=== PATIENT | female | born 1930 | race Caucasian/White ===

== ENCOUNTER 2016-11-04 11:53 | Inpatient (IN) | payer OTHER, MEDICARE ==
[~2016-11-04] VITALS: Ht 142.2 cm; Wt 57.0 kg
[~2016-11-04 11:53] MED LIST: ALBUAER19 INH; ASPI81TA28 PO; CARB25TA12 PO; CHOL100027 PO; CRG625 PO; FNTTP50 TD; FURO-85 PO; LEVO50TA PO; LOSA50TA6 PO; MIRT1TAB27 PO; MISC4CAP PO; MORP15TA PO; MULTTAB5 PO; PANT40TA PO; POTA-74 PO; PRED-301 PO
[2016-11-04] MEDS ORDERED: ONDANSETRON INJ 2 MG/ML 2 ML VIAL IV STA ×2 (12:11→16:25)
[2016-11-04] MEDS ORDERED: MoRPHine SULFATE 4 MG/ML 1 ML CARP\\VIAL IV STA ×2 (12:11→16:25)
[2016-11-04] MEDS ORDERED: SODIUM CHLORIDE 0.9% 500ML 500 ML IV STA (12:11)
[2016-11-04] MEDS ORDERED: LCHC12280 TOP (12:25)
[2016-11-04] MEDS ORDERED: SERT1TAB88 PO (12:25)
[2016-11-04] MEDS ORDERED: BMX1 PO (12:25)
[2016-11-04] MEDS ORDERED: OPTIRAY 320 IV PRN (12:30)
[2016-11-04 12:49] LABS: BASO % 0.4 %; BASO ABS # 0.03 K/uL (0-0.2); COMPLETE YES; EOS % 1.9 %; HEMATOCRIT 46.3 % (37-47); IG% 1.3 %; LYMPH % 10.6 %; LYMPH ABS # 0.76 K/uL (1.2-3.4); MEAN CELL VOLUME 96.3 fL (80-100); MEAN CORPUSCULAR HEMOGLOBIN 30.8 pg (25-34); MEAN PLATELET VOLUME 9.8 fL (7.4-10.4); MONO % 12.6 %; NEUT % 73.2 %; PLATELET COUNT 256 K/uL (130-400); RED BLOOD COUNT 4.81 M/uL (4.2-5.4)
[2016-11-04 13:11] LABS: BUN/CREATININE RATIO 18.8 (10-20); CALCIUM 9.7 mg/dl (8.5-10.1); CREATININE 1.9 mg/dl (0.60-1.20)
[2016-11-04 14:39] LABS: URINE APPEARANCE CLEAR (CLEAR); URINE BILIRUBIN NEG (NEG); URINE COLOR YELLOW; URINE NITRITE NEG (NEG); URINE PH 7.5 (4.5-7.5); URINE SPECIFIC GRAVITY 1.007 (1.000-1.030); UROBILINOGEN NEG (NEG); ZZUR CULT IF INDIC CLEAN CATCH NO
[2016-11-04 14:43] LABS: MANUAL MICROSCOPIC REQUIRED? NO; REVIEW REQ? NO
--- NOTE | 2016-11-04 15:23 | DIAGNOSTIC IMAGING REPORT ---
ADDENDUM Request has been made to compared to prior studies. No prior CT studies are available for comparison. There is a renal ultrasound dated 03/31/2015 mentioning a cystic mass in the pelvis with follow-up pelvic ultrasonography recommended at that time. There is no record of that being performed at this institution. Despite current maximum dimensions of 4.5 cm appearing to be diminished from the prior measurement of 6.8 cm, this variation is not considered to be accurate as the current modality is CT, with the prior modality ultrasound specifically of the kidneys. Electronically signed by: Jeff Dupree M.D. 11/08/2016 9:21 AM ORIGINAL REPORT ABDOMEN AND PELVIS CT WITHOUT CONTRAST CT DOSE: 466.32 mGy.cm HISTORY: Pain abd pain TECHNIQUE: Multiaxial CT images of the abdomen and pelvis were performed without contrast. COMPARISON STUDY: None. FINDINGS: Lung bases are clear. Minimal dependent basilar atelectasis. Prior cholecystectomy. Several calcified granulomas of liver as well as spleen. Small hiatal hernia. Fat-containing ventral hernia] periumbilical hernia maximum diameter 2.4 cm. This is a nonobstructive finding. Several fluid-filled loops of small bowel suggesting a mild nonobstructive ileus. Considerable wall thickening of the sigmoid colon with multiple diverticuli. There is a second smaller ventral hernia superior to the one previously described. This again is fat-containing and nonobstructing. Bladder is midline. There is a septated cystic mass superior to the residual uterus and/or atrophied uterus measuring 4.5 x 4.0 cm. This potentially is an ovarian lesion with pelvic ultrasonography is suggested. No significant adenopathy within the abdomen and pelvis or inguinal region. IMPRESSION: 1. 4.5 x 4.0 cm septated cystic lesion medially superior to the atrophied and/or partially removed uterus. 2. 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 follow-up pelvic ultrasonography is suggested. 3. Chronic sigmoid diverticulosis. 4. Mild reactive small bowel ileus. 5. Status post cholecystectomy. Electronically signed by: Jeff Dupree M.D. 11/04/2016 3:21 PM
[2016-11-04] MEDS ORDERED: SODIUM CHLORIDE 0.9% 1000ML 1,000 ML IV STA (16:25)
[2016-11-04] MEDS ORDERED: MoRPHine SULFATE 2 MG/ML CARP IV PRN (17:30)
[2016-11-04] MEDS ORDERED: MoRPHine SULFATE 4 MG/ML 1 ML CARP\\VIAL IV PRN (17:30)
[2016-11-04] MEDS ORDERED: SODIUM CHLORIDE 0.9% 1000ML 1,000 ML IV SCH (17:30)
[2016-11-04] MEDS ORDERED: ACETAMINOPHEN IV 650 MG in EMPTY BAG 0 ML IV PRN (17:30)
[2016-11-04] MEDS ORDERED: LORAZEPAM 2 MG/ML 1 ML VIAL IV PRN (17:30)
[2016-11-04] MEDS ORDERED: ALBUTEROL HFA 8 GM INHALER INH PRN (17:30)
[2016-11-04] MEDS ORDERED: LORAZEPAM 0.5 MG TAB PO PRN (17:30)
[2016-11-04] MEDS ORDERED: ACETAMINOPHEN 325 MG TAB PO PRN (17:45)
[2016-11-04] MEDS ORDERED: ONDANSETRON INJ 2 MG/ML 2 ML VIAL IV PRN (17:45)
[2016-11-04] MEDS ORDERED: MAGNESIUM HYDROXIDE SUSP 30 ML UDC PO PRN (17:45)
[2016-11-04] MEDS ORDERED: ALUMINUM/MAGNESIUM/SIMETH (MAALOX MAX) 30 ML UDC PO PRN (17:45)
--- NOTE | 2016-11-04 17:52 | EMERGENCY ROOM VISIT NOTE ---
History Report prepared by Karen: Heidi Kent Under the Supervision of: Dr. Tomi Gentile D.O. First contact with patient: 12:01 Chief Complaint: VOMITING History of Present Illness The patient is a 86 year old female who presents to the Emergency Room with complaints of worsening periumbilical abdominal pain that started 2-3 days ago. She states that nothing makes the pain better or worse. The patient has been experiencing the pain intermittently for a while but typically it goes away and it is not as severe. She is also experiencing nausea and vomiting. She states that she can't keep anything down. Per the patient's daughter, the patient began to experience diarrhea this morning and has 4 episodes. She denies pain or burning with urination and rash. Additionally, the patient complains of skin pain but would not specify where. The patient states that she has a hernia near her umbilicus that has been there for a while. She has a history of a cholecystectomy, appendectomy, and hysterectomy. No fevers greater than 100.4. Source of History: patient, family (daughter) Onset: 2-3 days ago Position: abdomen (periumbilical) Timing: worsening Modifying Factors (Worsening): other (none) Modifying Factors (Relieving): other (none) Associated Symptoms: + diarrhea, + nausea, + vomiting, No rash, No urinary symptoms (pain or burning with urination) Review of Systems See HPI for pertinent positives & negatives. A total of 10 systems reviewed and were otherwise negative. Past Medical & Surgical Medical Problems: (1) abdominal pain (2) Asthma (3) COPD exacerbation (4) Left leg cellulitis Surgical Problems: (1) S/P appendectomy (2) S/P cholecystectomy Family History FH: heart disease Hypertension Kidney disease Kidney stones Social History Smoking Status: Never Smoker Drug Use: none Marital Status: Housing Status: lives with family Occupation Status: retired Current/Historical Medications Scheduled Aspirin (Aspirin Ec), 81 MG PO QAM Bumetanide (Bumetanide), 1 MG PO BID Carbidopa/Levodopa (Sinemet 25MG/100MG), 1 TAB PO BID Carvedilol (Carvedilol), 6.25 MG PO BID Cholecalciferol (Vitamin D 1000 Unit), 1,000 INTER.UNIT PO QPM Lactic Acid (Ammonium Lactate Cream 12%), Unknown Dose TOP BID Levothyroxine Sodium (Synthroid), 50 MCG PO QAM Multiple Vitamins W/ Minerals (Centrum), 1 TAB PO QPM Pantoprazole (Protonix), 40 MG PO QAM Potassium Chloride (Potassium Chloride Er), 10 MEQ PO QAM Prednisone (Prednisone), 5 MG PO QAM Probiotic Product (Align), 4 MG PO DAILY Sertraline HCl (Sertraline HCl), 25 MG PO DAILY Scheduled PRN Albuterol Inhaler (Ventolin Inhaler), 2 PUFFS INH QID PRN for Shortness of Breath Morphine Sulfate (Morphine Sulfate Ir), 1.5 TABS PO TID PRN for Pain Allergies Coded Allergies: Codeine (Verified Allergy, Mild, 11/04/16) Penicillins (Verified Allergy, Mild, ., 11/04/16) tolerated cefepime Banana (Verified Allergy, Unknown, GI symptoms, 11/04/16) Erythromycin (Verified Allergy, Unknown, ., 11/04/16) Sulfa Antibiotics (Verified Allergy, Unknown, Unknown, 11/04/16) Vancomycin (Verified Allergy, Unknown, ., 11/04/16) Cantaloupe (Verified Adverse Reaction, Unknown, GI SYMPTOMS FROM UNSPECIFIED MELONS, 11/04/16) Physical Exam Vital Signs Date Time Temp Pulse Resp B/P Pulse Ox O2 Delivery O2 Flow Rate FiO2 11/04/16 15:52 93 20 150/73 95 Room Air 11/04/16 14:00 90 20 131/86 96 Room Air 11/04/16 12:09 94 Room Air 11/04/16 12:08 94 Room Air 11/04/16 12:08 98 11/04/16 12:05 36.7 94 20 168/101 94 Room Air Physical Exam GENERAL: alert, sitting up in bed, disheveled, chronically ill-appearing, moderate distress EYE EXAM: normal conjunctiva OROPHARYNX: no exudate, no erythema, lips, buccal mucosa, and tongue normal and mucous membranes are dry NECK: supple, no nuchal rigidity, no adenopathy, non-tender LUNGS: Clear to auscultation. Normal chest wall mechanics HEART: no murmurs, S1 normal and S2 normal ABDOMEN: abdomen soft, tender to palpation in the periumbilical region, normo- active bowel sounds, no masses, no rebound or guarding. BACK: Back is symmetrical on inspection and there is no deformity, no midline tenderness, no CVA tenderness. SKIN: no rashes and no bruising UPPER EXTREMITIES: upper extremities are grossly normal. LOWER EXTREMITIES: No pitting edema, calves equal bilaterally. NEURO EXAM: Normal sensorium, cranial nerves II-XII grossly intact, normal speech, no gross weakness of arms, no gross weakness of legs. Medical Decision & Procedures ER Provider Diagnostic Interpretation: CT results have been interpreted by the radiologist and reviewed by me. ABDOMEN AND PELVIS CT WITHOUT CONTRAST CT DOSE: 466.32 mGy.cm HISTORY: Pain abd pain TECHNIQUE: Multiaxial CT images of the abdomen and pelvis were performed without contrast. COMPARISON STUDY: None. FINDINGS: Lung bases are clear. Minimal dependent basilar atelectasis. Prior cholecystectomy. Several calcified granulomas of liver as well as spleen. Small hiatal hernia. Fat-containing ventral hernia] periumbilical hernia maximum diameter 2.4 cm. This is a nonobstructive finding. Several fluid-filled loops of small bowel suggesting a mild nonobstructive ileus. Considerable wall thickening of the sigmoid colon with multiple diverticuli. There is a second smaller ventral hernia superior to the one previously described. This again is fat-containing and nonobstructing. Bladder is midline. There is a septated cystic mass superior to the residual uterus and/or atrophied uterus measuring 4.5 x 4.0 cm. This potentially is an ovarian lesion with pelvic ultrasonography is suggested. No significant adenopathy within the abdomen and pelvis or inguinal region. IMPRESSION: 1. 4.5 x 4.0 cm septated cystic lesion medially superior to the atrophied and/or partially removed uterus. 2. 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 follow-up pelvic ultrasonography is suggested. 3. Chronic sigmoid diverticulosis. 4. Mild reactive small bowel ileus. 5. Status post cholecystectomy. Electronically signed by: Jeff Dupree M.D. 11/04/2016 3:21 PM Laboratory Results 11/04/16 12:26 Red Blood Count 4.81, Mean Corpuscular Volume 96.3, Mean Corpuscular Hemoglobin 30.8, Mean Corpuscular Hemoglobin Concent 32.0, Mean Platelet Volume 9.8, Neutrophils (%) (Auto) 73.2, Lymphocytes (%) (Auto) 10.6, Monocytes (%) (Auto) 12.6, Eosinophils (%) (Auto) 1.9, Basophils (%) (Auto) 0.4, Neutrophils # (Auto ) 5.27, Lymphocytes # (Auto) 0.76, Monocytes # (Auto) 0.91, Eosinophils # (Auto ) 0.14, Basophils # (Auto) 0.03 11/04/16 12:26 Test 11/04/16 12:26 11/04/16 14:15 White Blood Count 7.20 K/uL (4.8-10.8) Red Blood Count 4.81 M/uL (4.2-5.4) Hemoglobin 14.8 g/dL (12.0-16.0) Hematocrit 46.3 % (37-47) Mean Corpuscular Volume 96.3 fL (80-100) Mean Corpuscular Hemoglobin 30.8 pg (25-34) Mean Corpuscular Hemoglobin Concent 32.0 g/dl (32-36) Platelet Count 256 K/uL (130-400) Mean Platelet Volume 9.8 fL (7.4-10.4) Neutrophils (%) (Auto) 73.2 % Lymphocytes (%) (Auto) 10.6 % Monocytes (%) (Auto) 12.6 % Eosinophils (%) (Auto) 1.9 % Basophils (%) (Auto) 0.4 % Neutrophils # (Auto) 5.27 K/uL (1.4-6.5) Lymphocytes # (Auto) 0.76 K/uL (1.2-3.4) Monocytes # (Auto) 0.91 K/uL (0.11-0.59) Eosinophils # (Auto) 0.14 K/uL (0-0.5) Basophils # (Auto) 0.03 K/uL (0-0.2) RDW Standard Deviation 46.1 fL (36.4-46.3) RDW Coefficient of Variation 13.2 % (11.5-14.5) Immature Granulocyte % (Auto) 1.3 % Immature Granulocyte # (Auto) 0.09 K/uL (0.00-0.02) Anion Gap 12.0 mmol/L (3-11) Est Creatinine Clear Calc Drug Dose 14.9 ml/min Estimated GFR () 27.2 Estimated GFR (Non- 23.5 BUN/Creatinine Ratio 18.8 (10-20) Calcium Level 9.7 mg/dl (8.5-10.1) Total Bilirubin 0.9 mg/dl (0.2-1) Direct Bilirubin 0.3 mg/dl (0-0.2) Aspartate Amino Transf (AST/SGOT) 23 U/L (15-37) Alanine Aminotransferase (ALT/SGPT) 6 U/L (12-78) Alkaline Phosphatase 43 U/L (45-117) Total Protein 6.6 gm/dl (6.4-8.2) Albumin 3.3 gm/dl (3.4-5.0) Lipase 503 U/L (73-393) Urine Color YELLOW Urine Appearance CLEAR (CLEAR) Urine pH 7.5 (4.5-7.5) Urine Specific [place] 1.007 (1.000-1.030) Urine Protein NEG (NEG) Urine Glucose (UA) NEG (NEG) Urine Ketones NEG (NEG) Urine Occult Blood 1+ (NEG) Urine Nitrite NEG (NEG) Urine Bilirubin NEG (NEG) Urine Urobilinogen NEG (NEG) Urine Leukocyte Esterase SMALL (NEG) Urine WBC (Auto) 1-5 /hpf (0-5) Urine RBC (Auto) 0-4 /hpf (0-4) Urine Hyaline Casts (Auto) 1-5 /lpf (0-5) Urine Epithelial Cells (Auto) 5-10 /lpf (0-5) Urine Bacteria (Auto) NEG (NEG) Laboratory results per my review. Medications Administered Medications (Trade) Dose Ordered Sig/Zack Route Start Time Stop Time Status Last Admin Dose Admin Sodium Chloride (Nss 500ml) 500 ml @ 999 mls/hr Q31M STAT IV 11/04/16 12:11 11/04/16 12:41 DC 11/04/16 12:42 999 MLS/HR Ondansetron HCl (Zofran Inj) 4 mg NOW STAT IV 11/04/16 12:11 11/04/16 12:14 DC 11/04/16 12:42 4 MG Morphine Sulfate 4 mg 4 mg NOW STAT IV 11/04/16 12:11 11/04/16 12:14 DC 11/04/16 12:42 4 MG Sodium Chloride (Nss 1000ml) 1,000 ml @ 999 mls/hr Q1H1M STAT IV 11/04/16 16:25 12/30/16 17:25 DC 11/04/16 16:45 999 MLS/HR Morphine Sulfate (MoRPHine SULFATE INJ) 4 mg NOW STAT IV 11/04/16 16:25 11/04/16 16:26 DC 11/04/16 16:45 4 MG ECG Indication: nausea Rate (beats per minute): 97 Rhythm: sinus rhythm Findings: Q waves (Septal), ST depression (Lateral), left axis deviation, prolonged QT Comparison ECG Date: 02/26/2016 Change: prolonged QT and ST depressions are new ED Course ED COURSE: Vital signs were reviewed and showed hypertension. The patients medical record was reviewed The above diagnostic studies were performed and reviewed. ED treatments and interventions as stated above. 1203: The patient was evaluated in room C8. A complete history and physical examination was performed. 1211: Ordered Morphine Sulfate 4 mg IV, Zofran 4 mg IV, Sodium Chloride 500 ml @ 999 mls/hr IV 1303: I reassessed the patient. She is still nauseous. 1415: I went to reassess the patient but they are currently getting her urine sample. 1624: Upon reevaluation, the patient is resting comfortably. She requested more medicine for her pain. I discussed my findings with the patient and she understands and agrees with the treatment plan. Based on the patients age, coexisting illnesses, exam and lab findings the decision to treat as an inpatient was made. The patient remained stable while under my care. The patient will be evaluated for further management. 1625: Ordered Morphine Sulfate 4 mg IV, Sodium Chloride 1000 ml @ 999 mls/hr IV 1626: I reviewed the patient's case with Dr. Timur Valdivia [facility] [place]. He will evaluate the patient for further management. Medical Decision Differential diagnoses includes but is not limited to gastritis, peptic ulcer disease, GERD, gallbladder disease, pancreatitis, small bowel obstruction, acute coronary syndrome, pericarditis, ischemic bowel, irritable bowel disease, irritable bowel syndrome, appendicitis, diverticulitis, malignancy, hernia, urinary tract infection, torsion, /ectopic , perforation, trauma, infectious. Patient is an 86-year-old female who presents the ER for epigastric/ periumbilical abdominal pain which has been worsening for the past 2-3 days. She has associated vomiting and diarrhea. No fevers greater than 100.4. Patient has been unable to eat or drink anything for the past couple days. IV along with labs and CT were performed. Creatinine is chronically elevated at 1.9. Potassium is slightly low at 3 and lipase is elevated at 500. With the location of her pain this could be consistent with pancreatitis however the lipase is only mildly elevated and this elevation could be simply secondary to vomiting. UA was negative. CT of the abdomen and pelvis shows a mild ileus with pelvic lesion that is likely cancers. Family and patient were updated regards to this. She was given multiple doses of IV narcotics and Zofran. She has been unable to eat or drink. Her EKG does show ST wave changes in the lateral leads which I favor is demand secondary to the vomiting. Patient was hydrated and will be evaluated by 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 for further workup. Consults Time Called: 162 Consulting Physician: Dr. Timur TOSCANO Returned Call: [phone] I reviewed the patient's case with Dr. Timur TOSCANO. He will evaluate the patient for further management. Impression Primary Impression: Ileus Additional Impressions: Vomiting, Epigastric abdominal pain, Acute electrocardiogram changes Scribe Attestation The scribe's documentation has been prepared under my direction and personally reviewed by me in its entirety. I confirm that the note above accurately reflects all work, treatment, procedures, and medical decision making performed by me. Departure Information Dispostion Being Evaluated By Hospitalist Referrals Mil Durand M.D. (PCP) Patient Instructions A Signature Page, My [facility]
--- NOTE | 2016-11-04 18:27 | HISTORY & PHYSICAL EXAMINATION ---
DATE OF ADMISSION: 11/04/2016 REASON FOR PRESENTATION: Abdominal pain and back pain. ADMITTING DIAGNOSIS: Intractable back pain. HISTORY OF PRESENT ILLNESS: Ms. Madison is an 86-year-old female who presents with chronic both back and abdominal pain, worsened in nature. The patient states her back pain is near her sacrum and she points to sacroiliac joints. Abdominal pain. She had been telling her daughter was in her flanks; however, she told me it is bilateral lower quadrants and suprapubic. The patient has a history of a pelvic cyst has been evaluated by Dr. Mitchell as an outpatient, felt to be stable. In the Emergency Department, the patient required parenteral opiates for pain control. The patient takes chronic steroids. The patient has been having diarrhea at home, which she blames on using prune juice at the urging of one of her physicians. PAST MEDICAL HISTORY: Significant for COPD/asthma, left lower extremity cellulitis, appendectomy, hysterectomy, cholecystectomy, anxiety, chronic pain for which she takes opiates and steroids, chronic kidney disease stage III, hypothyroidism, stable pelvic mass, peripheral vascular disease, GERD and Parkinson disease. MEDICATIONS: On presentation include albuterol inhaler as needed, aspirin 81 a day, Bumex 1 mg b.i.d., Sinemet 25/100 b.i.d., Coreg 6.25 b.i.d., vitamin D 1000 a day, Synthroid 50 mcg a day, MSIR 22.5 mg t.i.d. p.r.n., multivitamin once a day, Protonix 40 a day, prednisone 5 a day, potassium 10 a day, probiotic daily daily. SOCIAL HISTORY: Does not smoke, never did. Does not drink. She is a , lives with her daughter who is accompanying her at the bedside. FAMILY HISTORY: Significant for heart disease, hypertension and kidney stones. REVIEW OF SYSTEMS: The patient is slightly confused after be giving her some pain control in the Emergency Department. She states that these are her typical pain, these have been made worse most recently, she cannot say by what. She does not necessarily associate her diarrhea with the pain, but the diarrhea is a new symptom. She denies any mechanical injuries to her back but her back pain is sharp in nature, listed a 10/10, worse with movement and palpation. PHYSICAL EXAMINATION: GENERAL: She is generally pleasant. She is lying on her side. She is awake and alert. She is oriented to person and place but not time. VITAL SIGNS: Show temperature 36.7, pulse 93, respiration rate is 20, BP 150/73, O2 sat 95% on room air. HEENT: PERRL, EOMI. Oropharynx is with dry mucous membranes. NECK: The trachea midline. There is no JVD. HEART: Regular, distant, without murmur. LUNGS: Clear without wheezes or crackles. Good air movement. BACK: Spine is kyphotic and she is mildly tender at the flanks at the bottom of her ribs but her ribs are actually touching her superior iliac crest. She is tender over the sacroiliac joint areas. She has no straight leg raising tenderness. ABDOMEN: Normoactive bowel sounds, soft, nontender. EXTREMITIES: Without edema. NEUROLOGIC: Cranial nerves II-XII are intact. Equal symmetrical strength and sensation in upper and lower extremity, but her general strength level is low, it is unclear whether this is from her medication or her overall milieu. LABORATORY DATA: White count of 7, H\T\H 14 and 46, platelet count 256. BUN and creatinine 36/1.9. Glucose is 106, potassium is low at 3.0, her calcium is intact, magnesium was not checked. Lipase is mildly elevated to 503. Her urinalysis is 1+ blood, small leukocyte esterase. IMAGING DATA: She did have a CT scan of her abdomen and pelvis which shows a 4.5 x 4 cm septated cystic mass in her pelvis, this is similar to the mass seen in March of 2015. ASSESSMENT: An 86-year-old female with exacerbations of her chronic pain, likely possibly from a metabolic encephalopathy from urinary tract infection POA with hypokalemia from diarrhea. PLAN: The patient will be admitted to our facility. She will be hydrated with potassium and she will be given a dose of magnesium tonight. She will have stool cultures done for both C. diff and general micro. She will have a urine cultures sent. She will have pain control with oral and intravenous pain medications. We will attempt to use Lidoderm patch. We will hold the diuretics and hydrate her with saline containing potassium for 2 liters. We will maintain her other home medications. Heparin will be used for DVT prevention. She is a full code. She will be given stress dose steroids at this time; they can be tapered when the primary team MTDD
[2016-11-04 19:48] VITALS: BP 170/89; PULSE 101; TEMP 36.9; O2SAT 91
[2016-11-04] MEDS ORDERED: MAGNESIUM SULFATE 1GM / D5W 1 GM in PREMIXED IN D5W 100 ML IV ONE (19:57)
[2016-11-04 20:33] LABS: HEMATOCRIT 42.6 % (37-47); MEAN CELL VOLUME 97.9 fL (80-100); MEAN CORPUSCULAR HEMOGLOBIN 30.8 pg (25-34); MEAN CORPUSCULAR HGB CONC 31.5 g/dl (32-36); MEAN PLATELET VOLUME 9.4 fL (7.4-10.4); PLATELET COUNT 205 K/uL (130-400); RED BLOOD COUNT 4.35 M/uL (4.2-5.4)
[2016-11-04] MEDS: POTASSIUM CHLORIDE INJ 40 MEQ in SODIUM CHLORIDE 0.9% 1000ML 1,000 ML IV SCH (20:36)
[2016-11-04 20:40] LABS: PROTHROMBIN TIME (PATIENT) 10.5 SECONDS (9.0-12.0)
[2016-11-04 21:45] VITALS: BP 155/88; PULSE 95; TEMP 36.9; O2SAT 93
[2016-11-04] MEDS: MoRPHine SULFATE IR 15 MG TAB (IMMEDIATE RELEASE) PO PRN (21:48)
[2016-11-04] MEDS: CARBIDOPA/LEVODOPA 25/100MG TAB PO SCH (21:48)
[2016-11-04] MEDS: CARVEDILOL 6.25 MG TAB PO SCH (21:48)
[2016-11-04] MEDS: HEPARIN SOD 5000 UNIT/0.5 ML CARP SQ SCH (21:49)
[2016-11-04] MEDS: HYDROCORTISONE IV 50 MG in SYRINGE 0 ML IV SCH (21:50)
[2016-11-04 22:27] VITALS: BP 170/89; PULSE 101; TEMP 36.9; O2SAT 91; Ht 142.2 cm; Wt 57.0 kg
[2016-11-05 00:30] VITALS: BP 171/94; PULSE 92; TEMP 36.6; O2SAT 92
[2016-11-05 06:00] LABS: HEMATOCRIT 38.8 % (37-47); MEAN CELL VOLUME 97.5 fL (80-100); MEAN CORPUSCULAR HEMOGLOBIN 29.9 pg (25-34); MEAN CORPUSCULAR HGB CONC 30.7 g/dl (32-36); MEAN PLATELET VOLUME 9.7 fL (7.4-10.4); PLATELET COUNT 195 K/uL (130-400); RED BLOOD COUNT 3.98 M/uL (4.2-5.4); WHITE BLOOD COUNT 5.57 K/uL (4.8-10.8)
[2016-11-05] MEDS: HYDROCORTISONE IV 50 MG in SYRINGE 0 ML IV SCH ×2 (06:36→13:39)
[2016-11-05] MEDS: LEVOTHYROXINE 50 MCG TAB PO SCH (06:36)
[2016-11-05] MEDS: MoRPHine SULFATE IR 15 MG TAB (IMMEDIATE RELEASE) PO PRN (06:44)
[2016-11-05 07:17] LABS: BUN/CREATININE RATIO 16.3 (10-20); CREATININE 1.6 mg/dl (0.60-1.20); POTASSIUM 4.2 mmol/L (3.5-5.1)
[2016-11-05 07:30] VITALS: BP 171/87; PULSE 83; TEMP 36.5; O2SAT 94
[2016-11-05] MEDS: POTASSIUM CHLORIDE INJ 40 MEQ in SODIUM CHLORIDE 0.9% 1000ML 1,000 ML IV SCH (08:29)
[2016-11-05 08:30] VITALS: O2SAT 94
[2016-11-05] MEDS: CARVEDILOL 6.25 MG TAB PO SCH ×2 (09:47→20:15)
[2016-11-05] MEDS: CARBIDOPA/LEVODOPA 25/100MG TAB PO SCH ×2 (09:47→20:14)
[2016-11-05] MEDS: PANTOprazole SOD 40 MG TAB PO SCH (09:48)
[2016-11-05] MEDS: ASPIRIN 81 MG ECTAB PO SCH (09:48)
[2016-11-05] MEDS: SERTRALINE HCL 50 MG TAB PO SCH (09:48)
[2016-11-05] MEDS: LIDODERM (LIDOCAINE) PATCH 5% TD SCH (09:49)
[2016-11-05] MEDS: HEPARIN SOD 5000 UNIT/0.5 ML CARP SQ SCH ×2 (09:50→20:16)
[2016-11-05 14:46] VITALS: BP 110/58; PULSE 70; TEMP 36.9; O2SAT 93
--- NOTE | 2016-11-05 15:39 | Progress Note ---
Subjective Date of Service: Nov 05, 2016. Subjective Pt evaluation today including: conversation w/ patient, conversation w/ family , physical exam, lab review, review of inpatient medication list Pain: chronic back pain PO Intake: improving Voiding: no voiding problems patient feeling better today but still very weak and tired she really wants to go home and rest but no real clear way to get her home because she is not strong enough to walk long talk with her and her daughters who live with her in [place] they agree that she needs to stay tonight and try to assess her strength tomorrow certainly fluids helped, she will continue to try to increase her intake Problem List Medical Problems: (1) Acute electrocardiogram changes Status: Acute (2) Cellulitis Status: Acute (3) Distal radius fracture, left Status: Acute (4) Encounter for wound re-check Status: Acute (5) Epigastric abdominal pain Status: Acute (6) Ileus Status: Acute (7) Left radial head fracture Status: Acute (8) Lower extremity edema Status: Acute (9) Swelling of left extremity Status: Acute (10) Traumatic ecchymosis of left lower leg Status: Acute (11) Vomiting Status: Acute Review of Systems Constitutional: + fatigue, + weakness Musculoskeletal: + joint pain (back) Neurologic: + balance problems, + weakness Psychiatric: + anxiety All Other Systems: Reviewed and Negative Medications Current Inpatient Medications Medications (Trade) Dose Ordered Sig/Zack Route Start Time Stop Time Status Last Admin Dose Admin Ioversol (Optiray 320) 125 ml UD PRN IV 11/04/16 12:30 11/08/16 12:29 Albuterol (Ventolin Hfa Inhaler) 2 puffs QID PRN INH 11/04/16 17:30 12/04/16 17:29 Aspirin (Ecotrin Tab) 81 mg QAM PO 11/05/16 08:00 12/05/16 08:59 11/05/16 09:48 81 MG Carbidopa/Levodopa (Sinemet 25/ 100MG Tab) 1 tab BID PO 11/04/16 20:00 12/04/16 20:59 11/05/16 09:47 1 TAB Carvedilol (Coreg Tab) 6.25 mg BID PO 11/04/16 20:00 12/04/16 20:59 11/05/16 09:47 6.25 MG Levothyroxine Sodium (Synthroid Tab) 50 mcg DAILYBB PO 11/05/16 06:30 12/05/16 06:59 11/05/16 06:36 50 MCG Pantoprazole Sodium (Protonix Tab) 40 mg QAM PO 11/05/16 08:00 12/05/16 08:59 11/05/16 09:48 40 MG Sertraline HCl 25 mg 25 mg DAILY PO 11/05/16 08:00 12/05/16 08:59 11/05/16 09:48 25 MG Hydrocortisone Sodium Succinate/ Syringe (Solu-Cortef IV/ Syringe) 1 ml @ 4 mls/min Q8 IV 11/04/16 22:00 12/04/16 21:59 11/05/16 13:39 4 MLS/MIN Morphine Sulfate (MoRPHine SULFATE INJ) 2 mg Q4H PRN IV 11/04/16 17:30 11/18/16 17:29 Morphine Sulfate (MoRPHine SULFATE INJ) 4 mg Q4H PRN IV 11/04/16 17:30 11/18/16 17:29 Lorazepam (Ativan Inj) 0.5 mg Q4H PRN IV 11/04/16 17:30 12/04/16 17:29 Lorazepam 0.5 mg 0.5 mg Q6 PRN PO 11/04/16 17:30 12/04/16 17:29 Acetaminophen/ Empty Bag (Ofirmev IV/ Empty Iv Bag 100ml) 65 ml @ 260 mls/hr Q6H PRN IV 11/04/16 17:30 12/04/16 17:29 Morphine Sulfate (MoRPHine SULFATE IR TAB) 15 mg Q8H PRN PO 11/04/16 17:30 11/18/16 17:29 11/05/16 06:44 15 MG Lidocaine (Lidoderm Patch 5%) 1 patch QAM TD 11/05/16 08:00 12/05/16 08:59 11/05/16 09:49 1 PATCH Miscellaneous 1 ea 1 ea DAILY@21 N/A 11/05/16 21:00 12/05/16 20:59 Potassium Chloride/Sodium Chloride (KCl Inj/Nss 1000ml) 1,020 ml @ 80 mls/hr [id number] IV 11/04/16 20:00 12/04/16 19:59 12/31/16 08:29 80 MLS/HR Acetaminophen (Tylenol Tab) 650 mg Q4H PRN PO 11/04/16 17:45 12/04/16 17:44 Al Hydrox/Mg Hydrox/Simethicone (Maalox Max Susp) 15 ml Q4H PRN PO 11/04/16 17:45 12/04/16 17:44 Magnesium Hydroxide (Milk Of Magnesia Susp) 30 ml Q6H PRN PO 11/04/16 17:45 12/04/16 17:44 Ondansetron HCl (Zofran Inj) 4 mg Q6H PRN IV 11/04/16 17:45 12/04/16 17:44 11/04/16 22:25 4 MG Heparin Sodium (Porcine) (Heparin Sq 5000 Unit/0.5ml) 5,000 unit Q12 SQ 11/04/16 21:00 12/04/16 20:59 11/05/16 09:50 5,000 UNIT Objective Vital Signs Date Time Temp Pulse Resp B/P Pulse Ox O2 Delivery O2 Flow Rate FiO2 11/05/16 14:46 36.9 70 18 110/58 93 Room Air 11/05/16 08:30 94 Room Air 11/05/16 07:30 36.5 83 20 171/87 94 Room Air 11/05/16 00:30 36.6 92 18 171/94 92 Room Air 11/04/16 23:59 Room Air 11/04/16 22:27 36.9 101 20 170/89 91 Room Air 11/04/16 21:45 36.9 95 20 155/88 93 Room Air 11/04/16 19:48 36.9 101 20 170/89 91 Room Air 11/04/16 17:45 87 20 151/87 93 Room Air 11/04/16 15:52 93 20 150/73 95 Room Air Physical Exam General Appearance: WD/WN, no apparent distress Eyes: normal inspection, EOMI, sclerae normal ENT: normal ENT inspection, hearing grossly normal, pharynx normal Neck: supple, no adenopathy, no JVD, trachea midline Respiratory/Chest: chest non-tender, no respiratory distress, no accessory muscle use, + decreased breath sounds Cardiovascular: regular rate, rhythm, no edema, no gallop, no JVD, no murmur Abdomen: normal bowel sounds, non tender, soft, no organomegaly Extremities: non-tender, normal inspection, no pedal edema, no calf tenderness , pelvis stable Neurologic/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, alert, normal mood/affect, oriented x 3, + motor weakness (generalized, cannot stand or transfer independently) Skin: normal color, warm/dry, no rash Laboratory Results Last 24 Hours Test 11/04/16 20:22 11/05/16 05:15 White Blood Count 6.40 K/uL 5.57 K/uL Red Blood Count 4.35 M/uL 3.98 M/uL Hemoglobin 13.4 g/dL 11.9 g/dL Hematocrit 42.6 % 38.8 % Mean Corpuscular Volume 97.9 fL 97.5 fL Mean Corpuscular Hemoglobin 30.8 pg 29.9 pg Mean Corpuscular Hemoglobin Concent 31.5 g/dl 30.7 g/dl RDW Standard Deviation 48.0 fL 48.0 fL RDW Coefficient of Variation 13.4 % 13.3 % Platelet Count 205 K/uL 195 K/uL Mean Platelet Volume 9.4 fL 9.7 fL Prothrombin Time 10.5 SECONDS Prothromb Time International Ratio 1.0 Sodium Level 147 mmol/L Potassium Level 4.2 mmol/L Chloride Level 110 mmol/L Carbon Dioxide Level 27 mmol/L Anion Gap 10.0 mmol/L Blood Urea Nitrogen 26 mg/dl Creatinine 1.60 mg/dl Est Creatinine Clear Calc Drug Dose 17.8 ml/min Estimated GFR () 33.5 Estimated GFR (Non- 28.9 BUN/Creatinine Ratio 16.3 Random Glucose 70 mg/dl Calcium Level 8.0 mg/dl Assessment and Plan 86 yo female with h/o chronic back pain, chronic ovarian cyst, presented with increased weakness, confusion, diarrhea - Dehydration due to GI losses causing weakness and confusion: treated with IV fluids confusion resolved today, still very weak and cannot return home at this time safely PT/OT ordered no further diarrhea at this time no signs of UTI, culture negative continue IV fluids over night and encourage PO intake - KOREY on CKD stage III: improving with Cr down to 1.6 from 1.9, continue fluids - Hypokalemia: resolved, NSS at 80cc/hr over night, remove K from fluids - Parkinson disease: continue Sinemet - Chronic pain: continue home medications Try to return home tomorrow
[2016-11-05] MEDS: SODIUM CHLORIDE 0.9% 1000ML 1,000 ML IV SCH (15:47)
[2016-11-05] MEDS ORDERED: COUGH DROP (SUGAR FREE) LOZ 24 LOZ/1 BOX ONE (19:13)
[2016-11-05] MEDS ORDERED: COUGH DROP (SUGAR FREE) LOZ 24 LOZ/1 BOX PO PRN (19:15)
[2016-11-06 00:03] VITALS: BP 150/67; PULSE 87; O2SAT 96
[2016-11-06] MEDS: SODIUM CHLORIDE 0.9% 1000ML 1,000 ML IV SCH (04:29)
[2016-11-06] MEDS: MoRPHine SULFATE IR 15 MG TAB (IMMEDIATE RELEASE) PO PRN (04:49)
[2016-11-06] MEDS: LEVOTHYROXINE 50 MCG TAB PO SCH (06:20)
[2016-11-06 07:15] LABS: BUN/CREATININE RATIO 15.9 (10-20); CALCIUM 7.2 mg/dl (8.5-10.1); CREATININE 1.4 mg/dl (0.60-1.20); POTASSIUM 4.1 mmol/L (3.5-5.1)
[2016-11-06 07:19] VITALS: BP 149/64; PULSE 65; TEMP 36.2; O2SAT 97
[2016-11-06 08:30] VITALS: O2SAT 97
[2016-11-06] MEDS: PANTOprazole SOD 40 MG TAB PO SCH (08:34)
[2016-11-06] MEDS: SERTRALINE HCL 50 MG TAB PO SCH (08:35)
[2016-11-06] MEDS: ASPIRIN 81 MG ECTAB PO SCH (08:35)
[2016-11-06] MEDS: CARBIDOPA/LEVODOPA 25/100MG TAB PO SCH (08:35)
[2016-11-06] MEDS: CARVEDILOL 6.25 MG TAB PO SCH (08:35)
[2016-11-06] MEDS: LIDODERM (LIDOCAINE) PATCH 5% TD SCH (08:35)
[2016-11-06] MEDS: HEPARIN SOD 5000 UNIT/0.5 ML CARP SQ SCH (08:38)
--- NOTE | 2016-11-06 10:14 | Discharge Instructions ---
Discharge Instructions Admission Reason for Admission: Abdominal Pain Discharge Discharge Diagnosis / Problem: Dehydration, acute renal failure (resolved) Discharge Goals Goal(s): Improve function, Increase independence Activity Recommendations Activity Limitations: resume your previous activity Lifting Limitations: none Exercise/Sports Limitations: none Shower/Bathe: no limitations Driving or Machine Use: no driving . Instructions / Follow-Up Instructions / Follow-Up Medications: no changes made You were dehydrated and weak, had renal failure due to the dehydration: Treated with IV fluids, renal function back to baseline, more energy, eating better. Therapy evaluated you, felt you were strong enough to return home with the care that your daughters provide. Make sure you make an extra effort to stay hydrated and eat well the next several day, continue to get rest but also get up and move around to improve your strength. FOLLOW UP - call office of Dr. Durand to schedule a visit in the next week, request a hospital follow up for transition of care Current Hospital Diet Patient's current hospital diet: Regular Diet Discharge Diet Recommended Diet: Regular Diet Pending Studies Studies pending at discharge: no Laboratory Results Last Resulted CBC 11/05/16 05:15 Last Resulted BMP 11/06/16 05:25 Medical Emergencies . Who to Call and When: Medical Emergencies: If at any time you feel your situation is an emergency, please call 911 immediately. . Non-Emergent Contact Non-Emergency issues call your: Primary Care Provider Call Non-Emergent contact if: you have a fever, your pain is concerning you, you have any medication questions . . "Provider Documentation" section prepared by Ben Courtney. VTE Core Measure Inpt VTE Proph given/why not?: SCD's [place] Drug Monitoring Program Search Results: no issues identified
[2016-11-06 11:27] VITALS: BP 149/64; PULSE 65; TEMP 36.2; O2SAT 97
[2016-11-06] MEDS ORDERED: LDDP5 TD (12:49)
[2016-11-06] MEDS ORDERED: ZTHM250 PO (12:49)
[2016-11-06] MEDS ORDERED: AZITHROMYCIN 250 MG TAB PO ONE (13:00)
[2016-11-06] MEDS ORDERED: METR-163 PO (13:28)
--- NOTE | 2016-11-06 15:56 | Discharge Summary ---
Discharge Summary Admission Date: Nov 04, 2016 at 17:47 Discharge Date: Nov 06, 2016 Discharge Disposition: Home Principal Diagnosis: Acute kidney injury Problems/Secondary Diagnoses: C difficile infection Acute bronchitis Chronic back pain with deconditioning Immunizations: Have You Had Influenza Vaccine: No History of Tetanus Vaccine?: Yes Tetanus Immunization Date: Apr 06, 2006 History of Pneumococcal: No History of Hepatitis B Vaccine: Unknown Procedures: none Consultations: none Medication Reconciliation New Medications: Azithromycin (Azithromycin) 250 Mg Tab 250 MG PO DAILY, #4 TABS 0 Refills Metronidazole (Flagyl) 500 Mg Tab 500 MG PO TID for 14 Days, #42 TAB Lidocaine (Lidocaine) 1 Patch Tdsy 1 PATCH TD QAM, #30 PATCH 1 Refill Continued Medications: Albuterol Inhaler (Ventolin Inhaler) Aers 2 PUFFS INH QID PRN for Shortness of Breath, INHALER Aspirin (Aspirin Ec) 81 Mg Tab 81 MG PO QAM Bumetanide (Bumetanide) 1 Mg Tab 1 MG PO BID, #60 Carbidopa/Levodopa (Sinemet 25MG/100MG) Tab 1 TAB PO BID, TAB Carvedilol (Carvedilol) 6.25 Mg Tab 6.25 MG PO BID, #60 Cholecalciferol (Vitamin D 1000 Unit) 1,000 Unit Cap 1000 INTER.UNIT PO QPM, CAP Lactic Acid (Ammonium Lactate Cream 12%) Unknown Strength Cr Unknown Dose TOP BID, #385 Levothyroxine Sodium (Synthroid) 50 Mcg Tab 50 MCG PO QAM, TAB Morphine Sulfate (Morphine Sulfate Ir) 15 Mg Tab 1.5 TABS PO TID PRN for Pain, #100 Multiple Vitamins W/ Minerals (Centrum) 1 Tab Tab 1 TAB PO QPM Pantoprazole (Protonix) 40 Mg Tab 40 MG PO QAM, TAB Potassium Chloride (Potassium Chloride Er) 10 Meq Tab 10 MEQ PO QAM, TAB Prednisone (Prednisone) 5 Mg Tab 5 MG PO QAM Probiotic Product (Align) 4 Mg Cap 4 MG PO DAILY Sertraline HCl (Sertraline HCl) 25 Mg Tab 25 MG PO DAILY, #30 Discharge Exam Patient feeling stronger today, all she wants to do is go home and rest. She ambulated 15 feet twice with PT using walker, cleared to go home Discussed with patient and daughters about going home, told them that she would not have to be discharged if they were uncomfortable with the idea, they agreed that she could go. Concerned about wheezing, discussed that it was faint today, lungs were mostly clear, most sounds from throat. Also, patient ended up testing positive for C diff even though she did not have diarrhea. Planned on using Zithromax for bronchitis so explained that we would need to treat the C diff with Flagyl patient eating and drinking well, discussed that renal function was back to baseline Review of Systems: Constitutional: + fatigue, + weakness, No chills, No fever, No sweats, No weight loss Eyes: No diplopia, No discharge, No eye pain, No problem reported, No redness, No worsening of vision ENT: No dental problems, No hearing loss, No nasal symptoms, No problem reported, No sore throat, No tinnitus, No trouble swallowing, No unusual epistaxis Respiratory: + cough, + wheezing, No dyspnea at rest, No dyspnea on exertion , No hemoptysis, No shortness of breath, No sputum Cardiovascular: No PND, No chest pain, No claudication, No edema, No orthopnea, No palpitations, No problem reported Abdomen: No GI bleeding, No constipation, No diarrhea, No nausea, No pain, No problem reported, No vomiting Musculoskeletal: + joint pain (back, chronic), + muscle pain (back, chronic) , No calf pain, No problem reported, No swelling Genitourinary - Female: No dysuria, No hematuria, No urinary frequency, No urinary incontinence, No urinary retention, No urinary urgency Neurologic: + balance problems, + weakness, No memory loss, No numbness/ tingling, No paralysis, No problem reported, No vertigo Psychiatric: + anxiety, No anhedonism, No depression symptoms, No insomnia, No problem reported, No substance abuse Endocrine: No excessive thirst, No excessive urination, No fatigue, No problem reported Hematologic / Lymphatic: No abnormal bleeding/bruising, No clotting problems , No night sweats, No problem reported, No swollen lymph nodes Integumentary: No bleeding, No color change, No itch, No new/changing skin lesions, No problem reported, No rash Physical Exam: General Appearance: no apparent distress, + thin Eyes: normal inspection, EOMI, sclerae normal ENT: normal ENT inspection, hearing grossly normal, pharynx normal Neck: supple, no adenopathy, no JVD, trachea midline Respiratory/Chest: chest non-tender, no respiratory distress, no accessory muscle use, + wheezing (faint, more on right, mostly upper airway sounds, lower lungs clear and moving air) Cardiovascular: regular rate, rhythm, no edema, no gallop, no JVD, no murmur , normal peripheral pulses Abdomen / GI: normal bowel sounds, non tender, soft, no organomegaly Extremities: normal inspection, no calf tenderness, normal capillary refill , no pedal edema, pelvis stable, + pertinent finding (decrased range of motion of back, legs due to pain, chronic) 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, alert, normal reflexes, oriented x 3, + abnormal gait, + motor weakness (generalized), + pertinent finding (anxious, tearful at times, wanting to go home) Skin: normal color, warm/dry, no rash Lymphatic: no adenopathy Hospital Course 86 yo female with h/o chronic back pain, chronic ovarian cyst, presented with increased weakness, confusion, diarrhea - Dehydration due to GI losses causing weakness and confusion: treated with IV fluids, Cr back to baseline eating better today confusion resolved today, still weak but stronger, wants to return home PT/OT ordered - recommended return home no further diarrhea at this time, however, tested positive for C diff no signs of UTI, culture negative - C diff diarrhea: stools actually now solid, but will treat with Flagyl TID x 14 days - Mild bronchitis: treat with Z gabe, she has albuterol at home, use QID - KOREY on CKD stage III: resolved with Cr down to 1.4 from 1.9, no further need for IV fluids - Hypokalemia: resolved, NSS at 80cc/hr over night, remove K from fluids - Parkinson disease: continue Sinemet - Chronic pain: continue home medications, prescribed Lidoderm patch because it seems to help Long talk with patient and daughters, PT recommends that she can return home. concerned about ability to get in the house discussed that she did not have to be discharged if they want to see if she can get even stronger daughters and patient opted for discharge to home, they feel they should be able to get her in the house follow up with PCP in one week Total Time Spent: Greater than 30 minutes This includes examination of the patient, discharge planning, medication reconciliation, and communication with other providers. Discharge Instructions Please refer to the electronic Patient Visit Report (Discharge Instructions) for additional information. Follow-Up Dr. Durand in one week Additional Copies To Mil Durand M.D.
== END 2016-11-06 14:30 | disposition home or self-care (01) | DRG 683 ==
LOC: ENRESERVDT → ENRESERVTM → EDBD 11:53 → C.EDC 11:55 → C.4E 17:47 → UNDOADMIN 17:47
PROVIDERS: ADMIT Internal Medicine; ATTEND Internal Medicine
DX: N17.9 Acute kidney failure, unspecified (principal); A04.7 Enterocolitis due to Clostridium difficile; J44.0 Chronic obstructive pulmonary disease with (acute) lower respiratory infection; E86.0 Dehydration; J45.909 Unspecified asthma, uncomplicated; G89.29 Other chronic pain; M54.9 Dorsalgia, unspecified; N94.89 Other specified conditions associated with female genital organs and menstrual cycle; R41.0 Disorientation, unspecified; E87.6 Hypokalemia; N18.3 Chronic kidney disease, stage 3 (moderate); E03.9 Hypothyroidism, unspecified; I73.9 Peripheral vascular disease, unspecified; G20 Parkinson's disease; K21.9 Gastro-esophageal reflux disease without esophagitis; Z82.49 Family history of ischemic heart disease and other diseases of the circulatory system; Z79.52 Long term (current) use of systemic steroids; Z79.82 Long term (current) use of aspirin; Z79.899 Other long term (current) drug therapy

== ENCOUNTER 2016-11-09 00:04 | Inpatient (IN) | payer OTHER, MEDICARE ==
[2016-11-09] VITALS (8 sets, daily range): BP systolic 133–161; BP diastolic 70–90; PULSE 88–106; TEMP 36.8–37.3; O2SAT 94–98; Ht 142.2 cm; Wt 58.5 kg
[~2016-11-09] VITALS: Ht 142.2 cm; Wt 58.5 kg
[~2016-11-09 00:04] MED LIST changes: +BMX1 PO; -FNTTP50 TD; -FURO-85 PO; +LCHC12280 TOP; +LDDP5 TD; -LOSA50TA6 PO; +METR-163 PO; -MIRT1TAB27 PO; +SERT1TAB88 PO; +ZTHM250 PO
[2016-11-09] MEDS ORDERED: AZIT250T PO (01:02)
[2016-11-09] MEDS ORDERED: FNTTP50 TD (01:11)
[2016-11-09] MEDS ORDERED: lidocaine patch TD (01:12)
[2016-11-09] MEDS ORDERED: METR-163 PO (01:13)
[2016-11-09 01:34] LABS: BASO % 0.6 %; BASO ABS # 0.03 K/uL (0-0.2); COMPLETE YES; EOS % 1.7 %; HEMATOCRIT 38.4 % (37-47); IG% 3.6 %; LYMPH % 17.6 %; LYMPH ABS # 0.94 K/uL (1.2-3.4); MEAN CELL VOLUME 93.4 fL (80-100); MEAN CORPUSCULAR HEMOGLOBIN 30.2 pg (25-34); MEAN CORPUSCULAR HGB CONC 32.3 g/dl (32-36); MEAN PLATELET VOLUME 9.8 fL (7.4-10.4); MONO % 10.7 %; NEUT % 65.8 %; PLATELET COUNT 196 K/uL (130-400); RED BLOOD COUNT 4.11 M/uL (4.2-5.4); WHITE BLOOD COUNT 5.34 K/uL (4.8-10.8)
[2016-11-09 01:52] LABS: BUN/CREATININE RATIO 11.4 (10-20); CALCIUM 9.1 mg/dl (8.5-10.1); CREATININE 1.2 mg/dl (0.60-1.20); MAGNESIUM 2.4 mg/dl (1.8-2.4); POTASSIUM 4.8 mmol/L (3.5-5.1)
[2016-11-09] MEDS ORDERED: METOCLOPRAMIDE HCL INJ 5 MG/ML 2 ML VIAL IV SCH (02:30)
[2016-11-09] MEDS ORDERED: ONDANSETRON INJ 2 MG/ML 2 ML VIAL IV PRN (02:30)
[2016-11-09] MEDS ORDERED: METRONIDAZOLE / NSS 500 MG in PREMIXED NSS 100 ML IV SCH (02:30)
[2016-11-09] MEDS ORDERED: ACETAMINOPHEN 325 MG TAB PO PRN (02:30)
[2016-11-09] MEDS ORDERED: ALBUTEROL 0.083% NEBU SOLN 3 ML VIAL INH PRN (02:45)
[2016-11-09] MEDS ORDERED: MoRPHine SULFATE 2 MG/ML CARP IV PRN (02:45)
[2016-11-09] MEDS ORDERED: METOCLOPRAMIDE HCL INJ 5 MG/ML 2 ML VIAL IV PRN (02:45)
--- NOTE | 2016-11-09 03:29 | History and Physical ---
History & Physical Date & Time of Service: Nov 09, 2016 at 03:01 Chief Complaint: Vomiting,Wheezing Primary Care Physician: Mil Durand M.D. History of Present Illness Source: patient, family 86 y/o F w/Hx COPD, CAD, OA and chronic pain with narcotic-dependence. She was recently admitted with N/V and diarrhea and diagnosed with C-diff. She has also been complaining of increasing SOB, LE edema and a productive cough with wheezing. Per her daughters she had been complaining of all the above symptoms for a few weeks and prior to her recent admission however her symptoms have now worsened. She was able to tolerate a small amount of soup for dinner but has had difficulty maintaining adequate intake due to persistent nausea and vomiting. She denies CP, has not reported fevers, dysuria, or confusion. She does feel generally weak and has chronic abdominal and back pain which are stable. Past Medical/Surgical History Medical Problems: (1) Asthma Status: Chronic (2) COPD exacerbation Status: Resolved (3) Left leg cellulitis Status: Chronic 4) C diff x 2 5) Osteoarthritis 6) Chronic back and abdominal pain with narcotic-dependence 7) Pelvic cyst 8) CAD - reported histroy of silent [place] Surgical Problems: (1) S/P appendectomy Status: Resolved (2) S/P cholecystectomy Status: Resolved Family History FH: heart disease Hypertension Kidney disease Kidney stones Social History Smoking Status: Never Smoker Drug Use: none Marital Status: Housing status: lives with family Occupational Status: retired Immunizations History of Influenza Vaccine: No History of Tetanus Vaccine?: Yes Tetanus Immunization Date: Apr 06, 2006 History of Pneumococcal: No History of Hepatitis B Vaccine: Unknown Multi-Drug Resistant Organisms History of MDRO: Yes Type of MDRO: MRSA Allergies Coded Allergies: Codeine (Verified Allergy, Mild, 11/09/16) Penicillins (Verified Allergy, Mild, ., 11/09/16) tolerated cefepime Banana (Verified Allergy, Unknown, GI symptoms, 11/09/16) Erythromycin (Verified Allergy, Unknown, ., 11/09/16) Sulfa Antibiotics (Verified Allergy, Unknown, Unknown, 11/09/16) Vancomycin (Verified Allergy, Unknown, ., 11/09/16) Cantaloupe (Verified Adverse Reaction, Unknown, GI SYMPTOMS FROM UNSPECIFIED MELONS, 11/09/16) Home Medications Scheduled Aspirin (Aspirin Ec), 81 MG PO QAM Azithromycin (Zithromax), 250 MG PO DAILY Bumetanide (Bumetanide), 1 MG PO BID Carbidopa/Levodopa (Sinemet 25MG/100MG), 1 TAB PO BID Carvedilol (Carvedilol), 6.25 MG PO BID Cholecalciferol (Vitamin D 1000 Unit), 1,000 INTER.UNIT PO QPM Lactic Acid (Ammonium Lactate Cream 12%), 1 APPLN TOP BID Levothyroxine Sodium (Synthroid), 50 MCG PO QAM Metronidazole (Flagyl), 500 MG PO TID Multiple Vitamins W/ Minerals (Centrum), 1 TAB PO QPM Pantoprazole (Protonix), 40 MG PO QAM Potassium Chloride (Potassium Chloride Er), 10 MEQ PO QAM Prednisone (Prednisone), 5 MG PO QAM Probiotic Product (Align), 4 MG PO DAILY Sertraline HCl (Sertraline HCl), 25 MG PO DAILY [lidocaine patch], 1 PATCH TD QAM Scheduled PRN Albuterol Inhaler (Ventolin Inhaler), 2 PUFFS INH QID PRN for Shortness of Breath Morphine Sulfate (Morphine Sulfate Ir), 1.5 TABS PO TID PRN for Pain Review of Systems Constitutional: + fatigue, + weakness, No chills, No fever, No sweats Eyes: No worsening of vision ENT: No hearing loss, No nasal symptoms, No unusual epistaxis Respiratory: + cough, + dyspnea at rest, + dyspnea on exertion, + shortness of breath, + sputum, + wheezing Cardiovascular: No PND, No chest pain, No orthopnea Abdomen: + diarrhea, + nausea, + pain, + vomiting Musculoskeletal: + joint pain, + muscle pain (Chronic), + problem reported, + swelling (increased LE edema) Genitourinary - Female: No dysuria, No urinary frequency, No urinary urgency Neurologic: No memory loss, No paralysis Psychiatric: No depression symptoms Endocrine: No fatigue Hematologic / Lymphatic: No abnormal bleeding/bruising Integumentary: No rash Allergic / Immunologic: No environmental allergies Physical Exam Vital Signs Date Time Temp Pulse Resp B/P Pulse Ox O2 Delivery O2 Flow Rate FiO2 11/09/16 01:02 77 20 180/89 97 Room Air 11/09/16 00:11 36.8 75 20 96 Room Air General Appearance: no apparent distress, + pertinent finding (Pleasant elderly female - appears slightly lethargic - coughs during exam ) Head: normocephalic, atraumatic Eyes: normal inspection ENT: normal ENT inspection, pharynx normal Neck: supple, no JVD Respiratory/Chest: chest non-tender, no accessory muscle use, + decreased breath sounds (No air entry at L lung base), + crackles (Mild crackles right base ), + wheezing (wheezing throughout lungs) Cardiovascular: regular rate, rhythm, no JVD Abdomen/GI: normal bowel sounds, non tender, soft Back: + pertinent finding (Kyphosis) Extremities/Musculoskelatal: + pedal edema, + pertinent finding ( Osteoarthritic deformities of distal extremities) Neurologic/Psych: die caster II-XII nml as tested, no motor/sensory deficits, alert, normal mood/affect, oriented x 3 Skin: normal color, + pertinent finding (Shallow ulcerations and stasis changes of LEs - no cellulitis) Diagnostics Laboratory Results Results Past 24 Hours Test 11/09/16 01:23 Range/Units White Blood Count 5.34 4.8-10.8 K/uL Red Blood Count 4.11 4.2-5.4 M/uL Hemoglobin 12.4 12.0-16.0 g/dL Hematocrit 38.4 37-47 % Mean Corpuscular Volume 93.4 80-100 fL Mean Corpuscular Hemoglobin 30.2 25-34 pg Mean Corpuscular Hemoglobin Concent 32.3 32-36 g/dl Platelet Count 196 130-400 K/uL Mean Platelet Volume 9.8 7.4-10.4 fL Neutrophils (%) (Auto) 65.8 % Lymphocytes (%) (Auto) 17.6 % Monocytes (%) (Auto) 10.7 % Eosinophils (%) (Auto) 1.7 % Basophils (%) (Auto) 0.6 % Neutrophils # (Auto) 3.52 1.4-6.5 K/uL Lymphocytes # (Auto) 0.94 1.2-3.4 K/uL Monocytes # (Auto) 0.57 0.11-0.59 K/uL Eosinophils # (Auto) 0.09 0-0.5 K/uL Basophils # (Auto) 0.03 0-0.2 K/uL RDW Standard Deviation 44.8 36.4-46.3 fL RDW Coefficient of Variation 13.2 11.5-14.5 % Immature Granulocyte % (Auto) 3.6 % Immature Granulocyte # (Auto) 0.19 0.00-0.02 K/uL Sodium Level 144 136-145 mmol/L Potassium Level 4.8 3.5-5.1 mmol/L Chloride Level 109 98-107 mmol/L Carbon Dioxide Level 25 21-32 mmol/L Anion Gap 10.0 3-11 mmol/L Blood Urea Nitrogen 14 7-18 mg/dl Creatinine 1.20 0.60-1.20 mg/dl Est Creatinine Clear Calc Drug Dose 23.8 ml/min Estimated GFR () 47.4 Estimated GFR (Non- 40.9 BUN/Creatinine Ratio 11.4 10-20 Random Glucose 91 70-99 mg/dl Calcium Level 9.1 8.5-10.1 mg/dl Magnesium Level 2.4 1.8-2.4 mg/dl Troponin I 0.023 0-0.045 ng/ml Pro-B-Type Natriuretic Peptide 2100 0-1800 pg/ml Chemistry Specimen Hemolysis Diagnostic Radiology CXR is consistent with COPD EKG Sinus , IVCD - evidence of previous infarct - no acute changes or evidence of acute ischemia Impression Assessment and Plan 86 y/o F w/Hx COPD, CAD, OA and chronic pain with narcotic-dependence. She was recently admitted with N/V and diarrhea and diagnosed with C-diff. She has also been complaining of increasing SOB, LE edema and a productive cough with wheezing. Per her daughters she had been complaining of all the above symptoms for a few weeks and prior to her recent admission however her symptoms have now worsened. 1) SOB, cough/wheezing - lung exam is abnormal with no air entry into LLL audible - pt was D/Cd recently with a course of Zithromax and uses albuterol PRN - She has a grandson at [facility] with a respiratory illness however her symptoms preceded his. We will obtain a CT chest to determine if she has pneumonia. If pneumonia is present, considering her persistent nausea and vomiting, we would treat for aspiration. A swallow eval will be requested. We will treat for a COPD exacerbation due to her wheezing and persistent SOB. CHF is in the differential although clinically less likely and would avoid diuresis empirically as she has had persistent N/V 2) Nausea and vomiting - intermittent and present for several weeks - Pt will be placed on scheduled Reglan and PRN Zofran - may need GI eval if this is not effective. 3) C - diff - her N/V may be worsened by PO Flagyl - we will change to PO vanc which was previously effective per pt - above allergy info is erroneous 4) CAD - marginal troponin increase without additional evidence of ACS - will repeat troponon, cont ASA, monitor on telemetry 5) LE edema - Lasix held pending resolution of nausea and resumption of adequate intake. May restart depending on CT restart if there is evidence of volume overload. 6) Chronic pain - will remain on prescribed narcotics and IV for breakthrough if she cannot tolerate PO Full code - heparin prophylaxis Above discussed with daughters at bedside Total time for this admit including review of records, imaging, EKG, med rec - discussion with ER attending and pt/family - 42 min Level of Care Telemetry Resuscitation Status FULL RESUSCITATION VTE Prophylaxis VTE Risk Assessment Done? Y/N: Yes Risk Level: Moderate Given or contraindicated: Unfractionated heparin SQ
[2016-11-09] MEDS: LEVOTHYROXINE 50 MCG TAB PO SCH (05:20)
[2016-11-09] MEDS: METHYLPREDNISOLONE IV 40 MG in SYRINGE 0 ML IV SCH ×2 (06:18→15:12)
[2016-11-09] MEDS: HEPARIN SOD 5000 UNIT/0.5 ML CARP SQ SCH ×3 (06:40→19:25)
--- NOTE | 2016-11-09 06:58 | DIAGNOSTIC IMAGING REPORT ---
CHEST ONE VIEW PORTABLE CLINICAL HISTORY: Shortness of breath. COMPARISON STUDY: Chest radiograph May 04, 2016. FINDINGS: The patient is rotated. No consolidation is identified and there is no evidence of pulmonary edema. Cardiomediastinal silhouette is stable. No pneumothorax or pleural effusion is identified. IMPRESSION: No acute cardiopulmonary findings. Electronically signed by: Frank Velez M.D. 11/09/2016 6:57 AM
--- NOTE | 2016-11-09 06:59 | EMERGENCY ROOM VISIT NOTE ---
History Report prepared by Karen: Jignesh Schroeder Under the Supervision of: Dr. Maurice Joyner M.D. First contact with patient: 00:21 Chief Complaint: VOMITING Stated Complaint: VOMITING,WHEEZING History of Present Illness The patient is an 86 year old female who presents to the Emergency Room with complaints of persistent nausea since earlier today. The patient vomited today as well. She has had increased shortness of breath and wheezing for several days. She is retaining fluid in her lower extremities. The patient was recently started on Azithromycin for the breathing problems, which has worsened since then. She was also recently started on Flagyl for C. Diff. The patient had chicken noodle soup for dinner. Source of History: patient Onset: today Position: other (GI) Quality: other (nauseous) Timing: other (persistent) Associated Symptoms: + SOB, + vomiting Note: + fluid retention legs. Review of Systems See HPI for pertinent positives & negatives. A total of 10 systems reviewed and were otherwise negative. Past Medical & Surgical Medical Problems: (1) abdominal pain (2) Asthma (3) COPD exacerbation (4) Dyspnea (5) Left leg cellulitis Surgical Problems: (1) S/P appendectomy (2) S/P cholecystectomy Family History FH: heart disease Hypertension Kidney disease Kidney stones Social History Smoking Status: Never Smoker Drug Use: none Marital Status: Housing Status: lives with family Occupation Status: retired Current/Historical Medications Scheduled Aspirin (Aspirin Ec), 81 MG PO QAM Azithromycin (Zithromax), 250 MG PO DAILY Bumetanide (Bumetanide), 1 MG PO BID Carbidopa/Levodopa (Sinemet 25MG/100MG), 1 TAB PO BID Carvedilol (Carvedilol), 6.25 MG PO BID Cholecalciferol (Vitamin D 1000 Unit), 1,000 INTER.UNIT PO QPM Lactic Acid (Ammonium Lactate Cream 12%), 1 APPLN TOP BID Levothyroxine Sodium (Synthroid), 50 MCG PO QAM Metronidazole (Flagyl), 500 MG PO TID Multiple Vitamins W/ Minerals (Centrum), 1 TAB PO QPM Pantoprazole (Protonix), 40 MG PO QAM Potassium Chloride (Potassium Chloride Er), 10 MEQ PO QAM Prednisone (Prednisone), 5 MG PO QAM Probiotic Product (Align), 4 MG PO DAILY Sertraline HCl (Sertraline HCl), 25 MG PO DAILY [lidocaine patch], 1 PATCH TD QAM Scheduled PRN Albuterol Inhaler (Ventolin Inhaler), 2 PUFFS INH QID PRN for Shortness of Breath Morphine Sulfate (Morphine Sulfate Ir), 1.5 TABS PO TID PRN for Pain Allergies Coded Allergies: Codeine (Verified Allergy, Mild, 11/09/16) Penicillins (Verified Allergy, Mild, ., 11/09/16) tolerated cefepime Banana (Verified Allergy, Unknown, GI symptoms, 11/09/16) Erythromycin (Verified Allergy, Unknown, ., 11/09/16) Sulfa Antibiotics (Verified Allergy, Unknown, Unknown, 11/09/16) Vancomycin (Verified Allergy, Unknown, ., 11/09/16) Cantaloupe (Verified Adverse Reaction, Unknown, GI SYMPTOMS FROM UNSPECIFIED MELONS, 11/09/16) Physical Exam Vital Signs Date Time Temp Pulse Resp B/P Pulse Ox O2 Delivery O2 Flow Rate FiO2 11/09/16 01:02 77 20 180/89 97 Room Air 11/09/16 00:11 36.8 75 20 96 Room Air Physical Exam GENERAL: Patient is elderly appearing and in no acute distress. Mildly anxious appearing. HEENT: No acute trauma, normocephalic atraumatic, mucous membranes moist, no nasal congestion, no scleral icterus. NECK: No stridor, no adenopathy, no meningismus, trachea is midline. LUNGS: Diffuse crackles, mild dyspnea, mild wheezing. HEART: Regular rate and rhythm. No murmurs, rubs, gallops appreciated. ABDOMEN: Soft, nontender, bowel sounds positive, no masses appreciated, no peritonitis. BACK: No midline tenderness, no CVA tenderness EXTREMITIES: Normal motion all extremities, no cyanosis. 3+ pitting edema bilateral lower legs. Severe arthritic changes of hands. NEUROLOGIC: Alert and oriented, no acute motor or sensory deficits, no focal weakness, cranial nerves grossly intact. SKIN: No rash, no jaundice, no diaphoresis. Frail papery skin. Medical Decision & Procedures ER Provider Diagnostic Interpretation: X ray results are stated below per my interpretation. One View Chest: Mild bilateral lower interstitial fullness. No clear pneumonia, no pneumothorax. Mildly enlarged heart. Laboratory Results 11/09/16 01:23 Red Blood Count 4.11, Mean Corpuscular Volume 93.4, Mean Corpuscular Hemoglobin 30.2, Mean Corpuscular Hemoglobin Concent 32.3, Mean Platelet Volume 9.8, Neutrophils (%) (Auto) 65.8, Lymphocytes (%) (Auto) 17.6, Monocytes (%) (Auto) 10.7, Eosinophils (%) (Auto) 1.7, Basophils (%) (Auto) 0.6, Neutrophils # (Auto ) 3.52, Lymphocytes # (Auto) 0.94, Monocytes # (Auto) 0.57, Eosinophils # (Auto ) 0.09, Basophils # (Auto) 0.03 11/09/16 01:23 Test 11/09/16 01:23 White Blood Count 5.34 K/uL (4.8-10.8) Red Blood Count 4.11 M/uL (4.2-5.4) Hemoglobin 12.4 g/dL (12.0-16.0) Hematocrit 38.4 % (37-47) Mean Corpuscular Volume 93.4 fL (80-100) Mean Corpuscular Hemoglobin 30.2 pg (25-34) Mean Corpuscular Hemoglobin Concent 32.3 g/dl (32-36) Platelet Count 196 K/uL (130-400) Mean Platelet Volume 9.8 fL (7.4-10.4) Neutrophils (%) (Auto) 65.8 % Lymphocytes (%) (Auto) 17.6 % Monocytes (%) (Auto) 10.7 % Eosinophils (%) (Auto) 1.7 % Basophils (%) (Auto) 0.6 % Neutrophils # (Auto) 3.52 K/uL (1.4-6.5) Lymphocytes # (Auto) 0.94 K/uL (1.2-3.4) Monocytes # (Auto) 0.57 K/uL (0.11-0.59) Eosinophils # (Auto) 0.09 K/uL (0-0.5) Basophils # (Auto) 0.03 K/uL (0-0.2) RDW Standard Deviation 44.8 fL (36.4-46.3) RDW Coefficient of Variation 13.2 % (11.5-14.5) Immature Granulocyte % (Auto) 3.6 % Immature Granulocyte # (Auto) 0.19 K/uL (0.00-0.02) Anion Gap 10.0 mmol/L (3-11) Est Creatinine Clear Calc Drug Dose 23.8 ml/min Estimated GFR () 47.4 Estimated GFR (Non- 40.9 BUN/Creatinine Ratio 11.4 (10-20) Calcium Level 9.1 mg/dl (8.5-10.1) Magnesium Level 2.4 mg/dl (1.8-2.4) Pro-B-Type Natriuretic Peptide 2100 pg/ml (0-1800) Chemistry Specimen Hemolysis Laboratory results as reviewed by me. ECG Indication: vomiting Rate (beats per minute): 76 Rhythm: normal sinus Findings: no acute ischemic change, no ectopy ED Course 0027: The patient was evaluated in room B2. A complete history and physical exam was performed. 0204: The patient says she is too weak to go home, and that she would come back tomorrow. 0215: Discussed the case with Dr. Mcclure [facility]. The patient will be evaluated. Medical Decision Differential: Sepsis, Infectious (UTI/Pneumonia/Meningitis/etc), Metabolic/ Electrolyte Abnormality, Cardiac, Hepatic, Endocrine, Toxicologic, Neurologic, amongst other pathologies entertained. 86 yr old female with chronic generalized weakness, long history of lung disease and recent admission for cdiff infection. Unable to to tolerate much PO intake over the last few days and with worsening breathing. She appears to have fluid overload though CXR without pulm edema and no hypoxia on monitor. Does have some diffuse wheezing and likely underlying bronchitis of which she was on zpack last few days. No fevers, not septic and otherwise in no distress. Is likely somewhat fluid overloaded but unclear if this is more extravascular and actually a bit intravascular depleted. Family and patient make clear they are unable to have her at home in current condition, thus will go ahead and bring in as not yet clear for rehab facility. Consults Time Called: 209 Consulting Physician[facility] Return[facility] Call: [phone]: Discussed the case with Dr. Mcclure [facility]. The patient will be evaluated. Impression Primary Impression: General weakness Additional Impressions: Bronchitis, Failure to thrive, Fluid overload Scribe Attestation The scribe's documentation has been prepared under my direction and personally reviewed by me in its entirety. I confirm that the note above accurately reflects all work, treatment, procedures, and medical decision making performed by me. Departure Information Dispostion Being Evaluated By Hospitalist Referrals Mil Durand M.D. (PCP) Patient Instructions A Signature Page, My [facility]
--- NOTE | 2016-11-09 07:05 | DIAGNOSTIC IMAGING REPORT ---
CT OF THE CHEST WITHOUT IV CONTRAST CLINICAL HISTORY: Shortness of breath. ABNORMAL PHYSICAL EXAMINATION WITH NO BREATH SOUNDS LEFT LOWER LOBE. COMPARISON STUDY: 02/24/2016 CT DOSE: 196.50 mGy.cm TECHNIQUE: CT of the thorax was performed from the thoracic inlet to the lung bases. Images are reviewed in the axial, sagittal, and coronal planes. IV contrast was not administered for this examination. FINDINGS: Thyroid: Imaged portions of the thyroid gland are normal in appearance. Thoracic aorta: The thoracic aorta is normal in course and caliber, noting standard 3 vessel arch anatomy. Heart: There are coronary artery calcifications present. Lungs and pleural spaces: There is a trace right pleural effusion. There is bibasal atelectasis. There is no lobar consolidation. There are calcified granulomas within the right lower lobe. There is a 4 x 2 mm right upper lobe pulmonary nodule as visualized in image #[id number]. There is minor bronchial wall thickening with several areas of mucous plugging within left lower lobe Mediastinum: There is no mediastinal lymphadenopathy. Jenelle: Clear. Axilla: Clear. Upper abdomen: There are scattered calcified splenic and hepatic granulomas. The gallbladder surgically absent. There is a small hiatal hernia. Skeletal structures: There are no lytic or blastic osseous lesions. IMPRESSION: 1. Trace right pleural effusion 2. Bibasilar atelectasis 3. Mild bronchial wall thickening with several areas of mucous plugging within the left lower lobe. Electronically signed by: Praneeth Alexandre M.D. 11/09/2016 7:03 AM
[2016-11-09] MEDS: ALBUT/IPRATROP 3MG/0.5MG NEB 3 ML VIAL INH SCH ×3 (07:21→19:22)
[2016-11-09] MEDS: METOCLOPRAMIDE HCL INJ 5 MG/ML 2 ML VIAL IV SCH ×3 (07:57→19:19)
[2016-11-09] MEDS: PANTOprazole SOD 40 MG TAB PO SCH (07:58)
[2016-11-09] MEDS: CARBIDOPA/LEVODOPA 25/100MG TAB PO SCH ×2 (07:58→19:07)
[2016-11-09] MEDS: LACTOBACILLUS ACIDOPHILUS (FLORANEX) TAB PO SCH (07:58)
[2016-11-09] MEDS: BUMETANIDE 1 MG TAB PO SCH ×2 (07:59→18:10)
[2016-11-09] MEDS: SERTRALINE HCL 50 MG TAB PO SCH (07:59)
[2016-11-09] MEDS: CARVEDILOL 6.25 MG TAB PO SCH ×2 (07:59→19:15)
[2016-11-09] MEDS: ASPIRIN 81 MG ECTAB PO SCH (08:00)
[2016-11-09] MEDS: POTASSIUM CHLORIDE 10 MEQ TABCR PO SCH (08:00)
[2016-11-09] MEDS: VANCOMYCIN HCL 125 MG/2.5ML SOLN PO SCH ×4 (08:01→19:16)
[2016-11-09] MEDS: RASPBERRY SYRUP 5 ML UDP PO SCH ×4 (08:01→19:15)
--- NOTE | 2016-11-09 17:39 | Progress Note ---
Progress Note Patient admitted this date in early am. I evaluated the patient and did an exam. Pulmonology consulted. She is tolerating the po vanco without nausea. His note reports that the Vanco allegry listed on the chart is erroneous.
--- NOTE | 2016-11-09 18:01 | Pulmonary Consultation ---
History General Date of Service: Nov 09, 2016. Stated Complaint: Dyspnea, Nausea And Vomiting, Short of Breath HPI The patient is a 86 year old female who presents to [facility] with complaints of Dyspnea, Nausea And Vomiting. The patient's primary care provider is Mil Durand M.D.. 86y/o female admitted for nausea, vomiting and shortness of breath. She was recently d/c after an admission from 11/04/16-11/06/16 with KOREY, C-diff ( metronidazole), acute bronchitis (Z-pac) and chronic back pain. She notes increased SOB with associated dry cough and bilateral lower extremity swelling. She has states fatigue with GUERRERO over the last 1-2 weeks with the recent ilnesses. She denies productive cough, pleurisy, CAD chest pain, fever, chills , weight lose or hemoptysis. She denies a diagnosis of COPD but does note a long history of asthma previously treated in [place] with imuno-therapy. She has noted increased asthma flairs since moving to [place] 3 years prior. Microbiology: 1) Rt leg () MRSA, Enterococcus Faecalis, Alcaligenes Species 2) Lt Leg 07/01/14() MSSA 3) Rt Leg (01/19/15) MSSA 4) Urine (10/11/16) girard- sensitive ABG (05/04/16) 7.46/35/87/25 RA All: 1) Sulfa 2) PNC 3) Codiene 4) Vancomycin 5) Erythromycin Social: Lifelong non-smoker Second hand smoke exposure Historian: patient, EMS Review of Systems Constitutional: reports: malaise, weakness Eyes: reports: no symptoms ENT: reports: no symptoms Cardiovascular: reports: no symptoms Respiratory: reports: as stated in HPI Gastrointestinal: reports: abdominal pain, diarrhea Genitourinary - Female: reports: no symptoms Musculoskeletal: reports: arthralgias, myalgias Integumentary: reports: no symptoms Neurologic: reports: no symptoms Psychiatric: reports: no symptoms Endocrine: no symptoms Hematologic / Lymphatic: no symptoms Allergic / Immunologic: no symptoms Past Medical History Past Medical History: 1) Anxiety 2) Hypothyroidism 3) Osteoporosis 4) Arthritis 5) CKD 6) Asthma 7) PVD 8) History of pelvic mass 9) GERD 10) CAD 11) Parkinson (Sinemet) 12) Chronic pain/Narcotic dependence Past Surgical History: 1) Cholecystectomy 2) Appendectomy 3) Cataract surgery 4) Hysterectomy 5) Tonsillectomy 6) Cataract removal Family History FH: heart disease Hypertension Kidney disease Kidney stones Social History Hx Tobacco Use In Past Year?: No Smoking Status: Never Smoker Marital status: Housing status: lives with family Occupational Status: retired Immunizations History of Influenza Vaccine: No History of Tetanus Vaccine?: Yes Tetanus Immunization Date: Apr 06, 2006 History of Pneumococcal: No History of Hepatitis B Vaccine: Unknown History of MDRO History of MDRO: Yes Type of MDRO: MRSA Allergies Coded Allergies: Codeine (Verified Allergy, Mild, 11/09/16) Penicillins (Verified Allergy, Mild, ., 11/09/16) tolerated cefepime Banana (Verified Allergy, Unknown, GI symptoms, 11/09/16) Erythromycin (Verified Allergy, Unknown, ., 11/09/16) Sulfa Antibiotics (Verified Allergy, Unknown, Unknown, 11/09/16) Vancomycin (Verified Allergy, Unknown, ., 11/09/16) Cantaloupe (Verified Adverse Reaction, Unknown, GI SYMPTOMS FROM UNSPECIFIED MELONS, 11/09/16) Current Medications Reported Home Medications Medications Dose Route/Sig Max Daily Dose Days Date Category Dose Instructions Flagyl (Metronidazole) 500 Mg Tab 500 Mg PO TID 11/09/16 Reported [lidocaine patch] 1 Patch TD QAM 11/09/16 Reported pt to remove patch at hs Zithromax (Azithromycin) 250 Mg Tab 250 Mg PO DAILY 11/09/16 Reported Ammonium Lactate Cream 12% (Lactic Acid) Unknown Strength Cr 1 Appln TOP BID 11/04/16 Reported apply to dry skin to arms,and back Sertraline HCl 25 Mg Tab 25 Mg PO DAILY 11/04/16 Reported Bumetanide 1 Mg Tab 1 Mg PO BID 11/04/16 Reported Sinemet 25MG/100MG (Carbidopa/Levodopa) Tab 1 Tab PO BID 03/03/16 Reported Morphine Sulfate Ir (Morphine Sulfate) 15 Mg Tab 1.5 Tabs PO TID PRN 02/26/16 Reported Carvedilol 6.25 Mg Tab 6.25 Mg PO BID 02/26/16 Reported Align (Probiotic Product) 4 Mg Cap 4 Mg PO DAILY 01/18/16 Reported Potassium Chloride Er (Potassium Chloride) 10 Meq Tab 10 Meq PO QAM 12/29/15 Reported Vitamin D 1000 Unit (Cholecalciferol) 1,000 Unit Cap 1,000 Inter.unit PO QPM 12/29/15 Reported Synthroid (Levothyroxine Sodium) 50 Mcg Tab 50 Mcg PO QAM 12/02/15 Reported Protonix (Pantoprazole Sodium) 40 Mg Tab 40 Mg PO QAM 12/02/15 Reported Prednisone 5 Mg Tab 5 Mg PO QAM 12/02/15 Reported Centrum (Multiple Vitamins W/ Minerals) 1 Tab Tab 1 Tab PO QPM 12/02/15 Reported Aspirin Ec (Aspirin) 81 Mg Tab 81 Mg PO QAM 12/02/15 Reported Ventolin Inhaler (Albuterol) Aers 2 Puffs INH QID PRN 02/16/14 Reported Physical Physical Exam Vital Signs: Date Time Temp Pulse Resp B/P Pulse Ox O2 Delivery O2 Flow Rate FiO2 11/09/16 16:00 Room Air 11/09/16 15:55 37.3 105 20 139/70 96 Room Air 11/09/16 14:12 106 18 97 Room Air 11/09/16 12:00 Room Air 11/09/16 10:49 88 22 146/75 98 Room Air 11/09/16 08:37 36.8 100 24 161/90 95 Room Air 11/09/16 08:00 Room Air 11/09/16 07:21 99 18 95 Room Air 11/09/16 05:12 36.9 91 19 155/86 94 Room Air 11/09/16 03:06 Room Air 11/09/16 03:02 84 20 156/84 94 11/09/16 01:02 77 20 180/89 97 Room Air 11/09/16 00:11 36.8 75 20 96 Room Air General Appearance: WELL-APPEARING, NO APPARENT DISTRESS Head: NORMOCEPHALIC, ATRAUMATIC Eyes: PERRLA, NO DISCHARGE, EOMI ENT: NORMAL EAR EXAM, NORMAL NASAL EXAM, NORMAL MOUTH EXAM, NORMAL THROAT EXAM Neck: NORMAL RANGE OF MOTION, NO TENDERNESS, TRACHEA MIDLINE Respiratory: other (minimal expiratory wheezing mostly at the basis bilaterly ) Cardiovasular: REGULAR RATE/RHYTHM, NORMAL S1S2 Abdomen: NON TENDER, NORMAL BOWEL SOUNDS, hernia Genitourinary - Female: EXTERNAL GENITALIA NORMAL Back: NO MIDLINE TENDERNESS, other (mild kyphosis) Upper Extremities: NO EDEMA, other (thin skin with bilateral ecyhmosis/ bilateral subluxation and nodules of the DIPs) Edema: Bilateral LE (1+) Pulses: carotid (R) (2+), carotid (L) (2+), dorsalis pedis (R) (1+), dorsalis pedis (L) (1+) Neuro: ALERT, ORIENTED x 3, NORMAL MOTOR EXAM, NORMAL SENSATION Reflexes: biceps (R) (1+), bicpes (L) (1+) Babinski Testing: right (downgoing), left (downgoing) Psychiatric: NORMAL AFFECT, NO SUICIDAL IDEATION Diagnostics Labs Results Past 24 Hours Test 11/09/16 01:23 11/09/16 06:25 Range/Units White Blood Count 5.34 4.8-10.8 K/uL Red Blood Count 4.11 4.2-5.4 M/uL Hemoglobin 12.4 12.0-16.0 g/dL Hematocrit 38.4 37-47 % Mean Corpuscular Volume 93.4 80-100 fL Mean Corpuscular Hemoglobin 30.2 25-34 pg Mean Corpuscular Hemoglobin Concent 32.3 32-36 g/dl Platelet Count 196 130-400 K/uL Mean Platelet Volume 9.8 7.4-10.4 fL Neutrophils (%) (Auto) 65.8 % Lymphocytes (%) (Auto) 17.6 % Monocytes (%) (Auto) 10.7 % Eosinophils (%) (Auto) 1.7 % Basophils (%) (Auto) 0.6 % Neutrophils # (Auto) 3.52 1.4-6.5 K/uL Lymphocytes # (Auto) 0.94 1.2-3.4 K/uL Monocytes # (Auto) 0.57 0.11-0.59 K/uL Eosinophils # (Auto) 0.09 0-0.5 K/uL Basophils # (Auto) 0.03 0-0.2 K/uL RDW Standard Deviation 44.8 36.4-46.3 fL RDW Coefficient of Variation 13.2 11.5-14.5 % Immature Granulocyte % (Auto) 3.6 % Immature Granulocyte # (Auto) 0.19 0.00-0.02 K/uL Sodium Level 144 136-145 mmol/L Potassium Level 4.8 3.5-5.1 mmol/L Chloride Level 109 98-107 mmol/L Carbon Dioxide Level 25 21-32 mmol/L Anion Gap 10.0 3-11 mmol/L Blood Urea Nitrogen 14 7-18 mg/dl Creatinine 1.20 0.60-1.20 mg/dl Est Creatinine Clear Calc Drug Dose 23.8 ml/min Estimated GFR () 47.4 Estimated GFR (Non- 40.9 BUN/Creatinine Ratio 11.4 10-20 Random Glucose 91 70-99 mg/dl Calcium Level 9.1 8.5-10.1 mg/dl Magnesium Level 2.4 1.8-2.4 mg/dl Troponin I 0.023 0.026 0-0.045 ng/ml Pro-B-Type Natriuretic Peptide 2100 0-1800 pg/ml Chemistry Specimen Hemolysis Diagnostic Radiology CT thorax non-contrast: bilateral pleural thickening long the posterior greatest at the bases, linear atelectasis in the RLL and lingual, mild bronchiectasis, calcifications in the spleen and 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 Patient was able to move air with minimal wheezing mostly in the lower lobes L>R consistent with atelectasis seen in CT. Will will change our current steroid dosing to Prednisone 20mg QD with a mauricio over the next 4 days. When able patient should have a PFT to determine baseline lung function. 2) Aspiration: CT and possible Parkinson are relevant for possible aspiration. No sings of itzel aspiration per nursing but we should monitor for signs of silent aspiration 3) Pulmonary Nodule: Calcified with associated splenic calcifications consistent with previous Cocci infection.
[2016-11-09] MEDS: MoRPHine SULFATE IR 15 MG TAB (IMMEDIATE RELEASE) PO PRN (19:14)
[2016-11-10 00:29] VITALS: BP 152/76; PULSE 93; TEMP 36.9; O2SAT 94
[2016-11-10] MEDS: METOCLOPRAMIDE HCL INJ 5 MG/ML 2 ML VIAL IV SCH (03:12)
[2016-11-10] MEDS: LEVOTHYROXINE 50 MCG TAB PO SCH (06:42)
[2016-11-10] MEDS: HEPARIN SOD 5000 UNIT/0.5 ML CARP SQ SCH ×3 (06:49→20:47)
[2016-11-10 07:35] VITALS: BP 143/82; PULSE 94; TEMP 36.8; O2SAT 95
[2016-11-10 07:36] VITALS: PULSE 104; O2SAT 95
[2016-11-10] MEDS: ALBUT/IPRATROP 3MG/0.5MG NEB 3 ML VIAL INH SCH (07:36)
[2016-11-10 08:00] VITALS: O2SAT 95
[2016-11-10] MEDS: VANCOMYCIN HCL 125 MG/2.5ML SOLN PO SCH ×4 (09:14→20:39)
[2016-11-10] MEDS: RASPBERRY SYRUP 5 ML UDP PO SCH ×4 (09:14→20:39)
[2016-11-10] MEDS: CARBIDOPA/LEVODOPA 25/100MG TAB PO SCH ×2 (09:16→20:41)
[2016-11-10] MEDS: POTASSIUM CHLORIDE 10 MEQ TABCR PO SCH (09:16)
[2016-11-10] MEDS: PANTOprazole SOD 40 MG TAB PO SCH (09:16)
[2016-11-10] MEDS: BUMETANIDE 1 MG TAB PO SCH ×2 (09:16→18:44)
[2016-11-10] MEDS: ASPIRIN 81 MG ECTAB PO SCH (09:17)
[2016-11-10] MEDS: CARVEDILOL 6.25 MG TAB PO SCH ×2 (09:17→20:41)
[2016-11-10] MEDS: LACTOBACILLUS ACIDOPHILUS (FLORANEX) TAB PO SCH (09:18)
[2016-11-10] MEDS: SERTRALINE HCL 50 MG TAB PO SCH (09:18)
--- NOTE | 2016-11-10 09:18 | PULMONARY PROGRESS NOTE ---
DATE: 11/10/2016 TIME: 8:55 a.m. SUBJECTIVE: The patient states she is feeling a little better. She has some cough. She is not bringing up any mucus. She states the cough feels high up. She does not notice any wheezing. Her stomach feels better. She is not as nauseated. She remains weak. OBJECTIVE: GENERAL: The patient was pleasant. She was cooperative, alert and oriented. She looked weak. Temperature 36.8. ENT: Unremarkable. VITAL SIGNS: Heart rate mildly elevated at 104 beats per minute. The rhythm was regular. Respiratory rate 20 breaths per minute. Blood pressure 143/82. Oxygen saturation 95% on room air. LUNGS: Auscultation of the lung hua revealed mild wheezing on expiration bilaterally. This was heard both anteriorly and posteriorly. ABDOMEN: Fairly soft. Bowel sounds were present. EXTREMITIES: Show areas where she has fluid under the skin in the right lower extremity, especially. I did not see any active oozing. Part of the lower left leg is wrapped. The legs are edematous. CBC today is pending. Chemistry today is also pending. IMPRESSIONS: 1. Asthma. 2. Rule out aspiration. 3. Small nodule which is calcified and likely benign. Dr. Park did see the patient yesterday. His note indicated he was going to change her from methylprednisolone to prednisone. His noted indicated he would start prednisone at 20 mg per day. However, the order has come out as 10. We will that make adjustment. I think she could use a little more steroid than 10 mg at present. She was on a much higher dose that was tapered quickly. She is still having some wheezing. She does continue to get the DuoNeb treatments every 6 hours and I would continue that.
[2016-11-10 09:30] LABS: BASO % 0.1 %; BASO ABS # 0.01 K/uL (0-0.2); COMPLETE YES; EOS % 0.1 %; HEMATOCRIT 35.3 % (37-47); IG% 1.8 %; LYMPH % 13.8 %; MEAN CELL VOLUME 92.7 fL (80-100); MEAN CORPUSCULAR HEMOGLOBIN 30.4 pg (25-34); MEAN CORPUSCULAR HGB CONC 32.9 g/dl (32-36); MEAN PLATELET VOLUME 9.7 fL (7.4-10.4); MONO % 12.3 %; NEUT % 71.9 %; PLATELET COUNT 241 K/uL (130-400); RED BLOOD COUNT 3.81 M/uL (4.2-5.4); WHITE BLOOD COUNT 7.98 K/uL (4.8-10.8)
[2016-11-10 10:19] LABS: BUN/CREATININE RATIO 10.3 (10-20); CALCIUM 8.5 mg/dl (8.5-10.1); CREATININE 1.2 mg/dl (0.60-1.20); POTASSIUM 3.9 mmol/L (3.5-5.1)
[2016-11-10] MEDS ORDERED: CHOLESTYRAMINE LIGHT 4 GM PKT PO ONE (11:00)
--- NOTE | 2016-11-10 11:25 | Hospitalist Progress Note ---
Hospitalist Progress Note Date of Service Nov 10, 2016. Subjective Pt evaluation today including: conversation w/ patient, physical exam, chart review, lab review, review of studies, review of inpatient medication list PO Intake: yesica clears Feeling much better. Yesica clears and no more N/V, still some loose stools, no abd pain. Breathing is better. Constitutional: No fever Eyes: No problem reported ENT: No problem reported Respiratory: + cough Cardiovascular: No chest pain Abdomen: + diarrhea, No nausea, No pain, No vomiting All Other Systems: Reviewed and Negative Objective Vital Signs Date Time Temp Pulse Resp B/P Pulse Ox O2 Delivery O2 Flow Rate FiO2 11/10/16 07:36 104 18 95 Room Air 11/10/16 07:35 36.8 94 18 143/82 95 Room Air 11/10/16 00:29 36.9 93 18 152/76 94 Room Air 11/10/16 00:00 Room Air 11/09/16 19:26 99 18 96 Room Air 11/09/16 18:40 36.8 89 19 133/76 96 Room Air 11/09/16 16:00 Room Air 11/09/16 15:55 37.3 105 20 139/70 96 Room Air 11/09/16 14:12 106 18 97 Room Air 11/09/16 12:00 Room Air 11/09/16 10:49 88 22 146/75 98 Room Air Physical Exam General Appearance: WD/WN, no apparent distress Eyes: normal inspection, sclerae normal Neck: trachea midline Respiratory/Chest: no respiratory distress, no accessory muscle use, + wheezing (exp wheezes with coughing but otherwise fairly clear) Cardiovascular: regular rate, rhythm, no murmur, + pertinent finding (1-2= pitting edema legs bilat with very thin skin with subcutaneous clear fluid blisters, left anterior tibia with 1cm superficial healing ulcer) Abdomen: normal bowel sounds, non tender, soft, + hernia (umbilical and ventral hernia reducible and nontender) Extremities: non-tender, no calf tenderness Neurologic/Psychiatric: alert, normal mood/affect, oriented x 3 Skin: normal color, warm/dry, no rash Laboratory Results Last 24 Hours Test 11/10/16 09:03 White Blood Count 7.98 K/uL Red Blood Count 3.81 M/uL Hemoglobin 11.6 g/dL Hematocrit 35.3 % Mean Corpuscular Volume 92.7 fL Mean Corpuscular Hemoglobin 30.4 pg Mean Corpuscular Hemoglobin Concent 32.9 g/dl Platelet Count 241 K/uL Mean Platelet Volume 9.7 fL Neutrophils (%) (Auto) 71.9 % Lymphocytes (%) (Auto) 13.8 % Monocytes (%) (Auto) 12.3 % Eosinophils (%) (Auto) 0.1 % Basophils (%) (Auto) 0.1 % Neutrophils # (Auto) 5.74 K/uL Lymphocytes # (Auto) 1.10 K/uL Monocytes # (Auto) 0.98 K/uL Eosinophils # (Auto) 0.01 K/uL Basophils # (Auto) 0.01 K/uL RDW Standard Deviation 44.4 fL RDW Coefficient of Variation 13.3 % Immature Granulocyte % (Auto) 1.8 % Immature Granulocyte # (Auto) 0.14 K/uL Sodium Level 145 mmol/L Potassium Level 3.9 mmol/L Chloride Level 108 mmol/L Carbon Dioxide Level 27 mmol/L Anion Gap 10.0 mmol/L Blood Urea Nitrogen 12 mg/dl Creatinine 1.20 mg/dl Est Creatinine Clear Calc Drug Dose 24.0 ml/min Estimated GFR () 47.4 Estimated GFR (Non- 40.9 BUN/Creatinine Ratio 10.3 Random Glucose 87 mg/dl Calcium Level 8.5 mg/dl Magnesium Level 2.0 mg/dl Troponin I 0.030 ng/ml Assessment and Plan 86 y/o F w/Hx 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 She was recently admitted with N/V and diarrhea and diagnosed with C- diff. She has also been complaining of increasing N/V since discharge on 11/06, SOB, LE edema and a productive cough with wheezing. Per her daughters she had been complaining of all the above symptoms for a few weeks and prior to her recent admission however her symptoms have now worsened. 1) SOB, cough/wheezing, Acute bronchitis, Asthma exacerbation - Improved clinically. She was D/Cd recently with a course of Zithromax and uses albuterol PRN -CT chest showed no PNA but did show mucus plugging and atelectasis, small pleural effusion. Considering her persistent nausea and vomiting, could be aspiration? CT Chest: 1. Trace right pleural effusion 2. Bibasilar atelectasis 3. Mild bronchial wall thickening with several areas of mucous plugging within the left lower lobe. -A swallow eval will be requested. -We will treat for a COPD exacerbation due to her wheezing and persistent SOB with prednisone burst and return to home dose of 5mg daily. She already received 5 day course of azithro recently -nebs -Pulm consult appreciated 2) Nausea and vomiting - intermittent and present for several weeks, most likely initially from C. diff infection and then worsened after last admission due to po Flagyl adverse SE. Significantly improved now on po Vanco -adv diet to full liquids today -antiemetics prn, stop reglan ATC 3) C - diff colitis, diarrhea- her N/V may be worsened by PO Flagyl - we will change to PO vanc which was previously effective per pt - above allergy info is erroneous -finish 14 day course total of abx, including 5 days already received of flagyl -Po vanco 125mg qid through last dose 11/19/16 -start cholestyramine now 4) CAD - marginal troponin increase without additional evidence of ACS - trop neg x 3, cont ASA, monitor on telemetry -continue Coreg, ASA 5) LE edema, left anterior tibia superficial ulcer -chronic and stable for years , very thin skin from prednisone -continue bumex -wound care -check ECHO as not done in a few years and had low normal EF previously 6) Chronic pain - will remain on prescribed narcotics and IV for breakthrough if she cannot tolerate PO 7) Hypothyroidism-stable, continue synthroid 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
[2016-11-10] MEDS ORDERED: METOCLOPRAMIDE HCL INJ 5 MG/ML 2 ML VIAL IV PRN (14:30)
[2016-11-10 15:59] VITALS: BP 106/84; PULSE 95; TEMP 36.8; O2SAT 93
[2016-11-10] MEDS: MoRPHine SULFATE IR 15 MG TAB (IMMEDIATE RELEASE) PO PRN (18:42)
[2016-11-10] MEDS: IPRATROPIUM BROMIDE/ALBUTEROL respimat INH INH SCH (18:45)
[2016-11-10] MEDS: CHOLESTYRAMINE LIGHT 4 GM PKT PO SCH (20:40)
[2016-11-11 00:30] VITALS: BP 142/70; PULSE 95; TEMP 36.5; O2SAT 95
[2016-11-11 02:40] VITALS: BP 182/95; PULSE 108
[2016-11-11] MEDS: MoRPHine SULFATE IR 15 MG TAB (IMMEDIATE RELEASE) PO PRN (03:52)
[2016-11-11] MEDS ORDERED: ENALAPRILAT IV 1.25 MG in DEXTROSE 5% 25ML 25 ML IV STA (04:05)
[2016-11-11 05:30] VITALS: BP 150/66; PULSE 87
[2016-11-11] MEDS: IPRATROPIUM BROMIDE/ALBUTEROL respimat INH INH SCH ×3 (05:31→12:05)
[2016-11-11] MEDS: LEVOTHYROXINE 50 MCG TAB PO SCH (05:34)
[2016-11-11] MEDS: HEPARIN SOD 5000 UNIT/0.5 ML CARP SQ SCH ×2 (05:35→13:34)
[2016-11-11 06:03] LABS: BASO % 0.2 %; BASO ABS # 0.01 K/uL (0-0.2); COMPLETE YES; HEMATOCRIT 36.1 % (37-47); LYMPH % 14.5 %; LYMPH ABS # 0.96 K/uL (1.2-3.4); MEAN CELL VOLUME 93.8 fL (80-100); MEAN CORPUSCULAR HEMOGLOBIN 30.4 pg (25-34); MEAN CORPUSCULAR HGB CONC 32.4 g/dl (32-36); MONO % 12.7 %; NEUT % 70.6 %; PLATELET COUNT 253 K/uL (130-400); RED BLOOD COUNT 3.85 M/uL (4.2-5.4)
[2016-11-11 06:29] LABS: BUN/CREATININE RATIO 11.5 (10-20); CALCIUM 8.6 mg/dl (8.5-10.1); CREATININE 1.3 mg/dl (0.60-1.20); MAGNESIUM 1.8 mg/dl (1.8-2.4)
[2016-11-11] MEDS ORDERED: MAGNESIUM SULFATE 1GM / D5W 1 GM in PREMIXED IN D5W 100 ML IV ONE (07:30)
[2016-11-11] MEDS: VANCOMYCIN HCL 125 MG/2.5ML SOLN PO SCH ×3 (08:06→16:41)
[2016-11-11] MEDS: RASPBERRY SYRUP 5 ML UDP PO SCH ×3 (08:06→16:41)
[2016-11-11] MEDS: CARVEDILOL 6.25 MG TAB PO SCH (08:07)
[2016-11-11] MEDS: ASPIRIN 81 MG ECTAB PO SCH (08:08)
[2016-11-11] MEDS: BUMETANIDE 1 MG TAB PO SCH (08:08)
[2016-11-11] MEDS: POTASSIUM CHLORIDE 10 MEQ TABCR PO SCH (08:09)
[2016-11-11] MEDS: LACTOBACILLUS ACIDOPHILUS (FLORANEX) TAB PO SCH (08:10)
[2016-11-11] MEDS: PANTOprazole SOD 40 MG TAB PO SCH (08:10)
[2016-11-11] MEDS: CARBIDOPA/LEVODOPA 25/100MG TAB PO SCH (08:10)
[2016-11-11] MEDS: SERTRALINE HCL 50 MG TAB PO SCH (08:10)
[2016-11-11 08:12] VITALS: BP 144/78; PULSE 86; TEMP 36.6; O2SAT 93
[2016-11-11] MEDS: CHOLESTYRAMINE LIGHT 4 GM PKT PO SCH (09:30)
[2016-11-11] MEDS ORDERED: CARVEDILOL 3.125 MG TAB PO ONE (11:00)
[2016-11-11] MEDS ORDERED: IPRA1AER2 INH (12:00)
[2016-11-11] MEDS ORDERED: QSTP PO (12:00)
[2016-11-11] MEDS ORDERED: CRG625 PO (12:00)
[2016-11-11] MEDS ORDERED: VNCS125 PO (12:00)
[2016-11-11] MEDS ORDERED: PRED10TA PO (12:00)
--- NOTE | 2016-11-11 12:32 | Discharge Instructions ---
Discharge Instructions Admission Reason for Admission: Dyspnea, Nausea And Vomiting (Marilou Mcgrath PA-C) Discharge Discharge Diagnosis / Problem: Acute Bronchitis/Asthma Exacerbation (Marilou Mcgrath PA-C) Discharge Diagnosis / Problem: Nausea/vomiting secondary to metronidazole (Mignon Smith MD) Discharge Goals Goal(s): Decrease discomfort, Improve function, Learn about illness, Diagnostic testing, Therapeutic intervention, Prevent Disease Progression (Marilou Mcgrath PA-C) Activity Recommendations Activity Limitations: resume your previous activity . (Marilou Mcgrath PA-C) Instructions / Follow-Up Instructions / Follow-Up Asthma: -Please continue to use your Albuterol inhaler 2 puffs every 4 hours as needed for shortness of breath/wheezing. -You have been given a script for a new inhaler called Combivent. Please do 1 puff of Combivent every 6 hours. -Dr. Park has placed you on a 4 day mauricio of Prednisone. Please take 20 mg of Prednisone on 11/12, then 10 mg of Prednisone on 11/13 and 11/14, then resume your original dose of 5 mg by mouth daily. -Pulmonary has recommended you get pulmonary function test once you feel better. Please call Dr. Park's office at [phone] to setup an appointment in the near future. With your chronic history of asthma, it is also good to establish routine follow-ups with pulmonary. Nausea and vomiting: -Please advance your diet slowly and as tolerated -Drink plenty of fluids to keep well hydrated. Enough to keep your urine light yellow. C. diff: -We have switched your Flagyl medication to Vancomycin. Please take Vancomycin 125 mg oral solution four times a day until prescription is completed. Your prescription will be completed on November 19. THIS MEDICATION HAS BEEN SENT TO THE [facility], LOCATED ON [address] [place] [address] due to cost. -You have been prescribed Questran powder to take twice day. This medication will be completed on November 19 as well. This medication is to help with diarrhea. You have been receiving it here, with improvement in your symptoms. High blood pressure: -Your blood pressure has remain persistently high during your hospital stay. Your Carvedilol has been increased to 9.375 mg by mouth twice per day. Chronic kidney disease: -You need to reschedule a follow-up appointment with Dr. Maryellen INIGUEZ as you missed your follow-up this week. Pelvic Mass: -We have discussed your follow-up with gynecology for which you stated you have discontinued to follow-up because your feel it is unnecessary. It is HIGHLY recommended you keep follow-up with Gynecology, unless otherwise recommended by them. You may resume all other regular home medications as prescribed to you. Please continue with home physical therapy. You need to follow-up with your PCP within 5-7 days. Please follow-up/keep all of your subspecialty appointments. (Marilou Mcgrath PA-C) Current Hospital Diet Patient's current hospital diet: AHA Diet (Heart Healthy), Low Fiber Diet (Marilou Mcgrath PA-C) Discharge Diet Recommended Diet: AHA Diet (Heart Healthy), Low Fiber Diet (Marilou cMgrath PA-C) Procedures Procedures Performed: 1. Chest x-ray 2. Chest CT (Marilou Mcgrath PA-C) Pending Studies Studies pending at discharge: no (Marilou Mcgrath PA-C) Laboratory Results Last 24 Hours Test 11/11/16 05:25 White Blood Count 6.60 K/uL Red Blood Count 3.85 M/uL Hemoglobin 11.7 g/dL Hematocrit 36.1 % Mean Corpuscular Volume 93.8 fL Mean Corpuscular Hemoglobin 30.4 pg Mean Corpuscular Hemoglobin Concent 32.4 g/dl Platelet Count 253 K/uL Mean Platelet Volume 10.0 fL Neutrophils (%) (Auto) 70.6 % Lymphocytes (%) (Auto) 14.5 % Monocytes (%) (Auto) 12.7 % Eosinophils (%) (Auto) 0.0 % Basophils (%) (Auto) 0.2 % Neutrophils # (Auto) 4.66 K/uL Lymphocytes # (Auto) 0.96 K/uL Monocytes # (Auto) 0.84 K/uL Eosinophils # (Auto) 0.00 K/uL Basophils # (Auto) 0.01 K/uL RDW Standard Deviation 46.7 fL RDW Coefficient of Variation 13.7 % Immature Granulocyte % (Auto) 2.0 % Immature Granulocyte # (Auto) 0.13 K/uL Sodium Level 142 mmol/L Potassium Level 4.0 mmol/L Chloride Level 106 mmol/L Carbon Dioxide Level 27 mmol/L Anion Gap 9.0 mmol/L Blood Urea Nitrogen 15 mg/dl Creatinine 1.30 mg/dl Est Creatinine Clear Calc Drug Dose 22.1 ml/min Estimated GFR () 43.0 Estimated GFR (Non- 37.1 BUN/Creatinine Ratio 11.5 Random Glucose 89 mg/dl Calcium Level 8.6 mg/dl Magnesium Level 1.8 mg/dl (Marilou Mcgrath .PROC) Medical Emergencies . Who to Call and When: Medical Emergencies: If at any time you feel your situation is an emergency, please call 911 immediately. . (Marilou Mcgrath PA-C) Non-Emergent Contact Non-Emergency issues call your: Primary Care Provider Call Non-Emergent contact if: you have a fever, your pain is unusual for you, your pain is concerning you, you have any medication questions . (Marilou Mcgrath PA-C) . "Provider Documentation" section prepared by Marilou Mcgrath. (Marilou Mcgrath PA-C) VTE Core Measure Inpt VTE Proph given/why not?: Unfractionated heparin SQ (Marilou Mcgrath PA-C)
--- NOTE | 2016-11-11 12:54 | Discharge Summary ---
Discharge Summary Admission Date: Nov 09, 2016 at 02:35 Discharge Date: Nov 11, 2016 Discharge Disposition: Home with services Principal Diagnosis: Nausea/Vomiting Problems/Secondary Diagnoses: 1. C. diff 2. Intolerance to Flagyl 3. Hypertension 4. Asthma Immunizations: Have You Had Influenza Vaccine: No History of Tetanus Vaccine?: Yes Tetanus Immunization Date: Apr 06, 2006 History of Pneumococcal: No History of Hepatitis B Vaccine: Unknown Procedures: CHEST ONE VIEW PORTABLE CLINICAL HISTORY: Shortness of breath. COMPARISON STUDY: Chest radiograph May 04, 2016. FINDINGS: The patient is rotated. No consolidation is identified and there is no evidence of pulmonary edema. Cardiomediastinal silhouette is stable. No pneumothorax or pleural effusion is identified. IMPRESSION: No acute cardiopulmonary findings. Electronically signed by: Frank Velez M.D. 11/09/2016 6:57 AM The status of this report is Signed. Draft = Not yet reviewed or approved by Radiologist. Signed = Reviewed and approved by Radiologist. CT OF THE CHEST WITHOUT IV CONTRAST CLINICAL HISTORY: Shortness of breath. ABNORMAL PHYSICAL EXAMINATION WITH NO BREATH SOUNDS LEFT LOWER LOBE. COMPARISON STUDY: 02/24/2016 CT DOSE: 196.50 mGy.cm TECHNIQUE: CT of the thorax was performed from the thoracic inlet to the lung bases. Images are reviewed in the axial, sagittal, and coronal planes. IV contrast was not administered for this examination. FINDINGS: Thyroid: Imaged portions of the thyroid gland are normal in appearance. Thoracic aorta: The thoracic aorta is normal in course and caliber, noting standard 3 vessel arch anatomy. Heart: There are coronary artery calcifications present. Lungs and pleural spaces: There is a trace right pleural effusion. There is bibasal atelectasis. There is no lobar consolidation. There are calcified granulomas within the right lower lobe. There is a 4 x 2 mm right upper lobe pulmonary nodule as visualized in image #[id number]. There is minor bronchial wall thickening with several areas of mucous plugging within left lower lobe Mediastinum: There is no mediastinal lymphadenopathy. Jenelle: Clear. Axilla: Clear. Upper abdomen: There are scattered calcified splenic and hepatic granulomas. The gallbladder surgically absent. There is a small hiatal hernia. Skeletal structures: There are no lytic or blastic osseous lesions. IMPRESSION: 1. Trace right pleural effusion 2. Bibasilar atelectasis 3. Mild bronchial wall thickening with several areas of mucous plugging within the left lower lobe. Electronically signed by: Praneeth Alexandre M.D. 11/09/2016 7:03 AM The status of this report is Signed. Draft = Not yet reviewed or approved by Radiologist. Signed = Reviewed and approved by Radiologist ECHOCARDIOGRAM Consultations: Pulmonary- Dr. Park and Dr. 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 CAD OA Chronic pain with opioid-dependence History of Left lower extremity cellulitis H/o appendectomy H/o hysterectomy H/o cholecystectomy Anxiety disorder Chronic kidney disease stage III Hypothyroidism Stable pelvic cystic mass Peripheral vascular disease GERD Parkinson disease Procedures: ECHO performed but not read by the time of discharge---> Will need follow up on this by PCP (Mignon Smith MD) Medication Reconciliation New Medications: Prednisone (Prednisone) 10 Mg Tab 10 MG PO UD for 3 Days, #4 TAB Take 20 mg by mouth on 11/12, then take 10 mg by mouth on 11/13 and 11/14 Carvedilol (Carvedilol) 6.25 Mg Tab 9.375 MG PO BID for 30 Days, TAB Cholestyramine (Cholestyramine Light) 4 Gm Pack 4 GM PO BID@10,22 for 9 Days, #18 DOSE Ipratropium-Albuterol (Combivent Respimat) 1 Aer Aer 1 PUFFS INH Q6, #1 INHALER Vancomycin HCl (Vancomycin HCl) 125 Mg/2.5 Ml Susp 125 MG PO QID for 9 Days, #34 DOSE Continued Medications: Albuterol Inhaler (Ventolin Inhaler) Aers 2 PUFFS INH QID PRN for Shortness of Breath, INHALER Aspirin (Aspirin Ec) 81 Mg Tab 81 MG PO QAM Bumetanide (Bumetanide) 1 Mg Tab 1 MG PO BID, #60 Carbidopa/Levodopa (Sinemet 25MG/100MG) Tab 1 TAB PO BID, TAB Cholecalciferol (Vitamin D 1000 Unit) 1,000 Unit Cap 1000 INTER.UNIT PO QPM, CAP Lactic Acid (Ammonium Lactate Cream 12%) Unknown Strength Cr 1 APPLN TOP BID, #385 apply to dry skin to arms,and back Levothyroxine Sodium (Synthroid) 50 Mcg Tab 50 MCG PO QAM, TAB Morphine Sulfate (Morphine Sulfate Ir) 15 Mg Tab 1.5 TABS PO TID PRN for Pain, #100 Multiple Vitamins W/ Minerals (Centrum) 1 Tab Tab 1 TAB PO QPM Pantoprazole (Protonix) 40 Mg Tab 40 MG PO QAM, TAB Potassium Chloride (Potassium Chloride Er) 10 Meq Tab 10 MEQ PO QAM, TAB Prednisone (Prednisone) 5 Mg Tab 5 MG PO QAM Probiotic Product (Align) 4 Mg Cap 4 MG PO DAILY Sertraline HCl (Sertraline HCl) 25 Mg Tab 25 MG PO DAILY, #30 [lidocaine patch] () 1 PATCH TD QAM pt to remove patch at hs Discontinued Medications: Azithromycin (Zithromax) 250 Mg Tab 250 MG PO DAILY, #4 TAB Carvedilol (Carvedilol) 6.25 Mg Tab 6.25 MG PO BID, #60 Metronidazole (Flagyl) 500 Mg Tab 500 MG PO TID, TAB Referrals At Discharge Follow up Referrals: Family Practice Referral - Within 1 Week with Mil Durand M.D. Paint Formulator Referral - Within 1-2 Weeks with Mil Bojorquez M.D. Complaint Investigator Referral - Within a Month with Sherwin Park MD Discharge Exam Review of Systems: Constitutional: No chills, No fatigue, No fever, No sweats, No weakness Respiratory: No cough, No hemoptysis, No shortness of breath Cardiovascular: No chest pain, No edema, No palpitations Abdomen: + diarrhea, No constipation, No nausea, No pain, No vomiting Genitourinary - Female: No dysuria, No hematuria Neurologic: No numbness/tingling, No weakness Psychiatric: No anxiety, No depression symptoms Hematologic / Lymphatic: No abnormal bleeding/bruising Integumentary: No itch, No new/changing skin lesions, No rash Physical Exam: General Appearance: no apparent distress Eyes: normal inspection, PERRL ENT: hearing grossly normal Neck: supple Respiratory/Chest: lungs clear, no respiratory distress, no accessory muscle use, + decreased breath sounds Cardiovascular: regular rate, rhythm Abdomen / GI: normal bowel sounds, non tender, soft, + hernia (Umbilical- reducible ) Extremities: no calf tenderness, no pedal edema, + swelling (trace pitting edema of bilateral lower extremities ) Neurologic/Psychiatric: alert, normal mood/affect, oriented x 3 Skin: normal color, warm/dry, no rash (Murarik, Marilou ., PA-C) Hospital Course 86 y/o F w/Hx 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 She was recently admitted with N/V and diarrhea and diagnosed with C- diff. She has also been complaining of increasing N/V since discharge on 11/06, SOB, LE edema and a productive cough with wheezing. Per her daughters she had been complaining of all the above symptoms for a few weeks and prior to her recent admission however her symptoms have now worsened. SOB, cough/wheezing, Acute bronchitis, Asthma exacerbation - Improved clinically. She was D/Cd recently with a course of Zithromax and uses albuterol PRN -CT chest showed no PNA but did show mucus plugging and atelectasis, small pleural effusion. Considering her persistent nausea and vomiting, could be aspiration? CT Chest: 1. Trace right pleural effusion 2. Bibasilar atelectasis 3. Mild bronchial wall thickening with several areas of mucous plugging within the left lower lobe. -Swallow evaluation -We will treat for an asthma exacerbation due to her wheezing and persistent SOB with prednisone burst and return to home dose of 5mg daily. She already received 5 day course of Azithromycin recently. -Vanessa -Pulmonary consult appreciated --Recommend PFT --4 day mauricio of Prednisone. Patient was given 20 mg PO on 11/11. She was instructed to take 20 mg PO on 11/12, then 10 mg on 11/13 and 11/14, then resume original 5 mg PO daily. -Combivent added 1 puff q6 -Continue Albuterol 2 puff q4 PRN for SOB/wheezing Nausea and vomiting - intermittent and present for several weeks, most likely initially from C. diff infection and then worsened after last admission due to PO Flagyl, adverse SE. -Significantly improved now on PO Vancomycin -Advanced diet, tolerated well -Antiemetics PRN, stop reglan ATC C - diff colitis, diarrhea- her N/V may be worsened by PO Flagyl - we will change to PO vanc which was previously effective per pt - above allergy info is erroneous -Finish 14 day course total of abx, including 5 days already received of Flagyl -Po Vancomycin 125mg qid through last dose 11/19/16 -Start cholestyramine CAD - marginal troponin increase without additional evidence of ACS - trop neg x 3, cont ASA, monitor on telemetry -Continue Coreg, ASA LE edema, left anterior tibia superficial ulcer -chronic and stable for years, very thin skin from prednisone -Continue Bumex -Wound care -Check ECHO as not done in a few years and had low normal EF previously Chronic pain - will remain on prescribed narcotics and IV for breakthrough if she cannot tolerate PO Hypothyroidism-stable, continue Synthroid Hypertension- increased Coreg to 9.375 mg PO BID due to persistently high BP readings CKD stage III- 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 (Marilou Mcgrath ., PROC) Discharge Instructions Please refer to the electronic Patient Visit Report (Discharge Instructions) for additional information. (Marilou Mcgrath ., SHARI-C) Follow-Up Please follow-up with your PCP within 5-7 days. Please follow up with pulmonary within 1 month. Please follow-up with Dr. Bojorquez within 1-2 weeks. Please follow-up/keep all of your subspecialty appointments. (Marilou Mcgrath, SHARI-C) Additional Copies To Mil Durand M.D. Reviewed: Pt Seen/Exam by , DAVIS Notes, Labs (Mignon Smith MD) History Agree with above PA Discharge summary/ROS. pt much improved on day of discharge , no SOB or cough,no N/V, was tolerating a low fiber diet. (Mignon Smith MD) All Other Systems: Reviewed and Negative (Mignon Smith MD) General Appearance: WD/WN, no apparent distress Eye Exam: bilateral eye normal inspection Ears, Nose, Throat: hearing grossly normal Neck: trachea midline Respiratory: normal breath sounds, no respiratory distress, no accessory muscle use Cardiovascular: normal peripheral pulses, regular rate, rhythm, other (trace pitting edema and thin skin bilat legs) Gastrointestinal: normal bowel sounds, non tender, soft, hernia (reducible umbilical and ventral hernias) Extremities: no calf tenderness Neurologic/Psychiatric: alert, normal mood/affect, oriented x 3 Skin Characteristics: normal color, warm/dry (Mignon Smith MD) Assessment/Plan Agree with above PA Discharge summary with the following additions/exceptions: Needs f/u on her ECHO which was not read by the time of discharge but was doing very well. Needs f/u on Pulm nodule--> will see Pulm within 1 month (Mignon Smith MD)
[2016-11-11 13:07] VITALS: BP 144/78; PULSE 86; TEMP 36.6; O2SAT 93
[2016-11-11] MEDS ORDERED: CHOLESTYRAMINE LIGHT 4 GM PKT PO SCH ×2 (16:30→22:00)
[2016-11-11] MEDS ORDERED: CARVEDILOL 6.25 MG TAB PO SCH (20:00)
== END 2016-11-11 17:30 | disposition home or self-care (01) | DRG 191 ==
LOC: ENRESERVDT → ENRESERVTM → CANRESERV → C.EDB 00:05 → C.2T 02:35 → C.MS4W 18:28
PROVIDERS: ADMIT Internal Medicine; ATTEND Family Medicine
DX: J44.1 Chronic obstructive pulmonary disease with (acute) exacerbation (principal); A04.7 Enterocolitis due to Clostridium difficile; J45.901 Unspecified asthma with (acute) exacerbation; J98.11 Atelectasis; L03.116 Cellulitis of left lower limb; F11.20 Opioid dependence, uncomplicated; J90 Pleural effusion, not elsewhere classified; J44.0 Chronic obstructive pulmonary disease with (acute) lower respiratory infection; T37.3X5A Adverse effect of other antiprotozoal drugs, initial encounter; J20.9 Acute bronchitis, unspecified; R62.7 Adult failure to thrive; R60.0 Localized edema; G89.29 Other chronic pain; M54.9 Dorsalgia, unspecified; R10.9 Unspecified abdominal pain; I12.9 Hypertensive chronic kidney disease with stage 1 through stage 4 chronic kidney disease, or unspecified chronic kidney disease; N18.3 Chronic kidney disease, stage 3 (moderate); E03.9 Hypothyroidism, unspecified; K21.9 Gastro-esophageal reflux disease without esophagitis; I73.9 Peripheral vascular disease, unspecified; R91.1 Solitary pulmonary nodule; I25.10 Atherosclerotic heart disease of native coronary artery without angina pectoris; M81.0 Age-related osteoporosis without current pathological fracture; M19.90 Unspecified osteoarthritis, unspecified site; G20 Parkinson's disease; F41.9 Anxiety disorder, unspecified; R19.00 Intra-abdominal and pelvic swelling, mass and lump, unspecified site; Z86.14 Personal history of Methicillin resistant Staphylococcus aureus infection; Z79.52 Long term (current) use of systemic steroids; Z79.82 Long term (current) use of aspirin; Z79.899 Other long term (current) drug therapy

== ENCOUNTER → 2016-12-08 | Outpatient (CLI) | payer OTHER, MEDICARE ==
[~2016-12-08] MED LIST changes: +IPRA1AER2 INH; -LDDP5 TD; -METR-163 PO; +QSTP PO; +VNCS125 PO; -ZTHM250 PO; +lidocaine patch TD
--- NOTE | 2016-12-08 18:59 | DIAGNOSTIC IMAGING REPORT ---
RIGHT FOOT 3 VIEWS HISTORY: RIGHT FOOT PAIN Right COMPARISON: None. FINDINGS: Old, healed fracture within the mid shaft of the right third metatarsal. Soft tissue calcification dorsal to the talonavicular joint. There is significant soft tissue swelling along the dorsum of the foot. No acute fractures identified at this time. There is mild widening at the base of the first and second metatarsals with deformity and degenerative change across the majority of the tarsometatarsal joint. This favors an old, healed Lisfranc fracture/dislocation. No acute fractures identified this time. No radiopaque foreign bodies. IMPRESSION: 1. No definite acute fractures within the right foot. 2. Extensive soft tissue swelling within the dorsum of the right foot. 3. Suspect old, healed fractures as described above. Electronically signed by: Segundo Silveira M.D. 12/08/2016 6:58 PM Dictated Date/Time: 12/08/2016 6:54 PM
--- NOTE | 2016-12-09 10:08 | CODING QUERY NO DIAGNOSIS ---
: 1930 TREATMENT RENDERED WITHOUT A DIAGNOSIS To promote full compliance with coding requirements relating to patient care, physician participation is requested in all cases of fine dining server uncertainty. Please assist us with providing a diagnosis/symptom for the test(s) below: A diagnosis/symptom was not documented on your Order. A valid diagnosis/symptom is required to bill all insurances. Please remember that we are unable to code a diagnosis of rule out, probable, possible, questionable, or suspected. Tests that require a diagnosis: DOS: 12/08/16 * Foot X-Ray DIAGNOSIS: Provider Signature: Date: Thank you Vanessa [facility] Health Information Management Once completed, please kindly fax back to [phone] For questions please call [phone]
== END | disposition home or self-care (01) ==
LOC: C.RAD 18:32
PROVIDERS: ATTEND Family Medicine
DX: M79.671 Pain in right foot (principal); M79.9 Soft tissue disorder, unspecified

== ENCOUNTER 2016-12-11 12:04 | Inpatient (IN) | payer OTHER, MEDICARE ==
[~2016-12-11] VITALS: Ht 142.2 cm; Wt 58.0 kg
[2016-12-11] MEDS ORDERED: ONDANSETRON INJ 2 MG/ML 2 ML VIAL IV STA (13:21)
[2016-12-11] MEDS ORDERED: SODIUM CHLORIDE 0.9% 1000ML 500 ML IV STA (13:21)
[2016-12-11] MEDS ORDERED: SODIUM CHLORIDE 0.9% 1000ML 1,000 ML IV STA (13:21)
[2016-12-11] MEDS ORDERED: DAPTOmycin IV 500 MG in SODIUM CHLORIDE 0.9% 50ML 50 ML IV STA (13:21)
--- NOTE | 2016-12-11 14:26 | EMERGENCY ROOM VISIT NOTE ---
History Report prepared by Karen: Jignesh Schroeder Under the Supervision of: Dr. Mukesh Nicole M.D. First contact with patient: 13:14 Chief Complaint: VOMITING Stated Complaint: VOMITING, WEAKNESS Nursing Triage Summary: Pt was brought in today via ambulance BLS. Pt has been vomiting and has had overall generalized weakness for the last couple of days. Pt was recently in the hospital and had CDiff. Pt stated that she is unable to keep anything down. Pt had called her PCP two days ago and was advised to come into the ED. Pt stated that she did not want to come back to the hospital but she is unable to walk so she decided to call 911. Pt normally is able to ambulate with a walker. The pt also stated that yesterday she stepped wrong on her right foot and it is very sore. Pt has tenderness and edema to bilateral lower extremities. Pt vitals were stable during transportation. History of Present Illness The patient is an 86 year old female who presents to the Emergency Room via ambulance with complaints of persistent nausea for the past two days. The patient has been of vomiting, and is unable to keep anything down. She also complains of generalized weakness, dehydration, and abdominal pain. The patient denies any fevers or urinary symptoms. The patient was recently in the hospital for C. Diff. She is no longer having issues with diarrhea. The patient separately complains of right foot pain for the past week. She is unable to walk secondary to pain. The patient saw Dr. Durand (Family Medicine) 4-5 days ago for the foot pain, where she had a negative X-ray of the foot. She has swelling of the lower extremities at baseline. The patient takes baby aspirin daily. She does not have a history of blood clots. Source of History: patient Onset: two days ago Position: other (GI) Quality: other (nausea) Timing: other (persistent) Associated Symptoms: + abdominal pain, + vomiting, + weakness, No diarrhea, No fevers, No urinary symptoms Review of Systems See HPI for pertinent positives & negatives. A total of 10 systems reviewed and were otherwise negative. Past Medical & Surgical Medical Problems: (1) abdominal pain (2) Asthma (3) C. difficile diarrhea (4) Chronic kidney disease (5) COPD exacerbation (6) Dyspnea (7) Hypertension (8) Left leg cellulitis Surgical Problems: (1) S/P appendectomy (2) S/P cholecystectomy Family History FH: heart disease Hypertension Kidney disease Kidney stones Social History Smoking Status: Former Smoker Drug Use: none Marital Status: Housing Status: lives with family Occupation Status: retired Current/Historical Medications Scheduled Aspirin (Aspirin Ec), 81 MG PO QAM Bumetanide (Bumetanide), 1 MG PO BID Carbidopa/Levodopa (Sinemet 25MG/100MG), 1 TAB PO BID Carvedilol (Carvedilol), 9.375 MG PO BID Cholecalciferol (Vitamin D 1000 Unit), 1,000 INTER.UNIT PO QPM Ipratropium-Albuterol (Combivent Respimat), 1 PUFFS INH Q6 Lactic Acid (Ammonium Lactate Cream 12%), 1 APPLN TOP BID Levothyroxine Sodium (Synthroid), 50 MCG PO QAM Multiple Vitamins W/ Minerals (Centrum), 1 TAB PO QPM Pantoprazole (Protonix), 40 MG PO QAM Potassium Chloride (Potassium Chloride Er), 10 MEQ PO QAM Prednisone (Prednisone), 5 MG PO QAM Probiotic Product (Align), 4 MG PO DAILY Scheduled PRN Morphine Sulfate (Morphine Sulfate Ir), 1.5 TABS PO TID PRN for Pain Allergies Coded Allergies: Codeine (Verified Allergy, Mild, 12/11/16) Penicillins (Verified Allergy, Mild, ., 12/11/16) tolerated cefepime Banana (Verified Allergy, Unknown, GI symptoms, 12/11/16) Erythromycin (Verified Allergy, Unknown, ., 12/11/16) Sulfa Antibiotics (Verified Allergy, Unknown, Unknown, 12/11/16) Vancomycin (Verified Allergy, Unknown, ., 12/11/16) Cantaloupe (Verified Adverse Reaction, Unknown, GI SYMPTOMS FROM UNSPECIFIED MELONS, 12/11/16) Physical Exam Vital Signs Date Time Temp Pulse Resp B/P Pulse Ox O2 Delivery O2 Flow Rate FiO2 12/11/16 15:12 67 16 117/63 96 12/11/16 12:32 55 12/11/16 12:18 36.5 64 23 110/55 94 Room Air Physical Exam GENERAL: Patient is in no acute distress. HEENT: No acute trauma, normocephalic atraumatic, mucous membranes are dry, no nasal congestion, no scleral icterus. NECK: No stridor, no adenopathy, no meningismus, trachea is midline. LUNGS: Clear to auscultation bilaterally, no wheeze, no rhonchi, breath sounds equal. HEART: Without murmurs gallops or rubs, regular rate and rhythm. ABDOMEN: Soft, nontender, bowel sounds positive, no hernias, no peritonitis. EXTREMITIES: Bilateral pedal edema with ZULLY wraps, right foot and ankle are erythematous and warm consistent with a cellulitis, no drainage. NEUROLOGIC: Oriented x 3, no acute motor or sensory deficits, no focal weakness. SKIN: No rash, no jaundice, no diaphoresis. Medical Decision & Procedures ER Provider Diagnostic Interpretation: X ray results and stated below per my interpretation and radiologist interpretation. Other radiology results and stated below per my review and radiologist interpretation: RIGHT ANKLE MIN 3 VIEWS ROUTINE CLINICAL HISTORY: pain, right Right pain COMPARISON: None. DISCUSSION: Generalized soft tissue edema. No well-defined acute bony abnormality. Soft tissue vascular and or synovial calcifications. Considerable degenerative change of the intertarsal as well as tarsometatarsal region. IMPRESSION: Soft tissue edema. Degenerative change. Electronically signed by: Jeff Dupree M.D. 12/11/2016 2:28 PM Dictated Date/Time: 12/11/2016 2:27 PM CHEST ONE VIEW PORTABLE CLINICAL HISTORY: Evaluate Fever/Sepsis dyspnea COMPARISON STUDY: 11/09/2016 FINDINGS: The bones soft tissues and hemidiaphragms are normal. The cardiomediastinal silhouette is normal. The lungs are clear. The pulmonary vasculature is normal. IMPRESSION: Negative chest. Electronically signed by: Jeff Dupree M.D. 12/11/2016 2:28 PM Dictated Date/Time: 12/11/2016 2:28 PM RIGHT FOOT MIN 3 VIEWS ROUTINE CLINICAL HISTORY: pain, right Right pain COMPARISON: None. DISCUSSION: Generalized degenerative change of the intertarsal tarsometatarsal joints. Generalized soft tissue edema. Subchondral degenerative cyst formation throughout. Old healed fracture midshaft third metatarsal. The distal phalanges appear unremarkable. Moderate soft tissue edema IMPRESSION: Generalized degeneration of the intertarsal as well as tarsometatarsal joints. Soft tissue edema. 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 12/11/2016 2:26 PM Dictated Date/Time: 12/11/2016 2:25 PM RIGHT LOWER EXTREMITY VENOUS DOPPLER HISTORY: Right leg pain and swelling. COMPARISON STUDY: None. FINDINGS: There is normal compressibility, flow, and augmentation within the right lower extremity deep venous system. IMPRESSION: No DVT within the right lower extremity Electronically signed by: Segundo Silveira M.D. 12/11/2016 4:17 PM Dictated Date/Time: 12/11/2016 4:16 PM ABDOMEN AND PELVIS CT WITHOUT CONTRAST CT DOSE: 1226.06 mGy.cm HISTORY: EVALUATE FLANK PAIN/HEMATURIA TECHNIQUE: Multiaxial CT images of the abdomen and pelvis were performed without the use of intravenous and oral contrast according to the standard department stone protocol. COMPARISON STUDY: Abdomen and pelvis CT 11/04/2016. FINDINGS: Mild bibasilar subsegmental atelectasis. No pneumoperitoneum. No pneumatosis. Old, healed left inferior pubic fracture. Small fat-containing supraumbilical hernia and small fat fat-containing umbilical hernia remain unchanged. Small fat-containing right inguinal hernia. Multiple calcified granulomas seen within the liver and spleen. Cholecystectomy. Normal adrenal glands. Stable 1 cm cystic lesion at the tail the pancreas. This favors a small cystic neoplasm such as a side branch intraductal papillary mucinous neoplasm. No retroperitoneal lymphadenopathy. Normal bladder. No hydronephrosis. Stable septated cystic lesion along the left side of the vaginal cuff. This measures 4.5 cm. This could be associated with the left ovary if the left ovary is present. Multiple sigmoid diverticula. Mild thickening and adjacent to a distal sigmoid diverticulum is stable to slightly progressed from the prior study. No evidence for bowel obstruction. IMPRESSION: 1. No renal stones or hydronephrosis. 2. Mild soft tissue thickening adjacent to multiple distal sigmoid colonic diverticula. This is stable to slightly progressed compared to the prior study. This may represent a mild acute on chronic diverticulitis. 3. No change in the septated cystic lesion along the left side of the vaginal cuff. This could be associated with the left ovary if present. This could be due to postoperative change or a cystic ovarian neoplasm. Gynecologic nonemergent consultation is recommended. 4. Small ventral hernias remain unchanged. 5. Prior cholecystectomy. 6. Stable 1 cm cystic lesion within the tail of the pancreas. Electronically signed by: Segundo Silveira M.D. 12/11/2016 5:00 PM Dictated Date/Time: 12/11/2016 4:49 PM Laboratory Results 12/11/16 14:59 Red Blood Count 3.61, Mean Corpuscular Volume 94.7, Mean Corpuscular Hemoglobin 29.9, Mean Corpuscular Hemoglobin Concent 31.6, Mean Platelet Volume 9.5, Neutrophils (%) (Auto) 73.4, Lymphocytes (%) (Auto) 12.2, Monocytes (%) (Auto) 11.3, Eosinophils (%) (Auto) 1.8, Basophils (%) (Auto) 0.2, Neutrophils # (Auto ) 6.84, Lymphocytes # (Auto) 1.14, Monocytes # (Auto) 1.05, Eosinophils # (Auto ) 0.17, Basophils # (Auto) 0.02 12/11/16 14:59 Test 12/11/16 14:59 White Blood Count 9.32 K/uL (4.8-10.8) Red Blood Count 3.61 M/uL (4.2-5.4) Hemoglobin 10.8 g/dL (12.0-16.0) Hematocrit 34.2 % (37-47) Mean Corpuscular Volume 94.7 fL (80-100) Mean Corpuscular Hemoglobin 29.9 pg (25-34) Mean Corpuscular Hemoglobin Concent 31.6 g/dl (32-36) Platelet Count 236 K/uL (130-400) Mean Platelet Volume 9.5 fL (7.4-10.4) Neutrophils (%) (Auto) 73.4 % Lymphocytes (%) (Auto) 12.2 % Monocytes (%) (Auto) 11.3 % Eosinophils (%) (Auto) 1.8 % Basophils (%) (Auto) 0.2 % Neutrophils # (Auto) 6.84 K/uL (1.4-6.5) Lymphocytes # (Auto) 1.14 K/uL (1.2-3.4) Monocytes # (Auto) 1.05 K/uL (0.11-0.59) Eosinophils # (Auto) 0.17 K/uL (0-0.5) Basophils # (Auto) 0.02 K/uL (0-0.2) RDW Standard Deviation 49.9 fL (36.4-46.3) RDW Coefficient of Variation 14.4 % (11.5-14.5) Immature Granulocyte % (Auto) 1.1 % Immature Granulocyte # (Auto) 0.10 K/uL (0.00-0.02) Prothrombin Time 9.8 SECONDS (9.0-12.0) Prothromb Time International Ratio 0.9 (0.9-1.1) Activated Partial Thromboplast Time 21.9 SECONDS (21.0-31.0) Partial Thromboplastin Ratio 0.8 Anion Gap 12.0 mmol/L (3-11) Est Creatinine Clear Calc Drug Dose 5.6 ml/min Estimated GFR () 8.2 Estimated GFR (Non- 7.1 BUN/Creatinine Ratio 10.7 (10-20) Lactic Acid Level 0.8 mmol/L (0.4-2.0) Calcium Level 9.1 mg/dl (8.5-10.1) Total Bilirubin 0.8 mg/dl (0.2-1) Aspartate Amino Transf (AST/SGOT) 26 U/L (15-37) Alanine Aminotransferase (ALT/SGPT) < 6 U/L (12-78) Alkaline Phosphatase 42 U/L (45-117) Total Protein 6.3 gm/dl (6.4-8.2) Albumin 2.9 gm/dl (3.4-5.0) Globulin 3.4 gm/dl (2.5-4.0) Albumin/Globulin Ratio 0.9 (0.9-2) Laboratory results reviewed by me. Medications Administered Medications (Trade) Dose Ordered Sig/Zack Route Start Time Stop Time Status Last Admin Dose Admin Sodium Chloride (Nss 1000ml) 500 ml @ 999 mls/hr Q31M STAT IV 12/11/16 13:21 12/11/16 13:51 DC 12/11/16 13:21 999 MLS/HR Ondansetron HCl 4 mg 4 mg NOW STAT IV 12/11/16 13:21 12/11/16 13:27 DC 12/11/16 14:43 4 MG Sodium Chloride 1,000 ml @ 200 mls/hr Q5H STAT IV 12/11/16 13:21 12/11/16 18:20 12/11/16 13:21 200 MLS/HR Daptomycin 500 mg/ Sodium Chloride 60 ml @ 100 mls/hr NOW STAT IV 12/11/16 13:21 12/11/16 13:56 DC 12/11/16 15:19 100 MLS/HR Sodium Chloride (Nss 250ml) 250 ml @ 999 mls/hr Q16M STAT IV 12/11/16 16:14 12/11/16 16:29 DC 12/11/16 16:14 999 MLS/HR ECG Indication: vomiting Rate (beats per minute): 59 Rhythm: sinus bradycardia Findings: no acute ischemic change, no ectopy, other (old septal infarct) ED Course 1315: The patient was evaluated in room C7. A complete history and physical exam was performed. 1321: Daptomycin 500 mg / NSS 60 ml @ 100 mls/hr, NSS 1000 ml @ 200 mls/hr, Zofran 4 mg Iv, NSS 500 ml @ 999 mls/hr. 1614: NSS 250 ml @ 999 mls/hr. 1616: Went to check on the patient, but she was still at ultrasound. 1642: Spoke with Dr. Bose [facility]. The patient will be evaluated 1645: Updated the patient. She verbalized understanding and agreement of the treatment plan. Medical Decision Differential diagnosis includes right foot or ankle fracture, DVT, cellulitis, dehydration, electrolyte imbalance, UTI, renal failure. There is no leukocytosis. A mild anemia is present. Renal panel testing shows a mildly high potassium with acute renal failure. No hepatitis or coagulopathy. Right foot and ankle films show no obvious acute fractures, an old fracture to the foot was seen. Right leg ultrasound does not show evidence for DVT. Lactic acid level is not elevated making sepsis less likely. Blood cultures are pending. Abdominal and pelvis CT did not show hydronephrosis or urinary obstruction. Some chronic findings were noted. Urinalysis result is still pending. The patient received IV saline, she was given IV Zofran for nausea. She received IV daptomycin for the right ankle and foot cellulitis. I spoke to the patient and her family. I talked to case management. The on- call hospitalist was consulted. With her cellulitis, with her weakness, with the acute renal failure, admission/observation was warranted. Consults Time Called: 1635 [facility]: [facility]1 1642: Spoke with Dr. Bose [facility] Hospitalist. The patient will be evaluated. Impression Primary Impression: ARF (acute renal failure) Additional Impressions: Weakness Cellulitis of right leg Scribe Attestation The scribe's documentation has been prepared under my direction and personally reviewed by me in its entirety. I confirm that the note above accurately reflects all work, treatment, procedures, and medical decision making performed by me. Departure Information Dispostion Being Evaluated By Hospitalist Referrals Mil Durand M.D. (PCP) Patient Instructions My [facility] Health Problem Qualifiers
--- NOTE | 2016-12-11 14:29 | DIAGNOSTIC IMAGING REPORT ---
RIGHT ANKLE MIN 3 VIEWS ROUTINE CLINICAL HISTORY: pain, right Right pain COMPARISON: None. DISCUSSION: Generalized soft tissue edema. No well-defined acute bony abnormality. Soft tissue vascular and or synovial calcifications. Considerable degenerative change of the intertarsal as well as tarsometatarsal region. IMPRESSION: Soft tissue edema. Degenerative change. Electronically signed by: Jeff Dupree M.D. 12/11/2016 2:28 PM Dictated Date/Time: 12/11/2016 2:27 PM
--- NOTE | 2016-12-11 14:29 | DIAGNOSTIC IMAGING REPORT ---
CHEST ONE VIEW PORTABLE CLINICAL HISTORY: Evaluate Fever/Sepsis dyspnea COMPARISON STUDY: 11/09/2016 FINDINGS: The bones soft tissues and hemidiaphragms are normal. The cardiomediastinal silhouette is normal. The lungs are clear. The pulmonary vasculature is normal. IMPRESSION: Negative chest. Electronically signed by: Jeff Dupree M.D. 12/11/2016 2:28 PM Dictated Date/Time: 12/11/2016 2:28 PM
[2016-12-11 15:18] LABS: BASO % 0.2 %; BASO ABS # 0.02 K/uL (0-0.2); COMPLETE YES; EOS % 1.8 %; HEMATOCRIT 34.2 % (37-47); IG% 1.1 %; LYMPH % 12.2 %; LYMPH ABS # 1.14 K/uL (1.2-3.4); MEAN CELL VOLUME 94.7 fL (80-100); MEAN CORPUSCULAR HEMOGLOBIN 29.9 pg (25-34); MEAN CORPUSCULAR HGB CONC 31.6 g/dl (32-36); MEAN PLATELET VOLUME 9.5 fL (7.4-10.4); MONO % 11.3 %; NEUT % 73.4 %; PLATELET COUNT 236 K/uL (130-400); RED BLOOD COUNT 3.61 M/uL (4.2-5.4); WHITE BLOOD COUNT 9.32 K/uL (4.8-10.8)
[2016-12-11 15:34] LABS: INR 0.9 (0.9-1.1); PARTIAL THROMBOPLASTIN RATIO 0.8; PROTHROMBIN TIME (PATIENT) 9.8 SECONDS (9.0-12.0)
[2016-12-11 15:50] LABS: ALB/GLOB RATIO 0.9 (0.9-2); ALKALINE PHOSPHATASE 42 U/L (45-117); ALT/SGPT < 6 U/L (12-78); AST/SGOT 26 U/L (15-37); BLOOD UREA NITROGEN 55 mg/dl (7-18); BUN/CREATININE RATIO 10.7 (10-20); CALCIUM 9.1 mg/dl (8.5-10.1); CARBON DIOXIDE 27 mmol/L (21-32); CHLORIDE 96 mmol/L (98-107); GLUCOSE 84 mg/dl (70-99); POTASSIUM 5.6 mmol/L (3.5-5.1); SODIUM 135 mmol/L (136-145)
[2016-12-11] MEDS ORDERED: SODIUM CHLORIDE 0.9% 250ML 250 ML IV STA (16:14)
--- NOTE | 2016-12-11 16:18 | DIAGNOSTIC IMAGING REPORT ---
RIGHT LOWER EXTREMITY VENOUS DOPPLER HISTORY: Right leg pain and swelling. COMPARISON STUDY: None. FINDINGS: There is normal compressibility, flow, and augmentation within the right lower extremity deep venous system. IMPRESSION: No DVT within the right lower extremity Electronically signed by: Segundo Silveira M.D. 12/11/2016 4:17 PM Dictated Date/Time: 12/11/2016 4:16 PM
--- NOTE | 2016-12-11 17:02 | DIAGNOSTIC IMAGING REPORT ---
ABDOMEN AND PELVIS CT WITHOUT CONTRAST CT DOSE: 1226.06 mGy.cm HISTORY: EVALUATE FLANK PAIN/HEMATURIA TECHNIQUE: Multiaxial CT images of the abdomen and pelvis were performed without the use of intravenous and oral contrast according to the standard department stone protocol. COMPARISON STUDY: Abdomen and pelvis CT 11/04/2016. FINDINGS: Mild bibasilar subsegmental atelectasis. No pneumoperitoneum. No pneumatosis. Old, healed left inferior pubic fracture. Small fat-containing supraumbilical hernia and small fat fat-containing umbilical hernia remain unchanged. Small fat-containing right inguinal hernia. Multiple calcified granulomas seen within the liver and spleen. Cholecystectomy. Normal adrenal glands. Stable 1 cm cystic lesion at the tail the pancreas. This favors a small cystic neoplasm such as a side branch intraductal papillary mucinous neoplasm. No retroperitoneal lymphadenopathy. Normal bladder. No hydronephrosis. Stable septated cystic lesion along the left side of the vaginal cuff. This measures 4.5 cm. This could be associated with the left ovary if the left ovary is present. Multiple sigmoid diverticula. Mild thickening and adjacent to a distal sigmoid diverticulum is stable to slightly progressed from the prior study. No evidence for bowel obstruction. IMPRESSION: 1. No renal stones or hydronephrosis. 2. Mild soft tissue thickening adjacent to multiple distal sigmoid colonic diverticula. This is stable to slightly progressed compared to the prior study. This may represent a mild acute on chronic diverticulitis. 3. No change in the septated cystic lesion along the left side of the vaginal cuff. This could be associated with the left ovary if present. This could be due to postoperative change or a cystic ovarian neoplasm. Gynecologic nonemergent consultation is recommended. 4. Small ventral hernias remain unchanged. 5. Prior cholecystectomy. 6. Stable 1 cm cystic lesion within the tail of the pancreas. Electronically signed by: Segundo Silveira M.D. 12/11/2016 5:00 PM Dictated Date/Time: 12/11/2016 4:49 PM
[2016-12-11 18:45] VITALS: O2SAT 96; Ht 142.2 cm; Wt 58.0 kg
[2016-12-11] MEDS ORDERED: ACETAMINOPHEN 325 MG TAB PO PRN (18:45)
[2016-12-11] MEDS ORDERED: LORAZEPAM 2 MG/ML 1 ML VIAL IV PRN (18:45)
[2016-12-11] MEDS ORDERED: ONDANSETRON INJ 2 MG/ML 2 ML VIAL IV PRN (18:45)
[2016-12-11] MEDS ORDERED: BISACODYL 10 MG SUPP PR PRN (18:45)
[2016-12-11] MEDS ORDERED: DiphenhydrAMINE HCL 50 MG/ML VIAL IV PRN (18:45)
[2016-12-11] MEDS ORDERED: ZOLPIDEM TARTRATE 5 MG TAB PO PRN (18:45)
[2016-12-11] MEDS ORDERED: ALUMINUM/MAGNESIUM/SIMETH (MAALOX MAX) 30 ML UDC PO PRN (18:45)
[2016-12-11] MEDS ORDERED: MAGNESIUM HYDROXIDE SUSP 30 ML UDC PO PRN (18:45)
[2016-12-11] MEDS ORDERED: MoRPHine SULFATE 2 MG/ML CARP IV PRN (18:45)
[2016-12-11] MEDS ORDERED: PROMETHAZINE HCL INJ 12.5 MG in SODIUM CHLORIDE 0.9% 50ML 50 ML IV PRN (18:45)
--- NOTE | 2016-12-11 19:44 | History and Physical ---
History & Physical Date & Time of Service: Dec 11, 2016 at 19:37 Chief Complaint: Arf (Acute Renal Failure), Cellulitis Of Right Leg Primary Care Physician: Mil Durand M.D. History of Present Illness Source: patient, family The patient is an 86-year-old female who presents emergency department via ambulance due to nausea, vomiting, generalized weakness, dehydration and abdominal pain worsening over the past 2 days. She was in the hospital in November for treatment for C. difficile colitis and acute renal insufficiency. She has a visiting nurse apply dressing to her left lower extremity, but as noted of the past week worsening right foot and ankle and lower banda pain. She did have x-rays of the foot done [address] Durand, which did not show any fracture. Past Medical/Surgical History Medical Problems: (1) Asthma Status: Chronic (2) COPD exacerbation Status: Resolved (3) Left leg cellulitis Status: Chronic Surgical Problems: (1) S/P appendectomy Status: Resolved (2) S/P cholecystectomy Status: Resolved Family History FH: heart disease Hypertension Kidney disease Kidney stones Social History Smoking Status: Former Smoker Smokeless Tobacco Use: No Alcohol Use: none Drug Use: none Marital Status: Housing status: lives with family Occupational Status: retired Immunizations History of Influenza Vaccine: No History of Tetanus Vaccine?: Yes Tetanus Immunization Date: Apr 06, 2006 History of Pneumococcal: No History of Hepatitis B Vaccine: Unknown Multi-Drug Resistant Organisms History of MDRO: Yes Type of MDRO: MRSA Allergies Coded Allergies: Codeine (Verified Allergy, Mild, 12/11/16) Penicillins (Verified Allergy, Mild, ., 12/11/16) tolerated cefepime Banana (Verified Allergy, Unknown, GI symptoms, 12/11/16) Erythromycin (Verified Allergy, Unknown, ., 12/11/16) Sulfa Antibiotics (Verified Allergy, Unknown, Unknown, 12/11/16) Vancomycin (Verified Allergy, Unknown, ., 12/11/16) Cantaloupe (Verified Adverse Reaction, Unknown, GI SYMPTOMS FROM UNSPECIFIED MELONS, 12/11/16) Home Medications Scheduled Aspirin (Aspirin Ec), 81 MG PO QAM Bumetanide (Bumetanide), 1 MG PO BID Carbidopa/Levodopa (Sinemet 25MG/100MG), 1 TAB PO BID Carvedilol (Carvedilol), 9.375 MG PO BID Cholecalciferol (Vitamin D 1000 Unit), 1,000 INTER.UNIT PO QPM Ipratropium-Albuterol (Combivent Respimat), 1 PUFFS INH Q6 Lactic Acid (Ammonium Lactate Cream 12%), 1 APPLN TOP BID Levothyroxine Sodium (Synthroid), 50 MCG PO QAM Multiple Vitamins W/ Minerals (Centrum), 1 TAB PO QPM Pantoprazole (Protonix), 40 MG PO QAM Potassium Chloride (Potassium Chloride Er), 10 MEQ PO QAM Prednisone (Prednisone), 5 MG PO QAM Probiotic Product (Align), 4 MG PO DAILY Scheduled PRN Morphine Sulfate (Morphine Sulfate Ir), 1.5 TABS PO TID PRN for Pain Review of Systems The patient denies chest pain, palpitations, shortness of breath, cough, lower extremity swelling, vision change, hearing change, sore throat, fevers, chills, sweats, weight change, blood in urine or stool, dysuria, urinary frequency or urgency, lightheadedness, dizziness, headache, memory loss, rash, abnormal bruising or bleeding, imbalance, focal weakness, numbness or tingling in arms or legs, back or neck pain, night sweats, or allergy symptoms. The review of systems is otherwise negative other than for that already noted above, and at least 10 systems have been reviewed. Physical Exam Vital Signs Date Time Temp Pulse Resp B/P Pulse Ox O2 Delivery O2 Flow Rate FiO2 12/11/16 18:45 96 Room Air 12/11/16 15:12 67 16 117/63 96 12/11/16 12:32 55 12/11/16 12:18 36.5 64 23 110/55 94 Room Air The patient is awake, alert and oriented 3, appears fatigued and dehydrated, otherwise lying in bed and in no acute distress. HEENT--PERRL, EOMI, mucous membranes and oropharynx dry. Neck--supple, no JVD or bruits, thyroid normal, trachea midline, no adenopathy. Heart--normal S1 and S2, no extra beats, no murmurs, rubs or gallops. Lungs--clear bilaterally, no respiratory distress, no accessory muscle use. Abdomen--normal bowel sounds and soft, nontender and nondistended, no hernias or masses, no organomegaly. Extremities--no cyanosis, clubbing or edema. There are good distal pulses b/l. Dermatologic--skin is dry. There is erythema and warmth of the dorsum of the foot, ankle and 8 cm up the tibial shaft. Neurologic--cranial nerves II through XII grossly intact. Psychiatric--normal affect. Diagnostics Laboratory Results Results Past 24 Hours Test 12/11/16 14:59 Range/Units White Blood Count 9.32 4.8-10.8 K/uL Red Blood Count 3.61 4.2-5.4 M/uL Hemoglobin 10.8 12.0-16.0 g/dL Hematocrit 34.2 37-47 % Mean Corpuscular Volume 94.7 80-100 fL Mean Corpuscular Hemoglobin 29.9 25-34 pg Mean Corpuscular Hemoglobin Concent 31.6 32-36 g/dl Platelet Count 236 130-400 K/uL Mean Platelet Volume 9.5 7.4-10.4 fL Neutrophils (%) (Auto) 73.4 % Lymphocytes (%) (Auto) 12.2 % Monocytes (%) (Auto) 11.3 % Eosinophils (%) (Auto) 1.8 % Basophils (%) (Auto) 0.2 % Neutrophils # (Auto) 6.84 1.4-6.5 K/uL Lymphocytes # (Auto) 1.14 1.2-3.4 K/uL Monocytes # (Auto) 1.05 0.11-0.59 K/uL Eosinophils # (Auto) 0.17 0-0.5 K/uL Basophils # (Auto) 0.02 0-0.2 K/uL RDW Standard Deviation 49.9 36.4-46.3 fL RDW Coefficient of Variation 14.4 11.5-14.5 % Immature Granulocyte % (Auto) 1.1 % Immature Granulocyte # (Auto) 0.10 0.00-0.02 K/uL Prothrombin Time 9.8 9.0-12.0 SECONDS Prothromb Time International Ratio 0.9 0.9-1.1 Activated Partial Thromboplast Time 21.9 21.0-31.0 SECONDS Partial Thromboplastin Ratio 0.8 Sodium Level 135 136-145 mmol/L Potassium Level 5.6 3.5-5.1 mmol/L Chloride Level 96 98-107 mmol/L Carbon Dioxide Level 27 21-32 mmol/L Anion Gap 12.0 3-11 mmol/L Blood Urea Nitrogen 55 7-18 mg/dl Creatinine 5.10 0.60-1.20 mg/dl Est Creatinine Clear Calc Drug Dose 5.6 ml/min Estimated GFR () 8.2 Estimated GFR (Non- 7.1 BUN/Creatinine Ratio 10.7 10-20 Random Glucose 84 70-99 mg/dl Lactic Acid Level 0.8 0.4-2.0 mmol/L Calcium Level 9.1 8.5-10.1 mg/dl Total Bilirubin 0.8 0.2-1 mg/dl Aspartate Amino Transf (AST/SGOT) 26 15-37 U/L Alanine Aminotransferase (ALT/SGPT) < 6 12-78 U/L Alkaline Phosphatase 42 45-117 U/L Total Protein 6.3 6.4-8.2 gm/dl Albumin 2.9 3.4-5.0 gm/dl Globulin 3.4 2.5-4.0 gm/dl Albumin/Globulin Ratio 0.9 0.9-2 Microbiology Results 12/11/16 Blood Culture, Received Pending 12/11/16 Blood Culture, Received Pending Diagnostic Radiology Patient Name: JOHNNY LEWIS Unit Number: [id number] Dictated: 12/11/161615 Transcribed: 12/11/161615 [facility] Printed Date/Time: [~ rep prt dt]/[~ rep prt tm] [~ rep ct labl] - [~ rep ct ivnm] [facility] [place] [address] Dictated: 12/11/161615 Transcribed: 12/11/161615 [facility] Printed Date/Time: [~ rep prt dt]/[~ rep prt tm] [~ rep ct labl] - [~ rep ct ivnm] RIGHT LOWER EXTREMITY VENOUS DOPPLER HISTORY: Right leg pain and swelling. COMPARISON STUDY: None. FINDINGS: There is normal compressibility, flow, and augmentation within the right lower extremity deep venous system. IMPRESSION: No DVT within the right lower extremity Electronically signed by: Segundo Silveira M.D. 12/11/2016 4:17 PM Dictated Date/Time: 12/11/2016 4:16 PM The status of this report is Signed. Draft = Not yet reviewed or approved by Radiologist. Signed = Reviewed and approved by Radiologist. <AttendingPhy></AttendingPhy> <FamilyPhy>Mil Durand M.D.</FamilyPhy> < PrimaryPhy>Mil Durand M.D.</PrimaryPhy> <UnitNumber>[id number]</ UnitNumber> <VisitNumber>[id number]</VisitNumber> <PatientName>JOHNNY LEWIS</ PatientName> <DateOfBirth>1930</DateOfBirth> <Location>[facility]</Location> < ServiceDate>12/11/16</ServiceDate> <MNE>ESINDI</MNE> <OrderingPhy>Mukesh Nicole M.D.</OrderingPhy> <OrderingPhyMNE>f rep ord dr fish</OrderingPhyMNE> < DictatingPhyMNE>f rep dict dr fish</DictatingPhyMNE> <CCListMNE>f rep ct mne</ CCListMNE> <AdmittingPhyMNE>f pt admit dr fish</AdmittingPhyMNE> <AttendingPhyMNE >f pt attend dr fish</AttendingPhyMNE> <ConsultingPhyMNE>f pt consult dr fish</ConsultingPhyMNE> <FamilyPhyMNE>f pt fam dr fish</FamilyPhyMNE> <OtherPhyMNE>f pt other dr fish</OtherPhyMNE> < PrimaryPhyMNE>f pt prim care dr fish</PrimaryPhyMNE> <ReferringPhyMNE>f pt referring dr fish</ReferringPhyMNE> Patient Name: JOHNNY LEWIS Unit Number: [id number] Dictated: 12/11/161424 Transcribed: 12/11/161424 [facility] Printed Date/Time: [~ rep prt dt]/[~ rep prt tm] [~ rep ct labl] - [~ rep ct ivnm] [facility] Radiology Department [place] [id number] Dictated: 12/11/161424 Transcribed: 12/11/16 1425 [facility] Printed Date/Time: [~ rep prt dt]/[~ rep prt tm] [~ rep ct labl] - [~ rep ct ivnm] [~ rep ct add3]] RIGHT FOOT MIN 3 VIEWS ROUTINE CLINICAL HISTORY: pain, right Right pain COMPARISON: None. DISCUSSION: Generalized degenerative change of the intertarsal tarsometatarsal joints. Generalized soft tissue edema. Subchondral degenerative cyst formation throughout. Old healed fracture midshaft third metatarsal. The distal phalanges appear unremarkable. Moderate soft tissue edema IMPRESSION: Generalized degeneration of the intertarsal as well as tarsometatarsal joints. Soft tissue edema. 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 12/11/2016 2:26 PM Dictated Date/Time: 12/11/2016 2:25 PM The status of this report is Signed. Draft = Not yet reviewed or approved by Radiologist. Signed = Reviewed and approved by Radiologist. <AttendingPhy></AttendingPhy> <FamilyPhy>Mil Durand M.D.</FamilyPhy> < PrimaryPhy>Mil Durand M.D.</PrimaryPhy> <UnitNumber>[id number]</ UnitNumber> <VisitNumber>[id number]</VisitNumber> <PatientName>LEWIS,JOHNNY</ PatientName> <DateOfBirth>1930</DateOfBirth> <Location>[facility]</Location> < ServiceDate>12/11/16</ServiceDate> <MNE>ESINDI</MNE> <OrderingPhy>Mukesh Nicole M.D.</OrderingPhy> <OrderingPhyMNE>f rep ord dr fish</OrderingPhyMNE> < DictatingPhyMNE>f rep dict dr fish</DictatingPhyMNE> <CCListMNE>f rep ct rajnie</ CCListMNE> <AdmittingPhyMNE>f pt admit dr fish</AdmittingPhyMNE> <AttendingPhyMNE >f pt attend dr fish</AttendingPhyMNE> <ConsultingPhyMNE>f pt consult dr fish</ConsultingPhyMNE> <FamilyPhyMNE>f pt fam dr fish</FamilyPhyMNE> <OtherPhyMNE>f pt other dr fish</OtherPhyMNE> < PrimaryPhyMNE>f pt prim care dr fish</PrimaryPhyMNE> <ReferringPhyMNE>f pt referring dr fish</ReferringPhyMNE> Patient Name: JOHNNY LEWIS Unit Number: [id number] Dictated: 12/11/161427 Transcribed: 12/11/161427 [facility] Printed Date/Time: [~ rep prt dt]/[~ rep prt tm] [~ rep ct labl] - [~ rep ct ivnm] [facility] [place] [address] Dictated: 12/11/161427 Transcribed: 12/11/161427 [facility] Printed Date/Time: [~ rep prt dt]/[~ rep prt tm] [~ rep ct labl] - [~ rep ct ivnm] CHEST ONE VIEW PORTABLE CLINICAL HISTORY: Evaluate Fever/Sepsis dyspnea COMPARISON STUDY: 11/09/2016 FINDINGS: The bones soft tissues and hemidiaphragms are normal. The cardiomediastinal silhouette is normal. The lungs are clear. The pulmonary vasculature is normal. IMPRESSION: Negative chest. Electronically signed by: Jeff Dupree M.D. 12/11/2016 2:28 PM Dictated Date/Time: 12/11/2016 2:28 PM The status of this report is Signed. Draft = Not yet reviewed or approved by Radiologist. Signed = Reviewed and approved by Radiologist. <AttendingPhy></AttendingPhy> <FamilyPhy>Mil Durand M.D.</FamilyPhy> < PrimaryPhy>Mil Durand M.D.</PrimaryPhy> <UnitNumber>[id number]</ UnitNumber> <VisitNumber>[id number]</VisitNumber> <PatientName>JOHNNY LEWIS</ PatientName> <DateOfBirth>1930</DateOfBirth> [facility] < ServiceDate>12/11/16</ServiceDate> <MNE>ESINDI</MNE> <OrderingPhy>Mukesh Nicole M.D.</OrderingPhy> <OrderingPhyMNE>f rep ord dr fish</OrderingPhyMNE> < DictatingPhyMNE>f rep dict dr fish</DictatingPhyMNE> <CCListMNE>f rep ct mne</ CCListMNE> <AdmittingPhyMNE>f pt admit dr fish</AdmittingPhyMNE> <AttendingPhyMNE >f pt attend dr fish</AttendingPhyMNE> <ConsultingPhyMNE>f pt consult dr fish</ConsultingPhyMNE> <FamilyPhyMNE>f pt fam dr fish</FamilyPhyMNE> <OtherPhyMNE>f pt other dr fish</OtherPhyMNE> < PrimaryPhyMNE>f pt prim care dr fish</PrimaryPhyMNE> <ReferringPhyMNE>f pt referring dr fish</ReferringPhyMNE> Patient Name: JOHNNY LEWIS Unit Number: [id number] Dictated: 12/11/161426 Transcribed: 12/11/161426 [facility] Printed Date/Time: [~ rep prt dt]/[~ rep prt tm] [~ rep ct labl] - [~ rep ct ivnm] [facility] [place] [address] Dictated: 12/11/161426 Transcribed: 12/11/161426 [facility] Printed Date/Time: [~ rep prt dt]/[~ rep prt tm] [~ rep ct labl] - [~ rep ct ivnm] RIGHT ANKLE MIN 3 VIEWS ROUTINE CLINICAL HISTORY: pain, right Right pain COMPARISON: None. DISCUSSION: Generalized soft tissue edema. No well-defined acute bony abnormality. Soft tissue vascular and or synovial calcifications. Considerable degenerative change of the intertarsal as well as tarsometatarsal region. IMPRESSION: Soft tissue edema. Degenerative change. Electronically signed by: Jeff Dupree M.D. 12/11/2016 2:28 PM Dictated Date/Time: 12/11/2016 2:27 PM The status of this report is Signed. Draft = Not yet reviewed or approved by Radiologist. Signed = Reviewed and approved by Radiologist. <AttendingPhy></AttendingPhy> <FamilyPhy>Mil Durand M.D.</FamilyPhy> < PrimaryPhy>Mil Durand M.D.</PrimaryPhy> <UnitNumber>[id number]</ UnitNumber> <VisitNumber>[id number]</VisitNumber> <PatientName>JOHNNY LEWIS</ PatientName> <DateOfBirth>1930</DateOfBirth> <Location>[facility]</Location> < ServiceDate>12/11/16</ServiceDate> <MNE>ESINDI</MNE> <OrderingPhy>Mukesh Nicole M.D.</OrderingPhy> <OrderingPhyMNE>f rep ord dr fish</OrderingPhyMNE> < DictatingPhyMNE>f rep dict dr fish</DictatingPhyMNE> <CCListMNE>f rep ct mne</ CCListMNE> <AdmittingPhyMNE>f pt admit dr fish</AdmittingPhyMNE> <AttendingPhyMNE >f pt attend dr fish</AttendingPhyMNE> <ConsultingPhyMNE>f pt consult dr fish</ConsultingPhyMNE> <FamilyPhyMNE>f pt fam dr fish</FamilyPhyMNE> <OtherPhyMNE>f pt other dr fish</OtherPhyMNE> < PrimaryPhyMNE>f pt prim care dr fish</PrimaryPhyMNE> <ReferringPhyMNE>f pt referring dr fish</ReferringPhyMNE> Patient Name: JOHNNY LEWIS Unit Number: [id number] Dictated: 12/11/161648 Transcribed: 12/11/161648 [facility] Printed Date/Time: [~ rep prt dt]/[~ rep prt tm] [~ rep ct labl] - [~ rep ct ivnm] [facility] [place] [address] Dictated: 12/11/161648 Transcribed: 12/11/161648 [facility] Printed Date/Time: [~ rep prt dt]/[~ rep prt tm] [~ rep ct labl] - [~ rep ct ivnm] [~ rep ct add3]] ABDOMEN AND PELVIS CT WITHOUT CONTRAST CT DOSE: 1226.06 mGy.cm HISTORY: EVALUATE FLANK PAIN/HEMATURIA TECHNIQUE: Multiaxial CT images of the abdomen and pelvis were performed without the use of intravenous and oral contrast according to the standard department stone protocol. COMPARISON STUDY: Abdomen and pelvis CT 11/04/2016. FINDINGS: Mild bibasilar subsegmental atelectasis. No pneumoperitoneum. No pneumatosis. Old, healed left inferior pubic fracture. Small fat-containing supraumbilical hernia and small fat fat-containing umbilical hernia remain unchanged. Small fat-containing right inguinal hernia. Multiple calcified granulomas seen within the liver and spleen. Cholecystectomy. Normal adrenal glands. Stable 1 cm cystic lesion at the tail the pancreas. This favors a small cystic neoplasm such as a side branch intraductal papillary mucinous neoplasm. No retroperitoneal lymphadenopathy. Normal bladder. No hydronephrosis. Stable septated cystic lesion along the left side of the vaginal cuff. This measures 4.5 cm. This could be associated with the left ovary if the left ovary is present. Multiple sigmoid diverticula. Mild thickening and adjacent to a distal sigmoid diverticulum is stable to slightly progressed from the prior study. No evidence for bowel obstruction. IMPRESSION: 1. No renal stones or hydronephrosis. 2. Mild soft tissue thickening adjacent to multiple distal sigmoid colonic diverticula. This is stable to slightly progressed compared to the prior study. This may represent a mild acute on chronic diverticulitis. 3. No change in the septated cystic lesion along the left side of the vaginal cuff. This could be associated with the left ovary if present. This could be due to postoperative change or a cystic ovarian neoplasm. Gynecologic nonemergent consultation is recommended. 4. Small ventral hernias remain unchanged. 5. Prior cholecystectomy. 6. Stable 1 cm cystic lesion within the tail of the pancreas. Electronically signed by: Segundo Silveira M.D. 12/11/2016 5:00 PM Dictated Date/Time: 12/11/2016 4:49 PM The status of this report is Signed. Draft = Not yet reviewed or approved by Radiologist. Signed = Reviewed and approved by Radiologist. <AttendingPhy></AttendingPhy> <FamilyPhy>Mil Durand M.D.</FamilyPhy> < PrimaryPhy>Mil Durand M.D.</PrimaryPhy> <UnitNumber>[id number]</ UnitNumber> <VisitNumber>[id number]</VisitNumber> <PatientName>JOHNNY LEWIS</ PatientName> <DateOfBirth>1930</DateOfBirth> <Location[facility]</Location> < ServiceDate>12/11/16</ServiceDate> <MNE>ESINDI</MNE> <OrderingPhy>Mukesh Nicole M.D.</OrderingPhy> <OrderingPhyMNE>f rep ord dr fish</OrderingPhyMNE> < DictatingPhyMNE>f rep dict dr fish</DictatingPhyMNE> <CCListMNE>f rep ct abe</ CCListMNE> <AdmittingPhyMNE>f pt admit dr fish</AdmittingPhyMNE> <AttendingPhyMNE >f pt attend dr fish</AttendingPhyMNE> <ConsultingPhyMNE>f pt consult dr fish</ConsultingPhyMNE> <FamilyPhyMNE>f pt fam dr fish</FamilyPhyMNE> <OtherPhyMNE>f pt other dr fish</OtherPhyMNE> < PrimaryPhyMNE>f pt prim care dr fish</PrimaryPhyMNE> <ReferringPhyMNE>f pt referring dr fish</ReferringPhyMNE> EKG EKG shows sinus bradycardia at 59 bpm, with 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 Impression Assessment and Plan Right lower extremity cellulitis, with allergy to vancomycin, sulfa, penicillins and erythromycins--the patient will be admitted to the medical surgical floor. She'll be placed on daptomycin 350 mg IV daily. We'll consult wound care regarding changing dressing on left lower extremity. Chronic kidney disease/Acute renal failure--creatinine upon admission was 5.10 and potassium was 5.6. We will hold bumetanide 1 mg by mouth twice a day and potassium chloride ER 10 mg by mouth every morning. Place on normal saline at 100 ML's per hour. We'll follow serial BMP and magnesium levels in the a.m.. We'll consult her protector plate attacher Dr. Bojorquez. Hypertension--continue carvedilol 9.375 mg by mouth twice a day and aspirin 81 mg by mouth every morning. Hypothyroidism--continue levothyroxine sodium 50 g by mouth every morning. Parkinsonism--continue carbidopa/levodopa 25/100 one by mouth twice a day. COPD--continue Combivent restroom at 1 puff every 6 hours, and prednisone 5 mg by mouth every morning will be increased to 10 mg. History of C. difficile colitis--place on floor next to 4 tabs by mouth 4 times a day. Next GERD--continue pantoprazole 40 mg by mouth every morning. Level of Care Med/Surg Advanced Directives Existing Advance Directive: No Existing Living Will: No Existing Power of Business Analyst Consultant: No Resuscitation Status FULL RESUSCITATION VTE Prophylaxis VTE Risk Assessment Done? Y/N: Yes Risk Level: Moderate Given or contraindicated: SCD's Social Service Consult None Apply
[2016-12-11 20:03] VITALS: BP 102/48; PULSE 62; TEMP 36.8; O2SAT 99
[2016-12-11 20:06] LABS: URINE APPEARANCE CLEAR (CLEAR); URINE BILIRUBIN NEG (NEG); URINE COLOR YELLOW; URINE NITRITE NEG (NEG); URINE SPECIFIC GRAVITY 1.007 (1.000-1.030); UROBILINOGEN NEG (NEG); ZZURINE CULT IF INDIC CATH NO
[2016-12-11 20:13] LABS: MANUAL MICROSCOPIC REQUIRED? NO; REVIEW REQ? NO
[2016-12-11] MEDS: AMMONIUM LACTATE 12% LOTION 225 GM BTL EXT SCH (21:00)
[2016-12-11] MEDS: DOCUSATE SODIUM 100 MG CAP PO SCH (21:00)
[2016-12-11] MEDS: CEROVITE ADV FORMULA TAB PO SCH (21:02)
[2016-12-11] MEDS: CARVEDILOL 3.125 MG TAB PO SCH (21:02)
[2016-12-11] MEDS: CARBIDOPA/LEVODOPA 25/100MG TAB PO SCH (21:02)
[2016-12-11] MEDS: CHOLECALCIFEROL 1000 INTER.UNIT TAB PO SCH (21:03)
[2016-12-12] VITALS: PULSE 76; TEMP 36.7; O2SAT 91
[2016-12-12] MEDS: LEVOTHYROXINE 50 MCG TAB PO SCH (06:10)
[2016-12-12] MEDS: PANTOprazole SOD 40 MG TAB PO SCH (06:11)
[2016-12-12 07:33] VITALS: PULSE 70; TEMP 36.4; O2SAT 96
[2016-12-12] MEDS: IPRATROPIUM BROMIDE/ALBUTEROL respimat INH INH SCH ×4 (08:00→20:00)
[2016-12-12 08:04] LABS: BASO % 0.5 %; BASO ABS # 0.04 K/uL (0-0.2); COMPLETE YES; EOS % 2.4 %; HEMATOCRIT 32.5 % (37-47); IG% 1.1 %; LYMPH % 12.4 %; LYMPH ABS # 0.93 K/uL (1.2-3.4); MEAN CELL VOLUME 97.3 fL (80-100); MEAN CORPUSCULAR HEMOGLOBIN 30.5 pg (25-34); MEAN CORPUSCULAR HGB CONC 31.4 g/dl (32-36); MEAN PLATELET VOLUME 9.5 fL (7.4-10.4); MONO % 14.2 %; NEUT % 69.4 %; PLATELET COUNT 249 K/uL (130-400); RED BLOOD COUNT 3.34 M/uL (4.2-5.4); WHITE BLOOD COUNT 7.47 K/uL (4.8-10.8)
[2016-12-12] MEDS: ASPIRIN 81 MG ECTAB PO SCH (08:16)
[2016-12-12] MEDS: DOCUSATE SODIUM 100 MG CAP PO SCH ×2 (08:16→20:19)
[2016-12-12] MEDS: LACTOBACILLUS ACIDOPHILUS (FLORANEX) TAB PO SCH ×3 (08:16→20:17)
[2016-12-12] MEDS: CARBIDOPA/LEVODOPA 25/100MG TAB PO SCH ×2 (08:16→20:20)
[2016-12-12] MEDS: CARVEDILOL 3.125 MG TAB PO SCH ×2 (08:17→20:20)
[2016-12-12] MEDS: AMMONIUM LACTATE 12% LOTION 225 GM BTL EXT SCH ×3 (08:17→20:18)
[2016-12-12 08:50] LABS: BUN/CREATININE RATIO 11.3 (10-20); CALCIUM 8.9 mg/dl (8.5-10.1); CREATININE 4.8 mg/dl (0.60-1.20); FERRITIN 108.6 ng/ml (8.0-388.0); MAGNESIUM 2.8 mg/dl (1.8-2.4); PHOSPHORUS 5.5 mg/dl (2.5-4.9); POTASSIUM 5.4 mmol/L (3.5-5.1)
--- NOTE | 2016-12-12 10:19 | Medical Consult ---
Consultation Date of Consultation: Dec 12, 2016. Attending Physician: Anabel Jennings M.D. Reason for Consultation: Cellulitis, allergy to penicillin and vancomycin History of Present Illness 86-year-old female with history of chronic lower extremity edema, chronic kidney disease, with recent hospitalization with diarrhea and abdominal pain, found to have C difficile colitis, treated with metronidazole. Also with renal insufficiency which responded to fluids and treatment of C diff. She has now been readmitted with several days of worsening nausea, vomiting, and abdominal pain. She has also had progressively worsening pain and redness involving her right foot and ankle. No report of significant fever. She came to the emergency department where she was found to have right lower extremity cellulitis. Also found to have acute kidney injury with creatinine greater than 5. She has been started on daptomycin IV . States pain and redness about the same this morning. Currently afebrile and tolerating daptomycin without apparent difficulty. Past Medical/Surgical History Medical Problems: (1) Acute electrocardiogram changes Status: Acute (2) ARF (acute renal failure) Status: Acute (3) Bronchitis Status: Acute (4) Cellulitis Status: Acute (5) Cellulitis of right leg Status: Acute (6) Distal radius fracture, left Status: Acute (7) Encounter for wound re-check Status: Acute (8) Failure to thrive Status: Acute (9) Fluid overload Status: Acute (10) General weakness Status: Acute (11) Ileus Status: Acute (12) Left radial head fracture Status: Acute (13) Lower extremity edema Status: Acute (14) Swelling of left extremity Status: Acute (15) Traumatic ecchymosis of left lower leg Status: Acute (16) Vomiting Status: Acute (17) Weakness Status: Acute Medical Problems: (1) abdominal pain (2) Asthma (3) C. difficile diarrhea (4) Chronic kidney disease (5) COPD exacerbation (6) Dyspnea (7) Hypertension (8) Left leg cellulitis Surgical Problems: (1) S/P appendectomy (2) S/P cholecystectomy Family History FH: heart disease Hypertension Kidney disease Kidney stones Social History Smoking Status: Former Smoker Smokeless Tobacco Use: No Alcohol Use: none Drug Use: none Marital Status: Housing Status: lives with family Occupation Status: retired Allergies Coded Allergies: Codeine (Verified Allergy, Mild, 12/11/16) Penicillins (Verified Allergy, Mild, ., 12/11/16) tolerated cefepime Banana (Verified Allergy, Unknown, GI symptoms, 12/11/16) Erythromycin (Verified Allergy, Unknown, ., 12/11/16) Sulfa Antibiotics (Verified Allergy, Unknown, Unknown, 12/11/16) Vancomycin (Verified Allergy, Unknown, ., 12/11/16) Cantaloupe (Verified Adverse Reaction, Unknown, GI SYMPTOMS FROM UNSPECIFIED MELONS, 12/11/16) Current Inpatient Medications Current Inpatient Medications Medications (Trade) Dose Ordered Sig/Zack Route Start Time Stop Time Status Last Admin Dose Admin Acetaminophen (Tylenol Tab) 650 mg Q4H PRN PO 12/11/16 18:45 01/10/17 18:44 Zolpidem Tartrate (Ambien Tab) 5 mg HSZ PRN PO 12/11/16 18:45 01/10/17 18:44 Aspirin (Ecotrin Tab) 81 mg QAM PO 12/12/16 08:00 01/11/17 08:59 12/12/16 08:16 81 MG Carbidopa/Levodopa (Sinemet 25/ 100MG Tab) 1 tab BID PO 12/11/16 20:00 01/10/17 20:59 12/12/16 08:16 1 TAB Carvedilol (Coreg Tab) 9.375 mg BID PO 12/11/16 20:00 01/10/17 20:59 12/12/16 08:17 9.375 MG Cholecalciferol (Vitamin D Tab) 1,000 inter.unit QPM PO 12/11/16 21:00 01/10/17 20:59 12/11/16 21:03 1,000 INTER.UNIT Albuterol/ Ipratropium (Combivent Respimat Inh) 1 puffs QID INH 12/12/16 08:00 01/11/17 07:59 Levothyroxine Sodium (Synthroid Tab) 50 mcg DAILYBB PO 12/12/16 06:30 01/11/17 06:59 12/12/16 06:10 50 MCG Morphine Sulfate (MoRPHine SULFATE IR TAB) 22.5 mg TID PRN PO 12/11/16 18:45 12/25/16 18:44 Multivitamins/ Minerals (Multivitamin W/ Minerals Tab) 1 tab QPM PO 12/11/16 21:00 01/10/17 20:59 12/11/16 21:02 1 TAB Pantoprazole Sodium (Protonix Tab) 40 mg QAM PO 12/12/16 08:00 01/11/17 08:59 12/12/16 06:11 40 MG Prednisone (PredniSONE TAB) 10 mg QAM PO 12/12/16 08:00 01/11/17 08:59 12/12/16 08:16 10 MG Ammonium Lactate (Lac-Hydrin) 1 appl BID EXT 12/11/16 20:00 01/10/17 20:59 12/12/16 08:17 1 APPL Lactobacillus Acidophilus (Floranex Tab) 4 tab TIDM PO 12/12/16 08:00 01/11/17 07:59 12/12/16 08:16 4 TAB Lorazepam (Ativan Inj) 0.5 mg Q4H PRN IV 12/11/16 18:45 01/10/17 18:44 Magnesium Hydroxide (Milk Of Magnesia Susp) 30 ml Q6H PRN PO 12/11/16 18:45 01/10/17 18:44 Bisacodyl (Dulcolax Supp) 10 mg DAILY PRN SC 12/11/16 18:45 01/10/17 18:44 Diphenhydramine HCl (Benadryl Inj) 25 mg Q4H PRN IV 12/11/16 18:45 01/10/17 18:44 Al Hydrox/Mg Hydrox/ Simethicone 15 ml 15 ml Q4H PRN PO 12/11/16 18:45 01/10/17 18:44 Promethazine HCl/ Sodium Chloride (Phenergan Inj/ Nss 50ml) 50.5 ml @ 202 mls/hr Q4H PRN IV 12/11/16 18:45 01/10/17 18:44 Ondansetron HCl (Zofran Inj) 4 mg Q6H PRN IV 12/11/16 18:45 01/10/17 18:44 Docusate Sodium (coLACE CAP) 100 mg BID PO 12/11/16 20:00 01/10/17 20:59 12/12/16 08:16 100 MG Morphine Sulfate 2 mg 2 mg Q2H PRN IV 12/11/16 18:45 12/25/16 18:44 12/11/16 22:21 2 MG Daptomycin/Sodium Chloride (Cubicin IV/Nss 50ml) 57 ml @ 100 mls/hr Q2D@1500 IV 12/13/16 15:00 12/22/16 14:59 Review of Systems Constitutional: + weakness, No fever Eyes: No problem reported ENT: No problem reported Respiratory: No problem reported Cardiovascular: No problem reported Abdomen: + nausea, + vomiting, No diarrhea Musculoskeletal: No problem reported Genitourinary - Female: No problem reported Neurologic: No problem reported Endocrine: No problem reported Hematologic / Lymphatic: No problem reported Integumentary: + new/changing skin lesions Allergic / Immunologic: No problem reported Physical Exam Date Time Temp Pulse Resp B/P Pulse Ox O2 Delivery O2 Flow Rate FiO2 12/12/16 07:45 Room Air 12/12/16 07:33 36.4 70 18 96 Room Air 12/12/16 00:01 Room Air 12/12/16 00:00 36.7 76 18 91 Room Air 12/11/16 20:03 36.8 62 20 102/48 99 Nasal Cannula 2.0 12/11/16 18:45 96 Room Air 12/11/16 15:12 67 16 117/63 96 12/11/16 12:32 55 12/11/16 12:18 36.5 64 23 110/55 94 Room Air General Appearance: WD/WN, no apparent distress Head: normocephalic, atraumatic Eyes: normal inspection, EOMI, sclerae normal ENT: normal ENT inspection, pharynx normal Neck: supple, no adenopathy, thyroid normal, trachea midline Respiratory/Chest: chest non-tender, lungs clear, normal breath sounds, no respiratory distress Cardiovascular: regular rate, rhythm, no gallop, no murmur Abdomen/GI: normal bowel sounds, non tender, soft, no organomegaly Back: normal inspection, no CVA tenderness Extremities/Musculoskelatal: no calf tenderness, normal capillary refill, + inflammation (Right leg from banda to foot), + swelling Neurologic/Psych: alert, oriented x 3 Skin: normal color, no rash, + pertinent finding (Cellulitis involving the right lower extremity from the dorsum of the foot to the mid banda) Laboratory Results Date/Time Source Procedure Growth Status 12/11/16 14:59 Blood Blood Culture Pending Received 12/11/16 14:00 Blood Blood Culture Pending Received Last 24 Hours Test 12/11/16 14:59 12/11/16 19:45 12/12/16 07:15 12/12/16 09:06 White Blood Count 9.32 K/uL 7.47 K/uL Red Blood Count 3.61 M/uL 3.34 M/uL Hemoglobin 10.8 g/dL 10.2 g/dL Hematocrit 34.2 % 32.5 % Mean Corpuscular Volume 94.7 fL 97.3 fL Mean Corpuscular Hemoglobin 29.9 pg 30.5 pg Mean Corpuscular Hemoglobin Concent 31.6 g/dl 31.4 g/dl Platelet Count 236 K/uL 249 K/uL Mean Platelet Volume 9.5 fL 9.5 fL Neutrophils (%) (Auto) 73.4 % 69.4 % Lymphocytes (%) (Auto) 12.2 % 12.4 % Monocytes (%) (Auto) 11.3 % 14.2 % Eosinophils (%) (Auto) 1.8 % 2.4 % Basophils (%) (Auto) 0.2 % 0.5 % Neutrophils # (Auto) 6.84 K/uL 5.18 K/uL Lymphocytes # (Auto) 1.14 K/uL 0.93 K/uL Monocytes # (Auto) 1.05 K/uL 1.06 K/uL Eosinophils # (Auto) 0.17 K/uL 0.18 K/uL Basophils # (Auto) 0.02 K/uL 0.04 K/uL RDW Standard Deviation 49.9 fL 51.9 fL RDW Coefficient of Variation 14.4 % 14.5 % Immature Granulocyte % (Auto) 1.1 % 1.1 % Immature Granulocyte # (Auto) 0.10 K/uL 0.08 K/uL Prothrombin Time 9.8 SECONDS Prothromb Time International Ratio 0.9 Activated Partial Thromboplast Time 21.9 SECONDS Partial Thromboplastin Ratio 0.8 Sodium Level 135 mmol/L 137 mmol/L Potassium Level 5.6 mmol/L 5.4 mmol/L Chloride Level 96 mmol/L 99 mmol/L Carbon Dioxide Level 27 mmol/L 22 mmol/L Anion Gap 12.0 mmol/L 16.0 mmol/L Blood Urea Nitrogen 55 mg/dl 54 mg/dl Creatinine 5.10 mg/dl 4.80 mg/dl Est Creatinine Clear Calc Drug Dose 5.6 ml/min 6.0 ml/min Estimated GFR () 8.2 8.9 Estimated GFR (Non- 7.1 7.7 BUN/Creatinine Ratio 10.7 11.3 Random Glucose 84 mg/dl 47 mg/dl Lactic Acid Level 0.8 mmol/L Calcium Level 9.1 mg/dl 8.9 mg/dl Total Bilirubin 0.8 mg/dl Aspartate Amino Transf (AST/SGOT) 26 U/L Alanine Aminotransferase (ALT/SGPT) < 6 U/L Alkaline Phosphatase 42 U/L Total Protein 6.3 gm/dl Albumin 2.9 gm/dl Globulin 3.4 gm/dl Albumin/Globulin Ratio 0.9 Urine Color YELLOW Urine Appearance CLEAR Urine pH 5.0 Urine Specific [place] 1.007 Urine Protein NEG Urine Glucose (UA) NEG Urine Ketones NEG Urine Occult Blood NEG Urine Nitrite NEG Urine Bilirubin NEG Urine Urobilinogen NEG Urine Leukocyte Esterase NEG Phosphorus Level 5.5 mg/dl Magnesium Level 2.8 mg/dl Iron Level 22 mcg/dl Total Iron Binding Capacity 241 mcg/dl Transferrin 185 mg/dl Transferrin % Saturation 8 % Ferritin 108.6 ng/ml Bedside Glucose 89 mg/dl RIGHT ANKLE MIN 3 VIEWS ROUTINE CLINICAL HISTORY: pain, right Right pain COMPARISON: None. DISCUSSION: Generalized soft tissue edema. No well-defined acute bony abnormality. Soft tissue vascular and or synovial calcifications. Considerable degenerative change of the intertarsal as well as tarsometatarsal region. IMPRESSION: Soft tissue edema. Degenerative change. Electronically signed by: Jeff Dupree M.D. 12/11/2016 2:28 PM Dictated Date/Time: 12/11/2016 2:27 PM The status of this report is Signed. Draft = Not yet reviewed or approved by Radiologist. Signed = Reviewed and approved by Radiologist. <AttendingPhy></AttendingPhy> <FamilyPhy>Mil Durand M.D.</FamilyPhy> < PrimaryPhy>Mil Durand M.D.</PrimaryPhy> <UnitNumber>[id number]</ UnitNumber> <VisitNumber>[id number]</VisitNumber> <PatientName>LEWIS,EULA</ PatientName> <DateOfBirth>1930</DateOfBirth> <Location>[facility]</Location> < ServiceDate>12/11/16</ServiceDate> <MNE>ESINDI</MNE> <OrderingPhy>Mukesh Nicole M.D.</OrderingPhy> <OrderingPhyMNE>f rep ord dr fish</OrderingPhyMNE> < DictatingPhyMNE>f rep dict dr fish</DictatingPhyMNE> <CCListMNE>f rep ct mne</ CCListMNE> <AdmittingPhyMNE>f pt admit dr fish</AdmittingPhyMNE> <AttendingPhyMNE >f pt attend dr fish</AttendingPhyMNE> <ConsultingPhyMNE>f pt consult dr fish</ConsultingPhyMNE> <FamilyPhyMNE>f pt fam dr fish</FamilyPhyMNE> <OtherPhyMNE> Assessment & Plan Patient with right lower extremity cellulitis in the setting of chronic lymphedema, as well as acute kidney injury, and recent C difficile infection. Given allergies to penicillin and vancomycin, daptomycin appropriate therapy with dose adjusted for renal insufficiency. Patient without significant diarrhea at present, and daptomycin not usually associated with C difficile infection.length of IV antibiotics will be determined by clinical response. Will follow.
--- NOTE | 2016-12-12 10:47 | Clinical Documentation Query ---
[facility] : CLINICAL DOCUMENTATION QUERY Patient is an 86 year old female admitted with KOREY and right lower extremity cellulitis. H&P documentation includes "chronic kidney disease", not otherwise specified. Estimated GFR range dating back to 12/29/15 is 22-37 ml/min. Please clarify as clinically appropriate. Thank you . In your clinical opinion is this patient being managed for: ( x ) Chronic kidney disease, stage 3-4 ( ) Other explanation of clinical findings (Please Explain) ( ) Unable to determine (Please Define) ( ) Need to Discuss ( ) Not Agree The medical record reflects the following clinical findings, treatment, and risk factors. Clinical Indicators: As above Treatment: IVF, serial chemistries, nephrology consultation Risk Factors: Age, hypertenion Please clarify and document your clinical opinion in the progress notes and discharge summary. Terms such as "probable", "suspected", "likely", "questionable", "possible", or "still to be ruled out" are acceptable. IF IN AGREEMENT, YOU MUST DOCUMENT ABOVE DIAGNOSTIC STATEMENT IN DAILY PROGRESS NOTES AND DISCHARGE SUMMARY. This document is not part of the patient's record. Thank You, Cosme Washington, RN [phone]
--- NOTE | 2016-12-12 10:47 | Clinical Documentation Query ---
Dr. [facility] : CLINICAL DOCUMENTATION QUERY Patient is an 86 year old female admitted with KOREY and right lower extremity cellulitis. H&P documentation includes "chronic kidney disease", not otherwise specified. Estimated GFR range dating back to 12/29/15 is 22-37 ml/min. Please clarify as clinically appropriate. Thank you . In your clinical opinion is this patient being managed for: (x ) Chronic kidney disease, stage 3-4 ( ) Other explanation of clinical findings (Please Explain) ( ) Unable to determine (Please Define) ( ) Need to Discuss ( ) Not Agree The medical record reflects the following clinical findings, treatment, and risk factors. Clinical Indicators: As above Treatment: IVF, serial chemistries, nephrology consultation Risk Factors: Age, hypertenion Please clarify and document your clinical opinion in the progress notes and discharge summary. Terms such as "probable", "suspected", "likely", "questionable", "possible", or "still to be ruled out" are acceptable. IF IN AGREEMENT, YOU MUST DOCUMENT ABOVE DIAGNOSTIC STATEMENT IN DAILY PROGRESS NOTES AND DISCHARGE SUMMARY. This document is not part of the patient's record. Thank You, Cosme Washington, RN [phone]
--- NOTE | 2016-12-12 11:30 | Family Medicine Progress Note ---
Progress Note Date of Service Dec 12, 2016. Subjective Pt evaluation today including: conversation w/ patient, physical exam [place] well today, but reports her legs do hurt and they have for a while. Reports her PCP told her to come into the hospital earlier but she did not want to. Denies any diarrhea. Constitutional: No chills, No fever, No sweats, No weakness, No weight loss ENT: No hearing loss Respiratory: No cough, No shortness of breath, No sputum, No wheezing Cardiovascular: No chest pain Abdomen: No nausea, No pain Heme: + abnormal bleeding/bruising Endo: No fatigue All Other Systems: Reviewed and Negative Medications Current Inpatient Medications Medications (Trade) Dose Ordered Sig/Zack Route Start Time Stop Time Status Last Admin Dose Admin Acetaminophen (Tylenol Tab) 650 mg Q4H PRN PO 12/11/16 18:45 01/10/17 18:44 Zolpidem Tartrate (Ambien Tab) 5 mg HSZ PRN PO 12/11/16 18:45 01/10/17 18:44 Aspirin (Ecotrin Tab) 81 mg QAM PO 12/12/16 08:00 01/11/17 08:59 12/12/16 08:16 81 MG Carbidopa/Levodopa (Sinemet 25/ 100MG Tab) 1 tab BID PO 12/11/16 20:00 01/10/17 20:59 12/12/16 08:16 1 TAB Carvedilol (Coreg Tab) 9.375 mg BID PO 12/11/16 20:00 01/10/17 20:59 12/12/16 08:17 9.375 MG Cholecalciferol (Vitamin D Tab) 1,000 inter.unit QPM PO 12/11/16 21:00 01/10/17 20:59 12/11/16 21:03 1,000 INTER.UNIT Albuterol/ Ipratropium (Combivent Respimat Inh) 1 puffs QID INH 12/12/16 08:00 01/11/17 07:59 Levothyroxine Sodium (Synthroid Tab) 50 mcg DAILYBB PO 12/12/16 06:30 01/11/17 06:59 12/12/16 06:10 50 MCG Morphine Sulfate (MoRPHine SULFATE IR TAB) 22.5 mg TID PRN PO 12/11/16 18:45 12/25/16 18:44 Multivitamins/ Minerals (Multivitamin W/ Minerals Tab) 1 tab QPM PO 12/11/16 21:00 01/10/17 20:59 12/11/16 21:02 1 TAB Pantoprazole Sodium (Protonix Tab) 40 mg QAM PO 12/12/16 08:00 01/11/17 08:59 12/12/16 06:11 40 MG Prednisone (PredniSONE TAB) 10 mg QAM PO 12/12/16 08:00 01/11/17 08:59 12/12/16 08:16 10 MG Ammonium Lactate (Lac-Hydrin) 1 appl BID EXT 12/11/16 20:00 01/10/17 20:59 12/11/16 21:00 1 APPL Lactobacillus Acidophilus (Floranex Tab) 4 tab TIDM PO 12/12/16 08:00 01/11/17 07:59 12/12/16 12:38 4 TAB Lorazepam (Ativan Inj) 0.5 mg Q4H PRN IV 12/11/16 18:45 01/10/17 18:44 Magnesium Hydroxide (Milk Of Magnesia Susp) 30 ml Q6H PRN PO 12/11/16 18:45 01/10/17 18:44 Bisacodyl (Dulcolax Supp) 10 mg DAILY PRN NC 12/11/16 18:45 01/10/17 18:44 Diphenhydramine HCl (Benadryl Inj) 25 mg Q4H PRN IV 12/11/16 18:45 01/10/17 18:44 Al Hydrox/Mg Hydrox/ Simethicone 15 ml 15 ml Q4H PRN PO 12/11/16 18:45 01/10/17 18:44 Promethazine HCl/ Sodium Chloride (Phenergan Inj/ Nss 50ml) 50.5 ml @ 202 mls/hr Q4H PRN IV 12/11/16 18:45 01/10/17 18:44 Ondansetron HCl (Zofran Inj) 4 mg Q6H PRN IV 12/11/16 18:45 01/10/17 18:44 Docusate Sodium (coLACE CAP) 100 mg BID PO 12/11/16 20:00 01/10/17 20:59 12/12/16 08:16 100 MG Morphine Sulfate 2 mg 2 mg Q2H PRN IV 12/11/16 18:45 12/25/16 18:44 12/11/16 22:21 2 MG Daptomycin/Sodium Chloride (Cubicin IV/Nss 50ml) 57 ml @ 100 mls/hr Q2D IV 12/13/16 15:00 12/14/16 14:59 Objective Vital Signs Date Time Temp Pulse Resp B/P Pulse Ox O2 Delivery O2 Flow Rate FiO2 12/12/16 07:45 Room Air 12/12/16 07:33 36.4 70 18 96 Room Air 12/12/16 00:01 Room Air 12/12/16 00:00 36.7 76 18 91 Room Air 12/11/16 20:03 36.8 62 20 102/48 99 Nasal Cannula 2.0 12/11/16 18:45 96 Room Air Physical Exam General Appearance: WD/WN, no apparent distress Eyes: normal inspection, PERRL ENT: hearing grossly normal Neck: supple, no JVD Respiratory/Chest: lungs clear, normal breath sounds, no respiratory distress Cardiovascular: regular rate, rhythm, no murmur Abdomen: normal bowel sounds, non tender, soft Extremities: + pedal edema (blistering over legs, tender to palpation anteriorly) Neurologic/Psychiatric: alert, + pertinent finding (pressured speech) Laboratory Results Last 24 Hours Test 12/11/16 19:45 12/12/16 07:15 12/12/16 09:06 Urine Color YELLOW Urine Appearance CLEAR Urine pH 5.0 Urine Specific [place] 1.007 Urine Protein NEG Urine Glucose (UA) NEG Urine Ketones NEG Urine Occult Blood NEG Urine Nitrite NEG Urine Bilirubin NEG Urine Urobilinogen NEG Urine Leukocyte Esterase NEG White Blood Count 7.47 K/uL Red Blood Count 3.34 M/uL Hemoglobin 10.2 g/dL Hematocrit 32.5 % Mean Corpuscular Volume 97.3 fL Mean Corpuscular Hemoglobin 30.5 pg Mean Corpuscular Hemoglobin Concent 31.4 g/dl Platelet Count 249 K/uL Mean Platelet Volume 9.5 fL Neutrophils (%) (Auto) 69.4 % Lymphocytes (%) (Auto) 12.4 % Monocytes (%) (Auto) 14.2 % Eosinophils (%) (Auto) 2.4 % Basophils (%) (Auto) 0.5 % Neutrophils # (Auto) 5.18 K/uL Lymphocytes # (Auto) 0.93 K/uL Monocytes # (Auto) 1.06 K/uL Eosinophils # (Auto) 0.18 K/uL Basophils # (Auto) 0.04 K/uL RDW Standard Deviation 51.9 fL RDW Coefficient of Variation 14.5 % Immature Granulocyte % (Auto) 1.1 % Immature Granulocyte # (Auto) 0.08 K/uL Sodium Level 137 mmol/L Potassium Level 5.4 mmol/L Chloride Level 99 mmol/L Carbon Dioxide Level 22 mmol/L Anion Gap 16.0 mmol/L Blood Urea Nitrogen 54 mg/dl Creatinine 4.80 mg/dl Est Creatinine Clear Calc Drug Dose 6.0 ml/min Estimated GFR () 8.9 Estimated GFR (Non- 7.7 BUN/Creatinine Ratio 11.3 Random Glucose 47 mg/dl Calcium Level 8.9 mg/dl Phosphorus Level 5.5 mg/dl Magnesium Level 2.8 mg/dl Iron Level 22 mcg/dl Total Iron Binding Capacity 241 mcg/dl Transferrin 185 mg/dl Transferrin % Saturation 8 % Ferritin 108.6 ng/ml Bedside Glucose 89 mg/dl Assessment and Plan 86 yo F with recent admission for C. 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 CT abdomen finding reviewed with radiology by Dr. Moffett. No concern of hydronephrosis - Avoid IVF - Kayexalate for elevated K >5.5 ?Right leg cellulitis/Venous stasis - ID consulted - Will continue Daptomycin for 1 more day - Elevate leg Blisters on leg - Reviewed by wound care - No KRYSTIAN stockings for now CAD - Continue Aspirin Chronic pain - Has morphine 2mg IV PRN - ?Med rec reports pt takes 22.5mg TID PRN Hypothyroidism - Continue levothyroxine 50mcg CODE STATUS: FULL (<- Discussed this with patient, she said would rather wait until more family is here to determine if she is a DNR) VTE: - Cannot use SCDs DISPO: Med surg Resident Tracking Resident Involvement: Resident Care Provided Care Provided: Adult [facility] Medicine Reviewed: Pt Seen/Exam by Me History no new concerns overnight. legs looks better Constitutional: denies: fever Respiratory: negative: short of breath Cardiovascular: denies chest pain Gastrointestinal/Abdominal: negative: abdominal pain General Appearance: no apparent distress Respiratory: lungs clear, no respiratory distress Cardiovascular: regular rate, rhythm Extremities: other (right leg - minimal erythema in feet. none in leg. venous stasis +. Clear fluid filled blister + anteriorly on right leg. ) Neurologic/Psychiatric: alert, oriented x 3 Skin Characteristics: warm/dry Assessment/Plan I have reviewed the medical record and performed a history and physical examination of this patient today. I have discussed the case with Dr Escudero. The above note reflects my findings, conclusions, and recommendations.
--- NOTE | 2016-12-12 12:42 | Nephrology Consultation ---
Nephrology Consultation Date & Providers Date of Consultation: Dec 12, 2016. Primary Care Provider: Mil Durand M.D. Referring Provider: Reason for Consultation Evaluation management for acute kidney injury and hyperkalemia with history of chronic kidney disease. History of Present Illness Marli Is a 86-year-old female with past medical history significant for stage 3/ 4 chronic kidney disease, recurrent history of acute kidney injury, hypertension , recent C diff infection admitted to the hospital with vomiting and volume depletion. Nephrologic consult was requested as she was found to have acute kidney injury on admission. Electronic medical records including labs and imaging are reviewed in detail during patient's visit. Marli has a stage 3/4 chronic kidney disease send baseline creatinine has been around 1.6-2.0, and she has history of recurrent acute kidney injury as recently as a few weeks ago when she was admitted to the hospital for C diff colitis. She was treated with IV hydration and acute kidney injury resolved plan on discharge her creatinine was at baseline. She was treated with metronidazole and her diarrhea resolved. Over last to 3 days she started having nausea and vomiting and she reports that she was unable to keep anything down due to the vomiting. She also reports decreased urine output over last few days. She also complains of right leg back specially right ankle swelling and tenderness which has been there for last few days, had an x-ray as an outpatient without any fracture. On arrival to the emergency room she was clinically found to be volume depleted and received IV hydration, she received at least 3 liters of IV fluid. Electrolyte panel showed a she had acute kidney injury, creatinine was 5.1 and was associated with hyperkalemia, potassium was 5.6. Urinalysis was negative for hematuria proteinuria, other than CT scan of abdomen and pelvis was negative for nephrolithiasis, renal mass or hydronephrosis. she has chronic lower extremity edema and was on Bumex 1 milligram twice a day at home which was on hold since admission. She denied any recent NSAID use. She has been on PPI for long-term for GERD. Nausea and vomiting seems to have resolved and did not have any further episode of vomiting since admission. Repeat lab this morning showed higher creatinine slightly improved to 4.8 and potassium was 5.4. Currently she is complaining of pain all over specially with any kind of movement. No shortness of breath, chest pain, fever, chills or diarrhea. She has been urinating since admission however exact amount is not clear. Allergies Coded Allergies: Codeine (Verified Allergy, Mild, 12/11/16) Penicillins (Verified Allergy, Mild, ., 12/11/16) tolerated cefepime Banana (Verified Allergy, Unknown, GI symptoms, 12/11/16) Erythromycin (Verified Allergy, Unknown, ., 12/11/16) Sulfa Antibiotics (Verified Allergy, Unknown, Unknown, 12/11/16) Vancomycin (Verified Allergy, Unknown, ., 12/11/16) Cantaloupe (Verified Adverse Reaction, Unknown, GI SYMPTOMS FROM UNSPECIFIED MELONS, 12/11/16) Inpatient Medications Current Inpatient Medications Medications (Trade) Dose Ordered Sig/Zack Route Start Time Stop Time Status Last Admin Dose Admin Acetaminophen (Tylenol Tab) 650 mg Q4H PRN PO 12/11/16 18:45 01/10/17 18:44 Zolpidem Tartrate (Ambien Tab) 5 mg HSZ PRN PO 12/11/16 18:45 01/10/17 18:44 Aspirin (Ecotrin Tab) 81 mg QAM PO 12/12/16 08:00 01/11/17 08:59 Carbidopa/Levodopa (Sinemet 25/ 100MG Tab) 1 tab BID PO 12/11/16 20:00 01/10/17 20:59 12/11/16 21:02 1 TAB Carvedilol (Coreg Tab) 9.375 mg BID PO 12/11/16 20:00 01/10/17 20:59 12/11/16 21:02 9.375 MG Cholecalciferol (Vitamin D Tab) 1,000 inter.unit QPM PO 12/11/16 21:00 01/10/17 20:59 12/11/16 21:03 1,000 INTER.UNIT Albuterol/ Ipratropium (Combivent Respimat Inh) 1 puffs QID INH 12/12/16 08:00 01/11/17 07:59 Levothyroxine Sodium (Synthroid Tab) 50 mcg DAILYBB PO 12/12/16 06:30 01/11/17 06:59 12/12/16 06:10 50 MCG Morphine Sulfate (MoRPHine SULFATE IR TAB) 22.5 mg TID PRN PO 12/11/16 18:45 12/25/16 18:44 Multivitamins/ Minerals (Multivitamin W/ Minerals Tab) 1 tab QPM PO 12/11/16 21:00 01/10/17 20:59 12/11/16 21:02 1 TAB Pantoprazole Sodium (Protonix Tab) 40 mg QAM PO 12/12/16 08:00 01/11/17 08:59 12/12/16 06:11 40 MG Prednisone (PredniSONE TAB) 10 mg QAM PO 12/12/16 08:00 01/11/17 08:59 Ammonium Lactate (Lac-Hydrin) 1 appl BID EXT 12/11/16 20:00 01/10/17 20:59 12/11/16 21:00 1 APPL Lactobacillus Acidophilus (Floranex Tab) 4 tab TIDM PO 12/12/16 08:00 01/11/17 07:59 Lorazepam (Ativan Inj) 0.5 mg Q4H PRN IV 12/11/16 18:45 01/10/17 18:44 Magnesium Hydroxide (Milk Of Magnesia Susp) 30 ml Q6H PRN PO 12/11/16 18:45 01/10/17 18:44 Bisacodyl (Dulcolax Supp) 10 mg DAILY PRN AR 12/11/16 18:45 01/10/17 18:44 Diphenhydramine HCl (Benadryl Inj) 25 mg Q4H PRN IV 12/11/16 18:45 01/10/17 18:44 Al Hydrox/Mg Hydrox/ Simethicone 15 ml 15 ml Q4H PRN PO 12/11/16 18:45 01/10/17 18:44 Promethazine HCl/ Sodium Chloride (Phenergan Inj/ Nss 50ml) 50.5 ml @ 202 mls/hr Q4H PRN IV 12/11/16 18:45 01/10/17 18:44 Ondansetron HCl (Zofran Inj) 4 mg Q6H PRN IV 12/11/16 18:45 01/10/17 18:44 Docusate Sodium (coLACE CAP) 100 mg BID PO 12/11/16 20:00 01/10/17 20:59 12/11/16 21:00 100 MG Morphine Sulfate 2 mg 2 mg Q2H PRN IV 12/11/16 18:45 12/25/16 18:44 12/11/16 22:21 2 MG Daptomycin/Sodium Chloride (Cubicin IV/Nss 50ml) 57 ml @ 100 mls/hr Q2D@1500 IV 12/13/16 15:00 12/22/16 14:59 Family History FH: heart disease Hypertension Kidney disease Kidney stones Social History Smoking Status: Former Smoker Smokeless Tobacco Use: No Alcohol Use: none Drug Use: none Marital Status: Housing Status: lives with family Occupation: retired Review of Systems A complete review of systems was performed. Pertinent positives are noted above. All other systems are negative. Physical Exam Date Time Temp Pulse Resp B/P Pulse Ox O2 Delivery O2 Flow Rate FiO2 12/12/16 07:45 Room Air 12/12/16 07:33 36.4 70 18 96 Room Air 12/12/16 00:01 Room Air 12/12/16 00:00 36.7 76 18 91 Room Air 12/11/16 20:03 36.8 62 20 102/48 99 Nasal Cannula 2.0 12/11/16 18:45 96 Room Air 12/11/16 15:12 67 16 117/63 96 12/11/16 12:32 55 12/11/16 12:18 36.5 64 23 110/55 94 Room Air GENERAL: Elderly female, AAA x 3, pleasant, ill-appearing, not in any distress. HEENT: Atraumatic, normocephalic. NECK: Supple, no JVD, no carotid bruit appreciated. ENT: No sinus tenderness MOUTH and THROAT: Moist oral mucosa, no oral ulcer or pharyngeal erythema RESPIRATORY: Normal breathing efforts, no accessory muscle use, clear to auscultation bilaterally, no wheezes or rales. CARDIOVASCULAR: S1, S2 normal, rate rhythm regular. ABDOMEN: Soft, nontender, positive bowel sound. MUSCULOSKELETAL: No joint swelling, erythema or tenderness. SKIN: No skin rash EXTREMITY: 2+ bilateral lower extremity edema and skin changes suggestive of chronic venous insufficiency. NEURO: No gross focal neurological deficit, speech fluent. PSYCHIATRY: Normal mood and judgment Laboratory Results Last 24 Hours Test 12/11/16 14:59 12/11/16 19:45 12/12/16 04:44 12/12/16 07:15 White Blood Count 9.32 K/uL Red Blood Count 3.61 M/uL Hemoglobin 10.8 g/dL Hematocrit 34.2 % Mean Corpuscular Volume 94.7 fL Mean Corpuscular Hemoglobin 29.9 pg Mean Corpuscular Hemoglobin Concent 31.6 g/dl Platelet Count 236 K/uL Mean Platelet Volume 9.5 fL Neutrophils (%) (Auto) 73.4 % Lymphocytes (%) (Auto) 12.2 % Monocytes (%) (Auto) 11.3 % Eosinophils (%) (Auto) 1.8 % Basophils (%) (Auto) 0.2 % Neutrophils # (Auto) 6.84 K/uL Lymphocytes # (Auto) 1.14 K/uL Monocytes # (Auto) 1.05 K/uL Eosinophils # (Auto) 0.17 K/uL Basophils # (Auto) 0.02 K/uL RDW Standard Deviation 49.9 fL RDW Coefficient of Variation 14.4 % Immature Granulocyte % (Auto) 1.1 % Immature Granulocyte # (Auto) 0.10 K/uL Prothrombin Time 9.8 SECONDS Prothromb Time International Ratio 0.9 Activated Partial Thromboplast Time 21.9 SECONDS Partial Thromboplastin Ratio 0.8 Sodium Level 135 mmol/L Potassium Level 5.6 mmol/L Chloride Level 96 mmol/L Carbon Dioxide Level 27 mmol/L Anion Gap 12.0 mmol/L Blood Urea Nitrogen 55 mg/dl Creatinine 5.10 mg/dl Est Creatinine Clear Calc Drug Dose 5.6 ml/min Estimated GFR () 8.2 Estimated GFR (Non- 7.1 BUN/Creatinine Ratio 10.7 Random Glucose 84 mg/dl Lactic Acid Level 0.8 mmol/L Calcium Level 9.1 mg/dl Total Bilirubin 0.8 mg/dl Aspartate Amino Transf (AST/SGOT) 26 U/L Alanine Aminotransferase (ALT/SGPT) < 6 U/L Alkaline Phosphatase 42 U/L Total Protein 6.3 gm/dl Albumin 2.9 gm/dl Globulin 3.4 gm/dl Albumin/Globulin Ratio 0.9 Urine Color YELLOW Urine Appearance CLEAR Urine pH 5.0 Urine Specific [place] 1.007 Urine Protein NEG Urine Glucose (UA) NEG Urine Ketones NEG Urine Occult Blood NEG Urine Nitrite NEG Urine Bilirubin NEG Urine Urobilinogen NEG Urine Leukocyte Esterase NEG Transferrin % Saturation % Impression (1) Acute kidney injury superimposed on chronic kidney disease (2) Hyperkalemia, diminished renal excretion (3) Cellulitis of right leg (4) Hypertension (5) Hyperphosphatemia Marli Is a 86-year-old female with past medical history of hypertension, stage 3/ 4 chronic kidney disease, baseline creatinine 1.6-2.0, history of recurrent acute kidney injury, recent C diff colitis admitted to the hospital with dehydration secondary to vomiting, acute kidney injury and right LE cellulitis. On admission creatinine was 5.1 and potassium was 5.6 which slightly improved to 4.8 and 5.4 respectively this morning. Urinalysis was negative for proteinuria or hematuria, CT scan abdomen pelvis negative for postrenal obstruction, renal mass or stone. Acute kidney injury most likely secondary to prerenal versus ATN in the setting of dehydration and concomitant use all of diuretics, however, renal function did not improve significantly with IV hydration. Although CT imaging showed fullness of renal pelvis bilaterally but after discussion with the radiologist over telephone radiologist did not feel there is any evidence of hydronephrosis. Currently electrolyte borderline, volume status and blood pressure stable. Started on daptomycin for right lower extremity cellulitis. Nausea vomiting currently resolved and did not have diarrhea. Recommendations --avoid further IV fluid as patient does not seem to be significantly volume depleted and the fact that she probably is not urinating a lot, received almost 3-4 liters since admission, there is risk of volume overload with continued IV fluid --with her history of recurrent acute kidney injury and chronic kidney disease she is at risk for rapid decline of renal function, currently creatinine stable and may slowly start to improve. There is no acute indication for renal replacement therapy --give Kayexalate 30 grams p.o. x1 dose prn for potassium above 5.5 --continue to hold Bumex for now --phosphate mildly elevated, will repeat tomorrow and if continues to be elevated will consider starting on phosphate binders Thank you for allowing me to participate in your patient's care. It was a pleasure to see Marli This chart was completed utilizing [employer] Speech and voice recognition software. Grammatical errors, random word insertions, pronoun errors and incomplete sentences are occasional consequences of this system. Any questions or concerns about the content, text or information contained within the body of this dictation should be addressed directly to the physician for clarification.
[2016-12-12 15:29] VITALS: PULSE 63; TEMP 36.8; O2SAT 94
[2016-12-12 15:48] VITALS: BP 133/76
[2016-12-12 16:00] VITALS: O2SAT 94
[2016-12-12] MEDS: CEROVITE ADV FORMULA TAB PO SCH (20:21)
[2016-12-12] MEDS: CHOLECALCIFEROL 1000 INTER.UNIT TAB PO SCH (20:21)
[2016-12-12 23:38] VITALS: BP 150/91; PULSE 69; TEMP 36.6; O2SAT 91
[2016-12-13] MEDS: PANTOprazole SOD 40 MG TAB PO SCH (06:31)
[2016-12-13] MEDS: LEVOTHYROXINE 50 MCG TAB PO SCH (06:31)
[2016-12-13] MEDS: MoRPHine SULFATE IR 15 MG TAB (IMMEDIATE RELEASE) PO PRN (06:38)
[2016-12-13 07:37] VITALS: BP 127/65; PULSE 68; TEMP 36.9; O2SAT 99
[2016-12-13 08:04] LABS: BASO % 0.1 %; BASO ABS # 0.01 K/uL (0-0.2); COMPLETE YES; EOS % 1.3 %; IG% 1.3 %; LYMPH % 14.2 %; LYMPH ABS # 0.97 K/uL (1.2-3.4); MEAN CELL VOLUME 93.3 fL (80-100); MEAN CORPUSCULAR HEMOGLOBIN 30.9 pg (25-34); MEAN CORPUSCULAR HGB CONC 33.1 g/dl (32-36); MEAN PLATELET VOLUME 9.3 fL (7.4-10.4); MONO % 13.9 %; NEUT % 69.2 %; PLATELET COUNT 274 K/uL (130-400); RED BLOOD COUNT 3.43 M/uL (4.2-5.4); WHITE BLOOD COUNT 6.84 K/uL (4.8-10.8)
[2016-12-13] MEDS: CARVEDILOL 3.125 MG TAB PO SCH ×2 (08:14→20:21)
[2016-12-13] MEDS: CARBIDOPA/LEVODOPA 25/100MG TAB PO SCH ×2 (08:14→20:21)
[2016-12-13] MEDS: LACTOBACILLUS ACIDOPHILUS (FLORANEX) TAB PO SCH ×3 (08:14→16:48)
[2016-12-13] MEDS: IPRATROPIUM BROMIDE/ALBUTEROL respimat INH INH SCH ×4 (08:14→20:20)
[2016-12-13] MEDS: ASPIRIN 81 MG ECTAB PO SCH (08:14)
[2016-12-13 08:15] LABS: BUN/CREATININE RATIO 13.2 (10-20); CALCIUM 8.9 mg/dl (8.5-10.1); CREATININE 4.4 mg/dl (0.60-1.20); POTASSIUM 5.3 mmol/L (3.5-5.1)
[2016-12-13] MEDS: AMMONIUM LACTATE 12% LOTION 225 GM BTL EXT SCH ×2 (08:15→20:20)
[2016-12-13] MEDS: DOCUSATE SODIUM 100 MG CAP PO SCH ×2 (08:15→20:21)
[2016-12-13 08:20] LABS: PHOSPHORUS 4.5 mg/dl (2.5-4.9)
--- NOTE | 2016-12-13 08:39 | Family Medicine Progress Note ---
Progress Note Date of Service Dec 13, 2016. Subjective Pt evaluation today including: conversation w/ patient Reports she feels well today - but also had a long conversation about how she was scared of getting a GI procedure (?EGD) and if she would be awake for it. She reports when she went to [facility] one time she was told she needs one. We discussed how we didn't order one during this admission and she seemed relieved. Reports her legs feel better as well, but she wants to put KRYSTIAN stockings on which wound care did not recommend. Constitutional: No chills, No fever, No sweats, No weakness, No weight loss ENT: No hearing loss Respiratory: No cough, No shortness of breath, No sputum, No wheezing Cardiovascular: No chest pain Abdomen: No diarrhea, No nausea, No pain, No vomiting Skin: No rash All Other Systems: Reviewed and Negative Medications Current Inpatient Medications Medications (Trade) Dose Ordered Sig/Zack Route Start Time Stop Time Status Last Admin Dose Admin Acetaminophen (Tylenol Tab) 650 mg Q4H PRN PO 12/11/16 18:45 01/10/17 18:44 Zolpidem Tartrate (Ambien Tab) 5 mg HSZ PRN PO 12/11/16 18:45 01/10/17 18:44 Aspirin (Ecotrin Tab) 81 mg QAM PO 12/12/16 08:00 01/11/17 08:59 12/13/16 08:14 81 MG Carbidopa/Levodopa (Sinemet 25/ 100MG Tab) 1 tab BID PO 12/11/16 20:00 01/10/17 20:59 12/13/16 08:14 1 TAB Carvedilol (Coreg Tab) 9.375 mg BID PO 12/11/16 20:00 01/10/17 20:59 12/13/16 08:14 9.375 MG Cholecalciferol (Vitamin D Tab) 1,000 inter.unit QPM PO 12/11/16 21:00 01/10/17 20:59 12/12/16 20:21 1,000 INTER.UNIT Albuterol/ Ipratropium (Combivent Respimat Inh) 1 puffs QID INH 12/12/16 08:00 01/11/17 07:59 12/13/16 08:14 1 PUFFS Levothyroxine Sodium (Synthroid Tab) 50 mcg DAILYBB PO 12/12/16 06:30 01/11/17 06:59 12/13/16 06:31 50 MCG Morphine Sulfate (MoRPHine SULFATE IR TAB) 22.5 mg TID PRN PO 12/11/16 18:45 12/25/16 18:44 12/13/16 06:38 22.5 MG Multivitamins/ Minerals (Multivitamin W/ Minerals Tab) 1 tab QPM PO 12/11/16 21:00 01/10/17 20:59 12/12/16 20:21 1 TAB Pantoprazole Sodium (Protonix Tab) 40 mg QAM PO 12/12/16 08:00 01/11/17 08:59 12/13/16 06:31 40 MG Prednisone (PredniSONE TAB) 10 mg QAM PO 12/12/16 08:00 01/11/17 08:59 12/13/16 08:14 10 MG Ammonium Lactate (Lac-Hydrin) 1 appl BID EXT 12/11/16 20:00 01/10/17 20:59 12/13/16 08:15 1 APPL Lactobacillus Acidophilus (Floranex Tab) 4 tab TIDM PO 12/12/16 08:00 01/11/17 07:59 12/13/16 08:14 4 TAB Lorazepam (Ativan Inj) 0.5 mg Q4H PRN IV 12/11/16 18:45 01/10/17 18:44 Magnesium Hydroxide (Milk Of Magnesia Susp) 30 ml Q6H PRN PO 12/11/16 18:45 01/10/17 18:44 Bisacodyl (Dulcolax Supp) 10 mg DAILY PRN [place] 12/11/16 18:45 01/10/17 18:44 Diphenhydramine HCl (Benadryl Inj) 25 mg Q4H PRN IV 12/11/16 18:45 01/10/17 18:44 Al Hydrox/Mg Hydrox/ Simethicone 15 ml 15 ml Q4H PRN PO 12/11/16 18:45 01/10/17 18:44 Promethazine HCl/ Sodium Chloride (Phenergan Inj/ Nss 50ml) 50.5 ml @ 202 mls/hr Q4H PRN IV 12/11/16 18:45 01/10/17 18:44 Ondansetron HCl (Zofran Inj) 4 mg Q6H PRN IV 12/11/16 18:45 01/10/17 18:44 Docusate Sodium (coLACE CAP) 100 mg BID PO 12/11/16 20:00 01/10/17 20:59 12/13/16 08:15 100 MG Morphine Sulfate 2 mg 2 mg Q2H PRN IV 12/11/16 18:45 12/25/16 18:44 12/11/16 22:21 2 MG Daptomycin/Sodium Chloride (Cubicin IV/Nss 50ml) 57 ml @ 100 mls/hr Q2D IV 12/13/16 15:00 12/14/16 14:59 Objective Vital Signs Date Time Temp Pulse Resp B/P Pulse Ox O2 Delivery O2 Flow Rate FiO2 12/13/16 07:37 36.9 68 18 127/65 99 Room Air 12/13/16 00:00 Room Air 12/12/16 23:38 36.6 69 20 150/91 91 Room Air 12/12/16 16:00 94 Room Air 12/12/16 15:48 133/76 12/12/16 15:29 36.8 63 18 94 Room Air Physical Exam General Appearance: WD/WN, no apparent distress, + thin Eyes: normal inspection, PERRL ENT: hearing grossly normal Neck: supple, thyroid normal Respiratory/Chest: lungs clear, normal breath sounds, no respiratory distress Cardiovascular: regular rate, rhythm, no murmur Abdomen: normal bowel sounds, non tender, soft Extremities: non-tender, + pedal edema (bilaterally. blisters on anterior banda bilaterally, worse on r leg.) Neurologic/Psychiatric: alert, + pertinent finding (pressured speech, remembered my name and is oriented x 3 but overall giddy) Skin: no rash Laboratory Results Last 24 Hours Test 12/12/16 09:06 12/13/16 07:35 Bedside Glucose 89 mg/dl White Blood Count 6.84 K/uL Red Blood Count 3.43 M/uL Hemoglobin 10.6 g/dL Hematocrit 32.0 % Mean Corpuscular Volume 93.3 fL Mean Corpuscular Hemoglobin 30.9 pg Mean Corpuscular Hemoglobin Concent 33.1 g/dl Platelet Count 274 K/uL Mean Platelet Volume 9.3 fL Neutrophils (%) (Auto) 69.2 % Lymphocytes (%) (Auto) 14.2 % Monocytes (%) (Auto) 13.9 % Eosinophils (%) (Auto) 1.3 % Basophils (%) (Auto) 0.1 % Neutrophils # (Auto) 4.73 K/uL Lymphocytes # (Auto) 0.97 K/uL Monocytes # (Auto) 0.95 K/uL Eosinophils # (Auto) 0.09 K/uL Basophils # (Auto) 0.01 K/uL RDW Standard Deviation 49.1 fL RDW Coefficient of Variation 14.4 % Immature Granulocyte % (Auto) 1.3 % Immature Granulocyte # (Auto) 0.09 K/uL Sodium Level 133 mmol/L Potassium Level 5.3 mmol/L Chloride Level 96 mmol/L Carbon Dioxide Level 23 mmol/L Anion Gap 14.0 mmol/L Blood Urea Nitrogen 58 mg/dl Creatinine 4.40 mg/dl Est Creatinine Clear Calc Drug Dose 6.5 ml/min Estimated GFR () 9.9 Estimated GFR (Non- 8.5 BUN/Creatinine Ratio 13.2 Random Glucose 86 mg/dl Calcium Level 8.9 mg/dl Phosphorus Level 4.5 mg/dl Assessment and Plan 86 yo F with recent admission for C. Diff colitis and CKD stage III, who presents with bilateral venous stasis/blistering, and further KOREY (creatinine 4.2 from 5.2, baseline 1.8) Acute on chronic CKD stage 3-4 - Appreciate Dr Moffett's recommendations - Hold Bumex and nephrotoxics - KOREY likely prerenal versus ATN in the setting of dehydration and concomitant use all of diuretics, however, renal function did not improve significantly with IV hydration. CT abdomen finding reviewed with radiology by Dr. Moffett. No concern of hydronephrosis - Avoid IVF - Kayexalate for elevated K >5.5 ?Right leg cellulitis/Venous stasis - ID consulted - Will stop Daptomycin today - has been afebrile, legs same temperature. - Elevate leg Blisters on leg - Reviewed by wound care - No KRYSTIAN stockings for now CAD - Continue Aspirin Chronic pain - Has morphine 2mg IV PRN - ?Med rec reports pt takes 22.5mg TID PRN Hypothyroidism - Continue levothyroxine 50mcg CODE STATUS: FULL (<- Discussed this with patient, she said would rather wait until more family is here to determine if she is a DNR) VTE: - Cannot use SCDs, will start Heparin today DISPO: Med surg Resident Tracking Resident Involvement: Resident Care Provided Care Provided: Adult Hospital Medicine Reviewed: Pt Seen/Exam by Me Constitutional: denies: fever Respiratory: negative: short of breath Cardiovascular: denies chest pain General Appearance: no apparent distress Respiratory: lungs clear, no respiratory distress Cardiovascular: regular rate, rhythm Extremities: other (no erythema noted) Neurologic/Psychiatric: alert, oriented x 3 Skin Characteristics: warm/dry Assessment/Plan I have reviewed the medical record and performed a history and physical examination of this patient today. I have discussed the case with Dr Escudero. The above note reflects my findings, conclusions, and recommendations.
--- NOTE | 2016-12-13 09:54 | Infectious Disease Progress Nt ---
Progress Note Date of Service Dec 13, 2016. Subjective Pt evaluation today including: conversation w/ patient, physical exam, chart review, lab review, review of studies, conversation w/ travel service consultant, review of inpatient medication list Offers no new complaints today. No worsening diarrhea, no fever chills. Tolerating current therapy. All Other Systems: Reviewed and Negative Medications Current Inpatient Medications Medications (Trade) Dose Ordered Sig/Zack Route Start Time Stop Time Status Last Admin Dose Admin Acetaminophen (Tylenol Tab) 650 mg Q4H PRN PO 12/11/16 18:45 01/10/17 18:44 Zolpidem Tartrate (Ambien Tab) 5 mg HSZ PRN PO 12/11/16 18:45 01/10/17 18:44 Aspirin (Ecotrin Tab) 81 mg QAM PO 12/12/16 08:00 01/11/17 08:59 12/13/16 08:14 81 MG Carbidopa/Levodopa (Sinemet 25/ 100MG Tab) 1 tab BID PO 12/11/16 20:00 01/10/17 20:59 12/13/16 08:14 1 TAB Carvedilol (Coreg Tab) 9.375 mg BID PO 12/11/16 20:00 01/10/17 20:59 12/13/16 08:14 9.375 MG Cholecalciferol (Vitamin D Tab) 1,000 inter.unit QPM PO 12/11/16 21:00 01/10/17 20:59 12/12/16 20:21 1,000 INTER.UNIT Albuterol/ Ipratropium (Combivent Respimat Inh) 1 puffs QID INH 12/12/16 08:00 01/11/17 07:59 12/13/16 08:14 1 PUFFS Levothyroxine Sodium (Synthroid Tab) 50 mcg DAILYBB PO 12/12/16 06:30 01/11/17 06:59 12/13/16 06:31 50 MCG Morphine Sulfate (MoRPHine SULFATE IR TAB) 22.5 mg TID PRN PO 12/11/16 18:45 12/25/16 18:44 12/13/16 06:38 22.5 MG Multivitamins/ Minerals (Multivitamin W/ Minerals Tab) 1 tab QPM PO 12/11/16 21:00 01/10/17 20:59 12/12/16 20:21 1 TAB Pantoprazole Sodium (Protonix Tab) 40 mg QAM PO 12/12/16 08:00 01/11/17 08:59 12/13/16 06:31 40 MG Prednisone (PredniSONE TAB) 10 mg QAM PO 12/12/16 08:00 01/11/17 08:59 12/13/16 08:14 10 MG Ammonium Lactate (Lac-Hydrin) 1 appl BID EXT 12/11/16 20:00 01/10/17 20:59 12/13/16 08:15 1 APPL Lactobacillus Acidophilus (Floranex Tab) 4 tab TIDM PO 12/12/16 08:00 01/11/17 07:59 12/13/16 08:14 4 TAB Lorazepam (Ativan Inj) 0.5 mg Q4H PRN IV 12/11/16 18:45 01/10/17 18:44 Magnesium Hydroxide (Milk Of Magnesia Susp) 30 ml Q6H PRN PO 12/11/16 18:45 01/10/17 18:44 Bisacodyl (Dulcolax Supp) 10 mg DAILY PRN [place] 12/11/16 18:45 01/10/17 18:44 Diphenhydramine HCl (Benadryl Inj) 25 mg Q4H PRN IV 12/11/16 18:45 01/10/17 18:44 Al Hydrox/Mg Hydrox/ Simethicone 15 ml 15 ml Q4H PRN PO 12/11/16 18:45 01/10/17 18:44 Promethazine HCl/ Sodium Chloride (Phenergan Inj/ Nss 50ml) 50.5 ml @ 202 mls/hr Q4H PRN IV 12/11/16 18:45 01/10/17 18:44 Ondansetron HCl (Zofran Inj) 4 mg Q6H PRN IV 12/11/16 18:45 01/10/17 18:44 Docusate Sodium (coLACE CAP) 100 mg BID PO 12/11/16 20:00 01/10/17 20:59 12/13/16 08:15 100 MG Morphine Sulfate 2 mg 2 mg Q2H PRN IV 12/11/16 18:45 12/25/16 18:44 12/11/16 22:21 2 MG Daptomycin/Sodium Chloride (Cubicin IV/Nss 50ml) 57 ml @ 100 mls/hr Q2D IV 12/13/16 15:00 12/14/16 14:59 Heparin Sodium (Porcine) (Heparin Sq 5000 Unit/0.5ml) 5,000 unit Q12 SQ 12/13/16 09:00 01/12/17 08:59 Objective Vital Signs Date Time Temp Pulse Resp B/P Pulse Ox O2 Delivery O2 Flow Rate FiO2 12/13/16 07:37 36.9 68 18 127/65 99 Room Air 12/13/16 00:00 Room Air 12/12/16 23:38 36.6 69 20 150/91 91 Room Air 12/12/16 16:00 94 Room Air 12/12/16 15:48 133/76 12/12/16 15:29 36.8 63 18 94 Room Air Physical Exam General Appearance: WD/WN, no apparent distress Eyes: normal inspection, EOMI, sclerae normal ENT: normal ENT inspection, pharynx normal Neck: supple, no adenopathy, no carotid bruits Respiratory/Chest: chest non-tender, lungs clear, normal breath sounds, no respiratory distress Cardiovascular: regular rate, rhythm, no gallop, no murmur Abdomen: normal bowel sounds, non tender, soft, no organomegaly Extremities: non-tender, + inflammation, + swelling Neurologic/Psychiatric: alert, oriented x 3 Skin: normal color, no rash, + pertinent finding (Improving cellulitis) Lymphatic: no adenopathy Laboratory Results Last 24 Hours Test 12/13/16 07:35 White Blood Count 6.84 K/uL Red Blood Count 3.43 M/uL Hemoglobin 10.6 g/dL Hematocrit 32.0 % Mean Corpuscular Volume 93.3 fL Mean Corpuscular Hemoglobin 30.9 pg Mean Corpuscular Hemoglobin Concent 33.1 g/dl Platelet Count 274 K/uL Mean Platelet Volume 9.3 fL Neutrophils (%) (Auto) 69.2 % Lymphocytes (%) (Auto) 14.2 % Monocytes (%) (Auto) 13.9 % Eosinophils (%) (Auto) 1.3 % Basophils (%) (Auto) 0.1 % Neutrophils # (Auto) 4.73 K/uL Lymphocytes # (Auto) 0.97 K/uL Monocytes # (Auto) 0.95 K/uL Eosinophils # (Auto) 0.09 K/uL Basophils # (Auto) 0.01 K/uL RDW Standard Deviation 49.1 fL RDW Coefficient of Variation 14.4 % Immature Granulocyte % (Auto) 1.3 % Immature Granulocyte # (Auto) 0.09 K/uL Sodium Level 133 mmol/L Potassium Level 5.3 mmol/L Chloride Level 96 mmol/L Carbon Dioxide Level 23 mmol/L Anion Gap 14.0 mmol/L Blood Urea Nitrogen 58 mg/dl Creatinine 4.40 mg/dl Est Creatinine Clear Calc Drug Dose 6.5 ml/min Estimated GFR () 9.9 Estimated GFR (Non- 8.5 BUN/Creatinine Ratio 13.2 Random Glucose 86 mg/dl Calcium Level 8.9 mg/dl Phosphorus Level 4.5 mg/dl Assessment and Plan Patient with right lower extremity cellulitis in the setting of chronic lymphedema, as well as acute kidney injury, and recent C difficile infection. Given allergies to penicillin and vancomycin, daptomycin appropriate therapy with dose adjusted for renal insufficiency. Patient without significant diarrhea at present, and daptomycin not usually associated with C difficile infection.length of IV antibiotics will be determined by clinical response, likely 1-2 more doses.
[2016-12-13] MEDS: HEPARIN SOD 5000 UNIT/0.5 ML CARP SQ SCH ×2 (11:51→20:23)
--- NOTE | 2016-12-13 12:39 | Nephrology Progress Note ---
Nephrology Progress Note Date of Service Dec 13, 2016. Chief Complaint KOREY Subjective Marli was seen and examined in her hospital room this morning. We discussed her recent hospital course in detail. She feels well. She denied any acute complaints. Volume status acceptable. Lower extremity edema improved. Appetite fair. She was able to eat some this morning without vomiting, nausea or reflux. She denies shortness of breath. She is hopeful that she can get out of bed to walk today. Review of Systems A complete review of systems was performed. Pertinent positives are noted above. All other systems are negative. Vital Signs Last 8 Hrs Date Time Temp Pulse Resp B/P Pulse Ox O2 Delivery O2 Flow Rate FiO2 12/13/16 08:00 Room Air 12/13/16 07:37 36.9 68 18 127/65 99 Room Air I & O 24-Hour Column 12/13/16 07:59 Intake Total 480 ml Output Total 150 ml Balance 330 ml Last Recorded Weight Weight (Kilograms): 58.000 Physical Exam General Appearance: WD/WN, no apparent distress Head: normocephalic, atraumatic Eyes: normal inspection, sclerae normal ENT: normal ENT inspection, pharynx normal Neck: supple, no JVD Respiratory/Chest: lungs clear, no respiratory distress, no accessory muscle use Cardiovascular: regular rate, rhythm, no gallop Abdomen/GI: non tender, soft Extremities/Musculoskelatal: normal inspection, + pedal edema (+1 with chronic changes) Neurologic/Psych: alert, oriented x 3 Family History FH: heart disease Hypertension Kidney disease Kidney stones Social History Smoking Status: Never smoker Smokeless Tobacco Use: No Alcohol Use: none Drug Use: none Marital Status: Housing Status: lives with family Occupation: retired Laboratory Results Past 24 Hours 12/13/16 07:35 Red Blood Count 3.43, Mean Corpuscular Volume 93.3, Mean Corpuscular Hemoglobin 30.9, Mean Corpuscular Hemoglobin Concent 33.1, Mean Platelet Volume 9.3, Neutrophils (%) (Auto) 69.2, Lymphocytes (%) (Auto) 14.2, Monocytes (%) (Auto) 13.9, Eosinophils (%) (Auto) 1.3, Basophils (%) (Auto) 0.1, Neutrophils # (Auto ) 4.73, Lymphocytes # (Auto) 0.97, Monocytes # (Auto) 0.95, Eosinophils # (Auto ) 0.09, Basophils # (Auto) 0.01 12/13/16 07:35 Test 12/13/16 07:35 White Blood Count 6.84 K/uL (4.8-10.8) Red Blood Count 3.43 M/uL (4.2-5.4) Hemoglobin 10.6 g/dL (12.0-16.0) Hematocrit 32.0 % (37-47) Mean Corpuscular Volume 93.3 fL (80-100) Mean Corpuscular Hemoglobin 30.9 pg (25-34) Mean Corpuscular Hemoglobin Concent 33.1 g/dl (32-36) Platelet Count 274 K/uL (130-400) Mean Platelet Volume 9.3 fL (7.4-10.4) Neutrophils (%) (Auto) 69.2 % Lymphocytes (%) (Auto) 14.2 % Monocytes (%) (Auto) 13.9 % Eosinophils (%) (Auto) 1.3 % Basophils (%) (Auto) 0.1 % Neutrophils # (Auto) 4.73 K/uL (1.4-6.5) Lymphocytes # (Auto) 0.97 K/uL (1.2-3.4) Monocytes # (Auto) 0.95 K/uL (0.11-0.59) Eosinophils # (Auto) 0.09 K/uL (0-0.5) Basophils # (Auto) 0.01 K/uL (0-0.2) RDW Standard Deviation 49.1 fL (36.4-46.3) RDW Coefficient of Variation 14.4 % (11.5-14.5) Immature Granulocyte % (Auto) 1.3 % Immature Granulocyte # (Auto) 0.09 K/uL (0.00-0.02) Anion Gap 14.0 mmol/L (3-11) Est Creatinine Clear Calc Drug Dose 6.5 ml/min Estimated GFR () 9.9 Estimated GFR (Non- 8.5 BUN/Creatinine Ratio 13.2 (10-20) Calcium Level 8.9 mg/dl (8.5-10.1) Phosphorus Level 4.5 mg/dl (2.5-4.9) Allergies Coded Allergies: Codeine (Verified Allergy, Mild, 12/11/16) Penicillins (Verified Allergy, Mild, ., 12/11/16) tolerated cefepime Banana (Verified Allergy, Unknown, GI symptoms, 12/11/16) Erythromycin (Verified Allergy, Unknown, ., 12/11/16) Sulfa Antibiotics (Verified Allergy, Unknown, Unknown, 12/11/16) Vancomycin (Verified Allergy, Unknown, ., 12/11/16) Cantaloupe (Verified Adverse Reaction, Unknown, GI SYMPTOMS FROM UNSPECIFIED MELONS, 12/11/16) Medications Current Inpatient Medications Medications (Trade) Dose Ordered Sig/Zack Route Start Time Stop Time Status Last Admin Dose Admin Acetaminophen (Tylenol Tab) 650 mg Q4H PRN PO 12/11/16 18:45 01/10/17 18:44 Zolpidem Tartrate (Ambien Tab) 5 mg HSZ PRN PO 12/11/16 18:45 01/10/17 18:44 Aspirin (Ecotrin Tab) 81 mg QAM PO 12/12/16 08:00 01/11/17 08:59 12/13/16 08:14 81 MG Carbidopa/Levodopa (Sinemet 25/ 100MG Tab) 1 tab BID PO 12/11/16 20:00 01/10/17 20:59 12/13/16 08:14 1 TAB Carvedilol (Coreg Tab) 9.375 mg BID PO 12/11/16 20:00 01/10/17 20:59 12/13/16 08:14 9.375 MG Cholecalciferol (Vitamin D Tab) 1,000 inter.unit QPM PO 12/11/16 21:00 01/10/17 20:59 12/12/16 20:21 1,000 INTER.UNIT Albuterol/ Ipratropium (Combivent Respimat Inh) 1 puffs QID INH 12/12/16 08:00 01/11/17 07:59 12/13/16 11:50 1 PUFFS Levothyroxine Sodium (Synthroid Tab) 50 mcg DAILYBB PO 12/12/16 06:30 01/11/17 06:59 12/13/16 06:31 50 MCG Morphine Sulfate (MoRPHine SULFATE IR TAB) 22.5 mg TID PRN PO 12/11/16 18:45 12/25/16 18:44 12/13/16 06:38 22.5 MG Multivitamins/ Minerals (Multivitamin W/ Minerals Tab) 1 tab QPM PO 12/11/16 21:00 01/10/17 20:59 12/12/16 20:21 1 TAB Pantoprazole Sodium (Protonix Tab) 40 mg QAM PO 12/12/16 08:00 01/11/17 08:59 12/13/16 06:31 40 MG Prednisone (PredniSONE TAB) 10 mg QAM PO 12/12/16 08:00 01/11/17 08:59 12/13/16 08:14 10 MG Ammonium Lactate (Lac-Hydrin) 1 appl BID EXT 12/11/16 20:00 01/10/17 20:59 12/13/16 08:15 1 APPL Lactobacillus Acidophilus (Floranex Tab) 4 tab TIDM PO 12/12/16 08:00 01/11/17 07:59 12/13/16 11:50 4 TAB Lorazepam (Ativan Inj) 0.5 mg Q4H PRN IV 12/11/16 18:45 01/10/17 18:44 Magnesium Hydroxide (Milk Of Magnesia Susp) 30 ml Q6H PRN PO 12/11/16 18:45 01/10/17 18:44 Bisacodyl (Dulcolax Supp) 10 mg DAILY PRN [place] 12/11/16 18:45 01/10/17 18:44 Diphenhydramine HCl (Benadryl Inj) 25 mg Q4H PRN IV 12/11/16 18:45 01/10/17 18:44 Al Hydrox/Mg Hydrox/ Simethicone 15 ml 15 ml Q4H PRN PO 12/11/16 18:45 01/10/17 18:44 Promethazine HCl/ Sodium Chloride (Phenergan Inj/ Nss 50ml) 50.5 ml @ 202 mls/hr Q4H PRN IV 12/11/16 18:45 01/10/17 18:44 Ondansetron HCl (Zofran Inj) 4 mg Q6H PRN IV 12/11/16 18:45 01/10/17 18:44 Docusate Sodium (coLACE CAP) 100 mg BID PO 12/11/16 20:00 01/10/17 20:59 12/13/16 08:15 100 MG Morphine Sulfate 2 mg 2 mg Q2H PRN IV 12/11/16 18:45 12/25/16 18:44 12/11/16 22:21 2 MG Daptomycin/Sodium Chloride (Cubicin IV/Nss 50ml) 57 ml @ 100 mls/hr Q2D IV 12/13/16 15:00 12/14/16 14:59 Heparin Sodium (Porcine) (Heparin Sq 5000 Unit/0.5ml) 5,000 unit Q12 SQ 12/13/16 09:00 01/12/17 08:59 12/13/16 11:51 5,000 UNIT Impression (1) Acute kidney injury superimposed on chronic kidney disease (2) Hyperkalemia, diminished renal excretion (3) Cellulitis of right leg (4) Hypertension (5) Hyperphosphatemia Marli is an 86-year-old female with past medical history of hypertension, stage 3 /4 chronic kidney disease, baseline creatinine 1.6-2.0, history of recurrent acute kidney injury, recent C diff colitis admitted to the hospital with dehydration secondary to vomiting, acute kidney injury and right LE cellulitis. She describes a history of reflux and vomiting associated with a hiatal hernia and states that she has refused upper endoscopy in the past. On admission creatinine was 5.1 with a potassium of 5.6. Urinalysis was negative for proteinuria or hematuria. CT scan abdomen pelvis negative for postrenal obstruction, renal mass or stone. Acute kidney injury most likely secondary to ATN and prerenal due to dehydration and concomitant use all of diuretics. Volume status is currently appropriate. Creatinine continuing to show evidence of renal recovery. Started on daptomycin for right lower extremity cellulitis. Nausea vomiting currently resolved and did not have diarrhea. Recommendations --Hold diuretics. Goal is to maintain even fluid balance --Document I/O's --Medications currently appropriately dosed for renal function --Renal/potassium restricted diet --Check CPK tomorrow AM while on daptomycin
[2016-12-13] MEDS ORDERED: DAPTOmycin IV 350 MG in SODIUM CHLORIDE 0.9% 50ML 50 ML IV SCH ×2 (15:00)
[2016-12-13 15:19] VITALS: BP 135/72; PULSE 62; TEMP 36.7; O2SAT 97
[2016-12-13] MEDS: CHOLECALCIFEROL 1000 INTER.UNIT TAB PO SCH (20:21)
[2016-12-13] MEDS: CEROVITE ADV FORMULA TAB PO SCH (20:21)
[2016-12-14 00:16] VITALS: BP 142/76; PULSE 72; TEMP 36.6; O2SAT 95
[2016-12-14] MEDS: LEVOTHYROXINE 50 MCG TAB PO SCH (05:37)
[2016-12-14] MEDS: IPRATROPIUM BROMIDE/ALBUTEROL respimat INH INH SCH ×4 (07:24→21:07)
[2016-12-14] MEDS: PANTOprazole SOD 40 MG TAB PO SCH (07:24)
[2016-12-14] MEDS: CARBIDOPA/LEVODOPA 25/100MG TAB PO SCH ×2 (07:24→21:10)
[2016-12-14] MEDS: ASPIRIN 81 MG ECTAB PO SCH (07:25)
[2016-12-14] MEDS: DOCUSATE SODIUM 100 MG CAP PO SCH ×2 (07:25→21:12)
[2016-12-14] MEDS: CARVEDILOL 3.125 MG TAB PO SCH ×2 (07:25→21:14)
[2016-12-14] MEDS: LACTOBACILLUS ACIDOPHILUS (FLORANEX) TAB PO SCH ×3 (07:25→17:40)
[2016-12-14] MEDS: AMMONIUM LACTATE 12% LOTION 225 GM BTL EXT SCH ×2 (07:26→21:10)
[2016-12-14] MEDS: HEPARIN SOD 5000 UNIT/0.5 ML CARP SQ SCH ×2 (07:29→21:16)
[2016-12-14 07:38] LABS: BASO % 0.3 %; BASO ABS # 0.02 K/uL (0-0.2); COMPLETE YES; EOS % 1.7 %; HEMATOCRIT 32.2 % (37-47); IG% 1.7 %; LYMPH % 14.5 %; LYMPH ABS # 0.86 K/uL (1.2-3.4); MEAN CELL VOLUME 93.3 fL (80-100); MEAN CORPUSCULAR HEMOGLOBIN 30.4 pg (25-34); MEAN CORPUSCULAR HGB CONC 32.6 g/dl (32-36); MEAN PLATELET VOLUME 9.6 fL (7.4-10.4); MONO % 14.1 %; NEUT % 67.7 %; PLATELET COUNT 276 K/uL (130-400); RED BLOOD COUNT 3.45 M/uL (4.2-5.4); WHITE BLOOD COUNT 5.95 K/uL (4.8-10.8)
[2016-12-14 07:55] LABS: BUN/CREATININE RATIO 15.1 (10-20); CREATININE 3.7 mg/dl (0.60-1.20); POTASSIUM 4.6 mmol/L (3.5-5.1)
[2016-12-14 07:56] VITALS: BP 150/79; PULSE 70; TEMP 36.3; O2SAT 95
--- NOTE | 2016-12-14 12:07 | Family Medicine Progress Note ---
Progress Note Date of Service Dec 14, 2016. Subjective Pt evaluation today including: conversation w/ patient Was sleeping comfortably and soundly - upon lightly awakening, she mumbled slightly but allowed me to examine her briefly. Additional Comments: Unable to obtain Medications Current Inpatient Medications Medications (Trade) Dose Ordered Sig/Zack Route Start Time Stop Time Status Last Admin Dose Admin Acetaminophen (Tylenol Tab) 650 mg Q4H PRN PO 12/11/16 18:45 01/10/17 18:44 Zolpidem Tartrate (Ambien Tab) 5 mg HSZ PRN PO 12/11/16 18:45 01/10/17 18:44 Aspirin (Ecotrin Tab) 81 mg QAM PO 12/12/16 08:00 01/11/17 08:59 12/14/16 07:25 81 MG Carbidopa/Levodopa (Sinemet 25/ 100MG Tab) 1 tab BID PO 12/11/16 20:00 01/10/17 20:59 12/14/16 07:24 1 TAB Carvedilol (Coreg Tab) 9.375 mg BID PO 12/11/16 20:00 01/10/17 20:59 12/14/16 07:25 9.375 MG Cholecalciferol (Vitamin D Tab) 1,000 inter.unit QPM PO 12/11/16 21:00 01/10/17 20:59 12/13/16 20:21 1,000 INTER.UNIT Albuterol/ Ipratropium (Combivent Respimat Inh) 1 puffs QID INH 12/12/16 08:00 01/11/17 07:59 12/14/16 11:42 1 PUFFS Levothyroxine Sodium (Synthroid Tab) 50 mcg DAILYBB PO 12/12/16 06:30 01/11/17 06:59 12/14/16 05:37 50 MCG Morphine Sulfate (MoRPHine SULFATE IR TAB) 22.5 mg TID PRN PO 12/11/16 18:45 12/25/16 18:44 12/13/16 06:38 22.5 MG Multivitamins/ Minerals (Multivitamin W/ Minerals Tab) 1 tab QPM PO 12/11/16 21:00 01/10/17 20:59 12/13/16 20:21 1 TAB Pantoprazole Sodium (Protonix Tab) 40 mg QAM PO 12/12/16 08:00 01/11/17 08:59 12/14/16 07:24 40 MG Prednisone (PredniSONE TAB) 10 mg QAM PO 12/12/16 08:00 01/11/17 08:59 12/14/16 07:25 10 MG Ammonium Lactate (Lac-Hydrin) 1 appl BID EXT 12/11/16 20:00 01/10/17 20:59 12/14/16 07:26 1 APPL Lactobacillus Acidophilus (Floranex Tab) 4 tab TIDM PO 12/12/16 08:00 01/11/17 07:59 12/14/16 11:42 4 TAB Lorazepam (Ativan Inj) 0.5 mg Q4H PRN IV 12/11/16 18:45 01/10/17 18:44 Magnesium Hydroxide (Milk Of Magnesia Susp) 30 ml Q6H PRN PO 12/11/16 18:45 01/10/17 18:44 Bisacodyl (Dulcolax Supp) 10 mg DAILY PRN [place] 12/11/16 18:45 01/10/17 18:44 Diphenhydramine HCl (Benadryl Inj) 25 mg Q4H PRN IV 12/11/16 18:45 01/10/17 18:44 Al Hydrox/Mg Hydrox/ Simethicone 15 ml 15 ml Q4H PRN PO 12/11/16 18:45 01/10/17 18:44 Promethazine HCl/ Sodium Chloride (Phenergan Inj/ Nss 50ml) 50.5 ml @ 202 mls/hr Q4H PRN IV 12/11/16 18:45 01/10/17 18:44 Ondansetron HCl (Zofran Inj) 4 mg Q6H PRN IV 12/11/16 18:45 01/10/17 18:44 Docusate Sodium (coLACE CAP) 100 mg BID PO 12/11/16 20:00 01/10/17 20:59 12/14/16 07:25 100 MG Morphine Sulfate (MoRPHine SULFATE INJ) 2 mg Q2H PRN IV 12/11/16 18:45 12/25/16 18:44 12/11/16 22:21 2 MG Heparin Sodium (Porcine) (Heparin Sq 5000 Unit/0.5ml) 5,000 unit Q12 SQ 12/13/16 09:00 01/12/17 08:59 12/14/16 07:29 5,000 UNIT Objective Vital Signs Date Time Temp Pulse Resp B/P Pulse Ox O2 Delivery O2 Flow Rate FiO2 12/14/16 08:45 Room Air 12/14/16 07:56 36.3 70 18 150/79 95 Room Air 12/14/16 00:16 36.6 72 18 142/76 95 Room Air 12/13/16 20:11 Room Air 12/13/16 16:00 Room Air 12/13/16 15:19 36.7 62 20 135/72 97 Room Air Physical Exam General Appearance: WD/WN, no apparent distress Eyes: normal inspection, PERRL ENT: hearing grossly normal Neck: supple, no JVD Respiratory/Chest: lungs clear, normal breath sounds, no respiratory distress Cardiovascular: regular rate, rhythm, no murmur Abdomen: normal bowel sounds, soft Extremities: + pedal edema (anterior blistering improved) Neurologic/Psychiatric: + pertinent finding (drowsy) Skin: no rash Laboratory Results Last 24 Hours Test 12/14/16 06:50 White Blood Count 5.95 K/uL Red Blood Count 3.45 M/uL Hemoglobin 10.5 g/dL Hematocrit 32.2 % Mean Corpuscular Volume 93.3 fL Mean Corpuscular Hemoglobin 30.4 pg Mean Corpuscular Hemoglobin Concent 32.6 g/dl Platelet Count 276 K/uL Mean Platelet Volume 9.6 fL Neutrophils (%) (Auto) 67.7 % Lymphocytes (%) (Auto) 14.5 % Monocytes (%) (Auto) 14.1 % Eosinophils (%) (Auto) 1.7 % Basophils (%) (Auto) 0.3 % Neutrophils # (Auto) 4.03 K/uL Lymphocytes # (Auto) 0.86 K/uL Monocytes # (Auto) 0.84 K/uL Eosinophils # (Auto) 0.10 K/uL Basophils # (Auto) 0.02 K/uL RDW Standard Deviation 49.9 fL RDW Coefficient of Variation 14.6 % Immature Granulocyte % (Auto) 1.7 % Immature Granulocyte # (Auto) 0.10 K/uL Sodium Level 136 mmol/L Potassium Level 4.6 mmol/L Chloride Level 98 mmol/L Carbon Dioxide Level 27 mmol/L Anion Gap 11.0 mmol/L Blood Urea Nitrogen 56 mg/dl Creatinine 3.70 mg/dl Est Creatinine Clear Calc Drug Dose 7.7 ml/min Estimated GFR () 12.1 Estimated GFR (Non- 10.5 BUN/Creatinine Ratio 15.1 Random Glucose 82 mg/dl Calcium Level 9.0 mg/dl Total Creatine Kinase 62 U/L Assessment and Plan 86 yo F with recent admission for C. Diff colitis and CKD stage III, who presents with bilateral venous stasis/blistering, and further KOREY (creatinine 3.7 from 5.2, baseline 1.8) Acute on chronic CKD stage 3-4 - Renal function improving. - Appreciate Dr Mcgregor's recommendations - Hold Bumex and nephrotoxics - KOREY likely prerenal versus ATN in the setting of dehydration and concomitant use all of diuretics, however, renal function did not improve significantly with IV hydration. CT abdomen finding reviewed with radiology by Dr. Moffett. No concern of hydronephrosis - Avoid IVF - Kayexalate for elevated K >5.5 - Daily BMP - I&O monitoring ?Right leg cellulitis/Venous stasis - ID consulted - Daptomycin stopped - Elevate leg Blisters on leg - Reviewed by wound care - No KRYSTIAN stockings for now CAD - Continue Aspirin Chronic pain - Has morphine 2mg IV PRN - ?Med rec reports pt takes 22.5mg TID PRN Hypothyroidism - Continue levothyroxine 50mcg CODE STATUS: FULL (<- Discussed this with patient, she said would rather wait until more family is here to determine if she is a DNR) VTE: - Cannot use SCDs, will start Heparin today DISPO: Med surg Resident Tracking Resident Involvement: Resident Care Provided Care Provided: Adult Hospital Medicine Reviewed: Pt Seen/Exam by Me History no new concerns Constitutional: denies: fever Respiratory: negative: short of breath Cardiovascular: denies chest pain General Appearance: no apparent distress Respiratory: lungs clear, no respiratory distress Cardiovascular: regular rate, rhythm Extremities: other (both legs with venous stasis. right anterior leg blister - unchanged. ) Neurologic/Psychiatric: alert, other (oriented to place and person) Assessment/Plan I have reviewed the medical record and performed a history and physical examination of this patient today. I have discussed the case with Dr Escudero. The above note reflects my findings, conclusions, and recommendations.
--- NOTE | 2016-12-14 15:13 | Nephrology Progress Note ---
Nephrology Progress Note Date of Service Dec 14, 2016. Chief Complaint KOREY Subjective no acute events overnight. Marli was seen and evaluated her hospital room this morning. She was sleeping but did wake up to answer questions. She denied complaints or concerns. Review of Systems A complete review of systems was performed. Pertinent positives are noted above. All other systems are negative. Vital Signs Last 8 Hrs Date Time Temp Pulse Resp B/P Pulse Ox O2 Delivery O2 Flow Rate FiO2 12/14/16 08:45 Room Air 12/14/16 07:56 36.3 70 18 150/79 95 Room Air I & O 24-Hour Column 12/14/16 07:59 Intake Total 1120 ml Output Total 150 ml Balance 970 ml Last Recorded Weight Weight (Kilograms): 58.000 Physical Exam General Appearance: WD/WN, no apparent distress Head: normocephalic, atraumatic Eyes: normal inspection, sclerae normal ENT: normal ENT inspection, pharynx normal Neck: supple, no JVD Respiratory/Chest: lungs clear, no respiratory distress, no accessory muscle use Cardiovascular: regular rate, rhythm, no murmur Abdomen/GI: non tender, soft Extremities/Musculoskelatal: normal inspection, + pedal edema Neurologic/Psych: alert, oriented x 3 Family History FH: heart disease Hypertension Kidney disease Kidney stones Social History Smoking Status: Never smoker Smokeless Tobacco Use: No Alcohol Use: none Drug Use: none Marital Status: Housing Status: lives with family Occupation: retired Laboratory Results Past 24 Hours 12/14/16 06:50 Red Blood Count 3.45, Mean Corpuscular Volume 93.3, Mean Corpuscular Hemoglobin 30.4, Mean Corpuscular Hemoglobin Concent 32.6, Mean Platelet Volume 9.6, Neutrophils (%) (Auto) 67.7, Lymphocytes (%) (Auto) 14.5, Monocytes (%) (Auto) 14.1, Eosinophils (%) (Auto) 1.7, Basophils (%) (Auto) 0.3, Neutrophils # (Auto ) 4.03, Lymphocytes # (Auto) 0.86, Monocytes # (Auto) 0.84, Eosinophils # (Auto ) 0.10, Basophils # (Auto) 0.02 12/14/16 06:50 Test 12/14/16 06:50 White Blood Count 5.95 K/uL (4.8-10.8) Red Blood Count 3.45 M/uL (4.2-5.4) Hemoglobin 10.5 g/dL (12.0-16.0) Hematocrit 32.2 % (37-47) Mean Corpuscular Volume 93.3 fL (80-100) Mean Corpuscular Hemoglobin 30.4 pg (25-34) Mean Corpuscular Hemoglobin Concent 32.6 g/dl (32-36) Platelet Count 276 K/uL (130-400) Mean Platelet Volume 9.6 fL (7.4-10.4) Neutrophils (%) (Auto) 67.7 % Lymphocytes (%) (Auto) 14.5 % Monocytes (%) (Auto) 14.1 % Eosinophils (%) (Auto) 1.7 % Basophils (%) (Auto) 0.3 % Neutrophils # (Auto) 4.03 K/uL (1.4-6.5) Lymphocytes # (Auto) 0.86 K/uL (1.2-3.4) Monocytes # (Auto) 0.84 K/uL (0.11-0.59) Eosinophils # (Auto) 0.10 K/uL (0-0.5) Basophils # (Auto) 0.02 K/uL (0-0.2) RDW Standard Deviation 49.9 fL (36.4-46.3) RDW Coefficient of Variation 14.6 % (11.5-14.5) Immature Granulocyte % (Auto) 1.7 % Immature Granulocyte # (Auto) 0.10 K/uL (0.00-0.02) Anion Gap 11.0 mmol/L (3-11) Est Creatinine Clear Calc Drug Dose 7.7 ml/min Estimated GFR () 12.1 Estimated GFR (Non- 10.5 BUN/Creatinine Ratio 15.1 (10-20) Calcium Level 9.0 mg/dl (8.5-10.1) Total Creatine Kinase 62 U/L (26-192) Allergies Coded Allergies: Codeine (Verified Allergy, Mild, 12/11/16) Penicillins (Verified Allergy, Mild, ., 12/11/16) tolerated cefepime Banana (Verified Allergy, Unknown, GI symptoms, 12/11/16) Erythromycin (Verified Allergy, Unknown, ., 12/11/16) Sulfa Antibiotics (Verified Allergy, Unknown, Unknown, 12/11/16) Vancomycin (Verified Allergy, Unknown, ., 12/11/16) Cantaloupe (Verified Adverse Reaction, Unknown, GI SYMPTOMS FROM UNSPECIFIED MELONS, 12/11/16) Medications Current Inpatient Medications Medications (Trade) Dose Ordered Sig/Zack Route Start Time Stop Time Status Last Admin Dose Admin Acetaminophen (Tylenol Tab) 650 mg Q4H PRN PO 12/11/16 18:45 01/10/17 18:44 Zolpidem Tartrate (Ambien Tab) 5 mg HSZ PRN PO 12/11/16 18:45 01/10/17 18:44 Aspirin (Ecotrin Tab) 81 mg QAM PO 12/12/16 08:00 01/11/17 08:59 12/14/16 07:25 81 MG Carbidopa/Levodopa (Sinemet 25/ 100MG Tab) 1 tab BID PO 12/11/16 20:00 01/10/17 20:59 12/14/16 07:24 1 TAB Carvedilol (Coreg Tab) 9.375 mg BID PO 12/11/16 20:00 01/10/17 20:59 12/14/16 07:25 9.375 MG Cholecalciferol (Vitamin D Tab) 1,000 inter.unit QPM PO 12/11/16 21:00 01/10/17 20:59 12/13/16 20:21 1,000 INTER.UNIT Albuterol/ Ipratropium (Combivent Respimat Inh) 1 puffs QID INH 12/12/16 08:00 01/11/17 07:59 12/14/16 11:42 1 PUFFS Levothyroxine Sodium (Synthroid Tab) 50 mcg DAILYBB PO 12/12/16 06:30 01/11/17 06:59 12/14/16 05:37 50 MCG Morphine Sulfate (MoRPHine SULFATE IR TAB) 22.5 mg TID PRN PO 12/11/16 18:45 12/25/16 18:44 12/13/16 06:38 22.5 MG Multivitamins/ Minerals (Multivitamin W/ Minerals Tab) 1 tab QPM PO 12/11/16 21:00 01/10/17 20:59 12/13/16 20:21 1 TAB Pantoprazole Sodium (Protonix Tab) 40 mg QAM PO 12/12/16 08:00 01/11/17 08:59 12/14/16 07:24 40 MG Prednisone (PredniSONE TAB) 10 mg QAM PO 12/12/16 08:00 01/11/17 08:59 12/14/16 07:25 10 MG Ammonium Lactate (Lac-Hydrin) 1 appl BID EXT 12/11/16 20:00 01/10/17 20:59 12/14/16 07:26 1 APPL Lactobacillus Acidophilus (Floranex Tab) 4 tab TIDM PO 12/12/16 08:00 01/11/17 07:59 12/14/16 11:42 4 TAB Lorazepam (Ativan Inj) 0.5 mg Q4H PRN IV 12/11/16 18:45 01/10/17 18:44 Magnesium Hydroxide (Milk Of Magnesia Susp) 30 ml Q6H PRN PO 12/11/16 18:45 01/10/17 18:44 Bisacodyl (Dulcolax Supp) 10 mg DAILY PRN [place] 12/11/16 18:45 01/10/17 18:44 Diphenhydramine HCl (Benadryl Inj) 25 mg Q4H PRN IV 12/11/16 18:45 01/10/17 18:44 Al Hydrox/Mg Hydrox/ Simethicone 15 ml 15 ml Q4H PRN PO 12/11/16 18:45 01/10/17 18:44 Promethazine HCl/ Sodium Chloride (Phenergan Inj/ Nss 50ml) 50.5 ml @ 202 mls/hr Q4H PRN IV 12/11/16 18:45 01/10/17 18:44 Ondansetron HCl (Zofran Inj) 4 mg Q6H PRN IV 12/11/16 18:45 01/10/17 18:44 Docusate Sodium (coLACE CAP) 100 mg BID PO 12/11/16 20:00 01/10/17 20:59 12/14/16 07:25 100 MG Morphine Sulfate (MoRPHine SULFATE INJ) 2 mg Q2H PRN IV 12/11/16 18:45 12/25/16 18:44 12/11/16 22:21 2 MG Heparin Sodium (Porcine) (Heparin Sq 5000 Unit/0.5ml) 5,000 unit Q12 SQ 12/13/16 09:00 01/12/17 08:59 12/14/16 07:29 5,000 UNIT Impression (1) Acute kidney injury superimposed on chronic kidney disease (2) Hyperkalemia, diminished renal excretion (3) Cellulitis of right leg (4) Hypertension (5) Hyperphosphatemia Marli is an 86-year-old female with past medical history of hypertension, stage 3 /4 chronic kidney disease, baseline creatinine 1.6-2.0, history of recurrent acute kidney injury, recent C diff colitis admitted to the hospital with dehydration secondary to vomiting, acute kidney injury and right LE cellulitis. She describes a history of reflux and vomiting associated with a hiatal hernia and states that she has refused upper endoscopy in the past. On admission creatinine was 5.1 with a potassium of 5.6. Urinalysis was negative for proteinuria or hematuria. CT scan abdomen pelvis negative for postrenal obstruction, renal mass or stone. Acute kidney injury most likely secondary to ATN and prerenal due to dehydration and concomitant use all of diuretics. Volume status is currently appropriate. Creatinine continuing to show evidence of renal recovery. Started on daptomycin for right lower extremity cellulitis. Nausea vomiting currently resolved and did not have diarrhea. Recommendations --Maintain even fluid balance. Continue to hold diuretics --Document I/O's --Medications currently appropriately dosed for renal function --Renal diet --Repeat metabolic profile tomorrow AM
[2016-12-14 15:24] VITALS: BP 103/65; PULSE 68; TEMP 36.6; O2SAT 95
[2016-12-14 16:00] VITALS: O2SAT 95
--- NOTE | 2016-12-14 19:43 | Infectious Disease Progress Nt ---
Progress Note Date of Service Dec 14, 2016. Subjective Pt evaluation today including: conversation w/ patient, physical exam, chart review, lab review, review of studies, conversation w/ enterprise resource planning consultant, review of inpatient medication list No obvious new problems overnight. Remains afebrile. Tolerating antibiotics without apparent difficulty. All Other Systems: Reviewed and Negative Medications Current Inpatient Medications Medications (Trade) Dose Ordered Sig/Zack Route Start Time Stop Time Status Last Admin Dose Admin Acetaminophen (Tylenol Tab) 650 mg Q4H PRN PO 12/11/16 18:45 01/10/17 18:44 Zolpidem Tartrate (Ambien Tab) 5 mg HSZ PRN PO 12/11/16 18:45 01/10/17 18:44 Aspirin (Ecotrin Tab) 81 mg QAM PO 12/12/16 08:00 01/11/17 08:59 12/14/16 07:25 81 MG Carbidopa/Levodopa (Sinemet 25/ 100MG Tab) 1 tab BID PO 12/11/16 20:00 01/10/17 20:59 12/14/16 07:24 1 TAB Carvedilol (Coreg Tab) 9.375 mg BID PO 12/11/16 20:00 01/10/17 20:59 12/14/16 07:25 9.375 MG Cholecalciferol (Vitamin D Tab) 1,000 inter.unit QPM PO 12/11/16 21:00 01/10/17 20:59 12/13/16 20:21 1,000 INTER.UNIT Albuterol/ Ipratropium (Combivent Respimat Inh) 1 puffs QID INH 12/12/16 08:00 01/11/17 07:59 12/14/16 17:40 1 PUFFS Levothyroxine Sodium (Synthroid Tab) 50 mcg DAILYBB PO 12/12/16 06:30 01/11/17 06:59 12/14/16 05:37 50 MCG Morphine Sulfate (MoRPHine SULFATE IR TAB) 22.5 mg TID PRN PO 12/11/16 18:45 12/25/16 18:44 12/13/16 06:38 22.5 MG Multivitamins/ Minerals (Multivitamin W/ Minerals Tab) 1 tab QPM PO 12/11/16 21:00 01/10/17 20:59 12/13/16 20:21 1 TAB Pantoprazole Sodium (Protonix Tab) 40 mg QAM PO 12/12/16 08:00 01/11/17 08:59 12/14/16 07:24 40 MG Prednisone (PredniSONE TAB) 10 mg QAM PO 12/12/16 08:00 01/11/17 08:59 12/14/16 07:25 10 MG Ammonium Lactate (Lac-Hydrin) 1 appl BID EXT 12/11/16 20:00 01/10/17 20:59 12/14/16 07:26 1 APPL Lactobacillus Acidophilus (Floranex Tab) 4 tab TIDM PO 12/12/16 08:00 01/11/17 07:59 12/14/16 17:40 4 TAB Lorazepam (Ativan Inj) 0.5 mg Q4H PRN IV 12/11/16 18:45 01/10/17 18:44 Magnesium Hydroxide (Milk Of Magnesia Susp) 30 ml Q6H PRN PO 12/11/16 18:45 01/10/17 18:44 Bisacodyl (Dulcolax Supp) 10 mg DAILY PRN [place] 12/11/16 18:45 01/10/17 18:44 Diphenhydramine HCl (Benadryl Inj) 25 mg Q4H PRN IV 12/11/16 18:45 01/10/17 18:44 Al Hydrox/Mg Hydrox/ Simethicone 15 ml 15 ml Q4H PRN PO 12/11/16 18:45 01/10/17 18:44 Promethazine HCl/ Sodium Chloride (Phenergan Inj/ Nss 50ml) 50.5 ml @ 202 mls/hr Q4H PRN IV 12/11/16 18:45 01/10/17 18:44 Ondansetron HCl (Zofran Inj) 4 mg Q6H PRN IV 12/11/16 18:45 01/10/17 18:44 Docusate Sodium (coLACE CAP) 100 mg BID PO 12/11/16 20:00 01/10/17 20:59 12/14/16 07:25 100 MG Morphine Sulfate (MoRPHine SULFATE INJ) 2 mg Q2H PRN IV 12/11/16 18:45 12/25/16 18:44 12/11/16 22:21 2 MG Heparin Sodium (Porcine) (Heparin Sq 5000 Unit/0.5ml) 5,000 unit Q12 SQ 12/13/16 09:00 01/12/17 08:59 12/14/16 07:29 5,000 UNIT Objective Vital Signs Date Time Temp Pulse Resp B/P Pulse Ox O2 Delivery O2 Flow Rate FiO2 12/14/16 15:24 36.6 68 16 103/65 95 Room Air 12/14/16 08:45 Room Air 12/14/16 07:56 36.3 70 18 150/79 95 Room Air 12/14/16 00:16 36.6 72 18 142/76 95 Room Air 12/13/16 20:11 Room Air Physical Exam General Appearance: WD/WN, no apparent distress Eyes: normal inspection, sclerae normal ENT: normal ENT inspection, pharynx normal Neck: supple, trachea midline Respiratory/Chest: lungs clear, normal breath sounds, no respiratory distress Cardiovascular: regular rate, rhythm, no gallop, no murmur Abdomen: normal bowel sounds, non tender, soft, no organomegaly Extremities: no calf tenderness, + inflammation Neurologic/Psychiatric: alert, + disoriented Skin: normal color, no rash, + pertinent finding (Improving lower extremity erythema) Lymphatic: no adenopathy Laboratory Results Last 24 Hours Test 12/14/16 06:50 White Blood Count 5.95 K/uL Red Blood Count 3.45 M/uL Hemoglobin 10.5 g/dL Hematocrit 32.2 % Mean Corpuscular Volume 93.3 fL Mean Corpuscular Hemoglobin 30.4 pg Mean Corpuscular Hemoglobin Concent 32.6 g/dl Platelet Count 276 K/uL Mean Platelet Volume 9.6 fL Neutrophils (%) (Auto) 67.7 % Lymphocytes (%) (Auto) 14.5 % Monocytes (%) (Auto) 14.1 % Eosinophils (%) (Auto) 1.7 % Basophils (%) (Auto) 0.3 % Neutrophils # (Auto) 4.03 K/uL Lymphocytes # (Auto) 0.86 K/uL Monocytes # (Auto) 0.84 K/uL Eosinophils # (Auto) 0.10 K/uL Basophils # (Auto) 0.02 K/uL RDW Standard Deviation 49.9 fL RDW Coefficient of Variation 14.6 % Immature Granulocyte % (Auto) 1.7 % Immature Granulocyte # (Auto) 0.10 K/uL Sodium Level 136 mmol/L Potassium Level 4.6 mmol/L Chloride Level 98 mmol/L Carbon Dioxide Level 27 mmol/L Anion Gap 11.0 mmol/L Blood Urea Nitrogen 56 mg/dl Creatinine 3.70 mg/dl Est Creatinine Clear Calc Drug Dose 7.7 ml/min Estimated GFR () 12.1 Estimated GFR (Non- 10.5 BUN/Creatinine Ratio 15.1 Random Glucose 82 mg/dl Calcium Level 9.0 mg/dl Total Creatine Kinase 62 U/L Assessment and Plan Patient with right lower extremity cellulitis in the setting of chronic lymphedema, as well as acute kidney injury, and recent C difficile infection. Given allergies to penicillin and vancomycin, daptomycin appropriate therapy with dose adjusted for renal insufficiency. Patient without significant diarrhea at present, and daptomycin not usually associated with C difficile infection.length of IV antibiotics will be determined by clinical response, likely 1-2 more doses.
[2016-12-14] MEDS: CEROVITE ADV FORMULA TAB PO SCH (21:12)
[2016-12-14] MEDS: CHOLECALCIFEROL 1000 INTER.UNIT TAB PO SCH (21:12)
[2016-12-14 21:13] VITALS: BP 175/85; PULSE 69
[2016-12-14] MEDS ORDERED: DEXAMETHASONE CONC SOLN 3.75 MG, NYSTATIN SUSP 30 ML, DiphenhydrAMINE HCL SYRUP 300 MG,... PO SCH ×5 (21:30)
[2016-12-14] MEDS ORDERED: ARTIFICIAL TEARS OP SOLN OP PRN ×2 (22:45)
[2016-12-14 22:47] VITALS: BP 141/72; PULSE 68; TEMP 36.6; O2SAT 95
[2016-12-15] MEDS: LEVOTHYROXINE 50 MCG TAB PO SCH (06:07)
[2016-12-15 07:03] LABS: BUN/CREATININE RATIO 16.8 (10-20); CALCIUM 8.9 mg/dl (8.5-10.1); CREATININE 2.9 mg/dl (0.60-1.20); POTASSIUM 4.8 mmol/L (3.5-5.1)
[2016-12-15 07:09] LABS: PHOSPHORUS 2.8 mg/dl (2.5-4.9)
[2016-12-15] MEDS ORDERED: MAGIC MOUTHWASH PO SCH (08:00)
[2016-12-15] MEDS: AMMONIUM LACTATE 12% LOTION 225 GM BTL EXT SCH ×2 (08:00→19:51)
[2016-12-15 08:05] VITALS: BP 159/77; PULSE 69; TEMP 36.4; O2SAT 96
[2016-12-15] MEDS: MoRPHine SULFATE IR 15 MG TAB (IMMEDIATE RELEASE) PO PRN (08:27)
[2016-12-15] MEDS: CARVEDILOL 3.125 MG TAB PO SCH ×2 (08:28→19:51)
[2016-12-15] MEDS: CARBIDOPA/LEVODOPA 25/100MG TAB PO SCH ×2 (08:28→19:51)
[2016-12-15] MEDS: PANTOprazole SOD 40 MG TAB PO SCH (08:28)
[2016-12-15] MEDS: IPRATROPIUM BROMIDE/ALBUTEROL respimat INH INH SCH ×4 (08:29→19:51)
[2016-12-15] MEDS: DOCUSATE SODIUM 100 MG CAP PO SCH ×2 (08:29→19:51)
[2016-12-15] MEDS: LACTOBACILLUS ACIDOPHILUS (FLORANEX) TAB PO SCH ×3 (08:29→18:08)
[2016-12-15] MEDS: ASPIRIN 81 MG ECTAB PO SCH (08:29)
[2016-12-15] MEDS: DEXAMETHASONE CONC SOLN 3.75 MG, NYSTATIN SUSP 30 ML, DiphenhydrAMINE HCL SYRUP 300 MG,... PO SCH ×15 (09:00→19:51)
[2016-12-15] MEDS: HEPARIN SOD 5000 UNIT/0.5 ML CARP SQ SCH (09:14)
--- NOTE | 2016-12-15 11:14 | Nephrology Progress Note ---
Nephrology Progress Note Date of Service Dec 15, 2016. Chief Complaint KOREY Subjective No acute events overnight. No complaints this morning. Planned discharge later today. Appetite good. No urinary complaints. No shortness of breath. Review of Systems A complete review of systems was performed. Pertinent positives are noted above. All other systems are negative. Vital Signs Last 8 Hrs Date Time Temp Pulse Resp B/P Pulse Ox O2 Delivery O2 Flow Rate FiO2 12/15/16 08:05 36.4 69 18 159/77 96 Room Air 12/15/16 07:52 Room Air I & O 24-Hour Column 12/15/16 08:00 Intake Total 430 ml Output Total 400 ml Balance 30 ml Last Recorded Weight Weight (Kilograms): 58.000 Physical Exam General Appearance: WD/WN, no apparent distress Head: normocephalic, atraumatic Eyes: normal inspection, sclerae normal ENT: normal ENT inspection, pharynx normal Neck: supple, no JVD Respiratory/Chest: lungs clear, no respiratory distress, no accessory muscle use Cardiovascular: regular rate, rhythm, no murmur Abdomen/GI: non tender, soft Extremities/Musculoskelatal: normal inspection, + pedal edema Neurologic/Psych: alert, oriented x 3 Family History FH: heart disease Hypertension Kidney disease Kidney stones Social History Smoking Status: Never smoker Smokeless Tobacco Use: No Alcohol Use: none Drug Use: none Marital Status: Housing Status: lives with family Occupation: retired Laboratory Results Past 24 Hours 12/15/16 06:10 Test 12/15/16 06:10 Anion Gap 8.0 mmol/L (3-11) Est Creatinine Clear Calc Drug Dose 9.9 ml/min Estimated GFR () 16.3 Estimated GFR (Non- 14.1 BUN/Creatinine Ratio 16.8 (10-20) Calcium Level 8.9 mg/dl (8.5-10.1) Phosphorus Level 2.8 mg/dl (2.5-4.9) Albumin 2.5 gm/dl (3.4-5.0) Allergies Coded Allergies: Codeine (Verified Allergy, Mild, 12/11/16) Penicillins (Verified Allergy, Mild, ., 12/11/16) tolerated cefepime Banana (Verified Allergy, Unknown, GI symptoms, 12/11/16) Erythromycin (Verified Allergy, Unknown, ., 12/11/16) Sulfa Antibiotics (Verified Allergy, Unknown, Unknown, 12/11/16) Vancomycin (Verified Allergy, Unknown, ., 12/11/16) Cantaloupe (Verified Adverse Reaction, Unknown, GI SYMPTOMS FROM UNSPECIFIED MELONS, 12/11/16) Medications Current Inpatient Medications Medications (Trade) Dose Ordered Sig/Zack Route Start Time Stop Time Status Last Admin Dose Admin Acetaminophen (Tylenol Tab) 650 mg Q4H PRN PO 12/11/16 18:45 01/10/17 18:44 Zolpidem Tartrate (Ambien Tab) 5 mg HSZ PRN PO 12/11/16 18:45 01/10/17 18:44 Aspirin (Ecotrin Tab) 81 mg QAM PO 12/12/16 08:00 01/11/17 08:59 12/15/16 08:29 81 MG Carbidopa/Levodopa (Sinemet 25/ 100MG Tab) 1 tab BID PO 12/11/16 20:00 01/10/17 20:59 12/15/16 08:28 1 TAB Carvedilol (Coreg Tab) 9.375 mg BID PO 12/11/16 20:00 01/10/17 20:59 12/15/16 08:28 9.375 MG Cholecalciferol (Vitamin D Tab) 1,000 inter.unit QPM PO 12/11/16 21:00 01/10/17 20:59 12/14/16 21:12 1,000 INTER.UNIT Albuterol/ Ipratropium (Combivent Respimat Inh) 1 puffs QID INH 12/12/16 08:00 01/11/17 07:59 12/15/16 08:29 1 PUFFS Levothyroxine Sodium (Synthroid Tab) 50 mcg DAILYBB PO 12/12/16 06:30 01/11/17 06:59 12/15/16 06:07 50 MCG Morphine Sulfate (MoRPHine SULFATE IR TAB) 22.5 mg TID PRN PO 12/11/16 18:45 12/25/16 18:44 12/15/16 08:27 22.5 MG Multivitamins/ Minerals (Multivitamin W/ Minerals Tab) 1 tab QPM PO 12/11/16 21:00 01/10/17 20:59 12/14/16 21:12 1 TAB Pantoprazole Sodium (Protonix Tab) 40 mg QAM PO 12/12/16 08:00 01/11/17 08:59 12/15/16 08:28 40 MG Prednisone (PredniSONE TAB) 10 mg QAM PO 12/12/16 08:00 01/11/17 08:59 12/15/16 08:28 10 MG Ammonium Lactate (Lac-Hydrin) 1 appl BID EXT 12/11/16 20:00 01/10/17 20:59 12/15/16 08:00 1 APPL Lactobacillus Acidophilus (Floranex Tab) 4 tab TIDM PO 12/12/16 08:00 01/11/17 07:59 12/15/16 08:29 4 TAB Lorazepam (Ativan Inj) 0.5 mg Q4H PRN IV 12/11/16 18:45 01/10/17 18:44 Magnesium Hydroxide (Milk Of Magnesia Susp) 30 ml Q6H PRN PO 12/11/16 18:45 01/10/17 18:44 Bisacodyl (Dulcolax Supp) 10 mg DAILY PRN [place] 12/11/16 18:45 01/10/17 18:44 Diphenhydramine HCl (Benadryl Inj) 25 mg Q4H PRN IV 12/11/16 18:45 01/10/17 18:44 Al Hydrox/Mg Hydrox/ Simethicone 15 ml 15 ml Q4H PRN PO 12/11/16 18:45 01/10/17 18:44 Promethazine HCl/ Sodium Chloride (Phenergan Inj/ Nss 50ml) 50.5 ml @ 202 mls/hr Q4H PRN IV 12/11/16 18:45 01/10/17 18:44 Ondansetron HCl (Zofran Inj) 4 mg Q6H PRN IV 12/11/16 18:45 01/10/17 18:44 Docusate Sodium (coLACE CAP) 100 mg BID PO 12/11/16 20:00 01/10/17 20:59 12/15/16 08:29 100 MG Morphine Sulfate (MoRPHine SULFATE INJ) 2 mg Q2H PRN IV 12/11/16 18:45 12/25/16 18:44 12/11/16 22:21 2 MG Heparin Sodium (Porcine) 5,000 unit Q12 SQ 12/13/16 09:00 01/12/17 08:59 12/15/16 09:14 5,000 UNIT Dexamethasone/ Nystatin/ Diphenhydramine HCl/Sucrose/ Microcrystalline Cellulose/Barcode (Decadron Conc Soln/Mycostatin Susp/Benadryl Syrup/Ora-Sweet Syrup/Ora-Plus Susp. Vehicle) TID PO 12/15/16 09:00 01/14/17 08:59 12/15/16 09:00 2.5 ML Artificial Tears (Artificial Tears) 2 drops QID PRN OP 12/14/16 22:45 01/13/17 22:44 Benzocaine (Orajel 2% Oral Gel) 1 appln QID MT 12/15/16 12:00 01/14/17 11:59 Impression (1) Acute kidney injury superimposed on chronic kidney disease (2) Hyperkalemia, diminished renal excretion (3) Cellulitis of right leg (4) Hypertension (5) Hyperphosphatemia Marli is an 86-year-old female with past medical history of hypertension, stage 3 /4 chronic kidney disease, baseline creatinine 1.6-2.0, history of recurrent acute kidney injury, recent C diff colitis admitted to the hospital with dehydration secondary to vomiting, acute kidney injury and right LE cellulitis. She describes a history of reflux and vomiting associated with a hiatal hernia and states that she has refused upper endoscopy in the past. On admission creatinine was 5.1 with a potassium of 5.6. Urinalysis was negative for proteinuria or hematuria. CT scan abdomen pelvis negative for postrenal obstruction, renal mass or stone. Acute kidney injury most likely secondary to ATN and prerenal due to dehydration and concomitant use all of diuretics. Volume status is currently appropriate. Creatinine continuing to show evidence of renal recovery. Started on daptomycin for right lower extremity cellulitis. . Recommendations --Maintain even fluid balance. Continue to hold diuretics --Document I/O's --Medications currently appropriately dosed for renal function --Renal diet --Follow up with Dr. Bojorquez in the nephrology clinic in 1-2 weeks --Check metabolic profile 2-3 days prior to follow up
--- NOTE | 2016-12-15 11:46 | Infectious Disease Progress Nt ---
Progress Note Date of Service Dec 15, 2016. Subjective Pt evaluation today including: conversation w/ patient, physical exam, chart review, lab review, review of studies, conversation w/ security consultant, review of inpatient medication list patient appears comfortable, no obvious problems overnight. Remains afebrile. Plans for discharge later today. All Other Systems: Reviewed and Negative Medications A Current Inpatient Medications Medications (Trade) Dose Ordered Sig/Zack Route Start Time Stop Time Status Last Admin Dose Admin Acetaminophen (Tylenol Tab) 650 mg Q4H PRN PO 12/11/16 18:45 01/10/17 18:44 Zolpidem Tartrate (Ambien Tab) 5 mg HSZ PRN PO 12/11/16 18:45 01/10/17 18:44 Aspirin (Ecotrin Tab) 81 mg QAM PO 12/12/16 08:00 01/11/17 08:59 12/15/16 08:29 81 MG Carbidopa/Levodopa (Sinemet 25/ 100MG Tab) 1 tab BID PO 12/11/16 20:00 01/10/17 20:59 12/15/16 08:28 1 TAB Carvedilol (Coreg Tab) 9.375 mg BID PO 12/11/16 20:00 01/10/17 20:59 12/15/16 08:28 9.375 MG Cholecalciferol (Vitamin D Tab) 1,000 inter.unit QPM PO 12/11/16 21:00 01/10/17 20:59 12/14/16 21:12 1,000 INTER.UNIT Albuterol/ Ipratropium (Combivent Respimat Inh) 1 puffs QID INH 12/12/16 08:00 01/11/17 07:59 12/15/16 08:29 1 PUFFS Levothyroxine Sodium (Synthroid Tab) 50 mcg DAILYBB PO 12/12/16 06:30 01/11/17 06:59 12/15/16 06:07 50 MCG Morphine Sulfate (MoRPHine SULFATE IR TAB) 22.5 mg TID PRN PO 12/11/16 18:45 12/25/16 18:44 12/15/16 08:27 22.5 MG Multivitamins/ Minerals (Multivitamin W/ Minerals Tab) 1 tab QPM PO 12/11/16 21:00 01/10/17 20:59 12/14/16 21:12 1 TAB Pantoprazole Sodium (Protonix Tab) 40 mg QAM PO 12/12/16 08:00 01/11/17 08:59 12/15/16 08:28 40 MG Prednisone (PredniSONE TAB) 10 mg QAM PO 12/12/16 08:00 01/11/17 08:59 12/15/16 08:28 10 MG Ammonium Lactate (Lac-Hydrin) 1 appl BID EXT 12/11/16 20:00 01/10/17 20:59 12/15/16 08:00 1 APPL Lactobacillus Acidophilus (Floranex Tab) 4 tab TIDM PO 12/12/16 08:00 01/11/17 07:59 12/15/16 08:29 4 TAB Lorazepam (Ativan Inj) 0.5 mg Q4H PRN IV 12/11/16 18:45 01/10/17 18:44 Magnesium Hydroxide (Milk Of Magnesia Susp) 30 ml Q6H PRN PO 12/11/16 18:45 01/10/17 18:44 Bisacodyl (Dulcolax Supp) 10 mg DAILY PRN ID 12/11/16 18:45 01/10/17 18:44 Diphenhydramine HCl (Benadryl Inj) 25 mg Q4H PRN IV 12/11/16 18:45 01/10/17 18:44 Al Hydrox/Mg Hydrox/ Simethicone 15 ml 15 ml Q4H PRN PO 12/11/16 18:45 01/10/17 18:44 Promethazine HCl/ Sodium Chloride (Phenergan Inj/ Nss 50ml) 50.5 ml @ 202 mls/hr Q4H PRN IV 12/11/16 18:45 01/10/17 18:44 Ondansetron HCl (Zofran Inj) 4 mg Q6H PRN IV 12/11/16 18:45 01/10/17 18:44 Docusate Sodium (coLACE CAP) 100 mg BID PO 12/11/16 20:00 01/10/17 20:59 12/15/16 08:29 100 MG Morphine Sulfate (MoRPHine SULFATE INJ) 2 mg Q2H PRN IV 12/11/16 18:45 12/25/16 18:44 12/11/16 22:21 2 MG Heparin Sodium (Porcine) 5,000 unit Q12 SQ 12/13/16 09:00 01/12/17 08:59 12/15/16 09:14 5,000 UNIT Dexamethasone/ Nystatin/ Diphenhydramine HCl/Sucrose/ Microcrystalline Cellulose/Barcode (Decadron Conc Soln/Mycostatin Susp/Benadryl Syrup/Ora-Sweet Syrup/Ora-Plus Susp. Vehicle) TID PO 12/15/16 09:00 01/14/17 08:59 12/15/16 09:00 2.5 ML Artificial Tears (Artificial Tears) 2 drops QID PRN OP 12/14/16 22:45 01/13/17 22:44 Benzocaine (Orajel 2% Oral Gel) 1 appln QID MT 12/15/16 12:00 01/14/17 11:59 Objective Vital Signs Date Time Temp Pulse Resp B/P Pulse Ox O2 Delivery O2 Flow Rate FiO2 12/15/16 08:05 36.4 69 18 159/77 96 Room Air 12/15/16 07:52 Room Air 12/15/16 01:06 Room Air 12/14/16 22:47 36.6 68 18 141/72 95 Room Air 12/14/16 21:13 69 175/85 12/14/16 16:00 95 Room Air 12/14/16 15:24 36.6 68 16 103/65 95 Room Air Physical Exam General Appearance: WD/WN, no apparent distress Eyes: normal inspection, sclerae normal ENT: normal ENT inspection, pharynx normal Neck: supple, trachea midline Respiratory/Chest: lungs clear, normal breath sounds, no respiratory distress Cardiovascular: regular rate, rhythm, no gallop, no murmur Abdomen: normal bowel sounds, non tender, soft, no organomegaly Extremities: non-tender, no calf tenderness, + pedal edema Neurologic/Psychiatric: alert, oriented x 3 Skin: normal color, no rash, + pertinent finding Laboratory Results Last 24 Hours Test 12/15/16 06:10 Sodium Level 140 mmol/L Potassium Level 4.8 mmol/L Chloride Level 103 mmol/L Carbon Dioxide Level 29 mmol/L Anion Gap 8.0 mmol/L Blood Urea Nitrogen 49 mg/dl Creatinine 2.90 mg/dl Est Creatinine Clear Calc Drug Dose 9.9 ml/min Estimated GFR () 16.3 Estimated GFR (Non- 14.1 BUN/Creatinine Ratio 16.8 Random Glucose 76 mg/dl Calcium Level 8.9 mg/dl Phosphorus Level 2.8 mg/dl Albumin 2.5 gm/dl Assessment and Plan Patient with right lower extremity cellulitis in the setting of chronic lymphedema, as well as acute kidney injury, and recent C difficile infection. appears to have responded well to IV daptomycin, for discharge later today.
--- NOTE | 2016-12-15 11:47 | Discharge Instructions ---
Discharge Instructions Admission Reason for Admission: Arf (Acute Renal Failure), Cellulitis Of Right Leg Discharge Discharge Diagnosis / Problem: Acute on chronic kidney disease. Leg swelling. Discharge Goals Goal(s): Improve disease control Activity Recommendations Activity Limitations: per Instructions/Follow-up section Exercise/Sports Limitations: none Shower/Bathe: no limitations Driving or Machine Use: no limitations Follow up with Dr Bojorquez in 1-2 weeks. Until then, do NOT take the medication BUMEX, and talk about this with Dr Bojorquez as well. Follow up with Dr Durand in the next 1-2 weeks. You will also have Home Health arranged for at home. . Current Hospital Diet Patient's current hospital diet: Regular Diet Discharge Diet Recommended Diet: Regular Diet Pending Studies Studies pending at discharge: no Medical Emergencies . Who to Call and When: Medical Emergencies: If at any time you feel your situation is an emergency, please call 911 immediately. . Non-Emergent Contact Non-Emergency issues call your: Primary Care Provider, Grey Roll Man Call Non-Emergent contact if: you have a fever, your pain is not controlled, your pain is worsening, your pain is unusual for you, your pain is concerning you, you have any medication questions . . "Provider Documentation" section prepared by Rolanda Escudero. VTE Core Measure Inpt VTE Proph given/why not?: Unfractionated heparin SQ, SCD's
--- NOTE | 2016-12-15 11:54 | Discharge Summary ---
Discharge Summary Admission Date: Dec 11, 2016 at 17:53 Discharge Date: Dec 15, 2016 Discharge Disposition: Home with services Principal Diagnosis: Acute on chronic renal insufficiency Problems/Secondary Diagnoses: Chronic bilateral venous stasis Immunizations: Have You Had Influenza Vaccine: No History of Tetanus Vaccine?: Yes Tetanus Immunization Date: Apr 06, 2006 History of Pneumococcal: No History of Hepatitis B Vaccine: Unknown Consultations: Nephrology Infectious Diseases (Rolanda Escudero MD) Medication Reconciliation Continued Medications: Aspirin (Aspirin Ec) 81 Mg Tab 81 MG PO QAM Carbidopa/Levodopa (Sinemet 25MG/100MG) Tab 1 TAB PO BID, TAB Carvedilol (Carvedilol) 6.25 Mg Tab 9.375 MG PO BID for 30 Days, TAB Cholecalciferol (Vitamin D 1000 Unit) 1,000 Unit Cap 1000 INTER.UNIT PO QPM, CAP Ipratropium-Albuterol (Combivent Respimat) 1 Aer Aer 1 PUFFS INH Q6, #1 INHALER Lactic Acid (Ammonium Lactate Cream 12%) Unknown Strength Cr 1 APPLN TOP BID, #385 apply to dry skin to arms,and back Levothyroxine Sodium (Synthroid) 50 Mcg Tab 50 MCG PO QAM, TAB Morphine Sulfate (Morphine Sulfate Ir) 15 Mg Tab 1.5 TABS PO TID PRN for Pain, #100 Multiple Vitamins W/ Minerals (Centrum) 1 Tab Tab 1 TAB PO QPM Pantoprazole (Protonix) 40 Mg Tab 40 MG PO QAM, TAB Prednisone (Prednisone) 5 Mg Tab 5 MG PO QAM Probiotic Product (Align) 4 Mg Cap 4 MG PO DAILY Discontinued Medications: Bumetanide (Bumetanide) 1 Mg Tab 1 MG PO BID, #60 Potassium Chloride (Potassium Chloride Er) 10 Meq Tab 10 MEQ PO QAM, TAB Referrals At Discharge Follow up Referrals: Family Practice Referral - Within 1-2 Weeks with Mil Durand M.D. Ramp Manager Referral - Within 1-2 Weeks with Mil Bojorquez M.D. Discharge Exam Review of Systems: Constitutional: No chills, No fever, No sweats, No weakness, No weight loss Respiratory: No cough, No dyspnea at rest, No dyspnea on exertion, No shortness of breath, No sputum, No wheezing Cardiovascular: No PND, No chest pain, No claudication, No edema, No palpitations Abdomen: No GI bleeding, No constipation, No diarrhea, No nausea, No pain, No vomiting Physical Exam: General Appearance: WD/WN, no apparent distress Eyes: normal inspection ENT: hearing grossly normal Neck: supple, no JVD Respiratory/Chest: lungs clear, normal breath sounds, no respiratory distress Cardiovascular: regular rate, rhythm, no murmur, normal peripheral pulses Abdomen / GI: normal bowel sounds, non tender, soft Extremities: + pedal edema (Bilateral pedal edema upto mid-banda with chronic hemosiderin deposition. No areas of erythema or warmth to touch. ) Neurologic/Psychiatric: alert, normal mood/affect, normal reflexes, oriented x 3 (Rolanda Escudero MD) Review of Systems: Constitutional: No fever Respiratory: No shortness of breath Cardiovascular: No chest pain Physical Exam: General Appearance: no apparent distress Respiratory/Chest: lungs clear, no respiratory distress Cardiovascular: regular rate, rhythm Extremities: + pertinent finding (both legs with venous stasis and fluid filled blister on right anterior leg) Neurologic/Psychiatric: alert, + pertinent finding (oriented to place and person) (nAabel Jennings M.D.) Hospital Course Marli is an 86-year-old female with past medical history significant for stage 3/ 4 chronic kidney disease, recurrent history of acute kidney injury, hypertension , recent C diff infection admitted to the hospital with vomiting and volume depletion. She was treated with metronidazole at that time and her diarrhea resolved. Over the 3 days prior to admission she was having intractable nausea and vomiting, with decreased urine output. Her posterior R leg had been swollen and her home health nurse was concerned for cellulitis or a DVT, so she was brought to the hospital. She was found to essentially be volume depleted, and ended up developing an KOREY with a creatinine of 5.0. Her Bumex was held and her creatinine slowly trended back down to baseline. Her nausea and vomiting improved with anti-emetics and fluid rehydration. She was reviewed by PT/OT and was deemed safe to go home with home health. 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 - Reviewed by wound care - For home health nurse to place ZULLY bandages on gently CAD - Continued Aspirin Hypothyroidism - Continued levothyroxine 50mcg She was discharged 12/15/16 in good condition. Total Time Spent: Greater than 30 minutes This includes examination of the patient, discharge planning, medication reconciliation, and communication with other providers. (Rolanda Escudero MD) I have reviewed the medical record and performed a history and physical examination of this patient today. I have discussed the case with Dr Escudero. The above note reflects my findings, conclusions, and recommendations Need to have aggressive management of venous stasis to prevent cellulitis and overdiuresis. Keep legs propped and ZULLY wrap. Total Time Spent: Greater than 30 minutes (35) (Anabel Jennings M.D.) Discharge Instructions Please refer to the electronic Patient Visit Report (Discharge Instructions) for additional information. (Rolanda Escudero MD) Additional Copies To Mil Durand M.D.
[2016-12-15] MEDS: BENZOCAINE 20% (ORAJEL) 11.9 GM TUBE MT SCH ×3 (14:42→19:51)
[2016-12-15 16:41] VITALS: BP 160/83; PULSE 66; TEMP 36.6; O2SAT 97
== END 2016-12-15 21:18 | disposition home health service (06) | DRG 683 ==
LOC: ENRESERVDT → ENRESERVTM → EDBD 12:04 → C.EDC 12:06 → C.MS4W 17:53
PROVIDERS: ADMIT Hospitalist; ATTEND Family Medicine
DX: N17.9 Acute kidney failure, unspecified (principal); L03.115 Cellulitis of right lower limb; I12.9 Hypertensive chronic kidney disease with stage 1 through stage 4 chronic kidney disease, or unspecified chronic kidney disease; Z87.891 Personal history of nicotine dependence; Z88.0 Allergy status to penicillin; Z88.2 Allergy status to sulfonamides; I87.8 Other specified disorders of veins; N18.3 Chronic kidney disease, stage 3 (moderate); E86.0 Dehydration; E03.9 Hypothyroidism, unspecified

== ENCOUNTER → 2016-12-19 | Outpatient (CLI) | payer OTHER, MEDICARE ==
[~2016-12-19] MED LIST changes: -ALBUAER19 INH; -BMX1 PO; -POTA-74 PO; -QSTP PO; -SERT1TAB88 PO; -VNCS125 PO; -lidocaine patch TD
[2016-12-19 16:27] LABS: BLOOD UREA NITROGEN 28 mg/dl (7-18); BUN/CREATININE RATIO 12.1 (10-20); CARBON DIOXIDE 30 mmol/L (21-32); CHLORIDE 104 mmol/L (98-107); GLUCOSE 112 mg/dl (70-99); SODIUM 140 mmol/L (136-145)
== END | disposition home or self-care (01) ==
LOC: C.LABSPEC 10:25
PROVIDERS: ATTEND Family Medicine
DX: N18.9 Chronic kidney disease, unspecified (principal)

== ENCOUNTER → 2016-12-26 | Outpatient (CLI) | payer OTHER, MEDICARE ==
[2016-12-26 19:02] LABS: HEMATOCRIT 36.6 % (37-47); MEAN CELL VOLUME 95.3 fL (80-100); MEAN CORPUSCULAR HEMOGLOBIN 30.2 pg (25-34); MEAN CORPUSCULAR HGB CONC 31.7 g/dl (32-36); MEAN PLATELET VOLUME 9.4 fL (7.4-10.4); PLATELET COUNT 328 K/uL (130-400); RED BLOOD COUNT 3.84 M/uL (4.2-5.4)
[2016-12-26 19:33] LABS: BLOOD UREA NITROGEN 21 mg/dl (7-18); BUN/CREATININE RATIO 8.7 (10-20); CALCIUM 9.1 mg/dl (8.5-10.1); CARBON DIOXIDE 27 mmol/L (21-32); CHLORIDE 99 mmol/L (98-107); GLUCOSE 97 mg/dl (70-99); PHOSPHORUS 3.1 mg/dl (2.5-4.9); POTASSIUM 3.8 mmol/L (3.5-5.1); SODIUM 140 mmol/L (136-145)
== END | disposition home or self-care (01) ==
LOC: C.LAB 18:40
PROVIDERS: ATTEND Internal Medicine Nephrology
DX: D64.9 Anemia, unspecified (principal); N18.3 Chronic kidney disease, stage 3 (moderate); I12.9 Hypertensive chronic kidney disease with stage 1 through stage 4 chronic kidney disease, or unspecified chronic kidney disease; E55.9 Vitamin D deficiency, unspecified; E88.09 Other disorders of plasma-protein metabolism, not elsewhere classified

== ENCOUNTER → 2017-02-06 | Outpatient (CLI) | payer OTHER, MEDICARE ==
[2017-02-06 18:43] LABS: HEMATOCRIT 38.1 % (37-47); MEAN CELL VOLUME 92.9 fL (80-100); MEAN CORPUSCULAR HEMOGLOBIN 29.8 pg (25-34); MEAN PLATELET VOLUME 9.2 fL (7.4-10.4); PLATELET COUNT 257 K/uL (130-400); WHITE BLOOD COUNT 6.65 K/uL (4.8-10.8)
[2017-02-06 18:45] LABS: URINE APPEARANCE CLEAR (CLEAR); URINE BILIRUBIN NEG (NEG); URINE COLOR YELLOW; URINE NITRITE NEG (NEG); URINE SPECIFIC GRAVITY 1.016 (1.000-1.030); UROBILINOGEN NEG (NEG)
[2017-02-06 18:47] LABS: MANUAL MICROSCOPIC REQUIRED? NO; REVIEW REQ? YES
[2017-02-06 19:10] LABS: URINE EPITHELIAL CELL AUTO >30 /lpf (0-5); URINE PATH CASTS 0-3 GRANULAR CASTS /lpf (0)
[2017-02-06 19:11] LABS: URINE PROTIEN/CREAT RATIO 0.1 (0-0.2); URINE TOTAL PROTEIN 15.8 mg/dl (0-11.9)
[2017-02-06 19:13] LABS: BLOOD UREA NITROGEN 39 mg/dl (7-18); BUN/CREATININE RATIO 18.8 (10-20); CALCIUM 9.1 mg/dl (8.5-10.1); CARBON DIOXIDE 31 mmol/L (21-32); CHLORIDE 99 mmol/L (98-107); GLUCOSE 135 mg/dl (70-99); PHOSPHORUS 3.9 mg/dl (2.5-4.9); POTASSIUM 4.6 mmol/L (3.5-5.1); SODIUM 139 mmol/L (136-145)
[2017-02-06 19:58] LABS: THYROID STIMULATING HORMONE 0.466 uIu/ml (0.300-4.500)
== END | disposition home or self-care (01) ==
LOC: C.LAB 17:57
PROVIDERS: ATTEND Internal Medicine Nephrology
DX: E03.9 Hypothyroidism, unspecified (principal); I12.9 Hypertensive chronic kidney disease with stage 1 through stage 4 chronic kidney disease, or unspecified chronic kidney disease; N18.3 Chronic kidney disease, stage 3 (moderate); D64.9 Anemia, unspecified; E55.9 Vitamin D deficiency, unspecified; R60.9 Edema, unspecified

== ENCOUNTER → 2017-04-10 | Outpatient (CLI) | payer OTHER, MEDICARE ==
[~2017-04-10] MED LIST changes: -CARB25TA12 PO; -PANT40TA PO
[2017-04-10 16:43] LABS: HEMATOCRIT 40.4 % (37-47); MEAN CELL VOLUME 96.7 fL (80-100); MEAN CORPUSCULAR HEMOGLOBIN 28.9 pg (25-34); MEAN PLATELET VOLUME 9.7 fL (7.4-10.4); PLATELET COUNT 266 K/uL (130-400); RED BLOOD COUNT 4.18 M/uL (4.2-5.4)
[2017-04-10 16:57] LABS: BLOOD UREA NITROGEN 35 mg/dl (7-18); BUN/CREATININE RATIO 18.2 (10-20); CALCIUM 8.9 mg/dl (8.5-10.1); CARBON DIOXIDE 33 mmol/L (21-32); CHLORIDE 102 mmol/L (98-107); GLUCOSE 118 mg/dl (70-99); PHOSPHORUS 3.8 mg/dl (2.5-4.9); POTASSIUM 4.5 mmol/L (3.5-5.1); SODIUM 142 mmol/L (136-145)
== END | disposition home or self-care (01) ==
LOC: C.LABBC 12:45
PROVIDERS: ATTEND Internal Medicine Nephrology
DX: N18.3 Chronic kidney disease, stage 3 (moderate) (principal); I12.9 Hypertensive chronic kidney disease with stage 1 through stage 4 chronic kidney disease, or unspecified chronic kidney disease; D64.9 Anemia, unspecified; R60.9 Edema, unspecified; E55.9 Vitamin D deficiency, unspecified

== ENCOUNTER → 2017-07-24 | Outpatient (CLI) | payer OTHER, MEDICARE ==
[2017-07-24 17:43] LABS: URINE APPEARANCE CLEAR (CLEAR); URINE BILIRUBIN NEG (NEG); URINE COLOR YELLOW; URINE NITRITE NEG (NEG); URINE PH 6.5 (4.5-7.5); URINE SPECIFIC GRAVITY 1.014 (1.000-1.030); UROBILINOGEN NEG (NEG)
[2017-07-24 17:44] LABS: REVIEW REQ? NO
[2017-07-24 17:45] LABS: MANUAL MICROSCOPIC REQUIRED? NO
[2017-07-24 17:51] LABS: URINE PROTIEN/CREAT RATIO 0.1 (0-0.2); URINE TOTAL PROTEIN 11.4 mg/dl (0-11.9)
[2017-07-24 18:22] LABS: HEMATOCRIT 39.5 % (37-47); MEAN CELL VOLUME 94.7 fL (80-100); MEAN CORPUSCULAR HEMOGLOBIN 30.2 pg (25-34); MEAN CORPUSCULAR HGB CONC 31.9 g/dl (32-36); MEAN PLATELET VOLUME 9.3 fL (7.4-10.4); PLATELET COUNT 250 K/uL (130-400); RED BLOOD COUNT 4.17 M/uL (4.2-5.4); WHITE BLOOD COUNT 7.17 K/uL (4.8-10.8)
[2017-07-24 18:33] LABS: BLOOD UREA NITROGEN 43 mg/dl (7-18); BUN/CREATININE RATIO 19.5 (10-20); CALCIUM 9.3 mg/dl (8.5-10.1); CARBON DIOXIDE 34 mmol/L (21-32); CHLORIDE 97 mmol/L (98-107); GLUCOSE 95 mg/dl (70-99); PHOSPHORUS 3.5 mg/dl (2.5-4.9); POTASSIUM 4.4 mmol/L (3.5-5.1); SODIUM 139 mmol/L (136-145)
== END | disposition home or self-care (01) ==
LOC: C.LAB1850 16:51
PROVIDERS: ATTEND Internal Medicine Nephrology
DX: I12.9 Hypertensive chronic kidney disease with stage 1 through stage 4 chronic kidney disease, or unspecified chronic kidney disease (principal); N18.3 Chronic kidney disease, stage 3 (moderate); D64.9 Anemia, unspecified; E55.9 Vitamin D deficiency, unspecified

== ENCOUNTER → 2017-09-25 | Outpatient (CLI) | payer OTHER, MEDICARE ==
[2017-09-25 17:09] LABS: BASO % 0.2 %; BASO ABS # 0.01 K/uL (0-0.2); COMPLETE YES; IG% 0.6 %; LYMPH % 14.8 %; LYMPH ABS # 0.96 K/uL (1.2-3.4); MEAN CELL VOLUME 96.6 fL (80-100); MEAN CORPUSCULAR HGB CONC 31.1 g/dl (32-36); MEAN PLATELET VOLUME 9.4 fL (7.4-10.4); MONO % 9.9 %; NEUT % 74.5 %; PLATELET COUNT 251 K/uL (130-400); RED BLOOD COUNT 3.83 M/uL (4.2-5.4); WHITE BLOOD COUNT 6.47 K/uL (4.8-10.8)
[2017-09-25 17:49] LABS: ALT/SGPT 24 U/L (12-78); BLOOD UREA NITROGEN 34 mg/dl (7-18); BUN/CREATININE RATIO 16.2 (10-20); CALCIUM 9.1 mg/dl (8.5-10.1); CARBON DIOXIDE 31 mmol/L (21-32); CHLORIDE 99 mmol/L (98-107); GLUCOSE 135 mg/dl (70-99); POTASSIUM 4.4 mmol/L (3.5-5.1); SODIUM 140 mmol/L (136-145)
[2017-09-25 18:08] LABS: ALB/GLOB RATIO 1.1 (0.9-2); ALKALINE PHOSPHATASE 45 U/L (45-117); AST/SGOT 21 U/L (15-37); THYROID STIMULATING HORMONE 0.879 uIu/ml (0.300-4.500); TOTAL IRON BINDING CAPACITY 350 mcg/dl (250-450)
== END | disposition home or self-care (01) ==
LOC: C.LABBC 12:39
PROVIDERS: ATTEND Family Medicine
DX: I10 Essential (primary) hypertension (principal); N18.3 Chronic kidney disease, stage 3 (moderate); F64.9 Gender identity disorder, unspecified; E55.9 Vitamin D deficiency, unspecified

== ENCOUNTER → 2018-01-29 | Outpatient (CLI) | payer OTHER, MEDICARE ==
[2018-01-29 19:12] LABS: HEMATOCRIT 36.2 % (37-47); HEMOGLOBIN 11.4 g/dL (12.0-16.0); MEAN CELL VOLUME 91.6 fL (80-100); MEAN CORPUSCULAR HEMOGLOBIN 28.9 pg (25-34); MEAN CORPUSCULAR HGB CONC 31.5 g/dl (32-36); MEAN PLATELET VOLUME 9.3 fL (7.4-10.4); PLATELET COUNT 240 K/uL (130-400); RED CELL DISTRIBUTION WIDTH CV 15.1 % (11.5-14.5); RED CELL DISTRIBUTION WIDTH SD 51.1 fL (36.4-46.3); WHITE BLOOD COUNT 6.74 K/uL (4.8-10.8)
[2018-01-29 19:28] LABS: ALBUMIN 3.3 gm/dl (3.4-5.0); BLOOD UREA NITROGEN 42 mg/dl (7-18); CALCIUM 9.2 mg/dl (8.5-10.1); CARBON DIOXIDE 29 mmol/L (21-32); CREATININE 1.92 mg/dl (0.60-1.20); GLUCOSE 86 mg/dl (70-99); POTASSIUM 4.4 mmol/L (3.5-5.1); SODIUM 138 mmol/L (136-145)
[2018-01-29 19:29] LABS: PHOSPHORUS 4.3 mg/dl (2.5-4.9)
== END | disposition home or self-care (01) ==
LOC: C.LAB 18:34
PROVIDERS: ATTEND Internal Medicine Nephrology
DX: N18.3 Chronic kidney disease, stage 3 (moderate) (principal); D64.9 Anemia, unspecified; E55.9 Vitamin D deficiency, unspecified; R60.9 Edema, unspecified

== ENCOUNTER → 2018-02-06 | Outpatient (CLI) | payer OTHER, MEDICARE ==
--- NOTE | 2018-02-06 09:45 | DIAGNOSTIC IMAGING REPORT ---
ABDOMEN LIMITED (US) CLINICAL HISTORY: 88 years-old Female presenting with ABDOMEN LIMITED. TECHNIQUE: Real-time grayscale and limited color Doppler ultrasound imaging of the abdomen limited to the right upper quadrant was performed. COMPARISON: CT from 12/11/2016 and ultrasound from 07/26/2015. FINDINGS: Pancreas: Pancreatic duct mildly dilated measuring 4 mm in the pancreatic body. Liver: Normal echogenicity and echotexture. No sonographic evidence of hepatic mass. Main portal vein patent with normal directional flow. Biliary: Intrahepatic biliary ductal dilatation noted diffusely. Common bile duct also dilated measuring up to 15 mm in diameter. Gallbladder: Surgically absent. Right kidney: Normal in appearance. No hydronephrosis. Ascites: None. Other: None. IMPRESSION: 1. Intrahepatic and extra hepatic biliary ductal dilatation. This could be due to a reservoir effect in the post cholecystectomy state. If is not consistent with the clinical setting, MRCP could be obtained for further evaluation if clinically indicated. 2. Mild pancreatic ductal dilatation, unchanged since 2014. Electronically signed by: Darío Wilson M.D. 02/06/2018 9:44 AM Dictated Date/Time: 02/06/2018 9:38 AM
== END | disposition home or self-care (01) ==
LOC: C.ULTR 08:43
PROVIDERS: ATTEND Family Medicine
DX: R10.13 Epigastric pain (principal)

== ENCOUNTER 2018-02-25 22:27 | Emergency (ER) | payer OTHER, MEDICARE ==
[~2018-02-25] VITALS: Ht 142.2 cm; Wt 51.0 kg
[~2018-02-25 22:27] MED LIST changes: -ASPI81TA28 PO; -MULTTAB5 PO; -PRED-301 PO
[2018-02-25 22:33] VITALS: TEMP 37.4; Ht 142.2 cm; Wt 51.0 kg
[2018-02-25] MEDS ORDERED: MULTTAB5 PO (23:02)
[2018-02-25] MEDS ORDERED: PRED-301 PO (23:02)
[2018-02-25] MEDS ORDERED: ASPI81TA28 PO (23:02)
--- NOTE | 2018-02-25 23:24 | EMERGENCY ROOM VISIT NOTE ---
History Report prepared by Karen: Mayco Zaldivar Under the Supervision of: Dr. Diana Shafer D.O. First contact with patient: 22:58 Chief Complaint: FEVER Stated Complaint: VOMITTING,FEVER History of Present Illness The patient is an 88 year old female who presents to the Emergency Room with complaints of intermittent general fever today. She notes vomiting once this morning. She notes that she has had a fever intermittently all day. She reports epigastric abdominal pain. She reports the abdominal pain is not constant, though she notes the pain is aggravating. She states that the abdominal pain has been ongoing for a while and she has informed her PCP. She denies any chest pain, shortness of breath, cough, or diarrhea. She is seeing a neurologist for tremors and she reports her tremors are worsening. Per family, the patient has been hospitalized recently for C. diff and MRSA. Per family, she had MRSA from a sore on her leg. She states that she has had blurry vision. She notes that her cat scratched her left upper thigh three days ago. She notes the wound on her thigh is not in any pain. Source of History: patient Onset: today Position: other (general) Quality: other (fever) Timing: intermittent Associated Symptoms: + vomiting, + abdominal pain, No cough, No chest pain, No SOB, No diarrhea Note: Notes wound to left thigh, blurry vision and speech issues. Review of Systems See HPI for pertinent positives & negatives. A total of 10 systems reviewed and were otherwise negative. Past Medical & Surgical Medical Problems: (1) abdominal pain (2) Acute kidney injury superimposed on chronic kidney disease (3) Asthma (4) Asthma exacerbation (5) C. difficile colitis (6) C. 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 (17) Fall (18) Fracture of left distal radius (19) Hyperkalemia, diminished renal excretion (20) Hyperphosphatemia (21) Hypertension (22) Hypertension (23) Left arm swelling (24) Left leg cellulitis (25) Left leg cellulitis (26) Left radial head fracture (27) Nausea and vomiting (28) Noninfected skin tear of left leg (29) Shortness of breath (30) Stable angina (31) Wheezing Surgical Problems: (1) H/O: hysterectomy (2) S/P appendectomy (3) S/P cholecystectomy Family History FH: heart disease Hypertension Kidney disease Kidney stones Social History Smoking Status: Never Smoker Smokeless Tobacco Use: No Alcohol Use: none Drug Use: none Marital Status: Housing Status: lives with family Occupation Status: employed ([employer]), retired Current/Historical Medications Scheduled Aspirin (Aspirin Ec), 81 MG PO QAM Azithromycin (Zithromax), 250 MG PO DAILY Carvedilol (Coreg), 6.25 MG PO BID Cholecalciferol (Vitamin D 1000 Unit), 1,000 INTER.UNIT PO QPM Coconut Oil (Bulk) (Coconut Oil), 1 APPLN TOP UD Doxepin Hcl (Sinequan), 10 MG PO BID Levothyroxine Sodium (Levothyroxine Sodium), 50 MCG PO QAM Multiple Vitamins W/ Minerals (Centrum), 1 TAB PO QPM Potassium Chloride (Potassium Chloride Er), 10 MEQ PO DAILY Prednisone (Prednisone), 5 MG PO QAM Probiotic Product (Align), 4 MG PO DAILY Torsemide (Torsemide), 20 MG PO BID Scheduled PRN Polyethylene Glycol-Propylene (Systane), 1 DROP OP QID PRN for Eye Irritation Allergies Coded Allergies: Codeine (Verified Allergy, Mild, 12/11/16) Penicillins (Verified Allergy, Mild, ., 12/11/16) tolerated cefepime Banana (Verified Allergy, Unknown, GI symptoms, 12/11/16) Erythromycin (Verified Allergy, Unknown, ., 12/11/16) Sulfa Antibiotics (Verified Allergy, Unknown, Unknown, 12/11/16) Vancomycin (Verified Allergy, Unknown, ., 12/11/16) Cantaloupe (Verified Adverse Reaction, Unknown, GI SYMPTOMS FROM UNSPECIFIED MELONS, 12/11/16) Physical Exam Vital Signs Date Time Temp Pulse Resp B/P (MAP) Pulse Ox O2 Delivery O2 Flow Rate FiO2 02/26/18 03:07 74 18 134/68 96 Room Air 02/26/18 00:24 82 18 95 Room Air 02/25/18 22:33 37.4 80 18 125/71 94 Room Air Physical Exam HEENT: Head - normocephalic and atraumatic Pupils are equal, round, and reactive to light. Extraocular eye muscles are intact, and sclera are anicteric. Nose - moist nasal mucosa without discharge. Mouth - dry buccal mucosa. Oropharynx is nonerythematous and there is no tonsillar exudate or edema noted. Neck: Supple; no JVD, nuchal rigidity, cervical lymphadenopathy. Heart: Regular rate and rhythm. There is a normal S1 and S2 with no murmurs, clicks, or gallops appreciated. Lungs: Clear to auscultation bilaterally with no wheezes, rales, or rhonchi. Abdomen: Soft, completely nontender, nondistended, with good bowel sounds. There are no palpable pulsatile masses or hepatosplenomegaly. There is no guarding, rigidity, or rebound noted. Extremities: No evidence of cyanosis, clubbing, or edema. There are easily palpable peripheral pulses. Skin tear with surrounding erythema secondary to cat scratch on left upper thigh Skin: warm and dry with poor turgor and no rashes. Medical Decision & Procedures ER Provider Diagnostic Interpretation: Radiology results as stated below per my review and interpretation: CHEST XR: No pulmonary infiltrates or pulmonary effusions. No cardiomegaly. Laboratory Results 02/25/18 00:10 Red Blood Count 3.97, Mean Corpuscular Volume 92.2, Mean Corpuscular Hemoglobin 28.2, Mean Corpuscular Hemoglobin Concent 30.6, Mean Platelet Volume 9.3, Neutrophils (%) (Auto) 64.2, Lymphocytes (%) (Auto) 22.0, Monocytes (%) (Auto) 12.9, Eosinophils (%) (Auto) 0.0, Basophils (%) (Auto) 0.3, Neutrophils # (Auto ) 4.45, Lymphocytes # (Auto) 1.52, Monocytes # (Auto) 0.89, Eosinophils # (Auto ) 0.00, Basophils # (Auto) 0.02 02/26/18 00:10 Test 02/25/18 00:10 02/25/18 23:28 02/26/18 00:10 02/26/18 00:15 White Blood Count 6.92 K/uL (4.8-10.8) Red Blood Count 3.97 M/uL (4.2-5.4) Hemoglobin 11.2 g/dL (12.0-16.0) Hematocrit 36.6 % (37-47) Mean Corpuscular Volume 92.2 fL (80-100) Mean Corpuscular Hemoglobin 28.2 pg (25-34) Mean Corpuscular Hemoglobin Concent 30.6 g/dl (32-36) Platelet Count 244 K/uL (130-400) Mean Platelet Volume 9.3 fL (7.4-10.4) Neutrophils (%) (Auto) 64.2 % Lymphocytes (%) (Auto) 22.0 % Monocytes (%) (Auto) 12.9 % Eosinophils (%) (Auto) 0.0 % Basophils (%) (Auto) 0.3 % Neutrophils # (Auto) 4.45 K/uL (1.4-6.5) Lymphocytes # (Auto) 1.52 K/uL (1.2-3.4) Monocytes # (Auto) 0.89 K/uL (0.11-0.59) Eosinophils # (Auto) 0.00 K/uL (0-0.5) Basophils # (Auto) 0.02 K/uL (0-0.2) RDW Standard Deviation 50.2 fL (36.4-46.3) RDW Coefficient of Variation 14.8 % (11.5-14.5) Immature Granulocyte % (Auto) 0.6 % Immature Granulocyte # (Auto) 0.04 K/uL (0.00-0.02) Influenza Type A Antigen Neg for Influ A (NEG) Influenza Type B Antigen Neg for Influ B (NEG) Prothrombin Time 9.7 SECONDS (9.0-12.0) Prothromb Time International Ratio 0.9 (0.9-1.1) Activated Partial Thromboplast Time 22.4 SECONDS (21.0-31.0) Partial Thromboplastin Ratio 0.9 Anion Gap 6.0 mmol/L (3-11) Est Creatinine Clear Calc Drug Dose 11.7 ml/min Estimated GFR () 22.3 Estimated GFR (Non- 19.3 BUN/Creatinine Ratio 19.9 (10-20) Calcium Level 9.3 mg/dl (8.5-10.1) Total Bilirubin 0.7 mg/dl (0.2-1) Aspartate Amino Transf (AST/SGOT) U/L (15-37) Alanine Aminotransferase (ALT/SGPT) 15 U/L (12-78) Alkaline Phosphatase 54 U/L (45-117) Total Protein 6.7 gm/dl (6.4-8.2) Albumin 3.2 gm/dl (3.4-5.0) Globulin 3.5 gm/dl (2.5-4.0) Albumin/Globulin Ratio 0.9 (0.9-2) Bedside Lactic Acid Venous 1.58 mmol/L (0.90-1.70) Test 02/26/18 01:00 Urine Color YELLOW Urine Appearance CLEAR (CLEAR) Urine pH 7.0 (4.5-7.5) Urine Specific [place] 1.015 (1.000-1.030) Urine Protein NEG (NEG) Urine Glucose (UA) NEG (NEG) Urine Ketones NEG (NEG) Urine Occult Blood NEG (NEG) Urine Nitrite NEG (NEG) Urine Bilirubin NEG (NEG) Urine Urobilinogen NEG (NEG) Urine Leukocyte Esterase MODERATE (NEG) Urine WBC (Auto) 10-30 /hpf (0-5) Urine RBC (Auto) 0-4 /hpf (0-4) Urine Hyaline Casts (Auto) 1-5 /lpf (0-5) Urine Epithelial Cells (Auto) >30 /lpf (0-5) Urine Bacteria (Auto) NEG (NEG) Laboratory results per my review. Medications Administered Medications (Trade) Dose Ordered Sig/Zack Route Start Time Stop Time Status Last Admin Dose Admin Sodium Chloride 500 ml @ 999 mls/hr Q31M STAT IV 02/26/18 01:35 02/26/18 02:05 DC 02/26/18 01:35 999 MLS/HR Azithromycin (Zithromax Tab) 500 mg NOW STAT PO 02/26/18 01:40 02/26/18 01:41 DC 02/26/18 02:24 500 MG Procedure 0135: Ordered Sodium Chloride 500 ml @ 999 mls/hr IV. 0140: Ordered Zithromax 500 mg PO ECG Per My Interpretation Indication: other (fever) Rate (beats per minute): 84 Rhythm: normal sinus Findings: nonspecific-ST abn, no acute ischemic change, no ectopy Change: no significant change (when compared to 12/11/2016) ED Course 2304: Past medical records reviewed. The patient was evaluated in room B7. A complete history and physical exam was performed. A septic protocol was performed. A 12-lead EKG was obtained. The patient was observed on the hip hop dancer and pulse oximeter. She had a chest x-ray as described above. 0130: I reassessed the patient at this time. She feels better and wants to go home. I discussed the results and treatment plan with the patient. I answered all pertaining questions that she had. She expressed understanding and verbalized agreement. The patient will be discharged home. The wound on the left thigh was redressed. 0135: Ordered Sodium Chloride 500 ml @ 999 mls/hr IV. 0140: Ordered Zithromax 500 mg PO Medical Decision The patient is an 88 year old female who presents to the ED with fever. Differential diagnosis includes sepsis, PNA, UTI, C. difficile, MRSA, cat scratch fever, wound infection, and influenza. Lab results showed: Negative Influenza. UA: Moderate Leukocyte Esterase, WBC 10- 30, and Epithelial Cells >30. BUN 44. Creat 2.2. Normal LFTs. Normal Glucose. Normal Lactic acid. Hemoglobin 11.2, which is her baseline. No leukocytosis. The patient was afebrile upon arrival here in the emergency department. She has no significant leukocytosis. The patient does have a wound on the left upper thigh from a cat scratch. There is moderate surrounding erythema and some discharge that could be concerning for infection. I could not identify any other source for her fever. The patient has significant drug allergies specifically to antibiotics. I will start the patient on a 5 day course of Zithromax. However, I have asked her to follow-up with her PCP within next 48 hours for recheck if the fever persists. The patient does have a history of MRSA in some wounds on her lower extremities. She also has a history of C. difficile but is not currently having diarrhea. The family was told return to the emergency department immediately if the patient developed any worsening symptoms such as increased pain, persistent fever, vomiting, or weakness. I explained to the family that the patient's labs reveal some acute kidney injury with dehydration. She received an IV fluid bolus here in the emergency department and will be discharged with instructions to increase her fluid intake. Medication Reconcilliation Current Medication List: was personally reviewed by me Blood Pressure Screening Patient's blood pressure: Normal blood pressure Impression Primary Impression: Cat scratch Additional Impression: Dehydration Scribe Attestation The scribe's documentation has been prepared under my direction and personally reviewed by me in its entirety. I confirm that the note above accurately reflects all work, treatment, procedures, and medical decision making performed by me. Departure Information Dispostion Home / Self-Care Prescriptions Azithromycin (ZITHROMAX) 250 Mg Tab 250 MG PO DAILY, #4 TAB Prov: Diana Shafer D.O. 02/26/18 Referrals Mil Durand M.D. (PCP) Forms HOME CARE DOCUMENTATION FORM, IMPORTANT VISIT INFORMATION Patient Instructions Cat Scratch Disease, Dehydration, [facility], Wound Care Additional Instructions Rest. Keep yourself well-hydrated. Zithromax - daily. Follow up on Monday for a recheck with the PCP if feve continues. Keep cat scratch clean with soap and water. Return to the ER for any worsening fever, weakness, or vomiting Problem Qualifiers
[2018-02-25] MEDS ORDERED: DOXE10CA PO (23:37)
[2018-02-25] MEDS ORDERED: POTA-74 PO (23:37)
[2018-02-25] MEDS ORDERED: LEVO50TA6 PO (23:37)
[2018-02-25] MEDS ORDERED: DMD20 PO (23:37)
[2018-02-25] MEDS ORDERED: CARV6.252 PO (23:37)
[2018-02-25] MEDS ORDERED: POLYSOL4 OP (23:39)
[2018-02-25] MEDS ORDERED: COCO1OIL2 TOP (23:40)
[2018-02-25 23:58] LABS: INFLUENZA B ANTIGEN Neg for Influ B (NEG)
[2018-02-26 00:27] LABS: BASO % 0.3 %; BASO ABS # 0.02 K/uL (0-0.2); HEMATOCRIT 36.6 % (37-47); HEMOGLOBIN 11.2 g/dL (12.0-16.0); IG# 0.04 K/uL (0.00-0.02); LYMPH ABS # 1.52 K/uL (1.2-3.4); MEAN CELL VOLUME 92.2 fL (80-100); MEAN CORPUSCULAR HEMOGLOBIN 28.2 pg (25-34); MEAN CORPUSCULAR HGB CONC 30.6 g/dl (32-36); MEAN PLATELET VOLUME 9.3 fL (7.4-10.4); MONO % 12.9 %; MONO ABS # 0.89 K/uL (0.11-0.59); NEUT % 64.2 %; NEUT ABS # 4.45 K/uL (1.4-6.5); PLATELET COUNT 244 K/uL (130-400); RED CELL DISTRIBUTION WIDTH CV 14.8 % (11.5-14.5); RED CELL DISTRIBUTION WIDTH SD 50.2 fL (36.4-46.3); WHITE BLOOD COUNT 6.92 K/uL (4.8-10.8)
[2018-02-26 00:36] LABS: INR 0.9 (0.9-1.1); PTT PATIENT 22.4 SECONDS (21.0-31.0)
[2018-02-26 00:59] LABS: ALBUMIN 3.2 gm/dl (3.4-5.0); CALCIUM 9.3 mg/dl (8.5-10.1); CREATININE 2.21 mg/dl (0.60-1.20); TOTAL PROTEIN 6.7 gm/dl (6.4-8.2)
[2018-02-26] MEDS ORDERED: SODIUM CHLORIDE 0.9% 500ML 500 ML IV STA (01:35)
[2018-02-26] MEDS ORDERED: AZITHROMYCIN 250 MG TAB PO STA (01:40)
[2018-02-26] MEDS ORDERED: AZIT250T PO (02:22)
[2018-02-26 03:07] VITALS: BP 134/68; PULSE 74; O2SAT 96
--- NOTE | 2018-02-26 06:44 | DIAGNOSTIC IMAGING REPORT ---
CHEST ONE VIEW PORTABLE CLINICAL HISTORY: Sepsis COMPARISON STUDY: Chest radiograph December 11, 2016. FINDINGS: Incidental made is made of an old, healed diaphyseal fracture of the right humerus. There is no pneumothorax or pleural effusion. Pulmonary vascularity is normal. No consolidation is identified. Cardiomediastinal silhouette is stable. IMPRESSION: No acute cardiopulmonary findings. Electronically signed by: Frank Velez M.D. 02/26/2018 6:42 AM Dictated Date/Time: 02/26/2018 6:41 AM
== END 2018-02-26 03:11 | disposition home or self-care (01) ==
LOC: C.EDB 22:28
DX: R50.9 Fever, unspecified (principal); S71.112A Laceration without foreign body, left thigh, initial encounter; W55.03XA Scratched by cat, initial encounter; N17.9 Acute kidney failure, unspecified; E86.0 Dehydration; Z86.14 Personal history of Methicillin resistant Staphylococcus aureus infection; I10 Essential (primary) hypertension; Z79.82 Long term (current) use of aspirin; Z88.6 Allergy status to analgesic agent; Z88.0 Allergy status to penicillin; Z91.018 Allergy to other foods; Z88.1 Allergy status to other antibiotic agents; Z88.3 Allergy status to other anti-infective agents

== ENCOUNTER 2018-05-27 07:18 | Inpatient (IN) | payer OTHER, MEDICARE ==
[2018-05-27] VITALS (7 sets, daily range): BP systolic 101–129; BP diastolic 42–72; PULSE 93–114; TEMP 36.8–37.3; O2SAT 94–99; Ht 154.9 cm; Wt 63.1 kg
[~2018-05-27] VITALS: Ht 154.9 cm; Wt 63.1 kg
[~2018-05-27 07:18] MED LIST changes: +ASPI81TA28 PO; +COCO1OIL2 TOP; -CRG625 PO; +DOXE10CA PO; -IPRA1AER2 INH; -LCHC12280 TOP; -LEVO50TA PO; +LEVO50TA6 PO; +MULTTAB5 PO; +POLYSOL4 OP; +POTA1CAP53 PO; +PRED-301 PO; +PROM25TA9 PO; +TORS20TA3 PO; +VNTHFA/IN INH
[2018-05-27] MEDS ORDERED: VANCOMYCIN IV 1,000 MG in SODIUM CHLORIDE 0.9% 250ML 250 ML IV STA (07:40)
[2018-05-27] MEDS ORDERED: VANCOMYCIN 1GM ED/ASU OMNICELL 270 ML IV STA (07:40)
[2018-05-27] MEDS ORDERED: VANCOMYCIN CONSULT ACTIVE PRN (07:45)
[2018-05-27 08:08] LABS: BASO % 0.1 %; BASO ABS # 0.01 K/uL (0-0.2); HEMATOCRIT 37.9 % (37-47); HEMOGLOBIN 11.7 g/dL (12.0-16.0); IG# 0.06 K/uL (0.00-0.02); LYMPH % 7.7 %; LYMPH ABS # 0.86 K/uL (1.2-3.4); MEAN CORPUSCULAR HEMOGLOBIN 28.4 pg (25-34); MEAN CORPUSCULAR HGB CONC 30.9 g/dl (32-36); MEAN PLATELET VOLUME 9.4 fL (7.4-10.4); MONO % 4.7 %; MONO ABS # 0.52 K/uL (0.11-0.59); NEUT ABS # 9.66 K/uL (1.4-6.5); PLATELET COUNT 240 K/uL (130-400); RED CELL DISTRIBUTION WIDTH CV 16.6 % (11.5-14.5); RED CELL DISTRIBUTION WIDTH SD 56.1 fL (36.4-46.3); WHITE BLOOD COUNT 11.11 K/uL (4.8-10.8)
[2018-05-27] MEDS ORDERED: ACETAMINOPHEN 500 MG TAB PO STA (08:27)
[2018-05-27 08:31] LABS: CALCIUM 8.7 mg/dl (8.5-10.1); CREATININE 2.13 mg/dl (0.60-1.20); POTASSIUM 3.3 mmol/L (3.5-5.1); TOTAL PROTEIN 6.6 gm/dl (6.4-8.2)
--- NOTE | 2018-05-27 08:41 | DIAGNOSTIC IMAGING REPORT ---
CHEST ONE VIEW PORTABLE HISTORY: 88 years-old Female fever acute fever COMPARISON: Chest radiograph 05/12/2018 TECHNIQUE: Portable AP view of the chest FINDINGS: Study is limited secondary to patient rotation. Cardiac silhouette is mildly enlarged. Unchanged prominence of the mediastinum. There is no pneumothorax or pleural effusion. Subsegmental left basilar opacities redemonstrated suggesting atelectasis/scarring. Lungs are mildly hyperinflated. Degenerative changes are noted within the shoulders and spine with mild sigmoidal scoliosis. IMPRESSION: 1. No acute process. 2. Hyperinflation with unchanged subsegmental left basilar atelectasis/scarring. The above report was generated using voice recognition software. It may contain grammatical, syntax or spelling errors. Electronically signed by: Marc Hernandes M.D. 05/27/2018 8:40 AM Dictated Date/Time: 05/27/2018 8:38 AM
[2018-05-27] MEDS ORDERED: SODIUM CHLORIDE 0.9% 1000ML 1,000 ML IV STA (08:56)
[2018-05-27] MEDS ORDERED: CEFEPIME IV 1,000 MG in DEXTROSE 5% 100ML 100 ML IV SCH (09:00)
--- NOTE | 2018-05-27 09:57 | History and Physical ---
History & Physical Date & Time of Service: May 27, 2018 at 09:50 Chief Complaint: gen. illness/fever Primary Care Physician: Mil Durand M.D. History of Present Illness Source: patient, family (two daughters at bedside), clinic records, hospital records This is an 88 y/o female with a history of CAD, [place], HTN, Mobitz II AVB, anxiety , benign essential tremor, hypothyroidism, CKD stage IV, peripheral edema and GERD who presented to the ED on 05/27 with altered mental status and fever. The patient had been in her normal state of health yesterday, but this morning her daughters found her altered and less responsive than usual. They called EMS for further evaluation. The patient is now alert and oriented after receiving IVF and abx in the ED. She states she checks her vitals regularly at home and had not seen anything unusual and no fevers prior to today. She currently reports feeling feverish and sweaty. She denies any chest pain or shortness of breath. She does not wear supplemental oxygen at home. She denies nausea, vomiting, and abdominal pain. She does have poor appetite, but this is ongoing for the last 5 years. She denies any urinary symptoms but she is incontinent at baseline. Of note, the patient presented to [facility] earlier this month following a mechanical fall and was found to have Mobitz II AVB at that time. She is currently on a cardiac event monitor. The patient denies chills, chest pain, palpitations, claudication, cough, wheezing, shortness of breath, nausea, vomiting, abdominal pain, dysuria, hematuria, urinary retention, paralysis, weakness, numbness and tingling. Past Medical/Surgical History Medical Problems: (1) abdominal pain (2) Acute electrocardiogram changes (3) Acute kidney injury superimposed on chronic kidney disease (4) ARF (acute renal failure) (5) Asthma (6) Asthma exacerbation (7) Bronchitis (8) C. difficile colitis (9) C. difficile diarrhea (10) Cat bite (11) Cat bite (12) Cat scratch (13) Cat scratch of forearm (14) Cat scratch of forearm (15) Cellulitis (16) Cellulitis of right leg (17) Chronic kidney disease (18) COPD exacerbation (19) Dehydration (20) Dehydration (21) Dehydration, mild (22) Diarrhea (23) Distal radius fracture, left (24) Dizziness (25) Dyspnea (26) Elevated troponin (27) Elevated troponin (28) Encounter for wound re-check (29) Epigastric abdominal pain (30) Equivalent angina (31) Failure to thrive (32) Fall (33) Fluid overload (34) Forehead contusion (35) Fracture of left distal radius (36) General weakness (37) Head injury, closed (38) Hyperkalemia, diminished renal excretion (39) Hyperphosphatemia (40) Hypertension (41) Hypertension (42) Ileus (43) Left arm swelling (44) Left leg cellulitis (45) Left leg cellulitis (46) Left radial head fracture (47) Left radial head fracture (48) Lower extremity edema (49) Mobitz type 2 second degree atrioventricular block (50) Nausea and vomiting (51) Noninfected skin tear of left leg (52) Renal insufficiency (53) Shortness of breath (54) Stable angina (55) Swelling of left extremity (56) Traumatic ecchymosis of left lower leg (57) Vomiting (58) Weakness (59) Wheezing Surgical Problems: (1) H/O: hysterectomy (2) S/P appendectomy (3) S/P cholecystectomy CAD H/o WV--medically managed HTN Mobitz II AVB Anxiety Benign essential tremor Hypothyroidism CKD stage IV Peripheral edema GERD Family History FH: heart disease Hypertension Kidney disease Kidney stones Myocardial infarction Prostate cancer Social History Smoking Status: Never Smoker Smokeless Tobacco Use: No Drug Use: none Marital Status: Housing status: lives with family Occupational Status: retired Immunizations History of Influenza Vaccine: No History of Tetanus Vaccine?: Yes Tetanus Immunization Date: Apr 06, 2006 History of Pneumococcal: No History of Hepatitis B Vaccine: Unknown Allergies Coded Allergies: Codeine (Verified Allergy, Mild, 05/27/18) Penicillins (Verified Allergy, Mild, ., 05/27/18) tolerated cefepime Banana (Verified Allergy, Unknown, GI symptoms, 05/27/18) Erythromycin (Verified Allergy, Unknown, ., 05/27/18) Sulfa Antibiotics (Verified Allergy, Unknown, Unknown, 05/27/18) Cantaloupe (Verified Adverse Reaction, Unknown, GI SYMPTOMS FROM UNSPECIFIED MELONS, 05/27/18) Home Medications Scheduled Aspirin (Aspirin Ec), 81 MG PO QAM Cholecalciferol (Vitamin D 1000 Unit), 1,000 INTER.UNIT PO QPM Coconut Oil (Bulk) (Coconut Oil), 1 APPLN TOP UD Doxepin Hcl (Sinequan), 10 MG PO AMHS Levothyroxine Sodium (Levothyroxine Sodium), 50 MCG PO QAM Morphine Sulfate (Morphine Sulfate Ir), 2 TABS PO BID Multiple Vitamins W/ Minerals (Centrum), 1 TAB PO QPM Potassium Chloride (Klor-Con Sprinkle), 10 MEQ PO DAILY Prednisone (Prednisone), 5 MG PO QAM Probiotic Product (Align), 4 MG PO DAILY Torsemide (Torsemide), 20 MG PO BID Scheduled PRN Albuterol Hfa (Ventolin Hfa), 2-4 PUFFS INH Q6H PRN for Shortness of Breath Polyethylene Glycol-Propylene (Systane), 1 DROP OP QID PRN for Eye Irritation Promethazine Hcl (Phenergan), 25 MG PO Q6H PRN for Nausea Review of Systems Constitutional: +Fever, sweats. No chills Eyes: No worsening of vision, No eye pain, No diplopia ENT: No hearing loss, No nasal symptoms, No trouble swallowing Respiratory: No cough, No wheezing, No shortness of breath Cardiovascular: No chest pain, No claudication, No palpitations Abdomen: No pain, No nausea, No vomiting Musculoskeletal: +Chronic pain. No muscle pain, No swelling Genitourinary - Female: +Urinary incontinence at baseline. No dysuria, No urinary retention, No hematuria Neurologic: No paralysis, No weakness, No numbness/tingling Integumentary: No rash, No itch, No color change Physical Exam Vital Signs Date Time Temp Pulse Resp B/P (MAP) Pulse Ox O2 Delivery O2 Flow Rate FiO2 05/27/18 08:03 94 Nasal Cannula 2.0 05/27/18 07:36 124 05/27/18 07:28 39.3 125 18 124/93 89 Room Air General appearance: Well-developed, well-nourished, no apparent distress Head: +Healing ecchymosis right side of face, fell a few weeks ago. Normocephalic Eyes: Normal inspection, PERRL, EOMI ENT: Normal ENT inspection, hearing grossly normal, pharynx normal Neck: Supple, no JVD, trachea midline Respiratory/Chest: +On 2L NC. Lungs clear to auscultation, normal breath sounds, no respiratory distress Cardiovascular: Regular rate & rhythm, no gallop, no murmur Abdomen/GI: +Umbilical hernia. Normal bowel sounds, non-tender, soft Extremities/Musculoskeletal: +1-2+ pitting edema. Chronic venous stasis changes. Lower legs TTP. No calf tenderness Neurological/Psych: Alert, normal mood/affect, oriented x 3 Skin: +Healing ecchymosis over right face and arms, recent fall. Normal color , warm/dry, no rash Diagnostics Laboratory Results Results Past 24 Hours Test 05/27/18 07:45 05/27/18 07:53 05/27/18 07:57 05/27/18 08:19 Range/Units Urine Color YELLOW Urine Appearance CLOUDY CLEAR Urine pH 6.5 4.5-7.5 Urine Specific [place] 1.011 1.000-1.030 Urine Protein TRACE NEG Urine Glucose (UA) NEG NEG Urine Ketones NEG NEG Urine Occult Blood 3+ NEG Urine Nitrite POS NEG Urine Bilirubin NEG NEG Urine Urobilinogen NEG NEG Urine Leukocyte Esterase LARGE NEG Urine WBC (Auto) >30 0-5 /hpf Urine RBC (Auto) 0-4 0-4 /hpf Urine Hyaline Casts (Auto) 0 0-5 /lpf Urine Epithelial Cells (Auto) 0-5 0-5 /lpf Urine Bacteria (Auto) 1+ NEG White Blood Count 11.11 4.8-10.8 K/uL Red Blood Count 4.12 4.2-5.4 M/uL Hemoglobin 11.7 12.0-16.0 g/dL Hematocrit 37.9 37-47 % Mean Corpuscular Volume 92.0 80-100 fL Mean Corpuscular Hemoglobin 28.4 25-34 pg Mean Corpuscular Hemoglobin Concent 30.9 32-36 g/dl Platelet Count 240 130-400 K/uL Mean Platelet Volume 9.4 7.4-10.4 fL Neutrophils (%) (Auto) 87.0 % Lymphocytes (%) (Auto) 7.7 % Monocytes (%) (Auto) 4.7 % Eosinophils (%) (Auto) 0.0 % Basophils (%) (Auto) 0.1 % Neutrophils # (Auto) 9.66 1.4-6.5 K/uL Lymphocytes # (Auto) 0.86 1.2-3.4 K/uL Monocytes # (Auto) 0.52 0.11-0.59 K/uL Eosinophils # (Auto) 0.00 0-0.5 K/uL Basophils # (Auto) 0.01 0-0.2 K/uL RDW Standard Deviation 56.1 36.4-46.3 fL RDW Coefficient of Variation 16.6 11.5-14.5 % Immature Granulocyte % (Auto) 0.5 % Immature Granulocyte # (Auto) 0.06 0.00-0.02 K/uL Sodium Level 140 136-145 mmol/L Potassium Level 3.3 3.5-5.1 mmol/L Chloride Level 101 98-107 mmol/L Carbon Dioxide Level 30 21-32 mmol/L Anion Gap 9.0 3-11 mmol/L Blood Urea Nitrogen 25 7-18 mg/dl Creatinine 2.13 0.60-1.20 mg/dl Est Creatinine Clear Calc Drug Dose 13.8 ml/min Estimated GFR () 23.4 Estimated GFR (Non- 20.1 BUN/Creatinine Ratio 11.8 10-20 Random Glucose 105 70-99 mg/dl Calcium Level 8.7 8.5-10.1 mg/dl Total Bilirubin 0.7 0.2-1 mg/dl Aspartate Amino Transf (AST/SGOT) 22 15-37 U/L Alanine Aminotransferase (ALT/SGPT) 18 12-78 U/L Alkaline Phosphatase 48 45-117 U/L Pro-B-Type Natriuretic Peptide 1086 0-1800 pg/ml Total Protein 6.6 6.4-8.2 gm/dl Albumin 3.0 3.4-5.0 gm/dl Globulin 3.6 2.5-4.0 gm/dl Albumin/Globulin Ratio 0.8 0.9-2 Bedside Lactic Acid Venous 2.37 0.90-1.70 mmol/L Venous Blood pH 7.43 7.36-7.41 Venous Blood Partial Pressure CO2 51 38.0-50.0 mmHg Venous Blood Partial Pressure O2 26 mmHg Venous Blood HCO3 33 mmol/L Venous Blood Oxygen Saturation < 60.0 % Venous Blood Base Excess 7.5 mEq/L Microbiology Results 05/27/18 Blood Culture, Received Pending 05/27/18 Blood Culture, Received Pending 05/27/18 Urine Culture, Received Pending Diagnostic Radiology Reviewed the following studies and agree with interpretation as follows: CHEST ONE VIEW PORTABLE HISTORY: 88 years-old Female fever acute fever COMPARISON: Chest radiograph 05/12/2018 TECHNIQUE: Portable AP view of the chest FINDINGS: Study is limited secondary to patient rotation. Cardiac silhouette is mildly enlarged. Unchanged prominence of the mediastinum. There is no pneumothorax or pleural effusion. Subsegmental left basilar opacities redemonstrated suggesting atelectasis/scarring. Lungs are mildly hyperinflated. Degenerative changes are noted within the shoulders and spine with mild sigmoidal scoliosis. IMPRESSION: 1. No acute process. 2. Hyperinflation with unchanged subsegmental left basilar atelectasis/scarring. ABDOMEN AND PELVIS CT WITHOUT CONTRAST CT DOSE: 286.13 mGy.cm HISTORY: Acute sepsis with generalized abdominal pain sepsis, abd pain TECHNIQUE: Multiaxial CT images of the abdomen and pelvis were performed without contrast. A dose lowering technique was utilized adhering to the principles of ALARA. COMPARISON STUDY: CT abdomen and pelvis 05/12/2018. FINDINGS: Trace right pleural effusion. Subsegmental dependent bibasilar opacities suggest atelectasis. No pneumatosis or pneumoperitoneum. The study is mildly motion degraded. Imaged inferior cardiac chambers are mildly enlarged. Coronary arterial calcifications are noted. Prior cholecystectomy. Calcified granulomata about the liver and spleen. There is no intrahepatic biliary ductal dilation identified. There is a 10 mm cystic focus of the pancreatic body suggesting a small sidebranch IPMN. The unenhanced pancreas is atrophic and otherwise grossly unremarkable. Adrenal glands are unremarkable. Mild atrophy about the bilateral kidneys. No calculi or obstructive uropathy. Alexander catheter is noted within a decompressed urinary bladder lumen. Foci of air noted within the bladder. There is a multilobulated cystic lesion about the left adnexum, 3.6 x 3.1 cm on image 296 series 3. Right adnexum is unremarkable. Mild atherosclerosis of the aorta without aneurysm. No pathologically enlarged lymph nodes identified. Fluid is noted within the distal esophagus. No bowel obstruction or focal bowel wall thickening. Large stool ball is noted within the rectum. Moderate stool volume is seen throughout the majority of the colon. Colonic diverticulosis without diverticulitis. Prior appendectomy. Moderate sized fat filled periumbilical hernia, diastases 2.2 cm. Soft tissues and breast parenchyma appear unremarkable. Degenerative changes of the pelvis, spine and hips. Severe multilevel facet arthropathy. No acute fracture identified. Chronic appearing anterolisthesis L4 on L5 and L5 on S1. IMPRESSION: 1. Constipation without bowel obstruction or focal bowel wall thickening. 2. Colonic diverticulosis without diverticulitis. 3. Septated cystic lesion about the left adnexum redemonstrated measuring up to 3.6 cm. 4. Moderate sized fat filled periumbilical hernia. 5. Prior granulomatous disease. 6. Additional findings as above. EKG Reviewed EKG and agree with interpretation as follows: 122 bpm, sinus tachycardia, QTc prolonged at 464 Impression Assessment and Plan 88 y/o female with a history of CAD, [place], HTN, Mobitz II AVB, anxiety, benign essential tremor, hypothyroidism, CKD stage IV, peripheral edema and GERD who presented to the ED on 05/27 with altered mental status and fever. Pt febrile with temp of 39.3C and tachy with HR in 120s on arrival. This improved with IVF. BP stable. Hypoxic with SpO2 89% on room air, placed on 2L NC. Does not wear O2 at home. CXR no acute disease. CT abdomen/pelvis shows some constipation and chronic changes but no other acute disease. EKG no acute ischemic changes. UA positive for blood, nitrites, leuks, and bacteria. WBC 11.11. VBG grossly unremarkable. Potassium 3.3 Creatinine at baseline. POC lactic acid 2.37. Pt received IVF, Tylenol, vancomycin and Cefepime in ED Sepsis secondary to UTI -Admit to telemetry -Repeat lactic acid at 1200 -Urine and blood cultures pending -Blood cultures pending -Rocephin 1 gm IV qd -NSS + 20 mEq KCl at 80 cc/hr as lactic acid less than 4, low normal EF and peripheral edema -Pt takes prednisone 5 mg PO qd chronically. Vitals currently stable, BP normotensive. Will hold off on stress dose steroids for now but can reconsider if decompensating Cyst in left adnexum on CT--stable -Pt has h/o left ovary cyst, per outpt records at least since 2014 CAD, h/o [place], HTN--stable -Continue ASA -Pt 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 She has refused statins Anxiety -Continue doxepin 10 mg PO BID Hypothyroidism -Continue Synthroid 50 mcg PO qd CKD stage IV--stable -Baseline creatinine 1.9-2.2 -Creatinine 2.13 on admission -Pt follows w/Dr. Bojorquez Peripheral edema -Hold torsemide for now DVT prophylaxis -Heparin 5000 units SC q12h Code Status -Level V, DO NOT RESUSCITATE Resuscitation Status VTE Prophylaxis Will order VTE Prophylaxis: Yes
--- NOTE | 2018-05-27 10:16 | DIAGNOSTIC IMAGING REPORT ---
ABDOMEN AND PELVIS CT WITHOUT CONTRAST CT DOSE: 286.13 mGy.cm HISTORY: Acute sepsis with generalized abdominal pain sepsis, abd pain TECHNIQUE: Multiaxial CT images of the abdomen and pelvis were performed without contrast. A dose lowering technique was utilized adhering to the principles of ALARA. COMPARISON STUDY: CT abdomen and pelvis 05/12/2018. FINDINGS: Trace right pleural effusion. Subsegmental dependent bibasilar opacities suggest atelectasis. No pneumatosis or pneumoperitoneum. The study is mildly motion degraded. Imaged inferior cardiac chambers are mildly enlarged. Coronary arterial calcifications are noted. Prior cholecystectomy. Calcified granulomata about the liver and spleen. There is no intrahepatic biliary ductal dilation identified. There is a 10 mm cystic focus of the pancreatic body suggesting a small sidebranch IPMN. The unenhanced pancreas is atrophic and otherwise grossly unremarkable. Adrenal glands are unremarkable. Mild atrophy about the bilateral kidneys. No calculi or obstructive uropathy. Alexander catheter is noted within a decompressed urinary bladder lumen. Foci of air noted within the bladder. There is a multilobulated cystic lesion about the left adnexum, 3.6 x 3.1 cm on image 296 series 3. Right adnexum is unremarkable. Mild atherosclerosis of the aorta without aneurysm. No pathologically enlarged lymph nodes identified. Fluid is noted within the distal esophagus. No bowel obstruction or focal bowel wall thickening. Large stool ball is noted within the rectum. Moderate stool volume is seen throughout the majority of the colon. Colonic diverticulosis without diverticulitis. Prior appendectomy. Moderate sized fat filled periumbilical hernia, diastases 2.2 cm. Soft tissues and breast parenchyma appear unremarkable. Degenerative changes of the pelvis, spine and hips. Severe multilevel facet arthropathy. No acute fracture identified. Chronic appearing anterolisthesis L4 on L5 and L5 on S1. IMPRESSION: 1. Constipation without bowel obstruction or focal bowel wall thickening. 2. Colonic diverticulosis without diverticulitis. 3. Septated cystic lesion about the left adnexum redemonstrated measuring up to 3.6 cm. 4. Moderate sized fat filled periumbilical hernia. 5. Prior granulomatous disease. 6. Additional findings as above. Electronically signed by: Marc Hernandes M.D. 05/27/2018 10:15 AM Dictated Date/Time: 05/27/2018 10:08 AM
[2018-05-27] MEDS ORDERED: ALUMINUM/MAGNESIUM/SIMETH (MAALOX MAX) 30 ML UDC PO PRN (10:30)
[2018-05-27] MEDS ORDERED: POLYETHYLENE (MIRALAX) 17 GM PACK PO PRN (10:30)
[2018-05-27] MEDS ORDERED: MAGNESIUM HYDROXIDE SUSP 30 ML UDC PO PRN (10:30)
[2018-05-27] MEDS ORDERED: CEFTRIAXONE SOD INJ 1 GM in DEXTROSE 5% ADD-VANTAGE 50ML 50 ML IV SCH (12:00)
[2018-05-27 12:30] LABS: PTT PATIENT 24.9 SECONDS (21.0-31.0)
[2018-05-27] MEDS: NSS + 20MEQ KCL 1000ML 1,000 ML IV SCH (12:42)
--- NOTE | 2018-05-27 17:06 | EMERGENCY ROOM VISIT NOTE ---
ED Visit Note First contact with patient: 07:21 I reviewed the patient's past medical history, medications, and visit nursing notes. I discussed the case with the physician music library assistant, examined the patient, and agree with the findings and plan as documented in the physician assistants note.
--- NOTE | 2018-05-27 17:29 | EMERGENCY ROOM VISIT NOTE ---
History First contact with patient: 07:21 Chief Complaint: FEVER Stated Complaint: SEPSIS, URINARY TRACT INFECTION History of Present Illness The patient is a 88 year old white female who presents to the Emergency Room with complaints of fever, generalized body pain, and abdominal discomfort. She states that this morning her skin hurts. She states she has had generalized pain for years. It is not new. Abdominal discomfort has increased over the last 2 days. Fever was noticed this morning. She states she cannot get comfortable. She lives at home with family. They noted her fever and that she seemed to be confused today. She arrives today by BLS ambulance. She is intermittently moaning and crying and is a poor historian at times. She denies any chest pain or shortness of breath. No nausea or vomiting. No diarrhea. She currently has compression wraps on her lower legs. Feet are visibly edematous. She states this is normal for her. She was recently admitted with a heart block, Mobitz type II. Cardiac event monitor is in place. Review of Systems REVIEW OF SYSTEM: HEENT: No dizziness, visual problems, hearing loss, or tinnitus. There is no difficulty swallowing and no oral lesions are present. LYMPH: No adenopathy. PULMONARY: No cough, shortness of breath, sputum production or hemoptysis. CARDIOVASCULAR: No chest pain, palpitations, shortness of breath or peripheral edema. GASTROINTESTINAL: No diarrhea, constipation, nausea, or vomiting. GENITOURINARY: No dysuria, frequency, urgency or nocturia. NEUROLOGIC: No muscle tenderness, epilepsy or history of neurological problems. MUSCULOSKELETAL: No history of joint tenderness/swelling. Positive history of arthritis and arthralgias. SKIN: No rashes or lesions. PSYCHIATRIC: Positive history of depression or mental illness. ENDOCRINE: No history of diabetes, thyroid disorders, or abnormal hair growth. Past Medical/Surgical History Medical Problems: (1) abdominal pain (2) Acute kidney injury superimposed on chronic kidney disease (3) Asthma (4) Asthma exacerbation (5) C. difficile colitis (6) C. 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 (17) Fall (18) Fracture of left distal radius (19) Hyperkalemia, diminished renal excretion (20) Hyperphosphatemia (21) Hypertension (22) Hypertension (23) Left arm swelling (24) Left leg cellulitis (25) Left leg cellulitis (26) Left radial head fracture (27) Nausea and vomiting (28) Noninfected skin tear of left leg (29) Sepsis (30) Shortness of breath (31) Stable angina (32) Urinary tract infection (33) Wheezing Surgical Problems: (1) H/O: hysterectomy (2) S/P appendectomy (3) S/P cholecystectomy Family History FH: heart disease Hypertension Kidney disease Kidney stones Myocardial infarction Prostate cancer Social History Smoking Status: Former Smoker Smokeless Tobacco Use: No Alcohol Use: none Drug Use: none Marital Status: Housing Status: lives with family Occupation Status: retired Current/Historical Medications Scheduled Aspirin (Aspirin Ec), 81 MG PO QAM Cholecalciferol (Vitamin D 1000 Unit), 1,000 INTER.UNIT PO QPM Coconut Oil (Bulk) (Coconut Oil), 1 APPLN TOP UD Doxepin Hcl (Sinequan), 10 MG PO AMHS Levothyroxine Sodium (Levothyroxine Sodium), 50 MCG PO QAM Morphine Sulfate (Morphine Sulfate Ir), 2 TABS PO BID Multiple Vitamins W/ Minerals (Centrum), 1 TAB PO QPM Potassium Chloride (Klor-Con Sprinkle), 10 MEQ PO DAILY Prednisone (Prednisone), 5 MG PO QAM Probiotic Product (Align), 4 MG PO DAILY Torsemide (Torsemide), 20 MG PO BID Scheduled PRN Albuterol Hfa (Ventolin Hfa), 2-4 PUFFS INH Q6H PRN for Shortness of Breath Polyethylene Glycol-Propylene (Systane), 1 DROP OP QID PRN for Eye Irritation Promethazine Hcl (Phenergan), 25 MG PO Q6H PRN for Nausea Physical Exam Vital Signs Date Time Temp Pulse Resp B/P (MAP) Pulse Ox O2 Delivery O2 Flow Rate FiO2 05/27/18 09:40 94 Nasal Cannula 2.0 05/27/18 08:03 94 Nasal Cannula 2.0 05/27/18 07:36 124 05/27/18 07:28 39.3 125 18 124/93 89 Room Air Physical Exam General: Frail, elderly white female, in no acute distress. Intermittently crying and moaning. Alert and oriented. Skin: Warm and dry with fair turgor. No rashes or lesions. Mild ecchymosis on her face. No erythema. The patient is not diaphoretic. No abrasions. Peripheral edema is noted in the feet. HEENT: Normocephalic atraumatic. Eyes PERRLA, EOMI. No conjunctiva or scleral injection. Ears TMs intact bilaterally with good light reflexes. No erythema or bulging. No hemotympanum. Canals are patent. Nares patent bilaterally without turbinate enlargement. No significant drainage. No epistaxis. Oropharynx without erythema or exudate. Uvula midline, oral mucosa fairly dry. No lesions present. Lymphatics are palpated without anterior or posterior chain enlargement or tenderness. Heart: Heart tachycardic with regular rhythm. No MGR. Peripheral pulses are 2+ . Lungs: Lungs are clear to auscultation. Sounds minorly diminished in the bases. No crackles rhonchi or wheezing. Good air movement. The patient is able to take a deep breath. Abdomen: Abdomen was inspected, auscultated, and palpated. Bowel sounds present x 4. Soft, lower tenderness to palpation. Umbilical hernia. No hepato -splenomegaly. No masses noted. No rebound. Musculoskeletal: Gross motor function of the upper and lower extremities is intact and unremarkable. Shoulder, elbow, wrist, hip, knee, and ankle function is intact Neurologic: Gross sensation is intact across the upper and lower extremities by soft touch. Medical Decision & Procedures ER Provider Diagnostic Interpretation: EKG obtained today shows sinus tachycardia with a rate of 122. Left axis deviation. No change when compared to her EKG from May 14, 2018. No acute ST or T-wave changes. This was reviewed with Dr. Wellington. Portable chest x-ray obtained today was unremarkable. This was read by radiology. Laboratory Results 05/27/18 07:53 Red Blood Count 4.12, Mean Corpuscular Volume 92.0, Mean Corpuscular Hemoglobin 28.4, Mean Corpuscular Hemoglobin Concent 30.9, Mean Platelet Volume 9.4, Neutrophils (%) (Auto) 87.0, Lymphocytes (%) (Auto) 7.7, Monocytes (%) (Auto) 4.7, Eosinophils (%) (Auto) 0.0, Basophils (%) (Auto) 0.1, Neutrophils # (Auto) 9.66, Lymphocytes # (Auto) 0.86, Monocytes # (Auto) 0.52, Eosinophils # (Auto) 0.00, Basophils # (Auto) 0.01 05/27/18 07:53 Test 05/27/18 07:45 05/27/18 07:53 05/27/18 07:57 05/27/18 08:19 Urine Color YELLOW Urine Appearance CLOUDY (CLEAR) Urine pH 6.5 (4.5-7.5) Urine Specific [place] 1.011 (1.000-1.030) Urine Protein TRACE (NEG) Urine Glucose (UA) NEG (NEG) Urine Ketones NEG (NEG) Urine Occult Blood 3+ (NEG) Urine Nitrite POS (NEG) Urine Bilirubin NEG (NEG) Urine Urobilinogen NEG (NEG) Urine Leukocyte Esterase LARGE (NEG) Urine WBC (Auto) >30 /hpf (0-5) Urine RBC (Auto) 0-4 /hpf (0-4) Urine Hyaline Casts (Auto) 0 /lpf (0-5) Urine Epithelial Cells (Auto) 0-5 /lpf (0-5) Urine Bacteria (Auto) 1+ (NEG) White Blood Count 11.11 K/uL (4.8-10.8) Red Blood Count 4.12 M/uL (4.2-5.4) Hemoglobin 11.7 g/dL (12.0-16.0) Hematocrit 37.9 % (37-47) Mean Corpuscular Volume 92.0 fL (80-100) Mean Corpuscular Hemoglobin 28.4 pg (25-34) Mean Corpuscular Hemoglobin Concent 30.9 g/dl (32-36) Platelet Count 240 K/uL (130-400) Mean Platelet Volume 9.4 fL (7.4-10.4) Neutrophils (%) (Auto) 87.0 % Lymphocytes (%) (Auto) 7.7 % Monocytes (%) (Auto) 4.7 % Eosinophils (%) (Auto) 0.0 % Basophils (%) (Auto) 0.1 % Neutrophils # (Auto) 9.66 K/uL (1.4-6.5) Lymphocytes # (Auto) 0.86 K/uL (1.2-3.4) Monocytes # (Auto) 0.52 K/uL (0.11-0.59) Eosinophils # (Auto) 0.00 K/uL (0-0.5) Basophils # (Auto) 0.01 K/uL (0-0.2) RDW Standard Deviation 56.1 fL (36.4-46.3) RDW Coefficient of Variation 16.6 % (11.5-14.5) Immature Granulocyte % (Auto) 0.5 % Immature Granulocyte # (Auto) 0.06 K/uL (0.00-0.02) Anion Gap 9.0 mmol/L (3-11) Est Creatinine Clear Calc Drug Dose 13.8 ml/min Estimated GFR () 23.4 Estimated GFR (Non- 20.1 BUN/Creatinine Ratio 11.8 (10-20) Calcium Level 8.7 mg/dl (8.5-10.1) Total Bilirubin 0.7 mg/dl (0.2-1) Aspartate Amino Transf (AST/SGOT) 22 U/L (15-37) Alanine Aminotransferase (ALT/SGPT) 18 U/L (12-78) Alkaline Phosphatase 48 U/L (45-117) Pro-B-Type Natriuretic Peptide 1086 pg/ml (0-1800) Total Protein 6.6 gm/dl (6.4-8.2) Albumin 3.0 gm/dl (3.4-5.0) Globulin 3.6 gm/dl (2.5-4.0) Albumin/Globulin Ratio 0.8 (0.9-2) Bedside Lactic Acid Venous 2.37 mmol/L (0.90-1.70) Venous Blood pH 7.43 (7.36-7.41) Venous Blood Partial Pressure CO2 51 mmHg (38.0-50.0) Venous Blood Partial Pressure O2 26 mmHg Venous Blood HCO3 33 mmol/L Venous Blood Oxygen Saturation < 60.0 % Venous Blood Base Excess 7.5 mEq/L CBC, chemistry panel, BNP, lactic acid, catheter UA, and venous blood gas were all obtained. Blood cultures were also obtained. CBC shows mild elevation in white cells of 11.11. Renal insufficiency with elevated BUN and creatinine. Normal BNP. Elevated lactic acid at 2.37. UA shows bacteria, nitrates, leukocytes, and blood. Medications Administered Medications (Trade) Dose Ordered Sig/Zack Route Start Time Stop Time Status Last Admin Dose Admin Vancomycin HCl 270 ml @ 125 mls/hr NOW STAT IV 05/27/18 07:40 05/27/18 09:49 DC 05/27/18 08:50 125 MLS/HR Acetaminophen (Tylenol Tab) 1,000 mg NOW STAT PO 05/27/18 08:27 05/27/18 08:29 DC 05/27/18 08:50 1,000 MG Sodium Chloride 1,000 ml @ 100 mls/hr Q10H STAT IV 05/27/18 08:56 05/27/18 11:58 DC 05/27/18 09:32 100 MLS/HR Vancomycin 1 g IV, Tylenol 1 g p.o., 1 L normal sterile saline at 100 mL/h. Cefepime 500 mg IV ED Course Patient was educated regarding today's findings. Conservative care measures were discussed. She was evaluated in B9. IV was established. Labs were obtained. Blood cultures were obtained. EKG was obtained. She is febrile. She was found to be septic. Catheter was placed for UA. IV vancomycin 1 g and IV cefepime 500 mg were administered. She was also gently hydrated using normal sterile saline. I did speak with the hospitalist. Patient will be admitted for further treatment. Please see that dictation for final management. She was seen in conjunction with Dr. Wellington, who also evaluated the patient and concurred with today's diagnosis and treatment plan. Medical Decision Possibility of CVA, sepsis, dehydration, hypokalemia, hyponatremia, urosepsis, pneumonia, hypoglycemia, hyperglycemia, arrhythmia, and acute cardiac event were considered among others. Medication Reconcilliation Current Medication List: was personally reviewed by ma Blood Pressure Screening Patient's blood pressure: Elevated blood pressure Impression Primary Impression: Urinary tract infection Additional Impressions: Sepsis Chronic kidney disease Departure Information Dispostion Still a Patient Condition FAIR Referrals Mil Durand M.D. (PCP) Forms HOME CARE DOCUMENTATION FORM, IMPORTANT VISIT INFORMATION Patient Instructions [facility] Problem Qualifiers Primary Impression: Urinary tract infection Urinary tract infection type: acute cystitis Hematuria presence: with hematuria Qualified Codes: N30.01 - Acute cystitis with hematuria Additional Impressions: Sepsis Sepsis type: sepsis due to unspecified organism Qualified Codes: A41.9 - Sepsis, unspecified organism Chronic kidney disease Chronic kidney disease stage: stage 3 (moderate) Qualified Codes: N18.3 - Chronic kidney disease, stage 3 (moderate)
[2018-05-27] MEDS: CHOLECALCIFEROL 1000 INTER.UNIT TAB PO SCH (21:00)
[2018-05-27] MEDS: CEROVITE ADV FORMULA TAB PO SCH (21:00)
[2018-05-27] MEDS: ONDANSETRON INJ 2 MG/ML 2 ML VIAL IV PRN (21:59)
[2018-05-28] VITALS (7 sets, daily range): BP systolic 104–158; BP diastolic 51–84; PULSE 89–116; TEMP 36.9–38.6; O2SAT 92–98
[2018-05-28] MEDS: DOXEPIN HCL 10 MG CAP PO SCH ×3 (00:13→21:44)
[2018-05-28] MEDS: MoRPHine SULFATE IR 15 MG TAB (IMMEDIATE RELEASE) PO SCH ×3 (00:13→21:45)
[2018-05-28] MEDS: HEPARIN SOD 5000 UNIT/0.5 ML CARP SQ SCH ×3 (00:15→21:48)
[2018-05-28] MEDS: NSS + 20MEQ KCL 1000ML 1,000 ML IV SCH (00:22)
[2018-05-28] MEDS: ONDANSETRON INJ 2 MG/ML 2 ML VIAL IV PRN (04:11)
[2018-05-28] MEDS: ACETAMINOPHEN 325 MG TAB PO PRN (04:11)
[2018-05-28] MEDS: LEVOTHYROXINE 50 MCG TAB PO SCH (05:18)
[2018-05-28] MEDS ORDERED: NURSING VERBAL MED ORDER ONE (06:30)
[2018-05-28 06:32] LABS: HEMATOCRIT 37.8 % (37-47); HEMOGLOBIN 11.4 g/dL (12.0-16.0); MEAN CELL VOLUME 93.6 fL (80-100); MEAN CORPUSCULAR HEMOGLOBIN 28.2 pg (25-34); MEAN CORPUSCULAR HGB CONC 30.2 g/dl (32-36); MEAN PLATELET VOLUME 9.3 fL (7.4-10.4); PLATELET COUNT 206 K/uL (130-400); RED CELL DISTRIBUTION WIDTH SD 58.6 fL (36.4-46.3); WHITE BLOOD COUNT 8.94 K/uL (4.8-10.8)
[2018-05-28] MEDS ORDERED: SODIUM CHLORIDE 0.9% 250ML 250 ML IV ONE (06:45)
[2018-05-28 07:06] LABS: CALCIUM 8.1 mg/dl (8.5-10.1); CREATININE 2.37 mg/dl (0.60-1.20); POTASSIUM 5.5 mmol/L (3.5-5.1)
[2018-05-28] MEDS ORDERED: METOCLOPRAMIDE HCL INJ 5 MG/ML 2 ML VIAL IV. PRN (08:15)
[2018-05-28] MEDS: CHOLECALCIFEROL 1000 INTER.UNIT TAB PO SCH ×2 (08:27→21:44)
[2018-05-28] MEDS: ASPIRIN 81 MG ECTAB PO SCH (08:27)
[2018-05-28] MEDS: POTASSIUM CHLORIDE 10 MEQ TABCR PO SCH (08:28)
[2018-05-28] MEDS: CEROVITE ADV FORMULA TAB PO SCH ×2 (08:28→21:45)
[2018-05-28] MEDS: SACCHAROMYCES BOUL (FLORASTOR) 250 MG CAP PO SCH (08:30)
[2018-05-28] MEDS ORDERED: SODIUM POLYST. SULF SUSP 15G/60ML PO STA ×2 (08:31→17:21)
[2018-05-28] MEDS ORDERED: VANCOMYCIN CONSULT ACTIVE PRN (08:45)
[2018-05-28] MEDS ORDERED: CEFEPIME IV 2,000 MG in DEXTROSE 5% 100ML 100 ML IV SCH (09:00)
[2018-05-28] MEDS ORDERED: VANCOMYCIN IV 1,000 MG in SODIUM CHLORIDE 0.9% 250ML 250 ML IV SCH (09:00)
[2018-05-28] MEDS: SODIUM CHLORIDE 0.9% 1000ML 1,000 ML IV SCH ×2 (09:42→21:45)
[2018-05-28] MEDS ORDERED: CEFEPIME IV 1,000 MG in SYRINGE 0 ML IV SCH (11:00)
--- NOTE | 2018-05-28 13:17 | Hospitalist Progress Note ---
Hospitalist Progress Note Date of Service May 28, 2018. (Tamanna Aguirre, LION) Subjective Pt evaluation today including: conversation w/ patient, physical exam, chart review, lab review, review of inpatient medication list Voiding: no voiding problems Ms. 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 She is having some foot and ankle pain bilaterally which is new for her but she does generally have quite a bit of generalized arthritis pain. ROS Constitutional: no chills, aches, sweats or fever Respiratory: no sob,cough, sputum, or wheezing Cardiac: no chest pain, palpitations, edema, orthopnea or lightheadedness GI: no abdominal pain, nausea, vomiting, diarrhea or constipation : no dysuria or hesitancy Extremities: see HPI Skin: no rash All other systems reviewed and negative (Tamanna Aguirre CRNP) Medications Medications Administered Medications (Trade) Dose Ordered Sig/Zack Route Start Time Stop Time Status Last Admin Dose Admin Vancomycin HCl 270 ml @ 125 mls/hr NOW STAT IV 05/27/18 07:40 05/27/18 09:49 DC 05/27/18 08:50 125 MLS/HR Acetaminophen (Tylenol Tab) 1,000 mg NOW STAT PO 05/27/18 08:27 05/27/18 08:29 DC 05/27/18 08:50 1,000 MG Sodium Chloride 1,000 ml @ 100 mls/hr Q10H STAT IV 05/27/18 08:56 05/27/18 11:58 DC 05/27/18 09:32 100 MLS/HR Heparin Sodium (Porcine) (Heparin Sq 5000 Unit/0.5ml) 5,000 unit Q12 SQ 05/27/18 21:00 06/26/18 20:59 05/28/18 08:33 5,000 UNIT Potassium Chloride/Sodium Chloride 1,000 ml @ 80 mls/hr [id number] IV 05/27/18 12:15 05/28/18 08:17 DC 05/28/18 00:22 80 MLS/HR Acetaminophen (Tylenol Tab) 650 mg Q4H PRN PO 05/27/18 10:30 06/26/18 10:29 05/28/18 04:11 650 MG Ceftriaxone Sodium 1 gm/ Dextrose 50 ml @ 100 mls/hr Q24H IV 05/27/18 12:00 05/28/18 08:39 DC 05/27/18 12:42 100 MLS/HR Aspirin (Ecotrin Tab) 81 mg QAM PO 05/28/18 09:00 06/27/18 08:59 05/28/18 08:27 81 MG Doxepin HCl (Sinequan Cap) 10 mg AMHS PO 05/27/18 21:00 06/26/18 20:59 05/28/18 08:28 10 MG Levothyroxine Sodium (Synthroid Tab) 50 mcg DAILYBB PO 05/28/18 06:00 06/27/18 05:59 05/28/18 05:18 50 MCG Morphine Sulfate (MoRPHine SULFATE IR TAB) 30 mg BID PO 05/27/18 21:00 06/10/18 20:59 05/28/18 08:27 30 MG Potassium Chloride (Klor-Con M10) 10 meq QAM PO 05/28/18 09:00 06/27/18 08:59 05/28/18 08:28 10 MEQ Saccharomyces Boulardii (Florastor Cap) 250 mg DAILY PO 05/28/18 09:00 06/27/18 08:59 05/28/18 08:30 250 MG Prednisone (PredniSONE TAB) 5 mg QAM PO 05/28/18 09:00 06/27/18 08:59 05/28/18 08:29 5 MG Ondansetron HCl (Zofran Inj) 4 mg Q4H PRN IV 05/27/18 20:00 05/28/18 08:15 DC 05/28/18 04:11 4 MG Sodium Chloride 250 ml @ 999 mls/hr TODAY@0645 ONCE IV 05/28/18 06:45 05/28/18 07:00 DC 05/28/18 07:14 999 MLS/HR Sodium Chloride 1,000 ml @ 100 mls/hr Q10H IV 05/28/18 08:15 06/27/18 08:14 05/28/18 09:42 100 MLS/HR Sodium Polystyrene Sulfonate (Kayexalate Susp) 15 gm NOW STAT PO 05/28/18 08:31 05/28/18 08:32 DC 05/28/18 10:22 15 GM Cefepime HCl 1000 mg/Syringe 11 ml @ 5.5 mls/min Q24H IV 05/28/18 11:00 06/07/18 10:59 05/28/18 10:22 5.5 MLS/MIN (Tamanna Aguirre CRNP) Objective Vital Signs Date Time Temp Pulse Resp B/P (MAP) Pulse Ox O2 Delivery O2 Flow Rate FiO2 05/28/18 11:54 36.9 94 18 104/51 (68) 94 05/28/18 08:15 Room Air 05/28/18 04:00 92 Nasal Cannula 2.0 05/28/18 03:30 38.6 116 22 114/66 (82) 93 Nasal Cannula 2.0 05/27/18 23:45 36.8 114 20 129/72 (91) 94 Room Air 05/27/18 20:00 95 Room Air 05/27/18 19:26 36.9 102 22 111/64 (80) 95 Room Air 05/27/18 15:59 37.3 93 18 112/42 (65) 97 Room Air (Tamanna Aguirre CRNP) Physical Exam Notes: General: no distress Eyes: normal inspection, PERLL Respiratory: chest non tender, clear to auscultation, normal breath sounds, no respiratory distress, no accessory muscle use Cardiac: regular rate and rhythm, no rub or gallop, 1/6 systolic murmur, +1 pitting edema bilaterally, no jvd GI/: active bowel sounds, no abd pain or tenderness, soft, non distended Extremities: normal range of motion, normal strength, non tender Neuro/Psych: alert and oriented x 3, normal mood and affect Skin: normal color, dry (Tamanna Aguirre CRNP) Laboratory Results Last 24 Hours Test 05/28/18 06:08 White Blood Count 8.94 K/uL Red Blood Count 4.04 M/uL Hemoglobin 11.4 g/dL Hematocrit 37.8 % Mean Corpuscular Volume 93.6 fL Mean Corpuscular Hemoglobin 28.2 pg Mean Corpuscular Hemoglobin Concent 30.2 g/dl RDW Standard Deviation 58.6 fL RDW Coefficient of Variation 17.0 % Platelet Count 206 K/uL Mean Platelet Volume 9.3 fL Sodium Level 139 mmol/L Potassium Level 5.5 mmol/L Chloride Level 104 mmol/L Carbon Dioxide Level 28 mmol/L Anion Gap 7.0 mmol/L Blood Urea Nitrogen 26 mg/dl Creatinine 2.37 mg/dl Est Creatinine Clear Calc Drug Dose 12.4 ml/min Estimated GFR () 20.5 Estimated GFR (Non- 17.7 BUN/Creatinine Ratio 11.1 Random Glucose 91 mg/dl Calcium Level 8.1 mg/dl (Tamanna Aguirre CRNP) Assessment and Plan Ms. Madison is an 88 y/o female here with sepsis secondary to UTI Sepsis secondary to UTI - lactic acid 2.37 and trended down. -Urine culture with E. Coli - awaiting sensitivities -Blood cultures pending -Rocephin 1 gm IV changed to cefepime IV due to continued fever and tachycardia after 24 hours of abx -NSS @ 100 cc/hr -Pt takes prednisone 5 mg PO qd chronically. Vitals currently stable, BP normotensive. Will hold off on stress dose steroids for now but can reconsider if decompensating Hyperkalemia - K 5.5 - dc/d K in IVF - Kayexalate 15 mg x 1 dose - repeat prp this afternoon CKD IV, low urine output, KOREY - Creat 2.37 - baseline around 2 - increase IVF to 100 ml/hr - For 8 hour daylight shift today, patient took in over 800 mls but only put out 100 mls - will order renal US and consult nephro, small 250 ml bolus and will repeat if patient tolerates well - repeat prp this afternoon Cyst in left adnexum on CT--stable -Pt has h/o left ovary cyst, per outpt records at least since 2014 CAD, h/o AL, HTN--stable -Continue ASA -Pt 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 She has refused statins - patient has loop recorder Anxiety -Continue doxepin 10 mg PO BID - low dose lorazepam prn for insomnia/anxiety 0.25 mg po Hypothyroidism -Continue Synthroid 50 mcg PO qd Peripheral edema -Hold torsemide for now DVT prophylaxis -Heparin 5000 units SC q12h Code Status -Level V, DO NOT RESUSCITATE (Tamanna Aguirre CRNP) [employer] Physician Supervision Note: I discussed with Tamanna Aguirre NP and agree with findings and plan as documented in the note. Any exceptions or clarifications are listed here: None Patient antibiotics changed today due to persistent fever and tachycardia. She had poor renal output in the afternoon was given a fluid bolus and renal ultrasound did not show any objective uropathy. Previous noted adnexal masses are once again seen on CT scan. We are waiting final sensitivities of E. coli UTI to amend antibiotics and continue to support her chronic kidney disease with IV fluids Documented By: Sherwin Ding (Sherwin Ding M.D.)
[2018-05-28] MEDS ORDERED: SODIUM CHLORIDE 0.9% 250ML 250 ML IV SCH (15:15)
--- NOTE | 2018-05-28 15:46 | DIAGNOSTIC IMAGING REPORT ---
RENAL ULTRASOUND CLINICAL HISTORY: Renal failure. Low urine output. COMPARISON STUDY: CT of the abdomen and pelvis May 27, 2018. TECHNIQUE: Sonography of the kidneys and the urinary bladder was performed. FINDINGS: The right kidney measures 7.9 cm in maximal dimension and the left measures 7.6 cm. There is moderate renal atrophy and increased renal echogenicity. There is no hydronephrosis. No renal calculi or masses are identified. Bladder is decompressed, containing a Alexander balloon. IMPRESSION: 1. No hydronephrosis. 2. Increased renal echogenicity consistent with medical renal disease. Moderate renal atrophy. Electronically signed by: Frank Velez M.D. 05/28/2018 3:45 PM Dictated Date/Time: 05/28/2018 3:44 PM
[2018-05-28 16:41] LABS: CALCIUM 7.9 mg/dl (8.5-10.1); CREATININE 2.4 mg/dl (0.60-1.20); POTASSIUM 5.4 mmol/L (3.5-5.1)
--- NOTE | 2018-05-28 16:56 | Nephrology Consultation ---
Nephrology Consultation Date & Providers Date of Consultation: May 28, 2018. Primary Care Provider: Mil Durand M.D. Referring Provider: Reason for Consultation CKD History of Present Illness Ms. Madison is a 88 year old white female who is seen at the request of the [facility] Hospitalist service for evaluation of CKD and low urine output. Medical records in the hospital EMR were reviewed today and are summarized as follows: Ms. Madison has stage IV CKD (baseline creatinine 2.1 w/ EGFR 20 cc/min) due to microvascular disease. Her medical history is also significant for HTN, ASCVD, PVD w/ diminished LE pulses, vitamin D deficiency, hypothyroidism, asthma and chronic LE edema. She has advanced arthritis requiring chronic Prednisone therapy. She has very limited mobility due to her arthritis and frail condition. Ms. Madison was admitted to [facility] 05/27/18 for evaluation of weakness and lethargy. The patient reports that she has been suffering from diarrhea over the last 2 - 3 days. Evaluation rhas revealed E. Coli UTI. Patient's condition improved following gentle hydration and initiation of antibiotic therapy. Nephrology consultation has been requested due to CKD and low urine output. Past Medical/Surgical History Medical: # CKD w/ baseline creatinine 2.1 due to microvascular disease # HTN # ASCVD # PVD w/ diminished LE pulses # Vitamin D deficiency # Hypothyroidism # Asthma # Chronic LE edema - legs wrapped w/ ZULLY bandages Allergies Coded Allergies: Codeine (Verified Allergy, Mild, 05/27/18) Penicillins (Verified Allergy, Mild, ., 05/27/18) tolerated cefepime Erythromycin (Verified Allergy, Unknown, ., 05/27/18) Sulfa Antibiotics (Verified Allergy, Unknown, Unknown, 05/27/18) Banana (Verified Adverse Reaction, Mild, GI symptoms, 05/28/18) Cantaloupe (Verified Adverse Reaction, Mild, GI SYMPTOMS FROM UNSPECIFIED MELONS, 05/28/18) Inpatient Medications Current Inpatient Medications Medications (Trade) Dose Ordered Sig/Zack Route Start Time Stop Time Status Last Admin Dose Admin Heparin Sodium (Porcine) (Heparin Sq 5000 Unit/0.5ml) 5,000 unit Q12 SQ 05/27/18 21:00 06/26/18 20:59 05/28/18 08:33 5,000 UNIT Acetaminophen (Tylenol Tab) 650 mg Q4H PRN PO 05/27/18 10:30 06/26/18 10:29 05/28/18 04:11 650 MG Al Hydrox/Mg Hydrox/Simethicone (Maalox Max Susp) 15 ml Q4H PRN PO 05/27/18 10:30 06/26/18 10:29 Magnesium Hydroxide (Milk Of Magnesia Susp) 30 ml Q12H PRN PO 05/27/18 10:30 06/26/18 10:29 Polyethylene (Miralax Powder Packet) 17 gm DAILY PRN PO 05/27/18 10:30 06/26/18 10:29 Albuterol (Ventolin Hfa Inhaler) 2 puffs Q6H PRN INH 05/27/18 11:00 06/26/18 10:59 Aspirin (Ecotrin Tab) 81 mg QAM PO 05/28/18 09:00 06/27/18 08:59 05/28/18 08:27 81 MG Cholecalciferol (Vitamin D Tab) 1,000 inter.unit QPM PO 05/27/18 21:00 06/26/18 20:59 Doxepin HCl (Sinequan Cap) 10 mg AMHS PO 05/27/18 21:00 06/26/18 20:59 05/28/18 08:28 10 MG Levothyroxine Sodium (Synthroid Tab) 50 mcg DAILYBB PO 05/28/18 06:00 06/27/18 05:59 05/28/18 05:18 50 MCG Morphine Sulfate (MoRPHine SULFATE IR TAB) 30 mg BID PO 05/27/18 21:00 06/10/18 20:59 05/28/18 08:27 30 MG Multivitamins/ Minerals (Multivitamin W/ Minerals Tab) 1 tab QPM PO 05/27/18 21:00 06/26/18 20:59 Potassium Chloride (Klor-Con M10) 10 meq QAM PO 05/28/18 09:00 06/27/18 08:59 05/28/18 08:28 10 MEQ Saccharomyces Boulardii (Florastor Cap) 250 mg DAILY PO 05/28/18 09:00 06/27/18 08:59 05/28/18 08:30 250 MG Prednisone (PredniSONE TAB) 5 mg QAM PO 05/28/18 09:00 8/22/18 08:59 05/28/18 08:29 5 MG Metoclopramide HCl (Reglan Inj) 10 mg Q6H PRN IV. 05/28/18 08:15 06/27/18 08:14 Sodium Chloride 1,000 ml @ 100 mls/hr Q10H IV 05/28/18 08:15 06/27/18 08:14 05/28/18 09:42 100 MLS/HR Cefepime HCl 1000 mg/Syringe 11 ml @ 5.5 mls/min Q24H IV 05/28/18 11:00 06/07/18 10:59 05/28/18 10:22 5.5 MLS/MIN Lorazepam (Ativan Tab) 0.25 mg BID PRN PO 05/28/18 12:15 06/27/18 12:14 Family History FH: heart disease Hypertension Kidney disease Kidney stones Myocardial infarction Prostate cancer Negative for CKD / ESRD Social History Smoking Status: Former Smoker Smokeless Tobacco Use: No Drug Use: none Marital Status: Housing Status: lives with family Occupation: retired . Former smoker. Review of Systems Constitutional: No fever Respiratory: No cough Cardiovascular: No chest pain Abdomen: + diarrhea, No pain, No vomiting Genitourinary - Female: No dysuria A complete review of systems was performed. Pertinent positives are noted above. All other systems are negative. Physical Exam Date Time Temp Pulse Resp B/P (MAP) Pulse Ox O2 Delivery O2 Flow Rate FiO2 05/28/18 15:31 36.9 91 20 113/54 (73) 94 Room Air 05/28/18 11:54 36.9 94 18 104/51 (68) 94 05/28/18 08:15 Room Air 05/28/18 04:00 92 Nasal Cannula 2.0 05/28/18 03:30 38.6 116 22 114/66 (82) 93 Nasal Cannula 2.0 05/27/18 23:45 36.8 114 20 129/72 (91) 94 Room Air 05/27/18 20:00 95 Room Air 05/27/18 19:26 36.9 102 22 111/64 (80) 95 Room Air General Appearance: no apparent distress Head: normocephalic Eyes: PERRL, EOMI Neck: no adenopathy Respiratory/Chest: lungs clear, no respiratory distress Cardiovascular: regular rate, rhythm Abdomen/GI: normal bowel sounds, non tender, soft Extremities/Musculoskelatal: + pertinent finding (no peripheral edema at this time) Laboratory Results Last 24 Hours Test 05/28/18 06:08 05/28/18 16:01 White Blood Count 8.94 K/uL Red Blood Count 4.04 M/uL Hemoglobin 11.4 g/dL Hematocrit 37.8 % Mean Corpuscular Volume 93.6 fL Mean Corpuscular Hemoglobin 28.2 pg Mean Corpuscular Hemoglobin Concent 30.2 g/dl RDW Standard Deviation 58.6 fL RDW Coefficient of Variation 17.0 % Platelet Count 206 K/uL Mean Platelet Volume 9.3 fL Sodium Level 139 mmol/L 138 mmol/L Potassium Level 5.5 mmol/L 5.4 mmol/L Chloride Level 104 mmol/L 104 mmol/L Carbon Dioxide Level 28 mmol/L 25 mmol/L Anion Gap 7.0 mmol/L 9.0 mmol/L Blood Urea Nitrogen 26 mg/dl 28 mg/dl Creatinine 2.37 mg/dl 2.40 mg/dl Est Creatinine Clear Calc Drug Dose 12.4 ml/min 12.2 ml/min Estimated GFR () 20.5 20.2 Estimated GFR (Non- 17.7 17.4 BUN/Creatinine Ratio 11.1 11.5 Random Glucose 91 mg/dl 124 mg/dl Calcium Level 8.1 mg/dl 7.9 mg/dl Impression (1) Urinary tract infection (2) Chronic kidney disease (3) Dehydration Recommendations CHRONIC KIDNEY DISEASE: -- Kidney function remains stable at this time. Will continue to monitor HYPERKALEMIA: -- KCl has been removed from IVF and 15 g Kayexelate administered OLIGURIA: -- Patient remains volume contracted -- Continue 0.9 NS at 100 cc/hr and encourage oral hydration ID: -- E. Coli UTI on Cefepime therapy -- If diarrhea persists, consider checking stool for C. Difficile toxin
[2018-05-29] VITALS (9 sets, daily range): BP systolic 109–147; BP diastolic 56–96; PULSE 83–101; TEMP 36.3–36.9; O2SAT 93–98
[2018-05-29] MEDS: ACETAMINOPHEN 325 MG TAB PO PRN (04:34)
[2018-05-29 06:07] LABS: HEMOGLOBIN 9.3 g/dL (12.0-16.0); MEAN CORPUSCULAR HEMOGLOBIN 27.6 pg (25-34); MEAN PLATELET VOLUME 9.5 fL (7.4-10.4); PLATELET COUNT 167 K/uL (130-400); RED CELL DISTRIBUTION WIDTH CV 16.8 % (11.5-14.5); RED CELL DISTRIBUTION WIDTH SD 56.4 fL (36.4-46.3); WHITE BLOOD COUNT 5.05 K/uL (4.8-10.8)
[2018-05-29] MEDS: LEVOTHYROXINE 50 MCG TAB PO SCH (06:18)
[2018-05-29 06:34] LABS: CALCIUM 6.8 mg/dl (8.5-10.1); CREATININE 1.84 mg/dl (0.60-1.20); POTASSIUM 3.6 mmol/L (3.5-5.1)
[2018-05-29] MEDS: SODIUM CHLORIDE 0.9% 1000ML 1,000 ML IV SCH ×2 (08:08→14:55)
[2018-05-29] MEDS: MoRPHine SULFATE IR 15 MG TAB (IMMEDIATE RELEASE) PO SCH ×2 (08:14→21:24)
[2018-05-29] MEDS: ASPIRIN 81 MG ECTAB PO SCH (08:14)
[2018-05-29] MEDS: SACCHAROMYCES BOUL (FLORASTOR) 250 MG CAP PO SCH (08:14)
[2018-05-29] MEDS: POTASSIUM CHLORIDE 10 MEQ TABCR PO SCH (08:15)
[2018-05-29] MEDS: DOXEPIN HCL 10 MG CAP PO SCH ×2 (08:15→21:25)
[2018-05-29] MEDS: HEPARIN SOD 5000 UNIT/0.5 ML CARP SQ SCH ×2 (08:20→21:27)
--- NOTE | 2018-05-29 10:17 | Hospitalist Progress Note ---
Hospitalist Progress Note Date of Service May 29, 2018. (Tamanna Aguirre .LION) Subjective Pt evaluation today including: conversation w/ patient, physical exam, chart review, lab review, review of inpatient medication list Voiding: kuhn catheter in place Ms. Madison is feeling better this morning, no pain or sob. She is looking forward to returning home. She does complain of some swelling in her left arm. Per nursing, patient had IV infiltrate overnight in that arm. She continues to have diarrhea which she says she has had on and off for months. ROS Constitutional: no chills, aches, sweats or fever Respiratory: no sob,cough, sputum, or wheezing Cardiac: no chest pain, palpitations, edema, orthopnea or lightheadedness GI: no abdominal pain, nausea, vomiting, : no dysuria or hesitancy Extremities: no joint pain or weakness Skin: no rash All other systems reviewed and negative (Tamanna Aguirre .LION) Medications Medications Administered Medications (Trade) Dose Ordered Sig/Zack Route Start Time Stop Time Status Last Admin Dose Admin Vancomycin HCl 270 ml @ 125 mls/hr NOW STAT IV 05/27/18 07:40 05/27/18 09:49 DC 05/27/18 08:50 125 MLS/HR Acetaminophen (Tylenol Tab) 1,000 mg NOW STAT PO 05/27/18 08:27 05/27/18 08:29 DC 05/27/18 08:50 1,000 MG Sodium Chloride 1,000 ml @ 100 mls/hr Q10H STAT IV 05/27/18 08:56 05/27/18 11:58 DC 05/27/18 09:32 100 MLS/HR Heparin Sodium (Porcine) (Heparin Sq 5000 Unit/0.5ml) 5,000 unit Q12 SQ 05/27/18 21:00 06/26/18 20:59 05/29/18 08:20 5,000 UNIT Potassium Chloride/Sodium Chloride 1,000 ml @ 80 mls/hr [id number] IV 05/27/18 12:15 05/28/18 08:17 DC 05/28/18 00:22 80 MLS/HR Acetaminophen (Tylenol Tab) 650 mg Q4H PRN PO 05/27/18 10:30 06/26/18 10:29 05/29/18 04:34 650 MG Ceftriaxone Sodium 1 gm/ Dextrose 50 ml @ 100 mls/hr Q24H IV 05/27/18 12:00 05/28/18 08:39 DC 05/27/18 12:42 100 MLS/HR Aspirin (Ecotrin Tab) 81 mg QAM PO 05/28/18 09:00 06/27/18 08:59 05/29/18 08:14 81 MG Cholecalciferol (Vitamin D Tab) 1,000 inter.unit QPM PO 05/27/18 21:00 06/26/18 20:59 05/28/18 21:44 1,000 INTER.UNIT Doxepin HCl (Sinequan Cap) 10 mg AMHS PO 05/27/18 21:00 06/26/18 20:59 05/29/18 08:15 10 MG Levothyroxine Sodium (Synthroid Tab) 50 mcg DAILYBB PO 05/28/18 06:00 06/27/18 05:59 05/29/18 06:18 50 MCG Morphine Sulfate (MoRPHine SULFATE IR TAB) 30 mg BID PO 05/27/18 21:00 06/10/18 20:59 05/29/18 08:14 30 MG Multivitamins/ Minerals (Multivitamin W/ Minerals Tab) 1 tab QPM PO 05/27/18 21:00 06/26/18 20:59 05/28/18 21:45 1 TAB Potassium Chloride (Klor-Con M10) 10 meq QAM PO 05/28/18 09:00 06/27/18 08:59 05/29/18 08:15 10 MEQ Saccharomyces Boulardii (Florastor Cap) 250 mg DAILY PO 05/28/18 09:00 06/27/18 08:59 05/29/18 08:14 250 MG Prednisone (PredniSONE TAB) 5 mg QAM PO 05/28/18 09:00 06/27/18 08:59 05/29/18 08:14 5 MG Ondansetron HCl (Zofran Inj) 4 mg Q4H PRN IV 05/27/18 20:00 05/28/18 08:15 DC 05/28/18 04:11 4 MG Sodium Chloride 250 ml @ 999 mls/hr TODAY@0645 ONCE IV 05/28/18 06:45 05/28/18 07:00 DC 05/28/18 07:14 999 MLS/HR Sodium Chloride 1,000 ml @ 100 mls/hr Q10H IV 05/28/18 08:15 06/27/18 08:14 05/29/18 08:08 100 MLS/HR Sodium Polystyrene Sulfonate (Kayexalate Susp) 15 gm NOW STAT PO 05/28/18 08:31 05/28/18 08:32 DC 05/28/18 10:22 15 GM Cefepime HCl 1000 mg/Syringe 11 ml @ 5.5 mls/min Q24H IV 05/28/18 11:00 06/07/18 10:59 05/28/18 10:22 5.5 MLS/MIN Sodium Chloride 250 ml @ 250 mls/hr Q1H IV 05/28/18 15:15 05/28/18 16:14 DC 05/28/18 15:45 250 MLS/HR Sodium Polystyrene Sulfonate (Kayexalate Susp) 15 gm NOW STAT PO 05/28/18 17:21 05/28/18 17:28 DC 05/28/18 17:55 15 GM (Tamanna Aguirre CRNP) Objective Vital Signs Date Time Temp Pulse Resp B/P (MAP) Pulse Ox O2 Delivery O2 Flow Rate FiO2 05/29/18 08:00 Room Air 05/29/18 06:30 36.8 86 22 142/77 (98) 94 Room Air 05/29/18 04:20 Room Air 05/29/18 03:55 36.8 83 18 142/96 (111) 95 Room Air 05/28/18 23:19 37.0 89 20 158/84 (108) 94 Room Air 05/28/18 20:00 98 Room Air 05/28/18 19:35 36.9 92 16 118/66 (83) 98 Room Air 05/28/18 15:31 36.9 91 20 113/54 (73) 94 Room Air 05/28/18 11:54 36.9 94 18 104/51 (68) 94 (Tamanna Aguirre CRNP) Physical Exam Notes: General: no distress Eyes: normal inspection, PERLL Respiratory: chest non tender, clear to auscultation, normal breath sounds, no respiratory distress, no accessory muscle use Cardiac: regular rate and rhythm, no rub or gallop, no murmur, trace bilateral edema le, left arm +2 pitting edema GI/: active bowel sounds, no abd pain or tenderness, soft, non distended Extremities: normal range of motion, normal strength, non tender Neuro/Psych: alert and oriented x 3, normal mood and affect Skin: normal color, dry (Tamanna Aguirre, LION) Laboratory Results Last 24 Hours Test 05/28/18 16:01 05/29/18 05:31 05/29/18 09:57 Sodium Level 138 mmol/L 139 mmol/L Potassium Level 5.4 mmol/L 3.6 mmol/L Chloride Level 104 mmol/L 106 mmol/L Carbon Dioxide Level 25 mmol/L 25 mmol/L Anion Gap 9.0 mmol/L 8.0 mmol/L Blood Urea Nitrogen 28 mg/dl 24 mg/dl Creatinine 2.40 mg/dl 1.84 mg/dl Est Creatinine Clear Calc Drug Dose 12.2 ml/min 17.7 ml/min Estimated GFR () 20.2 27.9 Estimated GFR (Non- 17.4 24.0 BUN/Creatinine Ratio 11.5 12.8 Random Glucose 124 mg/dl 103 mg/dl Calcium Level 7.9 mg/dl 6.8 mg/dl White Blood Count 5.05 K/uL Red Blood Count 3.37 M/uL Hemoglobin 9.3 g/dL Hematocrit 31.0 % Mean Corpuscular Volume 92.0 fL Mean Corpuscular Hemoglobin 27.6 pg Mean Corpuscular Hemoglobin Concent 30.0 g/dl RDW Standard Deviation 56.4 fL RDW Coefficient of Variation 16.8 % Platelet Count 167 K/uL Mean Platelet Volume 9.5 fL (Tamanna Aguirre CRNP) Assessment and Plan Ms. Madison is an 88 y/o female here with sepsis secondary to UTI Sepsis secondary to UTI - lactic acid 2.37 and trended down. -Urine culture with girard sensitive E. Coli - will change patient to po cefuroxime from IV cefepime -Blood cultures ngtd -will continue NSS @ 100 cc/hr for low output x1 more liter - will need to monitor for overload as patient is up 4200 ml -Pt takes prednisone 5 mg PO qd chronically. Vitals currently stable, BP slightly hypertensive. Will hold off on stress dose steroids for now but can reconsider if decompensating Hyperkalemia - resolved - dc/d K in IVF - Kayexalate given 15 mg x 2 doses - repeat prp am CKD IV, low urine output - Creat down to 1.84 from 2.37 - baseline around 2 - increased IVF to 100 ml/hr - as above - prp am QT prolongation - QTc 548 - no dysrhythmia on tele - running NSR - daily EKG, discontinued medications that can prolong QT - prp am to monitor electrolytes Cyst in left adnexum on CT--stable -Pt has h/o left ovary cyst, per outpt records at least since 2014 CAD, h/o TX, HTN--stable -Continue ASA -Pt 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 She has refused statins - patient has loop recorder Anemia of chronic disease - fecal occult negative, likely dilutional drop in hgb Diarrhea - c.diff negative. Patient reports history of diarrhea over past few months. Anxiety -Continue doxepin 10 mg PO BID - low dose lorazepam prn for insomnia/anxiety 0.25 mg po Hypothyroidism -Continue Synthroid 50 mcg PO qd Peripheral edema -Hold torsemide for now DVT prophylaxis -Heparin 5000 units SC q12h Code Status -Level V, DO NOT RESUSCITATE Dispo: PT/OT evals ordered, will transfer to med/surg (Tamanna Aguirre ., LION) [employer] Physician Supervision Note: I interviewed and examined the patient. Discussed with Tamanna Aguirre [employer] and agree with findings and plan as documented in the note. Any exceptions or clarifications are listed here: None Patient was visited and had no focal complaints she is being treated for pansensitive E. coli UTI. We are awaiting PT and OT evaluations before we determine disposition as the patient is a prehospital arthritis which does limit her mobility somewhat vitals are stable continue her care watching her QT prolongation as we are stopping medications that may affect the same Documented By: Sherwin Ding (Sherwin Ding M.D.)
--- NOTE | 2018-05-29 12:05 | Nephrology Progress Note ---
Nephrology Progress Note Date of Service May 29, 2018. Chief Complaint CKD Subjective Ms. Madison was seen & examined in her hospital room this morning. She continues to have loose bowel movements. She is tolerating IV hydration without dyspnea. Her IV infiltrated yesterday and her L arm has swollen. Patient remains oliguric and only had 400 cc UO overnight. Review of Systems Constitutional: No fever Cardiovascular: No chest pain Respiratory: No dyspnea at rest Abdomen: No pain, No nausea, No vomiting Extremities: No leg edema A complete review of systems was performed. Pertinent positives are noted above. All other systems are negative. Vital Signs Last 8 Hrs Date Time Temp Pulse Resp B/P (MAP) Pulse Ox O2 Delivery O2 Flow Rate FiO2 05/29/18 08:00 Room Air 05/29/18 06:30 36.8 86 22 142/77 (98) 94 Room Air 05/29/18 04:20 Room Air Last Recorded Weight Weight (Kilograms): 60.900 Physical Exam General Appearance: no apparent distress Head: normocephalic Eyes: PERRL, EOMI Neck: supple, no adenopathy Respiratory/Chest: lungs clear, no respiratory distress Cardiovascular: regular rate, rhythm Abdomen/GI: normal bowel sounds, non tender, soft Extremities/Musculoskelatal: + pertinent finding (No LE edema. L arm with dependent swelling from infiltrated IV) Neurologic/Psych: alert Family History FH: heart disease Hypertension Kidney disease Kidney stones Myocardial infarction Prostate cancer Negative for CKD / ESRD Social History Smoking Status: Never smoker Smokeless Tobacco Use: No Drug Use: none Marital Status: Housing Status: lives with family Occupation: retired . Former smoker. Laboratory Results Past 24 Hours 05/29/18 05:31 05/28/18 16:01 05/29/18 05:31 Test 05/28/18 16:01 05/29/18 00:00 05/29/18 05:31 Anion Gap 9.0 mmol/L (3-11) 8.0 mmol/L (3-11) Est Creatinine Clear Calc Drug Dose 12.2 ml/min 17.7 ml/min Estimated GFR () 20.2 27.9 Estimated GFR (Non- 17.4 24.0 BUN/Creatinine Ratio 11.5 (10-20) 12.8 (10-20) Calcium Level 7.9 mg/dl (8.5-10.1) 6.8 mg/dl (8.5-10.1) Stool Occult Blood NEGATIVE (NEGATIVE) Red Blood Count 3.37 M/uL (4.2-5.4) Mean Corpuscular Volume 92.0 fL (80-100) Mean Corpuscular Hemoglobin 27.6 pg (25-34) Mean Corpuscular Hemoglobin Concent 30.0 g/dl (32-36) RDW Standard Deviation 56.4 fL (36.4-46.3) RDW Coefficient of Variation 16.8 % (11.5-14.5) Mean Platelet Volume 9.5 fL (7.4-10.4) Magnesium Level 2.1 mg/dl (1.8-2.4) Allergies Coded Allergies: Codeine (Verified Allergy, Mild, 05/27/18) Penicillins (Verified Allergy, Mild, ., 05/27/18) tolerated cefepime Erythromycin (Verified Allergy, Unknown, ., 05/27/18) Sulfa Antibiotics (Verified Allergy, Unknown, Unknown, 05/27/18) Banana (Verified Adverse Reaction, Mild, GI symptoms, 05/28/18) Cantaloupe (Verified Adverse Reaction, Mild, GI SYMPTOMS FROM UNSPECIFIED MELONS, 05/28/18) Medications Current Inpatient Medications Medications (Trade) Dose Ordered Sig/Zack Route Start Time Stop Time Status Last Admin Dose Admin Heparin Sodium (Porcine) (Heparin Sq 5000 Unit/0.5ml) 5,000 unit Q12 SQ 05/27/18 21:00 06/26/18 20:59 05/29/18 08:20 5,000 UNIT Acetaminophen (Tylenol Tab) 650 mg Q4H PRN PO 05/27/18 10:30 06/26/18 10:29 05/29/18 04:34 650 MG Al Hydrox/Mg Hydrox/Simethicone (Maalox Max Susp) 15 ml Q4H PRN PO 05/27/18 10:30 06/26/18 10:29 Magnesium Hydroxide (Milk Of Magnesia Susp) 30 ml Q12H PRN PO 05/27/18 10:30 06/26/18 10:29 Polyethylene (Miralax Powder Packet) 17 gm DAILY PRN PO 05/27/18 10:30 06/26/18 10:29 Albuterol (Ventolin Hfa Inhaler) 2 puffs Q6H PRN INH 05/27/18 11:00 06/26/18 10:59 Aspirin (Ecotrin Tab) 81 mg QAM PO 05/28/18 09:00 06/27/18 08:59 05/29/18 08:14 81 MG Cholecalciferol (Vitamin D Tab) 1,000 inter.unit QPM PO 05/27/18 21:00 06/26/18 20:59 05/28/18 21:44 1,000 INTER.UNIT Doxepin HCl (Sinequan Cap) 10 mg AMHS PO 05/27/18 21:00 06/26/18 20:59 05/29/18 08:15 10 MG Levothyroxine Sodium (Synthroid Tab) 50 mcg DAILYBB PO 05/28/18 06:00 06/27/18 05:59 05/29/18 06:18 50 MCG Morphine Sulfate (MoRPHine SULFATE IR TAB) 30 mg BID PO 05/27/18 21:00 06/10/18 20:59 05/29/18 08:14 30 MG Multivitamins/ Minerals (Multivitamin W/ Minerals Tab) 1 tab QPM PO 05/27/18 21:00 06/26/18 20:59 05/28/18 21:45 1 TAB Potassium Chloride (Klor-Con M10) 10 meq QAM PO 05/28/18 09:00 06/27/18 08:59 05/29/18 08:15 10 MEQ Saccharomyces Boulardii (Florastor Cap) 250 mg DAILY PO 05/28/18 09:00 06/27/18 08:59 05/29/18 08:14 250 MG Prednisone (PredniSONE TAB) 5 mg QAM PO 05/28/18 09:00 06/27/18 08:59 05/29/18 08:14 5 MG Sodium Chloride 1,000 ml @ 100 mls/hr Q10H IV 05/28/18 08:15 06/27/18 08:14 05/29/18 08:08 100 MLS/HR Lorazepam (Ativan Tab) 0.25 mg BID PRN PO 05/28/18 12:15 06/27/18 12:14 Cefuroxime Axetil (Ceftin Tab) 500 mg Q24H PO 05/29/18 12:00 06/08/18 11:59 Impression (1) Urinary tract infection (2) Chronic kidney disease (3) Dehydration Recommendations CHRONIC KIDNEY DISEASE: -- Kidney function remains stable at this time. Will continue to monitor HYPERKALEMIA: -- Serum potassium has corrected. Will monitor OLIGURIA: -- Patient remains volume contracted -- Continue 0.9 NS at 100 cc/hr and encourage oral hydration. Heplock IV in am ID: -- E. Coli UTI on Cefepime therapy -- Diarrhea persists. Stool for C. Difficile toxin has been ordered.
[2018-05-29] MEDS: CEFUROXIME AXETIL 500 MG TAB PO SCH (12:08)
[2018-05-29] MEDS ORDERED: LORAZEPAM INJ 0.25 MG in SYRINGE 0.25 ML IV ONE (15:15)
[2018-05-29] MEDS ORDERED: LORAZEPAM INJ 0.25 MG in SYRINGE 0.125 ML IV ONE (15:30)
[2018-05-29] MEDS ORDERED: NURSING VERBAL MED ORDER ONE ×2 (18:30)
[2018-05-29] MEDS ORDERED: SODIUM CHLORIDE 0.9% 250ML 250 ML IV ONE (18:45)
[2018-05-29] MEDS: CHOLECALCIFEROL 1000 INTER.UNIT TAB PO SCH (21:25)
[2018-05-29] MEDS: CEROVITE ADV FORMULA TAB PO SCH (21:25)
[2018-05-30] MEDS: LORAZEPAM 0.5 MG TAB PO PRN ×2 (03:17→23:24)
[2018-05-30] MEDS: LEVOTHYROXINE 50 MCG TAB PO SCH (06:33)
[2018-05-30] MEDS: SODIUM CHLORIDE 0.9% 1000ML 1,000 ML IV SCH (06:33)
[2018-05-30 07:00] VITALS: BP 99/70; PULSE 75; TEMP 36.7; O2SAT 93
[2018-05-30] MEDS: POTASSIUM CHLORIDE 10 MEQ TABCR PO SCH (08:29)
[2018-05-30] MEDS: DOXEPIN HCL 10 MG CAP PO SCH ×2 (08:29→20:44)
[2018-05-30] MEDS: SACCHAROMYCES BOUL (FLORASTOR) 250 MG CAP PO SCH (08:30)
[2018-05-30] MEDS: ASPIRIN 81 MG ECTAB PO SCH (08:30)
[2018-05-30] MEDS: HEPARIN SOD 5000 UNIT/0.5 ML CARP SQ SCH ×2 (08:37→21:09)
[2018-05-30] MEDS: MoRPHine SULFATE IR 15 MG TAB (IMMEDIATE RELEASE) PO SCH ×2 (08:39→20:57)
[2018-05-30 09:45] LABS: HEMATOCRIT 33.7 % (37-47); HEMOGLOBIN 10.3 g/dL (12.0-16.0); MEAN CELL VOLUME 93.4 fL (80-100); MEAN CORPUSCULAR HEMOGLOBIN 28.5 pg (25-34); MEAN CORPUSCULAR HGB CONC 30.6 g/dl (32-36); MEAN PLATELET VOLUME 9.8 fL (7.4-10.4); PLATELET COUNT 214 K/uL (130-400); RED CELL DISTRIBUTION WIDTH CV 17.2 % (11.5-14.5); RED CELL DISTRIBUTION WIDTH SD 59.1 fL (36.4-46.3); WHITE BLOOD COUNT 6.72 K/uL (4.8-10.8)
--- NOTE | 2018-05-30 12:03 | Nephrology Progress Note ---
Nephrology Progress Note Date of Service May 30, 2018. Chief Complaint CKD Subjective Ms. Madison was seen & examined in her hospital room this morning. She reports that her diarrhea has improved. She is tolerating her diet. She reports increased urine output. Ms. Madison voices no new medical concerns. Review of Systems Constitutional: No fever Cardiovascular: No chest pain Respiratory: No dyspnea at rest Abdomen: No pain, No nausea, No vomiting Extremities: No leg edema A complete review of systems was performed. Pertinent positives are noted above. All other systems are negative. Vital Signs Last 8 Hrs Date Time Temp Pulse Resp B/P (MAP) Pulse Ox O2 Delivery O2 Flow Rate FiO2 05/30/18 08:00 Room Air 05/30/18 07:00 36.7 75 16 99/70 (80) 93 Room Air Last Recorded Weight Weight (Kilograms): 63.500 Physical Exam General Appearance: no apparent distress Head: normocephalic, atraumatic Eyes: PERRL, EOMI Neck: no adenopathy Respiratory/Chest: lungs clear, no respiratory distress Cardiovascular: regular rate, rhythm Abdomen/GI: normal bowel sounds, non tender, soft Extremities/Musculoskelatal: no calf tenderness, no pedal edema Neurologic/Psych: alert, oriented x 3 Family History FH: heart disease Hypertension Kidney disease Kidney stones Myocardial infarction Prostate cancer Negative for CKD / ESRD Social History Smoking Status: Never smoker Smokeless Tobacco Use: No Drug Use: none Marital Status: Housing Status: lives with family Occupation: retired . Former smoker. Laboratory Results Past 24 Hours 05/30/18 09:17 Test 05/30/18 09:17 Red Blood Count 3.61 M/uL (4.2-5.4) Mean Corpuscular Volume 93.4 fL (80-100) Mean Corpuscular Hemoglobin 28.5 pg (25-34) Mean Corpuscular Hemoglobin Concent 30.6 g/dl (32-36) RDW Standard Deviation 59.1 fL (36.4-46.3) RDW Coefficient of Variation 17.2 % (11.5-14.5) Mean Platelet Volume 9.8 fL (7.4-10.4) Allergies Coded Allergies: Codeine (Verified Allergy, Mild, 05/27/18) Penicillins (Verified Allergy, Mild, ., 05/27/18) tolerated cefepime Erythromycin (Verified Allergy, Unknown, ., 05/27/18) Sulfa Antibiotics (Verified Allergy, Unknown, Unknown, 05/27/18) Banana (Verified Adverse Reaction, Mild, GI symptoms, 05/28/18) Cantaloupe (Verified Adverse Reaction, Mild, GI SYMPTOMS FROM UNSPECIFIED MELONS, 05/28/18) Medications Current Inpatient Medications Medications (Trade) Dose Ordered Sig/Zack Route Start Time Stop Time Status Last Admin Dose Admin Heparin Sodium (Porcine) (Heparin Sq 5000 Unit/0.5ml) 5,000 unit Q12 SQ 05/27/18 21:00 06/26/18 20:59 05/30/18 08:37 5,000 UNIT Acetaminophen (Tylenol Tab) 650 mg Q4H PRN PO 05/27/18 10:30 06/26/18 10:29 05/29/18 04:34 650 MG Al Hydrox/Mg Hydrox/Simethicone (Maalox Max Susp) 15 ml Q4H PRN PO 05/27/18 10:30 06/26/18 10:29 Magnesium Hydroxide (Milk Of Magnesia Susp) 30 ml Q12H PRN PO 05/27/18 10:30 06/26/18 10:29 Polyethylene (Miralax Powder Packet) 17 gm DAILY PRN PO 05/27/18 10:30 06/26/18 10:29 Albuterol (Ventolin Hfa Inhaler) 2 puffs Q6H PRN INH 05/27/18 11:00 06/26/18 10:59 Aspirin (Ecotrin Tab) 81 mg QAM PO 05/28/18 09:00 06/27/18 08:59 05/30/18 08:30 81 MG Cholecalciferol (Vitamin D Tab) 1,000 inter.unit QPM PO 05/27/18 21:00 06/26/18 20:59 05/29/18 21:25 1,000 INTER.UNIT Doxepin HCl (Sinequan Cap) 10 mg AMHS PO 05/27/18 21:00 06/26/18 20:59 05/30/18 08:29 10 MG Levothyroxine Sodium (Synthroid Tab) 50 mcg DAILYBB PO 05/28/18 06:00 06/27/18 05:59 05/30/18 06:33 50 MCG Morphine Sulfate (MoRPHine SULFATE IR TAB) 30 mg BID PO 05/27/18 21:00 06/10/18 20:59 05/30/18 08:39 30 MG Multivitamins/ Minerals (Multivitamin W/ Minerals Tab) 1 tab QPM PO 05/27/18 21:00 06/26/18 20:59 05/29/18 21:25 1 TAB Potassium Chloride (Klor-Con M10) 10 meq QAM PO 05/28/18 09:00 06/27/18 08:59 05/30/18 08:29 10 MEQ Saccharomyces Boulardii (Florastor Cap) 250 mg DAILY PO 05/28/18 09:00 06/27/18 08:59 05/30/18 08:30 250 MG Prednisone (PredniSONE TAB) 5 mg QAM PO 05/28/18 09:00 06/27/18 08:59 05/30/18 08:31 5 MG Sodium Chloride 1,000 ml @ 100 mls/hr Q10H IV 05/28/18 08:15 06/27/18 08:14 05/30/18 06:33 100 MLS/HR Lorazepam (Ativan Tab) 0.25 mg BID PRN PO 05/28/18 12:15 06/27/18 12:14 05/30/18 03:17 0.25 MG Cefuroxime Axetil (Ceftin Tab) 500 mg Q24H PO 05/29/18 12:00 06/08/18 11:59 05/29/18 12:08 500 MG Impression (1) Urinary tract infection (2) Chronic kidney disease (3) Dehydration Recommendations CHRONIC KIDNEY DISEASE: -- Kidney function has returned to baseline. Electrolyte balance is acceptable. OLIGURIA: -- Patient is now nonoliguric. Will heplock IV. Encourage oral hydration. ID: -- E. Coli UTI on oral Ceftin therapy -- Stool was negative for C. Difficile toxin Will sign off. Please call if further Nephrology assistance is needed.
[2018-05-30] MEDS: CEFUROXIME AXETIL 500 MG TAB PO SCH (12:31)
--- NOTE | 2018-05-30 12:46 | Hospitalist Progress Note ---
Hospitalist Progress Note Date of Service May 30, 2018. (Tamanna Aguirre CRNP) Subjective Pt evaluation today including: conversation w/ patient, physical exam, chart review, lab review, review of inpatient medication list Ms. Marcus continued to have low output last evening requiring a small 250 ml bolus and continued IVF today. She is in good spirits. I did talk to her about inpatient rehab and explained why it was recommended but she refused. Case management also discussed the recommendations for 24 hour care with the patient' s daughter and the family agrees that they can take care of her at home without rehab ROS Constitutional: no chills, aches, sweats or fever Respiratory: no sob,cough, sputum, or wheezing Cardiac: no chest pain, palpitations, edema, orthopnea or lightheadedness GI: no abdominal pain, nausea, vomiting, diarrhea or constipation : no dysuria or hesitancy Extremities: no joint pain or weakness Skin: no rash All other systems reviewed and negative (Tamanna Aguirre CRNP) Medications Medications Administered Medications (Trade) Dose Ordered Sig/Zack Route Start Time Stop Time Status Last Admin Dose Admin Vancomycin HCl 270 ml @ 125 mls/hr NOW STAT IV 05/27/18 07:40 05/27/18 09:49 DC 05/27/18 08:50 125 MLS/HR Acetaminophen (Tylenol Tab) 1,000 mg NOW STAT PO 05/27/18 08:27 05/27/18 08:29 DC 05/27/18 08:50 1,000 MG Sodium Chloride 1,000 ml @ 100 mls/hr Q10H STAT IV 05/27/18 08:56 05/27/18 11:58 DC 05/27/18 09:32 100 MLS/HR Heparin Sodium (Porcine) (Heparin Sq 5000 Unit/0.5ml) 5,000 unit Q12 SQ 05/27/18 21:00 06/26/18 20:59 05/30/18 08:37 5,000 UNIT Potassium Chloride/Sodium Chloride 1,000 ml @ 80 mls/hr [id number] IV 05/27/18 12:15 05/28/18 08:17 DC 05/28/18 00:22 80 MLS/HR Acetaminophen (Tylenol Tab) 650 mg Q4H PRN PO 05/27/18 10:30 06/26/18 10:29 05/29/18 04:34 650 MG Ceftriaxone Sodium 1 gm/ Dextrose 50 ml @ 100 mls/hr Q24H IV 05/27/18 12:00 05/28/18 08:39 DC 05/27/18 12:42 100 MLS/HR Aspirin (Ecotrin Tab) 81 mg QAM PO 05/28/18 09:00 06/27/18 08:59 05/30/18 08:30 81 MG Cholecalciferol (Vitamin D Tab) 1,000 inter.unit QPM PO 05/27/18 21:00 06/26/18 20:59 05/29/18 21:25 1,000 INTER.UNIT Doxepin HCl (Sinequan Cap) 10 mg AMHS PO 05/27/18 21:00 06/26/18 20:59 05/30/18 08:29 10 MG Levothyroxine Sodium (Synthroid Tab) 50 mcg DAILYBB PO 05/28/18 06:00 06/27/18 05:59 05/30/18 06:33 50 MCG Morphine Sulfate (MoRPHine SULFATE IR TAB) 30 mg BID PO 05/27/18 21:00 06/10/18 20:59 05/30/18 08:39 30 MG Multivitamins/ Minerals (Multivitamin W/ Minerals Tab) 1 tab QPM PO 05/27/18 21:00 06/26/18 20:59 05/29/18 21:25 1 TAB Potassium Chloride (Klor-Con M10) 10 meq QAM PO 05/28/18 09:00 06/27/18 08:59 05/30/18 08:29 10 MEQ Saccharomyces Boulardii (Florastor Cap) 250 mg DAILY PO 05/28/18 09:00 06/27/18 08:59 05/30/18 08:30 250 MG Prednisone (PredniSONE TAB) 5 mg QAM PO 05/28/18 09:00 06/27/18 08:59 05/30/18 08:31 5 MG Ondansetron HCl (Zofran Inj) 4 mg Q4H PRN IV 05/27/18 20:00 05/28/18 08:15 DC 05/28/18 04:11 4 MG Sodium Chloride 250 ml @ 999 mls/hr TODAY@0645 ONCE IV 05/28/18 06:45 05/28/18 07:00 DC 05/28/18 07:14 999 MLS/HR Sodium Chloride 1,000 ml @ 100 mls/hr Q10H IV 05/28/18 08:15 05/30/18 12:04 DC 05/30/18 06:33 100 MLS/HR Sodium Polystyrene Sulfonate (Kayexalate Susp) 15 gm NOW STAT PO 05/28/18 08:31 05/28/18 08:32 DC 05/28/18 10:22 15 GM Cefepime HCl 1000 mg/Syringe 11 ml @ 5.5 mls/min Q24H IV 05/28/18 11:00 05/29/18 10:12 DC 05/28/18 10:22 5.5 MLS/MIN Lorazepam (Ativan Tab) 0.25 mg BID PRN PO 05/28/18 12:15 06/27/18 12:14 05/30/18 03:17 0.25 MG Sodium Chloride 250 ml @ 250 mls/hr Q1H IV 05/28/18 15:15 05/28/18 16:14 DC 05/28/18 15:45 250 MLS/HR Sodium Polystyrene Sulfonate (Kayexalate Susp) 15 gm NOW STAT PO 05/28/18 17:21 05/28/18 17:28 DC 05/28/18 17:55 15 GM Cefuroxime Axetil (Ceftin Tab) 500 mg Q24H PO 05/29/18 12:00 06/08/18 11:59 05/29/18 12:08 500 MG Lorazepam 0.25 mg/ Syringe 0.25 ml @ 1 mls/min NOW ONCE IV 05/29/18 15:30 05/29/18 15:31 DC 05/29/18 16:39 1 MLS/MIN Sodium Chloride 250 ml @ 999 mls/hr Q16M ONCE IV 05/29/18 18:45 05/29/18 19:00 DC 05/29/18 18:47 999 MLS/HR (Tamanna Aguirre, LION) Objective Vital Signs Date Time Temp Pulse Resp B/P (MAP) Pulse Ox O2 Delivery O2 Flow Rate FiO2 05/30/18 08:00 Room Air 05/30/18 07:00 36.7 75 16 99/70 (80) 93 Room Air 05/29/18 22:56 36.4 85 16 145/56 (85) 98 Room Air 05/29/18 20:33 36.3 89 18 109/57 (74) 93 Room Air 05/29/18 20:00 Room Air 05/29/18 15:47 36.9 99 18 147/89 (108) 95 Room Air 05/29/18 14:30 96 Room Air 05/29/18 14:12 36.8 101 16 96 2.0 (Tamanna Aguirre CRNP) Physical Exam Notes: General: no distress Eyes: normal inspection, PERLL Respiratory: chest non tender, clear to auscultation, normal breath sounds, no respiratory distress, no accessory muscle use Cardiac: regular rate and rhythm, no rub or gallop, no murmur, no edema, no jvd GI/: active bowel sounds, no abd pain or tenderness, soft, non distended Extremities: normal range of motion, normal strength, non tender Neuro/Psych: alert and oriented x 3, normal mood and affect Skin: normal color, dry (Tamanna Aguirre CRNP) Laboratory Results Last 24 Hours Test 05/30/18 09:17 White Blood Count 6.72 K/uL Red Blood Count 3.61 M/uL Hemoglobin 10.3 g/dL Hematocrit 33.7 % Mean Corpuscular Volume 93.4 fL Mean Corpuscular Hemoglobin 28.5 pg Mean Corpuscular Hemoglobin Concent 30.6 g/dl RDW Standard Deviation 59.1 fL RDW Coefficient of Variation 17.2 % Platelet Count 214 K/uL Mean Platelet Volume 9.8 fL (Tamanna Aguirre CRNP) Assessment and Plan Ms. Madison is an 88 y/o female here with sepsis secondary to UTI Sepsis secondary to UTI - lactic acid 2.37 and trended down. -Urine culture with girard sensitive E. Coli - changed patient to po cefuroxime from IV cefepime -Blood cultures ngtd -discontinue fluids Hyperkalemia - resolved - dc/d K in IVF - Kayexalate given 15 mg x 2 doses - prp pending CKD IV, low urine output - Creat down to 1.84 from 2.37 - baseline around 2 - discontinue fluids - prp pending QT prolongation - resolved, QTc wnl today - no dysrhythmia on tele - running NSR - daily EKG, discontinued medications that can prolong QT - prp am to monitor electrolytes Cyst in left adnexum on CT--stable -Pt has h/o left ovary cyst, per outpt records at least since 2014 CAD, h/o [place], HTN--stable -Continue ASA -Pt 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 She has refused statins - patient has loop recorder Anemia of chronic disease - fecal occult negative, likely dilutional drop in hgb Diarrhea - c.diff negative. Patient reports history of diarrhea over past few months. Anxiety -Continue doxepin 10 mg PO BID - low dose lorazepam prn for insomnia/anxiety 0.25 mg po Hypothyroidism -Continue Synthroid 50 mcg PO qd Peripheral edema -Hold torsemide for now DVT prophylaxis -Heparin 5000 units SC q12h Code Status -Level V, DO NOT RESUSCITATE Dispo: patient refusing rehab, family discussed with case management. Likely can dc home tomorrow (Tamanna Aguirre ., LION) ASSISTANT [employer] MANAGER Physician Supervision Note: I discussed with Tamanna Aguirre NP and agree with findings and plan as documented in the note. Any exceptions or clarifications are listed here: None Documented By: Sherwin Ding (Sherwin Ding M.D.)
[2018-05-30 12:50] LABS: CALCIUM 7.3 mg/dl (8.5-10.1); CREATININE 1.66 mg/dl (0.60-1.20); POTASSIUM 4.1 mmol/L (3.5-5.1)
[2018-05-30 15:26] VITALS: BP 122/63; PULSE 91; TEMP 37; O2SAT 97
[2018-05-30 16:00] VITALS: O2SAT 97
[2018-05-30] MEDS ORDERED: SODIUM CHLORIDE 0.9% 1000ML 1,000 ML IV SCH (16:30)
[2018-05-30] MEDS: ALBUTEROL HFA 8 GM INHALER INH PRN ×2 (17:36→23:18)
[2018-05-30] MEDS: ACETAMINOPHEN 325 MG TAB PO PRN (17:44)
[2018-05-30] MEDS: CHOLECALCIFEROL 1000 INTER.UNIT TAB PO SCH (20:44)
[2018-05-30] MEDS: CEROVITE ADV FORMULA TAB PO SCH (20:44)
[2018-05-31 00:04] VITALS: BP 127/48; PULSE 96; TEMP 36.5; O2SAT 96
[2018-05-31 00:18] VITALS: BP 132/74
[2018-05-31] MEDS: LEVOTHYROXINE 50 MCG TAB PO SCH (06:38)
[2018-05-31 07:27] VITALS: BP 133/69
[2018-05-31] MEDS: DOXEPIN HCL 10 MG CAP PO SCH ×2 (07:30→21:03)
[2018-05-31] MEDS: POTASSIUM CHLORIDE 10 MEQ TABCR PO SCH (07:30)
[2018-05-31] MEDS: SACCHAROMYCES BOUL (FLORASTOR) 250 MG CAP PO SCH (07:30)
[2018-05-31] MEDS: ASPIRIN 81 MG ECTAB PO SCH (07:30)
[2018-05-31 07:34] VITALS: PULSE 86; TEMP 36.3; O2SAT 97
[2018-05-31] MEDS: MoRPHine SULFATE IR 15 MG TAB (IMMEDIATE RELEASE) PO SCH ×2 (07:35→21:02)
[2018-05-31] MEDS: HEPARIN SOD 5000 UNIT/0.5 ML CARP SQ SCH ×2 (07:49→21:12)
[2018-05-31 08:47] LABS: MEAN CELL VOLUME 90.7 fL (80-100); MEAN CORPUSCULAR HEMOGLOBIN 28.3 pg (25-34); MEAN CORPUSCULAR HGB CONC 31.3 g/dl (32-36); MEAN PLATELET VOLUME 10.2 fL (7.4-10.4); PLATELET COUNT 201 K/uL (130-400); RED CELL DISTRIBUTION WIDTH CV 17.3 % (11.5-14.5); RED CELL DISTRIBUTION WIDTH SD 57.1 fL (36.4-46.3); WHITE BLOOD COUNT 7.31 K/uL (4.8-10.8)
[2018-05-31 09:12] LABS: CALCIUM 7.7 mg/dl (8.5-10.1); CREATININE 1.47 mg/dl (0.60-1.20); POTASSIUM 5.4 mmol/L (3.5-5.1)
[2018-05-31] MEDS ORDERED: SODIUM POLYST. SULF SUSP 15G/60ML PO STA (10:10)
[2018-05-31] MEDS: CEFUROXIME AXETIL 500 MG TAB PO SCH (11:12)
[2018-05-31] MEDS ORDERED: CEFU1TAB35 PO (12:56)
--- NOTE | 2018-05-31 13:01 | Discharge Instructions ---
Discharge Instructions Date of Service May 31, 2018. Admission Reason for Admission: Sepsis, Urinary Tract Infection Discharge Discharge Diagnosis / Problem: sepsis, urinary tract infection Discharge Goals Goal(s): Improve disease control Activity Recommendations Activity Limitations: resume your previous activity Exercise/Sports Limitations: gradually increase as tolerated . Instructions / Follow-Up Instructions / Follow-Up Please follow up with your primary care provider within about a week. Please have your blood drawn on Monday, results will go to your primary care provider. You are returning home with home health. They will contact you to set up a time to come to your home. Current Hospital Diet Patient's current hospital diet: AHA Diet (Heart Healthy) Discharge Diet Recommended Diet: AHA Diet (Heart Healthy) Procedures Procedures Performed: Abdominal CT Renal ultrasound Chest X ray Pending Studies Studies pending at discharge: no Medical Emergencies . Who to Call and When: Medical Emergencies: If at any time you feel your situation is an emergency, please call 911 immediately. . Non-Emergent Contact Non-Emergency issues call your: Primary Care Provider Call Non-Emergent contact if: you have a fever, you have any medication questions . . "Provider Documentation" section prepared by Tamanna Aguirre. .
[2018-05-31] MEDS: ALBUTEROL HFA 8 GM INHALER INH PRN ×2 (15:20→21:20)
[2018-05-31 15:31] LABS: CALCIUM 8.1 mg/dl (8.5-10.1); CREATININE 1.63 mg/dl (0.60-1.20); POTASSIUM 5.7 mmol/L (3.5-5.1)
[2018-05-31] MEDS ORDERED: SODIUM POLYST. SULF SUSP 15G/60ML PO ONE (15:45)
--- NOTE | 2018-05-31 15:46 | Hospitalist Progress Note ---
Hospitalist Progress Note Date of Service May 31, 2018. Subjective Pt evaluation today including: conversation w/ patient, physical exam, chart review, lab review, review of inpatient medication list Voiding: no voiding problems Ms. Madison is working with physical therapy when I saw her. She is somewhat fatigued and painful but otherwise without complaints. ROS Constitutional: no chills, aches, sweats or fever Respiratory: no sob,cough, sputum, or wheezing Cardiac: no chest pain, palpitations, edema, orthopnea or lightheadedness GI: no abdominal pain, nausea, vomiting, diarrhea or constipation : no dysuria or hesitancy Extremities: no joint pain or weakness Skin: no rash All other systems reviewed and negative Medications Medications Administered Medications (Trade) Dose Ordered Sig/Zack Route Start Time Stop Time Status Last Admin Dose Admin Vancomycin HCl 270 ml @ 125 mls/hr NOW STAT IV 05/27/18 07:40 05/27/18 09:49 DC 05/27/18 08:50 125 MLS/HR Acetaminophen (Tylenol Tab) 1,000 mg NOW STAT PO 05/27/18 08:27 05/27/18 08:29 DC 05/27/18 08:50 1,000 MG Sodium Chloride 1,000 ml @ 100 mls/hr Q10H STAT IV 05/27/18 08:56 05/27/18 11:58 DC 05/27/18 09:32 100 MLS/HR Heparin Sodium (Porcine) (Heparin Sq 5000 Unit/0.5ml) 5,000 unit Q12 SQ 05/27/18 21:00 06/26/18 20:59 05/31/18 07:49 5,000 UNIT Potassium Chloride/Sodium Chloride 1,000 ml @ 80 mls/hr [id number] IV 05/27/18 12:15 05/28/18 08:17 DC 05/28/18 00:22 80 MLS/HR Acetaminophen (Tylenol Tab) 650 mg Q4H PRN PO 05/27/18 10:30 06/26/18 10:29 05/30/18 17:44 650 MG Ceftriaxone Sodium 1 gm/ Dextrose 50 ml @ 100 mls/hr Q24H IV 05/27/18 12:00 05/28/18 08:39 DC 05/27/18 12:42 100 MLS/HR Albuterol (Ventolin Hfa Inhaler) 2 puffs Q6H PRN INH 05/27/18 11:00 06/26/18 10:59 05/31/18 15:20 2 PUFFS Aspirin (Ecotrin Tab) 81 mg QAM PO 05/28/18 09:00 06/27/18 08:59 05/31/18 07:30 81 MG Cholecalciferol (Vitamin D Tab) 1,000 inter.unit QPM PO 05/27/18 21:00 06/26/18 20:59 05/30/18 20:44 1,000 INTER.UNIT Doxepin HCl (Sinequan Cap) 10 mg AMHS PO 05/27/18 21:00 06/26/18 20:59 05/31/18 07:30 10 MG Levothyroxine Sodium (Synthroid Tab) 50 mcg DAILYBB PO 05/28/18 06:00 06/27/18 05:59 05/31/18 06:38 50 MCG Morphine Sulfate (MoRPHine SULFATE IR TAB) 30 mg BID PO 05/27/18 21:00 06/10/18 20:59 05/31/18 07:35 30 MG Multivitamins/ Minerals (Multivitamin W/ Minerals Tab) 1 tab QPM PO 05/27/18 21:00 06/26/18 20:59 05/30/18 20:44 1 TAB Potassium Chloride (Klor-Con M10) 10 meq QAM PO 05/28/18 09:00 06/27/18 08:59 05/31/18 07:30 10 MEQ Saccharomyces Boulardii (Florastor Cap) 250 mg DAILY PO 05/28/18 09:00 06/27/18 08:59 05/31/18 07:30 250 MG Prednisone (PredniSONE TAB) 5 mg QAM PO 05/28/18 09:00 06/27/18 08:59 05/31/18 07:30 5 MG Ondansetron HCl (Zofran Inj) 4 mg Q4H PRN IV 05/27/18 20:00 05/28/18 08:15 DC 05/28/18 04:11 4 MG Sodium Chloride 250 ml @ 999 mls/hr TODAY@0645 ONCE IV 05/28/18 06:45 05/28/18 07:00 DC 05/28/18 07:14 999 MLS/HR Sodium Chloride 1,000 ml @ 100 mls/hr Q10H IV 05/28/18 08:15 05/30/18 12:04 DC 05/30/18 06:33 100 MLS/HR Sodium Polystyrene Sulfonate (Kayexalate Susp) 15 gm NOW STAT PO 05/28/18 08:31 05/28/18 08:32 DC 05/28/18 10:22 15 GM Cefepime HCl 1000 mg/Syringe 11 ml @ 5.5 mls/min Q24H IV 05/28/18 11:00 05/29/18 10:12 DC 05/28/18 10:22 5.5 MLS/MIN Lorazepam (Ativan Tab) 0.25 mg BID PRN PO 05/28/18 12:15 06/27/18 12:14 05/30/18 23:24 0.25 MG Sodium Chloride 250 ml @ 250 mls/hr Q1H IV 05/28/18 15:15 05/28/18 16:14 DC 05/28/18 15:45 250 MLS/HR Sodium Polystyrene Sulfonate (Kayexalate Susp) 15 gm NOW STAT PO 05/28/18 17:21 05/28/18 17:28 DC 05/28/18 17:55 15 GM Cefuroxime Axetil (Ceftin Tab) 500 mg Q24H PO 05/29/18 12:00 06/08/18 11:59 05/31/18 11:12 500 MG Lorazepam 0.25 mg/ Syringe 0.25 ml @ 1 mls/min NOW ONCE IV 05/29/18 15:30 05/29/18 15:31 DC 05/29/18 16:39 1 MLS/MIN Sodium Chloride 250 ml @ 999 mls/hr Q16M ONCE IV 05/29/18 18:45 05/29/18 19:00 DC 05/29/18 18:47 999 MLS/HR Sodium Chloride 1,000 ml @ 100 mls/hr Q10H IV 05/30/18 16:30 05/30/18 18:00 DC 05/30/18 16:20 100 MLS/HR Sodium Polystyrene Sulfonate (Kayexalate Susp) 15 gm NOW STAT PO 05/31/18 10:10 05/31/18 10:13 DC 05/31/18 11:12 15 GM Objective Vital Signs Date Time Temp Pulse Resp B/P (MAP) Pulse Ox O2 Delivery O2 Flow Rate FiO2 05/31/18 08:30 Room Air 05/31/18 07:34 36.3 86 20 97 05/31/18 07:27 133/69 (90) 05/31/18 00:18 132/74 (93) 05/31/18 00:04 36.5 96 16 127/48 (74) 96 Room Air 05/31/18 00:00 Room Air 05/30/18 16:00 97 Room Air Physical Exam Notes: General: no distress Eyes: normal inspection, PERLL Respiratory: chest non tender, clear to auscultation, normal breath sounds, no respiratory distress, no accessory muscle use Cardiac: regular rate and rhythm, no rub or gallop, no murmur, no edema, no jvd GI/: active bowel sounds, no abd pain or tenderness, soft, non distended Extremities: normal range of motion, normal strength, non tender Neuro/Psych: alert and oriented x 3, normal mood and affect Skin: normal color, dry Laboratory Results Last 24 Hours Test 05/31/18 08:18 05/31/18 15:02 White Blood Count 7.31 K/uL Red Blood Count 3.53 M/uL Hemoglobin 10.0 g/dL Hematocrit 32.0 % Mean Corpuscular Volume 90.7 fL Mean Corpuscular Hemoglobin 28.3 pg Mean Corpuscular Hemoglobin Concent 31.3 g/dl RDW Standard Deviation 57.1 fL RDW Coefficient of Variation 17.3 % Platelet Count 201 K/uL Mean Platelet Volume 10.2 fL Sodium Level 140 mmol/L 140 mmol/L Potassium Level 5.4 mmol/L 5.7 mmol/L Chloride Level 113 mmol/L 110 mmol/L Carbon Dioxide Level 20 mmol/L 25 mmol/L Anion Gap 7.0 mmol/L 5.0 mmol/L Blood Urea Nitrogen 20 mg/dl 18 mg/dl Creatinine 1.47 mg/dl 1.63 mg/dl Est Creatinine Clear Calc Drug Dose 22.5 ml/min 20.3 ml/min Estimated GFR () 36.6 32.3 Estimated GFR (Non- 31.5 27.8 BUN/Creatinine Ratio 13.5 10.9 Random Glucose 83 mg/dl 149 mg/dl Calcium Level 7.7 mg/dl 8.1 mg/dl Chemistry Specimen Hemolysis Assessment and Plan Ms. Madison is an 88 y/o female here with sepsis secondary to UTI Sepsis secondary to UTI - lactic acid 2.37 and trended down. -Urine culture with girard sensitive E. Coli - changed patient to po cefuroxime from IV cefepime -Blood cultures ngtd -discontinue fluids Hyperkalemia - K 5.7 - restart torsemide and give kayexalate x 2 doses. 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 She has refused statins - patient has loop recorder Anemia of chronic disease - fecal occult negative, likely dilutional drop in hgb Diarrhea - c.diff negative. Patient reports history of diarrhea over past few months. Anxiety -Continue doxepin 10 mg PO BID - low dose lorazepam prn for insomnia/anxiety 0.25 mg po Hypothyroidism -Continue Synthroid 50 mcg PO qd Peripheral edema - restart torsemide DVT prophylaxis -Heparin 5000 units SC q12h Code Status -Level V, DO NOT RESUSCITATE Dispo: patient refusing rehab, family discussed with case management. Likely can dc home tomorrow
[2018-05-31 16:00] VITALS: O2SAT 96
[2018-05-31] MEDS ORDERED: TORSEMIDE 20 MG TAB PO ONE (16:00)
--- NOTE | 2018-05-31 17:32 | DIAGNOSTIC IMAGING REPORT ---
LEFT UPPER EXTREMITY VENOUS DOPPLER HISTORY: left arm edema x 2 days COMPARISON STUDY: None. FINDINGS: The left internal jugular vein is patent. There is normal flow within the left subclavian vein. There is normal flow and compressibility within the left axillary, basilic, brachial, radial, ulnar veins. The left cephalic vein was not visualized. IMPRESSION: No DVT within the left upper extremity. Electronically signed by: Segundo Silveira M.D. 05/31/2018 5:30 PM Dictated Date/Time: 05/31/2018 5:30 PM
[2018-05-31] MEDS: ALBUT/IPRATROP 3MG/0.5MG NEB 3 ML VIAL INH SCH (20:00)
[2018-05-31] MEDS: TORSEMIDE 20 MG TAB PO SCH (21:02)
[2018-05-31] MEDS: CEROVITE ADV FORMULA TAB PO SCH (21:03)
[2018-05-31] MEDS: CHOLECALCIFEROL 1000 INTER.UNIT TAB PO SCH (21:04)
[2018-06-01 00:08] VITALS: BP 145/62; PULSE 104; TEMP 37.2; O2SAT 97
[2018-06-01] MEDS: LORAZEPAM 0.5 MG TAB PO PRN ×3 (01:04→17:43)
[2018-06-01] MEDS: LEVOTHYROXINE 50 MCG TAB PO SCH (06:40)
[2018-06-01 07:17] VITALS: BP 127/72; PULSE 97; TEMP 36.7; O2SAT 97
[2018-06-01] MEDS: ALBUT/IPRATROP 3MG/0.5MG NEB 3 ML VIAL INH SCH ×2 (07:39→12:00)
[2018-06-01] MEDS: ALBUTEROL HFA 8 GM INHALER INH PRN ×2 (07:39→17:28)
[2018-06-01] MEDS: MoRPHine SULFATE IR 15 MG TAB (IMMEDIATE RELEASE) PO SCH ×2 (07:55→20:52)
[2018-06-01] MEDS: DOXEPIN HCL 10 MG CAP PO SCH ×2 (07:56→20:51)
[2018-06-01] MEDS: TORSEMIDE 20 MG TAB PO SCH ×2 (07:56→20:50)
[2018-06-01] MEDS: SACCHAROMYCES BOUL (FLORASTOR) 250 MG CAP PO SCH (07:57)
[2018-06-01] MEDS: ASPIRIN 81 MG ECTAB PO SCH (07:57)
[2018-06-01] MEDS: HEPARIN SOD 5000 UNIT/0.5 ML CARP SQ SCH ×2 (08:04→20:54)
--- NOTE | 2018-06-01 09:36 | DIAGNOSTIC IMAGING REPORT ---
CHEST ONE VIEW PORTABLE HISTORY: Short of breath. COMPARISON: Chest 05/27/2018. FINDINGS: No pneumothorax. There are small bilateral pleural effusions and bibasilar densities. The heart remains mildly enlarged. No evidence for pulmonary edema. IMPRESSION: Small bilateral pleural effusions and bibasilar airspace opacities. This could represent atelectasis or pneumonia. Electronically signed by: Segundo Silveira M.D. 06/01/2018 9:34 AM Dictated Date/Time: 06/01/2018 9:32 AM
[2018-06-01 09:43] LABS: CALCIUM 8.8 mg/dl (8.5-10.1); CREATININE 1.53 mg/dl (0.60-1.20); POTASSIUM 4.1 mmol/L (3.5-5.1)
[2018-06-01] MEDS ORDERED: FUROSEMIDE INJ 40 MG in SYRINGE 0 ML IV ONE (12:00)
[2018-06-01 12:42] VITALS: BP 134/76; PULSE 109
[2018-06-01] MEDS: CEFUROXIME AXETIL 500 MG TAB PO SCH (12:44)
[2018-06-01] MEDS ORDERED: NURSING VERBAL MED ORDER ONE (13:45)
--- NOTE | 2018-06-01 15:19 | Hospitalist Progress Note ---
Hospitalist Progress Note Date of Service Jun 01, 2018. (Tamanna Aguirre .LION) Subjective Pt evaluation today including: conversation w/ patient, physical exam, chart review, lab review, review of inpatient medication list Voiding: no voiding problems Ms. Marcus is very emotional today, she is tearful and concerned about being away from home. She is very short of breath when she gets upset. She refuses nebulizers ROS Constitutional: no chills, aches, sweats or fever Respiratory: see HPI Cardiac: no chest pain, palpitations, edema, orthopnea or lightheadedness GI: no abdominal pain, nausea, vomiting, diarrhea or constipation : no dysuria or hesitancy Extremities: no joint pain or weakness Skin: no rash All other systems reviewed and negative (Tamanna Aguirre CRNP) Medications Medications Administered Medications (Trade) Dose Ordered Sig/Zack Route Start Time Stop Time Status Last Admin Dose Admin Vancomycin HCl 270 ml @ 125 mls/hr NOW STAT IV 05/27/18 07:40 05/27/18 09:49 DC 05/27/18 08:50 125 MLS/HR Acetaminophen (Tylenol Tab) 1,000 mg NOW STAT PO 05/27/18 08:27 05/27/18 08:29 DC 05/27/18 08:50 1,000 MG Sodium Chloride 1,000 ml @ 100 mls/hr Q10H STAT IV 05/27/18 08:56 05/27/18 11:58 DC 05/27/18 09:32 100 MLS/HR Heparin Sodium (Porcine) (Heparin Sq 5000 Unit/0.5ml) 5,000 unit Q12 SQ 05/27/18 21:00 06/26/18 20:59 06/01/18 08:04 5,000 UNIT Potassium Chloride/Sodium Chloride 1,000 ml @ 80 mls/hr [id number] IV 05/27/18 12:15 05/28/18 08:17 DC 05/28/18 00:22 80 MLS/HR Acetaminophen (Tylenol Tab) 650 mg Q4H PRN PO 05/27/18 10:30 06/26/18 10:29 05/30/18 17:44 650 MG Ceftriaxone Sodium 1 gm/ Dextrose 50 ml @ 100 mls/hr Q24H IV 05/27/18 12:00 05/28/18 08:39 DC 05/27/18 12:42 100 MLS/HR Albuterol (Ventolin Hfa Inhaler) 2 puffs Q6H PRN INH 05/27/18 11:00 06/26/18 10:59 06/01/18 07:39 2 PUFFS Aspirin (Ecotrin Tab) 81 mg QAM PO 05/28/18 09:00 06/27/18 08:59 06/01/18 07:57 81 MG Cholecalciferol (Vitamin D Tab) 1,000 inter.unit QPM PO 05/27/18 21:00 06/26/18 20:59 05/31/18 21:04 1,000 INTER.UNIT Doxepin HCl (Sinequan Cap) 10 mg AMHS PO 05/27/18 21:00 06/26/18 20:59 06/01/18 07:56 10 MG Levothyroxine Sodium (Synthroid Tab) 50 mcg DAILYBB PO 05/28/18 06:00 06/27/18 05:59 06/01/18 06:40 50 MCG Morphine Sulfate (MoRPHine SULFATE IR TAB) 30 mg BID PO 05/27/18 21:00 06/10/18 20:59 06/01/18 07:55 30 MG Multivitamins/ Minerals (Multivitamin W/ Minerals Tab) 1 tab QPM PO 05/27/18 21:00 06/26/18 20:59 05/31/18 21:03 1 TAB Potassium Chloride (Klor-Con M10) 10 meq QAM PO 05/28/18 09:00 06/27/18 08:59 Future Hold 05/31/18 07:30 10 MEQ Saccharomyces Boulardii (Florastor Cap) 250 mg DAILY PO 05/28/18 09:00 06/27/18 08:59 06/01/18 07:57 250 MG Prednisone (PredniSONE TAB) 5 mg QAM PO 05/28/18 09:00 06/27/18 08:59 06/01/18 09:31 5 MG Ondansetron HCl (Zofran Inj) 4 mg Q4H PRN IV 05/27/18 20:00 05/28/18 08:15 DC 05/28/18 04:11 4 MG Sodium Chloride 250 ml @ 999 mls/hr TODAY@0645 ONCE IV 05/28/18 06:45 05/28/18 07:00 DC 05/28/18 07:14 999 MLS/HR Sodium Chloride 1,000 ml @ 100 mls/hr Q10H IV 05/28/18 08:15 05/30/18 12:04 DC 05/30/18 06:33 100 MLS/HR Sodium Polystyrene Sulfonate (Kayexalate Susp) 15 gm NOW STAT PO 05/28/18 08:31 05/28/18 08:32 DC 05/28/18 10:22 15 GM Cefepime HCl 1000 mg/Syringe 11 ml @ 5.5 mls/min Q24H IV 05/28/18 11:00 05/29/18 10:12 DC 05/28/18 10:22 5.5 MLS/MIN Lorazepam (Ativan Tab) 0.25 mg BID PRN PO 05/28/18 12:15 06/27/18 12:14 06/01/18 07:53 0.25 MG Sodium Chloride 250 ml @ 250 mls/hr Q1H IV 05/28/18 15:15 05/28/18 16:14 DC 05/28/18 15:45 250 MLS/HR Sodium Polystyrene Sulfonate (Kayexalate Susp) 15 gm NOW STAT PO 05/28/18 17:21 05/28/18 17:28 DC 05/28/18 17:55 15 GM Cefuroxime Axetil (Ceftin Tab) 500 mg Q24H PO 05/29/18 12:00 06/08/18 11:59 06/01/18 12:44 500 MG Lorazepam 0.25 mg/ Syringe 0.25 ml @ 1 mls/min NOW ONCE IV 05/29/18 15:30 05/29/18 15:31 DC 05/29/18 16:39 1 MLS/MIN Sodium Chloride 250 ml @ 999 mls/hr Q16M ONCE IV 05/29/18 18:45 05/29/18 19:00 DC 05/29/18 18:47 999 MLS/HR Sodium Chloride 1,000 ml @ 100 mls/hr Q10H IV 05/30/18 16:30 05/30/18 18:00 DC 05/30/18 16:20 100 MLS/HR Sodium Polystyrene Sulfonate (Kayexalate Susp) 15 gm NOW STAT PO 05/31/18 10:10 05/31/18 10:13 DC 05/31/18 11:12 15 GM Torsemide (Demadex Tab) 20 mg BID PO 05/31/18 20:00 06/30/18 19:59 06/01/18 07:56 20 MG Torsemide (Demadex Tab) 20 mg 1600 ONCE PO 05/31/18 16:00 05/31/18 16:01 DC 05/31/18 16:05 20 MG Sodium Polystyrene Sulfonate (Kayexalate Susp) 15 gm 1545 ONCE PO 05/31/18 15:45 05/31/18 15:46 DC 05/31/18 16:04 15 GM Furosemide 40 mg/ Syringe 4 ml @ 4 mls/min ONE ONCE IV 06/01/18 12:00 06/01/18 12:01 DC 06/01/18 12:44 4 MLS/MIN (Tamanna Aguirre CRNP) Objective Vital Signs Date Time Temp Pulse Resp B/P (MAP) Pulse Ox O2 Delivery O2 Flow Rate FiO2 06/01/18 12:42 109 134/76 (95) 06/01/18 07:17 36.7 97 18 127/72 (90) 97 Room Air 06/01/18 00:08 37.2 104 20 145/62 (89) 97 Room Air 06/01/18 00:00 Room Air 05/31/18 16:00 96 Room Air (Tamanna Aguirre CRNP) Physical Exam Notes: General: emotional, crying, very anxious Eyes: normal inspection, PERLL Respiratory: chest non tender, faint expiratory wheezes bilaterally, no accessory muscle use Cardiac: regular rate and rhythm, no rub or gallop, no murmur, no edema, no jvd GI/: active bowel sounds, no abd pain or tenderness, soft, non distended Extremities: normal range of motion, normal strength, non tender Neuro/Psych: alert and oriented x 3, normal mood and affect Skin: normal color, dry (Tamanna Aguirre CRNP) Laboratory Results Last 24 Hours Test 05/31/18 15:02 06/01/18 08:50 06/01/18 10:01 Sodium Level 140 mmol/L 141 mmol/L Potassium Level 5.7 mmol/L 4.1 mmol/L Chloride Level 110 mmol/L 107 mmol/L Carbon Dioxide Level 25 mmol/L 27 mmol/L Anion Gap 5.0 mmol/L 7.0 mmol/L Blood Urea Nitrogen 18 mg/dl 17 mg/dl Creatinine 1.63 mg/dl 1.53 mg/dl Est Creatinine Clear Calc Drug Dose 20.3 ml/min 21.6 ml/min Estimated GFR () 32.3 34.8 Estimated GFR (Non- 27.8 30.1 BUN/Creatinine Ratio 10.9 11.2 Random Glucose 149 mg/dl 114 mg/dl Calcium Level 8.1 mg/dl 8.8 mg/dl Procalcitonin 1.36 ng/ml (Tamanna Aguirre ., LION) Assessment and Plan Ms. Madison is an 88 y/o female here with sepsis secondary to UTI Sepsis secondary to UTI - lactic acid 2.37 and trended down. -Urine culture with girard sensitive E. Coli - changed patient to po cefuroxime from IV cefepime -Blood cultures ngtd -discontinued fluids Hyperkalemia - resolved CKD IV, low urine output - Creat stable at baseline Dyspnea, anxiety - CXR with some atelectasis and pulm effusions - 40 mg IV lasix x1 - may be an element of fluid overload due to IV fluid administration and CKD as patient is up 7 liters and has had low output - refuses nebs - continue prn inhalers - seroquel 25 mg po hs for sleep tonight, continue bid prn ativan and home doxepin QT prolongation - resolved, QTc wnl today - no dysrhythmia on tele - running NSR - daily EKG, discontinued medications that can prolong QT - prp am to monitor electrolytes Cyst in left adnexum on CT--stable -Pt has h/o left ovary cyst, per outpt records at least since 2014 CAD, h/o MT, HTN--stable -Continue ASA -Pt 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 She has refused statins - patient has loop recorder Anemia of chronic disease - fecal occult negative, likely dilutional drop in hgb Diarrhea - c.diff negative. Patient reports history of diarrhea over past few months. Hypothyroidism -Continue Synthroid 50 mcg PO qd Peripheral edema - restart torsemide DVT prophylaxis -Heparin 5000 units SC q12h Code Status -Level V, DO NOT RESUSCITATE Dispo: patient refusing rehab, family discussed with case management. Likely can dc home tomorrow (Tamanna Aguirre ., LION) LIFE UNDERWRITER Physician Supervision Note: I interviewed and examined the patient. Discussed with Tamanna Aguirre LIFE UNDERWRITER and agree with findings and plan as documented in the note. Any exceptions or clarifications are listed here: None Patient feels uncomfortable today she is emotionally distraught that she is to go to stay another day she appears to be mildly short of breath her vital signs are stable her exam is no overt with heart failure though she did receive interviewed last few days patient is also sleep deprived and having some possible delirium will pursue institution of intravenous diuretics and try to have good restful night sleep to see if that improves her mental state Documented By: Sherwin Ding (Sherwin Ding M.D.)
[2018-06-01 16:00] VITALS: BP 126/70; PULSE 103; TEMP 37; O2SAT 96
[2018-06-01] MEDS: ACETAMINOPHEN 325 MG TAB PO PRN (17:43)
[2018-06-01] MEDS: CEROVITE ADV FORMULA TAB PO SCH (20:51)
[2018-06-01] MEDS: CHOLECALCIFEROL 1000 INTER.UNIT TAB PO SCH (20:51)
[2018-06-01] MEDS ORDERED: QUETIAPINE FUMARATE 25 MG TAB PO SCH (22:00)
[2018-06-01 23:54] VITALS: BP 116/69; PULSE 107; TEMP 36.5; O2SAT 97
[2018-06-02] MEDS: LEVOTHYROXINE 50 MCG TAB PO SCH (06:20)
[2018-06-02 07:44] VITALS: BP 132/69; PULSE 90; TEMP 36.6; O2SAT 95
[2018-06-02 09:11] LABS: CALCIUM 8.6 mg/dl (8.5-10.1); CREATININE 1.46 mg/dl (0.60-1.20); POTASSIUM 4.2 mmol/L (3.5-5.1)
[2018-06-02] MEDS: ALBUTEROL HFA 8 GM INHALER INH PRN (09:19)
[2018-06-02] MEDS: SACCHAROMYCES BOUL (FLORASTOR) 250 MG CAP PO SCH (09:20)
[2018-06-02] MEDS: DOXEPIN HCL 10 MG CAP PO SCH (09:21)
[2018-06-02] MEDS: ASPIRIN 81 MG ECTAB PO SCH (09:21)
[2018-06-02] MEDS: TORSEMIDE 20 MG TAB PO SCH (09:21)
[2018-06-02] MEDS: MoRPHine SULFATE IR 15 MG TAB (IMMEDIATE RELEASE) PO SCH (09:23)
[2018-06-02] MEDS: LORAZEPAM 0.5 MG TAB PO PRN (09:24)
[2018-06-02] MEDS: HEPARIN SOD 5000 UNIT/0.5 ML CARP SQ SCH (09:44)
--- NOTE | 2018-06-02 09:46 | Discharge Summary ---
Discharge Summary Date of Service May 31, 2018. Discharge Summary Admission Date: May 27, 2018 at 10:36 Discharge Date: Jun 02, 2018 Discharge Disposition: Home with services Principal Diagnosis: UTI, sepsis Problems/Secondary Diagnoses: Hyperkalemia, CKD IV, low urine output, QT prolongation, Cyst in left adnexum on CT, CAD, h/o NH, HTN, Anemia of chronic disease, Diarrhea, Anxiety, Hypothyroidism, Peripheral edema Immunizations: Have You Had Influenza Vaccine: No History of Tetanus Vaccine?: Yes Tetanus Immunization Date: Apr 06, 2006 History of Pneumococcal: No History of Hepatitis B Vaccine: Unknown Procedures: CHEST ONE VIEW PORTABLE HISTORY: Short of breath. COMPARISON: Chest 05/27/2018. FINDINGS: No pneumothorax. There are small bilateral pleural effusions and bibasilar densities. The heart remains mildly enlarged. No evidence for pulmonary edema. IMPRESSION: Small bilateral pleural effusions and bibasilar airspace opacities. This could represent atelectasis or pneumonia. RENAL ULTRASOUND CLINICAL HISTORY: Renal failure. Low urine output. COMPARISON STUDY: CT of the abdomen and pelvis May 27, 2018. TECHNIQUE: Sonography of the kidneys and the urinary bladder was performed. FINDINGS: The right kidney measures 7.9 cm in maximal dimension and the left measures 7.6 cm. There is moderate renal atrophy and increased renal echogenicity. There is no hydronephrosis. No renal calculi or masses are identified. Bladder is decompressed, containing a Alexander balloon. IMPRESSION: 1. No hydronephrosis. 2. Increased renal echogenicity consistent with medical renal disease. Moderate renal atrophy. Electronically signed by: Frank Velez M.D. 05/28/2018 3:45 PM ABDOMEN AND PELVIS CT WITHOUT CONTRAST CT DOSE: 286.13 mGy.cm HISTORY: Acute sepsis with generalized abdominal pain sepsis, abd pain TECHNIQUE: Multiaxial CT images of the abdomen and pelvis were performed without contrast. A dose lowering technique was utilized adhering to the principles of ALARA. COMPARISON STUDY: CT abdomen and pelvis 05/12/2018. FINDINGS: Trace right pleural effusion. Subsegmental dependent bibasilar opacities suggest atelectasis. No pneumatosis or pneumoperitoneum. The study is mildly motion degraded. Imaged inferior cardiac chambers are mildly enlarged. Coronary arterial calcifications are noted. Prior cholecystectomy. Calcified granulomata about the liver and spleen. There is no intrahepatic biliary ductal dilation identified. There is a 10 mm cystic focus of the pancreatic body suggesting a small sidebranch IPMN. The unenhanced pancreas is atrophic and otherwise grossly unremarkable. Adrenal glands are unremarkable. Mild atrophy about the bilateral kidneys. No calculi or obstructive uropathy. Alexander catheter is noted within a decompressed urinary bladder lumen. Foci of air noted within the bladder. There is a multilobulated cystic lesion about the left adnexum, 3.6 x 3.1 cm on image 296 series 3. Right adnexum is unremarkable. Mild atherosclerosis of the aorta without aneurysm. No pathologically enlarged lymph nodes identified. Fluid is noted within the distal esophagus. No bowel obstruction or focal bowel wall thickening. Large stool ball is noted within the rectum. Moderate stool volume is seen throughout the majority of the colon. Colonic diverticulosis without diverticulitis. Prior appendectomy. Moderate sized fat filled periumbilical hernia, diastases 2.2 cm. Soft tissues and breast parenchyma appear unremarkable. Degenerative changes of the pelvis, spine and hips. Severe multilevel facet arthropathy. No acute fracture identified. Chronic appearing anterolisthesis L4 on L5 and L5 on S1. IMPRESSION: 1. Constipation without bowel obstruction or focal bowel wall thickening. 2. Colonic diverticulosis without diverticulitis. 3. Septated cystic lesion about the left adnexum redemonstrated measuring up to 3.6 cm. 4. Moderate sized fat filled periumbilical hernia. 5. Prior granulomatous disease. 6. Additional findings as above. Electronically signed by: Marc Hernandes M.D. 05/27/2018 10:15 AM LEFT UPPER EXTREMITY VENOUS DOPPLER HISTORY: left arm edema x 2 days COMPARISON STUDY: None. FINDINGS: The left internal jugular vein is patent. There is normal flow within the left subclavian vein. There is normal flow and compressibility within the left axillary, basilic, brachial, radial, ulnar veins. The left cephalic vein was not visualized. IMPRESSION: No DVT within the left upper extremity. Electronically signed by: Segundo Silveira M.D. 05/31/2018 5:30 PM Consultations: Dr. Bojorquez from nephrology Medication Reconciliation Continued Medications: Albuterol Hfa (Ventolin Hfa) 200 Puffs/05822 Mcg Aers 2-4 PUFFS INH Q6H PRN for Shortness of Breath, #1 INHALER Aspirin (Aspirin Ec) 81 Mg Tab 81 MG PO QAM Cholecalciferol (Vitamin D 1000 Unit) 1,000 Unit Cap 1000 INTER.UNIT PO QPM, CAP Coconut Oil (Bulk) (Coconut Oil) 1 Oil Oil 1 APPLN TOP UD APPLY TO BACK DIRECTED Doxepin Hcl (Sinequan) 10 Mg Cap 10 MG PO AMHS Levothyroxine Sodium (Levothyroxine Sodium) 50 Mcg Tab 50 MCG PO QAM Morphine Sulfate (Morphine Sulfate Ir) 15 Mg Tab 2 TABS PO BID Multiple Vitamins W/ Minerals (Centrum) 1 Tab Tab 1 TAB PO QPM Polyethylene Glycol-Propylene (Systane) 1 Brittney Brittney 1 DROP OP QID PRN for Eye Irritation, ML Prednisone (Prednisone) 5 Mg Tab 5 MG PO QAM Probiotic Product (Align) 4 Mg Cap 4 MG PO DAILY Promethazine Hcl (Phenergan) 25 Mg Tab 25 MG PO Q6H PRN for Nausea, TAB Torsemide (Torsemide) 20 Mg Tab 20 MG PO BID Discontinued Medications: Potassium Chloride (Klor-Con Sprinkle) 10 Meq Cap 10 MEQ PO DAILY Discharge Exam ROS ROS Constitutional: no chills, aches, sweats or fever Respiratory: no sob,cough, sputum, or wheezing Cardiac: no chest pain, palpitations, edema, orthopnea or lightheadedness GI: no abdominal pain, nausea, vomiting, diarrhea or constipation : no dysuria or hesitancy Extremities: arthritis pain Skin: no rash All other systems reviewed and negative PE General: no distress Eyes: normal inspection, PERLL Respiratory: chest non tender, clear to auscultation, normal breath sounds, no respiratory distress, no accessory muscle use Cardiac: regular rate and rhythm, no rub or gallop, no murmur, no edema, no jvd GI/: active bowel sounds, no abd pain or tenderness, soft, non distended Extremities: normal range of motion, normal strength, non tender Neuro/Psych: alert and oriented x 3, normal mood and affect Skin: normal color, dry Hospital Course This is an 88 y/o female with a history of CAD, NH, HTN, Mobitz II AVB, anxiety , benign essential tremor, hypothyroidism, CKD stage IV, peripheral edema and GERD who presented to the ED on 05/27 with altered mental status and fever. The patient had been in her normal state of health but the morning of arrival, her daughters found her altered and less responsive than usual. They called EMS for further evaluation. Of note, the patient presented to [facility] earlier this month following a mechanical fall and was found to have Mobitz II AVB at that time. She is currently on a cardiac event monitor. Sepsis secondary to UTI - lactic acid 2.37 and trended down. -Urine culture with girard sensitive E. Coli - changed patient to po cefuroxime from IV cefepime, last day of abx 06/02 -Blood cultures ngtd Hyperkalemia - initially resolved with Kayexalate but was a little high again 05/31 so another dose was given and labs repeated later in the afternoon - repeat prp outpatient on Monday - hold potassium supplement until repeat labs on Monday CKD IV, low urine output - Creat down to 1.4 from 2.37 - baseline around 2 - given IVF QT prolongation - resolved, QTc wnl today - no dysrhythmia on tele - running NSR Dyspnea, anxiety - CXR with some atelectasis and pulm effusions - 40 mg IV lasix x1 - diuresed almost a liter and breathing better today - refuses nebs - continue prn inhalers - continue home doxepin - given very small dose of ativan during the day and seroquel for sleep inpatient - 2 step revealed patient requires 4L NC for ambulation Edema left arm secondary to IV infiltrate - I did send her for an upper extremity doppler after swelling persisted after 2 days which was negative for clot Cyst in left adnexum on CT--stable -Pt has h/o left ovary cyst, per outpt records at least since 2014 CAD, h/o NH, HTN--stable -Continue ASA -Pt 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 She has refused statins - patient has loop recorder Anemia of chronic disease - fecal occult negative, likely dilutional drop in hgb Diarrhea - c.diff negative. Patient reports history of diarrhea over past few months. Hypothyroidism -Continue Synthroid 50 mcg PO qd Peripheral edema -Held torsemide for elevated creatinine - restarted and given 1 dose lasix as above Skin tear - patient had skin tear over the night when getting up to the bathroom with assistance. Bleeding has stopped this morning. I think given that the bleeding is controlled and the fragility of her skin, will avoid suturing. Daily dressing changes, patient will have home health DVT prophylaxis -Heparin 5000 units SC q12h Code Status -Level V, DO NOT RESUSCITATE Dispo: patient refused rehab, family discussed with case management. Patient will dc to home with family support and home health ADDICTION SOCIAL WORKER Physician Supervision Note: I discussed with Tamanna Aguirre ADDICTION SOCIAL WORKER and agree with findings and plan as documented in the note. Any exceptions or clarifications are listed here: None UTI treated POA will patient has done well she did have a fall with a skin tear which was repaired Documented By: Sherwin Ding Total Time Spent: Greater than 30 minutes This includes examination of the patient, discharge planning, medication reconciliation, and communication with other providers. Discharge Instructions Please refer to the electronic Patient Visit Report (Discharge Instructions) for additional information. Follow-Up pcp within a week, Dr. Bojorquez Additional Copies To Mil Durand M.D.
[2018-06-02 09:56] VITALS: BP 132/69; PULSE 90; TEMP 36.6; O2SAT 95
[2018-06-02] MEDS: CEFUROXIME AXETIL 500 MG TAB PO SCH (12:28)
[2018-06-02] MEDS: ACETAMINOPHEN 325 MG TAB PO PRN (15:20)
== END 2018-06-02 17:37 | disposition home health service (06) | DRG 872 ==
LOC: EDBD 07:18 → C.EDB 07:19 → C.2T 10:36 → ENRESERV 10:44 → CANRESERV 05-29 12:08 → ENRESERV 05-29 13:20 → C.MS4W 05-29 14:41
PROVIDERS: ADMIT Hospitalist; ATTEND Nurse Practitioner Family
DX: A41.9 Sepsis, unspecified organism (principal); N18.4 Chronic kidney disease, stage 4 (severe); N39.0 Urinary tract infection, site not specified; I25.10 Atherosclerotic heart disease of native coronary artery without angina pectoris; I25.2 Old myocardial infarction; I12.9 Hypertensive chronic kidney disease with stage 1 through stage 4 chronic kidney disease, or unspecified chronic kidney disease; I44.1 Atrioventricular block, second degree; F41.9 Anxiety disorder, unspecified; G25.0 Essential tremor; E03.9 Hypothyroidism, unspecified; K21.9 Gastro-esophageal reflux disease without esophagitis; Z82.49 Family history of ischemic heart disease and other diseases of the circulatory system; Z88.5 Allergy status to narcotic agent; Z88.0 Allergy status to penicillin; Z88.1 Allergy status to other antibiotic agents; Z88.2 Allergy status to sulfonamides; Z79.82 Long term (current) use of aspirin; Z66 Do not resuscitate; E87.5 Hyperkalemia; I45.81 Long QT syndrome; R06.00 Dyspnea, unspecified; D63.8 Anemia in other chronic diseases classified elsewhere; R19.7 Diarrhea, unspecified

== ENCOUNTER 2018-06-06 13:02 | Inpatient (IN) | payer OTHER, MEDICARE ==
[~2018-06-06] VITALS: Ht 154.9 cm; Wt 60.1 kg
[~2018-06-06 13:02] MED LIST changes: -POTA1CAP53 PO
--- NOTE | 2018-06-06 13:56 | DIAGNOSTIC IMAGING REPORT ---
CHEST ONE VIEW PORTABLE HISTORY: 88 years-old Female Evaluate Fever/Sepsis acute fever and sepsis COMPARISON: Chest radiograph 06/01/2018 TECHNIQUE: Portable AP view of the chest FINDINGS: Cardiac silhouette is mildly enlarged, unchanged. Prominence of the right paratracheal tissues is unchanged. Calcification of the aorta. There is no pneumothorax or overt pulmonary edema. Trace bilateral pleural effusions with mildly improved aeration about the bilateral lung bases with minimal persistent subsegmental left basilar opacities noted. Mild right hemidiaphragmatic elevation. Healed remote displaced fracture of the proximal mid right humerus. Degenerative changes of the shoulders and spine. IMPRESSION: 1. Cardiomegaly without overt pulmonary edema. 2. Trace bilateral pleural effusions with improved aeration of the lung bases. 3. Subsegmental left basilar opacities suggest atelectasis or pneumonitis. The above report was generated using voice recognition software. It may contain grammatical, syntax or spelling errors. Electronically signed by: Marc Hernandes M.D. 06/06/2018 1:55 PM Dictated Date/Time: 06/06/2018 1:52 PM
[2018-06-06 14:47] LABS: BASO % 0.1 %; BASO ABS # 0.01 K/uL (0-0.2); HEMATOCRIT 30.2 % (37-47); HEMOGLOBIN 9.4 g/dL (12.0-16.0); IG# 0.07 K/uL (0.00-0.02); LYMPH % 2.9 %; LYMPH ABS # 0.44 K/uL (1.2-3.4); MEAN CELL VOLUME 91.8 fL (80-100); MEAN CORPUSCULAR HEMOGLOBIN 28.6 pg (25-34); MEAN CORPUSCULAR HGB CONC 31.1 g/dl (32-36); MEAN PLATELET VOLUME 9.4 fL (7.4-10.4); MONO % 3.5 %; MONO ABS # 0.54 K/uL (0.11-0.59); NEUT ABS # 14.29 K/uL (1.4-6.5); PLATELET COUNT 266 K/uL (130-400); WHITE BLOOD COUNT 15.35 K/uL (4.8-10.8)
--- NOTE | 2018-06-06 14:58 | EMERGENCY ROOM VISIT NOTE ---
History Report prepared by Karen: Len Lemus Under the Supervision of: Dr. Luis Wellington M.D. First contact with patient: 13:05 Stated Complaint: FEVER History of Present Illness The patient is an 88 year old female who presents to the Emergency Room with complaints for a persistent fever that was noticed this afternoon. The patient states that she cannot remember the exact temperature of the fever, but notes that it was over 101.0. She also complains of a rapid heart rate. The patient was seen in the emergency department on the , 10 days ago. She was admitted to the hospital for Urosepsis and was discharged on the , 4 days ago. Source of History: patient Onset: This afternoon Position: chest (rapid heart rate) Symptom Intensity: 101.0+ Quality: other (fever) Timing: other (persistent) Note: Patient notes rapid heart rate Review of Systems See HPI for pertinent positives and negatives. A total of ten systems were reviewed and were otherwise negative. Past Medical & Surgical Medical Problems: (1) abdominal pain (2) Acute kidney injury superimposed on chronic kidney disease (3) Asthma (4) Asthma exacerbation (5) C. difficile colitis (6) C. 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 (18) Fall (19) Fracture of left distal radius (20) Hyperkalemia, diminished renal excretion (21) Hyperphosphatemia (22) Hypertension (23) Hypertension (24) Left arm swelling (25) Left leg cellulitis (26) Left leg cellulitis (27) Left radial head fracture (28) Nausea and vomiting (29) Noninfected skin tear of left leg (30) Sepsis (31) Shortness of breath (32) Stable angina (33) Urinary tract infection (34) Wheezing Surgical Problems: (1) H/O: hysterectomy (2) S/P appendectomy (3) S/P cholecystectomy Family History FH: heart disease Hypertension Kidney disease Kidney stones Myocardial infarction Prostate cancer Social History Smoking Status: Former Smoker Alcohol Use: none Drug Use: none Marital Status: Housing Status: lives with family Occupation Status: retired Current/Historical Medications Scheduled Aspirin (Aspirin Ec), 81 MG PO QAM Cholecalciferol (Vitamin D 1000 Unit), 1,000 INTER.UNIT PO QPM Coconut Oil (Bulk) (Coconut Oil), 1 APPLN TOP UD Doxepin Hcl (Sinequan), 10 MG PO AMHS Levothyroxine Sodium (Levothyroxine Sodium), 50 MCG PO QAM Morphine Sulfate (Morphine Sulfate Ir), 2 TABS PO BID Multiple Vitamins W/ Minerals (Centrum), 1 TAB PO QPM Prednisone (Prednisone), 5 MG PO QAM Probiotic Product (Align), 4 MG PO DAILY Torsemide (Torsemide), 20 MG PO BID Scheduled PRN Albuterol Hfa (Ventolin Hfa), 2-4 PUFFS INH Q6H PRN for Shortness of Breath Polyethylene Glycol-Propylene (Systane), 1 DROP OP QID PRN for Eye Irritation Promethazine Hcl (Phenergan), 25 MG PO Q6H PRN for Nausea Allergies Coded Allergies: Codeine (Verified Allergy, Mild, 05/27/18) Penicillins (Verified Allergy, Mild, ., 05/27/18) tolerated cefepime Erythromycin (Verified Allergy, Unknown, ., 05/27/18) Sulfa Antibiotics (Verified Allergy, Unknown, Unknown, 05/27/18) Banana (Verified Adverse Reaction, Mild, GI symptoms, 05/28/18) Cantaloupe (Verified Adverse Reaction, Mild, GI SYMPTOMS FROM UNSPECIFIED MELONS, 05/28/18) Physical Exam Vital Signs Date Time Temp Pulse Resp B/P (MAP) Pulse Ox O2 Delivery O2 Flow Rate FiO2 06/06/18 14:28 100 16 187/121 94 Room Air 06/06/18 13:24 102 06/06/18 13:14 36.7 108 20 154/114 98 Nasal Cannula 4.0 Physical Exam GENERAL: Awake, alert, fatigued-appearing, in no distress HENT: Normocephalic, atraumatic. Oropharynx unremarkable. Mucous membranes are dry and cracked. EYES: Normal conjunctiva. Sclera non-icteric. NECK: Supple. No nuchal rigidity. FROM. No JVD. RESPIRATORY: Diminished at the bases. CARDIAC: Tachycardic rate, normal rhythm. Extremities warm and well perfused. Pulses equal. There is a 3/6 systolic ejection murmur. ABDOMEN: Soft, non-distended. No tenderness to palpation. No rebound or guarding. No masses. RECTAL: Deferred. MUSCULOSKELETAL: Chest examination reveals no tenderness. The back is symmetrical on inspection without obvious abnormality. There is no CVA tenderness to palpation. No joint edema. LOWER EXTREMITIES: Calves are equal size bilaterally. 3+ bilateral LE edema. There is mild anterior erythema and warmth with tenderness. There is a right proximal anterior lower leg skin tear. NEURO: Normal sensorium. No sensory or motor deficits noted. SKIN: No rash or jaundice noted. Medical Decision & Procedures ER Provider Diagnostic Interpretation: Radiology results as stated below per my review and radiologist interpretation: CHEST ONE VIEW PORTABLE HISTORY: 88 years-old Female Evaluate Fever/Sepsis acute fever and sepsis COMPARISON: Chest radiograph 06/01/2018 TECHNIQUE: Portable AP view of the chest FINDINGS: Cardiac silhouette is mildly enlarged, unchanged. Prominence of the right paratracheal tissues is unchanged. Calcification of the aorta. There is no pneumothorax or overt pulmonary edema. Trace bilateral pleural effusions with mildly improved aeration about the bilateral lung bases with minimal persistent subsegmental left basilar opacities noted. Mild right hemidiaphragmatic elevation. Healed remote displaced fracture of the proximal mid right humerus. Degenerative changes of the shoulders and spine. IMPRESSION: 1. Cardiomegaly without overt pulmonary edema. 2. Trace bilateral pleural effusions with improved aeration of the lung bases. 3. Subsegmental left basilar opacities suggest atelectasis or pneumonitis. The above report was generated using voice recognition software. It may contain grammatical, syntax or spelling errors. Electronically signed by: Marc Hernandes M.D. 06/06/2018 1:55 PM Dictated Date/Time: 06/06/2018 1:52 PM Laboratory Results 06/06/18 14:34 Red Blood Count 3.29, Mean Corpuscular Volume 91.8, Mean Corpuscular Hemoglobin 28.6, Mean Corpuscular Hemoglobin Concent 31.1, Mean Platelet Volume 9.4, Neutrophils (%) (Auto) 93.0, Lymphocytes (%) (Auto) 2.9, Monocytes (%) (Auto) 3.5, Eosinophils (%) (Auto) 0.0, Basophils (%) (Auto) 0.1, Neutrophils # (Auto) 14.29, Lymphocytes # (Auto) 0.44, Monocytes # (Auto) 0.54, Eosinophils # (Auto) 0.00, Basophils # (Auto) 0.01 06/06/18 14:34 Test 06/06/18 13:05 06/06/18 14:34 Urine Color YELLOW Urine Appearance CLEAR (CLEAR) Urine pH 6.5 (4.5-7.5) Urine Specific [place] 1.013 (1.000-1.030) Urine Protein 1+ (NEG) Urine Glucose (UA) NEG (NEG) Urine Ketones NEG (NEG) Urine Occult Blood NEG (NEG) Urine Nitrite NEG (NEG) Urine Bilirubin NEG (NEG) Urine Urobilinogen NEG (NEG) Urine Leukocyte Esterase NEG (NEG) Urine WBC (Auto) 0 /hpf (0-5) Urine RBC (Auto) 0-4 /hpf (0-4) Urine Hyaline Casts (Auto) 1-5 /lpf (0-5) Urine Epithelial Cells (Auto) 5-10 /lpf (0-5) Urine Bacteria (Auto) NEG (NEG) White Blood Count 15.35 K/uL (4.8-10.8) Red Blood Count 3.29 M/uL (4.2-5.4) Hemoglobin 9.4 g/dL (12.0-16.0) Hematocrit 30.2 % (37-47) Mean Corpuscular Volume 91.8 fL (80-100) Mean Corpuscular Hemoglobin 28.6 pg (25-34) Mean Corpuscular Hemoglobin Concent 31.1 g/dl (32-36) Platelet Count 266 K/uL (130-400) Mean Platelet Volume 9.4 fL (7.4-10.4) Neutrophils (%) (Auto) 93.0 % Lymphocytes (%) (Auto) 2.9 % Monocytes (%) (Auto) 3.5 % Eosinophils (%) (Auto) 0.0 % Basophils (%) (Auto) 0.1 % Neutrophils # (Auto) 14.29 K/uL (1.4-6.5) Lymphocytes # (Auto) 0.44 K/uL (1.2-3.4) Monocytes # (Auto) 0.54 K/uL (0.11-0.59) Eosinophils # (Auto) 0.00 K/uL (0-0.5) Basophils # (Auto) 0.01 K/uL (0-0.2) RDW Standard Deviation 57.0 fL (36.4-46.3) RDW Coefficient of Variation 17.0 % (11.5-14.5) Immature Granulocyte % (Auto) 0.5 % Immature Granulocyte # (Auto) 0.07 K/uL (0.00-0.02) Prothrombin Time 10.0 SECONDS (9.0-12.0) Prothromb Time International Ratio 1.0 (0.9-1.1) Venous Blood pH 7.46 (7.36-7.41) Venous Blood Partial Pressure CO2 50 mmHg (38.0-50.0) Venous Blood Partial Pressure O2 25 mmHg Venous Blood HCO3 35 mmol/L Venous Blood Oxygen Saturation < 60.0 % Venous Blood Base Excess 9.7 mEq/L Anion Gap 7.0 mmol/L (3-11) Est Creatinine Clear Calc Drug Dose 13.2 ml/min Estimated GFR () 24.3 Estimated GFR (Non- 21.0 BUN/Creatinine Ratio 10.6 (10-20) Calcium Level 8.7 mg/dl (8.5-10.1) Phosphorus Level 3.9 mg/dl (2.5-4.9) Magnesium Level 2.2 mg/dl (1.8-2.4) Total Bilirubin 0.8 mg/dl (0.2-1) Direct Bilirubin 0.2 mg/dl (0-0.2) Aspartate Amino Transf (AST/SGOT) 18 U/L (15-37) Alanine Aminotransferase (ALT/SGPT) 19 U/L (12-78) Alkaline Phosphatase 47 U/L (45-117) Total Protein 6.1 gm/dl (6.4-8.2) Albumin 2.6 gm/dl (3.4-5.0) Lipase 59 U/L (73-393) Laboratory results reviewed by me Medications Administered Medications (Trade) Dose Ordered Sig/Zack Route Start Time Stop Time Status Last Admin Dose Admin Vancomycin HCl (Vancomycin 1gm Ed/Asu Omnicell) 1 gm NOW STAT IV 06/06/18 15:18 06/06/18 15:21 DC 06/06/18 16:02 1 GM Cefepime HCl 1000 mg/Dextrose 111 ml @ 200 mls/hr NOW STAT IV 06/06/18 15:18 06/06/18 15:51 DC 06/06/18 16:02 200 MLS/HR Sodium Chloride 250 ml @ 999 mls/hr Q16M STAT IV 06/06/18 15:18 06/06/18 15:33 DC 06/06/18 15:18 999 MLS/HR Sodium Chloride 1,000 ml @ 75 mls/hr [id number] IV 06/06/18 16:13 07/06/18 16:12 06/06/18 18:21 75 MLS/HR Acetaminophen (Tylenol Tab) 650 mg Q4H PRN PO 06/06/18 16:15 07/06/18 16:14 06/06/18 21:42 650 MG ECG Per My Interpretation Indication: weakness Rate (beats per minute): 103 Rhythm: sinus tachycardia Findings: no acute ischemic change, other (LAD, No MANINDER) ED Course 1316: The patient was evaluated in room A12B. A complete history and physical exam was performed. Medical Decision I reviewed the patient's past medical history, medications, and the nursing notes as described above. Differential diagnosis: Etiologies such as cellulitis, abscess, MRSA infection, DVT, necrotizing fasciitis, dermatitis, drug eruption, as well as others were entertained. The patient is an 88-year-old woman with a past medical history of CKD, QT prolongation, left adnexal cyst, CAD with history of NM, hypertension, anemia of chronic disease, hypothyroidism, peripheral edema presents emergency department with onset of fever to 102 in setting of generalized weakness after being discharged from the hospital on 06/02 after a 6 day hospitalization for urosepsis per hpi. Of note, the patient was given Tylenol at home prior to arrival likely explaining her being afebrile. On arrival the patient is fatigued appearing but no acute distress, afebrile with heart rate in the 100s but otherwise stable vital signs. On exam the patient appears clinically dry mucous membranes albeit with chronic 3+ lower extremity edema however now with mild erythema and warmth anteriorly, mostly over the right proximal lower leg surrounding skin tear. WBC elevated to 15 which is up from 7 on 05/31. Chest x- ray without evidence of pneumonia. UA negative for infection. Troponin newly elevated to 0.05. EKG with nonspecific lateral T-wave abnormalities similar to prior otherwise no gross acute ischemia. Given the patient's new leukocytosis as well as troponin elevation is reasonable to admit the patient for IV antibiotics for cellulitis and possible early sepsis. Will treat with IV vancomycin and cefepime for now. Continue to trend troponins, likely demand in the setting of her infection. Case was discussed with EVERTON Sharif hospitalist, who will evaluate the patient for admission. Medication Reconcilliation Current Medication List: was personally reviewed by me Blood Pressure Screening Patient's blood pressure: Elevated blood pressure Consults Time Called: 1520 Consulting Physician: EVERTON Sharif hospitalist Returned Call: 1525 Will evaluate the patient for admission. Impression Primary Impression: Bilateral cellulitis of lower leg Additional Impression: Elevated troponin Scribe Attestation The scribe's documentation has been prepared under my direction and personally reviewed by me in its entirety. I confirm that the note above accurately reflects all work, treatment, procedures, and medical decision making performed by me. Departure Information Referrals Mil Durand M.D. (PCP) Problem Qualifiers
[2018-06-06 15:12] LABS: ALBUMIN 2.6 gm/dl (3.4-5.0); CALCIUM 8.7 mg/dl (8.5-10.1); CREATININE 2.06 mg/dl (0.60-1.20); PHOSPHORUS 3.9 mg/dl (2.5-4.9); POTASSIUM 4.5 mmol/L (3.5-5.1); TOTAL PROTEIN 6.1 gm/dl (6.4-8.2)
[2018-06-06] MEDS ORDERED: SODIUM CHLORIDE 0.9% 250ML 250 ML IV STA (15:18)
[2018-06-06] MEDS ORDERED: VANCOMYCIN 1GM ED/ASU OMNICELL IV STA (15:18)
[2018-06-06] MEDS ORDERED: CEFEPIME IV 1,000 MG in DEXTROSE 5% 100ML 100 ML IV STA (15:18)
[2018-06-06] MEDS ORDERED: ZOLPIDEM TARTRATE 5 MG TAB PO PRN ×2 (16:15)
[2018-06-06] MEDS ORDERED: ALBUTEROL HFA 8 GM INHALER INH PRN (16:15)
[2018-06-06] MEDS ORDERED: MAGNESIUM HYDROXIDE SUSP 30 ML UDC PO PRN (16:15)
[2018-06-06] MEDS ORDERED: ONDANSETRON INJ 2 MG/ML 2 ML VIAL IV PRN (16:15)
[2018-06-06] MEDS ORDERED: ACETAMINOPHEN 325 MG TAB PO PRN (16:15)
[2018-06-06] MEDS ORDERED: COCONUT OIL TOP SCH (16:15)
[2018-06-06] MEDS ORDERED: POLYETHYLENE (MIRALAX) 17 GM PACK PO PRN (16:15)
[2018-06-06] MEDS ORDERED: PROMETHAZINE HCL 25 MG TAB PO PRN (16:15)
[2018-06-06] MEDS ORDERED: ALUMINUM/MAGNESIUM/SIMETH (MAALOX MAX) 30 ML UDC PO PRN (16:15)
[2018-06-06] MEDS ORDERED: HydrALAZINE HCL 20 MG/ML VIAL IV. PRN (16:30)
[2018-06-06] MEDS ORDERED: AZTREONAM CONSULT ACTIVE PRN (16:38)
[2018-06-06] MEDS ORDERED: VANCOMYCIN CONSULT ACTIVE PRN (16:39)
--- NOTE | 2018-06-06 16:41 | History and Physical ---
History & Physical Date of Service Jun 06, 2018. History & Physical cellulitis , sepsis, [id number]
[2018-06-06 17:44] VITALS: BP 124/42; PULSE 114; TEMP 37.5; O2SAT 95; BMI 22.5
--- NOTE | 2018-06-06 18:01 | HISTORY & PHYSICAL EXAMINATION ---
DATE OF ADMISSION: 06/06/2018 This is a level 3 inpatient admission, 35 minutes. CHIEF COMPLAINT: Cellulitis, fever and chill. HISTORY OF PRESENT ILLNESS: Patient is an 88-year-old white female with a significant past medical history of UTI, bbbpf-gq-dutptog kidney failure, asthma, C. diff colitis, diarrhea, COPD, fall, left distal radial fracture, sepsis, CAD, angina, UTI, coming to the hospital Emergency Department because of the above chief complaint. Patient was having UTI, urosepsis, was discharged on 06/02/2018 which was 4 days ago. Patient and her 2 daughters noticed she was having persistent fever this afternoon, associated with shivering and shaking. Also, complained about rapid heart beating palpitation, after she arrived to the Emergency Room, she was found to have tachycardia; heart rate up, went away; continued with shivering, elevated blood pressure, she was found to have bilateral lower extremity cellulitis, right side more than left, leukocytosis. Was thought to have possible sepsis from cellulitis, blood cultures sent, antibiotic was started. When I interviewed with the patient, she was awake, alert and orientated, pleasant, conversational, followed all commands; however, had persistent shivering and shaking, reported bilateral lower extremity swelling, red rash and skin tearing in right anterior banda with drainages. Otherwise, denied decreased appetite; denied chest pain, palpitation; denied cough, sputum, shortness of breath; denied nausea, vomiting, abdominal pain, diarrhea, or constipation; denied dysuria, urgency and frequencies. Lower extremity swelling is as usual; however, has skin breakdown in the right middle of the banda; denied facial droop, slurry speeches or local weakness. PAST MEDICAL HISTORY: Like I mentioned in the above, which includes abdominal pain, obgfy-dd-faxygsu kidney injuries, acute renal failure, asthma, bronchitis, C. diff colitis, COPD, CAD, angina, left distal radial fracture, hypertension. PAST SURGICAL HISTORY: Include hysterectomy, appendectomy, cholecystectomy. FAMILY HISTORY: Includes heart disease, hypertension, kidney disease, kidney stone, myocardial infarction, prostate cancer. SOCIAL HISTORY: Never smoked. Denied alcohol abuse disorder, denied illicit drug abuse. Patient lives with family. ALLERGIES: ALLERGY TO CODEINE, PENICILLIN, BANANA, ERYTHROMYCIN, SULFA, CANTALOUPE. REVIEW OF SYSTEMS: Please see HPI. MEDICATIONS: 1. Medications currently taking at home include aspirin 81 mg p.o. daily, vitamin D 1000 units p.o. q.p.m., coconut oil 1 application daily, doxepin 10 mg a.m. and at bedtime, levothyroxine 50 mcg p.o. q.a.m., morphine instant release 2 tabs p.o. b.i.d. 2. Multiple vitamin 1 tab p.o. daily. 3. Prednisone 5 mg p.o. q.a.m., probiotic 4 mg p.o. daily, torsemide 20 mg p.o. b.i.d. As needed medications include Ventolin 2-4 puffs q. 6 hour p.r.n. for shortness of breath, Systane 1 drop q.i.d. p.r.n. for eye irritation. 4. Phenergan 25 mg p.o. q. 6 hours p.r.n. for nauseation. PHYSICAL EXAMINATION: VITAL SIGNS: Temperature is 36.7, pulse 108, respiratory rate 20, blood pressure 150/114, pulse ox was 98% on 4 liters. GENERAL: Patient is a white female, frail, shaking/shivering, however, conversational, follows all commands, pleasant, smiling. HEAD: Normocephalic. EYES: Pupils equal, round, responds to light. EARS: Ear was normal. NOSE: Normal. NECK: Supple. Thyroid no enlargement. Trachea is midline. LUNGS: Decreased breathing sounds. There were no wheezing, rhonchi or crackles. HEART: Regular rhythm. S1, S2. 3/6 murmurs. BILATERAL LOWER EXTREMITIES: 3-4+ edema. ABDOMEN: Soft, nontender. Bowel sound was positive. No mass. RECTAL: Deferred. MUSCULOSKELETAL: Chest wall nontender. Bilateral CVA was nontender. Joint no edema. Lower extremities have 3+ bilateral lower extremity edema. There was xslt-sz-shiyzchp bilateral lower extremity hot, warm, mild tender and right lower extremity has significantly sensitivity to palpation and very tender and in the middle of the skin has skin breakdown, skin tearing, irregular. NEUROLOGIC: Cranial nerves II-XII was intact. There was no local deficit. SKIN: Has no other rashes. IMAGING AND LABORATORY STUDIES: Other examinations in the Emergency Room which include a chest x-ray, cardiomegaly without pulmonary edema, trace bilateral pleural effusions. Lab studies, WBC 15, hemoglobin 9.5, platelets 266. Sodium 133, BUN 22, creatinine 2. Blood glucose 123. UA is negative, EKG shows sinus tachycardic. ASSESSMENT: An 88-year-old white female with the conditions below: 1. Bilateral lower extremity cellulitis right bigger than left. 2. Possible sepsis which is supported by leukocytosis, shivering, tachycardia. 3. Eszud-hx-eqrxtgx kidney injury. 4. Accelerated hypertension. 5. Minimal elevated troponin at 0.05 6. History of coronary artery disease, hypertension, sepsis, urinary tract infection, asthma, chronic obstructive pulmonary disease. 7. History of chronic pain. PLAN: 1. Patient obviously has bilateral lower extremity cellulitis, right bigger than left, right lower extremity, in addition to cellulitis, differential diagnosis include abscess because significantly tender in palpation. Patient has leukocytosis, tachycardia and shivering which support she possibly has early sepsis, we will give gentle IV fluid, will start broad-spectrum antibiotic, which include vancomycin and Azactam, I will not give Zosyn because PATIENT IS ALLERGIC TO PENICILLIN. We will watch hemodynamically, check her blood pressure, keep MAP more than 65, pressure support if needed, we will admit her to the tele, transfer her to the ICU if needed. Point of care lactic acid level is negative 1.1, we will check now and check in 6 hours after patient checking in. We will follow up troponin x2 set more. Troponin elevation likely because of the reactions to the possible sepsis or the troponin leakage from the eyctc-qv-kapcqze kidney failure. 2. For accelerated hypertension, we will give hydralazine. Because of apncn-qe-vvyqwxd kidney failure, we will avoid renal toxic medication, hold torsemide for now. 3. Gastrointestinal prophylaxis and deep vein thrombosis prophylaxis is covered. Discussed with patient and 2 daughters at bedside about the patient's conditions and care plan. Notify them patient's prognosis is guarded. They understand and agree with the care plan. Patient is DNR. MTDD
[2018-06-06] MEDS: SODIUM CHLORIDE 0.9% 1000ML 1,000 ML IV SCH (18:21)
--- NOTE | 2018-06-06 18:29 | Pharmacy Progress Note ---
Pharmacy Abx Dose Short Note Date of Service Jun 06, 2018. Assessment & Plan A/P Ms. Madison is an 88yo F being started on vanco/aztreonam. 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 She was discharged 4 days ago from [facility]. Vanco: * Received 1000mg (18.5mg/kg) in ED x1, this should reach a peak of about 25mcg/ mL * T1/2=45hrs, ke=[id number]. Renal fxn not at baseline. * Will order a random lvl for 06/07/18 @0444. At this point in time I dont think she will need any more vanco tonight, given her poor renal fxn and advanced age * Goal random lvl for sepsis: 15-20mcg/mL Aztreonam: * Cefepime 1g given in ED, will forgo the Aztreonam loading dose * Aztreonam 1g q12 appropriately dosed for eCrCl 10-30cc/min Pharmacy will continue to follow and will adjust dose/frequency as necessary. Thank you.
[2018-06-06 18:53] LABS: CKMB < 1.0 ng/ml (0.5-3.6)
[2018-06-06 19:26] VITALS: BP 142/89; PULSE 98; TEMP 38.1; O2SAT 93
[2018-06-06 20:00] VITALS: O2SAT 93
[2018-06-06] MEDS: MoRPHine SULFATE IR 15 MG TAB (IMMEDIATE RELEASE) PO SCH (21:14)
[2018-06-06] MEDS: CHOLECALCIFEROL 1000 INTER.UNIT TAB PO SCH (21:16)
[2018-06-06] MEDS: CEROVITE ADV FORMULA TAB PO SCH (21:16)
[2018-06-06] MEDS: DOXEPIN HCL 10 MG CAP PO SCH (21:17)
[2018-06-06] MEDS: HEPARIN SOD 5000 UNIT/0.5 ML CARP SQ SCH (21:23)
[2018-06-06] MEDS: AZTREONAM IV 1,000 MG in DEXTROSE 5% 100ML IV SCH (22:02)
[2018-06-06 22:58] VITALS: TEMP 37.4
[2018-06-07] VITALS (9 sets, daily range): BP systolic 98–141; BP diastolic 50–73; PULSE 77–103; TEMP 36.3–37.2; O2SAT 88–100; Ht 154.9 cm; Wt 60.1 kg
[2018-06-07 04:23] LABS: HEMATOCRIT 29.1 % (37-47); HEMOGLOBIN 9.2 g/dL (12.0-16.0); MEAN CELL VOLUME 91.5 fL (80-100); MEAN CORPUSCULAR HEMOGLOBIN 28.9 pg (25-34); MEAN CORPUSCULAR HGB CONC 31.6 g/dl (32-36); MEAN PLATELET VOLUME 9.3 fL (7.4-10.4); PLATELET COUNT 258 K/uL (130-400); RED CELL DISTRIBUTION WIDTH CV 17.3 % (11.5-14.5); RED CELL DISTRIBUTION WIDTH SD 57.8 fL (36.4-46.3); WHITE BLOOD COUNT 12.55 K/uL (4.8-10.8)
[2018-06-07 04:43] LABS: ALBUMIN 2.2 gm/dl (3.4-5.0); CREATININE 2.16 mg/dl (0.60-1.20); TOTAL PROTEIN 5.6 gm/dl (6.4-8.2)
[2018-06-07] MEDS: SODIUM CHLORIDE 0.9% 1000ML 1,000 ML IV SCH (05:42)
[2018-06-07] MEDS: LEVOTHYROXINE 50 MCG TAB PO SCH (05:44)
[2018-06-07] MEDS: ASPIRIN 81 MG ECTAB PO SCH (07:54)
[2018-06-07] MEDS: DOXEPIN HCL 10 MG CAP PO SCH ×2 (07:54→21:28)
[2018-06-07] MEDS: HEPARIN SOD 5000 UNIT/0.5 ML CARP SQ SCH ×2 (07:55→21:32)
[2018-06-07] MEDS: MoRPHine SULFATE IR 15 MG TAB (IMMEDIATE RELEASE) PO SCH ×2 (08:01→21:27)
--- NOTE | 2018-06-07 08:53 | DIAGNOSTIC IMAGING REPORT ---
R LOWER EXTREMITY WITHOUT HISTORY: 88 years-old Female want to r/o abscess acute pain and swelling of the right lower leg with cellulitis COMPARISON: Right foot and ankle radiographs 12/11/2016 TECHNIQUE: Multiple axial CT images of the right lower leg were obtained without the use of IV contrast. A dose lowering technique was used consistent with the principals of JOO. FINDINGS: Mild atrophy of the distal thigh and calf musculature. Extensive peripheral arterial calcifications are noted. Study is not tailored to assess the intrinsic tendons and ligaments of the knee. Small to moderate knee joint effusion. There is moderate subcutaneous edema with skin thickening about the mid and lower leg, ankle and imaged foot, notably anteromedially. No drainable fluid collections are identified. 1.8 x 1.1 cm lobulated calcification is noted lateral to the base of the fifth metatarsal with additional areas of soft tissue periarticular calcification noted about the midfoot. Additionally, peripherally corticated erosions about the midfoot are noted. No definite erosions of the first MTP joint. Degenerative changes are noted about the metatarsophalangeal and interphalangeal joints. Healed chronic fracture deformity about the mid shaft third metatarsal. Degenerative spurring about the calcaneus. Subcortical cystic changes of the distal tibia. 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 There are large osteophytes noted about the patellofemoral joint. IMPRESSION: 1. Moderate subcutaneous edema with skin thickening about the mid and lower leg, ankle and imaged foot, notably anteromedially suggests cellulitis and phlegmonous change without evidence of drainable abscess . 2. Demineralized appearance of the bones with osteoarthritis as above. 3. 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 4. No acute fracture or dislocation. 5. Small to moderate knee joint effusion. The above report was generated using voice recognition software. It may contain grammatical, syntax or spelling errors. Electronically signed by: Marc Hernandes M.D. 06/07/2018 8:52 AM Dictated Date/Time: 06/07/2018 8:32 AM
[2018-06-07] MEDS ORDERED: VANCOMYCIN IV 750 MG in SODIUM CHLORIDE 0.9% 250ML 250 ML IV ONE (09:00)
[2018-06-07] MEDS ORDERED: NON-FORMULARY MEDICATION (Probiotic Product (Align) 4 MG) PO SCH (09:00)
--- NOTE | 2018-06-07 09:34 | Clinical Documentation Query ---
CLINICAL DOCUMENTATION QUERY 88 yo female admitted for sepsis and cellulitis bilateral lower extremities. Patient is documented as having "theaj-bv-mfdfnut kidney injury". Patient's GFR range 30.1 to 19.8 over past month. In your clinical opinion is this patient being managed for: ( x ) Chronic kidney disease, stage 3 - 4 ( ) Not Agree ( ) Other explanation of clinical findings (No explanation is considered a No Response) ( ) Unable to determine ( ) Need to Discuss (Phone CDS or qliq) (No discussion is considered a No Response) The medical record reflects the following clinical findings, treatment, and risk factors. Clinical Indicators: As above Treatment: Serial PRPs, I&O Risk Factors: Age, HTN, [place] Please clarify and document your clinical opinion in the progress notes and discharge summary. Terms such as "probable", "suspected", "likely", "questionable", "possible", or "still to be ruled out" are acceptable. IF IN AGREEMENT, YOU MUST DOCUMENT ABOVE DIAGNOSTIC STATEMENT IN DAILY PROGRESS NOTES AND DISCHARGE SUMMARY. This document is not part of the patient's record. Thank You, Lexis Martinez RN, MSN [phone]
[2018-06-07] MEDS ORDERED: HYDROCODONE/ACETAMINOPHEN 7.5/325MG TAB PO STA (12:24)
[2018-06-07] MEDS ORDERED: HYDROCODONE/ACETAMIN 5/325MG TAB PO PRN (12:30)
--- NOTE | 2018-06-07 12:36 | Progress Note ---
Subjective Date of Service: Jun 07, 2018. Subjective Pt evaluation today including: conversation w/ patient, conversation w/ family , physical exam, chart review, lab review, review of studies, review of inpatient medication list Voiding: no voiding problems Sitting in chair, complaint generalized weakness, denies fever and chill, denied and right lower leg pain and swelling Problem List Medical Problems: (1) Acute electrocardiogram changes Status: Acute (2) ARF (acute renal failure) Status: Acute (3) Bilateral cellulitis of lower leg Status: Acute (4) Bronchitis Status: Acute (5) Cat bite Status: Acute (6) Cat scratch Status: Acute (7) Cat scratch of forearm Status: Acute (8) Cellulitis Status: Acute (9) Cellulitis of right leg Status: Acute (10) Diarrhea Status: Acute (11) Distal radius fracture, left Status: Acute (12) Dizziness Status: Acute (13) Encounter for wound re-check Status: Acute (14) Failure to thrive Status: Acute (15) Fluid overload Status: Acute (16) Forehead contusion Status: Acute (17) General weakness Status: Acute (18) Head injury, closed Status: Acute (19) Ileus Status: Acute (20) Left radial head fracture Status: Acute (21) Lower extremity edema Status: Acute (22) Mobitz type 2 second degree atrioventricular block Status: Acute (23) Renal insufficiency Status: Acute (24) Swelling of left extremity Status: Acute (25) Traumatic ecchymosis of left lower leg Status: Acute (26) Vomiting Status: Acute (27) Weakness Status: Acute Review of Systems Constitutional: + weakness, + fatigue, No fever, No chills, No sweats, No weight loss, No problem reported Eyes: No worsening of vision, No eye pain, No redness, No discharge, No diplopia ENT: No hearing loss, No unusual epistaxis, No nasal symptoms, No sore throat, No tinnitus, No dental problems, No trouble swallowing Respiratory: No cough, No sputum, No wheezing, No shortness of breath, No dyspnea on exertion, No dyspnea at rest, No hemoptysis Cardiac: No chest pain, No orthopnea, No PND, No edema, No claudication, No palpitations Abdomen: No pain, No nausea, No vomiting, No diarrhea, No constipation Musculoskeletal: + joint pain, No muscle pain, No swelling, No calf pain Female : No dysuria, No urinary frequency, No hematuria, No incontinence, No abnormal vaginal bleeding, No vaginal discharge Neurologic: No memory loss, No paralysis, No weakness, No numbness/tingling, No vertigo, No balance problems Psychiatric: No depression symptoms, No anhedonism, No anxiety, No insomnia, No substance abuse Heme: No abnormal bleeding/bruising, No clotting problems, No swollen lymph nodes, No night sweats Endo: No fatigue, No excessive thirst, No excessive urination Skin: + problem reported (Hot and pin sorter and bagger bilateral lower extremity), No rash, No itch, No new/changing skin lesions, No color change, No bleeding Objective Vital Signs Date Time Temp Pulse Resp B/P (MAP) Pulse Ox O2 Delivery O2 Flow Rate FiO2 06/07/18 11:41 37.2 96 19 118/66 (83) 95 Room Air 06/07/18 08:00 Room Air 2.0 06/07/18 07:44 36.3 85 18 112/59 (76) 94 Nasal Cannula 1.0 06/07/18 04:31 36.7 84 20 123/68 (86) 92 Nasal Cannula 1.0 06/07/18 00:18 94 Nasal Cannula 2.0 06/07/18 00:13 37.0 103 17 98/50 (66) 88 Room Air 06/06/18 22:58 37.4 06/06/18 20:00 93 Room Air 2.0 06/06/18 19:26 38.1 98 16 142/89 (106) 93 Room Air 06/06/18 17:44 37.5 114 20 124/42 95 Room Air 2.0 06/06/18 17:01 103 20 137/79 94 Nasal Cannula 2.0 06/06/18 14:28 100 16 187/121 94 Room Air 06/06/18 13:24 102 06/06/18 13:14 36.7 108 20 154/114 98 Nasal Cannula 4.0 Physical Exam General Appearance: WD/WN, no apparent distress, + thin, + pertinent finding ( Frail, chronically ill looking,) Eyes: normal inspection, PERRL, EOMI, sclerae normal ENT: normal ENT inspection, hearing grossly normal, pharynx normal Neck: supple, no adenopathy, thyroid normal, no JVD, no carotid bruits, trachea midline Respiratory/Chest: chest non-tender, normal breath sounds, no respiratory distress, no accessory muscle use, + decreased breath sounds Cardiovascular: regular rate, rhythm, no edema, no gallop, no JVD, no murmur Abdomen: normal bowel sounds, non tender, soft, no organomegaly, no pulsatile mass Extremities: normal range of motion, normal inspection, normal capillary refill , pelvis stable, + inflammation, + swelling (2-3+ bilateral lower extremity edema,), + pertinent finding (Right lower extremity has hot and obvious tender, with skin opening wound, some yellow drainage) Neurologic/Psychiatric: 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 assistant 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 II-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 nml as tested, no motor/sensory deficits, alert, normal mood/affect, oriented x 3 Skin: normal color, warm/dry, no rash Lymphatic: no adenopathy Laboratory Results Last 24 Hours Test 06/06/18 13:05 06/06/18 14:34 06/06/18 18:13 06/07/18 04:13 Urine Color YELLOW Urine Appearance CLEAR Urine pH 6.5 Urine Specific [place] 1.013 Urine Protein 1+ Urine Glucose (UA) NEG Urine Ketones NEG Urine Occult Blood NEG Urine Nitrite NEG Urine Bilirubin NEG Urine Urobilinogen NEG Urine Leukocyte Esterase NEG Urine WBC (Auto) 0 /hpf Urine RBC (Auto) 0-4 /hpf Urine Hyaline Casts (Auto) 1-5 /lpf Urine Epithelial Cells (Auto) 5-10 /lpf Urine Bacteria (Auto) NEG White Blood Count 15.35 K/uL 12.55 K/uL Red Blood Count 3.29 M/uL 3.18 M/uL Hemoglobin 9.4 g/dL 9.2 g/dL Hematocrit 30.2 % 29.1 % Mean Corpuscular Volume 91.8 fL 91.5 fL Mean Corpuscular Hemoglobin 28.6 pg 28.9 pg Mean Corpuscular Hemoglobin Concent 31.1 g/dl 31.6 g/dl Platelet Count 266 K/uL 258 K/uL Mean Platelet Volume 9.4 fL 9.3 fL Neutrophils (%) (Auto) 93.0 % Lymphocytes (%) (Auto) 2.9 % Monocytes (%) (Auto) 3.5 % Eosinophils (%) (Auto) 0.0 % Basophils (%) (Auto) 0.1 % Neutrophils # (Auto) 14.29 K/uL Lymphocytes # (Auto) 0.44 K/uL Monocytes # (Auto) 0.54 K/uL Eosinophils # (Auto) 0.00 K/uL Basophils # (Auto) 0.01 K/uL RDW Standard Deviation 57.0 fL 57.8 fL RDW Coefficient of Variation 17.0 % 17.3 % Immature Granulocyte % (Auto) 0.5 % Immature Granulocyte # (Auto) 0.07 K/uL Prothrombin Time 10.0 SECONDS Prothromb Time International Ratio 1.0 Venous Blood pH 7.46 Venous Blood Partial Pressure CO2 50 mmHg Venous Blood Partial Pressure O2 25 mmHg Venous Blood HCO3 35 mmol/L Venous Blood Oxygen Saturation < 60.0 % Venous Blood Base Excess 9.7 mEq/L Sodium Level 133 mmol/L 134 mmol/L Potassium Level 4.5 mmol/L 4.0 mmol/L Chloride Level 94 mmol/L 99 mmol/L Carbon Dioxide Level 32 mmol/L 28 mmol/L Anion Gap 7.0 mmol/L 7.0 mmol/L Blood Urea Nitrogen 22 mg/dl 24 mg/dl Creatinine 2.06 mg/dl 2.16 mg/dl Est Creatinine Clear Calc Drug Dose 13.2 ml/min 13.6 ml/min Estimated GFR () 24.3 23.0 Estimated GFR (Non- 21.0 19.8 BUN/Creatinine Ratio 10.6 11.0 Random Glucose 123 mg/dl 102 mg/dl Lactic Acid Level 1.1 mmol/L 1.5 mmol/L 0.7 mmol/L Calcium Level 8.7 mg/dl 8.0 mg/dl Phosphorus Level 3.9 mg/dl Magnesium Level 2.2 mg/dl 2.1 mg/dl Total Bilirubin 0.8 mg/dl 0.7 mg/dl Direct Bilirubin 0.2 mg/dl Aspartate Amino Transf (AST/SGOT) 18 U/L 16 U/L Alanine Aminotransferase (ALT/SGPT) 19 U/L 16 U/L Alkaline Phosphatase 47 U/L 46 U/L Troponin I 0.055 ng/ml 0.049 ng/ml Total Protein 6.1 gm/dl 5.6 gm/dl Albumin 2.6 gm/dl 2.2 gm/dl Lipase 59 U/L Creatine Kinase MB < 1.0 ng/ml Creatine Kinase MB Ratio Globulin 3.4 gm/dl Albumin/Globulin Ratio 0.6 Procalcitonin 0.39 ng/ml Random Vancomycin Level 9.1 mcg/ml Assessment and Plan 88-year-old white female admitted on June 06, 2018 because of bilateral lower extremity cellulitis Bilateral lower extremity cellulitis, right bigger than left. Right lower extremity CT studies has rule out abscess Possible sepsis which is supported by leukocytosis, shivering, tachycardia. Follow-up blood culture [id number] kidney injury stage III-IV Accelerated hypertension, stable and better hydralazine as needed Minimal elevated troponin at 0.05, likely because of demanding ischemia, history of stone, patient denied chest pain, no EKG changes, History of coronary artery disease, hypertension, sepsis, urinary tract infection, asthma, chronic obstructive pulmonary disease. Continue broad-spectrum antibiotic, which include vancomycin and Azactam, Discontinue IV fluid CT studies has no abscess Ordered pain medicine for pain control Colace ordered for the over come the side effect of narcotics which may cause constipation Talked to nurse to have stool with trace bilateral lower extremity PT OT evaluation and treatment, however patient declined OT Close monitoring renal function, and avoiding often see medication Gastrointestinal prophylaxis and deep vein thrombosis prophylaxis is covered. DNR. Continued [facility] stay due to: multiple IV medications needed Discharge planning: home
--- NOTE | 2018-06-07 12:51 | Pharmacy Progress Note ---
Pharmacy Abx Dose Short Note Date of Service Jun 07, 2018. Assessment & Plan Item Value Date Time White Blood Count 15.35 K/uL H 06/06/18 1434 White Blood Count 12.55 K/uL H 06/07/18 0413 Creatinine 2.16 mg/dl H 06/07/18 0413 Est Creatinine Clear Calc Drug Dose 13.6 ml/min 06/07/18 0413 Random Vancomycin Level 9.1 mcg/ml 06/07/18 0413 Assessment 88 year old female receiving Vancomycin for treatment of cellulitis and sepsis Day # 2 of antimicrobial therapy with Vanc and Aztreonam Plan Vancomycin * Random level of 9.1 mcg/mL is slightly subtherapeutic after one dose of Vanc 1 ,000 mg * Goal trough level for cellulitis and sepsis : 15-20 mcg/mL * Give a one time dose of Vanc 750mg (14.2mg/kg) * Dosing based on random levels due to patient's poor kidney function and advanced age * Random level ordered for: 06/08/18 with AM labs Pharmacy will continue to follow and will adjust dose/frequency as necessary. Thank you.
[2018-06-07] MEDS: AZTREONAM IV 1,000 MG in DEXTROSE 5% 100ML IV SCH ×2 (13:19→21:26)
[2018-06-07] MEDS: DOCUSATE SODIUM 100 MG CAP PO SCH (21:27)
[2018-06-07] MEDS: SACCHAROMYCES BOUL (FLORASTOR) 250 MG CAP PO SCH (21:27)
[2018-06-07] MEDS: CEROVITE ADV FORMULA TAB PO SCH (21:28)
[2018-06-07] MEDS: CHOLECALCIFEROL 1000 INTER.UNIT TAB PO SCH (21:29)
[2018-06-08] VITALS (7 sets, daily range): BP systolic 93–146; BP diastolic 59–79; PULSE 74–95; TEMP 36.5–37.5; O2SAT 95–97
[2018-06-08] MEDS: LEVOTHYROXINE 50 MCG TAB PO SCH (06:08)
[2018-06-08 06:19] LABS: HEMATOCRIT 28.4 % (37-47); HEMOGLOBIN 8.9 g/dL (12.0-16.0); MEAN CELL VOLUME 92.2 fL (80-100); MEAN CORPUSCULAR HEMOGLOBIN 28.9 pg (25-34); MEAN CORPUSCULAR HGB CONC 31.3 g/dl (32-36); MEAN PLATELET VOLUME 9.7 fL (7.4-10.4); PLATELET COUNT 299 K/uL (130-400); RED CELL DISTRIBUTION WIDTH CV 17.1 % (11.5-14.5); RED CELL DISTRIBUTION WIDTH SD 57.1 fL (36.4-46.3); WHITE BLOOD COUNT 8.38 K/uL (4.8-10.8)
[2018-06-08 07:02] LABS: ALBUMIN 2.1 gm/dl (3.4-5.0); CALCIUM 8.4 mg/dl (8.5-10.1); CREATININE 1.98 mg/dl (0.60-1.20); POTASSIUM 4.1 mmol/L (3.5-5.1); TOTAL PROTEIN 5.6 gm/dl (6.4-8.2)
[2018-06-08] MEDS: DOCUSATE SODIUM 100 MG CAP PO SCH ×2 (09:00→20:05)
[2018-06-08] MEDS: AZTREONAM IV 1,000 MG in DEXTROSE 5% 100ML IV SCH (09:12)
[2018-06-08] MEDS: DOXEPIN HCL 10 MG CAP PO SCH ×2 (09:13→20:06)
[2018-06-08] MEDS: ASPIRIN 81 MG ECTAB PO SCH (09:14)
[2018-06-08] MEDS: SACCHAROMYCES BOUL (FLORASTOR) 250 MG CAP PO SCH ×2 (09:14→20:07)
[2018-06-08] MEDS: HEPARIN SOD 5000 UNIT/0.5 ML CARP SQ SCH ×2 (09:15→21:24)
[2018-06-08] MEDS: MoRPHine SULFATE IR 15 MG TAB (IMMEDIATE RELEASE) PO SCH ×2 (09:19→10:39)
[2018-06-08] MEDS ORDERED: VANCOMYCIN IV 750 MG in SODIUM CHLORIDE 0.9% 250ML 250 ML IV ONE (10:00)
[2018-06-08] MEDS: HYDROCODONE/ACETAMINOPHEN 7.5/325MG TAB PO PRN ×2 (13:02→22:45)
--- NOTE | 2018-06-08 13:34 | Pharmacy Progress Note ---
Pharmacy Abx Dose Short Note Date of Service Jun 08, 2018. Assessment & Plan Item Value Date Time Random Vancomycin Level 15.4 mcg/ml 06/08/18 0550 Assessment 88 year old female receiving Vanc and Aztreonam for treatment of Cellulitis/ sepsis Day # 3 of antimicrobial therapy. Blood cultures show No growth to date Plan Vancomycin * Random level of 15.4 mcg/mL * Currently dosing by levels due to patient's kidney function and advanced age. * Give a one time dose of 750mg IV * Goal trough level for cellulitis/sepsis : 15 to 20 mcg/mL * Random level ordered for: 06/09/18 with AM labs. If level is in range, recommend dosing patient at 750mg Q24 Pharmacy will continue to follow and will adjust dose/frequency as necessary. Thank you.
[2018-06-08] MEDS ORDERED: TORSEMIDE 20 MG TAB PO STA (14:41)
--- NOTE | 2018-06-08 14:49 | Progress Note ---
Subjective Date of Service: Jun 08, 2018. Subjective Pt evaluation today including: conversation w/ patient, conversation w/ family , physical exam, chart review, lab review, review of studies, conversation w/ strategy execution consultant, review of inpatient medication list Complaining about lower extremity pain is better, however still swelling, report on home O2, however when checking room air here pulse was 94%, complaint lower extremity swelling bilateral lower extremity Problem List Medical Problems: (1) Acute electrocardiogram changes Status: Acute (2) ARF (acute renal failure) Status: Acute (3) Bilateral cellulitis of lower leg Status: Acute (4) Bronchitis Status: Acute (5) Cat bite Status: Acute (6) Cat scratch Status: Acute (7) Cat scratch of forearm Status: Acute (8) Cellulitis Status: Acute (9) Cellulitis of right leg Status: Acute (10) Diarrhea Status: Acute (11) Distal radius fracture, left Status: Acute (12) Dizziness Status: Acute (13) Encounter for wound re-check Status: Acute (14) Failure to thrive Status: Acute (15) Fluid overload Status: Acute (16) Forehead contusion Status: Acute (17) General weakness Status: Acute (18) Head injury, closed Status: Acute (19) Ileus Status: Acute (20) Left radial head fracture Status: Acute (21) Lower extremity edema Status: Acute (22) Mobitz type 2 second degree atrioventricular block Status: Acute (23) Renal insufficiency Status: Acute (24) Swelling of left extremity Status: Acute (25) Traumatic ecchymosis of left lower leg Status: Acute (26) Vomiting Status: Acute (27) Weakness Status: Acute Review of Systems Constitutional: + weakness, + fatigue, No fever, No chills, No sweats, No weight loss, No problem reported Eyes: No worsening of vision, No eye pain, No redness, No discharge, No diplopia ENT: No hearing loss, No unusual epistaxis, No nasal symptoms, No sore throat, No tinnitus, No dental problems, No trouble swallowing Respiratory: No cough, No sputum, No wheezing, No shortness of breath, No dyspnea on exertion, No dyspnea at rest, No hemoptysis Cardiac: + edema, No chest pain, No orthopnea, No PND, No claudication, No palpitations Abdomen: No pain, No nausea, No vomiting, No diarrhea, No constipation Musculoskeletal: No joint pain, No muscle pain, No swelling, No calf pain Female : No dysuria, No urinary frequency, No hematuria, No incontinence, No abnormal vaginal bleeding, No vaginal discharge Neurologic: No memory loss, No paralysis, No weakness, No numbness/tingling, No vertigo, No balance problems Psychiatric: No depression symptoms, No anhedonism, No anxiety, No insomnia, No substance abuse Heme: No abnormal bleeding/bruising, No clotting problems, No swollen lymph nodes, No night sweats Endo: + fatigue, No excessive thirst, No excessive urination Skin: + rash (Cellulitis of bilateral lower extremity and the rash is better compared to admission), No itch, No new/changing skin lesions, No color change, No bleeding Objective Vital Signs Date Time Temp Pulse Resp B/P (MAP) Pulse Ox O2 Delivery O2 Flow Rate FiO2 06/08/18 13:23 95 Room Air 06/08/18 11:47 36.7 80 16 125/61 (82) 96 Room Air 06/08/18 08:00 Room Air 06/08/18 07:55 36.6 74 16 93/59 (70) 96 Room Air 06/08/18 03:55 37.5 93 20 133/74 (93) 97 Nasal Cannula 2.0 06/07/18 23:59 Nasal Cannula 2.0 06/07/18 22:53 37.0 84 20 127/62 (83) 99 Nasal Cannula 2.0 06/07/18 19:46 36.7 77 20 141/73 (95) 100 Nasal Cannula 2.0 06/07/18 16:29 36.7 84 18 118/61 (80) 98 Room Air 06/07/18 16:00 95 Room Air Physical Exam General Appearance: WD/WN, no apparent distress, + thin, + pertinent finding ( Frail, chronically ill looking,) Eyes: normal inspection, PERRL, EOMI, sclerae normal ENT: normal ENT inspection, hearing grossly normal, pharynx normal Neck: supple, no adenopathy, thyroid normal, no JVD, no carotid bruits, trachea midline Respiratory/Chest: chest non-tender, normal breath sounds, no respiratory distress, no accessory muscle use, + decreased breath sounds Cardiovascular: regular rate, rhythm, no gallop, no JVD, no murmur, + pertinent finding (2-3+ edema) Abdomen: normal bowel sounds, non tender, soft, no organomegaly, no pulsatile mass Extremities: normal range of motion, non-tender, normal inspection, no pedal edema, no calf tenderness, normal capillary refill, pelvis stable, + pertinent finding (Bilateral lower extremity is tender to palpation, On the hot of skin is better) Neurologic/Psychiatric: chestnut tanner II-XII nml as tested, no motor/sensory deficits, alert, normal mood/affect, oriented x 3 Skin: normal color, warm/dry, no rash Lymphatic: no adenopathy Laboratory Results Last 24 Hours Test 06/08/18 05:50 White Blood Count 8.38 K/uL Red Blood Count 3.08 M/uL Hemoglobin 8.9 g/dL Hematocrit 28.4 % Mean Corpuscular Volume 92.2 fL Mean Corpuscular Hemoglobin 28.9 pg Mean Corpuscular Hemoglobin Concent 31.3 g/dl RDW Standard Deviation 57.1 fL RDW Coefficient of Variation 17.1 % Platelet Count 299 K/uL Mean Platelet Volume 9.7 fL Sodium Level 132 mmol/L Potassium Level 4.1 mmol/L Chloride Level 95 mmol/L Carbon Dioxide Level 30 mmol/L Anion Gap 7.0 mmol/L Blood Urea Nitrogen 24 mg/dl Creatinine 1.98 mg/dl Est Creatinine Clear Calc Drug Dose 14.8 ml/min Estimated GFR () 25.5 Estimated GFR (Non- 22.0 BUN/Creatinine Ratio 12.2 Random Glucose 115 mg/dl Calcium Level 8.4 mg/dl Magnesium Level 2.1 mg/dl Total Bilirubin 0.3 mg/dl Aspartate Amino Transf (AST/SGOT) 15 U/L Alanine Aminotransferase (ALT/SGPT) 16 U/L Alkaline Phosphatase 62 U/L Total Protein 5.6 gm/dl Albumin 2.1 gm/dl Globulin 3.5 gm/dl Albumin/Globulin Ratio 0.6 Random Vancomycin Level 15.4 mcg/ml Assessment and Plan 88-year-old white female admitted on June 06, 2018 because of bilateral lower extremity cellulitis Bilateral lower extremity cellulitis, right bigger than left. Right lower extremity CT studies has rule out abscess Was having significant pain, which is improved Possible sepsis which is supported by leukocytosis, shivering, tachycardia. Follow-up blood culture so far negative [id number] kidney injury stage III-IV, stable and improved Accelerated hypertension, stable and better hydralazine as needed Minimal elevated troponin at 0.05, likely because of demanding ischemia, history of stone, patient denied chest pain, no EKG changes, History of coronary artery disease, hypertension, sepsis, urinary tract infection, asthma, chronic obstructive pulmonary disease. Blood culture has been negative, patient has been no fever no chills, no leukocytosis, Change IV antibiotic to oral Levaquin 750 q. 2 days, Discontinue IV fluid CT studies has no abscess Ordered pain medicine for pain control Colace ordered for the over come the side effect of narcotics which may cause constipation PT OT evaluation and treatment, however patient declined OT Close monitoring renal function, and avoiding often see medication Gastrointestinal prophylaxis and deep vein thrombosis prophylaxis is covered. Physical therapy report nervous benefit from a rehab stay upon [facility] discharge, or 24 hour care if she is planning to return home. , Patient requested e going home with family support, discussed with patient about risk and benefit, patient willing to take on a risk by herself DNR. Continued [facility] stay due to: multiple IV medications needed Discharge planning: home
[2018-06-08] MEDS ORDERED: LEVOFLOXACIN 750 MG TAB PO SCH (18:00)
[2018-06-08] MEDS: CHOLECALCIFEROL 1000 INTER.UNIT TAB PO SCH (20:06)
[2018-06-08] MEDS: CEROVITE ADV FORMULA TAB PO SCH (20:07)
[2018-06-09 06:05] LABS: HEMATOCRIT 29.1 % (37-47); HEMOGLOBIN 9.2 g/dL (12.0-16.0); MEAN CELL VOLUME 91.2 fL (80-100); MEAN CORPUSCULAR HEMOGLOBIN 28.8 pg (25-34); MEAN CORPUSCULAR HGB CONC 31.6 g/dl (32-36); MEAN PLATELET VOLUME 9.1 fL (7.4-10.4); PLATELET COUNT 296 K/uL (130-400); RED CELL DISTRIBUTION WIDTH CV 16.5 % (11.5-14.5); RED CELL DISTRIBUTION WIDTH SD 55.2 fL (36.4-46.3); WHITE BLOOD COUNT 6.15 K/uL (4.8-10.8)
[2018-06-09] MEDS: LEVOTHYROXINE 50 MCG TAB PO SCH (06:15)
[2018-06-09 06:27] LABS: ALBUMIN 2.1 gm/dl (3.4-5.0); CALCIUM 8.4 mg/dl (8.5-10.1); CREATININE 2.01 mg/dl (0.60-1.20); POTASSIUM 4.3 mmol/L (3.5-5.1); TOTAL PROTEIN 5.6 gm/dl (6.4-8.2)
[2018-06-09] MEDS: SACCHAROMYCES BOUL (FLORASTOR) 250 MG CAP PO SCH ×2 (08:24→19:41)
[2018-06-09] MEDS: DOCUSATE SODIUM 100 MG CAP PO SCH ×2 (08:24→19:35)
[2018-06-09] MEDS: DOXEPIN HCL 10 MG CAP PO SCH ×3 (08:24→19:43)
[2018-06-09] MEDS: ASPIRIN 81 MG ECTAB PO SCH (08:24)
[2018-06-09] MEDS: HEPARIN SOD 5000 UNIT/0.5 ML CARP SQ SCH ×2 (08:25→21:27)
[2018-06-09] MEDS: MoRPHine SULFATE IR 15 MG TAB (IMMEDIATE RELEASE) PO SCH ×2 (08:25→21:27)
[2018-06-09] MEDS: TORSEMIDE 20 MG TAB PO SCH (09:47)
[2018-06-09 10:48] VITALS: BP 147/85; PULSE 101; TEMP 36.6; O2SAT 95
[2018-06-09 14:59] VITALS: BP 139/76; PULSE 86; TEMP 36.4; O2SAT 96
--- NOTE | 2018-06-09 15:34 | Progress Note ---
Subjective Date of Service: Jun 09, 2018. Subjective Pt evaluation today including: conversation w/ patient, conversation w/ family , physical exam, chart review, lab review, review of studies, review of inpatient medication list Generally feeling better, no spiking fever, bilateral lower extremity swelling is better, bilateral lower extremity hot and red is improving, Problem List Medical Problems: (1) Acute electrocardiogram changes Status: Acute (2) ARF (acute renal failure) Status: Acute (3) Bilateral cellulitis of lower leg Status: Acute (4) Bronchitis Status: Acute (5) Cat bite Status: Acute (6) Cat scratch Status: Acute (7) Cat scratch of forearm Status: Acute (8) Cellulitis Status: Acute (9) Cellulitis of right leg Status: Acute (10) Diarrhea Status: Acute (11) Distal radius fracture, left Status: Acute (12) Dizziness Status: Acute (13) Encounter for wound re-check Status: Acute (14) Failure to thrive Status: Acute (15) Fluid overload Status: Acute (16) Forehead contusion Status: Acute (17) General weakness Status: Acute (18) Head injury, closed Status: Acute (19) Ileus Status: Acute (20) Left radial head fracture Status: Acute (21) Lower extremity edema Status: Acute (22) Mobitz type 2 second degree atrioventricular block Status: Acute (23) Renal insufficiency Status: Acute (24) Swelling of left extremity Status: Acute (25) Traumatic ecchymosis of left lower leg Status: Acute (26) Vomiting Status: Acute (27) Weakness Status: Acute Review of Systems Constitutional: + weakness, + fatigue, No fever, No chills, No sweats, No weight loss, No problem reported Eyes: No worsening of vision, No eye pain, No redness, No discharge, No diplopia ENT: No hearing loss, No unusual epistaxis, No nasal symptoms, No sore throat, No tinnitus, No dental problems, No trouble swallowing Respiratory: No cough, No sputum, No wheezing, No shortness of breath, No dyspnea on exertion, No dyspnea at rest, No hemoptysis Cardiac: No chest pain, No orthopnea, No PND, No edema, No claudication, No palpitations Abdomen: No pain, No nausea, No vomiting, No diarrhea, No constipation Musculoskeletal: No joint pain, No muscle pain, No swelling, No calf pain Female : No dysuria, No urinary frequency, No hematuria, No incontinence, No abnormal vaginal bleeding, No vaginal discharge Neurologic: No memory loss, No paralysis, No weakness, No numbness/tingling, No vertigo, No balance problems Psychiatric: No depression symptoms, No anhedonism, No anxiety, No insomnia, No substance abuse Heme: No abnormal bleeding/bruising, No clotting problems, No swollen lymph nodes, No night sweats Endo: No fatigue, No excessive thirst, No excessive urination Skin: + rash, No itch, No new/changing skin lesions, No color change, No bleeding Objective Vital Signs Date Time Temp Pulse Resp B/P (MAP) Pulse Ox O2 Delivery O2 Flow Rate FiO2 06/09/18 14:59 36.4 86 18 139/76 (97) 96 Room Air 06/09/18 10:48 36.6 101 20 147/85 (105) 95 Room Air 06/09/18 09:32 Room Air 06/09/18 00:30 Room Air 06/08/18 23:58 36.5 95 20 144/79 (100) 95 Room Air 06/08/18 18:57 37.2 92 20 146/73 (97) 96 Room Air 06/08/18 16:00 36.6 81 18 137/66 (89) 95 Room Air Physical Exam General Appearance: WD/WN, no apparent distress, + thin, + pertinent finding ( Frail chronically ill looking,) Eyes: normal inspection, PERRL, EOMI, sclerae normal ENT: normal ENT inspection, hearing grossly normal, pharynx normal Neck: supple, no adenopathy, thyroid normal, no JVD, no carotid bruits, trachea midline Respiratory/Chest: chest non-tender, normal breath sounds, no respiratory distress, no accessory muscle use, + decreased breath sounds Cardiovascular: regular rate, rhythm, no gallop, no JVD, no murmur, + pertinent finding (2-3+ edema) Abdomen: normal bowel sounds, non tender, soft, no organomegaly, no pulsatile mass Extremities: normal range of motion, non-tender, normal inspection, no pedal edema, no calf tenderness, normal capillary refill, pelvis stable, + swelling (2 -3+) 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, no motor/sensory deficits, alert, normal mood/affect, oriented x 3 Skin: normal color, warm/dry, no rash, + pertinent finding (Left lower extremity skin no hot in touch and palpation, obvious pain is better) Lymphatic: no adenopathy Laboratory Results Last 24 Hours Test 06/09/18 05:42 White Blood Count 6.15 K/uL Red Blood Count 3.19 M/uL Hemoglobin 9.2 g/dL Hematocrit 29.1 % Mean Corpuscular Volume 91.2 fL Mean Corpuscular Hemoglobin 28.8 pg Mean Corpuscular Hemoglobin Concent 31.6 g/dl RDW Standard Deviation 55.2 fL RDW Coefficient of Variation 16.5 % Platelet Count 296 K/uL Mean Platelet Volume 9.1 fL Sodium Level 134 mmol/L Potassium Level 4.3 mmol/L Chloride Level 99 mmol/L Carbon Dioxide Level 28 mmol/L Anion Gap 6.0 mmol/L Blood Urea Nitrogen 28 mg/dl Creatinine 2.01 mg/dl Est Creatinine Clear Calc Drug Dose 16.1 ml/min Estimated GFR () 25.0 Estimated GFR (Non- 21.6 BUN/Creatinine Ratio 13.9 Random Glucose 89 mg/dl Calcium Level 8.4 mg/dl Magnesium Level 2.1 mg/dl Total Bilirubin 0.3 mg/dl Aspartate Amino Transf (AST/SGOT) 16 U/L Alanine Aminotransferase (ALT/SGPT) 16 U/L Alkaline Phosphatase 45 U/L Total Protein 5.6 gm/dl Albumin 2.1 gm/dl Globulin 3.5 gm/dl Albumin/Globulin Ratio 0.6 Assessment and Plan 88-year-old white female admitted on June 06, 2018 because of bilateral lower extremity cellulitis Bilateral lower extremity cellulitis, right bigger than left. Right lower extremity CT studies has rule out abscess Was having significant pain, which is continued improved Possible sepsis which is supported by leukocytosis, shivering, tachycardia. Follow-up blood culture so far negative Jpglk-dh-agrzxqr kidney injury stage III-IV, stable, will continue follow-up, Closely monitoring renal function, and avoiding often see medication Accelerated hypertension, stable and better, continue hydralazine as needed Minimal elevated troponin at 0.05, likely because of demanding ischemia, history of stone, patient denied chest pain, no EKG changes, History of coronary artery disease, hypertension, sepsis, urinary tract infection, asthma, chronic obstructive pulmonary disease. Blood culture has been negative, patient has been no fever no chills, no leukocytosis, Changed IV antibiotic to oral Levaquin since June 08, 2018, Discontinue IV fluid Ordered pain medicine for pain control, checking vitamin B12 and folic acid, Colace ordered for the over come the side effect of narcotics which may cause constipation PT OT evaluation and treatment, however patient declined OT, and patient declined rehab on his own risk, again he want to take the risk of fall etc. by herself Gastrointestinal prophylaxis and deep vein thrombosis prophylaxis is covered. Physical therapy report nervous benefit from a rehab stay upon [facility] discharge, or 24 hour care if she is planning to return home. , Patient requested e going home with family support, discussed with patient about risk and benefit, patient willing to take on a risk by herself DNR., Possible discharge home tomorrow Continued [facility] stay due to: home environment unsafe for pt Discharge planning: home
[2018-06-09] MEDS: CEROVITE ADV FORMULA TAB PO SCH (19:40)
[2018-06-09] MEDS: CHOLECALCIFEROL 1000 INTER.UNIT TAB PO SCH (19:43)
[2018-06-09 23:07] VITALS: BP 154/82; PULSE 100; TEMP 37.1; O2SAT 95
[2018-06-10] MEDS: LEVOTHYROXINE 50 MCG TAB PO SCH (05:38)
[2018-06-10] MEDS: HYDROCODONE/ACETAMINOPHEN 7.5/325MG TAB PO PRN (05:38)
[2018-06-10 06:03] LABS: BASO % 0.4 %; BASO ABS # 0.02 K/uL (0-0.2); HEMATOCRIT 28.8 % (37-47); HEMOGLOBIN 8.9 g/dL (12.0-16.0); IG# 0.13 K/uL (0.00-0.02); LYMPH % 18.4 %; LYMPH ABS # 1.01 K/uL (1.2-3.4); MEAN CELL VOLUME 92.3 fL (80-100); MEAN CORPUSCULAR HEMOGLOBIN 28.5 pg (25-34); MEAN CORPUSCULAR HGB CONC 30.9 g/dl (32-36); MEAN PLATELET VOLUME 9.4 fL (7.4-10.4); MONO % 11.1 %; MONO ABS # 0.61 K/uL (0.11-0.59); NEUT % 67.7 %; NEUT ABS # 3.73 K/uL (1.4-6.5); PLATELET COUNT 338 K/uL (130-400); RED CELL DISTRIBUTION WIDTH CV 17.1 % (11.5-14.5); RED CELL DISTRIBUTION WIDTH SD 57.4 fL (36.4-46.3)
[2018-06-10 06:36] LABS: CALCIUM 8.3 mg/dl (8.5-10.1); CREATININE 2.11 mg/dl (0.60-1.20); POTASSIUM 4.5 mmol/L (3.5-5.1)
[2018-06-10 07:25] VITALS: BP 141/65; PULSE 90; TEMP 36.7; O2SAT 96
[2018-06-10] MEDS ORDERED: LVQ500 PO (08:06)
[2018-06-10] MEDS: DOCUSATE SODIUM 100 MG CAP PO SCH (08:07)
[2018-06-10] MEDS: ASPIRIN 81 MG ECTAB PO SCH (08:07)
[2018-06-10] MEDS: SACCHAROMYCES BOUL (FLORASTOR) 250 MG CAP PO SCH (08:07)
[2018-06-10] MEDS: TORSEMIDE 20 MG TAB PO SCH (08:07)
--- NOTE | 2018-06-10 08:07 | Discharge Instructions ---
Discharge Instructions Date of Service Jun 10, 2018. Admission Reason for Admission: Cellulitis, Sepsis Discharge Discharge Diagnosis / Problem: Bilateral lower extremity cellulitis Discharge Goals Goal(s): Decrease discomfort, Improve function, Increase independence, Improve disease control, Improve nutritional status, Learn about illness, Diagnostic testing, Therapeutic intervention, Prevent Disease Progression, Specific goals Activity Recommendations Activity Limitations: per Instructions/Follow-up section . Instructions / Follow-Up Instructions / Follow-Up you have Bilateral lower extremity cellulitis, you Aldmr-vs-fahawqc kidney injury stage III-IV, stable, you have anemia you need to have Labs BMP, CBC checked in the follow up visit with pcp in 5-7 days I order Home health care for you to check for therapy at home, call them if you would agree you are in high risks of fall, I recommend rehab, or therapy, however you declined, you need to call pcp if you change your mind - you need to follow up with your primary care physician - take medication as instructed, never overdose or any misuse, or take with alcohol, because misuse of medicine may cause organ damage or , call me , or your primary care physician if have questions of discharge medicaitons. - call your primary care physician, or go to local emergency room if has any fever/chill, chest pain, shortness of breathing, nausea/vomiting/abdominal pain , facial droop/slurry speech/local weakness, or if has any questions. - fall precaution - diet as instructed Current Hospital Diet Patient's current hospital diet: AHA Diet (Heart Healthy) Discharge Diet Recommended Diet: AHA Diet (Heart Healthy) Pending Studies Studies pending at discharge: no Medical Emergencies . Who to Call and When: Medical Emergencies: If at any time you feel your situation is an emergency, please call 911 immediately. . Non-Emergent Contact Non-Emergency issues call your: Primary Care Provider . . "Provider Documentation" section prepared by Maurice Carvalho. .
[2018-06-10] MEDS: MoRPHine SULFATE IR 15 MG TAB (IMMEDIATE RELEASE) PO SCH (08:16)
[2018-06-10] MEDS: DOXEPIN HCL 10 MG CAP PO SCH (09:51)
[2018-06-10 09:52] VITALS: BP 141/65; PULSE 90; TEMP 36.7; O2SAT 96
--- NOTE | 2018-06-10 10:09 | Discharge Summary ---
Discharge Summary Date of Service Jun 10, 2018. Discharge Summary Admission Date: Jun 06, 2018 at 16:21 Discharge Date: Jun 10, 2018 Discharge Disposition: Home with services Principal Diagnosis: Bilateral lower extremity cellulitis, Problems/Secondary Diagnoses: Okjuv-dz-uevwwqs kidney injury stage III-IV, anemia high risks of fall, Immunizations: Have You Had Influenza Vaccine: No History of Tetanus Vaccine?: Yes Tetanus Immunization Date: Apr 06, 2006 History of Pneumococcal: No History of Hepatitis B Vaccine: Unknown Procedures: no Consultations: no Medication Reconciliation New Medications: Levofloxacin (Levofloxacin) 500 Mg Tab 500 MG PO Q2D@1700 for 6 Days, TAB Continued Medications: Albuterol Hfa (Ventolin Hfa) 200 Puffs/81129 Mcg Aers 2-4 PUFFS INH Q6H PRN for Shortness of Breath, #1 INHALER Aspirin (Aspirin Ec) 81 Mg Tab 81 MG PO QAM Cholecalciferol (Vitamin D 1000 Unit) 1,000 Unit Cap 1000 INTER.UNIT PO QPM, CAP Coconut Oil (Bulk) (Coconut Oil) 1 Oil Oil 1 APPLN TOP UD APPLY TO BACK DIRECTED Doxepin Hcl (Sinequan) 10 Mg Cap 10 MG PO AMHS Levothyroxine Sodium (Levothyroxine Sodium) 50 Mcg Tab 50 MCG PO QAM Morphine Sulfate (Morphine Sulfate Ir) 15 Mg Tab 2 TABS PO BID Multiple Vitamins W/ Minerals (Centrum) 1 Tab Tab 1 TAB PO QPM Polyethylene Glycol-Propylene (Systane) 1 Brittney Brittney 1 DROP OP QID PRN for Eye Irritation, ML Prednisone (Prednisone) 5 Mg Tab 5 MG PO QAM Probiotic Product (Align) 4 Mg Cap 4 MG PO DAILY Promethazine Hcl (Phenergan) 25 Mg Tab 25 MG PO Q6H PRN for Nausea, TAB Torsemide (Torsemide) 20 Mg Tab 20 MG PO BID Discharge Exam sitting up in chair, pleasant, no c/o Review of Systems: Constitutional: No fever, No chills, No sweats, No weight loss, No weakness , No fatigue, No problem reported Eyes: No worsening of vision, No eye pain, No redness, No discharge, No diplopia, No problem reported ENT: No hearing loss, No unusual epistaxis, No nasal symptoms, No sore throat, No tinnitus, No dental problems, No trouble swallowing, No problem reported Respiratory: No cough, No sputum, No wheezing, No shortness of breath, No dyspnea on exertion, No dyspnea at rest, No hemoptysis, No problem reported Cardiovascular: No chest pain, No orthopnea, No PND, No edema, No claudication, No palpitations, No problem reported Musculoskeletal: No joint pain, No muscle pain, No swelling, No calf pain, No problem reported Genitourinary - Female: No dysuria, No urinary frequency, No urinary urgency , No urinary incontinence, No urinary retention, No hematuria, No dysmenorrhea, No menorrhagia, No metrorrhagia, No rash, No vaginal bleeding, No vaginal discharge, No vaginal itching, No vulvodynia, No , No problem reported Neurologic: No memory loss, No paralysis, No weakness, No numbness/tingling , No vertigo, No balance problems, No problem reported Psychiatric: No depression symptoms, No anhedonism, No anxiety, No insomnia , No substance abuse, No problem reported Endocrine: No fatigue, No excessive thirst, No excessive urination, No problem reported Integumentary: + problem reported (right anterial skin tear in dressing , it is from POA) Physical Exam: General Appearance: WD/WN, + thin, + pertinent finding (frail) Eyes: normal inspection, PERRL ENT: normal ENT inspection, hearing grossly normal Neck: supple, no adenopathy Respiratory/Chest: chest non-tender, + decreased breath sounds Cardiovascular: regular rate, rhythm, no edema, no gallop, no JVD, no murmur Abdomen / GI: normal bowel sounds, non tender, soft, no organomegaly, no pulsatile mass Extremities: normal inspection, no calf tenderness, + swelling (2 + edema) Skin: + pertinent finding (right anterial skin tear in dressing , it is from POA, james llower exts skin no more red/hot) Hospital Course 88-year-old white female admitted on June 06, 2018 because of bilateral lower extremity cellulitis Bilateral lower extremity cellulitis, right bigger than left. Right lower extremity CT studies has rule out abscess Was having significant pain, continued improved Possible sepsis which is supported by leukocytosis, shivering, tachycardia upon admission. Follow-up blood culture so far negative Dfoym-ab-rojywks kidney injury stage III-IV, stable, will continue follow-up, Closely monitoring renal function, and avoiding often see medication Accelerated hypertension, stable and better, continue hydralazine as needed Minimal elevated troponin at 0.05, likely because of demanding ischemia, history of stone, patient denied chest pain, no EKG changes, History of coronary artery disease, hypertension, sepsis, urinary tract infection, asthma, chronic obstructive pulmonary disease. Blood culture has been negative, patient has been no fever no chills, no leukocytosis, was on vanco zosyn, Changed IV antibiotic to oral Levaquin since June 08, 2018 , total abx will be 10 days, so far 02/13, ordered another 6 days of Levaquin Discontinue IV fluid Ordered pain medicine for pain control, checking vitamin B12 and folic acid, Colace ordered for the over come the side effect of narcotics which may cause constipation PT OT evaluation and treatment, however patient declined OT, and patient declined rehab on his own risk, again he want to take the risk of fall etc. by herself Gastrointestinal prophylaxis and deep vein thrombosis prophylaxis is covered. Physical therapy report nervous benefit from a rehab stay upon [facility] discharge, or 24 hour care if she is planning to return home. , Patient requested e going home with family support, discussed with patient about risk and benefit, patient willing to take on a risk by herself DNR., discharge home today with [facility], advices her to call [facility] to follow up Instructions / Follow-Up you have Bilateral lower extremity cellulitis, you Eswvy-rs-xmujjnc kidney injury stage III-IV, stable, you have anemia you need to have Labs BMP, CBC checked in the follow up visit with pcp in 5-7 days I order Home health care for you to check for therapy at home, call them if you would agree you are in high risks of fall, I recommend rehab, or therapy, however you declined, you need to call pcp if you change your mind - you need to follow up with your primary care physician - take medication as instructed, never overdose or any misuse, or take with alcohol, because misuse of medicine may cause organ damage or , call me , or your primary care physician if have questions of discharge medicaitons. - call your primary care physician, or go to local emergency room if has any fever/chill, chest pain, shortness of breathing, nausea/vomiting/abdominal pain , facial droop/slurry speech/local weakness, or if has any questions. - fall precaution - diet as instructed Total Time Spent: Greater than 30 minutes This includes examination of the patient, discharge planning, medication reconciliation, and communication with other providers. Discharge Instructions Please refer to the electronic Patient Visit Report (Discharge Instructions) for additional information. Additional Copies To Mil Durand M.D.
[2018-06-10] MEDS ORDERED: LEVOFLOXACIN 500 MG TAB PO SCH (17:00)
== END 2018-06-10 10:55 | disposition home health service (06) | DRG 872 ==
LOC: EDBD 13:02 → C.EDA 13:04 → UNDOADMIN 16:21 → C.2E 16:21 → EDBEDREQ 16:31 → ENRESERV 16:32 → C.4E 06-08 18:53
PROVIDERS: ADMIT Hospitalist; ATTEND Hospitalist
DX: A41.9 Sepsis, unspecified organism (principal); L03.115 Cellulitis of right lower limb; L03.116 Cellulitis of left lower limb; N17.9 Acute kidney failure, unspecified; I24.8 Other forms of acute ischemic heart disease; I12.9 Hypertensive chronic kidney disease with stage 1 through stage 4 chronic kidney disease, or unspecified chronic kidney disease; N18.3 Chronic kidney disease, stage 3 (moderate); I25.10 Atherosclerotic heart disease of native coronary artery without angina pectoris; J44.9 Chronic obstructive pulmonary disease, unspecified; G89.29 Other chronic pain; Z66 Do not resuscitate; Z87.440 Personal history of urinary (tract) infections; Z86.19 Personal history of other infectious and parasitic diseases; Z88.0 Allergy status to penicillin; Z88.1 Allergy status to other antibiotic agents; Z88.2 Allergy status to sulfonamides; Z88.5 Allergy status to narcotic agent; Z91.018 Allergy to other foods; Z79.52 Long term (current) use of systemic steroids; Z79.82 Long term (current) use of aspirin; Z79.891 Long term (current) use of opiate analgesic

== ENCOUNTER → 2018-06-14 | Outpatient (CLI) | payer OTHER, MEDICARE ==
[~2018-06-14] MED LIST changes: +BCTROWC; +LVQ500 PO; +SNQ25
[2018-06-14 19:06] LABS: BASO % 0.2 %; BASO ABS # 0.01 K/uL (0-0.2); HEMATOCRIT 31.2 % (37-47); HEMOGLOBIN 9.7 g/dL (12.0-16.0); IG# 0.18 K/uL (0.00-0.02); LYMPH % 15.9 %; LYMPH ABS # 1.03 K/uL (1.2-3.4); MEAN CELL VOLUME 91.8 fL (80-100); MEAN CORPUSCULAR HEMOGLOBIN 28.5 pg (25-34); MEAN CORPUSCULAR HGB CONC 31.1 g/dl (32-36); MEAN PLATELET VOLUME 9.1 fL (7.4-10.4); MONO % 11.3 %; MONO ABS # 0.73 K/uL (0.11-0.59); NEUT % 69.8 %; NEUT ABS # 4.52 K/uL (1.4-6.5); PLATELET COUNT 402 K/uL (130-400); RED CELL DISTRIBUTION WIDTH SD 56.6 fL (36.4-46.3); WHITE BLOOD COUNT 6.47 K/uL (4.8-10.8)
[2018-06-14 19:34] LABS: BLOOD UREA NITROGEN 34 mg/dl (7-18); CALCIUM 8.7 mg/dl (8.5-10.1); CARBON DIOXIDE 30 mmol/L (21-32); CREATININE 2.72 mg/dl (0.60-1.20); GLUCOSE 89 mg/dl (70-99); POTASSIUM 4.1 mmol/L (3.5-5.1); SODIUM 134 mmol/L (136-145)
== END | disposition home or self-care (01) ==
LOC: C.LAB 17:51
PROVIDERS: ATTEND Family Medicine
DX: E87.5 Hyperkalemia (principal); R50.9 Fever, unspecified

== ENCOUNTER 2018-06-23 11:47 | Inpatient (IN) | payer OTHER, MEDICARE ==
[~2018-06-23] VITALS: Ht 142.2 cm; Wt 56.4 kg
[~2018-06-23 11:47] MED LIST changes: -BCTROWC; -SNQ25
[2018-06-23] MEDS ORDERED: SODIUM CHLORIDE 0.9% 1000ML 1,000 ML IV STA (12:10)
[2018-06-23] MEDS ORDERED: ONDANSETRON INJ 2 MG/ML 2 ML VIAL IV STA (12:10)
[2018-06-23 12:45] LABS: BASO % 0.1 %; BASO ABS # 0.01 K/uL (0-0.2); HEMATOCRIT 36.3 % (37-47); HEMOGLOBIN 11.2 g/dL (12.0-16.0); IG# 0.06 K/uL (0.00-0.02); LYMPH % 5.2 %; MEAN CELL VOLUME 92.4 fL (80-100); MEAN CORPUSCULAR HEMOGLOBIN 28.5 pg (25-34); MEAN CORPUSCULAR HGB CONC 30.9 g/dl (32-36); MEAN PLATELET VOLUME 8.8 fL (7.4-10.4); MONO % 4.5 %; NEUT % 89.8 %; NEUT ABS # 12.03 K/uL (1.4-6.5); PLATELET COUNT 339 K/uL (130-400); RED CELL DISTRIBUTION WIDTH CV 16.7 % (11.5-14.5); RED CELL DISTRIBUTION WIDTH SD 56.6 fL (36.4-46.3)
--- NOTE | 2018-06-23 12:51 | DIAGNOSTIC IMAGING REPORT ---
CHEST ONE VIEW PORTABLE CLINICAL HISTORY: 88 years-old Female presenting with EVALUATE ALTERED MENTAL STATUS/WEAKNESS. TECHNIQUE: Portable upright AP view of the chest was obtained. COMPARISON: 06/06/2018. FINDINGS: Atherosclerosis of the aortic arch. Cardiac silhouette top normal in size. Minimal basilar opacities. No pleural effusion or pneumothorax. Chronic posttraumatic deformity of the proximal to mid diaphysis of the right humerus. Upper abdomen normal. IMPRESSION: 1. Minimal basilar opacities likely atelectasis or scarring. No convincing evidence of acute cardiopulmonary disease. Electronically signed by: Darío Wilson M.D. 06/23/2018 12:50 PM Dictated Date/Time: 06/23/2018 12:49 PM
[2018-06-23 13:07] LABS: PTT PATIENT 24.1 SECONDS (21.0-31.0)
--- NOTE | 2018-06-23 13:14 | DIAGNOSTIC IMAGING REPORT ---
ABD/PELVIS NO IV OR ORAL CONT CLINICAL HISTORY: 88 years-old Female presenting with vomiting, nausea. TECHNIQUE: Multidetector CT of the abdomen and pelvis was performed without the use of intravenous contrast. IV contrast: None. A dose lowering technique was used consistent with the principles of ALARA (as low as reasonably achievable). COMPARISON: 05/27/2018. CT DOSE (mGy.cm): The estimated cumulative dose is 236.40 mGy.cm. FINDINGS: Client Care Specialist topogram: Unremarkable. Lung bases: Minimal basilar opacities, likely atelectasis. Solid 3 mm nodule in the lingula (series 3 image 21), unchanged. Normal heart size. Coronary artery calcification. No pericardial or pleural effusion. Liver: Normal morphology. Normal density. Parenchymal calcifications may suggest a history of granulomatous infection. Biliary: Mild biliary ductal prominence likely a reservoir effect in the post cholecystectomy state. Gallbladder surgically absent. Pancreas: Mild parenchymal atrophy. Spleen: Punctate parenchymal calcifications may suggest a history of chronic granulomas infection. Adrenal glands: Normal noncontrast appearance. Kidneys and ureters: Extrarenal pelvis noted on the right. No hydronephrosis. No nephrolithiasis. Ureters grossly normal. Bladder: Configuration of the bladder suggests ligamentous laxity. Otherwise normal. Pelvic organs: Complex left adnexal cystic lesion measures 3.6 cm in diameter and is unchanged in size and appearance from prior. This remains unexpected in the postmenopausal female. Bowel: Diverticulosis of the mid to distal sigmoid colon. Allowing for underdistention, there is evidence of colonic wall thickening of the mid to distal transverse through the descending colon. There is mild pericolonic fat stranding. No bowel obstruction. No pneumatosis. Peritoneal cavity: No free fluid or intraperitoneal gas. Lymph nodes: No gross lymphadenopathy allowing for noncontrast technique. Vasculature: Atherosclerosis of the normal caliber abdominal aorta. Abdominal wall: Fat-containing ventral hernias, the largest in the periumbilical region. Musculoskeletal: Degenerative changes of the spine. Interval development of an endplate compression deformity at the inferior endplate of L1, which is new from prior. There is no significant osteopenia by CT criteria. No retropulsion of fracture fragments. IMPRESSION: 1. Interval development of significant wall thickening of the mid to distal transverse colon through the descending colon. This distribution is worrisome for an ischemic colitis. Evaluation for ischemic colitis is limited in the absence of intravenous contrast. No pneumatosis or free air. Alternatively, this may represent infectious colitis. 2. Interval development of an inferior endplate fracture deformity of L1. This is new since the most recent CT from May. 3. Complex left ovarian cystic lesion. Neoplasm cannot excluded. Pelvic ultrasound should be obtained on a nonurgent basis of this has not are ready occurred. 4. Evidence of prior granulomas infection. 5. Solid 3 mm lingula nodule, stable since at least 2015 consistent with benign etiology. Electronically signed by: Darío Wilson M.D. 06/23/2018 1:13 PM Dictated Date/Time: 06/23/2018 1:03 PM
[2018-06-23] MEDS ORDERED: BCTROWC (13:18)
[2018-06-23] MEDS ORDERED: SNQ25 (13:18)
[2018-06-23 13:21] LABS: CALCIUM 9.2 mg/dl (8.5-10.1); CREATININE 2.24 mg/dl (0.60-1.20); POTASSIUM 3.2 mmol/L (3.5-5.1); TOTAL PROTEIN 6.7 gm/dl (6.4-8.2)
--- NOTE | 2018-06-23 13:38 | EMERGENCY ROOM VISIT NOTE ---
History Report prepared by Tiffanyibkelsey: Lexis Ridley Under the Supervision of: Ronit StonerO. First contact with patient: 12:07 Chief Complaint: VOMITING Stated Complaint: VOMIT/DIARRHEA Nursing Triage Summary: Patient presents to ed via BLS from home with complaints of N/V/D. PT reports taking a laxative last evening due to constipation and now is having diarrhea. PT reports chronic back pain 07/16. History of Present Illness The patient is a 88 year old female who presents to the Emergency Room with complaints of constant vomiting that onset last night. The patient saw her PCP a few days ago who prescribed her a laxative. She notes that she took a laxative and now has problems with diarrhea and vomiting. The patient complains of abdominal pain, pain on her tailbone, and nausea. Source of History: patient Onset: last night Position: abdomen Timing: constant Associated Symptoms: + nausea, + vomiting, + diarrhea Note: The patient complains of pain in her tailbone. Review of Systems See HPI for pertinent positives & negatives. A total of 10 systems reviewed and were otherwise negative. Past Medical & Surgical Medical Problems: (1) abdominal pain (2) Acute kidney injury superimposed on chronic kidney disease (3) Asthma (4) Asthma exacerbation (5) C. difficile colitis (6) C. 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 (18) Fall (19) Fracture of left distal radius (20) Hyperkalemia, diminished renal excretion (21) Hyperphosphatemia (22) Hypertension (23) Hypertension (24) Ischemic colitis (25) Left arm swelling (26) Left leg cellulitis (27) Left leg cellulitis (28) Left radial head fracture (29) Nausea and vomiting (30) Noninfected skin tear of left leg (31) Sepsis (32) Shortness of breath (33) Stable angina (34) Urinary tract infection (35) Wheezing Surgical Problems: (1) H/O: hysterectomy (2) S/P appendectomy (3) S/P cholecystectomy Family History FH: heart disease Hypertension Kidney disease Kidney stones Myocardial infarction Prostate cancer Social History Smoking Status: Never Smoker Alcohol Use: none Drug Use: none Marital Status: Housing Status: lives with family Occupation Status: retired Current/Historical Medications Scheduled Aspirin (Aspirin Ec), 81 MG PO QAM Cholecalciferol (Vitamin D 1000 Unit), 1,000 INTER.UNIT PO QPM Coconut Oil (Bulk) (Coconut Oil), 1 APPLN TOP UD Doxepin Hcl (Sinequan), 10 MG PO AMHS Levothyroxine Sodium (Levothyroxine Sodium), 50 MCG PO QAM Morphine Sulfate (Morphine Sulfate Ir), 2 TABS PO BID Multiple Vitamins W/ Minerals (Centrum), 1 TAB PO QPM Prednisone (Prednisone), 5 MG PO QAM Probiotic Product (Align), 4 MG PO DAILY Torsemide (Torsemide), 20 MG PO BID Scheduled PRN Albuterol Hfa (Ventolin Hfa), 2-4 PUFFS INH Q6H PRN for Shortness of Breath Polyethylene Glycol-Propylene (Systane), 1 DROP OP QID PRN for Eye Irritation Miscellaneous Medications Doxepin HCl (Doxepin HCl) Mupirocin (Bactroban 2% Oint) Allergies Coded Allergies: Codeine (Verified Allergy, Mild, 06/23/18) Penicillins (Verified Allergy, Mild, ., 06/23/18) tolerated cefepime Erythromycin (Verified Allergy, Unknown, ., 06/23/18) Sulfa Antibiotics (Verified Allergy, Unknown, Unknown, 06/23/18) Banana (Verified Adverse Reaction, Mild, GI symptoms, 06/23/18) Cantaloupe (Verified Adverse Reaction, Mild, GI SYMPTOMS FROM UNSPECIFIED MELONS, 06/23/18) Physical Exam Vital Signs Date Time Temp Pulse Resp B/P (MAP) Pulse Ox O2 Delivery O2 Flow Rate FiO2 06/23/18 18:47 96 16 100 Nasal Cannula 3.0 06/23/18 16:45 104 16 135/58 100 Nasal Cannula 3.0 06/23/18 16:07 98 06/23/18 14:15 102 147/69 06/23/18 13:44 37.1 102 26 152/70 99 Nasal Cannula 3.0 06/23/18 12:56 94 Nasal Cannula 2.0 06/23/18 12:55 Room Air 06/23/18 12:55 92 Room Air 06/23/18 12:07 100 06/23/18 11:55 37.2 103 18 159/102 97 Room Air Physical Exam GENERAL: Patient is awake, alert, and anxious appearing. EYES: The conjunctivae are clear. The pupils are round and reactive. EARS, NOSE, MOUTH AND THROAT: Mucus membranes are dry. NECK: The neck is nontender and supple. RESPIRATORY: Normal respiratory effort is noted. There is no evidence of wheezing rhonchi or rales to auscultation. CARDIOVASCULAR: Tachycardic and irregular. No definite murmurs. GASTROINTESTINAL: Mildly distended with left sided tenderness to palpitation. No guarding or rigidity. MUSCULOSKELETAL/EXTREMITIES: There is no evidence of gross deformity. Full range of motion is noted in the hips and shoulders. SKIN: Edema in both lower extremities with blade stasis changes and compression wraps in place. NEUROLOGIC: Patient is awake alert and oriented x3. Medical Decision & Procedures ER Provider Diagnostic Interpretation: Radiology results as stated below per my review and radiologist interpretation: CHEST ONE VIEW PORTABLE CLINICAL HISTORY: 88 years-old Female presenting with EVALUATE ALTERED MENTAL STATUS/WEAKNESS. TECHNIQUE: Portable upright AP view of the chest was obtained. COMPARISON: 06/06/2018. FINDINGS: Atherosclerosis of the aortic arch. Cardiac silhouette top normal in size. Minimal basilar opacities. No pleural effusion or pneumothorax. Chronic posttraumatic deformity of the proximal to mid diaphysis of the right humerus. Upper abdomen normal. IMPRESSION: 1. Minimal basilar opacities likely atelectasis or scarring. No convincing evidence of acute cardiopulmonary disease. Electronically signed by: Darío Wilson M.D. 06/23/2018 12:50 PM Dictated Date/Time: 06/23/2018 12:49 PM ABD/PELVIS NO IV OR ORAL CONT CLINICAL HISTORY: 88 years-old Female presenting with vomiting, nausea. TECHNIQUE: Multidetector CT of the abdomen and pelvis was performed without the use of intravenous contrast. IV contrast: None. A dose lowering technique was used consistent with the principles of ALARA (as low as reasonably achievable). COMPARISON: 05/27/2018. CT DOSE (mGy.cm): The estimated cumulative dose is 236.40 mGy.cm. 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 Lung bases: Minimal basilar opacities, likely atelectasis. Solid 3 mm nodule in the lingula (series 3 image 21), unchanged. Normal heart size. Coronary artery calcification. No pericardial or pleural effusion. Liver: Normal morphology. Normal density. Parenchymal calcifications may suggest a history of granulomatous infection. Biliary: Mild biliary ductal prominence likely a reservoir effect in the post cholecystectomy state. Gallbladder surgically absent. Pancreas: Mild parenchymal atrophy. Spleen: Punctate parenchymal calcifications may suggest a history of chronic granulomas infection. Adrenal glands: Normal noncontrast appearance. Kidneys and ureters: Extrarenal pelvis noted on the right. No hydronephrosis. No nephrolithiasis. Ureters grossly normal. Bladder: Configuration of the bladder suggests ligamentous laxity. Otherwise normal. Pelvic organs: Complex left adnexal cystic lesion measures 3.6 cm in diameter and is unchanged in size and appearance from prior. This remains unexpected in the postmenopausal female. Bowel: Diverticulosis of the mid to distal sigmoid colon. Allowing for underdistention, there is evidence of colonic wall thickening of the mid to distal transverse through the descending colon. There is mild pericolonic fat stranding. No bowel obstruction. No pneumatosis. Peritoneal cavity: No free fluid or intraperitoneal gas. Lymph nodes: No gross lymphadenopathy allowing for noncontrast technique. Vasculature: Atherosclerosis of the normal caliber abdominal aorta. Abdominal wall: Fat-containing ventral hernias, the largest in the periumbilical region. Musculoskeletal: Degenerative changes of the spine. Interval development of an endplate compression deformity at the inferior endplate of L1, which is new from prior. There is no significant osteopenia by CT criteria. No retropulsion of fracture fragments. IMPRESSION: 1. Interval development of significant wall thickening of the mid to distal transverse colon through the descending colon. This distribution is worrisome for an ischemic colitis. Evaluation for ischemic colitis is limited in the absence of intravenous contrast. No pneumatosis or free air. Alternatively, this may represent infectious colitis. 2. Interval development of an inferior endplate fracture deformity of L1. This is new since the most recent CT from May. 3. Complex left ovarian cystic lesion. Neoplasm cannot excluded. Pelvic ultrasound should be obtained on a nonurgent basis of this has not are ready occurred. 4. Evidence of prior granulomas infection. 5. Solid 3 mm lingula nodule, stable since at least 2015 consistent with benign etiology. Electronically signed by: Darío Wilson M.D. 06/23/2018 1:13 PM Dictated Date/Time: 06/23/2018 1:03 PM DUPLEX MESENTERIC CLINICAL HISTORY: 88 years-old Female presenting with pain. TECHNIQUE: Real-time grayscale and color and spectral Doppler ultrasound imaging of the aorta and mesenteric vessels was performed. COMPARISON: Noncontrast CT performed earlier today. FINDINGS: Aorta: Patent. Normal waveform. Peak systolic velocity 148 cm/s. Celiac axis: Patent although there is aliasing at the origin with significant elevation of systolic velocity, implying stenosis. Peak systolic velocity 415 cm/s. Hepatic artery: Not assessed. Splenic artery: Not assessed. Superior mesenteric artery: Patent although there is aliasing at the origin. Peak systolic velocity 275 cm/s at the origin, 328 cm/s proximally, 365 cm/s in the midportion, and 187 cm/s distally. There is loss of diastolic flow in the distal portion. Inferior mesenteric artery: Not assessed. Reference ranges: Celiac artery: PSV ? 240 cm/s suggests stenosis ? 50%; PSV ? 320 cm/s suggests stenosis ? 70%. Superior mesenteric artery: PSV ? 295 cm/s suggests stenosis ? 50%; PSV ? 400 cm/s suggests stenosis ? 70%. IMPRESSION: 1. 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 2. 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 Notably, loss of diastolic flow in the distal SMA. Electronically signed by: Darío Wilson M.D. 06/23/2018 4:07 PM Dictated Date/Time: 06/23/2018 4:03 PM Laboratory Results 06/23/18 12:30 Red Blood Count 3.93, Mean Corpuscular Volume 92.4, Mean Corpuscular Hemoglobin 28.5, Mean Corpuscular Hemoglobin Concent 30.9, Mean Platelet Volume 8.8, Neutrophils (%) (Auto) 89.8, Lymphocytes (%) (Auto) 5.2, Monocytes (%) (Auto) 4.5, Eosinophils (%) (Auto) 0.0, Basophils (%) (Auto) 0.1, Neutrophils # (Auto) 12.03, Lymphocytes # (Auto) 0.70, Monocytes # (Auto) 0.60, Eosinophils # (Auto) 0.00, Basophils # (Auto) 0.01 06/23/18 12:30 Test 06/23/18 12:30 06/23/18 18:52 White Blood Count 13.40 K/uL (4.8-10.8) Red Blood Count 3.93 M/uL (4.2-5.4) Hemoglobin 11.2 g/dL (12.0-16.0) Hematocrit 36.3 % (37-47) Mean Corpuscular Volume 92.4 fL (80-100) Mean Corpuscular Hemoglobin 28.5 pg (25-34) Mean Corpuscular Hemoglobin Concent 30.9 g/dl (32-36) Platelet Count 339 K/uL (130-400) Mean Platelet Volume 8.8 fL (7.4-10.4) Neutrophils (%) (Auto) 89.8 % Lymphocytes (%) (Auto) 5.2 % Monocytes (%) (Auto) 4.5 % Eosinophils (%) (Auto) 0.0 % Basophils (%) (Auto) 0.1 % Neutrophils # (Auto) 12.03 K/uL (1.4-6.5) Lymphocytes # (Auto) 0.70 K/uL (1.2-3.4) Monocytes # (Auto) 0.60 K/uL (0.11-0.59) Eosinophils # (Auto) 0.00 K/uL (0-0.5) Basophils # (Auto) 0.01 K/uL (0-0.2) RDW Standard Deviation 56.6 fL (36.4-46.3) RDW Coefficient of Variation 16.7 % (11.5-14.5) Immature Granulocyte % (Auto) 0.4 % Immature Granulocyte # (Auto) 0.06 K/uL (0.00-0.02) Prothrombin Time 10.0 SECONDS (9.0-12.0) Prothromb Time International Ratio 1.0 (0.9-1.1) Activated Partial Thromboplast Time 24.1 SECONDS (21.0-31.0) Partial Thromboplastin Ratio 0.9 Anion Gap 9.0 mmol/L (3-11) Est Creatinine Clear Calc Drug Dose 12.1 ml/min Estimated GFR () 22.0 Estimated GFR (Non- 19.0 BUN/Creatinine Ratio 14.1 (10-20) Calcium Level 9.2 mg/dl (8.5-10.1) Magnesium Level 2.7 mg/dl (1.8-2.4) Total Bilirubin 0.9 mg/dl (0.2-1) Direct Bilirubin 0.3 mg/dl (0-0.2) Aspartate Amino Transf (AST/SGOT) 18 U/L (15-37) Alanine Aminotransferase (ALT/SGPT) 13 U/L (12-78) Alkaline Phosphatase 51 U/L (45-117) Troponin I 0.055 ng/ml (0-0.045) Total Protein 6.7 gm/dl (6.4-8.2) Albumin 3.0 gm/dl (3.4-5.0) Amylase Level 53 U/L (25-115) Lipase 77 U/L (73-393) Thyroid Stimulating Hormone (TSH) 0.749 uIu/ml (0.300-4.500) Lactic Acid Level 1.1 mmol/L (0.4-2.0) Laboratory results per my review. Medications Administered Medications (Trade) Dose Ordered Sig/Zack Route Start Time Stop Time Status Last Admin Dose Admin Ondansetron HCl (Zofran Inj) 4 mg NOW STAT IV 06/23/18 12:10 06/23/18 12:12 DC 06/23/18 12:55 4 MG Sodium Chloride 1,000 ml @ 999 mls/hr Q1H1M STAT IV 06/23/18 12:10 06/23/18 13:10 DC 06/23/18 12:54 999 MLS/HR Fentanyl Citrate (Fentanyl Inj) 25 mcg NOW STAT IV 06/23/18 15:07 06/23/18 15:08 DC 06/23/18 15:19 25 MCG ECG Per My Interpretation Indication: abdominal pain Rate (beats per minute): 102 Rhythm: sinus tachycardia Findings: PAC Change: no significant change Change: No significant change from 06/06/18. ED Course 1207: The patient was evaluated in room C10. A complete history and physical examination were performed. 1210: Ordered NSS 1,000 ml @ 999 mls/hr IV, Zofran Inj 4 mg IV. 1507: Ordered Fentanyl Inj 25 mcg IV. 1533: Upon reevaluation, the patient is resting comfortably. 1600: I discussed the patient's case with Dr. Mcclure- Hospitalist [facility]. The patient will be evaluated for further management. 1644: I discussed the patient's case with Dr Correia- Vascular Surgery. He recommends medical management and surgical management only if it becomes worse. The patient will be evaluated for further management. 1645: I discussed the patient's case with Dr. Mcclure- Viviana [facility]. The patient will be evaluated for further management. The patient will be evaluated for further management. Medical Decision Prior records/ancillary studies reviewed. Triage Nursing notes reviewed. The patient's history was concerning for abdominal pain. Differential diagnosis: Etiologies such as appendicitis, diverticulitis, PUD, biliary pathology, UTI, pancreatitis, obstruction, mesenteric ischemia, aortic pathology, infections, inflammatory bowel disease, renal colic, as well as others were entertained. The patient is an 88-year-old female who presented to the emergency department with epigastric pain nausea and vomiting. The patient states that she has been experiencing constipation. She saw her primary care physician earlier in the week. He advised that the patient use a laxative if her symptoms did not improve in 48 hours. The patient tried using a laxative but then had severe diarrhea followed by nausea and vomiting which was very pronounced. The patient called the ambulance and was brought to the emergency department. The patient had significant left-sided abdominal pain on palpation but no guarding or rigidity. The patient has an elevated creatinine so a noncontrasted CAT scan was obtained. This revealed signs of possible intestinal ischemia. Ultrasound was obtained which confirmed very severe atherosclerotic changes to the visceral blood supply. The patient was treated with IV fluids as well as pain medication in the emergency department. She was also treated with IV Zofran. I discussed the patient's laboratory and radiographic studies with her. I also discussed her case with the on-call vascular surgeon as well as the on-call [facility] hospitalist. At this time the patient would likely benefit from medical management. The patient is to be evaluated by the hospitalist for further management and disposition. Medication Reconcilliation Current Medication List: was personally reviewed by me Blood Pressure Screening Patient's blood pressure: Normal blood pressure Consults Time Called: 1550 Consulting Physician: Dr. Claudia Michelle [facility]. Returned Call: 1600 1600: I discussed the patient's case with Dr. Claudia Michelle [facility]. The patient will be evaluated for further management. Additional Consults: Time Called: 1640 Consulted Physician: Dr Correia- Vascular Surgery Returned Call: 1644 Additional Comments: 164: I discussed the patient's case with Dr Correia- Vascular Surgery. He recommends medical management and surgical management only if it becomes worse. The patient will be evaluated for further management. Time Called: 1643 [facility] Returned Call: 1644 Additional Comments: 1644: I discussed the patient's [facility]. The patient will be evaluated for further management. Impression Primary Impression: Acute pain of right lower extremity Additional Impressions: Nausea & vomiting LLQ abdominal pain Ischemia, intestine Scribe Attestation The scribe's documentation has been prepared under my direction and personally reviewed by me in its entirety. I confirm that the note above accurately reflects all work, treatment, procedures, and medical decision making performed by me. Departure Information Dispostion Being Evaluated By Hospitalist Referrals Mil Durand M.D. (PCP) Forms HOME CARE DOCUMENTATION FORM, IMPORTANT VISIT INFORMATION Patient Instructions My [facility] Problem Qualifiers Additional Impressions: Nausea & vomiting Vomiting type: unspecified Vomiting Intractability: non-intractable Qualified Codes: R11.2 - Nausea with vomiting, unspecified
[2018-06-23] MEDS ORDERED: FENTANYL CITRATE INJ 50 MCG/1 ML 2 ML VIAL IV STA ×2 (15:07→19:32)
--- NOTE | 2018-06-23 16:09 | DIAGNOSTIC IMAGING REPORT ---
DUPLEX MESENTERIC CLINICAL HISTORY: 88 years-old Female presenting with pain. TECHNIQUE: Real-time grayscale and color and spectral Doppler ultrasound imaging of the aorta and mesenteric vessels was performed. COMPARISON: Noncontrast CT performed earlier today. FINDINGS: Aorta: Patent. Normal waveform. Peak systolic velocity 148 cm/s. Celiac axis: Patent although there is aliasing at the origin with significant elevation of systolic velocity, implying stenosis. Peak systolic velocity 415 cm/s. Hepatic artery: Not assessed. Splenic artery: Not assessed. Superior mesenteric artery: Patent although there is aliasing at the origin. Peak systolic velocity 275 cm/s at the origin, 328 cm/s proximally, 365 cm/s in the midportion, and 187 cm/s distally. There is loss of diastolic flow in the distal portion. Inferior mesenteric artery: Not assessed. Reference ranges: Celiac artery: PSV ? 240 cm/s suggests stenosis ? 50%; PSV ? 320 cm/s suggests stenosis ? 70%. Superior mesenteric artery: PSV ? 295 cm/s suggests stenosis ? 50%; PSV ? 400 cm/s suggests stenosis ? 70%. IMPRESSION: 1. 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 2. 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 Notably, loss of diastolic flow in the distal SMA. Electronically signed by: Darío Wilson M.D. 06/23/2018 4:07 PM Dictated Date/Time: 06/23/2018 4:03 PM
--- NOTE | 2018-06-23 18:08 | History and Physical ---
History & Physical Date & Time of Service: Jun 23, 2018 at 17:55 Chief Complaint: Vomit/Diarrhea Primary Care Physician: Mil Durand M.D. History of Present Illness Source: patient, hospital records, other 88 y/o F Hx CAD, [place], HTN, anxiety, benign essential tremor, hypothyroidism, CKD IV, LE edema, GERD, chronic troponin elevation. Recent admissions for UTI, sepsis and AMS. She has a prior history of C diff as well. She presents with fever, abdominal pain, nausea, vomiting and diarrhea. Recently, the pt has not been able to tolerate a sufficient amount of PO intake. She felt that she was constipated the prior evening and took a laxative. This AM she began to vomit and then had diarrhea. She has mild abdominal pain only. A CT of the abdomen was obtained followed by a mesenteric US. 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 Additionally, her daughters state that her distal lower extremities have become erythematous and warm over the past 2 days. She was recently treated for cellulitis with Levaquin. Past Medical/Surgical History 1) CAD/[place] 2) HTN 3) Anxiety disorder 4) Essential tremor 5) Hypothyroidism 6) CKD IV 7) Chronic troponin elevation 8) C. diff colitis 9) Mobitz type II Surgical: 1) Hysterectomy 2) Appendectomy 3) Cholecystectomy Family History FH: heart disease Hypertension Kidney disease Kidney stones Myocardial infarction Prostate cancer Social History Resides in assisted living - daughters participate in care - does not drink or smoke Smoking Status: Never Smoker Drug Use: none Marital Status: Housing status: lives with family Occupational Status: retired Immunizations History of Influenza Vaccine: No History of Tetanus Vaccine?: Yes Tetanus Immunization Date: Apr 06, 2006 History of Pneumococcal: No History of Hepatitis B Vaccine: Unknown Allergies Coded Allergies: Codeine (Verified Allergy, Mild, 06/23/18) Penicillins (Verified Allergy, Mild, ., 06/23/18) tolerated cefepime Erythromycin (Verified Allergy, Unknown, ., 06/23/18) Sulfa Antibiotics (Verified Allergy, Unknown, Unknown, 06/23/18) Banana (Verified Adverse Reaction, Mild, GI symptoms, 06/23/18) Cantaloupe (Verified Adverse Reaction, Mild, GI SYMPTOMS FROM UNSPECIFIED MELONS, 8/18/18) Home Medications Scheduled Aspirin (Aspirin Ec), 81 MG PO QAM Cholecalciferol (Vitamin D 1000 Unit), 1,000 INTER.UNIT PO QPM Coconut Oil (Bulk) (Coconut Oil), 1 APPLN TOP UD Doxepin Hcl (Sinequan), 10 MG PO AMHS Levothyroxine Sodium (Levothyroxine Sodium), 50 MCG PO QAM Morphine Sulfate (Morphine Sulfate Ir), 2 TABS PO BID Multiple Vitamins W/ Minerals (Centrum), 1 TAB PO QPM Prednisone (Prednisone), 5 MG PO QAM Probiotic Product (Align), 4 MG PO DAILY Torsemide (Torsemide), 20 MG PO BID Scheduled PRN Albuterol Hfa (Ventolin Hfa), 2-4 PUFFS INH Q6H PRN for Shortness of Breath Polyethylene Glycol-Propylene (Systane), 1 DROP OP QID PRN for Eye Irritation Miscellaneous Medications Doxepin HCl (Doxepin HCl) Mupirocin (Bactroban 2% Oint) Review of Systems Constitutional: + weight loss, + problem reported (poor appetite or phagophobia ), No fever, No chills, No sweats Eyes: No worsening of vision ENT: No hearing loss, No unusual epistaxis, No nasal symptoms Respiratory: No cough, No sputum, No wheezing Cardiovascular: No chest pain, No orthopnea, No PND Abdomen: + pain, + nausea, + vomiting, + diarrhea Musculoskeletal: No joint pain Genitourinary - Female: No dysuria, No urinary frequency Neurologic: No memory loss, No paralysis Psychiatric: No depression symptoms Endocrine: No fatigue Hematologic / Lymphatic: No abnormal bleeding/bruising Integumentary: No rash Allergic / Immunologic: No environmental allergies Physical Exam Vital Signs Date Time Temp Pulse Resp B/P (MAP) Pulse Ox O2 Delivery O2 Flow Rate FiO2 06/23/18 16:45 104 16 135/58 100 Nasal Cannula 3.0 06/23/18 16:07 98 06/23/18 14:15 102 147/69 06/23/18 13:44 37.1 102 26 152/70 99 Nasal Cannula 3.0 06/23/18 12:56 94 Nasal Cannula 2.0 06/23/18 12:55 Room Air 06/23/18 12:55 92 Room Air 06/23/18 12:07 100 06/23/18 11:55 37.2 103 18 159/102 97 Room Air General Appearance: WD/WN, no apparent distress, + pertinent finding (Pale- appearing, talkative, elderly female in no distress) Head: normocephalic Eyes: normal inspection ENT: normal ENT inspection, pharynx normal Neck: supple, no JVD Respiratory/Chest: chest non-tender, lungs clear, normal breath sounds Cardiovascular: regular rate, rhythm Diagnostics Laboratory Results Results Past 24 Hours Test 06/23/18 12:30 Range/Units White Blood Count 13.40 4.8-10.8 K/uL Red Blood Count 3.93 4.2-5.4 M/uL Hemoglobin 11.2 12.0-16.0 g/dL Hematocrit 36.3 37-47 % Mean Corpuscular Volume 92.4 80-100 fL Mean Corpuscular Hemoglobin 28.5 25-34 pg Mean Corpuscular Hemoglobin Concent 30.9 32-36 g/dl Platelet Count 339 130-400 K/uL Mean Platelet Volume 8.8 7.4-10.4 fL Neutrophils (%) (Auto) 89.8 % Lymphocytes (%) (Auto) 5.2 % Monocytes (%) (Auto) 4.5 % Eosinophils (%) (Auto) 0.0 % Basophils (%) (Auto) 0.1 % Neutrophils # (Auto) 12.03 1.4-6.5 K/uL Lymphocytes # (Auto) 0.70 1.2-3.4 K/uL Monocytes # (Auto) 0.60 0.11-0.59 K/uL Eosinophils # (Auto) 0.00 0-0.5 K/uL Basophils # (Auto) 0.01 0-0.2 K/uL RDW Standard Deviation 56.6 36.4-46.3 fL RDW Coefficient of Variation 16.7 11.5-14.5 % Immature Granulocyte % (Auto) 0.4 % Immature Granulocyte # (Auto) 0.06 0.00-0.02 K/uL Prothrombin Time 10.0 9.0-12.0 SECONDS Prothromb Time International Ratio 1.0 0.9-1.1 Activated Partial Thromboplast Time 24.1 21.0-31.0 SECONDS Partial Thromboplastin Ratio 0.9 Sodium Level 137 136-145 mmol/L Potassium Level 3.2 3.5-5.1 mmol/L Chloride Level 96 98-107 mmol/L Carbon Dioxide Level 32 21-32 mmol/L Anion Gap 9.0 3-11 mmol/L Blood Urea Nitrogen 32 7-18 mg/dl Creatinine 2.24 0.60-1.20 mg/dl Est Creatinine Clear Calc Drug Dose 12.1 ml/min Estimated GFR () 22.0 Estimated GFR (Non- 19.0 BUN/Creatinine Ratio 14.1 10-20 Random Glucose 127 70-99 mg/dl Calcium Level 9.2 8.5-10.1 mg/dl Magnesium Level 2.7 1.8-2.4 mg/dl Total Bilirubin 0.9 0.2-1 mg/dl Direct Bilirubin 0.3 0-0.2 mg/dl Aspartate Amino Transf (AST/SGOT) 18 15-37 U/L Alanine Aminotransferase (ALT/SGPT) 13 12-78 U/L Alkaline Phosphatase 51 45-117 U/L Troponin I 0.055 0-0.045 ng/ml Total Protein 6.7 6.4-8.2 gm/dl Albumin 3.0 3.4-5.0 gm/dl Lipase 77 73-393 U/L Thyroid Stimulating Hormone (TSH) 0.749 0.300-4.500 uIu/ml Diagnostic Radiology Doppler US abdomen 1. 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 2. 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 Notably, loss of diastolic flow in the distal SMA. CT abdomen: 1. Interval development of significant wall thickening of the mid to distal, transverse colon through the descending colon. This distribution is worrisome for an ischemic colitis. Evaluation for ischemic colitis is limited in the absence of intravenous contrast. No pneumatosis or free air. Alternatively, this may represent infectious colitis. 2. Interval development of an inferior endplate fracture deformity of L1. This is new since the most recent CT from May. 3. Complex left ovarian cystic lesion. Neoplasm cannot excluded. 4. Evidence of prior granulomas infection. 5. Solid 3 mm lingula nodule, stable since at least 2015 consistent with benign etiology. EKG Irreg sinus tach, PACs, L axis, lat inversions - no significant change from previous Impression Assessment and Plan 88 y/o F Hx CAD, [place], HTN, anxiety, benign essential tremor, hypothyroidism, CKD IV, LE edema, GERD, chronic troponin elevation. Recent admissions for UTI, sepsis and AMS. She has a prior history of C diff as well. She presents with fever, abdominal pain, nausea, vomiting and diarrhea. Recently, the pt has not been able to tolerate a sufficient amount of PO intake. She felt that she was constipated the prior evening and took a laxative. This AM she began to vomit and then had diarrhea. She has mild abdominal pain only. A CT of the abdomen was obtained followed by a mesenteric US. 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 Additionally, her daughters state that her distal lower extremities have become erythematous and warm over the past 2 days. She was recently treated for cellulitis with Levaquin. 1) Nausea/vomiting/diarrhea/abdominal pain - concern for ischemia. We will check for C diff considering her recent history. A lactic is pending on admission. At present, she does not have a peritoneal sign or significant abdominal pain, or evidence of pneumatosis or portal vein gas. We will place her on bowel rest, IVF, antiemetics and analgesics as needed. We will consult surgery in the event she requires intervention. She will receive antibiotics so we will place her on oral Vanc pending C diff results considering her recent history. Regarding her weight loss and possible phagophobia, there may be some evidence for prandial or long-acting nitrate use if this is due to ischemia. This can be evaluated prior to DC. 2) Recurrent cellulitis is likely on exam - as she may benefit from antibiotics due to ischemic colitis, we will place her on Cefepime as above. 3) CAD - trop is at baseline. No acute changes are seen on EKG. 4) CKD - creat/GFR are at baseline - IVF provided overnight. 5) HTN, LE edema - we are holding her Torsemide and providing IVF. I will place her PRN Hydralazine which has the added benefit of vasoldilation. Full code - Heparin prophylaxis Total time for this admit including review of labs, meds, imaging, records - discussion with pt and ER attending Resuscitation Status VTE Prophylaxis Will order VTE Prophylaxis: Yes
[2018-06-23] MEDS ORDERED: CEFEPIME IV 1,000 MG in DEXTROSE 5% 100ML 100 ML IV SCH (19:00)
[2018-06-23] MEDS ORDERED: HydrALAZINE HCL 20 MG/ML VIAL IV. PRN (19:30)
[2018-06-23] MEDS ORDERED: ONDANSETRON INJ 2 MG/ML 2 ML VIAL IV PRN (19:30)
[2018-06-23] MEDS ORDERED: ALBUTEROL HFA 8 GM INHALER INH PRN (19:45)
[2018-06-23 20:10] VITALS: BP 168/73; PULSE 104; TEMP 37.3; O2SAT 100
[2018-06-23 20:15] VITALS: BMI 27.9
[2018-06-23] MEDS ORDERED: CEFEPIME CONSULT ACTIVE PRN (20:45)
[2018-06-23] MEDS ORDERED: CEFEPIME IV 2,000 MG in SYRINGE 7.5 ML IV ONE (21:00)
[2018-06-23] MEDS: HYDROmorphone INJ 0.5 MG/0.5 ML SYR IV PRN (21:08)
[2018-06-23] MEDS: D5NSS + 20MEQ KCL 1,000 ML IV SCH (21:08)
[2018-06-23] MEDS: VANCOMYCIN HCL 125 MG/2.5ML SOLN PO SCH (21:13)
[2018-06-23] MEDS: DOXEPIN HCL 10 MG CAP PO SCH (21:13)
[2018-06-23] MEDS: RASPBERRY SYRUP 5 ML UDP PO SCH (21:13)
[2018-06-23] MEDS: HEPARIN SOD 5000 UNIT/0.5 ML CARP SQ SCH (22:00)
[2018-06-23 22:57] VITALS: BP 92/69; PULSE 91; TEMP 37.1; O2SAT 99
[2018-06-24] MEDS: HYDROmorphone INJ 0.5 MG/0.5 ML SYR IV PRN ×5 (02:40→20:36)
--- NOTE | 2018-06-24 02:54 | Surgery Consultation ---
Consultation Date of Consultation: Jun 24, 2018. Attending Physician: Zach Mcclure M.D. Reason for Consultation: Ischemic colitis History of Present Illness Patient is an 88F w/ PMHx CAD, [place], HTN, anxiety, benign essential tremor, hypothyroidism, CKD IV, LE edema, GERD, chronic troponin elevation and C. diff. Recent admissions for UTI, sepsis, LE cellulitis and AMS who presented to the ED yesterday evening due to abdominal pain, fever, nausea, vomiting and diarrhea. CT abd/pelvis was performed in the ED showing findings concerning for ischemic colitis, although an infectious colitis could not be excluded, No pneumatosis or free air. 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 Notably, loss of diastolic flow in the distal SMA. Per Dr. Byrd's note he spoke with Dr. Correia who recommended conservative management at this time and surgical management if it became worse. WBC 13.40 w/ left shift, Lactic acid WNL. At this time patient reports no abdominal pain however she does state she has a history of back problems and is currently having pain in her back and neck areas. Reports she feels cold as well. no N/V at this time. Notes she has had a decreased appetite and has not been eating much lately. Reports she does feel chilly. PSHx significant for cholecystectomy, appendectomy, hysterectomy. She does take Aspirin 81mg daily. Denies use of other blood thinning or anticoagulant medications. Past Medical/Surgical History Medical Problems: (1) Acute electrocardiogram changes Status: Acute (2) Acute pain of right lower extremity Status: Acute (3) ARF (acute renal failure) Status: Acute (4) Bilateral cellulitis of lower leg Status: Acute (5) Bronchitis Status: Acute (6) Cat bite Status: Acute (7) Cat scratch Status: Acute (8) Cat scratch of forearm Status: Acute (9) Cellulitis Status: Acute (10) Cellulitis of right leg Status: Acute (11) Diarrhea Status: Acute (12) Distal radius fracture, left Status: Acute (13) Dizziness Status: Acute (14) Encounter for wound re-check Status: Acute (15) Failure to thrive Status: Acute (16) Fluid overload Status: Acute (17) Forehead contusion Status: Acute (18) General weakness Status: Acute (19) Head injury, closed Status: Acute (20) Ileus Status: Acute (21) Ischemia, intestine Status: Acute (22) Left radial head fracture Status: Acute (23) LLQ abdominal pain Status: Acute (24) Lower extremity edema Status: Acute (25) Mobitz type 2 second degree atrioventricular block Status: Acute (26) Nausea & vomiting Status: Acute (27) Nausea, vomiting, and diarrhea Status: Acute (28) Renal insufficiency Status: Acute (29) Swelling of left extremity Status: Acute (30) Traumatic ecchymosis of left lower leg Status: Acute (31) Vomiting Status: Acute (32) Weakness Status: Acute Family History FH: heart disease Hypertension Kidney disease Kidney stones Myocardial infarction Prostate cancer Social History Smoking Status: Never Smoker Drug Use: none Marital Status: Housing Status: lives with family Occupation Status: retired Allergies Coded Allergies: Codeine (Verified Allergy, Mild, 06/23/18) Penicillins (Verified Allergy, Mild, ., 06/23/18) tolerated cefepime Erythromycin (Verified Allergy, Unknown, ., 06/23/18) Sulfa Antibiotics (Verified Allergy, Unknown, Unknown, 06/23/18) Banana (Verified Adverse Reaction, Mild, GI symptoms, 06/23/18) Cantaloupe (Verified Adverse Reaction, Mild, GI SYMPTOMS FROM UNSPECIFIED MELONS, 06/23/18) Home Medications Scheduled Aspirin (Aspirin Ec), 81 MG PO QAM Cholecalciferol (Vitamin D 1000 Unit), 1,000 INTER.UNIT PO QPM Coconut Oil (Bulk) (Coconut Oil), 1 APPLN TOP UD Doxepin Hcl (Sinequan), 10 MG PO AMHS Levothyroxine Sodium (Levothyroxine Sodium), 50 MCG PO QAM Morphine Sulfate (Morphine Sulfate Ir), 2 TABS PO BID Multiple Vitamins W/ Minerals (Centrum), 1 TAB PO QPM Prednisone (Prednisone), 5 MG PO QAM Probiotic Product (Align), 4 MG PO DAILY Torsemide (Torsemide), 20 MG PO BID Scheduled PRN Albuterol Hfa (Ventolin Hfa), 2-4 PUFFS INH Q6H PRN for Shortness of Breath Polyethylene Glycol-Propylene (Systane), 1 DROP OP QID PRN for Eye Irritation Miscellaneous Medications Doxepin HCl (Doxepin HCl) Mupirocin (Bactroban 2% Oint) Current Inpatient Medications Current Inpatient Medications Medications (Trade) Dose Ordered Sig/Zack Route Start Time Stop Time Status Last Admin Dose Admin Vancomycin HCl (Vancomycin Oral Soln) 125 mg QID PO 06/23/18 21:00 07/03/18 20:59 06/23/18 21:13 125 MG Potassium Chloride/Dextrose/ Sod Cl 1,000 ml @ 80 mls/hr [id number] IV 06/23/18 20:30 06/24/18 15:14 06/23/18 21:08 80 MLS/HR Heparin Sodium (Porcine) (Heparin Sq 5000 Unit/0.5ml) 5,000 unit Q8H SQ 06/23/18 22:00 07/23/18 21:59 Ondansetron HCl (Zofran Inj) 4 mg Q6H PRN IV 06/23/18 19:30 07/23/18 19:29 Hydralazine HCl (HydrALAZINE INJ) 2.5 mg Q6H PRN IV. 06/23/18 19:30 07/23/18 19:29 Albuterol (Ventolin Hfa Inhaler) 2 puffs Q6H PRN INH 06/23/18 19:45 07/23/18 19:44 Doxepin HCl (Sinequan Cap) 10 mg AMHS PO 06/23/18 21:00 07/23/18 20:59 06/23/18 21:13 10 MG Levothyroxine Sodium (Synthroid Tab) 50 mcg DAILYBB PO 06/24/18 06:00 07/24/18 06:59 Hydromorphone HCl (Dilaudid Inj) 0.5 mg Q4H PRN IV 06/23/18 19:45 07/07/18 19:44 06/23/18 21:08 0.5 MG Raspberry (Raspberry Syrup 5ml Cup) 5 ml QID PO 06/23/18 21:00 07/07/18 20:59 06/23/18 21:13 5 ML Methylprednisolone Sodium Succinate 5 mg/Syringe 0.5 ml @ 1.5 mls/min DAILY IV 06/24/18 09:00 9/18/18 08:59 Cefepime HCl 1000 mg/Syringe 11 ml @ 5.5 mls/min DAILY@2100 IV 06/24/18 21:00 07/02/18 21:01 Cefepime HCl (Consult) 1 ea UD PRN N/A 06/23/18 20:45 07/23/18 20:44 Review of Systems Constitutional: + fever, + chills Respiratory: No shortness of breath Cardiovascular: No chest pain Abdomen: + pain (generalized), + nausea, + vomiting, + constipation, No diarrhea Genitourinary - Female: + dysuria, + hematuria Integumentary: No new/changing skin lesions, No color change Physical Exam Date Time Temp Pulse Resp B/P (MAP) Pulse Ox O2 Delivery O2 Flow Rate FiO2 06/24/18 00:15 Nasal Cannula 3.0 06/23/18 22:57 37.1 91 17 92/69 (77) 99 Nasal Cannula 3.0 06/23/18 20:15 Room Air 06/23/18 20:10 37.3 104 18 168/73 (104) 100 Nasal Cannula 3.0 06/23/18 20:02 37.1 97 14 135/58 100 06/23/18 19:47 97 14 135/58 100 Nasal Cannula 3.0 06/23/18 19:17 93 17 100 Nasal Cannula 3.0 06/23/18 18:47 96 16 100 Nasal Cannula 3.0 06/23/18 18:47 100 22 97 Nasal Cannula 3.0 06/23/18 18:17 101 20 100 06/23/18 17:47 91 14 100 06/23/18 17:17 92 19 100 06/23/18 16:47 96 20 100 18 16:45 104 16 135/58 100 Nasal Cannula 3.0 06/23/18 16:17 106 15 100 06/23/18 16:07 98 06/23/18 15:17 113 18 85 06/23/18 14:47 99 21 100 06/23/18 14:17 97 17 100 06/23/18 14:15 102 147/69 06/23/18 13:47 96 16 100 06/23/18 13:44 37.1 102 26 152/70 99 Nasal Cannula 3.0 06/23/18 13:17 93 18 100 8/18/18 12:56 94 Nasal Cannula 2.0 06/23/18 12:55 Room Air 06/23/18 12:55 92 Room Air 06/23/18 12:17 105 13 93 06/23/18 12:07 100 06/23/18 11:55 37.2 103 18 159/102 97 Room Air Patient laying in bed resting. Appears pale and chronically ill at first glance. General Appearance: no apparent distress Head: atraumatic ENT: hearing grossly normal Respiratory/Chest: no respiratory distress, no accessory muscle use Abdomen/GI: non tender, soft, no organomegaly, no pulsatile mass Neurologic/Psych: alert, normal mood/affect, oriented x 3 Skin: + pallor Laboratory Results Last 24 Hours Test 06/23/18 12:30 06/23/18 18:52 White Blood Count 13.40 K/uL Red Blood Count 3.93 M/uL Hemoglobin 11.2 g/dL Hematocrit 36.3 % Mean Corpuscular Volume 92.4 fL Mean Corpuscular Hemoglobin 28.5 pg Mean Corpuscular Hemoglobin Concent 30.9 g/dl Platelet Count 339 K/uL Mean Platelet Volume 8.8 fL Neutrophils (%) (Auto) 89.8 % Lymphocytes (%) (Auto) 5.2 % Monocytes (%) (Auto) 4.5 % Eosinophils (%) (Auto) 0.0 % Basophils (%) (Auto) 0.1 % Neutrophils # (Auto) 12.03 K/uL Lymphocytes # (Auto) 0.70 K/uL Monocytes # (Auto) 0.60 K/uL Eosinophils # (Auto) 0.00 K/uL Basophils # (Auto) 0.01 K/uL RDW Standard Deviation 56.6 fL RDW Coefficient of Variation 16.7 % Immature Granulocyte % (Auto) 0.4 % Immature Granulocyte # (Auto) 0.06 K/uL Prothrombin Time 10.0 SECONDS Prothromb Time International Ratio 1.0 Activated Partial Thromboplast Time 24.1 SECONDS Partial Thromboplastin Ratio 0.9 Sodium Level 137 mmol/L Potassium Level 3.2 mmol/L Chloride Level 96 mmol/L Carbon Dioxide Level 32 mmol/L Anion Gap 9.0 mmol/L Blood Urea Nitrogen 32 mg/dl Creatinine 2.24 mg/dl Est Creatinine Clear Calc Drug Dose 12.1 ml/min Estimated GFR () 22.0 Estimated GFR (Non- 19.0 BUN/Creatinine Ratio 14.1 Random Glucose 127 mg/dl Calcium Level 9.2 mg/dl Magnesium Level 2.7 mg/dl Total Bilirubin 0.9 mg/dl Direct Bilirubin 0.3 mg/dl Aspartate Amino Transf (AST/SGOT) 18 U/L Alanine Aminotransferase (ALT/SGPT) 13 U/L Alkaline Phosphatase 51 U/L Troponin I 0.055 ng/ml Total Protein 6.7 gm/dl Albumin 3.0 gm/dl Amylase Level 53 U/L Lipase 77 U/L Thyroid Stimulating Hormone (TSH) 0.749 uIu/ml Lactic Acid Level 1.1 mmol/L Assessment & Plan Ischemic colitis Abdomen soft, non-distended, non-tender. no N/V at this time. afebrile. WBC 13.4k, Lactic Acid 1.1. Does not feel like she has a surgical abdomen at this time and is in no acute distress - no acute surgical intervention at this time. Agree with conservative management for now - NPO, IVF, IV Abx. Medical management per hospitalist service. Reevaluate later this AM, Will follow closely. Will discuss findings with Dr. Joya. Please contact with questions or concerns.
[2018-06-24] MEDS: LEVOTHYROXINE 50 MCG TAB PO SCH (05:49)
[2018-06-24] MEDS: HEPARIN SOD 5000 UNIT/0.5 ML CARP SQ SCH ×3 (05:51→21:40)
[2018-06-24 07:36] LABS: CREATININE 1.98 mg/dl (0.60-1.20)
--- NOTE | 2018-06-24 07:40 | DIAGNOSTIC IMAGING REPORT ---
RIGHT LOWER EXTREMITY VENOUS DOPPLER CLINICAL HISTORY: Right ankle pain. COMPARISON STUDY: Right lower extremity venous Doppler December 11, 2016. TECHNIQUE: Sonography of the deep venous system of the right lower extremity was performed. Compression and augmentation were evaluated. FINDINGS: The common femoral, superficial femoral and popliteal veins were compressible. Augmentation was normal. Flow was shown within the deep calf vessels. IMPRESSION: No evidence of deep venous thrombus within the right lower extremity. Electronically signed by: Frank Velez M.D. 06/24/2018 7:39 AM Dictated Date/Time: 06/24/2018 7:38 AM
[2018-06-24 08:00] VITALS: BP 126/87; PULSE 87; TEMP 36.9; O2SAT 98
[2018-06-24] MEDS ORDERED: HYDROmorphone INJ 0.5 MG/0.5 ML SYR IV ONE (08:00)
[2018-06-24] MEDS ORDERED: NURSING VERBAL MED ORDER ONE ×2 (08:00→11:15)
[2018-06-24 08:10] VITALS: O2SAT 98
[2018-06-24 08:19] LABS: HEMATOCRIT 32.4 % (37-47); HEMOGLOBIN 9.7 g/dL (12.0-16.0); MEAN CORPUSCULAR HEMOGLOBIN 28.4 pg (25-34); MEAN CORPUSCULAR HGB CONC 29.9 g/dl (32-36); MEAN PLATELET VOLUME 9.2 fL (7.4-10.4); PLATELET COUNT 281 K/uL (130-400); RED CELL DISTRIBUTION WIDTH CV 16.8 % (11.5-14.5); WHITE BLOOD COUNT 8.45 K/uL (4.8-10.8)
[2018-06-24] MEDS ORDERED: METHYLPREDNISOLONE IV 5 MG in SYRINGE 0.375 ML IV SCH (09:00)
[2018-06-24] MEDS ORDERED: METHYLPREDNISOLONE IV 5 MG in SYRINGE 0 ML IV SCH (09:00)
[2018-06-24 09:30] LABS: CKMB < 1.0 ng/ml (0.5-3.6)
[2018-06-24] MEDS: D5NSS + 20MEQ KCL 1,000 ML IV SCH (09:47)
[2018-06-24] MEDS: RASPBERRY SYRUP 5 ML UDP PO SCH ×4 (09:47→20:30)
[2018-06-24] MEDS: DOXEPIN HCL 10 MG CAP PO SCH ×2 (09:48→20:30)
[2018-06-24] MEDS: VANCOMYCIN HCL 125 MG/2.5ML SOLN PO SCH ×4 (09:49→20:30)
[2018-06-24 10:28] VITALS: O2SAT 95
[2018-06-24] MEDS: LIDOCAINE 4% CREAM 15 GM TUBE EXT SCH (11:54)
--- NOTE | 2018-06-24 14:51 | Progress Note ---
Subjective Date of Service: Jun 24, 2018. Subjective Pt evaluation today including: conversation w/ patient, physical exam, chart review, lab review, review of studies, conversation w/ configuration management consultant, review of inpatient medication list Patient seems in significant uncomfortable including lower back pain, abdominal pain, actually anywhere touched she will jump up, because of pain, this is not new, I know her several times in previous admission Reports significant sacral area uncomfortable, and pain Reports several days not eating and drinking, however report no bowel movement no passing gas Problem List Medical Problems: (1) Acute electrocardiogram changes Status: Acute (2) Acute pain of right lower extremity Status: Acute (3) ARF (acute renal failure) Status: Acute (4) Bilateral cellulitis of lower leg Status: Acute (5) Bronchitis Status: Acute (6) Cat bite Status: Acute (7) Cat scratch Status: Acute (8) Cat scratch of forearm Status: Acute (9) Cellulitis Status: Acute (10) Cellulitis of right leg Status: Acute (11) Diarrhea Status: Acute (12) Distal radius fracture, left Status: Acute (13) Dizziness Status: Acute (14) Encounter for wound re-check Status: Acute (15) Failure to thrive Status: Acute (16) Fluid overload Status: Acute (17) Forehead contusion Status: Acute (18) General weakness Status: Acute (19) Head injury, closed Status: Acute (20) Ileus Status: Acute (21) Ischemia, intestine Status: Acute (22) Left radial head fracture Status: Acute (23) LLQ abdominal pain Status: Acute (24) Lower extremity edema Status: Acute (25) Mobitz type 2 second degree atrioventricular block Status: Acute (26) Nausea & vomiting Status: Acute (27) Nausea, vomiting, and diarrhea Status: Acute (28) Renal insufficiency Status: Acute (29) Swelling of left extremity Status: Acute (30) Traumatic ecchymosis of left lower leg Status: Acute (31) Vomiting Status: Acute (32) Weakness Status: Acute Review of Systems Constitutional: + weakness, + fatigue Eyes: No worsening of vision, No eye pain, No redness, No discharge, No diplopia ENT: No hearing loss, No unusual epistaxis, No nasal symptoms, No sore throat, No tinnitus, No dental problems, No trouble swallowing Respiratory: No cough, No sputum, No wheezing, No shortness of breath, No dyspnea on exertion, No dyspnea at rest, No hemoptysis Cardiac: + edema (Which is not new), No chest pain, No orthopnea, No PND, No claudication, No palpitations Abdomen: + constipation, No pain, No nausea, No vomiting, No diarrhea Musculoskeletal: + joint pain, No muscle pain, No swelling, No calf pain Female : No dysuria, No urinary frequency, No hematuria, No incontinence, No abnormal vaginal bleeding, No vaginal discharge Neurologic: No memory loss, No paralysis, No weakness, No numbness/tingling, No vertigo, No balance problems Psychiatric: No depression symptoms, No anhedonism, No anxiety, No insomnia, No substance abuse Heme: No abnormal bleeding/bruising, No clotting problems, No swollen lymph nodes, No night sweats Endo: No fatigue, No excessive thirst, No excessive urination Skin: + problem reported (Sacral area skin minimal breakdown,), No rash, No itch, No new/changing skin lesions, No color change, No bleeding Objective Vital Signs Date Time Temp Pulse Resp B/P (MAP) Pulse Ox O2 Delivery O2 Flow Rate FiO2 06/24/18 10:28 95 Room Air 06/24/18 08:10 98 06/24/18 08:00 36.9 87 20 126/87 (100) 98 Room Air 06/24/18 00:15 Nasal Cannula 3.0 06/23/18 22:57 37.1 91 17 92/69 (77) 99 Nasal Cannula 3.0 06/23/18 20:15 Room Air 06/23/18 20:10 37.3 104 18 168/73 (104) 100 Nasal Cannula 3.0 06/23/18 20:02 37.1 97 14 135/58 100 18 19:47 97 14 135/58 100 Nasal Cannula 3.0 06/23/18 19:17 93 17 100 Nasal Cannula 3.0 06/23/18 18:47 96 16 100 Nasal Cannula 3.0 06/23/18 18:47 100 22 97 Nasal Cannula 3.0 06/23/18 18:17 101 20 100 06/23/18 17:47 91 14 100 06/23/18 17:17 92 19 100 06/23/18 16:47 96 20 100 06/23/18 16:45 104 16 135/58 100 Nasal Cannula 3.0 06/23/18 16:17 106 15 100 06/23/18 16:07 98 06/23/18 15:17 113 18 85 06/23/18 14:47 99 21 100 Physical Exam General Appearance: WD/WN, + thin, + pertinent finding (Frail,) Eyes: normal inspection, PERRL, EOMI, sclerae normal ENT: normal ENT inspection, hearing grossly normal, pharynx normal Neck: supple, no adenopathy, thyroid normal, no JVD, no carotid bruits, trachea midline Respiratory/Chest: chest non-tender, normal breath sounds, no respiratory distress, no accessory muscle use, + decreased breath sounds Cardiovascular: regular rate, rhythm, no edema, no gallop, no JVD, no murmur Abdomen: normal bowel sounds, no organomegaly, no pulsatile mass Extremities: non-tender, normal inspection, no pedal edema, no calf tenderness , normal capillary refill, pelvis stable, + swelling (No red), + pertinent finding (Seems pain when touched anywhere) Neurologic/Psychiatric: general 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 nml as tested, no motor/sensory deficits, alert, normal mood/affect, oriented x 3 Skin: normal color, warm/dry, no rash, + pertinent finding (Sacral area asking minimal breakdown 3 mm in dressing, no obvious drainage) Lymphatic: no adenopathy Laboratory Results Last 24 Hours Test 06/23/18 18:52 06/24/18 06:46 06/24/18 08:27 Lactic Acid Level 1.1 mmol/L 0.9 mmol/L White Blood Count 8.45 K/uL Red Blood Count 3.41 M/uL Hemoglobin 9.7 g/dL Hematocrit 32.4 % Mean Corpuscular Volume 95.0 fL Mean Corpuscular Hemoglobin 28.4 pg Mean Corpuscular Hemoglobin Concent 29.9 g/dl RDW Standard Deviation 58.0 fL RDW Coefficient of Variation 16.8 % Platelet Count 281 K/uL Mean Platelet Volume 9.2 fL Sodium Level 140 mmol/L Potassium Level 4.0 mmol/L Chloride Level 105 mmol/L Carbon Dioxide Level 29 mmol/L Anion Gap 7.0 mmol/L Blood Urea Nitrogen 26 mg/dl Creatinine 1.98 mg/dl Est Creatinine Clear Calc Drug Dose 13.7 ml/min Estimated GFR () 25.5 Estimated GFR (Non- 22.0 BUN/Creatinine Ratio 13.2 Random Glucose 120 mg/dl Calcium Level 8.0 mg/dl Magnesium Level 2.4 mg/dl Creatine Kinase MB < 1.0 ng/ml Troponin I 0.024 ng/ml Creatine Kinase MB Ratio Assessment and Plan 88-year-old white female admitted June 23, 2018 because of: Possible ischemic colitis. Surgeon saw patient, patient is a poor surgical candidate, currently abdomen soft, non-distended, non-tender. no N/V , no leukocytosis, negative as trends down, Continue with conservative management for now - NPO, IVF, IV Abx. Sacral area wounds, ordered negative cane ointment, and dress Whole body ache and acute L1 inferior endplate fracture deformity of L1 per CT studies, pain management and follow-up, will start some steroid Recent admission for bilateral lower extremity cellulitis, right bigger than left. Right lower extremity CT studies has rule out abscess, has completed full course of antibiotic treatment hypertension, stable History of coronary artery disease, hypertension, sepsis, urinary tract infection, asthma, chronic obstructive pulmonary disease. DNR., Continued [facility] stay due to: multiple IV medications needed, home environment unsafe for pt Discharge planning: uncertain
[2018-06-24 15:08] VITALS: Ht 142.2 cm; Wt 56.4 kg
[2018-06-24 15:21] VITALS: BP 141/79; PULSE 93; TEMP 37; O2SAT 95
[2018-06-24] MEDS: CEFEPIME IV 1,000 MG in SYRINGE 0 ML IV SCH (20:30)
[2018-06-24 22:56] VITALS: BP 94/65; PULSE 79; TEMP 36.9; O2SAT 93
[2018-06-25] MEDS: HYDROmorphone INJ 0.5 MG/0.5 ML SYR IV PRN ×2 (01:54→08:55)
[2018-06-25] MEDS: HEPARIN SOD 5000 UNIT/0.5 ML CARP SQ SCH ×3 (05:34→21:34)
[2018-06-25] MEDS: LEVOTHYROXINE 50 MCG TAB PO SCH (05:36)
[2018-06-25 06:37] LABS: CREATININE 1.75 mg/dl (0.60-1.20)
[2018-06-25 07:46] VITALS: BP 153/83; PULSE 80; TEMP 36.4; O2SAT 96
[2018-06-25 07:58] VITALS: O2SAT 96
--- NOTE | 2018-06-25 08:42 | Surgery Progress Note ---
Surgery Progress Note Date of Service Jun 25, 2018. Subjective pt denies abdominal pain. only c/o is her chronic back pain. no n/v Objective Vital Signs: Date Time Temp Pulse Resp B/P (MAP) Pulse Ox O2 Delivery O2 Flow Rate FiO2 06/25/18 07:58 96 Room Air 06/25/18 07:46 36.4 80 22 153/83 (106) 96 06/24/18 23:23 Room Air 06/24/18 22:56 36.9 79 16 94/65 (75) 93 Room Air 06/24/18 16:13 Room Air 06/24/18 15:21 37.0 93 18 141/79 (99) 95 Room Air 06/24/18 10:28 95 Room Air General Appearance: + mild distress Neck: trachea midline Respiratory/Chest: no respiratory distress, no accessory muscle use Abdomen: non tender, non distended, soft Laboratory Results: Results Past 24 Hours Test 06/24/18 20:30 06/25/18 05:58 Range/Units Urine Color YELLOW Urine Appearance CLEAR CLEAR Urine pH 5.0 4.5-7.5 Urine Specific [place] 1.015 1.000-1.030 Urine Protein 1+ NEG Urine Glucose (UA) NEG NEG Urine Ketones NEG NEG Urine Occult Blood NEG NEG Urine Nitrite NEG NEG Urine Bilirubin NEG NEG Urine Urobilinogen NEG NEG Urine Leukocyte Esterase SMALL NEG Urine WBC (Auto) 10-30 0-5 /hpf Urine RBC (Auto) 0-4 0-4 /hpf Urine Hyaline Casts (Auto) 1-5 0-5 /lpf Urine Epithelial Cells (Auto) >30 0-5 /lpf Urine Bacteria (Auto) NEG NEG Creatinine 1.75 0.60-1.20 mg/dl Est Creatinine Clear Calc Drug Dose 15.5 ml/min Estimated GFR () 29.6 Estimated GFR (Non- 25.6 Assessment & Plan 06/25/18 pt doing well from abdominal standpoint can initiate diet. no gen surgery issue at this point. will sign off/call if needed.
[2018-06-25] MEDS: VANCOMYCIN HCL 125 MG/2.5ML SOLN PO SCH (08:54)
[2018-06-25] MEDS: LIDOCAINE 4% CREAM 15 GM TUBE EXT SCH (08:55)
[2018-06-25] MEDS: DOXEPIN HCL 10 MG CAP PO SCH ×2 (08:56→21:32)
[2018-06-25] MEDS: RASPBERRY SYRUP 5 ML UDP PO SCH (08:56)
[2018-06-25 09:22] LABS: HEMOGLOBIN 9.1 g/dL (12.0-16.0); MEAN CELL VOLUME 93.8 fL (80-100); MEAN CORPUSCULAR HEMOGLOBIN 28.4 pg (25-34); MEAN CORPUSCULAR HGB CONC 30.3 g/dl (32-36); PLATELET COUNT 260 K/uL (130-400); RED CELL DISTRIBUTION WIDTH CV 16.4 % (11.5-14.5); RED CELL DISTRIBUTION WIDTH SD 56.4 fL (36.4-46.3); WHITE BLOOD COUNT 7.69 K/uL (4.8-10.8)
--- NOTE | 2018-06-25 10:14 | Clinical Documentation Query ---
CLINICAL DOCUMENTATION QUERY This is for educational purposes at this time. As of July 2018, the patient problem list, as documented in the EMR, will reportedly be required to be maintained in an accurate and thorough manner. This is in order to be compliant with meaningful use, a set of standards designed to ensure EHR's produce better health outcomes. Accordingly, please review documentation as currently maintained in the record and consider updating/correcting as appropriate. Thank you. Thank you Problem List Medical Problems: (1) Acute electrocardiogram changes Status: Acute (2) Acute pain of right lower extremity Status: Acute (3) ARF (acute renal failure) Status: Acute (4) Bilateral cellulitis of lower leg Status: Acute (5) Bronchitis Status: Acute (6) Cat bite Status: Acute (7) Cat scratch Status: Acute (8) Cat scratch of forearm Status: Acute (9) Cellulitis Status: Acute (10) Cellulitis of right leg Status: Acute (11) Diarrhea Status: Acute (12) Distal radius fracture, left Status: Acute (13) Dizziness Status: Acute (14) Encounter for wound re-check Status: Acute (15) Failure to thrive Status: Acute (16) Fluid overload Status: Acute (17) Forehead contusion Status: Acute (18) General weakness Status: Acute (19) Head injury, closed Status: Acute (20) Ileus Status: Acute (21) Ischemia, intestine Status: Acute (22) Left radial head fracture Status: Acute (23) LLQ abdominal pain Status: Acute (24) Lower extremity edema Status: Acute (25) Mobitz type 2 second degree atrioventricular block Status: Acute (26) Nausea & vomiting Status: Acute (27) Nausea, vomiting, and diarrhea Status: Acute (28) Renal insufficiency Status: Acute (29) Swelling of left extremity Status: Acute (30) Traumatic ecchymosis of left lower leg Status: Acute (31) Vomiting Status: Acute (32) Weakness Status: Acute Thank You, Wiliam Abarca RN [phone] & via qlicCONNECT
--- NOTE | 2018-06-25 12:57 | Hospitalist Progress Note ---
Hospitalist Progress Note Date of Service Jun 25, 2018. (Tamanna Aguirre ., LION) Subjective Pt evaluation today including: conversation w/ patient, physical exam, chart review, lab review, review of studies, review of inpatient medication list Voiding: no voiding problems Ms. Madison is experiencing her chronic lower back pain but otherwise is not having any symptoms. She would like to go home. ROS Constitutional: no chills, aches, sweats or fever Respiratory: no sob,cough, sputum, or wheezing Cardiac: no chest pain, palpitations, edema, orthopnea or lightheadedness GI: no abdominal pain, nausea, vomiting, diarrhea or constipation : no dysuria or hesitancy Extremities: see HPI Skin: no rash All other systems reviewed and negative (Tamanna Aguirre CRNP) Medications Medications Administered Medications (Trade) Dose Ordered Sig/Zack Route Start Time Stop Time Status Last Admin Dose Admin Ondansetron HCl (Zofran Inj) 4 mg NOW STAT IV 06/23/18 12:10 06/23/18 12:12 DC 06/23/18 12:55 4 MG Sodium Chloride 1,000 ml @ 999 mls/hr Q1H1M STAT IV 06/23/18 12:10 06/23/18 13:10 DC 06/23/18 12:54 999 MLS/HR Fentanyl Citrate (Fentanyl Inj) 25 mcg NOW STAT IV 06/23/18 15:07 06/23/18 15:08 DC 06/23/18 15:19 25 MCG Vancomycin HCl (Vancomycin Oral Soln) 125 mg QID PO 06/23/18 21:00 07/03/18 20:59 06/25/18 08:54 125 MG Potassium Chloride/Dextrose/ Sod Cl 1,000 ml @ 80 mls/hr [id number] IV 06/23/18 20:30 06/24/18 15:14 DC 06/24/18 09:47 80 MLS/HR Heparin Sodium (Porcine) (Heparin Sq 5000 Unit/0.5ml) 5,000 unit Q8H SQ 06/23/18 22:00 07/23/18 21:59 06/25/18 05:34 5,000 UNIT Doxepin HCl (Sinequan Cap) 10 mg AMHS PO 06/23/18 21:00 07/23/18 20:59 06/25/18 08:56 10 MG Levothyroxine Sodium (Synthroid Tab) 50 mcg DAILYBB PO 06/24/18 06:00 07/24/18 06:59 06/25/18 05:36 50 MCG Fentanyl Citrate (Fentanyl Inj) 25 mcg NOW STAT IV 06/23/18 19:32 06/23/18 19:33 DC 06/23/18 19:37 25 MCG Hydromorphone HCl (Dilaudid Inj) 0.5 mg Q4H PRN IV 06/23/18 19:45 07/07/18 19:44 06/25/18 08:55 0.5 MG Raspberry (Raspberry Syrup 5ml Cup) 5 ml QID PO 06/23/18 21:00 07/07/18 20:59 06/25/18 08:56 5 ML Methylprednisolone Sodium Succinate 5 mg/Syringe 0.5 ml @ 1.5 mls/min DAILY IV 06/24/18 09:00 06/24/18 15:13 DC 06/24/18 09:47 1.5 MLS/MIN Cefepime HCl 1000 mg/Syringe 11 ml @ 5.5 mls/min DAILY@2100 IV 06/24/18 21:00 07/02/18 21:01 06/24/18 20:30 5.5 MLS/MIN Cefepime HCl 2000 mg/Syringe 20 ml @ 5 mls/min NOW ONCE IV 06/23/18 21:00 06/23/18 21:03 DC 06/23/18 21:51 5 MLS/MIN Hydromorphone HCl (Dilaudid Inj) 0.5 mg ONE ONCE IV 06/24/18 08:00 06/24/18 08:01 DC 06/24/18 08:02 0.5 MG Lidocaine (AneCream 4%) 1 appln DAILY EXT 06/24/18 12:00 07/24/18 11:59 06/25/18 08:55 1 APPLN Prednisone (PredniSONE TAB) 20 mg Q12@0600,1800 PO 06/24/18 15:30 07/24/18 15:29 06/25/18 05:36 20 MG (Tamanna Aguirre CRNP) Objective Vital Signs Date Time Temp Pulse Resp B/P (MAP) Pulse Ox O2 Delivery O2 Flow Rate FiO2 06/25/18 07:58 96 Room Air 06/25/18 07:46 36.4 80 22 153/83 (106) 96 06/24/18 23:23 Room Air 06/24/18 22:56 36.9 79 16 94/65 (75) 93 Room Air 06/24/18 16:13 Room Air 06/24/18 15:21 37.0 93 18 141/79 (99) 95 Room Air (Tamanna Aguirre CRNP) Physical Exam Notes: General: no distress Eyes: normal inspection, PERLL Respiratory: chest non tender, clear to auscultation, normal breath sounds, no respiratory distress, no accessory muscle use Cardiac: regular rate and rhythm, no rub or gallop, systolic murmur rusb, +2 pitting edema LE, no jvd GI/: active bowel sounds, LUQ abd tenderness to palpation, soft, non distended Extremities: normal range of motion, normal strength, non tender Neuro/Psych: alert and oriented x 3, normal mood and affect Skin: normal color, dry (Tamanna Aguirre CRNP) Laboratory Results Last 24 Hours Test 06/24/18 20:30 06/25/18 05:58 06/25/18 06:06 Urine Color YELLOW Urine Appearance CLEAR Urine pH 5.0 Urine Specific [place] 1.015 Urine Protein 1+ Urine Glucose (UA) NEG Urine Ketones NEG Urine Occult Blood NEG Urine Nitrite NEG Urine Bilirubin NEG Urine Urobilinogen NEG Urine Leukocyte Esterase SMALL Urine WBC (Auto) 10-30 /hpf Urine RBC (Auto) 0-4 /hpf Urine Hyaline Casts (Auto) 1-5 /lpf Urine Epithelial Cells (Auto) >30 /lpf Urine Bacteria (Auto) NEG Creatinine 1.75 mg/dl Est Creatinine Clear Calc Drug Dose 15.5 ml/min Estimated GFR () 29.6 Estimated GFR (Non- 25.6 White Blood Count 7.69 K/uL Red Blood Count 3.20 M/uL Hemoglobin 9.1 g/dL Hematocrit 30.0 % Mean Corpuscular Volume 93.8 fL Mean Corpuscular Hemoglobin 28.4 pg Mean Corpuscular Hemoglobin Concent 30.3 g/dl RDW Standard Deviation 56.4 fL RDW Coefficient of Variation 16.4 % Platelet Count 260 K/uL Mean Platelet Volume 9.0 fL (Tamanna Aguirre CRNP) Assessment and Plan 88-year-old here for abdominal pain, nausea, vomiting and diarrhea Possible ischemic colitis as seen on mesenteric US ad CT - gen surg consulted - patient is a poor surgical candidate and her symptoms are improving, no surgery recommended at this point, recommend starting diet today - continue cefepime for now - c. diff negative - discontinue vancomycin Sacral area wounds - lidocaine ointment and wound care Chronic osteoarthritis, L1 inferior endplate fracture on CT - continue prednisone 40 mg daily - start calcitonin nasal spray, lidocaine patch, tylenol 1g q8h - discontinue hydromorphone, restart home po morphine bid prn - PT/OT Recent admission for bilateral lower extremity cellulitis, right bigger than left. - Right lower extremity CT studies has rule out abscess or DVT HTN, CAD, CKDIII - torsemide on hold for elevated creatinine - patient at baseline creat - will restart Asthma - continue home inhalers DNR., DVT proph - heparin (Tamanna Aguirre CRNP) BRA[employer] FOLDER Physician Supervision Note: I discussed with Tamanna Aguirre BRAID FOLDER and agree with findings and plan as documented in the note. Any exceptions or clarifications are listed here: None Patient is improving surgeries advancing her diet her C. difficile testing was negative apparently this may be all from ischemic colitis continue treat symptomatically and if stable discharge will be given Documented By: Sherwin Ding (Sherwin Ding M.D.)
[2018-06-25] MEDS: ACETAMINOPHEN 500 MG TAB PO SCH ×2 (14:25→21:32)
[2018-06-25 15:07] VITALS: BP 115/52; PULSE 92; TEMP 37.2; O2SAT 95
[2018-06-25] MEDS: LIDODERM (LIDOCAINE) PATCH 5% TD SCH (16:12)
[2018-06-25] MEDS ORDERED: NURSING VERBAL MED ORDER ONE (17:45)
[2018-06-25] MEDS ORDERED: MoRPHine SULFATE IR 15 MG TAB (IMMEDIATE RELEASE) PO SCH ×2 (18:00→21:00)
[2018-06-25] MEDS: CEFEPIME IV 1,000 MG in SYRINGE 0 ML IV SCH (21:31)
[2018-06-25] MEDS: TORSEMIDE 20 MG TAB PO SCH (21:31)
[2018-06-25 23:15] VITALS: BP 132/73; PULSE 80; TEMP 36.4; O2SAT 95
[2018-06-26] MEDS: HEPARIN SOD 5000 UNIT/0.5 ML CARP SQ SCH ×2 (06:12→13:37)
[2018-06-26] MEDS: LEVOTHYROXINE 50 MCG TAB PO SCH (06:13)
[2018-06-26] MEDS: ACETAMINOPHEN 500 MG TAB PO SCH ×2 (06:14→13:36)
[2018-06-26 06:24] LABS: HEMATOCRIT 28.2 % (37-47); HEMOGLOBIN 8.9 g/dL (12.0-16.0); MEAN CELL VOLUME 91.3 fL (80-100); MEAN CORPUSCULAR HEMOGLOBIN 28.8 pg (25-34); MEAN CORPUSCULAR HGB CONC 31.6 g/dl (32-36); MEAN PLATELET VOLUME 8.6 fL (7.4-10.4); PLATELET COUNT 247 K/uL (130-400); RED CELL DISTRIBUTION WIDTH CV 16.5 % (11.5-14.5); RED CELL DISTRIBUTION WIDTH SD 55.4 fL (36.4-46.3); WHITE BLOOD COUNT 7.62 K/uL (4.8-10.8)
[2018-06-26 06:41] LABS: CALCIUM 8.2 mg/dl (8.5-10.1); CREATININE 1.63 mg/dl (0.60-1.20); POTASSIUM 4.4 mmol/L (3.5-5.1)
[2018-06-26 08:04] VITALS: BP 129/77; PULSE 78; TEMP 36.5; O2SAT 97
[2018-06-26] MEDS: LIDODERM (LIDOCAINE) PATCH 5% TD SCH (08:58)
[2018-06-26] MEDS: TORSEMIDE 20 MG TAB PO SCH (08:59)
[2018-06-26] MEDS: DOXEPIN HCL 10 MG CAP PO SCH (08:59)
[2018-06-26] MEDS ORDERED: MoRPHine SULFATE IR 15 MG TAB (IMMEDIATE RELEASE) PO SCH (09:00)
[2018-06-26] MEDS: LIDOCAINE 4% CREAM 15 GM TUBE EXT SCH (09:00)
[2018-06-26] MEDS ORDERED: CALCITONIN SALMON NA 200 IU/AC 3.7 ML BTL SCH (09:00)
[2018-06-26 09:57] VITALS: O2SAT 97
--- NOTE | 2018-06-26 11:03 | Discharge Instructions ---
Discharge Instructions Date of Service Jun 26, 2018. Admission Reason for Admission: Ischemic Colitis Discharge Discharge Diagnosis / Problem: ischemic colitis Discharge Goals Goal(s): Improve disease control Activity Recommendations Activity Limitations: resume your previous activity Exercise/Sports Limitations: gradually increase as tolerated . Instructions / Follow-Up Instructions / Follow-Up Please follow up with your primary care provider within about a week Please have your blood drawn on . Results will go to Dr. Durand Current Hospital Diet Patient's current hospital diet: Low Fiber Diet, Low Fat Diet Discharge Diet Recommended Diet: Low Fiber Diet (advance diet as tolerated), Low Fat Diet Procedures Procedures Performed: lower extremity US abdominal US chest xray Abdomen/pelvis CT Pending Studies Studies pending at discharge: no Medical Emergencies . Who to Call and When: Medical Emergencies: If at any time you feel your situation is an emergency, please call 911 immediately. . Non-Emergent Contact Non-Emergency issues call your: Primary Care Provider Call Non-Emergent contact if: you have a fever, your pain is not controlled, you have any medication questions . . "Provider Documentation" section prepared by Tamanna Aguirre. .
--- NOTE | 2018-06-26 11:49 | Discharge Summary ---
Discharge Summary Date of Service Jun 26, 2018. Discharge Summary Admission Date: Jun 23, 2018 at 19:30 Discharge Date: Jun 26, 2018 Discharge Disposition: Home Principal Diagnosis: ischemic colitis Problems/Secondary Diagnoses: Sacral area wounds, Chronic osteoarthritis, L1 inferior endplate fracture on CT , Recent admission for bilateral lower extremity cellulitis, HTN, CAD, CKDIII, Asthma Immunizations: Have You Had Influenza Vaccine: No History of Tetanus Vaccine?: Yes Tetanus Immunization Date: Apr 06, 2006 History of Pneumococcal: No History of Hepatitis B Vaccine: Unknown Procedures: DUPLEX MESENTERIC IMPRESSION: 1. 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 2. 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 Notably, loss of diastolic flow in the distal SMA. Electronically signed by: Darío Wilson M.D. 06/23/2018 4:07 PM ABD/PELVIS NO IV OR ORAL CONT IMPRESSION: 1. Interval development of significant wall thickening of the mid to distal transverse colon through the descending colon. This distribution is worrisome for an ischemic colitis. Evaluation for ischemic colitis is limited in the absence of intravenous contrast. No pneumatosis or free air. Alternatively, this may represent infectious colitis. 2. Interval development of an inferior endplate fracture deformity of L1. This is new since the most recent CT from May. 3. Complex left ovarian cystic lesion. Neoplasm cannot excluded. Pelvic ultrasound should be obtained on a nonurgent basis of this has not are ready occurred. 4. Evidence of prior granulomas infection. 5. Solid 3 mm lingula nodule, stable since at least 2015 consistent with benign etiology. Electronically signed by: Darío Wilson M.D. 06/23/2018 1:13 PM RIGHT LOWER EXTREMITY VENOUS DOPPLER CLINICAL HISTORY: Right ankle pain. FINDINGS: The common femoral, superficial femoral and popliteal veins were compressible. Augmentation was normal. Flow was shown within the deep calf vessels. IMPRESSION: No evidence of deep venous thrombus within the right lower extremity. Electronically signed by: Frank Velez M.D. 06/24/2018 7:39 AM Consultations: Dr. Joya from General Surgery Medication Reconciliation Continued Medications: Albuterol Hfa (Ventolin Hfa) 200 Puffs/47763 Mcg Aers 2-4 PUFFS INH Q6H PRN for Shortness of Breath, #1 INHALER Aspirin (Aspirin Ec) 81 Mg Tab 81 MG PO QAM Cholecalciferol (Vitamin D 1000 Unit) 1,000 Unit Cap 1000 INTER.UNIT PO QPM, CAP Coconut Oil (Bulk) (Coconut Oil) 1 Oil Oil 1 APPLN TOP UD APPLY TO BACK DIRECTED Doxepin Hcl (Sinequan) 10 Mg Cap 10 MG PO AMHS Doxepin HCl (Doxepin HCl) 25 Mg Cap Levothyroxine Sodium (Levothyroxine Sodium) 50 Mcg Tab 50 MCG PO QAM Morphine Sulfate (Morphine Sulfate Ir) 15 Mg Tab 2 TABS PO BID Multiple Vitamins W/ Minerals (Centrum) 1 Tab Tab 1 TAB PO QPM Mupirocin (Bactroban 2% Oint) 66 Appln/22 Gm Oint Polyethylene Glycol-Propylene (Systane) 1 Brittney Brittney 1 DROP OP QID PRN for Eye Irritation, ML Prednisone (Prednisone) 5 Mg Tab 5 MG PO QAM Probiotic Product (Align) 4 Mg Cap 4 MG PO DAILY Torsemide (Torsemide) 20 Mg Tab 20 MG PO BID Discharge Exam ROS Constitutional: no chills, aches, sweats or fever Respiratory: no sob,cough, sputum, or wheezing Cardiac: no chest pain, palpitations, orthopnea or lightheadedness GI: no abdominal pain, nausea, vomiting, diarrhea or constipation : no dysuria or hesitancy Extremities: no joint pain or weakness Skin: no rash, All other systems reviewed and negative Ms. Madison tolerated advancing her diet to low fat, low fiber. She has no abdominal pain or nausea. She has no pain in her abdomen to palpation. Hernias are soft, painless, not erythematous. PE General: no distress Eyes: normal inspection, PERLL Respiratory: chest non tender, clear to auscultation, normal breath sounds, no respiratory distress, no accessory muscle use Cardiac: regular rate and rhythm, no rub or gallop, no murmur, no edema, no jvd GI/: active bowel sounds, no abd pain or tenderness, soft, non distended Extremities: normal range of motion, normal strength, non tender Neuro/Psych: alert and oriented x 3, normal mood and affect Skin: normal color, dry, reddened lower extremities Hospital Course 88 y/o F Hx CAD, [place], HTN, anxiety, benign essential tremor, hypothyroidism, CKD IV, LE edema, GERD, chronic troponin elevation. Recent admissions for UTI, sepsis and AMS. She has a prior history of C diff as well. She presents with fever, abdominal pain, nausea, vomiting and diarrhea. Recently, the pt has not been able to tolerate a sufficient amount of PO intake. She felt that she was constipated the prior evening and took a laxative. The morning of admission she began to vomit and then had diarrhea. She had mild abdominal pain only. A CT of the abdomen was obtained followed by a mesenteric US. Results were concerning for colitis which may be ischemic and hemodynamically significant stenosis of the SMA and celiac arteries. Additionally, her daughters stated that her distal lower extremities have become erythematous and warm over the past 2 days. She was recently treated for cellulitis with Levaquin. Possible ischemic colitis as seen on mesenteric US ad CT - gen surg consulted - patient is a poor surgical candidate and her symptoms are improving, no surgery recommended at this point, tolerating full liquid diet - advance to bland and then as tolerated - given cefepime IV while inpatient x 4 days - c. diff negative - discontinued po vancomycin Sacral area wounds - lidocaine ointment and wound care Chronic osteoarthritis, L1 inferior endplate fracture on CT - given prednisone 40 mg daily x3 days - will discontinue for discharge and restart chronic prednisone dose - refused calcitonin nasal spray, given lidocaine patch, tylenol 1g q8h - discontinued hydromorphone, restart home po morphine bid prn - pain controlled today - PT/OT - PT ok for dc to home Anemia, likely of chronic disease - Hgb 8.9 today, which appears to be in her range of normal, down from 11.2 on admission, may be partially dilutional due to torsemide being held for a few days - no s/s of bleeding, hgb normocytic - recheck on outpatient Recent admission for bilateral lower extremity cellulitis, right bigger than left. - Right lower extremity US studies ruled out abscess or DVT - cefepime inpatient, will dc with three days of doxy HTN, CAD, CKDIII - continue torsemide - restart ASA for discharge Asthma - continue home inhalers [employer] Physician Supervision Note: I discussed with Tamanna Aguirre NP and agree with findings and plan as documented in the note. Any exceptions or clarifications are listed here: None Patient's been stable with regard to her ischemic colitis will be discharged home with close follow-up with outpatient home health Documented By: Sherwin Ding Total Time Spent: Greater than 30 minutes This includes examination of the patient, discharge planning, medication reconciliation, and communication with other providers. Discharge Instructions Please refer to the electronic Patient Visit Report (Discharge Instructions) for additional information. Follow-Up pcp in a week, blood draw Additional Copies To Mil Durand M.D.
[2018-06-26 11:56] VITALS: BP 157/63; PULSE 85; TEMP 37; O2SAT 99
[2018-06-26 13:04] VITALS: BP 157/63; PULSE 85; TEMP 37; O2SAT 99
[2018-06-26] MEDS ORDERED: DOXY-300 PO (13:14)
== END 2018-06-26 16:00 | disposition home or self-care (01) | DRG 394 ==
LOC: C.EDC 11:47 → EDBD 11:47 → C.MSN 19:30 → EDBEDREQSVC 19:33 → ENRESERV 19:43
PROVIDERS: ADMIT Internal Medicine; ATTEND Nurse Practitioner Family
DX: K55.9 Vascular disorder of intestine, unspecified (principal); S32.019A Unspecified fracture of first lumbar vertebra, initial encounter for closed fracture; N18.3 Chronic kidney disease, stage 3 (moderate); J45.909 Unspecified asthma, uncomplicated; Z82.49 Family history of ischemic heart disease and other diseases of the circulatory system; Z84.1 Family history of disorders of kidney and ureter; Z88.5 Allergy status to narcotic agent; Z88.2 Allergy status to sulfonamides; Z88.8 Allergy status to other drugs, medicaments and biological substances; M19.90 Unspecified osteoarthritis, unspecified site; I12.9 Hypertensive chronic kidney disease with stage 1 through stage 4 chronic kidney disease, or unspecified chronic kidney disease; I25.10 Atherosclerotic heart disease of native coronary artery without angina pectoris; G25.0 Essential tremor; D64.9 Anemia, unspecified; X58.XXXA Exposure to other specified factors, initial encounter; Y92.199 Unspecified place in other specified residential institution as the place of occurrence of the external cause; Z66 Do not resuscitate

== ENCOUNTER → 2018-06-28 | Outpatient (CLI) | payer OTHER, MEDICARE ==
[~2018-06-28] MED LIST changes: +BCTROWC; +DOXY-300 PO; -LVQ500 PO; -PROM25TA9 PO; +SNQ25
[2018-06-28 12:58] LABS: HEMOGLOBIN 10.8 g/dL (12.0-16.0); MEAN CELL VOLUME 91.6 fL (80-100); MEAN CORPUSCULAR HEMOGLOBIN 28.3 pg (25-34); MEAN CORPUSCULAR HGB CONC 30.9 g/dl (32-36); MEAN PLATELET VOLUME 9.6 fL (7.4-10.4); PLATELET COUNT 307 K/uL (130-400); RED CELL DISTRIBUTION WIDTH CV 16.7 % (11.5-14.5); RED CELL DISTRIBUTION WIDTH SD 55.7 fL (36.4-46.3); WHITE BLOOD COUNT 5.34 K/uL (4.8-10.8)
[2018-06-28 16:37] LABS: ALBUMIN 2.8 gm/dl (3.4-5.0); ALKALINE PHOSPHATASE 51 U/L (45-117); ALT/SGPT 17 U/L (12-78); AST/SGOT 18 U/L (15-37); BLOOD UREA NITROGEN 28 mg/dl (7-18); CALCIUM 8.8 mg/dl (8.5-10.1); CARBON DIOXIDE 25 mmol/L (21-32); CREATININE 1.77 mg/dl (0.60-1.20); GLUCOSE 109 mg/dl (70-99); POTASSIUM 3.8 mmol/L (3.5-5.1); SODIUM 138 mmol/L (136-145); TOTAL PROTEIN 6.5 gm/dl (6.4-8.2)
== END | disposition home or self-care (01) ==
LOC: C.LABBC 11:05
PROVIDERS: ATTEND Internal Medicine Nephrology
DX: D64.9 Anemia, unspecified (principal); I12.9 Hypertensive chronic kidney disease with stage 1 through stage 4 chronic kidney disease, or unspecified chronic kidney disease; N18.3 Chronic kidney disease, stage 3 (moderate); E55.9 Vitamin D deficiency, unspecified

== ENCOUNTER → 2018-06-29 | Outpatient (CLI) | payer OTHER, MEDICARE | END | disposition home or self-care (01) | LOC: C.LABBC 11:15 | PROVIDERS: ATTEND Internal Medicine Nephrology | DX: I12.9 Hypertensive chronic kidney disease with stage 1 through stage 4 chronic kidney disease, or unspecified chronic kidney disease (principal); N18.3 Chronic kidney disease, stage 3 (moderate); D64.9 Anemia, unspecified; E55.9 Vitamin D deficiency, unspecified ==

== ENCOUNTER 2018-12-09 15:20 | Inpatient (IN) ==
--- NOTE | 2018-12-09 15:52 | XRay Report ---
XR chest 1V portable CLINICAL HISTORY: Dyspnea dyspnea COMPARISON STUDY: 12/01/2017 FINDINGS: Vague interstitial infiltrate left base. Lungs otherwise appear clear. Diaphragms are chan h. IMPRESSION: Minimal interstitial infiltrate left base. The above report was generated using voice recognition software. It may contain grammatical, syntax or spelling errors. Electronically signed by: Jeff Dupree M.D. 12/09/2018 3:50 PM
[2018-12-09 16:18] LABS: Influenza B virus by PCR Neg for Influ B (Neg)
[2018-12-09 16:29] LABS: Basophils # (auto) 0.02 K/uL (0-0.2); Basophils % (auto) 0.4 %; Eosinophils # (auto) 0.24 K/uL (0-0.5); Eosinophils % (auto) 4.2 %; Hematocrit (blood only) 36.8 % (37-47); Hemoglobin 11.4 g/dL (12.0-16.0); Immature Granulocytes # (auto) 0.04 K/uL (0.00-0.02); Immature Granulocytes % (auto) 0.7 %; Lymphocytes # (auto) 0.46 K/uL (1.2-3.4); Lymphocytes % (auto) 8.1 %; Mean Corpuscular Volume 96.8 fL (80-100); Mean Platelet Volume 9.4 fL (7.4-10.4); Monocytes # (auto) 0.44 K/uL (0.11-0.59); Monocytes % (auto) 7.7 %; Neutrophils # (auto) 4.48 K/uL (1.4-6.5); Neutrophils % (auto) 78.9 %; Platelet Count 254 K/uL (130-400); RDW Coefficient of Variation 14.5 % (11.5-14.5); RDW Standard Deviation 51.2 fL (36.4-46.3); White Blood Count 5.68 K/uL (4.8-10.8)
[2018-12-09 16:37] LABS: Partial Thromboplastin Time 25.7 Seconds (21.0-31.0); Prothrombin Time 10.1 Seconds (9.0-12.0)
[2018-12-09 16:45] LABS: Albumin Level 3.1 gm/dl (3.4-5.0); BUN Creatinine Ratio 15.8 (10-20); Calcium 8.8 mg/dl (8.5-10.1); Est GFR (African American) 30.5; Est GFR (Non-African American) 26.3; Magnesium 2.1 mg/dl (1.8-2.4); Potassium 4.9 mmol/L (3.5-5.1)
[2018-12-09] MEDS ORDERED: OSELTAMIVIR PHOSPHATE SUSP 30 MG/5 ML UDP PO STA (16:48)
[2018-12-09] MEDS ORDERED: DOXYCYCLINE HYCLATE 100 MG CAP PO STA (16:49)
[2018-12-09 16:52] LABS: Albumin Globulin Ratio 0.9 (0.9-2); Bilirubin,Total 0.4 mg/dl (0.2-1); Globulin 3.4 gm/dl (2.5-4.0); Total Protein 6.5 gm/dl (6.4-8.2); Troponin I 0.225 ng/ml (0-0.045)
[2018-12-09] MEDS ORDERED: ONDANSETRON INJ 2 MG/ML 2 ML VIAL ONE (17:37)
--- NOTE | 2018-12-09 20:55 | History & Physical Report ---
Date of Service December 09, 2018 Assessment & Plan (1) Influenza A: 88F here for acute SOB and found to be FLU A + by PCR, and LLL suspicious for pneumonia on CXR. FLU A +, complicated by PNA and significant comorbidities -tamiflu x5d, renally dosed PNA -doxycycline 100mg BID x 5 days. D/C if afebrile x48-72h Elev troponins, initial 0.225 -pt denies ischemic symptoms -- likely multifactorial due to incr oxygen demand , CKD, acute illness -ECG without ischemic changes -trend x3 -admit to Med/surg with tele Hospice care pt -unsure as to the reason pt is on hospice, has h/o gynecologic mass chosen to be untreated, on outpt records -apparently family is struggling to take care of her at home -DC planning to assess needs -may benefit from palliative consult Venous stasis dermatitis -Is currently taking hydroxyzine TID for itching -We will change hydroxyzine to PRN, given beers criteria/sedation/exacerbating confusion and weakness -Add triamcinolone topical steroid to be applied to skin x 2 weeks -Wound care can consider Unna boot Anxiety -Home med of lorazepam ordered 0.5 mg every 4 hours -Spoke with daughter, she takes it typically twice a day and sometimes 3 times a day for anxiety -Will make PRN here, is a medication that can contribute to failure to thrive -Continue home mirtazapine 7.5 mg nightly FEN/GI: heart healthy, renal diet DVT ppx: Lovenox q24h CODE STATUS: FULL no mech vent as confirmed with pt and Adilene daughter at bedside. DISPO: Med/surg with Tele to trend troponins, then can consider step down if down trend. 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 Other ongoing medical problems: #Asthma -Continue Ventolin as needed #Known sacral ulcer -Wound consult #Known AV block Mobitz type II, hypertension, CAD -Not currently on any antihypertensives at home. Blood pressure/ECG acceptable here. Follow. -Continue aspirin 81 mg daily #Hypothyroidism -Continue levothyroxine 50 mcg daily #Osteoarthritis, chronic pain -Continue home prednisone 5 mg daily, see no need for stress dosing -Continue home morphine 15 mg twice daily #On promethazine as needed for nausea, no nausea noted today. -continue PRN (2) Pneumonia: (3) Elevated troponin: (4) Hypoxia: (5) Hypertension: (6) Asthma: (7) CKD (chronic kidney disease) stage 4, GFR 15-29 ml/min: (8) Anxiety: (9) Venous stasis dermatitis of both lower extremities: (10) Mobitz (type) II atrioventricular block: (11) Vitamin D deficiency: (12) Hypothyroid: (13) CAD (coronary artery disease): (14) Hospice care patient: (15) Chronic pain: (16) Arthritis: (17) Sacral ulcer: History of Present Illness Chief Complaint: shortness of breath, flu A +, pneumonia Primary Care Provider: Mil Durand 88-year-old female here for shortness of breath and dyspnea on exertion. Patient is here with family at bedside. History of sick contacts flu positive at home. Patient was found to be flu a positive here and chest x-ray findings suspicious for left lower lobe pneumonia. Patient also found to have slightly elevated troponins. Tamiflu and doxycycline begun in the emergency room. 1-2 L on nasal cannula increased oxygen demand. Patient is apparently connected with outpatient hospice care, hospice care nurse was here today in the emergency room. Hospice was revoked in order to have acute care. Concern for failure to thrive at home. PMH 1. Asthma 2. Benign essential tremor 3. CAD 4. CKD stage IV 5. Hypertension 6. Hypothyroidism 7. Mobitz type II AV block 8. Peripheral edema 9. History of pelvic mass, conservative management, on hospice. PSH 1. Appendectomy 2. Cholecystectomy 3. Tonsillectomy 4. Vaginal hysterectomy SH: Lives with her 2 daughters and a grandchild. Is currently on hospice although hospice revoked for this hospital stay. Ambulates with a walker. Denies T/E/D. FH: Noncontributory due to age Allergies Allergy/AdvReac Type Severity Reaction Status Date / Time codeine Allergy Mild unk Verified 12/09/18 15:43 Penicillins Allergy Mild . Verified 12/09/18 15:43 erythromycin base Allergy Unknown . Verified 12/09/18 15:43 Sulfa (Sulfonamide Allergy Unknown Unknown Verified 12/09/18 15:43 Antibiotics) banana AdvReac Mild GI symptoms Verified 12/09/18 15:43 cefuroxime [From Ceftin] AdvReac Diarrhea Verified 12/09/18 15:50 Cantaloupe AdvReac Mild GI Uncoded 12/09/18 15:43 SYMPTOMS FROM UNSPECIFIED MELONS Home Medications Home Medications Medication Instructions Recorded Confirmed Type Bifidobacterium infantis [Align] 4 mg PO DAILY 11/29/18 12/09/18 History albuterol sulfate [Ventolin HFA] 1 puff INHALATION Q6H PRN 11/29/18 12/09/18 History aspirin 81 mg PO DAILY 11/29/18 12/09/18 History cholecalciferol (vitamin D3) 1,000 unit PO QPM 11/29/18 12/09/18 History [Vitamin D3] hydroxyzine HCl 25 mg PO TID 11/29/18 12/09/18 History levothyroxine 50 mcg PO DAILY 11/29/18 12/09/18 History lorazepam 0.5 mg PO Q4 11/29/18 12/09/18 History mirtazapine 7.5 mg PO DAILY 11/29/18 12/09/18 History morphine 15 mg PO BID 11/29/18 12/09/18 History prednisone 5 mg PO DAILY 11/29/18 12/09/18 History promethazine 25 mg PO Q6H PRN 11/29/18 12/09/18 History Past Med/Surg History Medical History Hypertension (Resolved) Asthma (Chronic) Acute kidney injury superimposed on chronic kidney disease (Resolved) Chronic kidney disease (Chronic) Back fracture Elevated troponin Epigastric abdominal pain Ischemic colitis Nausea and vomiting Sepsis due to cellulitis Family History Other No significant family history Social History marital status: / Current Living Situation: Family Feels Safe at Home: Yes Safety Concerns: Feels Safe At This Time Smoking Status: Never smoker Hx Alcohol Use: No Hx Substance Use: No Beliefs That Will Affect Care: None Preferred Language: [place] Communication Ability: Effective Infection Prevention Coordinator Required: No Review of Systems All systems reviewed & are unremarkable except as noted in HPI & below (Patient denies headache, visual changes, chest pain, dyspnea at rest, abdominal pain, constipation or diarrhea. Endorses weakness. Endorses leg edema that is chronic for her.) Physical Exam 2 Vital Signs (Past 24 Hours): Last Vital Signs Temp 37.0 C 12/09/18 15:30 Pulse 94 H 12/09/18 20:26 Resp 20 12/09/18 20:26 BP 138/69 12/09/18 20:26 Pulse Ox 98 12/09/18 20:26 Physical Exam: Vitals noted as above and within normal limits . GENERAL: Awake, alert to person, place, and not time, nontoxic-appearing, in no distress HENT: Normocephalic, atraumatic. Nasal cannula in place. Mucus membranes appear dry. EYES: Normal conjunctiva. Sclera non-icteric. EOMI. NECK: Supple. Full range of motion. No JVD RESPIRATORY: Exam positive for bilateral wheezing. Normal work of breathing. CARDIAC: Rate in 80s, Type II AV block noted on ECG. Extremities warm and well perfused, 3+ edema noted up to knees bilaterally, ; pulses difficult to palpate given edema. ABDOMEN: Soft, non-distended. No tenderness to palpation in all four quadrants. No rebound or guarding. No masses. Bowel sounds are normal. LOWER EXTREMITIES: Inspection of calves reveal equal size bilaterally. They are tender to light palpation. 3+ edema. mild erythema discoloration. NEURO: No focal gross focal motor deficits noted. Sensation in tact. CN II-XII grossly in tact. SKIN: Rash c/w venous stasis dermatitis is present. No jaundice noted. Significant lesions present include a healing superficial ulcer on left upper banda, and report of longstanding sacral ulcer unable to visualize given habitus. PSYCH: Appropriate mood and affect. Cooperative. Expresses sadness with having to stay in hospital. Exam as done by Family [facility] Med Resident pgy-2 Constitutional: well developed, + ill appearing and + thin Eyes: normal visual hua by confrontation and + anicteric sclerae Neck: normal visual inspection and trachea midline Respiratory: normal respiratory effort; no respiratory distress Auscultation: + crackles (L base) Cardiovascular: Rate/Rhythm: regular rate and regular rhythm Gastrointestinal (Abdomen): Inspection/Auscultation: abdomen not distended Percussion/Palpation: abdomen soft; abdomen nontender Musculoskeletal: Head/Neck/Chest: normocephalic and head atraumatic b/l LE edema, + pedal pulses Skin: no rashes, warm and dry Neurologic: awake; not confused Speech / Cognition: + abnormal speech (but with shaky voice) Psychiatric: A+Ox3, euthymic affect Lymphatic: Exam as done by Zeynep Cornejo DO Results & Data Laboratory Results 12/09/18 12/09/18 12/09/18 Range/Units 16:16 16:16 16:16 WBC 5.68 (4.8-10.8) K/uL RBC 3.80 L (4.2-5.4) M/uL Hgb 11.4 L (12.0-16.0) g/dL Hct 36.8 L (37-47) % MCV 96.8 (80-100) fL MCH 30.0 (25-34) pg MCHC 31.0 L (32-36) g/dL RDW Std Deviation 51.2 H (36.4-46.3) fL RDW Coeff of Rashida 14.5 (11.5-14.5) % Plt Count 254 (130-400) K/uL MPV 9.4 (7.4-10.4) fL Immature Gran % (Auto) 0.7 % Neut % (Auto) 78.9 % Lymph % (Auto) 8.1 % [place] % (Auto) 7.7 % Eos % (Auto) 4.2 % Baso % (Auto) 0.4 % Immature Gran # (Auto) 0.04 H (0.00-0.02) K/uL Neut # (Auto) 4.48 (1.4-6.5) K/uL Lymph # (Auto) 0.46 L (1.2-3.4) K/uL Alger # (Auto) 0.44 (0.11-0.59) K/uL Eos # (Auto) 0.24 (0-0.5) K/uL Baso # (Auto) 0.02 (0-0.2) K/uL PT 10.1 (9.0-12.0) Seconds INR 1.0 (0.9-1.1) APTT 25.7 (21.0-31.0) Seconds PTT Ratio 1.0 Sodium 141 (136-145) mmol/L Potassium 4.9 (3.5-5.1) mmol/L Chloride 105 (98-107) mmol/L Carbon Dioxide 26 (21-32) mmol/L Anion Gap 10.0 (3-11) BUN 27 H (7-18) mg/dl Creatinine 1.71 H (0.6-1.2) mg/dl Est Cr Clr Drug Dosing 18.0 ml/min Est GFR ( Amer) 30.5 Est GFR (Non-Af Amer) 26.3 BUN/Creatinine Ratio 15.8 (10-20) Glucose 102 H (70-99) mg/dl Calcium 8.8 (8.5-10.1) mg/dl Magnesium 2.1 (1.8-2.4) mg/dl Total Bilirubin 0.4 (0.2-1) mg/dl AST 16 (15-37) U/L ALT 14 (12-78) U/L Alkaline Phosphatase 40 L (45-117) U/L Troponin I 0.225 H* (0-0.045) ng/ml Total Protein 6.5 (6.4-8.2) gm/dl Albumin 3.1 L (3.4-5.0) gm/dl Globulin 3.4 (2.5-4.0) gm/dl Albumin/Globulin Ratio 0.9 (0.9-2) Influenza Type A (PCR) (Neg) Influenza Type B (PCR) (Neg) 12/09/18 Range/Units 15:42 WBC (4.8-10.8) K/uL RBC (4.2-5.4) M/uL Hgb (12.0-16.0) g/dL Hct (37-47) % MCV (80-100) fL MCH (25-34) pg MCHC (32-36) g/dL RDW Std Deviation (36.4-46.3) fL RDW Coeff of Rashida (11.5-14.5) % Plt Count (130-400) K/uL MPV (7.4-10.4) fL Immature Gran % (Auto) % Neut % (Auto) % Lymph % (Auto) % [place] % (Auto) % Eos % (Auto) % Baso % (Auto) % Immature Gran # (Auto) (0.00-0.02) K/uL Neut # (Auto) (1.4-6.5) K/uL Lymph # (Auto) (1.2-3.4) K/uL Alger # (Auto) (0.11-0.59) K/uL Eos # (Auto) (0-0.5) K/uL Baso # (Auto) (0-0.2) K/uL PT (9.0-12.0) Seconds INR (0.9-1.1) APTT (21.0-31.0) Seconds PTT Ratio Sodium (136-145) mmol/L Potassium (3.5-5.1) mmol/L Chloride (98-107) mmol/L Carbon Dioxide (21-32) mmol/L Anion Gap (3-11) BUN (7-18) mg/dl Creatinine (0.6-1.2) mg/dl Est Cr Clr Drug Dosing ml/min Est GFR ( Amer) Est GFR (Non-Af Amer) BUN/Creatinine Ratio (10-20) Glucose (70-99) mg/dl Calcium (8.5-10.1) mg/dl Magnesium (1.8-2.4) mg/dl Total Bilirubin (0.2-1) mg/dl AST (15-37) U/L ALT (12-78) U/L Alkaline Phosphatase (45-117) U/L Troponin I (0-0.045) ng/ml Total Protein (6.4-8.2) gm/dl Albumin (3.4-5.0) gm/dl Globulin (2.5-4.0) gm/dl Albumin/Globulin Ratio (0.9-2) Influenza Type A (PCR) Pos for Influ A A* (Neg) Influenza Type B (PCR) Neg for Influ B (Neg) Diagnostic Findings CXR concerning for LLL pneumonia Medications Administered tamiflu, doxycycline Supervising Physician Co-Signing Physician Notes Pt seen and examined by me. Denies chest pain. Pt was SOB earlier but states she is no longer SOB with the O2, s/p abx. Tolerating PO without issue, just finished a popsicle. Pt has had multiple falls recently. Agree with HPI/ROS as noted by resident See above for my exam in PE section Agree with plan as outlined above Flu A--tamiflu PNA-doxy Elevated trop, monitor serials, recent falls and elevated cr noted and could be contributing in the setting of possibly polypharmacy causing muscle breakdown Prednisone use for arthritis pain, will continue LE, sacral ulcers--WCC pending Baseline cr is 1.5, now at 1.7. Has been as high at 2.2 recently Number of medications that pt is taking for pain, anxiety, agitation, etc is somewhat concerning. Daughter states she takes the following daily Ativan 2-3x/day for agitation, started the last few weeks Morphine BID for pain, ongoing Vistaril for itching TID, started the last few weeks Mirtazapine HS for agitation Phenergan 3x/d with meals for n/v This regimen needs streamlined. All will be PRN during admission to see how frequently pt is requiring in an effort to decrease risk of falls, confusion, etc due to polypharmacy. I did discuss this with pt's daughter at bedside. She states that she had concerns about the medications as well. Resident Activity Tracking Resident Involvement: Resident Care Provided Care Provided: [facility] Medicine _ (1) Pneumonia Aspiration pneumonia type: Laterality: left Lung location: lower lobe of lung Pneumonia type: due to unspecified organism Qualified Code(s): J18.1 - Lobar pneumonia, unspecified organism
--- NOTE | 2018-12-09 21:50 | Emergency Department Note ---
Entered by Dieudonne Hummel acting as a scribe for Grazyna Ferreira MD History of Present Illness General Chief complaint: Shortness of Breath/Dyspnea Stated complaint: COUGH, SOB Time Seen by Provider: 12/09/18 15:23 Source: patient History of Present Illness Onset (ago): day(s) 1 Location: chest (lungs) Pain Consistency: + other (persistent) Quality: + other (shortness of breath) Associated symptoms: + cough, + weakness and + other (vomiting, chills, chest tightness) The patient is an 88 year old female who presents to the Emergency Room with complaints of persistent shortness of breath beginning yesterday. The patient reports that she has been coughing, vomiting, and experiencing chills. She also reports some chest tightness and states that it is difficult to take deep breaths. She notes that she is currently in hospice for weakness but denies history of cancer or other terminal illness. She reports that she lives with her two daughters and grandson, stating that her grandson is currently being evaluated at urgent care for a high fever. She notes that she follows Dr. Nora [facility] and Dr. Durand as PCP. Home Medications Home Medications Medication Instructions Recorded Confirmed Type Bifidobacterium infantis [Align] 4 mg PO DAILY 11/29/18 12/09/18 History albuterol sulfate [Ventolin HFA] 1 puff INHALATION Q6H PRN 11/29/18 12/09/18 History aspirin 81 mg PO DAILY 11/29/18 12/09/18 History cholecalciferol (vitamin D3) 1,000 unit PO QPM 11/29/18 12/09/18 History [Vitamin D3] hydroxyzine HCl 25 mg PO TID 11/29/18 12/09/18 History levothyroxine 50 mcg PO DAILY 11/29/18 12/09/18 History lorazepam 0.5 mg PO Q4 11/29/18 12/09/18 History mirtazapine 7.5 mg PO DAILY 11/29/18 12/09/18 History morphine 15 mg PO BID 11/29/18 12/09/18 History prednisone 5 mg PO DAILY 11/29/18 12/09/18 History promethazine 25 mg PO Q6H PRN 11/29/18 12/09/18 History oseltamivir [Tamiflu] 30 mg PO DAILY #3 cap 12/11/18 Rx Allergies Allergy/AdvReac Type Severity Reaction Status Date / Time codeine Allergy Mild unk Verified 12/09/18 15:43 Penicillins Allergy Mild . Verified 12/09/18 15:43 erythromycin base Allergy Unknown . Verified 12/09/18 15:43 Sulfa (Sulfonamide Allergy Unknown Unknown Verified 12/09/18 15:43 Antibiotics) banana AdvReac Mild GI symptoms Verified 12/09/18 15:43 cefuroxime [From Ceftin] AdvReac Diarrhea Verified 12/09/18 15:50 Cantaloupe AdvReac Mild GI Uncoded 12/09/18 15:43 SYMPTOMS FROM UNSPECIFIED MELONS Past Med/Surg History Medical History Hypertension (Resolved) Asthma (Chronic) Acute kidney injury superimposed on chronic kidney disease (Resolved) Chronic kidney disease (Chronic) Back fracture Elevated troponin Epigastric abdominal pain Ischemic colitis Nausea and vomiting Sepsis due to cellulitis Family History Other No significant family history Social History marital status: / Current Living Situation: Family Feels Safe at Home: Yes Safety Concerns: Feels Safe At This Time Smoking Status: Never smoker Hx Alcohol Use: No Hx Substance Use: No Beliefs That Will Affect Care: None Preferred Language: Kazakh Review of Systems See HPI for pertinent positives & negatives. and A total of 10 systems reviewed and were otherwise negative Physical Exam Vital Signs Vital Signs - 24 hr 12/11/18 07:34 12/11/18 08:00 12/11/18 11:43 Temperature 36.7 C 37.4 C Temperature Source Oral Oral Pulse Rate 78 Pulse Rate [Apical] Pulse Rate [Left Finger] 66 79 Pulse Rate [Right Finger] Respiratory Rate 20 20 Respiratory Effort / Characteristics SOB on Exertion Respiratory Depth Normal Respiratory Pattern Regular Blood Pressure [Left Arm] 131/43 L 141/69 H Blood Pressure [Right Arm] Blood Pressure Mean [Left Arm] 72 93 Pulse Oximetry 92 92 Oxygen Delivery Method Room Air 12/11/18 14:33 Temperature 37.4 C Temperature Source Pulse Rate Pulse Rate [Apical] 79 Pulse Rate [Left Finger] 79 Pulse Rate [Right Finger] 79 Respiratory Rate 20 Respiratory Effort / Characteristics Respiratory Depth Respiratory Pattern Blood Pressure [Left Arm] 141/69 H Blood Pressure [Right Arm] 106/56 L Blood Pressure Mean [Left Arm] Pulse Oximetry 92 Oxygen Delivery Method Vital signs reviewed. General: Elderly-appearing female, in no significant distress. HEENT: No scleral icterus, PERRLA, neck supple. Atraumatic. Cardiovascular: Regular rate and rhythm, no extra sounds. Pulmonary: Clear to auscultation bilaterally, normal work of breathing. Abdomen: Soft, nontender, nondistended, positive bowel sounds. Musculoskeletal: Atraumatic. Chronic-appearing non-pitting edema of the bilateral lower extremities. Neurologic: Patient awake alert and oriented x 3, full strength in all 4 extremities. Cranial nerves 2 through 12 grossly intact. Skin: Warm, dry, no rash Course 1529: Past medical records reviewed. The patient was evaluated in room B9, and a complete history and physical examination were performed. 1700: The patients troponin is mildly elevated. 1748: The patient has vomited in the ER. 1929: The patients daughter has arrived, and hospice will be coming shortly. 1952: The patient was placed on supplemental oxygen. I spoke the patients daughter and the hospice nurse. The patient is reluctant but willing to stay in the hospital. 2008: I consulted Dr. Cornejo [facility] Hospitalist. She will reevaluate the patient for hospitalization. Consultations Consultation #1: I consulted Dr. Cornejo [facility] Hospitalist. She will reevaluate the patient for hospitalization. Time: 20:09 Administered Medications Discontinued Medications Acetaminophen (Tylenol) 650 mg PO Q4H PRN PRN Reason: Pain or Fever Stop: 01/08/19 22:39 Last Admin: 12/10/18 03:42 Dose: 650 mg Aspirin (Ecotrin Ectab) 81 mg PO DAILY DEBBY Stop: 01/09/19 08:59 Last Admin: 12/11/18 08:40 Dose: 81 mg Admin: 12/10/18 08:28 Dose: 81 mg Doxycycline Hyclate (Vibramycin) 100 mg PO NOW STA Stop: 12/09/18 16:50 Last Admin: 12/09/18 17:07 Dose: 100 mg Enoxaparin Sodium (Lovenox) 30 mg SQ Q24H DEBBY Stop: 01/09/19 07:59 Last Admin: 12/11/18 08:40 Dose: 30 mg Admin: 12/10/18 08:28 Dose: 30 mg Hydroxyzine HCl (Vistaril) 25 mg PO TID PRN PRN Reason: itching skin Stop: 01/08/19 22:39 Last Admin: 12/10/18 00:08 Dose: 25 mg Lactobacillus Acidophilus (Floranex) 4 tab PO DAILY DEBBY Stop: 01/09/19 08:59 Last Admin: 12/11/18 08:40 Dose: 4 tab Admin: 12/10/18 08:28 Dose: 4 tab Levothyroxine Sodium (Synthroid) 50 mcg PO DAILYBB [facility] Stop: 01/09/19 06:29 Last Admin: 12/11/18 05:51 Dose: 50 mcg Admin: 12/10/18 05:09 Dose: 50 mcg Lorazepam (Ativan) 0.5 mg PO BID [facility] Stop: 01/08/19 22:39 Last Admin: 12/10/18 05:09 Dose: Not Given Mirtazapine (Remeron) 7.5 mg PO HS [facility] Stop: 01/08/19 22:39 Last Admin: 12/10/18 20:31 Dose: 7.5 mg Admin: 12/10/18 00:08 Dose: 7.5 mg Morphine Sulfate (Morphine Sulfate Ir) 15 mg PO BID [facility] Stop: 12/23/18 22:39 Last Admin: 12/11/18 08:40 Dose: 15 mg Admin: 12/10/18 20:30 Dose: 15 mg Admin: 12/10/18 08:29 Dose: 15 mg Admin: 12/10/18 00:08 Dose: 15 mg Ondansetron HCl (Zofran) Confirm Administered Dose 4 mg .ROUTE .STK-MED ONE Stop: 12/09/18 17:38 Last Admin: 12/09/18 17:40 Dose: 4 mg Oseltamivir Phosphate (Tamiflu) 30 mg PO NOW STA; Protocol Stop: 12/09/18 16:49 Last Admin: 12/09/18 17:07 Dose: 30 mg Oseltamivir Phosphate (Tamiflu) 30 mg PO DAILY DEBBY; Protocol Stop: 12/15/18 08:59 Last Admin: 12/11/18 08:40 Dose: 30 mg Admin: 12/10/18 08:29 Dose: 30 mg Prednisone (Prednisone) 5 mg PO DAILY DEBBY Stop: 01/09/19 08:59 Last Admin: 12/11/18 08:40 Dose: 5 mg Admin: 12/10/18 08:29 Dose: 5 mg Triamcinolone Acetonide (Aristocort 0.1%) 1 appln EXT BID DEBBY Stop: 01/08/19 23:14 Last Admin: 12/11/18 08:40 Dose: 1 appln Admin: 12/10/18 20:30 Dose: 1 appln Admin: 12/10/18 08:28 Dose: 1 appln Admin: 12/10/18 00:35 Dose: 1 appln Vitamin D (Vitamin D3) 1,000 units PO QPM DEBBY Stop: 01/09/19 20:59 Last Admin: 12/10/18 20:31 Dose: 1,000 units Medical Decision Making Differential Diagnosis Differential diagnosis: Etiologies such as infections, reactive airway disease, pneumonia, pneumothorax , COPD, CHF, cardiac ischemia, pulmonary embolism, musculoskeletal, gastrointestinal, as well as others were entertained. Medical Records Attestation: I reviewed the patient's medical records. Home Medications Current Medication List: was personally reviewed by me Laboratory Data Attestation: I reviewed the patient's lab results. Result diagrams: 12/10/18 05:19 12/10/18 05:19 Lab Results 12/09/18 12/09/18 12/09/18 Range/Units 15:42 16:16 16:16 WBC 5.68 (4.8-10.8) K/uL RBC 3.80 L (4.2-5.4) M/uL Hgb 11.4 L (12.0-16.0) g/dL Hct 36.8 L (37-47) % MCV 96.8 (80-100) fL MCH 30.0 (25-34) pg MCHC 31.0 L (32-36) g/dL RDW Std Deviation 51.2 H (36.4-46.3) fL RDW Coeff of Rashida 14.5 (11.5-14.5) % Plt Count 254 (130-400) K/uL MPV 9.4 (7.4-10.4) fL Immature Gran % (Auto) 0.7 % Neut % (Auto) 78.9 % Lymph % (Auto) 8.1 % Drew % (Auto) 7.7 % Eos % (Auto) 4.2 % Baso % (Auto) 0.4 % Immature Gran # (Auto) 0.04 H (0.00-0.02) K/uL Neut # (Auto) 4.48 (1.4-6.5) K/uL Lymph # (Auto) 0.46 L (1.2-3.4) K/uL Drew # (Auto) 0.44 (0.11-0.59) K/uL Eos # (Auto) 0.24 (0-0.5) K/uL Baso # (Auto) 0.02 (0-0.2) K/uL PT 10.1 (9.0-12.0) Seconds INR 1.0 (0.9-1.1) APTT 25.7 (21.0-31.0) Seconds PTT Ratio 1.0 Sodium (136-145) mmol/L Potassium (3.5-5.1) mmol/L Chloride (98-107) mmol/L Carbon Dioxide (21-32) mmol/L Anion Gap (3-11) BUN (7-18) mg/dl Creatinine (0.6-1.2) mg/dl Est Cr Clr Drug Dosing ml/min Est GFR ( Amer) Est GFR (Non-Af Amer) BUN/Creatinine Ratio (10-20) Glucose (70-99) mg/dl Calcium (8.5-10.1) mg/dl Magnesium (1.8-2.4) mg/dl Total Bilirubin (0.2-1) mg/dl AST (15-37) U/L ALT (12-78) U/L Alkaline Phosphatase (45-117) U/L Troponin I (0-0.045) ng/ml Total Protein (6.4-8.2) gm/dl Albumin (3.4-5.0) gm/dl Globulin (2.5-4.0) gm/dl Albumin/Globulin Ratio (0.9-2) Urine Color Urine Appearance (Clear) Urine pH (4.5-7.5) Ur Specific [place] (1.000-1.030) Urine Protein (Negative) Urine Glucose (UA) (Negative) Urine Ketones (Negative) Urine Blood (Negative) Urine Nitrite (Negative) Urine Bilirubin (Negative) Urine Urobilinogen (Negative) Ur Leukocyte Esterase (Negative) Urine WBC (Auto) (0-5) /hpf Urine RBC (Auto) (0-4) /hpf U Hyaline Cast (Auto) (0-5) /lpf U Epithel Cells (Auto) (0-5) /lpf Urine Bacteria (Auto) (Negative) Urine Yeast Influenza Type A (PCR) Pos for Influ A A* (Neg) Influenza Type B (PCR) Neg for Influ B (Neg) 12/09/18 12/10/18 12/10/18 Range/Units 16:16 05:19 05:19 WBC 4.47 L (4.8-10.8) K/uL RBC 3.32 L (4.2-5.4) M/uL Hgb 10.0 L (12.0-16.0) g/dL Hct 32.1 L (37-47) % MCV 96.7 (80-100) fL MCH 30.1 (25-34) pg MCHC 31.2 L (32-36) g/dL RDW Std Deviation 51.2 H (36.4-46.3) fL RDW Coeff of Rashida 14.5 (11.5-14.5) % Plt Count 236 (130-400) K/uL MPV 9.1 (7.4-10.4) fL Immature Gran % (Auto) 0.7 % Neut % (Auto) 62.7 % Lymph % (Auto) 20.1 % Drew % (Auto) 11.6 % Eos % (Auto) 4.7 % Baso % (Auto) 0.2 % Immature Gran # (Auto) 0.03 H (0.00-0.02) K/uL Neut # (Auto) 2.80 (1.4-6.5) K/uL Lymph # (Auto) 0.90 L (1.2-3.4) K/uL Drew # (Auto) 0.52 (0.11-0.59) K/uL Eos # (Auto) 0.21 (0-0.5) K/uL Baso # (Auto) 0.01 (0-0.2) K/uL PT (9.0-12.0) Seconds INR (0.9-1.1) APTT (21.0-31.0) Seconds PTT Ratio Sodium 141 138 (136-145) mmol/L Potassium 4.9 4.8 (3.5-5.1) mmol/L Chloride 105 107 (98-107) mmol/L Carbon Dioxide 26 26 (21-32) mmol/L Anion Gap 10.0 5.0 (3-11) BUN 27 H 27 H (7-18) mg/dl Creatinine 1.71 H 1.57 H (0.6-1.2) mg/dl Est Cr Clr Drug Dosing 18.0 19.6 ml/min Est GFR ( Amer) 30.5 33.8 Est GFR (Non-Af Amer) 26.3 29.1 BUN/Creatinine Ratio 15.8 17.4 (10-20) Glucose 102 H 73 (70-99) mg/dl Calcium 8.8 8.3 L (8.5-10.1) mg/dl Magnesium 2.1 (1.8-2.4) mg/dl Total Bilirubin 0.4 (0.2-1) mg/dl AST 16 (15-37) U/L ALT 14 (12-78) U/L Alkaline Phosphatase 40 L (45-117) U/L Troponin I 0.225 H* (0-0.045) ng/ml Total Protein 6.5 (6.4-8.2) gm/dl Albumin 3.1 L (3.4-5.0) gm/dl Globulin 3.4 (2.5-4.0) gm/dl Albumin/Globulin Ratio 0.9 (0.9-2) Urine Color Urine Appearance (Clear) Urine pH (4.5-7.5) Ur Specific [place] (1.000-1.030) Urine Protein (Negative) Urine Glucose (UA) (Negative) Urine Ketones (Negative) Urine Blood (Negative) Urine Nitrite (Negative) Urine Bilirubin (Negative) Urine Urobilinogen (Negative) Ur Leukocyte Esterase (Negative) Urine WBC (Auto) (0-5) /hpf Urine RBC (Auto) (0-4) /hpf U Hyaline Cast (Auto) (0-5) /lpf U Epithel Cells (Auto) (0-5) /lpf Urine Bacteria (Auto) (Negative) Urine Yeast Influenza Type A (PCR) (Neg) Influenza Type B (PCR) (Neg) 12/10/18 12/10/18 12/10/18 Range/Units 05:19 13:57 19:59 WBC (4.8-10.8) K/uL RBC (4.2-5.4) M/uL Hgb (12.0-16.0) g/dL Hct (37-47) % MCV (80-100) fL MCH (25-34) pg MCHC (32-36) g/dL RDW Std Deviation (36.4-46.3) fL RDW Coeff of Rashida (11.5-14.5) % Plt Count (130-400) K/uL MPV (7.4-10.4) fL Immature Gran % (Auto) % Neut % (Auto) % Lymph % (Auto) % Drew % (Auto) % Eos % (Auto) % Baso % (Auto) % Immature Gran # (Auto) (0.00-0.02) K/uL Neut # (Auto) (1.4-6.5) K/uL Lymph # (Auto) (1.2-3.4) K/uL Drew # (Auto) (0.11-0.59) K/uL Eos # (Auto) (0-0.5) K/uL Baso # (Auto) (0-0.2) K/uL PT (9.0-12.0) Seconds INR (0.9-1.1) APTT (21.0-31.0) Seconds PTT Ratio Sodium (136-145) mmol/L Potassium (3.5-5.1) mmol/L Chloride (98-107) mmol/L Carbon Dioxide (21-32) mmol/L Anion Gap (3-11) BUN (7-18) mg/dl Creatinine (0.6-1.2) mg/dl Est Cr Clr Drug Dosing ml/min Est GFR ( Amer) Est GFR (Non-Af Amer) BUN/Creatinine Ratio (10-20) Glucose (70-99) mg/dl Calcium (8.5-10.1) mg/dl Magnesium (1.8-2.4) mg/dl Total Bilirubin (0.2-1) mg/dl AST (15-37) U/L ALT (12-78) U/L Alkaline Phosphatase (45-117) U/L Troponin I 0.383 H* 0.224 H* (0-0.045) ng/ml Total Protein (6.4-8.2) gm/dl Albumin (3.4-5.0) gm/dl Globulin (2.5-4.0) gm/dl Albumin/Globulin Ratio (0.9-2) Urine Color Dark Yellow Urine Appearance Clear (Clear) Urine pH 5.0 (4.5-7.5) Ur Specific [place] 1.024 (1.000-1.030) Urine Protein 1+ H (Negative) Urine Glucose (UA) Negative (Negative) Urine Ketones Negative (Negative) Urine Blood Negative (Negative) Urine Nitrite Negative (Negative) Urine Bilirubin Negative (Negative) Urine Urobilinogen Negative (Negative) Ur Leukocyte Esterase Negative (Negative) Urine WBC (Auto) 1-5 (0-5) /hpf Urine RBC (Auto) 0-4 (0-4) /hpf U Hyaline Cast (Auto) 1-5 (0-5) /lpf U Epithel Cells (Auto) 20-30 H (0-5) /lpf Urine Bacteria (Auto) Negative (Negative) Urine Yeast Not Reportable Influenza Type A (PCR) (Neg) Influenza Type B (PCR) (Neg) Imaging Data Radiologist's Impression: Radiology results as stated below per my review and the radiologist's interpretation: XR chest 1V portable CLINICAL HISTORY: Dyspnea dyspnea COMPARISON STUDY: 12/01/2017 FINDINGS: Vague interstitial infiltrate left base. Lungs otherwise appear clear. Diaphragms are smooth. IMPRESSION: Minimal interstitial infiltrate left base. The above report was generated using voice recognition software. It may contain grammatical, syntax or spelling errors. Electronically signed by: Jeff Dupree M.D. 12/09/2018 3:50 PM ECG Data Attestation: I personally reviewed and interpreted this ECG as follows: Indication: SOB/dyspnea Rate (beats per minute): 91 Rhythm: sinus rhythm Findings: + other (frequent PACs and PVCs; QTc is 492; previous anterior infarct noted) and + left axis deviation Blood Pressure Blood Pressure Findings: Elevated blood pressure Blood Pressure Disposition: further management by hospitalist [facility] Narrative This patient was evaluated and appeared to be in no significant distress. Physical exam is consistent with an elderly female that is somewhat debilitated. She states her family members are also feeling ill. Influenza swab was obtained and is positive. Chest x-ray concerning for left basilar infiltrate. Patient does have a normal white blood cell count and is found to be afebrile. She did periodically have an oxygen requirement. Patient was given oral Tamiflu and doxycycline. She did "spit up" shortly thereafter however nursing staff does not believe she vomited the pills. Patient was given 4 mg of IV Zofran. Patient's daughter arrived in the emergency department after several hours. Hospice nurse was contacted. After a prolonged case management intervention, it was decided that the patient's hospice status would be revoked and hospitalization pursued. Family wishes to transition to a chcf facility after hospitalization although the patient is not necessarily in agreement. The hospitalist was contacted, Dr. Cornejo, who will evaluate the patient for further management. Impression & Plan Influenza A, Pneumonia, Elevated troponin, Hypoxia Discharge Plan Visit Data *Final* Discharge Date/Time: 12/09/18 22:05 Chief Complaint: Shortness of Breath/Dyspnea Stated Complaint: COUGH, SOB ED Provider: Grazyna Ferreira Discharge Problem: Influenza A, Pneumonia, Elevated troponin, Hypoxia Patient Disposition: Admitted As Inpatient Discharge Instructions Interventions: ED Discharge Assessment Last Done: 12/09/18 22:05 The scribe's documentation has been prepared under my direction and personally reviewed by me in its entirety. I confirm that the note above accurately reflects all work, treatment, procedures, and medical decision making performed by me.
[2018-12-09] MEDS ORDERED: POLYETHYLENE (MIRALAX) 17 GM PACK PO PRN (22:40)
[2018-12-09] MEDS ORDERED: ALBUTEROL HFA 8 GM INHALER INH PRN (22:40)
[2018-12-09] MEDS ORDERED: PROMETHAZINE HCL 25 MG TAB PO PRN (22:40)
[2018-12-09] MEDS ORDERED: ACETAMINOPHEN 325 MG TAB PO PRN (22:40)
[2018-12-09] MEDS ORDERED: LORazepam 0.5 MG TAB PO SCH (22:40)
[2018-12-09] MEDS ORDERED: LORazepam 0.5 MG TAB PO PRN (23:01)
[2018-12-10] MEDS: MIRTAZAPINE TAB 15 MG TAB PO SCH ×2 (00:08→20:31)
[2018-12-10] MEDS: MoRPHine SULFATE IR 15 MG TAB (IMMEDIATE RELEASE) PO SCH ×3 (00:08→20:30)
[2018-12-10] MEDS: TRIAMCINOLONE ACET 0.1% CR 80 GM TUBE EXT SCH ×3 (00:35→20:30)
[2018-12-10] MEDS: LEVOTHYROXINE SODIUM 50 MCG TABLET PO SCH (05:09)
[2018-12-10 05:30] LABS: Basophils # (auto) 0.01 K/uL (0-0.2); Basophils % (auto) 0.2 %; Eosinophils # (auto) 0.21 K/uL (0-0.5); Eosinophils % (auto) 4.7 %; Hematocrit (blood only) 32.1 % (37-47); Immature Granulocytes # (auto) 0.03 K/uL (0.00-0.02); Immature Granulocytes % (auto) 0.7 %; Lymphocytes % (auto) 20.1 %; Mean Corpuscular Hgb Conc 31.2 g/dL (32-36); Mean Corpuscular Volume 96.7 fL (80-100); Mean Platelet Volume 9.1 fL (7.4-10.4); Monocytes # (auto) 0.52 K/uL (0.11-0.59); Monocytes % (auto) 11.6 %; Neutrophils % (auto) 62.7 %; Platelet Count 236 K/uL (130-400); RDW Coefficient of Variation 14.5 % (11.5-14.5); RDW Standard Deviation 51.2 fL (36.4-46.3); Red Blood Count 3.32 M/uL (4.2-5.4); White Blood Count 4.47 K/uL (4.8-10.8)
[2018-12-10 06:08] LABS: BUN Creatinine Ratio 17.4 (10-20); Calcium 8.3 mg/dl (8.5-10.1); Creatinine Clr Calc Pharmacy 19.6 ml/min; Est GFR (African American) 33.8; Est GFR (Non-African American) 29.1; Potassium 4.8 mmol/L (3.5-5.1)
[2018-12-10] MEDS: ENOXAPARIN INJ 30 MG/0.3 ML SYR SQ SCH (08:28)
[2018-12-10] MEDS: LACTOBACILLUS ACIDOPHILUS (FLORANEX) TAB PO SCH (08:28)
[2018-12-10] MEDS: ASPIRIN 81 MG ECTAB PO SCH (08:28)
[2018-12-10] MEDS: predniSONE 5 MG TAB PO SCH (08:29)
[2018-12-10] MEDS: OSELTAMIVIR PHOSPHATE SUSP 30 MG/5 ML UDP PO SCH (08:29)
--- NOTE | 2018-12-10 08:34 | Hospitalist Progress Note ---
Date of Service December 10, 2018 Assessment & Plan (1) Influenza A: 88F here for acute SOB and found to be FLU A + by PCR, and LLL suspicious for pneumonia on CXR. FLU A +, complicated by PNA and significant comorbidities -tamiflu, renally dosed PNA -doxycycline 100mg BID x 5 days. Elev troponins Demand ischemia -pt denies ischemic symptoms -trend has been upward but still considering supply demand mismatch Hospice care pt -unsure as to the reason pt is on hospice -apparently family is struggling to take care of her at home -DC planning to assess needs may benefit from palliative consult DVT ppx: Lovenox q24h CODE STATUS: FULL no mech vent as confirmed with pt and Adilene daughter at bedside. (2) Pneumonia: influenza pneumonia (3) Elevated troponin: Demand ischemia (4) Hypoxia: (5) Hypertension: (6) Asthma: (7) CKD (chronic kidney disease) stage 4, GFR 15-29 ml/min: (8) Anxiety: (9) Venous stasis dermatitis of both lower extremities: (10) Mobitz (type) II atrioventricular block: (11) Vitamin D deficiency: (12) Hypothyroid: (13) CAD (coronary artery disease): (14) Hospice care patient: (15) Chronic pain: Subjective Patient feels somewhat better she is a bit forgetful she has no chest pain although she did have some demand ischemia with elevated troponins due to her hypoxia from her influenza pneumonia. She is coughing much less Review of Systems ROS: Patient is weak and frail says she is cared for at home by her family No double vision blurry vision No problems with speech or swallowing No palpitations, chest pain or pressure No Wheezing is of intermittent coughing has not exerted herself to see she is dyspneic on exertion No abdominal pain nausea vomiting diarrhea changes in appetite or weight No burning urine urine frequency or changes in color No focal joint pain or muscle pain No skin rashes or oral lesions No unusual bruising or bleeding No focused back pain or numbness or loss of strength No new changes in memory or confusion Physical Exam 2 Vital Signs (Past 24 Hours): Last Vital Signs Temp 36.7 C 12/10/18 07:09 Pulse 80 12/10/18 07:09 Resp 18 12/10/18 07:09 BP 113/60 12/10/18 07:09 Pulse Ox 97 12/10/18 07:09 The patient appeared thin and frail Vital signs as documented. Head exam is unremarkable. normocephalic, atraumatic Neck is without jugular venous distension, thyromegaly, or lymphademopathy Lungs are decreased air movement but no focal or loss wheezes or crackles Cardiac exam reveals Rhythm is regular. First and second heart sounds normal. Abdominal exam reveals normal bowel sounds, no masses, no organomegaly Extremities are nonedematous and both pedal pulses are present Neurologic exam is A&Ox2, no focal deficits, strength is equal bilateral Psychologically seems neither anxious or depressed Skin is warm Dry without bruises or lesions _ (1) Pneumonia Aspiration pneumonia type: Laterality: left Lung location: lower lobe of lung Pneumonia type: due to unspecified organism Qualified Code(s): J18.1 - Lobar pneumonia, unspecified organism
[2018-12-10 20:39] LABS: Appearance Urine Clear (Clear); Bacteria Urine Automated Negative (Negative); Bilirubin Urine Negative (Negative); Color Urine Dark Yellow; Epithelial Cell Urine Auto 20-30 /lpf (0-5); Glucose Urine UA Negative (Negative); Ketones Urine Negative (Negative); Leukocyte Esterase Urine Negative (Negative); Nitrite Urine Negative (Negative); Protein Urine 1+ (Negative); Specific Gravity Urine 1.024 (1.000-1.030); Urobilinogen Urine Negative (Negative)
[2018-12-10] MEDS ORDERED: CHOLECALCIFEROL 1,000 UNITS TAB PO SCH (21:00)
[2018-12-11] MEDS: LEVOTHYROXINE SODIUM 50 MCG TABLET PO SCH (05:51)
[2018-12-11] MEDS: OSELTAMIVIR PHOSPHATE SUSP 30 MG/5 ML UDP PO SCH (08:40)
[2018-12-11] MEDS: MoRPHine SULFATE IR 15 MG TAB (IMMEDIATE RELEASE) PO SCH (08:40)
[2018-12-11] MEDS: TRIAMCINOLONE ACET 0.1% CR 80 GM TUBE EXT SCH (08:40)
[2018-12-11] MEDS: ASPIRIN 81 MG ECTAB PO SCH (08:40)
[2018-12-11] MEDS: predniSONE 5 MG TAB PO SCH (08:40)
[2018-12-11] MEDS: ENOXAPARIN INJ 30 MG/0.3 ML SYR SQ SCH (08:40)
[2018-12-11] MEDS: LACTOBACILLUS ACIDOPHILUS (FLORANEX) TAB PO SCH (08:40)
--- NOTE | 2018-12-11 16:59 | Discharge Summary ---
Date of Service December 11, 2018 Admission HPI Per Admitting Provider 88-year-old female here for shortness of breath and dyspnea on exertion. Patient is here with family at bedside. History of sick contacts flu positive at home. Patient was found to be flu a positive here and chest x-ray findings suspicious for left lower lobe pneumonia. Patient also found to have slightly elevated troponins. Tamiflu and doxycycline begun in the emergency room. 1-2 L on nasal cannula increased oxygen demand. Patient is apparently connected with outpatient hospice care, hospice care nurse was here today in the emergency room. Hospice was revoked in order to have acute care. Concern for failure to thrive at home. PMH 1. Asthma 2. Benign essential tremor 3. CAD 4. CKD stage IV 5. Hypertension 6. Hypothyroidism 7. Mobitz type II AV block 8. Peripheral edema 9. History of pelvic mass, conservative management, on hospice. PSH 1. Appendectomy 2. Cholecystectomy 3. Tonsillectomy 4. Vaginal hysterectomy SH: Lives with her 2 daughters and a grandchild. Is currently on hospice although hospice revoked for this hospital stay. Ambulates with a walker. Denies T/E/D. FH: Noncontributory due to age Principal Diagnosis acute respiratory failure with hypoxia influenza pneumonia Discharge Exam Constitutional well developed and average body habitus Eyes no conjunctival abnormality and no scleral abnormality Neck normal visual inspection and trachea midline Respiratory normal respiratory effort; no respiratory distress Auscultation: lungs clear to auscultation bilaterally Cardiovascular RRR, no murmur, no edema Gastrointestinal (Abdomen) normal bowel sounds, soft, nontender, no hepatosplenomegaly Musculoskeletal no cyanosis or clubbing, extremities motor strength 5/5 Discharge Data Allergies Allergy/AdvReac Type Severity Reaction Status Date / Time codeine Allergy Mild unk Verified 12/09/18 15:43 Penicillins Allergy Mild . Verified 12/09/18 15:43 erythromycin base Allergy Unknown . Verified 12/09/18 15:43 Sulfa (Sulfonamide Allergy Unknown Unknown Verified 12/09/18 15:43 Antibiotics) banana AdvReac Mild GI symptoms Verified 12/09/18 15:43 cefuroxime [From Ceftin] AdvReac Diarrhea Verified 12/09/18 15:50 Cantaloupe AdvReac Mild GI Uncoded 12/09/18 15:43 SYMPTOMS FROM UNSPECIFIED MELONS Consultations 12/09/18 20:21 ED Decision to Admit Stat 12/09/18 22:40 Consult Case Management - Discharge Planning Routine Hospital Course (1) Influenza A: 88F here for acute SOB and found to be FLU A + by PCR, and LLL suspicious for pneumonia on CXR. FLU A +, complicated by PNA and significant comorbidities -tamiflu, renally dosed Elev troponins Demand ischemia -pt denies ischemic symptoms -trend has been upward but still considering supply demand mismatch Hospice care pt, pt will not return to home hospice but will have home health -apparently family is struggling to take care of her at home CODE STATUS: FULL no mech vent as confirmed with pt and Adilene daughter at bedside. (2) Pneumonia: influenza pneumonia (3) Elevated troponin: Demand ischemia (4) Hypoxia: (5) Hypertension: (6) Asthma: (7) CKD (chronic kidney disease) stage 4, GFR 15-29 ml/min: (8) Anxiety: (9) Venous stasis dermatitis of both lower extremities: (10) Mobitz (type) II atrioventricular block: (11) Vitamin D deficiency: (12) Hypothyroid: (13) CAD (coronary artery disease): (14) Hospice care patient: (15) Chronic pain: Total Time Total Time Spent Total Time Spent (In Minutes): greater than 30 minutes were required to prepare discharge Discharge Plan Discharge Items Patient Disposition: Home - Home Health Services Reason For Visit: FLU, PNA, HYPOXIA Discharge Diagnosis: influenza pneumonia Discharge Goals: Decrease discomfort, Diagnostic testing and Improve disease control Activity: Resume your previous activity Non-emergency contact: Primary Care Provider Call non-emergency contact if: you have any medication questions Follow-up/Referrals: Mil Durand [Primary Care Provider] - 12/14/18 2:00 pm (Please, follow up with Dr. Durand on MondayDecember 14 at 2:00 pm. If you need to change the appointment, call the office at [phone].) Diet: Regular Addtl Provider Instructions: Please avoid contact with other people while you are taking your flu medicine please complete your flu medicine Prescriptions: New oseltamivir [Tamiflu] 30 mg capsule 30 mg PO DAILY Qty: 3 RF: 0 Continue prednisone 5 mg Tablet 5 mg PO DAILY RF: 0 aspirin 81 mg Tablet,Delayed Release (Dr/Ec) 81 mg PO DAILY RF: 0 lorazepam 0.5 mg Tablet 0.5 mg PO Q4 RF: 0 levothyroxine 50 mcg Tablet 50 mcg PO DAILY RF: 0 promethazine 25 mg Tablet 25 mg PO Q6H PRN (Reason: Nausea) RF: 0 hydroxyzine HCl 25 mg Tablet 25 mg PO TID RF: 0 albuterol sulfate [Ventolin HFA] 90 mcg/actuation Hfa Aerosol Inhaler 1 puff INHALATION Q6H PRN (Reason: Shortness Of Breath) RF: 0 morphine 15 mg Tablet 15 mg PO BID RF: 0 mirtazapine 7.5 mg Tablet 7.5 mg PO DAILY RF: 0 cholecalciferol (vitamin D3) [Vitamin D3] 1,000 unit Tablet 1,000 unit PO QPM RF: 0 Bifidobacterium infantis [Align] 4 mg Capsule 4 mg PO DAILY RF: 0 Stand-Alone Forms: [facility] Discharge Orders: Discharge Order (Routine); Ordered 12/11/18 Ordered By: Sherwin Ding Admission Data Admit Date/Time: 12/09/18 21:19 Attending Provider: Sherwin Ding Admit Provider: Zeynep Cornejo Primary Care Provider: Mil Durand Other Providers: Zeynep Cornejo Service: Medical Other Interventions: Discharge Summary Assessment (RN) Last Done: 12/11/18 14:33 DC Date/Time DO NOT enter until pt leaves facility: 12/11/18 15:52
== END 2018-12-11 15:52 | disposition home health service (06) | DRG 193 ==
LOC: ED 15:20 → 2W 21:19 → SUATTDRO 21:19 → 2W 22:05

== ENCOUNTER 2019-02-21 00:35 | Inpatient (IN) ==
[2019-02-21] MEDS ORDERED: GI COCKTAIL ED USE PO ONE (00:58)
[2019-02-21] MEDS ORDERED: SUCRALFATE 1 GM TAB PO STA (00:58)
[2019-02-21] MEDS ORDERED: ONDANSETRON INJ 2 MG/ML 2 ML VIAL IV STA (00:58)
[2019-02-21] MEDS ORDERED: FAMOTIDINE 20 MG TAB PO ONE (00:58)
[2019-02-21] MEDS ORDERED: MoRPHine SULFATE 2 MG/ML CARP IV STA (00:58)
[2019-02-21] MEDS ORDERED: SODIUM CHLORIDE 0.9% 500 ML IV SCH (01:00)
[2019-02-21 01:18] LABS: Basophils # (auto) 0.02 K/uL (0-0.2); Basophils % (auto) 0.2 %; Eosinophils # (auto) 0.23 K/uL (0-0.5); Eosinophils % (auto) 2.9 %; Hematocrit (blood only) 35.8 % (37-47); Hemoglobin 11.3 g/dL (12.0-16.0); Immature Granulocytes # (auto) 0.02 K/uL (0.00-0.02); Immature Granulocytes % (auto) 0.2 %; Lymphocytes # (auto) 1.22 K/uL (1.2-3.4); Lymphocytes % (auto) 15.2 %; Mean Corpuscular Hgb Conc 31.6 g/dL (32-36); Mean Corpuscular Volume 97.5 fL (80-100); Mean Platelet Volume 10.3 fL (7.4-10.4); Monocytes # (auto) 0.76 K/uL (0.11-0.59); Monocytes % (auto) 9.4 %; Neutrophils % (auto) 72.1 %; Platelet Count 217 K/uL (130-400); RDW Coefficient of Variation 15.8 % (11.5-14.5); RDW Standard Deviation 56.1 fL (36.4-46.3); Red Blood Count 3.67 M/uL (4.2-5.4); White Blood Count 8.05 K/uL (4.8-10.8)
[2019-02-21] MEDS ORDERED: IOVERSOL 100ml IV PRN (01:55)
[2019-02-21 02:35] LABS: Alanine Aminotransferase 13 U/L (12-78); Albumin Level 2.8 gm/dl (3.4-5.0); BUN Creatinine Ratio 20.8 (10-20); Blood Urea Nitrogen 32 mg/dl (7-18); Carbon Dioxide 25 mmol/L (21-32); Chloride 108 mmol/L (98-107); Creatinine Clr Calc Pharmacy 16.8 ml/min; Est GFR (African American) 34.9; Est GFR (Non-African American) 30.1; Glucose 87 mg/dl (70-99); Sodium 138 mmol/L (136-145)
[2019-02-21 02:46] LABS: Alkaline Phosphatase 33 U/L (45-117); Bilirubin,Total 0.5 mg/dl (0.2-1); Creatine Kinase MB 1.8 ng/ml (0.5-3.6); Globulin 2.8 gm/dl (2.5-4.0); Total Protein 5.6 gm/dl (6.4-8.2); Troponin I 0.023 ng/ml (0-0.045)
[2019-02-21 03:18] LABS: Appearance Urine Clear (Clear); Bacteria Urine Automated Negative (Negative); Bilirubin Urine Negative (Negative); Blood Urine Negative (Negative); Color Urine Yellow; Glucose Urine UA Negative (Negative); Ketones Urine Negative (Negative); Leukocyte Esterase Urine 1+ (Negative); Nitrite Urine Negative (Negative); Protein Urine Negative (Negative); RBC Urine Automated 0-4 /hpf (0-4); Specific Gravity Urine 1.022 (1.000-1.030); Urobilinogen Urine Negative (Negative); pH Urine 7.5 (4.5-7.5)
[2019-02-21] MEDS ORDERED: LORazepam 0.25 MG/0.5 ML VIAL IV STA (03:53)
[2019-02-21] MEDS ORDERED: ACETAMINOPHEN 1000 MG/100 ML IV IV PRN (05:03)
--- NOTE | 2019-02-21 05:08 | History & Physical Report ---
Date of Service February 21, 2019 Assessment & Plan (1) Small bowel obstruction: Acute small bowel obstruction/cecal and ascending colon mass-- NG tube to low intermittent suction. NPO NSS at 100 mils per hour Cipro 100 mg IV every 12 hours. Flagyl 500 mg IV every 8 hours. Zofran 4 mg IV every 6 hours as needed. Famotidine 20 mg IV every 12 hours. Consult general surgery. Present on Admission?: Yes (2) Mass of colon: As above. Present on Admission?: Yes (3) Lesion of left lung: CT of chest that shows a left lower lobe lobulated lesion 11 mm in size concerning for malignancy. Question of primary lesion versus metastasis. No pulmonary symptoms at this time. Present on Admission?: Yes (4) CAD (coronary artery disease): CAD/hypertension/Mobitz type II AV block-- Hold aspirin. Consult cardiology Dr. Melendez. He will need to be determined her ability to withstand surgery should that decision be made Present on Admission?: Yes (5) Mobitz (type) II atrioventricular block: As above.. Present on Admission?: Yes (6) Anxiety: Given lorazepam 0.25 mg IV x1 to help with anxiety and deal with discomfort of NG tube. Nurses will call if additional as needed. Present on Admission?: Yes (7) CKD (chronic kidney disease) stage 4, GFR 15-29 ml/min: Creatinine 1.52 upon admission, is toward the lower end of her range of 1.51-2.57. Follow laboratory serially. NSS noted above. Present on Admission?: Yes (8) Hypothyroid: On levothyroxine 50 mcg p.o. daily outpatient setting. Present on Admission?: Yes (9) Chronic pain: Morphine 15 mg p.o. twice daily as outpatient. Placed on morphine 4 mg IV every 4 hours as needed. Monitor contribution to bowel obstruction symptoms. Present on Admission?: Yes History of Present Illness Chief Complaint: The patient presents to the emergency department with acute onset of severe abdominal discomfort. Primary Care Provider: Mil Durand The patient is a 89-year-old female with a past medical history including CKD stage IV, Mobitz type II AV block, hypothyroidism, anxiety, asthma, hypertension who presents to the emergency department with acute onset of severe abdominal pain. Allergies Allergy/AdvReac Type Severity Reaction Status Date / Time codeine Allergy Unknown CAN'T Verified 02/21/19 02:40 REMEMBER erythromycin base Allergy Unknown CAN'T Verified 02/21/19 02:40 REMEMBER Penicillins Allergy Unknown CAN'T Verified 02/21/19 02:40 REMEMBER Sulfa (Sulfonamide Allergy Unknown CAN'T Verified 02/21/19 02:40 Antibiotics) REMEMBER cefuroxime [From Ceftin] AdvReac Intermediate Diarrhea Verified 02/21/19 02:40 banana AdvReac Mild GI symptoms Verified 02/21/19 02:40 Cantaloupe AdvReac Mild GI Uncoded 02/21/19 02:40 SYMPTOMS FROM UNSPECIFIED MELONS Home Medications Home Medications Medication Instructions Recorded Confirmed Type aspirin 81 mg PO DAILY 11/29/18 02/21/19 History cholecalciferol (vitamin D3) 1,000 unit PO QPM 11/29/18 02/21/19 History [Vitamin D3] levothyroxine 50 mcg PO DAILY 11/29/18 02/21/19 History morphine 15 mg PO BID 11/29/18 02/21/19 History prednisone 5 mg PO DAILY 11/29/18 02/21/19 History promethazine 25 mg PO Q6H PRN 11/29/18 02/21/19 History Past Med/Surg History Medical History Hypertension (Resolved) Asthma (Chronic) Acute kidney injury superimposed on chronic kidney disease (Resolved) Chronic kidney disease (Chronic) Back fracture Elevated troponin Epigastric abdominal pain Ischemic colitis Nausea and vomiting Sepsis due to cellulitis Surgical History H/O: hysterectomy S/P appendectomy S/P cholecystectomy Family History Other No significant family history Social History Preferred Language: Turkmen Communication Ability: Effective Beliefs That Will Affect Care: None marital status: / Current Living Situation: Family Feels Safe at Home: Yes Smoking Status: Never smoker Hx Alcohol Use: No Hx Substance Use: No Review of Systems Review of Systems: The patient denies chest pain, palpitations, shortness of breath, dyspnea on exertion, cough, lower extremity swelling, sore throat, fevers, chills, sweats, blood in urine or stool, dysuria, urinary frequency or urgency, loss of consciousness, rash, imbalance, focal weakness, numbness or tingling in arms or legs, generalized arthralgias or myalgias, back or neck pain, or night sweats. The review of systems is otherwise negative other than for that already noted above, and at least 10 systems have been reviewed. Physical Exam Vital Signs (Past 24 Hours): Last Vital Signs Temp 37.3 C 02/21/19 00:41 Pulse 97 H 02/21/19 04:04 Resp 21 02/21/19 04:04 BP 130/81 02/21/19 04:04 Pulse Ox 97 02/21/19 04:04 Physical Exam: The patient is awake, alert and oriented 3, very anxious, lying in bed and in mild to moderate acute distress secondary to abdominal discomfort. HEENT--PERRL, EOMI, mucous membranes and oropharynx dry. Neck--supple. No JVD. No bruits. Thyroid normal, trachea midline, no adenopathy. Heart--normal S1 and S2. No murmurs, rubs or gallops. Lungs--clear bilaterally, no respiratory distress, no accessory muscle use. Abdomen--decreased bowel sounds. Mildly distended and tympanitic. Extremities--no cyanosis or clubbing. No edema. There are good distal pulses b/l. Dermatologic--normal skin turgor, normal color. scattered ecchymoses Neurologic--cranial nerves II through XII grossly intact. Rheumatologic--normal range of motion. Psychiatric--anxious and fearful. Results & Data Laboratory Results Laboratory Results WBC 8.05 K/uL (4.8-10.8) 02/21/19 01:04 RBC 3.67 M/uL (4.2-5.4) L 02/21/19 01:04 Hgb 11.3 g/dL (12.0-16.0) L 02/21/19 01:04 Hct 35.8 % (37-47) L 02/21/19 01:04 MCV 97.5 fL (80-100) 02/21/19 01:04 MCH 30.8 pg (25-34) 02/21/19 01:04 MCHC 31.6 g/dL (32-36) L 02/21/19 01:04 RDW Std Deviation 56.1 fL (36.4-46.3) H 02/21/19 01:04 RDW Coeff of Rashida 15.8 % (11.5-14.5) H 02/21/19 01:04 Plt Count 217 K/uL (130-400) 02/21/19 01:04 MPV 10.3 fL (7.4-10.4) 02/21/19 01:04 Immature Gran % (Auto) 0.2 % 02/21/19 01:04 Neut % (Auto) 72.1 % 02/21/19 01:04 Lymph % (Auto) 15.2 % 02/21/19 01:04 [place] % (Auto) 9.4 % 02/21/19 01:04 Eos % (Auto) 2.9 % 02/21/19 01:04 Baso % (Auto) 0.2 % 02/21/19 01:04 Immature Gran # (Auto) 0.02 K/uL (0.00-0.02) 02/21/19 01:04 Neut # (Auto) 5.80 K/uL (1.4-6.5) 02/21/19 01:04 Lymph # (Auto) 1.22 K/uL (1.2-3.4) 02/21/19 01:04 [place] # (Auto) 0.76 K/uL (0.11-0.59) H 02/21/19 01:04 Eos # (Auto) 0.23 K/uL (0-0.5) 02/21/19 01:04 Baso # (Auto) 0.02 K/uL (0-0.2) 02/21/19 01:04 Sodium 138 mmol/L (136-145) 02/21/19 02:06 Potassium mmol/L (3.5-5.1) 02/21/19 02:06 Chloride 108 mmol/L (98-107) H 02/21/19 02:06 Carbon Dioxide 25 mmol/L (21-32) 02/21/19 02:06 Anion Gap 5.0 (3-11) 02/21/19 02:06 BUN 32 mg/dl (7-18) H 02/21/19 02:06 Creatinine 1.52 mg/dl (0.6-1.2) H 02/21/19 02:06 Est Cr Clr Drug Dosing 16.8 ml/min 02/21/19 02:06 Est GFR ( Amer) 34.9 02/21/19 02:06 Est GFR (Non-Af Amer) 30.1 02/21/19 02:06 BUN/Creatinine Ratio 20.8 (10-20) H 02/21/19 02:06 Glucose 87 mg/dl (70-99) 02/21/19 02:06 Calcium 8.0 mg/dl (8.5-10.1) L 02/21/19 02:06 Total Bilirubin 0.5 mg/dl (0.2-1) 02/21/19 02:06 AST U/L (15-37) 02/21/19 02:06 ALT 13 U/L (12-78) 02/21/19 02:06 Alkaline Phosphatase 33 U/L (45-117) L 02/21/19 02:06 Total Creatine Kinase U/L (26-192) 02/21/19 02:06 CK-MB (CK-2) 1.8 ng/ml (0.5-3.6) 02/21/19 02:06 CK/CKMB % Calc Cancelled 02/21/19 01:04 Troponin I 0.023 ng/ml (0-0.045) 02/21/19 02:06 Total Protein 5.6 gm/dl (6.4-8.2) L 02/21/19 02:06 Albumin 2.8 gm/dl (3.4-5.0) L 02/21/19 02:06 Globulin 2.8 gm/dl (2.5-4.0) 02/21/19 02:06 Albumin/Globulin Ratio 1.0 (0.9-2) 02/21/19 02:06 Lipase 62 U/L (73-393) L 02/21/19 02:06 Urine Color Yellow 02/21/19 03:08 Urine Appearance Clear (Clear) 02/21/19 03:08 Urine pH 7.5 (4.5-7.5) 02/21/19 03:08 Ur Specific [place] 1.022 (1.000-1.030) 02/21/19 03:08 Urine Protein Negative (Negative) 02/21/19 03:08 Urine Glucose (UA) Negative (Negative) 02/21/19 03:08 Urine Ketones Negative (Negative) 02/21/19 03:08 Urine Blood Negative (Negative) 02/21/19 03:08 Urine Nitrite Negative (Negative) 02/21/19 03:08 Urine Bilirubin Negative (Negative) 02/21/19 03:08 Urine Urobilinogen Negative (Negative) 02/21/19 03:08 Ur Leukocyte Esterase 1+ (Negative) H 02/21/19 03:08 Urine WBC (Auto) 1-5 /hpf (0-5) 02/21/19 03:08 Urine RBC (Auto) 0-4 /hpf (0-4) 02/21/19 03:08 U Hyaline Cast (Auto) 1-5 /lpf (0-5) 02/21/19 03:08 U Epithel Cells (Auto) 5-10 /lpf (0-5) H 02/21/19 03:08 Urine Bacteria (Auto) Negative (Negative) 02/21/19 03:08 Code Status & VTE Plan VTE Prophylaxis Plan VTE Prophylaxis will be ordered: Yes
[2019-02-21] MEDS ORDERED: ACETAMINOPHEN 1,000 MG/100 ML VIAL IV PRN (05:09)
[2019-02-21] MEDS ORDERED: CIPROFLOXACIN CONSULT ACTIVE PRN (05:40)
[2019-02-21] MEDS: SODIUM CHLORIDE 0.9% 1000ML 1,000 ML IV SCH ×2 (05:53→19:11)
[2019-02-21] MEDS: metroNIDAZOLE 500 MG/100 ML BAG IV SCH ×3 (06:02→20:42)
[2019-02-21] MEDS: CIPROFLOXACIN 400 MG/200 ML BAG IV SCH (07:02)
--- NOTE | 2019-02-21 07:41 | CT Scan Report ---
CT SCAN OF THE CHEST, ABDOMEN, AND PELVIS WITH IV CONTRAST CLINICAL HISTORY: Fall. Epigastric abdominal pain. COMPARISON STUDY: Chest CT dated 11/09/2016. Abdominal CT dated 06/23/2018. TECHNIQUE: Following the IV administration of 92 of Optiray 320, CT scan of the chest, abdomen, and p justine was performed from the thoracic inlet to the proximal femora. Images are reviewed in the axial, sagittal, and coronal planes. IV contrast was administered without complication. A dose lowering t echnique was utilized adhering to the principles of ALARA. The examination is compromised by motion a rtifact, as well as by streak artifact from the arms which could not be elevated above the chest or a bdomen. CT DOSE: 390.79 mGy.cm FINDINGS: CHEST: Thyroid: Imaged portions of the thyroid gland are normal in size and attenuation. Thoracic aorta: The thoracic aorta is normal in caliber and demonstrates 4vessel variant arch anatomy . No dissection is seen. Pulmonary vasculature: The pulmonary trunk is normal in caliber. There are no filling defects identif ied in the central pulmonary vessels to indicate pulmonary embolus. Note that this examination was no t protocoled for evaluation of the pulmonary arteries. Heart: The heart is mildly enlarged and without pericardial effusion. The coronary arteries are dense ly calcified. Lungs and pleural spaces: Evaluation of the lung parenchyma is degraded by motion artifact. Emphysema tous change is noted. There is no airspace consolidation typical for pneumonia or pleural effusion. B ibasilar atelectasis is observed. There are scattered calcified granulomas. There is a 1.3 cm irregul ar nodule in the superior segment of the left lower lobe seen on image #103. This is new from 7 and highly concerning for neoplasm. A 4 mm pleural-based nodule in the lingula on image #170 and #3 mm right upper lobe nodule on image #49 are unchanged. The trachea and central airways are clear. No pneumothorax is identified. Mediastinum: There is no mediastinal hematoma or lymphadenopathy. [place]: Clear. Axillae: There is no axillary lymphadenopathy. Bony thorax: The skeletal structures are osteopenic. The bony thorax appears intact. Degenerative julio nge and kyphoscoliosis are noted throughout the thoracic spine. Advanced arthritic change is seen in the shoulders. No lytic or blastic lesions are identified. Chronic posttraumatic deformity is noted i n the partially imaged right humeral shaft. ABDOMEN AND PELVIS: Liver: The contrast-enhanced liver is normal in size, contour, and attenuation. There is no intrahepa tic or ductal dilatation. The hepatic veins and portal veins are patent. Gallbladder: Surgically absent noting clips in the gallbladder fossa. Spleen: Normal in size and attenuation. There are numerous calcified splenic granulomas. Pancreas: Atrophic and grossly unremarkable. Adrenal glands: Unremarkable. Kidneys: The contrast enhanced kidneys are atrophic and without hydronephrosis. The kidneys enhance s ymmetrically. Abdominal vasculature: The abdominal aorta is normal in course and caliber noting mild atheroscleroti c calcification. Bowel: There is a suggestion of a mass lesion involving the cecum, best seen in the right lower quadr ant image #176. This likely causes some degree of small bowel obstruction. The small bowel loops are distended and fluid-filled measuring up to 2.5 cm diameter. The cecum is decompressed. There is mild to moderate sigmoid diverticulosis without CT evidence of acute diverticulitis. The appendix is not identified and reported surgically absent. Peritoneum: There is trace perihepatic and abdominopelvic ascites. No intraperitoneal free air is see n. There is a large fat-containing ventral hernia. Lymphadenopathy: There are mildly enlarged mesenteric lymph nodes in the right lower quadrant which m easure up to 8 mm short axis (axial image #163). Pelvic viscera: The bladder is normal as imaged. The uterus is surgically absent. No adnexal lesion i s seen. Skeletal structures: The skeletal structures are osteopenic. There is a moderate to severe and acute appearing compression fracture of L1. There is surrounding paravertebral edema. Retropulsed fragments eccentric to the right cause high-grade central canal stenosis. No additional fracture is seen invol ving the lumbar spine or bony pelvis. The proximal femora are preserved. There is moderate to advance d lumbosacral spondylosis, with grade 1 anterolisthesis at L4-L5 and L5-S1.. Arthritic change is also seen in the hips. No lytic or blastic lesions are seen. IMPRESSION: 1. Streak and motion compromised examination. 2. There is an acute appearing burst type fracture of the L1 vertebral body. Retropulsed fragments ca use severe central canal stenosis at this level. 3. No additional fracture is identified. 4. Cardiomegaly and mild emphysema. 5. Findings are highly concerning for a cecal mass. 6. The cecal mass likely causes mild obstruction, as the upstream small bowel loops are mildly disten ded and fluid-filled and the colon is decompressed. 7. There is a 1.3 cm irregular pulmonary nodule in the superior segment of the left lower lobe. This is new from 11/09/2016 and is highly concerning for neoplasm. A primary pulmonary neoplasm is favored. 8. There is no airspace consolidation, pleural effusion, or pneumothorax. 9. Trace abdominopelvic ascites. 10. Additional findings as above. Electronically signed by: Mukesh Alvarado M.D. 02/21/2019 7:40 AM
[2019-02-21 08:11] LABS: Partial Thromboplastin Ratio 0.8; Partial Thromboplastin Time 22.7 Seconds (21.0-31.0); Prothrombin Time 10.2 Seconds (9.0-12.0)
[2019-02-21] MEDS: HEPARIN SOD 5,000 UNIT/0.5 ML VIAL SQ SCH ×2 (09:11→20:41)
[2019-02-21 09:18] LABS: iSTAT Creatinine 1.6 mg/dl (0.6-1.3); iSTAT Hemoglobin 12.2 g/dl (12.0-16.0); iSTAT Ionized Calcium 1.05 mmol/l (1.12-1.32); iSTAT Potassium 8.5 mEq/L (3.3-5.0)
--- NOTE | 2019-02-21 09:49 | Hospitalist Progress Note ---
Date of Service February 21, 2019 Assessment & Plan (1) Small bowel obstruction: Acute small bowel obstruction/cecal and ascending colon mass-- NG tube to low intermittent suction. Cipro 100 mg IV every 12 hours. Flagyl 500 mg IV every 8 hours. Zofran 4 mg IV every 6 hours as needed. Famotidine 20 mg IV every 12 hours. Consult general surgery planning a possible resection of the anastomosis to avoid bowel obstruction this will be more of a palliative and a curative approach. (2) Mass of colon: As above. (3) Lesion of left lung: CT of chest that shows a left lower lobe lobulated lesion 11 mm in size c oncerning for malignancy. Question of primary lesion versus metastasis. No pulmonary symptoms at this time. (4) CAD (coronary artery disease): CAD/hypertension/Mobitz type II AV block-- Hold aspirin. Consult cardiology Dr. Melendez. Surgery may be more of a requirement for palliation she does have a history of heart block but does not appear to be in heart block at this present time and surgery should be considered life or limb she will likely need to be proceed with the surgery with caution however we will discuss with cardiology (5) Mobitz (type) II atrioventricular block: As above.. (6) Anxiety: Given lorazepam 0.25 mg IV x1 to help with anxiety and deal with discomfort of NG tube. (7) CKD (chronic kidney disease) stage 4, GFR 15-29 ml/min: Creatinine 1.52 upon admission, is toward the lower end of her range of 1.51-2.57. Follow laboratory serially. NSS noted above. (8) Hypothyroid: On levothyroxine 50 mcg p.o. daily outpatient setting. (9) Chronic pain: Morphine 15 mg p.o. twice daily as outpatient. Placed on morphine 4 mg IV every 4 hours as needed. Subjective Patient is markedly tearful about her dilemma she still has mild abdominal pain and nausea is tolerating NG tube Review of Systems Review of Systems: ROS: well nourished well developed. No double vision blurry vision No problems with speech or swallowing No palpitations, chest pain or pressure No Wheezing or breathing issues Abdominal pain and nausea No burning urine urine frequency or changes in color No focal joint pain or muscle pain No skin rashes or oral lesions No unusual bruising or bleeding No focused back pain or numbness or loss of strength No changes in memory or confusion Physical Exam Physical Exam: The patient appeared mild to moderate distress Vital signs as documented. Head exam is unremarkable. normocephalic, atraumatic Neck is without jugular venous distension, thyromegaly, or lymphademopathy Lungs are clear to auscultation but decreased at the bases Cardiac exam reveals Rhythm is regular. First and second heart sounds normal. Abdominal exam reveals hypoactive bowel sounds, tender Extremities are nonedematous and both pedal pulses are present Neurologic exam is A&Ox3, she is tearful mildly forgetful Skin is warm Dry Results & Data Vital Signs (Past 12 Hours) Vital Signs Temp Pulse Pulse Resp BP BP BP 02/21/19 07:00 37.0 C 70 16 137/68 02/21/19 05:03 36.9 C 86 20 99/66 L 02/21/19 04:04 97 H 21 130/81 02/21/19 02:14 02/21/19 02:12 91 H 20 153/73 H 02/21/19 00:41 37.3 C 83 22 133/104 H Pulse Ox 02/21/19 07:00 93 02/21/19 05:03 97 02/21/19 04:04 97 02/21/19 02:14 96 02/21/19 02:12 88 L 02/21/19 00:41 95
--- NOTE | 2019-02-21 10:49 | Surgery Consultation ---
Date of Consultation February 21, 2019 Assessment & Plan (1) Mass of colon: Patient admitted with a colonic mass causing at least a partial small bowel obstruction. The patient does not need an emergency operation. I did mention to her that she has a colon mass that we may need to remove the mass. He did become somewhat upset at the thought of surgery. She does have 2 daughters who have tried to contact have left messages. For now we will continue with the NG tube and IV fluids. Pending on whether we proceed with surgery she may need parenteral nutrition and we will ask the GI team to see the patient if there would be any consideration of stent placement. It is doubtful we will proceed with surgery today, possibly tomorrow or next week. History of Present Illness Attending Physician: Sherwin Ding MD History of Present Illness Patient is an 89-year-old female presenting to the emergency room with abdominal pain. Her workup included a CAT scan of the abdomen which showed mildly dilated small bowel and what appears to be in the cecum. It does appear he has at least a partial bowel obstruction from a colonic mass. CT scan of the chest also shows an 11 mm nodule in the left lower lobe which may be a metastatic nodule. Patient does have a history of chronic renal insufficiency, AV block, hypertension, asthma, and hypothyroidism Currently she is in no distress and is responsive with an NG tube in place. Allergies Allergy/AdvReac Type Severity Reaction Status Date / Time codeine Allergy Unknown CAN'T Verified 02/21/19 02:40 REMEMBER erythromycin base Allergy Unknown CAN'T Verified 02/21/19 02:40 REMEMBER Penicillins Allergy Unknown CAN'T Verified 02/21/19 02:40 REMEMBER Sulfa (Sulfonamide Allergy Unknown CAN'T Verified 02/21/19 02:40 Antibiotics) REMEMBER cefuroxime [From Ceftin] AdvReac Intermediate Diarrhea Verified 02/21/19 02:40 banana AdvReac Mild GI symptoms Verified 02/21/19 02:40 Cantaloupe AdvReac Mild GI Uncoded 02/21/19 02:40 SYMPTOMS FROM UNSPECIFIED MELONS Home Medications Home Medications Medication Instructions Recorded Confirmed Type aspirin 81 mg PO DAILY 11/29/18 02/21/19 History cholecalciferol (vitamin D3) 1,000 unit PO QPM 11/29/18 02/21/19 History [Vitamin D3] levothyroxine 50 mcg PO DAILY 11/29/18 02/21/19 History morphine 15 mg PO BID 11/29/18 02/21/19 History prednisone 5 mg PO DAILY 11/29/18 02/21/19 History promethazine 25 mg PO Q6H PRN 11/29/18 02/21/19 History Patient History Medical History Hypertension (Resolved) Asthma (Chronic) Acute kidney injury superimposed on chronic kidney disease (Resolved) Chronic kidney disease (Chronic) Back fracture Elevated troponin Epigastric abdominal pain Ischemic colitis Nausea and vomiting Sepsis due to cellulitis Surgical History H/O: hysterectomy S/P appendectomy S/P cholecystectomy Family History Other No significant family history Social History Preferred Language: Hungarian Communication Ability: Effective 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 He is very responsive and alert and seems to have a normal affect. She is not complaining of any abdominal pain her mucous membranes are mildly dry sclera are anicteric neck is supple. She is having no respiratory difficulties. Her abdomen appears to be relatively soft with some bowel sounds. Results & Data Vital Signs (Past 12 Hours) Vital Signs Temp Pulse Pulse Resp BP BP BP 02/21/19 07:00 37.0 C 70 16 137/68 02/21/19 05:03 36.9 C 86 20 99/66 L 02/21/19 04:04 97 H 21 130/81 02/21/19 02:14 02/21/19 02:12 91 H 20 153/73 H 02/21/19 00:41 37.3 C 83 22 133/104 H Pulse Ox 02/21/19 07:00 93 02/21/19 05:03 97 04/18/19 04:04 97 02/21/19 02:14 96 02/21/19 02:12 88 L 02/21/19 00:41 95
[2019-02-21] MEDS: ACETAMINOPHEN 65 ML IV PRN ×2 (11:15→19:13)
--- NOTE | 2019-02-21 12:07 | Anesthesiology Consultation ---
Date of Service Patient was seen by Dr. Melendez. He stated that the patient does not need any further evaluation prior to her upcoming surgery. Assessment & Plan (1) Encounter for pre-operative examination: Chart Review Patient seen by cardiology. Please see their consultation note. No further testing needed. History Surgery Operation Date: 02/25/19 08:25 Proposed Procedures p Right Open Colon Resection with Kirit - Jordan Urbina MD, FACS Height/Weight Height: 4 ft 9 in Weight: 42.5 kg Allergies Allergy/AdvReac Type Severity Reaction Status Date / Time codeine Allergy Unknown CAN'T Verified 02/21/19 02:40 REMEMBER erythromycin base Allergy Unknown CAN'T Verified 02/21/19 02:40 REMEMBER Penicillins Allergy Unknown CAN'T Verified 02/21/19 02:40 REMEMBER Sulfa (Sulfonamide Allergy Unknown CAN'T Verified 02/21/19 02:40 Antibiotics) REMEMBER cefuroxime [From Ceftin] AdvReac Intermediate Diarrhea Verified 02/21/19 02:40 banana AdvReac Mild GI symptoms Verified 02/21/19 02:40 melon AdvReac Verified 02/23/19 13:47 Cantaloupe AdvReac Mild GI Uncoded 02/21/19 02:40 SYMPTOMS FROM UNSPECIFIED MELONS Medications Home Medications Medication Instructions Recorded Confirmed Last Taken aspirin 81 mg PO DAILY 11/29/18 02/21/19 02/20/19 cholecalciferol (vitamin D3) 1,000 unit PO QPM 11/29/18 02/21/19 02/20/19 [Vitamin D3] levothyroxine 50 mcg PO DAILY 11/29/18 02/21/19 02/20/19 morphine 15 mg PO BID 11/29/18 02/21/19 02/20/19 prednisone 5 mg PO DAILY 11/29/18 02/21/19 02/20/19 promethazine 25 mg PO Q6H PRN 11/29/18 02/21/19 12/01/18 Active Medications Generic Name Dose Route Start Last Admin Trade Name Freq PRN Reason Stop Dose Admin Heparin Sodium (Porcine) 5,000 units 02/21/19 09:00 02/24/19 09:58 Heparin Sodium (Porcine) SQ 03/23/19 08:59 5,000 units Q12 DEBBY Administration Sodium Chloride 1,000 mls @ 80 mls/hr 02/21/19 05:03 02/24/19 14:28 Nss 1000ml IV 03/23/19 05:02 80 mls/hr .[id number] DEBBY Administration Ciprofloxacin 400 mg in 200 mls @ 200 mls/hr 02/21/19 06:00 02/24/19 07:32 Cipro IV 03/03/19 05:59 Infused Q24H DEBBY Infusion Protocol Metronidazole 500 mg in 100 mls @ 100 mls/hr 02/21/19 06:00 02/24/19 15:50 Flagyl IV 03/03/19 05:59 Infused Q8H DEBBY Infusion Acetaminophen 65 mls @ 260 mls/hr 02/21/19 05:45 02/23/19 13:50 Ofirmev IV 03/23/19 05:44 Infused Q6H PRN Infusion Pain or Fever Lorazepam 0.5 mg in 1 mls @ 0.5 mls/min 02/22/19 12:46 02/22/19 13:50 Ativan IV 03/24/19 12:45 0.5 mls/min Q4H PRN Administration Agitation Ioversol 100 ml 02/21/19 01:55 02/21/19 01:55 Optiray 320 100ml IV 02/25/19 01:54 92 ml ONCE PRN Administration Interaction Checking Morphine Sulfate 4 mg 02/21/19 05:09 02/24/19 16:21 Morphine Sulfate IV 03/07/19 05:08 4 mg Q4H PRN Administration Severe Pain Ondansetron HCl 4 mg 02/21/19 05:03 02/24/19 12:17 Zofran IV 03/23/19 05:02 4 mg Q6H PRN Administration Nausea Phenol 2 sprays 02/22/19 13:56 02/23/19 10:24 Chloraseptic 1.4% [place] 03/24/19 13:55 2 sprays Q1H PRN Administration Sore Throat Past Medical History Medical History Lesion of left lung Mass of colon Small bowel obstruction Sacral ulcer (Chronic) 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) CAD (coronary artery disease) (Chronic) Mobitz (type) II atrioventricular block (Chronic) Hypertension (Resolved) Asthma (Chronic) Acute kidney injury superimposed on chronic kidney disease (Resolved) Chronic kidney disease (Chronic) Back fracture Elevated troponin Epigastric abdominal pain Ischemic colitis Nausea and vomiting Sepsis due to cellulitis Past Family History Family History Other No significant family history Past Surgical History Surgical History H/O: hysterectomy S/P appendectomy S/P cholecystectomy Social History Smoking Status: Never smoker Hx Alcohol Use: No Hx Substance Use: No substance use type: does not use Physical Exam Vital Signs Last Vital Signs Temp 36.7 C 02/24/19 15:29 Pulse 87 02/24/19 15:29 Resp 18 02/24/19 15:29 BP 152/75 H 02/24/19 15:29 Pulse Ox 92 02/24/19 15:29 Testing Electrocardiogram Date: 02/21/19 Sinus rhythm Premature atrial complexes Left axis deviation Incomplete right bundle branch block Anteroseptal infarct (cited on or before 01-MAR-2014) Abnormal ECG When compared with ECG of 21-FEB-2019 01:09, (unconfirmed) No significant change Echocardiogram Date: 02/22/19 EF: 45% Valvular Disease: + MR Other Testing CHEST CT 02/2019 IMPRESSION: 1. Streak and motion compromised examination. 2. There is an acute appearing burst type fracture of the L1 vertebral body. Retropulsed fragments cause severe central canal stenosis at this level. 3. No additional fracture is identified. 4. Cardiomegaly and mild emphysema. 5. Findings are highly concerning for a cecal mass. 6. The cecal mass likely causes mild obstruction, as the upstream small bowel loops are mildly distended and fluid-filled and the colon is decompressed. 7. There is a 1.3 cm irregular pulmonary nodule in the superior segment of the left lower lobe. This is new from 11/09/2016 and is highly concerning for neoplasm. A primary pulmonary neoplasm is favored. 8. There is no airspace consolidation, pleural effusion, or pneumothorax. 9. Trace abdominopelvic ascites. 10. Additional findings as above. Laboratory Results 02/22/19 07:38 02/24/19 08:25 Blood Type A Positive 02/24/19 08:25 Antibody Screen NEGATIVE 02/24/19 08:25 PT 10.8 Seconds (9.0-12.0) 02/24/19 07:18 INR 1.1 (0.9-1.1) 02/24/19 07:18 APTT 29.8 Seconds (21.0-31.0) 02/22/19 07:20 Urine Color Yellow 02/21/19 03:08 Urine Appearance Clear (Clear) 02/21/19 03:08 Urine pH 7.5 (4.5-7.5) 02/21/19 03:08 Ur Specific Bernie 1.022 (1.000-1.030) 02/21/19 03:08 Urine Protein Negative (Negative) 02/21/19 03:08 Urine Glucose (UA) Negative (Negative) 02/21/19 03:08 Urine Ketones Negative (Negative) 02/21/19 03:08 Urine Nitrite Negative (Negative) 02/21/19 03:08 Ur Leukocyte Esterase 1+ (Negative) H 02/21/19 03:08 Urine WBC (Auto) 1-5 /hpf (0-5) 02/21/19 03:08 Urine RBC (Auto) 0-4 /hpf (0-4) 02/21/19 03:08 U Hyaline Cast (Auto) 1-5 /lpf (0-5) 02/21/19 03:08 U Epithel Cells (Auto) 5-10 /lpf (0-5) H 02/21/19 03:08 Urine Bacteria (Auto) Negative (Negative) 02/21/19 03:08 02/21/19 01:15 POC Glucose (other) 99
[2019-02-21] MEDS: MoRPHine SULFATE 4 MG/ML 1 ML CARP\\VIAL IV PRN ×2 (16:57→22:53)
--- NOTE | 2019-02-21 19:50 | Medical Student Progress Note ---
Date of Service February 21, 2019 Assessment & Plan (1) Lesion of left lun.3 cm irregular nodule of LLL seen on CT of chest. Unsure if primary or metastatic disease. Present on Admission?: Yes (2) Mass of colon: Seen on CT scan in cecum, cause of small bowel obstruction. See below for plan Present on Admission?: Yes (3) Small bowel obstruction: Cecal mass causing obstruction. 1. NPO with ice chips 2. NG decompression with a slow suction rate 3. IV fluids at maintenance rate 4. Cipro 100 mg IV q12 and Flagyl 500 mg IV q8h for bacterial translocation prophylaxis 5. Zofran 4 mg IV q6h and Famotidine 20 mg IV q12h 6. Consulted surgery, Dr. Urbina and anesthesia will wait for cardiology's recommendations. She understands that surgery is the only way to fix the obstruction. She is tearful about proceeding with surgery, and she wishes for input from her daughters. Present on Admission?: Yes (4) Chronic pain: Morphine 4 mg IV q4h for pain, R hip and left knee painful, so IV Tylenol 65 ml given Present on Admission?: Yes (5) Hypothyroid: continue home levothyroxine 50 mcg PO daily Present on Admission?: Yes (6) Mobitz (type) II atrioventricular block: Both EKGs show no evidence of Mobitz II AV block. Consideration for surgery because any Mobitz II AV block could progress to complete AV block under general anesthesia. However, her surgery would be life saving, and she has no EKG evidence. We will wait for cardiology's (Dr. Melendez) recommendations. Present on Admission?: Yes (7) Anxiety: Continues to experience anxiety regarding her cancer diagnosis and proce eding with surgery. Ordered lorazepam .25 mg IV Present on Admission?: Yes (8) CKD (chronic kidney disease) stage 4, GFR 15-29 ml/min: Current creatinine is 1.52 which is at the lower end of her baseline of 1.51-2.57. Continue to check BMPs to monitor througout her hospital course Present on Admission?: Yes Subjective Genitourinary (Female): no urinary frequency and no urinary urgency Marli is an 89 year old woman with a past medical history of CKD stage IV, Mobitz type II AV block, hypothyroid, anxiety, asthma, and HTN who presented to the ED early this morning with severe abdominal pain. In the ED, she was determined to have a cecal mass causing a small bowel obstruction. This morning, her abdominal pain is well controlled when she is sitting still, but her pain worsens even with small movements. She became tearful when talking about surgery and her probable cancer diagnosis. She is unsure if she wants to proceed with surgery, and she understands that surgery is the only option. She is very uncomfortable with her NG tube. It hurts her throat and is causing her to cough. Constitutional: no fever and no chills Eyes: no dry eyes, no itchy eyes and no worsening vision Ear, Nose, Mouth, Throat: + sore throat and + pain with swallowing from NG tube Respiratory: + cough; no dyspnea Cardiovascular: no chest pain and no palpitations Gastrointestinal: + abdominal pain and + bloating Musculoskeletal: no muscle weakness R hip and L knee pain Integumentary: no rash bruising of left eye Neurologic: no numbness and no paresthesia Psychiatric: + hopelessness anxious and tearful about condition Endocrine: no polydipsia and no polyuria Hematologic / Lymphatic: + easy bruising; no night sweats Allergy / Immunological: no GI upset with certain foods and no itchy eyes Physical Exam Vital Signs (Past 24 Hours): Last Vital Signs Temp 36.4 C L 02/21/19 15:06 Pulse 84 02/21/19 15:06 Resp 18 02/21/19 15:06 BP 141/73 H 02/21/19 15:06 Pulse Ox 96 02/21/19 15:06 Constitutional: alert and cooperative but in some distress Eyes: + anicteric sclerae tearing in her eyes from crying ENMT: Mouth: + dry oral mucous membranes NG in nose Neck: normal visual inspection Respiratory: normal respiratory effort, lungs clear to auscultation Cardiovascular: Rate/Rhythm: regular rate and regular rhythm Heart Sounds: no murmur Gastrointestinal (Abdomen): Inspection/Auscultation: + hypoactive bowel sounds distended, tender in epigastric region Musculoskeletal: 1+ edema in lower extremities Skin: left periorbital ecchymosis Psychiatric: anxious and tearful about surgery and cancer diagnosis Results & Data Laboratory Results BUN: 32 Cr: 1.52 Protein: 5.6 Albumin: 2.8 Calcium: 8.0 Diagnostic Findings Abdominal and chest CT: IMPRESSION: 1. Streak and motion compromised examination. 2. There is an acute appearing burst type fracture of the L1 vertebral body. Retropulsed fragments cause severe central canal stenosis at this level. 3. No additional fracture is identified. 4. Cardiomegaly and mild emphysema. 5. Findings are highly concerning for a cecal mass. 6. The cecal mass likely causes mild obstruction, as the upstream small bowel loops are mildly distended and fluid-filled and the colon is decompressed. 7. There is a 1.3 cm irregular pulmonary nodule in the superior segment of the left lower lobe. This is new from 11/09/2016 and is highly concerning for neoplasm. A primary pulmonary neoplasm is favored. 8. There is no airspace consolidation, pleural effusion, or pneumothorax. 9. Trace abdominopelvic ascites. 10. Additional findings as above. ECG Additional Comments: Initial EKG done in ER shows no evidence of Mobitz II AV block. Repeat EKG done because of possible hyperkalemia (8.5), no changes seen in 2nd EKG that would be consistent with hyperkalemia. Repeat K level was 4.4.
--- NOTE | 2019-02-22 01:06 | Emergency Department Note ---
Entered by Serafin Swanson acting as a scribe for History of Present Illness General Chief complaint: Abdominal Pain Time Seen by Provider: 02/21/19 00:52 Source: patient History of Present Illness Provider complaint: Abdominal pain Onset (ago): day(s) (past few days) Location: abdomen Pain Consistency: + other (worsening) Maximum Pain Intensity: 10 Current Pain Intensity: 8 Quality: + other (abdominal pain) Associated symptoms: + fever/chills (-fever, +chills); no nausea/vomiting The patient is an 89 year old female who presents to the Emergency Room with complaints of abdominal pain that has worsened over the past few days. The patient reports that she has a hernia and notes that this is the cause of the pain. She rates her pain as an 8/10 in severity. She admits to being very cold. The patent denies any vomiting. Home Medications Home Medications Medication Instructions Recorded Confirmed Type aspirin 81 mg PO DAILY 11/29/18 02/21/19 History cholecalciferol (vitamin D3) 1,000 unit PO QPM 11/29/18 02/21/19 History [Vitamin D3] levothyroxine 50 mcg PO DAILY 11/29/18 02/21/19 History morphine 15 mg PO BID 11/29/18 02/21/19 History prednisone 5 mg PO DAILY 11/29/18 02/21/19 History promethazine 25 mg PO Q6H PRN 11/29/18 02/21/19 History Allergies Allergy/AdvReac Type Severity Reaction Status Date / Time codeine Allergy Unknown CAN'T Verified 02/21/19 02:40 REMEMBER erythromycin base Allergy Unknown CAN'T Verified 02/21/19 02:40 REMEMBER Penicillins Allergy Unknown CAN'T Verified 02/21/19 02:40 REMEMBER Sulfa (Sulfonamide Allergy Unknown CAN'T Verified 02/21/19 02:40 Antibiotics) REMEMBER cefuroxime [From Ceftin] AdvReac Intermediate Diarrhea Verified 02/21/19 02:40 banana AdvReac Mild GI symptoms Verified 02/21/19 02:40 Cantaloupe AdvReac Mild GI Uncoded 02/21/19 02:40 SYMPTOMS FROM UNSPECIFIED MELONS Past Med/Surg History Medical History Lesion of left lung Mass of colon Small bowel obstruction Sacral ulcer (Chronic) 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) CAD (coronary artery disease) (Chronic) Mobitz (type) II atrioventricular block (Chronic) Hypertension (Resolved) Asthma (Chronic) Acute kidney injury superimposed on chronic kidney disease (Resolved) Chronic kidney disease (Chronic) Back fracture Elevated troponin Epigastric abdominal pain Ischemic colitis Nausea and vomiting Sepsis due to cellulitis Surgical History H/O: hysterectomy S/P appendectomy S/P cholecystectomy Family History Other No significant family history Social History Preferred Language: [place] Citizen Communication Ability: Effective 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 and A total of 10 systems reviewed and were otherwise negative Physical Exam Vital Signs Vital Signs - 24 hr 02/21/19 02:12 02/21/19 02:14 02/21/19 04:04 Temperature Temperature Source Pulse Rate [Finger] 91 H 97 H Pulse Rate [Right Finger] Pulse Rhythm [Finger] Pulse Strength [Finger] Respiratory Rate 20 21 Respiratory Effort / Characteristics Non-Labored Spontaneous Respiratory Depth Normal Respiratory Pattern Blood Pressure [Left Arm] 153/73 H 130/81 Blood Pressure [Right Arm] Blood Pressure Mean [Left Arm] 99 97 Blood Pressure Mean [Right Arm] Blood Pressure Position [Left Arm] Lying Blood Pressure Position [Right Arm] Pulse Oximetry 88 L 96 97 Oxygen Delivery Method Room Air Nasal Cannula Room Air Oxygen Flow Rate 2 02/21/19 05:03 02/21/19 05:22 02/21/19 07:00 Temperature 36.9 C 37.0 C Temperature Source Oral Oral Pulse Rate [Finger] 86 70 Pulse Rate [Right Finger] Pulse Rhythm [Finger] Regular Pulse Strength [Finger] Normal Respiratory Rate 20 16 Respiratory Effort / Characteristics Non-Labored Spontaneous Non-Labored Spontaneous Respiratory Depth Normal Normal Respiratory Pattern Regular Regular Blood Pressure [Left Arm] 99/66 L Blood Pressure [Right Arm] 137/68 Blood Pressure Mean [Left Arm] 77 Blood Pressure Mean [Right Arm] 91 Blood Pressure Position [Left Arm] Blood Pressure Position [Right Arm] Lying Pulse Oximetry 97 93 Oxygen Delivery Method Room Air Room Air Room Air Oxygen Flow Rate 02/21/19 15:06 02/21/19 23:16 Temperature 36.4 C L 34.6 C L Temperature Source Oral Oral Pulse Rate [Finger] 84 Pulse Rate [Right Finger] 73 Pulse Rhythm [Finger] Pulse Strength [Finger] Respiratory Rate 18 14 Respiratory Effort / Characteristics Respiratory Depth Normal Respiratory Pattern Blood Pressure [Left Arm] 141/73 H 130/60 Blood Pressure [Right Arm] Blood Pressure Mean [Left Arm] 95 83 Blood Pressure Mean [Right Arm] Blood Pressure Position [Left Arm] Lying Lying Blood Pressure Position [Right Arm] Pulse Oximetry 96 94 Oxygen Delivery Method Room Air Room Air Oxygen Flow Rate GENERAL: Awake, alert, well-appearing, in no distress HENT: Normocephalic, atraumatic. Oropharynx unremarkable. EYES: Normal conjunctiva. Sclera non-icteric. NECK: Inspection normal. Non-tender. Supple. No nuchal rigidity. FROM. No masses. RESPIRATORY: Clear to auscultation. No wheezes. No rales. Normal respiratory effort. CARDIAC: Normal rate. Normal rhythm. No murmurs. No rubs. Extremities warm and well perfused. Pulses equal. No JVD. GI: Soft, non-distended. Tender in epigastric region. No rebound or guarding. No masses. RECTAL: Deferred. MUSCULOSKELETAL: Atraumatic. Chest examination reveals no tenderness. The back is symmetrical on inspection without obvious abnormality. There is no CVA tenderness to palpation. No joint edema. LOWER EXTREMITIES: Calves are equal size bilaterally and non-tender. No edema. No discoloration. NEURO: Normal sensorium. No sensory or motor deficits noted. SKIN: No rash or jaundice noted. Course 0054: The patient was evaluated in room C11B, and a complete history and physical examination were performed. The patient's hernia was reduced upon physical exam. 0325: I reviewed the patient's case with Dr. Bose, [facility]. He will evaluate the patient for further management. Consultations [facility] Time: 03:25 Administered Medications Heparin Sodium (Porcine) (Heparin Sodium (Porcine)) 5,000 units SQ Q12 DEBBY Stop: 03/23/19 08:59 Last Admin: 02/21/19 20:41 Dose: 5,000 units Documented by: [id number] Cosigned by: [id number] Admin: 02/21/19 09:11 Dose: 5,000 units Documented by: [id number] Cosigned by: [id number] Sodium Chloride (Nss 1000ml) 1,000 mls @ 80 mls/hr IV .[id number] [facility] Stop: 03/23/19 05:02 Last Admin: 02/21/19 19:11 Dose: 80 mls/hr Documented by: [id number] Infusion: 02/21/19 18:23 Dose: 80 mls/hr Documented by: [id number] Admin: 02/21/19 05:53 Dose: 80 mls/hr Documented by: [id number] Ciprofloxacin (Cipro) 400 mg in 200 mls @ 200 mls/hr IV Q24H [facility]; Protocol Stop: 03/03/19 05:59 Last Infusion: 02/21/19 08:02 Dose: 0 mls/hr Documented by: [id number] Admin: 02/21/19 07:02 Dose: 200 mls/hr Documented by: [id number] Metronidazole (Flagyl) 500 mg in 100 mls @ 100 mls/hr IV Q8H [facility] Stop: 03/03/19 05:59 Last Infusion: 02/21/19 22:11 Dose: 0 mls/hr Documented by: [id number] Admin: 02/21/19 20:42 Dose: 100 mls/hr Documented by: [id number] Infusion: 02/21/19 15:52 Dose: 0 mls/hr Documented by: [id number] Admin: 02/21/19 14:09 Dose: 100 mls/hr Documented by: [id number] Infusion: 02/21/19 06:57 Dose: 0 mls/hr Documented by: [id number] Admin: 02/21/19 06:02 Dose: 100 mls/hr Documented by: [id number] Acetaminophen (Ofirmev) 65 mls @ 260 mls/hr IV Q6H PRN PRN Reason: Pain or Fever Stop: 03/23/19 05:44 Last Infusion: 02/21/19 19:33 Dose: 0 mls/hr Documented by: [id number] Admin: 02/21/19 19:13 Dose: 260 mls/hr Documented by: [id number] Infusion: 02/21/19 12:23 Dose: 0 mls/hr Documented by: [id number] Admin: 02/21/19 11:15 Dose: 260 mls/hr Documented by: [id number] Ioversol (Optiray 320 100ml) 100 ml IV ONCE PRN PRN Reason: Interaction Checking Stop: 02/25/19 01:54 Last Admin: 02/21/19 01:55 Dose: 92 ml Documented by: [id number] Morphine Sulfate (Morphine Sulfate) 4 mg IV Q4H PRN PRN Reason: Severe Pain Stop: 03/07/19 05:08 Last Admin: 02/21/19 22:53 Dose: 4 mg Documented by: [id number] Admin: 02/21/19 16:57 Dose: 4 mg Documented by: [id number] Discontinued Medications Al Hydrox/Mg Hydrox/Simethicone () 1 dose PO ONE ONE Stop: 02/21/19 00:59 Last Admin: 02/21/19 01:13 Dose: 1 dose Documented by: [id number] Famotidine (Pepcid) 20 mg PO NOW ONE Stop: 02/21/19 00:59 Last Admin: 02/21/19 01:13 Dose: 20 mg Documented by: [id number] Sodium Chloride (Nss) 500 mls @ 999 mls/hr IV .Q31M [facility]BB[facility] Stop: 02/21/19 01:30 Last Infusion: 02/21/19 02:00 Dose: 0 mls/hr Documented by: [id number] Admin: 02/21/19 01:16 Dose: 999 mls/hr Documented by: [id number] Lorazepam (Ativan) 0.25 mg in 0.5 mls @ 0.5 mls/min IV NOW STA Stop: 02/21/19 03:54 Last Admin: 02/21/19 04:02 Dose: 0.5 mls/min Documented by: [id number] Morphine Sulfate (Morphine Sulfate) 2 mg IV NOW STA Stop: 02/21/19 00:59 Last Admin: 02/21/19 01:17 Dose: 2 mg Documented by: [id number] Ondansetron HCl (Zofran) 4 mg IV NOW STA Stop: 02/21/19 00:59 Last Admin: 02/21/19 01:13 Dose: 4 mg Documented by: [id number] Sucralfate (Carafate Tab) 1 gm PO NOW STA Stop: 02/21/19 00:59 Last Admin: 02/21/19 01:13 Dose: 1 gm Documented by: [id number] Medical Decision Making Differential Diagnosis Differential diagnosis: Etiologies such as appendicitis, diverticulitis, PUD, biliary pathology, UTI, pancreatitis, obstruction, mesenteric ischemia, aortic pathology, infections, inflammatory bowel disease, renal colic, as well as others were entertained. Medical Records Attestation: I reviewed the patient's medical records. Home Medications Current Medication List: was personally reviewed by me Laboratory Data Attestation: I reviewed the patient's lab results. Result diagrams: 02/21/19 01:04 02/21/19 07:46 Lab Results 02/21/19 02/21/19 02/21/19 Range/Units 01:04 01:04 01:15 WBC 8.05 (4.8-10.8) K/uL RBC 3.67 L (4.2-5.4) M/uL Hgb 11.3 L (12.0-16.0) g/dL POC Hgb 12.2 (12.0-16.0) g/dl Hct 35.8 L (37-47) % POC Hct 36 L (37-47) % MCV 97.5 (80-100) fL MCH 30.8 (25-34) pg MCHC 31.6 L (32-36) g/dL RDW Std Deviation 56.1 H (36.4-46.3) fL RDW Coeff of Rashida 15.8 H (11.5-14.5) % Plt Count 217 (130-400) K/uL MPV 10.3 (7.4-10.4) fL Immature Gran % (Auto) 0.2 % Neut % (Auto) 72.1 % Lymph % (Auto) 15.2 % Gove % (Auto) 9.4 % Eos % (Auto) 2.9 % Baso % (Auto) 0.2 % Immature Gran # (Auto) 0.02 (0.00-0.02) K/uL Neut # (Auto) 5.80 (1.4-6.5) K/uL Lymph # (Auto) 1.22 (1.2-3.4) K/uL Gove # (Auto) 0.76 H (0.11-0.59) K/uL Eos # (Auto) 0.23 (0-0.5) K/uL Baso # (Auto) 0.02 (0-0.2) K/uL PT (9.0-12.0) Seconds INR (0.9-1.1) APTT (21.0-31.0) Seconds PTT Ratio POC Sodium 134 L (135-144) mEq/L Sodium Cancelled POC Potassium 8.5 H* (3.3-5.0) mEq/L Potassium Cancelled POC Chloride 104 (101-112) mEq/L Chloride Cancelled Carbon Dioxide Cancelled POC Total CO2 27 (24-31) mEq/l Anion Gap Cancelled POC Anion Gap 12.0 L (16-25) mmol/L POC BUN 50 H (7-18) mg/dl BUN Cancelled Creatinine Cancelled POC Creatinine 1.6 H (0.6-1.3) mg/dl Est Cr Clr Drug Dosing Cancelled Est GFR ( Amer) Cancelled Est GFR (Non-Af Amer) Cancelled BUN/Creatinine Ratio Cancelled Glucose Cancelled POC Glucose (other) 99 (70-99) mg/dl Calcium Cancelled POC Ioniz Calcium Mercedes 1.05 L (1.12-1.32) mmol/l Total Bilirubin Cancelled AST Cancelled ALT Cancelled Alkaline Phosphatase Cancelled Total Creatine Kinase Cancelled CK-MB (CK-2) Cancelled CK/CKMB % Calc Cancelled Troponin I Cancelled Total Protein Cancelled Albumin Cancelled Globulin Cancelled Albumin/Globulin Ratio Cancelled Lipase Cancelled Urine Color Urine Appearance (Clear) Urine pH (4.5-7.5) Ur Specific [place] (1.000-1.030) Urine Protein (Negative) Urine Glucose (UA) (Negative) Urine Ketones (Negative) Urine Blood (Negative) Urine Nitrite (Negative) Urine Bilirubin (Negative) Urine Urobilinogen (Negative) Ur Leukocyte Esterase (Negative) Urine WBC (Auto) (0-5) /hpf Urine RBC (Auto) (0-4) /hpf U Hyaline Cast (Auto) (0-5) /lpf U Epithel Cells (Auto) (0-5) /lpf Urine Bacteria (Auto) (Negative) Blood Type Antibody Screen 02/21/19 02/21/19 02/21/19 Range/Units 02:06 03:08 07:46 WBC (4.8-10.8) K/uL RBC (4.2-5.4) M/uL Hgb (12.0-16.0) g/dL POC Hgb (12.0-16.0) g/dl Hct (37-47) % POC Hct (37-47) % MCV (80-100) fL MCH (25-34) pg MCHC (32-36) g/dL RDW Std Deviation (36.4-46.3) fL RDW Coeff of Rashida (11.5-14.5) % Plt Count (130-400) K/uL MPV (7.4-10.4) fL Immature Gran % (Auto) % Neut % (Auto) % Lymph % (Auto) % Gove % (Auto) % Eos % (Auto) % Baso % (Auto) % Immature Gran # (Auto) (0.00-0.02) K/uL Neut # (Auto) (1.4-6.5) K/uL Lymph # (Auto) (1.2-3.4) K/uL Gove # (Auto) (0.11-0.59) K/uL Eos # (Auto) (0-0.5) K/uL Baso # (Auto) (0-0.2) K/uL PT 10.2 (9.0-12.0) Seconds INR 1.0 (0.9-1.1) APTT 22.7 (21.0-31.0) Seconds PTT Ratio 0.8 POC Sodium (135-144) mEq/L Sodium 138 POC Potassium (3.3-5.0) mEq/L Potassium POC Chloride (101-112) mEq/L Chloride 108 H Carbon Dioxide 25 POC Total CO2 (24-31) mEq/l Anion Gap 5.0 POC Anion Gap (16-25) mmol/L POC BUN (7-18) mg/dl BUN 32 H Creatinine 1.52 H POC Creatinine (0.6-1.3) mg/dl Est Cr Clr Drug Dosing 16.8 Est GFR ( Amer) 34.9 Est GFR (Non-Af Amer) 30.1 BUN/Creatinine Ratio 20.8 H Glucose 87 POC Glucose (other) (70-99) mg/dl Calcium 8.0 L POC Ioniz Calcium Mercedes (1.12-1.32) mmol/l Total Bilirubin 0.5 AST ALT 13 Alkaline Phosphatase 33 L Total Creatine Kinase CK-MB (CK-2) 1.8 CK/CKMB % Calc Troponin I 0.023 Total Protein 5.6 L Albumin 2.8 L Globulin 2.8 Albumin/Globulin Ratio 1.0 Lipase 62 L Urine Color Yellow Urine Appearance Clear (Clear) Urine pH 7.5 (4.5-7.5) Ur Specific [place] 1.022 (1.000-1.030) Urine Protein Negative (Negative) Urine Glucose (UA) Negative (Negative) Urine Ketones Negative (Negative) Urine Blood Negative (Negative) Urine Nitrite Negative (Negative) Urine Bilirubin Negative (Negative) Urine Urobilinogen Negative (Negative) Ur Leukocyte Esterase 1+ H (Negative) Urine WBC (Auto) 1-5 (0-5) /hpf Urine RBC (Auto) 0-4 (0-4) /hpf U Hyaline Cast (Auto) 1-5 (0-5) /lpf U Epithel Cells (Auto) 5-10 H (0-5) /lpf Urine Bacteria (Auto) Negative (Negative) Blood Type Antibody Screen 02/21/19 02/21/19 Range/Units 07:46 15:34 WBC (4.8-10.8) K/uL RBC (4.2-5.4) M/uL Hgb (12.0-16.0) g/dL POC Hgb (12.0-16.0) g/dl Hct (37-47) % POC Hct (37-47) % MCV (80-100) fL MCH (25-34) pg MCHC (32-36) g/dL RDW Std Deviation (36.4-46.3) fL RDW Coeff of Rashida (11.5-14.5) % Plt Count (130-400) K/uL MPV (7.4-10.4) fL Immature Gran % (Auto) % Neut % (Auto) % Lymph % (Auto) % Gove % (Auto) % Eos % (Auto) % Baso % (Auto) % Immature Gran # (Auto) (0.00-0.02) K/uL Neut # (Auto) (1.4-6.5) K/uL Lymph # (Auto) (1.2-3.4) K/uL Gove # (Auto) (0.11-0.59) K/uL Eos # (Auto) (0-0.5) K/uL Baso # (Auto) (0-0.2) K/uL PT (9.0-12.0) Seconds INR (0.9-1.1) APTT (21.0-31.0) Seconds PTT Ratio POC Sodium (135-144) mEq/L Sodium POC Potassium (3.3-5.0) mEq/L Potassium 4.4 POC Chloride (101-112) mEq/L Chloride Carbon Dioxide POC Total CO2 (24-31) mEq/l Anion Gap POC Anion Gap (16-25) mmol/L POC BUN (7-18) mg/dl BUN Creatinine POC Creatinine (0.6-1.3) mg/dl Est Cr Clr Drug Dosing Est GFR ( Amer) Est GFR (Non-Af Amer) BUN/Creatinine Ratio Glucose POC Glucose (other) (70-99) mg/dl Calcium POC Ioniz Calcium Mercedes (1.12-1.32) mmol/l Total Bilirubin AST ALT Alkaline Phosphatase Total Creatine Kinase CK-MB (CK-2) CK/CKMB % Calc Troponin I Total Protein Albumin Globulin Albumin/Globulin Ratio Lipase Urine Color Urine Appearance (Clear) Urine pH (4.5-7.5) Ur Specific [place] (1.000-1.030) Urine Protein (Negative) Urine Glucose (UA) (Negative) Urine Ketones (Negative) Urine Blood (Negative) Urine Nitrite (Negative) Urine Bilirubin (Negative) Urine Urobilinogen (Negative) Ur Leukocyte Esterase (Negative) Urine WBC (Auto) (0-5) /hpf Urine RBC (Auto) (0-4) /hpf U Hyaline Cast (Auto) (0-5) /lpf U Epithel Cells (Auto) (0-5) /lpf Urine Bacteria (Auto) (Negative) Blood Type A Positive Antibody Screen NEGATIVE Imaging Data Radiologist's Impression: Radiology results as stated below per my review and the radiologist's interpretation: CT ABDOMEN & PELVIS With Contrast: Enhancing nodular wall thickening/mass involving the cecum and ascending colon measuring 4.3 x 3.0 cm is concerning for malignancy. There are multiple loops of dilated small bowel which is concerning for acute small bowel obstruction. No free air is seen.Small amount of fluid in the pelvis is of unknown etiology. Old appearing fracture of L1 with 6 mm of bony retopulsion causing severe central spinal stenosis. Recommend correlation with neurologic symptoms. Status post cholecystectomy. No significant biliary dilation. Calcifications in the spleen probably represent prior granulomatous infection. Diverticulosis without acute diverticulitis. Moderate fat-containing umbilical hernia. Appendix is not clearly identified. Radiologist: Henrry Parekh MD Study ready at 01:57 and initial results transmitted at 02:24 CT CHEST With Contrast: No aortic dissection or aneurysm. No evidence of pulmonary emboli although this is non-and optimized study. 11 mm lobulated nodule in the left lower lobe is new from 2017 concerning for malignancy. No acute airspace opacities, pleural effusion or pneumothorax. Severe old appearing compression fracture of L1. Sagittal images were not provided to assess for retropulsion although is suspected. Recommend correlation with neurologic symptoms and consider MRI if clinically indicated. Radiologist: Henrry Parekh MD Study ready at 01:57 and inital results transmitted at 02:18 ECG Data Attestation: I personally reviewed and interpreted this ECG as follows: Indication: abdominal pain Rate (beats per minute): 84 Rhythm: sinus rhythm Findings: + other (old anteroseptal infarct) and + PVC (occasional ); no ST depression and no ST elevation Blood Pressure Blood Pressure Findings: Elevated blood pressure Blood Pressure Disposition: further management by hospitalist [facility] Narrative This is an 89-year-old female who presents emergency department complaining of chest and abdominal pain. Because of this the patient was sent for CAT scans of both the chest and abdomen. Chest the abdomen is concerning for a small bowel obstruction. For this reason an NG tube was placed. I did discuss the case with the hospitalist service who agreed to admit the patient. [facility] were in agreement with the treatment plan. Impression & Plan Small bowel obstruction, Mass of colon, Lesion of left lung, Chronic kidney disease Discharge Plan Visit Data *Final* Discharge Date/Time: 02/21/19 04:14 Chief Complaint: Abdominal Pain ED Provider: [place] Discharge Problem: Small bowel obstruction, Mass of colon, Lesion of left lung, Chronic kidney disease Patient Disposition: Admitted As Inpatient Discharge Instructions Interventions: ED Discharge Assessment Last Done: 02/21/19 04:14 The scribe's documentation has been prepared under my direction and personally reviewed by me in its entirety. I confirm that the note above accurately reflects all work, treatment, procedures, and medical decision making performed by me.
[2019-02-22] MEDS: MoRPHine SULFATE 4 MG/ML 1 ML CARP\\VIAL IV PRN ×4 (04:43→21:56)
[2019-02-22] MEDS: metroNIDAZOLE 500 MG/100 ML BAG IV SCH ×3 (05:19→20:46)
[2019-02-22] MEDS: CIPROFLOXACIN 400 MG/200 ML BAG IV SCH (06:57)
[2019-02-22 07:56] LABS: Partial Thromboplastin Ratio 1.1; Partial Thromboplastin Time 29.8 Seconds (21.0-31.0); Prothrombin Time 10.3 Seconds (9.0-12.0)
--- NOTE | 2019-02-22 07:57 | Progress Note ---
Date of Service February 22, 2019 Assessment & Plan (1) Mass of colon: cont supportive care- plan surgery Mon am- colon resection may need some ppn over weekend- cardiology to give suggestions pt will need surgery. consider ICU postop 1-[address] Joaquin covering over weekend check labs Subjective having knee pain, no abd pain awake, alert Physical Exam Physical Exam: abd soft, has visible peristalsis, nontender has umbilical hernia Results & Data Vital Signs (Past 12 Hours) Vital Signs Temp Pulse Resp BP Pulse Ox 02/21/19 23:16 34.6 C L 73 14 130/60 94
[2019-02-22 08:13] LABS: Albumin Level 2.9 gm/dl (3.4-5.0); BUN Creatinine Ratio 21.7 (10-20); Calcium 8.2 mg/dl (8.5-10.1); Creatinine Clr Calc Pharmacy 16.4 ml/min; Est GFR (African American) 37.9; Est GFR (Non-African American) 32.7; Potassium 4.2 mmol/L (3.5-5.1)
[2019-02-22 08:16] LABS: Bilirubin,Total 0.5 mg/dl (0.2-1); Globulin 2.8 gm/dl (2.5-4.0); Phosphorus 3.8 mg/dl (2.5-4.9); Total Protein 5.7 gm/dl (6.4-8.2)
[2019-02-22 09:07] LABS: Basophils # (auto) 0.02 K/uL (0-0.2); Basophils % (auto) 0.4 %; Eosinophils # (auto) 0.15 K/uL (0-0.5); Eosinophils % (auto) 2.7 %; Hemoglobin 10.2 g/dL (12.0-16.0); Immature Granulocytes # (auto) 0.03 K/uL (0.00-0.02); Immature Granulocytes % (auto) 0.5 %; Lymphocytes # (auto) 0.69 K/uL (1.2-3.4); Lymphocytes % (auto) 12.3 %; Mean Corpuscular Hgb Conc 30.9 g/dL (32-36); Mean Corpuscular Volume 98.2 fL (80-100); Mean Platelet Volume 9.9 fL (7.4-10.4); Monocytes # (auto) 0.55 K/uL (0.11-0.59); Monocytes % (auto) 9.8 %; Neutrophils # (auto) 4.16 K/uL (1.4-6.5); Neutrophils % (auto) 74.3 %; Platelet Count 216 K/uL (130-400); RDW Coefficient of Variation 15.7 % (11.5-14.5); Red Blood Count 3.36 M/uL (4.2-5.4)
[2019-02-22] MEDS: HEPARIN SOD 5,000 UNIT/0.5 ML VIAL SQ SCH ×2 (09:25→21:36)
--- NOTE | 2019-02-22 12:18 | Cardiology Consultation ---
Date of Consultation February 22, 2019 Assessment & Plan (1) Encounter for pre-operative examination: 1. Preoperative cardiovascular evaluation prior to colon resection 2. Presumed CAD 3. 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 Hypertension Patient is currently stable and asymptomatic from a cardiovascular standpoint. She denies angina or shortness of breath. She has no evidence of CHF or significant valvular abnormality. She has a history of intermittent 2:1 AV block while on beta parish therapy, but there has been no evidence of recurrence since the AV jailene blocking agent has been discontinued. Her last echocardiogram was in 2014, and will perform a repeat echocardiogram today to reevaluate her LV systolic function and wall motion in order to have more information going in to surgery. Otherwise, there is no indication for any further cardiovascular test ing/intervention prior to surgery. Recommend close monitoring and avoidance of hypotension, hypertension, tachycardia, hypoxia, and significant anemia throughout the perioperative period to reduce myocardial oxygen demand and meet myocardial oxygen delivery. Patient discussed with Dr. García who will also be in to see the patient today. Supervising Physician Co-Signing Physician Notes Patient seen and examined. Discussed with Phoebe. Agree with the above assessment. Her echocardiogram shows mildly reduced left ventricular function in a global manner with an ejection fraction of about 45%. I do not feel that we need any further evaluation prior to her upcoming surgery. History of Present Illness Reason for Consultation: Pre-operative cardiovascular evaluation History of Present Illness Mrs. 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 She was found have intermittent 2:1 AV block on 05/12/18 while on carvedilol in the emergency department after mechanical fall. She was hospitalized 03/01/14-03/04/14 for nausea and vomiting. Her symptoms lasted for 2-3 days. She was found to be dehydrated and had a peak troponin of 0.085. ECGs demonstrated sinus rhythm with evidence of septal infarct. A repeat ECG demonstrated T-wave inversion throughout the anterior leads. An echocardiogram was done which demonstrated an apical infarct but overall preserved systolic function. She then underwent a nuclear perfusion study which demonstrated apical infarct with bertram-infarct ischemia. During the hospitalization, she made it clear that she preferred not to undergo any invasive procedure at that time. Because she did not have any significant ischemia and was asymptomatic from a cardiac standpoint, invasive testing was not performed. She was hospitalized on 05/12/2018 after a mechanical fall. In the emergency department however she was found have an ECG which demonstrated sinus rhythm with 2-1 av block with a ventricular rate of 44 bpm. She was seen by electrophysiology who recommended discontinuation of carvedilol and was also arranged for a mobile monitoring coordinator which showed no high grade AV block. She has had the following studies: 1. Echo 03/02/14: Normal LV size with low-normal systolic function. EF 55%. Akinetic apex. Mild MR. Mild to moderate TR. RVSP 37 mmHg. 2. Nuclear stress 03/04/14: Distal anterior and apical infarct with mild bertram- infarct ischemia. EF 52%. Akinetic apex. 3. Lower extremity Doppler 01/01/2014: No significant stenosis/occlusion bilaterally. Mild atherosclerotic changes. 4. Echo 03/25/2015: Normal LV size with low-normal systolic function. EF 55%. Shelton not well visualized. Patient declined IV echo contrast. Cannot rule out wall motion abnormalities. No significant valvular abnormalities. RVSP 31. 5. Mobile monitoring coordinator 05/18/18-06/24/19: Sinus rhythm with PVCs. First degree AV block. Brief episodes of atrial fibrillation and other atrial arrh ythmia. Nonsustained VT up to 4 beats. She presented to the ED yesterday with abdominal pain, and was found to have a colonic mass causing at least a partial small bowel obstruction. She is now to undergo a possible bowel resection. She lives at home with her 2 daughters and she is largely inactive secondary to knee, hip, and back pain. She mostly just ambulates about her room and to the bathroom. She denies chest pain or shortness of breath. She denies orthopnea or PND. She notes chronic mild edema. She denies palpitations, lightheadedness, syncope, or presyncope. She denies abnormal bleeding such as melena, hematochezia, or hematuria. She denies cerebrovascular symptoms. As noted in HPI. All other ROS are reviewed and otherwise negative at this time. Family hx: Noncontributory given her advanced age and own disease. Social hx: She lives with her 2 daughters. She is a . She denies smoking or alcohol use. Allergies Allergy/AdvReac Type Severity Reaction Status Date / Time codeine Allergy Unknown CAN'T Verified 02/21/19 02:40 REMEMBER erythromycin base Allergy Unknown CAN'T Verified 02/21/19 02:40 REMEMBER Penicillins Allergy Unknown CAN'T Verified 02/21/19 02:40 REMEMBER Sulfa (Sulfonamide Allergy Unknown CAN'T Verified 02/21/19 02:40 Antibiotics) REMEMBER cefuroxime [From Ceftin] AdvReac Intermediate Diarrhea Verified 02/21/19 02:40 banana AdvReac Mild GI symptoms Verified 02/21/19 02:40 Cantaloupe AdvReac Mild GI Uncoded 02/21/19 02:40 SYMPTOMS FROM UNSPECIFIED MELONS Home Medications Home Medications Medication Instructions Recorded Confirmed Type aspirin 81 mg PO DAILY 11/29/18 02/21/19 History cholecalciferol (vitamin D3) 1,000 unit PO QPM 11/29/18 02/21/19 History [Vitamin D3] levothyroxine 50 mcg PO DAILY 11/29/18 02/21/19 History morphine 15 mg PO BID 11/29/18 02/21/19 History prednisone 5 mg PO DAILY 11/29/18 02/21/19 History promethazine 25 mg PO Q6H PRN 11/29/18 02/21/19 History Patient History Medical History Lesion of left lung Mass of colon Small bowel obstruction Sacral ulcer (Chronic) 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) CAD (coronary artery disease) (Chronic) Mobitz (type) II atrioventricular block (Chronic) Hypertension (Resolved) Asthma (Chronic) Acute kidney injury superimposed on chronic kidney disease (Resolved) Chronic kidney disease (Chronic) Back fracture Elevated troponin Epigastric abdominal pain Ischemic colitis Nausea and vomiting Sepsis due to cellulitis Surgical History H/O: hysterectomy S/P appendectomy S/P cholecystectomy Family History Other No significant family history Social History Preferred Language: Luxembourgish Communication Ability: Effective Resource Engineer Required: No Beliefs That Will Affect Care: None marital status: / Current Living Situation: Family Other Information That Helps Us Care for You: No Feels Safe at Home: Yes Safety Concerns: Feels Safe At This Time Smoking Status: Never smoker Hx Alcohol Use: No Hx Substance Use: No Physical Exam Physical Exam: Constitutional: Alert, oriented, in no acute distress HEENT: Ecchymosis around the eyes. EOMs intact. Sclera anicteric. Face is symmetric. No perioral cyanosis. Mucous membranes dry. NG in nose. Neck: Supple, no JVD Pulmonary: Normal respiratory effort, clear to auscultation bilaterally Cardiac: Regular rate and rhythm, normal S1 and S2, no gallops, no rubs, no murmurs Extremities: 1+ lower extremity edema bilaterally. No clubbing or cyanosis. Pulses intact Abdomen: Abdomen is distended and tender. Skin: Areas of ecchymosis, no rash, no skin lesions Neurological: Oriented to person, place, and time Results & Data Vital Signs (Past 12 Hours) Vital Signs Temp Pulse Resp BP Pulse Ox 02/22/19 07:50 36.8 C 72 12 122/77 98 Laboratory Results Laboratory Results WBC 5.60 K/uL (4.8-10.8) 02/22/19 07:38 RBC 3.36 M/uL (4.2-5.4) L 02/22/19 07:38 Hgb 10.2 g/dL (12.0-16.0) L 02/22/19 07:38 POC Hgb 12.2 g/dl (12.0-16.0) 02/21/19 01:15 Hct 33.0 % (37-47) L 02/22/19 07:38 POC Hct 36 % (37-47) L 02/21/19 01:15 MCV 98.2 fL (80-100) 02/22/19 07:38 MCH 30.4 pg (25-34) 02/22/19 07:38 MCHC 30.9 g/dL (32-36) L 02/22/19 07:38 RDW Std Deviation 56.0 fL (36.4-46.3) H 02/22/19 07:38 RDW Coeff of Rashida 15.7 % (11.5-14.5) H 02/22/19 07:38 Plt Count 216 K/uL (130-400) 02/22/19 07:38 MPV 9.9 fL (7.4-10.4) 02/22/19 07:38 Immature Gran % (Auto) 0.5 % 02/22/19 07:38 Neut % (Auto) 74.3 % 02/22/19 07:38 Lymph % (Auto) 12.3 % 02/22/19 07:38 [place] % (Auto) 9.8 % 02/22/19 07:38 Eos % (Auto) 2.7 % 02/22/19 07:38 Baso % (Auto) 0.4 % 02/22/19 07:38 Immature Gran # (Auto) 0.03 K/uL (0.00-0.02) H 02/22/19 07:38 Neut # (Auto) 4.16 K/uL (1.4-6.5) 02/22/19 07:38 Lymph # (Auto) 0.69 K/uL (1.2-3.4) L 02/22/19 07:38 [place] # (Auto) 0.55 K/uL (0.11-0.59) 02/22/19 07:38 Eos # (Auto) 0.15 K/uL (0-0.5) 02/22/19 07:38 Baso # (Auto) 0.02 K/uL (0-0.2) 02/22/19 07:38 PT 10.3 Seconds (9.0-12.0) 02/22/19 07:20 INR 1.0 (0.9-1.1) 02/22/19 07:20 APTT 29.8 Seconds (21.0-31.0) 02/22/19 07:20 PTT Ratio 1.1 02/22/19 07:20 POC Sodium 134 mEq/L (135-144) L 02/21/19 01:15 Sodium 141 mmol/L (136-145) 02/22/19 07:20 POC Potassium 8.5 mEq/L (3.3-5.0) H* 02/21/19 01:15 Potassium 4.2 mmol/L (3.5-5.1) 02/22/19 07:20 POC Chloride 104 mEq/L (101-112) 02/21/19 01:15 Chloride 110 mmol/L (98-107) H 02/22/19 07:20 Carbon Dioxide 21 mmol/L (21-32) 02/22/19 07:20 POC Total CO2 27 mEq/l (24-31) 02/21/19 01:15 Anion Gap 10.0 (3-11) 02/22/19 07:20 POC Anion Gap 12.0 mmol/L (16-25) L 02/21/19 01:15 POC BUN 50 mg/dl (7-18) H 02/21/19 01:15 BUN 31 mg/dl (7-18) H 02/22/19 07:20 Creatinine 1.42 mg/dl (0.6-1.2) H 02/22/19 07:20 POC Creatinine 1.6 mg/dl (0.6-1.3) H 02/21/19 01:15 Est Cr Clr Drug Dosing 16.4 ml/min 02/22/19 07:20 Est GFR ( Amer) 37.9 02/22/19 07:20 Est GFR (Non-Af Amer) 32.7 02/22/19 07:20 BUN/Creatinine Ratio 21.7 (10-20) H 02/22/19 07:20 Glucose 56 mg/dl (70-99) L 02/22/19 07:20 POC Glucose (other) 99 mg/dl (70-99) 02/21/19 01:15 Calcium 8.2 mg/dl (8.5-10.1) L 02/22/19 07:20 POC Ioniz Calcium Mercedes 1.05 mmol/l (1.12-1.32) L 02/21/19 01:15 Phosphorus 3.8 mg/dl (2.5-4.9) 02/22/19 07:20 Total Bilirubin 0.5 mg/dl (0.2-1) 02/22/19 07:20 AST 15 U/L (15-37) 02/22/19 07:20 ALT 12 U/L (12-78) 02/22/19 07:20 Alkaline Phosphatase 38 U/L (45-117) L 02/22/19 07:20 Total Creatine Kinase U/L (26-192) 02/21/19 02:06 CK-MB (CK-2) 1.8 ng/ml (0.5-3.6) 02/21/19 02:06 CK/CKMB % Calc Cancelled 02/21/19 01:04 Troponin I 0.023 ng/ml (0-0.045) 02/21/19 02:06 Total Protein 5.7 gm/dl (6.4-8.2) L 02/22/19 07:20 Albumin 2.9 gm/dl (3.4-5.0) L 02/22/19 07:20 Globulin 2.8 gm/dl (2.5-4.0) 02/22/19 07:20 Albumin/Globulin Ratio 1.0 (0.9-2) 02/22/19 07:20 Lipase 62 U/L (73-393) L 02/21/19 02:06 Urine Color Yellow 02/21/19 03:08 Urine Appearance Clear (Clear) 02/21/19 03:08 Urine pH 7.5 (4.5-7.5) 02/21/19 03:08 Ur Specific [place] 1.022 (1.000-1.030) 02/21/19 03:08 Urine Protein Negative (Negative) 02/21/19 03:08 Urine Glucose (UA) Negative (Negative) 02/21/19 03:08 Urine Ketones Negative (Negative) 02/21/19 03:08 Urine Blood Negative (Negative) 02/21/19 03:08 Urine Nitrite Negative (Negative) 02/21/19 03:08 Urine Bilirubin Negative (Negative) 02/21/19 03:08 Urine Urobilinogen Negative (Negative) 02/21/19 03:08 Ur Leukocyte Esterase 1+ (Negative) H 02/21/19 03:08 Urine WBC (Auto) 1-5 /hpf (0-5) 02/21/19 03:08 Urine RBC (Auto) 0-4 /hpf (0-4) 02/21/19 03:08 U Hyaline Cast (Auto) 1-5 /lpf (0-5) 02/21/19 03:08 U Epithel Cells (Auto) 5-10 /lpf (0-5) H 02/21/19 03:08 Urine Bacteria (Auto) Negative (Negative) 02/21/19 03:08 Blood Type A Positive 02/21/19 15:34 Antibody Screen NEGATIVE 02/21/19 15:34 Diagnostic Findings ECG: Sinus rhythm with PACs. IRBBB. Possible anteroseptal infarct.
[2019-02-22] MEDS: SODIUM CHLORIDE 0.9% 1000ML 1,000 ML IV SCH ×2 (13:14→23:40)
[2019-02-22] MEDS: LORazepam 0.5 MG/1 ML VIAL IV PRN (13:50)
[2019-02-22] MEDS ORDERED: CHLORASEPTIC 1.4% SOLN 180 ML BTL MT PRN (13:56)
--- NOTE | 2019-02-22 17:00 | Hospitalist Progress Note ---
Date of Service February 22, 2019 Assessment & Plan (1) Lesion of left lung: CT of chest that shows a left lower lobe lobulated lesion 11 mm in size concerning for malignancy. Question of primary lesion versus metastasis. Patient remains without pulmonary symptoms at this time (2) Mass of colon: Likely scheduled for bowel resection next week continue NG tube drainage hydration consideration of TPN (3) Small bowel obstruction: Acute small bowel obstruction/cecal and ascending colon mass-- NG tube to low intermittent suction. Cipro 100 mg IV every 12 hours. Flagyl 500 mg IV every 8 hours. Zofran 4 mg IV every 6 hours as needed. Famotidine 20 mg IV every 12 hours. Consult general surgery planning a possible resection of the anastomosis to avoid bowel obstruction this will be more of a palliative and a curative approach. (4) Chronic pain: Morphine 15 mg p.o. twice daily as outpatient. Placed on morphine 4 mg IV every 4 hours as needed. (5) Hypothyroid: (6) Mobitz (type) II atrioventricular block: Cardiology has seen the patient tachycardic and was performed a global reduction of EF but no significant valvular abnormalities (7) Anxiety: Given lorazepam 0.25 mg IV x1 to help with anxiety and deal with discomfort of NG tube. (8) CKD (chronic kidney disease) stage 4, GFR 15-29 ml/min: Has been stable continue hydration NSS noted above. Subjective pt is markedly tearful, is leaning toward surgery but becomes very emotional talking about it Review of Systems Review of Systems: ROS: well nourished well developed. No double vision blurry vision No problems with speech or swallowing No palpitations, chest pain or pressure No Wheezing or breathing issues Abdominal pain and nausea persists she is still without stool or flatus No burning urine urine frequency or changes in color No focal joint pain or muscle pain No skin rashes or oral lesions No unusual bruising or bleeding No focused back pain or numbness or loss of strength Is very emotional she is somewhat repetitive stories and may be mildly confused at the time Physical Exam Physical Exam: The patient appeared frail and very thin Vital signs as documented. Head exam is unremarkable. normocephalic, she is ecchymosis around her eye which was present on admission, NG tube is in her right nare Neck is without jugular venous distension, thyromegaly, or lymphademopathy Lungs are clear to auscultation and percussion. Cardiac exam reveals Rhythm is regular. Tachycardic with emotional Abdominal exam reveals hypoactive bowel sounds tympanitic and mildly distended Extremities are nonedematous and both pedal pulses are present Neurologic exam is A&Ox3, no focal deficits, strength is equal bilateral Psychologically seems both anxious and depressed Skin is warm Dry Results & Data Vital Signs (Past 12 Hours) Vital Signs Temp Pulse Resp BP Pulse Ox 02/22/19 15:23 36.8 C 86 15 150/78 H 95 02/22/19 07:50 36.8 C 72 12 122/77 98
[2019-02-22] MEDS: ACETAMINOPHEN 65 ML IV PRN (18:52)
[2019-02-22] MEDS: ONDANSETRON INJ 2 MG/ML 2 ML VIAL IV PRN (23:56)
[2019-02-23] MEDS: MoRPHine SULFATE 4 MG/ML 1 ML CARP\\VIAL IV PRN ×3 (03:39→19:37)
[2019-02-23] MEDS: metroNIDAZOLE 500 MG/100 ML BAG IV SCH ×3 (05:53→21:04)
[2019-02-23] MEDS: CIPROFLOXACIN 400 MG/200 ML BAG IV SCH (05:53)
[2019-02-23] MEDS: SODIUM CHLORIDE 0.9% 1000ML 1,000 ML IV SCH ×2 (07:13→13:32)
[2019-02-23] MEDS: HEPARIN SOD 5,000 UNIT/0.5 ML VIAL SQ SCH ×2 (08:47→21:02)
--- NOTE | 2019-02-23 09:03 | XRay Report ---
XR chest 1V portable CLINICAL HISTORY: Hypoxia COMPARISON STUDY: December 09, 2018 FINDINGS: There is a nasogastric tube which extends into the stomach. The heart is enlarged. The stud y is mildly rotated. There are small bilateral pleural effusions with left basilar atelectasis/consol idation there is no failure[ IMPRESSION: 1. Cardiomegaly 2. Small bilateral pleural effusions with associated left basilar atelectasis/consolidation 3. No current evidence for failure Electronically signed by: Praneeth Alexandre M.D. 02/23/2019 9:02 AM
[2019-02-23 09:06] LABS: Prothrombin Time 10.5 Seconds (9.0-12.0)
[2019-02-23 09:15] LABS: Albumin Level 2.8 gm/dl (3.4-5.0); BUN Creatinine Ratio 20.3 (10-20); Calcium 8.5 mg/dl (8.5-10.1); Creatinine Clr Calc Pharmacy 16.7 ml/min; Est GFR (African American) 38.8; Est GFR (Non-African American) 33.5; Magnesium 2.4 mg/dl (1.8-2.4); Potassium 4.2 mmol/L (3.5-5.1)
[2019-02-23 09:18] LABS: Bilirubin,Total 0.4 mg/dl (0.2-1); Globulin 2.9 gm/dl (2.5-4.0); Total Protein 5.7 gm/dl (6.4-8.2)
--- NOTE | 2019-02-23 11:00 | Surgery Progress Note ---
Date of Service February 23, 2019 Assessment & Plan (1) Mass of colon: Patient has a colon mass creating obstruction Plan is for resection on Monday Continue NG tube Continue analgesics Present on Admission?: Yes Subjective Still having some mild pain that is controlled with analgesic regimen Irritation from the NG tube And she is putting out significant amounts Physical Exam Gastrointestinal (Abdomen): Inspection/Auscultation: normal bowel sounds Percussion/Palpation: abdomen soft; abdomen nontender Results & Data Vital Signs (Past 12 Hours) Vital Signs Temp Pulse Pulse Resp BP BP Pulse Ox 02/23/19 08:00 36.3 C L 60 17 122/62 84 L 02/23/19 00:00 36.5 C 88 17 141/65 H 94
--- NOTE | 2019-02-23 11:17 | Surgery Progress Note ---
Date of Service February 23, 2019 Assessment & Plan (1) Small bowel obstruction: Postoperative day #9 Tolerating regular diet Can discontinue TPN Continue ambulation Follow H&H Treatment of edema of lower extremities as per 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 Present on Admission?: Yes Subjective Postoperative day #9 Having very soft but not liquid bowel movements There is been no bright red blood with her bowel movements H&H noted after transfusion Tolerating regular diet without nausea or vomiting Ambulating Physical Exam Gastrointestinal (Abdomen): Inspection/Auscultation: normal bowel sounds; abdomen not distended Percussion/Palpation: + abdomen tender (Minimal tenderness that is incisional only) and abdomen soft Results & Data Vital Signs (Past 12 Hours) Vital Signs Temp Pulse Pulse Resp BP BP Pulse Ox 02/23/19 08:00 36.3 C L 60 17 122/62 84 L 02/23/19 00:00 36.5 C 88 17 141/65 H 94 Laboratory Results 02/23/19 02/23/19 Range/Units 08:30 08:30 PT 10.5 (9.0-12.0) Seconds INR 1.0 (0.9-1.1) Sodium 141 (136-145) mmol/L Potassium 4.2 (3.5-5.1) mmol/L Chloride 111 H (98-107) mmol/L Carbon Dioxide 18 L (21-32) mmol/L Anion Gap 12.0 H (3-11) BUN 28 H (7-18) mg/dl Creatinine 1.39 H (0.6-1.2) mg/dl Est Cr Clr Drug Dosing 16.7 ml/min Est GFR ( Amer) 38.8 Est GFR (Non-Af Amer) 33.5 BUN/Creatinine Ratio 20.3 H (10-20) Glucose 68 L (70-99) mg/dl Calcium 8.5 (8.5-10.1) mg/dl Magnesium 2.4 (1.8-2.4) mg/dl Total Bilirubin 0.4 (0.2-1) mg/dl AST 16 (15-37) U/L ALT 12 (12-78) U/L Alkaline Phosphatase 39 L (45-117) U/L Total Protein 5.7 L (6.4-8.2) gm/dl Albumin 2.8 L (3.4-5.0) gm/dl Globulin 2.9 (2.5-4.0) gm/dl Albumin/Globulin Ratio 1.0 (0.9-2)
[2019-02-23] MEDS: ACETAMINOPHEN 65 ML IV PRN (12:43)
--- NOTE | 2019-02-23 15:36 | Hospitalist Progress Note ---
Date of Service February 23, 2019 Assessment & Plan (1) Lesion of left lung: CT of chest that shows a left lower lobe lobulated lesion 11 mm in size concerning for malignancy. Question of primary lesion versus metastasis. No shortness of breath or coughing at this time (2) Mass of colon: Likely scheduled for bowel resection next week continue NG tube drainage hydration consideration of TPN, PICC line will be placed for 20 (3) Small bowel obstruction: Acute small bowel obstruction/cecal and ascending colon mass-- NG tube to low intermittent suction. Output remains significant Cipro 100 mg IV every 12 hours. Flagyl 500 mg IV every 8 hours. Zofran 4 mg IV every 6 hours as needed. Famotidine 20 mg IV every 12 hours. Consult general surgery planning a possible resection of the anastomosis to avoid bowel obstruction this will be more of a palliative and a curative approach. (4) Chronic pain: Morphine 15 mg p.o. twice daily as outpatient. Placed on morphine 4 mg IV every 4 hours as needed. (5) Hypothyroid: (6) Mobitz (type) II atrioventricular block: Cardiology has seen the patient tachycardic and was performed a global reduction of EF but no significant valvular abnormalities patient appears to be in sinus rhythm at this time (7) Anxiety: Given lorazepam 0.25 mg IV x1 to help with anxiety and deal with discomfort of NG tube. (8) CKD (chronic kidney disease) stage 4, GFR 15-29 ml/min: Has been stable continue hydration NSS noted above. Subjective Patient has no new complaints or problems she still has significant NG drainage was prohibits removal of the NG tube. She is agreeable to have a PICC line placed we may institute TPN prior to surgery but this is also as expected she may have a postoperative ileus. She has abdominal pain which is controlled Review of Systems Review of Systems: ROS: Patient is a very thin frail and tearful No double vision blurry vision No problems with speech or swallowing No palpitations, chest pain or pressure No Wheezing or breathing issues Persistent abdominal pain nausea and constipation No burning urine urine frequency or changes in color No focal joint pain or muscle pain No skin rashes or oral lesions No unusual bruising or bleeding No focused back pain or numbness or loss of strength Memory issues been forgetful more than I can recall my previous visits with her Physical Exam Physical Exam: The patient appeared thin frail and tearful Vital signs as documented. Head exam is unremarkable. normocephalic, atraumatic Neck is without jugular venous distension, thyromegaly, or lymphademopathy Lungs are clear to auscultation and percussion. Cardiac exam reveals Rhythm is regular. Mild systolic ejection murmur first and second heart sounds normal. Abdominal exam reveals hypoactive bowel sounds, diffusely tender to palpation Extremities are nonedematous and both pedal pulses are present Neurologic exam is A&Ox3, no focal deficits, strength is equal bilateral Psychologically seems anxious and depressed Skin is warm Dry without bruises or lesions Results & Data Vital Signs (Past 12 Hours) Vital Signs Temp Pulse Resp BP Pulse Ox 02/23/19 11:54 36.6 C 88 14 128/70 83 L 02/23/19 08:00 36.3 C L 60 17 122/62 84 L
[2019-02-24] MEDS: MoRPHine SULFATE 4 MG/ML 1 ML CARP\\VIAL IV PRN ×4 (01:57→23:54)
[2019-02-24] MEDS: SODIUM CHLORIDE 0.9% 1000ML 1,000 ML IV SCH ×2 (01:58→14:28)
[2019-02-24] MEDS: CIPROFLOXACIN 400 MG/200 ML BAG IV SCH (06:17)
[2019-02-24] MEDS: metroNIDAZOLE 500 MG/100 ML BAG IV SCH ×3 (06:17→21:11)
[2019-02-24 08:04] LABS: INR 1.1 (0.9-1.1); Prothrombin Time 10.8 Seconds (9.0-12.0)
[2019-02-24 08:11] LABS: Albumin Level 2.5 gm/dl (3.4-5.0); BUN Creatinine Ratio 20.7 (10-20); Bilirubin,Total 0.4 mg/dl (0.2-1); Calcium 7.7 mg/dl (8.5-10.1); Creatinine Clr Calc Pharmacy 15.7 ml/min; Est GFR (Non-African American) 31.1; Globulin 2.6 gm/dl (2.5-4.0); Total Protein 5.1 gm/dl (6.4-8.2)
[2019-02-24 08:52] LABS: Potassium 4.4 mmol/L (3.5-5.1)
[2019-02-24 08:57] LABS: Magnesium 2.3 mg/dl (1.8-2.4)
[2019-02-24] MEDS: HEPARIN SOD 5,000 UNIT/0.5 ML VIAL SQ SCH ×2 (09:58→21:03)
[2019-02-24] MEDS: ONDANSETRON INJ 2 MG/ML 2 ML VIAL IV PRN ×2 (12:17→20:06)
--- NOTE | 2019-02-24 15:44 | Hospitalist Progress Note ---
Date of Service February 24, 2019 Assessment & Plan (1) Lesion of left lung: CT of chest that shows a left lower lobe lobulated lesion 11 mm in size concerning for malignancy. Question of primary lesion versus metastasis. No shortness of breath or coughing at this time Possible chest follow-up for now, because patient has Arthur will take care of Arthur and then looking to how to deal with this spot (2) Mass of colon: scheduled for bowel resection next week per surgeon continue NG tube drainage cont hydration was not able to give PICC yesterday , IV team will try today consideration of TPN, (3) Small bowel obstruction: see above Acute small bowel obstruction/cecal and ascending colon mass-- NG tube to low intermittent suction. Output is improving Cipro 100 mg IV every 12 hours. Flagyl 500 mg IV every 8 hours. Zofran 4 mg IV every 6 hours as needed. Famotidine 20 mg IV every 12 hours. (4) Chronic pain: Morphine 15 mg p.o. twice daily as outpatient. Placed on morphine 4 mg IV every 4 hours as needed. (5) Hypothyroid: (6) Mobitz (type) II atrioventricular block: Cardiology has seen the patient tachycardic and was performed a global reduction of EF but no significant valvular abnormalities patient appears to be in sinus rhythm at this time (7) Anxiety: Given lorazepam 0.25 mg IV x1 to help with anxiety and deal with discomfort of NG tube. (8) CKD (chronic kidney disease) stage 4, GFR 15-29 ml/min: Has been stable continue hydration NSS noted above. Subjective Sitting in chair, on NG tube suctioning, the amount of fluid from NG suctioning has been decreasing, but over last 24 hr, is still around 400 ml, patient has some uncomfortable because of nasogastric tube in place, otherwise conversational, reports generalized weakness, denies abdominal pain, fever and chill Review of Systems Review of Systems: All systems reviewed & are unremarkable except as noted in HPI & below Physical Exam Physical Exam: General Appearance: frail, WD/WN, no apparent distress, NGT in place Eyes: normal inspection, PERRL, EOMI, sclerae normal ENT: normal ENT inspection, hearing grossly normal, pharynx normal Neck: supple, no adenopathy, thyroid normal, no JVD, no carotid bruits, trachea midline Respiratory/Chest: chest non-tender, normal breath sounds, no respiratory distress, no accessory muscle use, breath sounds decreased, rales, wheezing Cardiovascular: regular rate, rhythm, no JVD, no murmur Abdomen: decreased l bowel sounds, non tender, soft, no organomegaly, Extremities: normal range of motion, non-tender, normal inspection, 1+ pedal edema, no calf tenderness, normal capillary refill, pelvis stable, joint has no limited range of motion, capillary refill is normal, no cyanosis clubbing Neurologic/Psychiatric: tester rocket engine II-XII nml as tested, no motor/sensory deficits, alert, normal mood/affect, oriented x 3 Skin: normal color, warm/dry, no rash Lymphatic: no adenopathy Results & Data Vital Signs (Past 12 Hours) Vital Signs Temp Pulse Pulse Resp BP BP Pulse Ox 02/24/19 15:29 36.7 C 87 18 152/75 H 92 02/24/19 07:00 37.3 C 97 H 18 137/58 L 90 Laboratory Results - last 24 hr 02/24/19 02/24/19 02/24/19 07:18 07:18 08:25 PT 10.8 INR 1.1 Sodium 142 Potassium Chloride 116 H Carbon Dioxide 14 L Anion Gap 12.0 H BUN 31 H Creatinine 1.48 H Est Cr Clr Drug Dosing 15.7 Est GFR ( Amer) 36.0 Est GFR (Non-Af Amer) 31.1 BUN/Creatinine Ratio 20.7 H Glucose 98 Calcium 7.7 L Magnesium Total Bilirubin 0.4 AST ALT 12 Alkaline Phosphatase 35 L Total Protein 5.1 L Albumin 2.5 L Globulin 2.6 Albumin/Globulin Ratio 1.0 Blood Type A Positive Antibody Screen NEGATIVE 02/24/19 08:25 PT INR Sodium Potassium 4.4 Chloride Carbon Dioxide Anion Gap BUN Creatinine Est Cr Clr Drug Dosing Est GFR ( Amer) Est GFR (Non-Af Amer) BUN/Creatinine Ratio Glucose Calcium Magnesium 2.3 Total Bilirubin AST 18 ALT Alkaline Phosphatase Total Protein Albumin Globulin Albumin/Globulin Ratio Blood Type Antibody Screen
--- NOTE | 2019-02-24 19:54 | Surgery Progress Note ---
Date of Service February 24, 2019 Assessment & Plan (1) Mass of colon: Patient is stable Has mass of the right colon with plan for resection tomorrow I answered questions for her Continue NG tube Subjective Still has some discomfort from the NG tube Denies nausea and vomiting Very little abdominal pain Physical Exam Gastrointestinal (Abdomen): Percussion/Palpation: + abdomen tender (Mild) and abdomen soft Results & Data Vital Signs (Past 12 Hours) Vital Signs Temp Pulse Resp BP Pulse Ox 02/24/19 15:29 36.7 C 87 18 152/75 H 92
[2019-02-24] MEDS: ACETAMINOPHEN 65 ML IV PRN (20:11)
[2019-02-25] MEDS: SODIUM CHLORIDE 0.9% 1000ML 1,000 ML IV SCH (03:18)
[2019-02-25] MEDS: ONDANSETRON INJ 2 MG/ML 2 ML VIAL IV PRN (03:18)
[2019-02-25] MEDS: CIPROFLOXACIN 400 MG/200 ML BAG IV SCH (05:34)
[2019-02-25] MEDS: metroNIDAZOLE 500 MG/100 ML BAG IV SCH ×3 (05:35→21:41)
--- NOTE | 2019-02-25 06:42 | History & Physical Bridge Note ---
Date of Service February 25, 2019 History & Physical Bridge Note I have examined the patient, reviewed the History & Physical and in the interval since the performance of the History & Physical I have noted the following changes of clinical significance: no changes noted
[2019-02-25 07:45] LABS: Albumin Level 2.7 gm/dl (3.4-5.0); BUN Creatinine Ratio 20.1 (10-20); Calcium 8.3 mg/dl (8.5-10.1); Creatinine Clr Calc Pharmacy 14.1 ml/min; Est GFR (African American) 31.6; Est GFR (Non-African American) 27.2; Magnesium 2.3 mg/dl (1.8-2.4); Potassium 4.2 mmol/L (3.5-5.1)
[2019-02-25 07:48] LABS: Albumin Globulin Ratio 0.9 (0.9-2); Bilirubin,Total 0.3 mg/dl (0.2-1); Globulin 2.9 gm/dl (2.5-4.0); Total Protein 5.6 gm/dl (6.4-8.2)
[2019-02-25] MEDS ORDERED: PROPOFOL IV EMULSION 10 MG/ML 20 ML VIAL IV ONE (08:10)
[2019-02-25] MEDS ORDERED: NEOSTIGMINE METHYLSULFATE 5 MG/5 ML SYR ONE (08:10)
[2019-02-25] MEDS ORDERED: ONDANSETRON INJ 2 MG/ML 2 ML VIAL ONE (08:10)
[2019-02-25] MEDS ORDERED: fentaNYL citrate 100 MCG/2 ML VIAL ONE (08:10)
[2019-02-25] MEDS ORDERED: DEXAMETHASONE SOD INJ 4 MG/ML VIAL ONE (08:10)
[2019-02-25] MEDS ORDERED: GLYCOPYRROLATE 0.2 MG/ML VIAL ONE (08:10)
[2019-02-25] MEDS ORDERED: LIDOCAINE HCL 2% 2 ML VIAL/AMP(20MG/ML) INFIL ONE (08:10)
[2019-02-25] MEDS ORDERED: ATROPINE SULFATE 0.1 MG/ML 10ML SYR IV PRN (08:11)
[2019-02-25] MEDS ORDERED: HYDROmorphone INJ 1 MG/ML SYRINGE IV PRN (08:11)
[2019-02-25] MEDS ORDERED: ePHEDrine sulfate 50 MG/ML AMP IV PRN (08:11)
[2019-02-25] MEDS ORDERED: MIDAZOLAM HCL 1 MG/ML 2ML VIAL ONE (08:23)
[2019-02-25] MEDS ORDERED: POTASSIUM CHLORIDE 10 MEQ in SODIUM CHLORIDE 0.45 % 1,000 ML IV SCH (08:30)
[2019-02-25] MEDS ORDERED: ROCURONIUM BROMIDE 10 MG/ML 5 ML VIAL ONE (09:25)
[2019-02-25] MEDS ORDERED: SUCCINYLCHOLINE CHLORIDE 20 MG/ML 10 ML VIAL ONE (09:40)
[2019-02-25] MEDS ORDERED: ACETAMINOPHEN 1,000 MG/100 ML VIAL IV ONE (10:01)
--- NOTE | 2019-02-25 10:01 | Operative Report ---
Post Operative Report Pre & Post Diagnosis Operation Date: 02/25/19 08:25 Pre-Op Diagnosis: Colon Mass, Umbilical Hernia Post-Op Diagnosis: Ileocecal Mass, Umbilical Hernia Procedure Operation Date: 02/25/19 08:25 Actual Procedures p Ileocolic Resection and Umbilical Hernia Repair - Jordan Urbina MD, FACS same with ileocolic anastomosis Surgeon Jordan Urbina MD, FACS Turbine Mechanic [employer] Driver Estimated Blood Loss 20 Findings Consistent with Post-Op Diagnosis Specimens partial colectomy with ileum Description of Procedure see dictation I attest to the content of the Intraoperative Record and any orders documented therein. Any exceptions are noted below.
[2019-02-25] MEDS ORDERED: NSS + 20MEQ KCL 20 MEQ/1,000 ML BAG IV SCH (11:40)
[2019-02-25] MEDS: HEPARIN SOD 5,000 UNIT/0.5 ML VIAL SQ SCH (11:44)
[2019-02-25] MEDS ORDERED: HYDROmorphone INJ 0.5 MG/0.5 ML SYR ONE (11:44)
[2019-02-25] MEDS ORDERED: metroNIDAZOLE 500 MG/100 ML BAG IV SCH (12:00)
--- NOTE | 2019-02-25 12:11 | Operative Report ---
DATE OF OPERATION: 02/25/2019 NAME OF OPERATION: Ileocolic resection with ileocolic anastomosis and umbilical hernia repair. PREOPERATIVE DIAGNOSES: Umbilical hernia and cecal tumor. POSTOPERATIVE DIAGNOSES: Umbilical hernia and cecal tumor. STAFF SURGEON: Jordan Urbina MD SKIN PEELING MACHINE OPERATOR: Brayan Driver PA-C ANESTHESIA: General. DESCRIPTION OF PROCEDURE: The patient was brought in the operating room and placed on the operating table in supine position. She had an NG tube in place. She had Alexander catheter, placed after appropriate anesthetic. Her abdomen was prepped and draped in usual fashion. She had known umbilical hernia which was spontaneously reduced during anesthesia. Transverse incision was made lateral to the umbilicus, carrying dissection down identifying the hernia sac, opening the hernia sac, then mobilizing the fascia at that level. The hernia was approximately 2 cm in diameter. Dissection was carried down through the fascia laterally, and then on exploration, the patient did have a relatively large cecal tumor which was mobile. She did have some mild pericolic lymphadenopathy, but the base of the right colic artery appeared to be relatively spared from lymphadenopathy. The colon was mobilized laterally and then the duodenum identified and maintained away from the area of dissection. The ileum was mobilized. The colon was transected at the mid ascending colon using a NELDA 80 stapler and then the ileum was transected using a NELDA 80 stapler. The mesentery transected and ligated using 2-0 silk suture and 0 chromic suture as well as the LigaSure. Specimen was sent for routine pathology. She did not appear to have extra-colonic spread of tumor in the abdomen. At this point, this ends of the ileum and colon were oversewn using 3-0 silk suture and then a [id number]-[id number] anastomosis performed using the NELDA stapler. The enteric defect remaining was closed in 2 layers, a mucosal layer of 2-0 chromic and a seromuscular layer of 3-0 silk suture. The mesenteric defect closed using 2-0 chromic suture. The area irrigated. All sites were viable. There was no ischemia. We used the antibiotic solution to irrigate the abdomen and then the posterior peritoneum and fascia closed using running #1 chromic suture. The area of the hernia was closed using both running and interrupted #1 PDS suture with the anterior fascia closed using #1 PDS suture. Quarter inch [place] drain placed in the subcutaneous space, secured to the skin using 4-0 nylon suture. Skin reapproximated very loosely using musa. Dressing applied. The patient transferred to recovery room in stable condition. I attest to the content of the Intraoperative Record and any orders documented therein. Any exception s are noted below.
--- NOTE | 2019-02-25 12:12 | Operative Report ---
DATE OF OPERATION: 02/25/2019 ADDENDUM My administrative services assistant, Olayinka Driver helped with prepping, draping, resection of the colon, repair of the hernia and closure of the wound. I attest to the content of the Intraoperative Record and any orders documented therein. Any exception s are noted below.
--- NOTE | 2019-02-25 12:28 | Hospitalist Progress Note ---
Date of Service February 25, 2019 Assessment & Plan (1) Lesion of left lung: CT of chest shows a left lower lobe lobulated lesion 11 mm in size concerning for malignancy. Question of primary lesion versus metastasis. No shortness of breath or coughing at this time follow-up for now, because patient has Colon mass, will take care of colon mass and then look into to how to deal with this spot (2) Mass of colon: had Ileocolic resection with ileocolic anastomosis and umbilical hernia repair today, POD 0 cont hydration had PICC yesterday , will start TPN Surgical input appreciated, (3) Small bowel obstruction: see above (4) Chronic pain: Morphine 15 mg p.o. twice daily as outpatient. Placed on morphine 4 mg IV every 4 hours as needed. (5) Hypothyroid: (6) Mobitz (type) II atrioventricular block: f/u (7) Anxiety: post op now, will f/u (8) CKD (chronic kidney disease) stage 4, GFR 15-29 ml/min: Creatinine today is getting worse, it is 1.65 from 1.48, will continue watch, (9) Hypernatremia: Likely from IV fluid, has change IV fluid to half NSS with potassium, will continue follow-up Discussed with 2 daughters at bedside, answered all questions, discussed about CODE STATUS, patient is okay CPR however no cardioversion no intubation, Subjective Had procedure done this morning, now treated in the ICU, is in sleep, occasional griming face possible from pain, afebrile, not able to get review of system, Physical Exam Physical Exam: General Appearance: frail, WD/WN, no apparent distress, in sleep Eyes: normal inspection, PERRL, EOMI, sclerae normal ENT: normal ENT inspection, Neck: supple, no adenopathy, thyroid normal, no JVD, Respiratory/Chest: Decreased breath sounds, on nasal cannula oxygen 3 L/min, no respiratory distress, no accessory muscle use, no rales, wheezing Cardiovascular: regular rate, rhythm, no JVD, no murmur Abdomen: neg bowel sounds, , soft, no organomegaly, Extremities: normal range of motion, non-tender, normal inspection, 1+ pedal edema normal capillary refill, pelvis stable, joint has no limited range of motion, capillary refill is normal, no cyanosis clubbing Neurologic/Psychiatric: no facial droop Skin: normal color, warm/dry, no rash Lymphatic: no adenopathy Results & Data Vital Signs (Past 12 Hours) Vital Signs Temp Pulse Pulse Resp BP BP Pulse Ox 02/25/19 11:12 36.4 C L 88 14 164/99 H 99 02/25/19 11:00 78 16 168/94 H 99 02/25/19 10:50 77 16 165/85 H 97 02/25/19 10:40 77 13 162/79 H 97 02/25/19 10:30 74 18 161/84 H 98 02/25/19 10:24 36.5 C 75 20 164/92 H 100 02/25/19 07:51 36.5 C 60 18 175/85 H 92 Laboratory Results - last 24 hr 02/25/19 02/25/19 06:30 11:47 Sodium 146 H Potassium 4.2 Chloride 115 H Carbon Dioxide 17 L Anion Gap 13.0 H BUN 33 H Creatinine 1.65 H Est Cr Clr Drug Dosing 14.1 Est GFR ( Amer) 31.6 Est GFR (Non-Af Amer) 27.2 BUN/Creatinine Ratio 20.1 H Glucose 111 H POC Glucose 83 Calcium 8.3 L Magnesium 2.3 Total Bilirubin 0.3 AST 19 ALT 15 Alkaline Phosphatase 40 L Total Protein 5.6 L Albumin 2.7 L Globulin 2.9 Albumin/Globulin Ratio 0.9 Laboratory Results see above
[2019-02-25] MEDS ORDERED: ACETAMINOPHEN 1000 MG/100 ML IV IV ONE (12:48)
--- NOTE | 2019-02-25 13:23 | Anesthesiology Progress Note ---
Date of Service February 25, 2019 Anesthesia Post Procedure Vital Signs Vital Signs: Temp Pulse Pulse Pulse Pulse Resp BP 02/25/19 13:00 92 H 14 162/108 H 02/25/19 12:45 94 H 12 177/99 H 02/25/19 12:31 90 13 174/94 H 02/25/19 12:15 87 14 160/105 H 02/25/19 12:01 84 14 157/115 H 02/25/19 11:45 36.9 C 86 16 178/85 H 02/25/19 11:36 93 H 15 178/90 H 02/25/19 11:12 36.4 C L 88 14 02/25/19 11:00 78 16 02/25/19 10:50 77 16 02/25/19 10:40 77 13 02/25/19 10:30 74 18 02/25/19 10:24 36.5 C 75 20 02/25/19 07:51 36.5 C 60 18 02/25/19 00:01 02/24/19 23:40 36.6 C 89 18 02/24/19 15:29 36.7 C 87 18 BP BP Pulse Ox 02/25/19 13:00 97 02/25/19 12:45 98 02/25/19 12:31 98 02/25/19 12:15 98 02/25/19 12:01 98 02/25/19 11:45 98 02/25/19 11:36 97 02/25/19 11:12 164/99 H 99 02/25/19 11:00 168/94 H 99 02/25/19 10:50 165/85 H 97 02/25/19 10:40 162/79 H 97 02/25/19 10:30 161/84 H 98 02/25/19 10:24 164/92 H 100 02/25/19 07:51 175/85 H 92 02/25/19 00:01 146/71 H 02/24/19 23:40 185/82 H 93 02/24/19 15:29 152/75 H 92 Pain Intensity Abdomen: Pain Intensity: 3 Right Knee: Pain Intensity: 6 Generalized: Pain Intensity: 9 Notes Mental Status: alert / awake / arousable Patient Amnestic to Procedure: Yes Nausea / Vomiting: adequately controlled Pain: adequately controlled Airway Patency, RR, SpO2: stable & adequate BP & HR: stable & adequate Hydration State: stable & adequate Anesthetic Complications: no major complications apparent and Pt Satisfied with anesthetic care
[2019-02-25] MEDS: HYDROmorphone INJ 0.5 MG/0.5 ML SYR IV PRN ×2 (16:12→19:09)
--- NOTE | 2019-02-25 16:13 | Critical Care Consultation ---
Date of Consultation February 25, 2019 Assessment & Plan (1) Mass of colon: Impression: 1. Colon mass status post ileocecal resection with anastomosis. 2. History of Mobitz 2 AV block. 3. Hypothyroidism. 4. History of hypertension. 5. Patient is DNI. Plan: 1. Pain control postop. 2. DVT and GI prophylaxis. 3. Change IV fluid to half-normal saline. 4. The patient is developing hyperchloremic metabolic acidosis with washout of her bicarb. 5. Continue monitoring in ICU. 6. The patient does not show any evidence of progression of her AV block. 7. Discussed with the staff on rounds and details. 8. Daily labs. Critical care time spent with the patient was 35 minutes. History of Present Illness Reason for Consultation: Postop management. Requesting Physician: Dr. Urbina Attending Physician: Maurice Carvalho MD, PhD, [facility] History of Present Illness Dear Dr. Urbina: Thank you for the kind referral of Mrs. Marcus to critical care service. This is a 89-year-old female with history of bowel obstruction, ileocecal mass, status post ileocecal resection with anastomosis, underwent the procedure under general anesthesia without any difficulty, has uneventful postop course, admitted to the ICU for further management. The patient does have a history of AV block Mobitz 2, chronic kidney disease, hypothyroidism, hypertension and history of asthma. The patient is a halfway patient, and her wishes not to be intubated. When I interviewed the patient, she was already extubated postop, she appeared to be lethargic but comfortable, has been having pain mainly in the abdomen, expectedly, no chest pain, no nausea or vomiting. The patient up in her eyes a nd follow commands. She is hard of hearing. Review of system was limited as the patient was just waking up from the surgery. Allergies Allergy/AdvReac Type Severity Reaction Status Date / Time codeine Allergy Unknown CAN'T Verified 02/21/19 02:40 REMEMBER erythromycin base Allergy Unknown CAN'T Verified 02/21/19 02:40 REMEMBER Penicillins Allergy Unknown CAN'T Verified 02/21/19 02:40 REMEMBER Sulfa (Sulfonamide Allergy Unknown CAN'T Verified 02/21/19 02:40 Antibiotics) REMEMBER cefuroxime [From Ceftin] AdvReac Intermediate Diarrhea Verified 02/21/19 02:40 banana AdvReac Mild GI symptoms Verified 02/21/19 02:40 melon AdvReac Verified 02/23/19 13:47 Cantaloupe AdvReac Mild GI Uncoded 02/21/19 02:40 SYMPTOMS FROM UNSPECIFIED MELONS Home Medications Home Medications Medication Instructions Recorded Confirmed Type aspirin 81 mg PO DAILY 11/29/18 02/21/19 History cholecalciferol (vitamin D3) 1,000 unit PO QPM 11/29/18 02/21/19 History [Vitamin D3] levothyroxine 50 mcg PO DAILY 11/29/18 02/21/19 History morphine 15 mg PO BID 11/29/18 02/21/19 History prednisone 5 mg PO DAILY 11/29/18 02/21/19 History promethazine 25 mg PO Q6H PRN 11/29/18 02/21/19 History Patient History Medical History Lesion of left lung (Acute) Mass of colon (Acute) Small bowel obstruction (Acute) Sacral ulcer (Chronic) 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) CAD (coronary artery disease) (Chronic) Mobitz (type) II atrioventricular block (Chronic) Hypertension (Resolved) Asthma (Chronic) Acute kidney injury superimposed on chronic kidney disease (Resolved) Chronic kidney disease (Chronic) Back fracture Elevated troponin Epigastric abdominal pain Ischemic colitis Nausea and vomiting Sepsis due to cellulitis Surgical History H/O: hysterectomy S/P appendectomy S/P cholecystectomy Family History Other No significant family history Social History Preferred Language: Uzbek Communication Ability: Effective Scientific Process Operator Required: No Beliefs That Will Affect Care: None marital status: / Current Living Situation: Family Other Information That Helps Us Care for You: No Feels Safe at Home: Yes Safety Concerns: Feels Safe At This Time Smoking Status: Never smoker Hx Alcohol Use: No Hx Substance Use: No Review of Systems Review of Systems: Limited review of system, apart from the above, unremarkable review of system was noted. Physical Exam Physical Exam: Her vital signs are stable except for blood pressure slightly elevated at 170/100. O2 sat 97%. Respiratory rate is 23. She is in normal sinus rhythm, no JVD, S1-S2, systolic ejection murmur, distant breath sounds bilaterally, diminished breath sounds, postop surgical wrap of the abdomen, no edema, venous stasis in the periphery noted. Neurologically she is lethargic but difficult to assess at this point. No rash and no oral lesion. Results & Data Vital Signs (Past 12 Hours) Vital Signs Temp Pulse Pulse Pulse Resp BP BP 02/25/19 15:01 94 H 14 176/102 H 02/25/19 14:00 90 20 195/88 H 02/25/19 13:02 91 H 12 179/95 H 02/25/19 13:00 92 H 14 162/108 H 02/25/19 12:45 94 H 12 177/99 H 02/25/19 12:31 90 13 174/94 H 02/25/19 12:15 87 14 160/105 H 02/25/19 12:01 84 14 157/115 H 02/25/19 11:45 36.9 C 86 16 178/85 H 02/25/19 11:36 93 H 15 178/90 H 02/25/19 11:12 36.4 C L 88 14 164/99 H 02/25/19 11:00 78 16 168/94 H 02/25/19 10:50 77 16 165/85 H 02/25/19 10:40 77 13 162/79 H 02/25/19 10:30 74 18 161/84 H 02/25/19 10:24 36.5 C 75 20 164/92 H 02/25/19 07:51 36.5 C 60 18 BP Pulse Ox 02/25/19 15:01 98 02/25/19 14:00 96 02/25/19 13:02 97 02/25/19 13:00 97 02/25/19 12:45 98 02/25/19 12:31 98 02/25/19 12:15 98 02/25/19 12:01 98 02/25/19 11:45 98 02/25/19 11:36 97 02/25/19 11:12 99 02/25/19 11:00 99 02/25/19 10:50 97 02/25/19 10:40 97 02/25/19 10:30 98 02/25/19 10:24 100 02/25/19 07:51 175/85 H 92 Laboratory Results Labs were reviewed personally which showed slight hyponatremia, bicarb of 17, BUN and creatinine 33 and 1.65. Albumin is 2.7. Diagnostic Findings Imaging of the chest was reviewed from 2 days ago which showed small bilateral effusion with cardiomegaly, clear lung hua.
[2019-02-25] MEDS: SODIUM CHLOR 0.45% + 20MEQ KCL 20 MEQ/1,000 ML BAG IV SCH (17:50)
[2019-02-26] MEDS: HYDROmorphone INJ 0.5 MG/0.5 ML SYR IV PRN ×5 (00:10→22:03)
[2019-02-26] MEDS ORDERED: TPN/PPN CONSULT PHARMACY SCH (04:00)
[2019-02-26 04:45] LABS: Hematocrit (blood only) 30.9 % (37-47); Hemoglobin 9.3 g/dL (12.0-16.0); Mean Corpuscular Hgb Conc 30.1 g/dL (32-36); Platelet Count 183 K/uL (130-400); RDW Coefficient of Variation 16.7 % (11.5-14.5); RDW Standard Deviation 60.7 fL (36.4-46.3); Red Blood Count 3.09 M/uL (4.2-5.4); White Blood Count 10.27 K/uL (4.8-10.8)
[2019-02-26] MEDS: SODIUM CHLOR 0.45% + 20MEQ KCL 20 MEQ/1,000 ML BAG IV SCH (04:45)
[2019-02-26 05:04] LABS: Basophils # (auto) 0.01 K/uL (0-0.2); Basophils % (auto) 0.1 %; Echinocytes 1+; Immature Granulocytes # (auto) 0.07 K/uL (0.00-0.02); Immature Granulocytes % (auto) 0.7 %; Lymphocytes # (auto) 0.57 K/uL (1.2-3.4); Lymphocytes % (auto) 5.6 %; Monocytes # (auto) 0.69 K/uL (0.11-0.59); Monocytes % (auto) 6.7 %; Neutrophils # (auto) 8.93 K/uL (1.4-6.5); Neutrophils % (auto) 86.9 %
--- NOTE | 2019-02-26 05:40 | Progress Note ---
Date of Service February 26, 2019 Assessment & Plan (1) Mass of colon: overall stable- NG removed, ice only cont IV atbx for now, check labs PT ordered- to floor later if ok with ICU/ med team Subjective awake, alert, vitals stable Physical Exam Physical Exam: min NG output- NG too far out- removed abd soft, has zakiya drain in subcu Results & Data Vital Signs (Past 12 Hours) Vital Signs Temp Pulse Resp BP Pulse Ox 02/26/19 05:00 93 H 17 116/89 97 02/26/19 04:00 36.7 C 93 H 23 162/84 H 98 02/26/19 03:00 90 18 152/86 H 98 02/26/19 02:00 90 19 156/53 H 98 02/26/19 01:00 95 H 12 142/74 H 97 02/26/19 00:00 36.7 C 95 H 21 163/88 H 93 02/25/19 23:00 91 H 16 151/72 H 98 02/25/19 22:00 95 H 12 134/80 97 02/25/19 21:00 96 H 15 139/71 99 02/25/19 20:00 36.4 C L 93 H 19 135/49 L 98 02/25/19 19:00 99 H 17 181/92 H 99 02/25/19 18:01 94 H 16 142/71 H 98
[2019-02-26] MEDS: metroNIDAZOLE 500 MG/100 ML BAG IV SCH ×3 (05:54→21:49)
[2019-02-26] MEDS: CIPROFLOXACIN 400 MG/200 ML BAG IV SCH (05:55)
[2019-02-26 06:40] LABS: Albumin Level 2.5 gm/dl (3.4-5.0); BUN Creatinine Ratio 22.9 (10-20); Creatinine Clr Calc Pharmacy 16.4 ml/min; Est GFR (African American) 32.8; Est GFR (Non-African American) 28.3; Magnesium 2.2 mg/dl (1.8-2.4)
[2019-02-26 06:43] LABS: Albumin Globulin Ratio 0.8 (0.9-2); Bilirubin,Total 0.3 mg/dl (0.2-1); Globulin 3.2 gm/dl (2.5-4.0); Phosphorus 2.3 mg/dl (2.5-4.9); Total Protein 5.7 gm/dl (6.4-8.2)
[2019-02-26] MEDS ORDERED: SODIUM PHOSPHATE 3 MMOL/1 ML INFUSION IV STA (08:36)
[2019-02-26] MEDS ORDERED: SODIUM PHOSPHATE 15 MMOL in SODIUM CHLORIDE 0.9% 250 ML IV ONE (09:00)
[2019-02-26] MEDS: HEPARIN SOD 5,000 UNIT/0.5 ML VIAL SQ SCH ×2 (09:11→21:48)
[2019-02-26] MEDS: SODIUM CHLORIDE 0.45 % 1,000 ML IV SCH (09:11)
--- NOTE | 2019-02-26 12:40 | Pharmacy Report ---
Pharmacy PN Initial Consult - Date of Service February 26, 2019 - Scope Pharmacy has been consulted to manage parenteral nutrition orders and order appropriate labs. As part of the Nutrition Support Team guidelines, pharmacy will work in conjunction with dietary when determining the patients caloric needs. - Subjective The patient is a 89 year old F admitted on 02/21/19 03:38 for SBO, colonic mass. Patient is to receive parenteral nutrition for ongoing NPO status (day 6 of NPO today) in the setting of recent colon mass resection. Pertinent PMH: * CKD4 * ischemic colitis * CAD * HTN * hypothyroidism * sacral ulcer * Lesion of L lung * asthma - Objective Height: 4 ft 9 in Weight: 51.1 kg Diet: NPO Vascular Access:: PICC (central location confirmed) Intake & Output (Last 24Hrs): Intake & Output 02/24/19 02/25/19 02/26/19 02/27/19 06:59 06:59 06:59 06:59 Intake Total 1977.000 / 8875.893 1704.000 / 2481.000 3153.333 / 3253.333 653.333 / 653.333 Output Total 770 / 770 855 / 855 555 / 555 60 / 60 Balance 1207.000 / 4287.390 3631.000 / 5407.159 4351.333 / 2698.333 593.333 / 593.333 Weight 42.5 kg 51.1 kg Additional Fluid Losses/Gains:: IV ABX (ciprofloxacin + metronidazole) 1/2 NS @80cc/hr Laboratory Data (Last 24 Hrs):: 02/26/19 02/26/19 02/26/19 04:35 04:35 05:42 Sodium Cancelled Cancelled 144 Potassium Cancelled Cancelled 5.0 D Chloride Cancelled Cancelled 118 H Carbon Dioxide Cancelled Cancelled 17 L BUN Cancelled Cancelled 37 H Creatinine Cancelled Cancelled 1.60 H Glucose Cancelled Cancelled 108 H Calcium Cancelled Cancelled 8.0 L Phosphorus Cancelled Cancelled 2.3 L Magnesium Cancelled Cancelled 2.2 Total Bilirubin Cancelled Cancelled 0.3 AST Cancelled Cancelled 17 ALT Cancelled Cancelled 16 Alkaline Phosphatase Cancelled Cancelled 38 L Albumin Cancelled Cancelled 2.5 L Nutrition Assessment:: Please refer to the Notes section of the EMR for the most recent heat treating operator note. - Assessment Patient admitted with abd pain, found to have SBO. Resection of colon mass performed 02/25. She has been NPO x 6 days now and had c/o abd pain for several days prior to admission. Patient does have risk factors for potential fluid overload (age, small body habitus, h/o CAD, cardiomegaly on CXR), will administer TPN in minimum volume. Will discuss main IVF rate w/ provider to ensure rate is adjusted downwards if therapy to continue. Per provider's assessments, no rales, no JVD, 1+ edema, sat in the upper 90s on 2L NC. Vital signs stable. E-lytes reviewed. Phos repleted. K did rise while on NS + 20mEq KCl fluids - will add minimal K to today's bag. She does have underlying CKD and current eCrCl < 30cc/min - will need to monitor K, Mg and Phos closely. NG tube removed today. Surgical drain still in place. Today's bag of TPN will contain only 10-11kcal/kg, and we will slowly advance over the next 2-3 days to goal if tolerated well without e-lyte abnormalities of fluid status issues. - Plan For day 1 of PN administration, the following will be ordered: Macronutrients Amino acids 50 grams/day Dextrose 100 grams/day Lipids 0 grams/day Micronutrients Combined electrolytes 0 mL - contains 35 mEq Na, 20 meq K, 4.5 mEq Ca, 5 mEq Mg, 35 mEq Cl, 29.5 mEq acetate per 20 mL Sodium phosphate 0 MMol Sodium chloride 0 mEq Sodium acetate 30 mEq Potassium phosphate 9 mMol Potassium chloride 0 mEq Potassium acetate 0 mEq Magnesium sulfate 4.06 mEq Calcium gluconate 4.65 mEq Multivitamins 10 mL Trace Elements 1 mL Additional additives: Thiamine 100mg + Folic Acid 1mg Total volume 684 mL to be infused over 24 hrs will provide 540 kcal/day Labs to be ordered per PN order protocol Pharmacy will follow and adjust parenteral nutrition orders on a daily basis. Thank you.
--- NOTE | 2019-02-26 15:41 | Hospitalist Progress Note ---
Date of Service February 26, 2019 Assessment & Plan (1) Mass of colon: had Ileocolic resection with ileocolic anastomosis and umbilical hernia repair today, POD 1 cont hydration , TPN, watch electrolytes, Surgical input appreciated, We will follow-up pathology report and oncology consult per results Present on Admission?: Yes (2) Lesion of left lung: CT of chest shows a left lower lobe lobulated lesion 11 mm in size concerning for malignancy. Question of primary lesion versus metastasis. No shortness of breath or coughing at this time follow-up for now, because patient has Colon mass, will take care of colon mass and then look into to how to deal with this spot (3) Small bowel obstruction: see above (4) Chronic pain: Morphine 15 mg p.o. twice daily as outpatient. Placed on morphine 4 mg IV every 4 hours as needed. Pain well controlled, (5) Hypothyroid: We will start 1/2 home dose and follow up (6) Mobitz (type) II atrioventricular block: f/u (7) Anxiety: post op now, will f/u (8) CKD (chronic kidney disease) stage 4, GFR 15-29 ml/min: Creatinine1.6 from 1.65 from 1.48, will continue watch, possibly in baseline, (9) Hypernatremia: Likely from IV fluid, resolved after changing IV fluid to half NSS with potassium, Discussed with 2 daughters at bedside, answered all questions, discussed about CODE STATUS, patient is okay CPR however no cardioversion no intubation, Increase activity PTOT Subjective Mild abdominal pain when palpation, no nausea vomiting, not passing gas yet, reports generalized weakness, otherwise no fever and chill, not passing gas, denies distention of her abdomen, Review of Systems Review of Systems: All systems reviewed & are unremarkable except as noted in HPI & below Physical Exam Physical Exam: General Appearance: frail, weak, WD/WN, no apparent distress Eyes: normal inspection, PERRL, EOMI, sclerae normal ENT: normal ENT inspection, hearing grossly normal, pharynx normal Neck: supple, no adenopathy, thyroid normal, no JVD, no carotid bruits, trachea midline Respiratory/Chest: chest non-tender, decreased breath sounds, no respiratory distress, no accessory muscle use, no rales, wheezing Cardiovascular: regular rate, rhythm, no JVD, no murmur Abdomen: - bowel sounds, mild tender, soft, no organomegaly, Extremities: normal range of motion, non-tender, normal inspection, 1+ pedal edema, no calf tenderness, normal capillary refill, joint has no limited range of motion, capillary refill is normal, no cyanosis clubbing Neurologic/Psychiatric: 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 nml as tested, no motor/sensory deficits, alert, normal mood/affect, oriented x 3 Skin: normal color, warm/dry, no rash Lymphatic: no adenopathy Results & Data Vital Signs (Past 12 Hours) Vital Signs Temp Pulse Resp BP Pulse Ox 02/26/19 11:00 110 H 20 132/88 95 02/26/19 10:00 100 H 21 106/73 93 02/26/19 09:00 93 H 31 H 141/76 H 98 02/26/19 08:00 91 H 16 143/78 H 98 02/26/19 07:00 97 H 13 97 02/26/19 06:00 94 H 19 125/71 91 02/26/19 05:00 93 H 17 116/89 97 02/26/19 04:00 36.7 C 93 H 23 162/84 H 98 Laboratory Results - last 24 hr 02/26/19 02/26/19 02/26/19 04:35 04:35 04:35 WBC 10.27 RBC 3.09 L Hgb 9.3 L Hct 30.9 L MCV 100.0 MCH 30.1 MCHC 30.1 L RDW Std Deviation 60.7 H RDW Coeff of Rashida 16.7 H Plt Count 183 MPV 9.0 Immature Gran % (Auto) 0.7 Neut % (Auto) 86.9 Lymph % (Auto) 5.6 [place] % (Auto) 6.7 Eos % (Auto) 0.0 Baso % (Auto) 0.1 Immature Gran # (Auto) 0.07 H Neut # (Auto) 8.93 H Lymph # (Auto) 0.57 L [place] # (Auto) 0.69 H Eos # (Auto) 0.00 Baso # (Auto) 0.01 Echinocytes 1+ Sodium Cancelled Cancelled Potassium Cancelled Cancelled Chloride Cancelled Cancelled Carbon Dioxide Cancelled Cancelled Anion Gap Cancelled Cancelled BUN Cancelled Cancelled Creatinine Cancelled Cancelled Est Cr Clr Drug Dosing Cancelled Cancelled Est GFR ( Amer) Cancelled Cancelled Est GFR (Non-Af Amer) Cancelled Cancelled BUN/Creatinine Ratio Cancelled Cancelled Glucose Cancelled Cancelled Calcium Cancelled Cancelled Phosphorus Cancelled Cancelled Magnesium Cancelled Cancelled Total Bilirubin Cancelled Cancelled AST Cancelled Cancelled ALT Cancelled Cancelled Alkaline Phosphatase Cancelled Cancelled Total Protein Cancelled Cancelled Albumin Cancelled Cancelled Globulin Cancelled Cancelled Albumin/Globulin Ratio Cancelled Cancelled 02/26/19 05:42 WBC RBC Hgb Hct MCV MCH MCHC RDW Std Deviation RDW Coeff of Rashida Plt Count MPV Immature Gran % (Auto) Neut % (Auto) Lymph % (Auto) [place] % (Auto) Eos % (Auto) Baso % (Auto) Immature Gran # (Auto) Neut # (Auto) Lymph # (Auto) [place] # (Auto) Eos # (Auto) Baso # (Auto) Echinocytes Sodium 144 Potassium 5.0 D Chloride 118 H Carbon Dioxide 17 L Anion Gap 9.0 BUN 37 H Creatinine 1.60 H Est Cr Clr Drug Dosing 16.4 Est GFR ( Amer) 32.8 Est GFR (Non-Af Amer) 28.3 BUN/Creatinine Ratio 22.9 H Glucose 108 H Calcium 8.0 L Phosphorus 2.3 L Magnesium 2.2 Total Bilirubin 0.3 AST 17 ALT 16 Alkaline Phosphatase 38 L Total Protein 5.7 L Albumin 2.5 L Globulin 3.2 Albumin/Globulin Ratio 0.8 L
[2019-02-26] MEDS ORDERED: CUSTOM CENTRAL PN IV SCH (16:00)
[2019-02-26] MEDS ORDERED: DEXTROSE 10% 1,000 ML IV SCH (16:00)
[2019-02-26] MEDS: ONDANSETRON INJ 2 MG/ML 2 ML VIAL IV PRN (16:06)
--- NOTE | 2019-02-26 16:41 | Critical Care Progress Note ---
Date of Service February 26, 2019 Assessment & Plan (1) Mass of colon: Impression: 1. Colon mass status post ileocecal resection with anastomosis. 2. History of Mobitz 2 AV block. 3. Hypothyroidism. 4. History of hypertension. 5. Hyperchloremic metabolic acidosis. Plan: 1. Pain control postop. 2. DVT and GI prophylaxis. 3. Minimize sodium chloride due to hyperchloremic metabolic acidosis. 4. The patient is started on TPN, and we will keep total IV fluid at 70 mL an hour.. 5. Disposition plan to regular floor. 6. No progression of AV block. 7. Discussed with the staff on rounds and details. 8. Daily labs. Critical care time spent with the patient was 35 minutes. Subjective The patient feels better, minimal pain mainly in the epigastric area, no nausea or vomiting, no diarrhea, surgical overall, no new symptoms, no events overnight. Review of Systems Review of Systems: Review of system otherwise was unremarkable. Physical Exam Physical Exam: Vital signs are stable, no JVD, S1-S2, distant breath sounds, abdomen is postop, no edema, neurologically she is nonfocal. Results & Data Vital Signs (Past 12 Hours) Vital Signs Pulse Resp BP Pulse Ox 02/26/19 11:00 110 H 20 132/88 95 02/26/19 10:00 100 H 21 106/73 93 02/26/19 09:00 93 H 31 H 141/76 H 98 02/26/19 08:00 91 H 16 143/78 H 98 02/26/19 07:00 97 H 13 97 02/26/19 06:00 94 H 19 125/71 91 02/26/19 05:00 93 H 17 116/89 97 Laboratory Results Labs were reviewed she has no leukocytosis, hematocrit is stable, bicarb is down due to hyperchloremia. Diagnostic Findings No new imaging.
[2019-02-27] MEDS: HYDROmorphone INJ 0.5 MG/0.5 ML SYR IV PRN ×6 (02:12→23:31)
[2019-02-27] MEDS: ONDANSETRON INJ 2 MG/ML 2 ML VIAL IV PRN (02:13)
[2019-02-27] MEDS: SODIUM CHLORIDE 0.45 % 1,000 ML IV SCH (05:18)
[2019-02-27] MEDS: metroNIDAZOLE 500 MG/100 ML BAG IV SCH (06:06)
[2019-02-27 07:11] LABS: BUN Creatinine Ratio 28.6 (10-20); Creatinine Clr Calc Pharmacy 19.7 ml/min; Est GFR (Non-African American) 35.4; Magnesium 2.2 mg/dl (1.8-2.4); Potassium 4.2 mmol/L (3.5-5.1)
[2019-02-27 07:20] LABS: Phosphorus 1.6 mg/dl (2.5-4.9)
--- NOTE | 2019-02-27 07:28 | Progress Note ---
Date of Service February 27, 2019 Assessment & Plan (1) Mass of colon: will stop IV atbx, cont ice only today, cont Tpn check labs, keep kuhn for now- can d/c when improved mobility give some lasix this am Subjective comfortable and resting this am Tpn running, rec IV atbx- will stop, kuhn in place no emesis Physical Exam Physical Exam: no acute chgs- abd - mild distention Results & Data Vital Signs (Past 12 Hours) Vital Signs Temp Pulse Pulse Resp BP Pulse Ox 02/26/19 22:50 36.4 C L 55 L 16 141/76 H 92 02/26/19 20:06 36.8 C 103 H 16 117/89 94
[2019-02-27] MEDS ORDERED: FUROSEMIDE 20 MG in SYRINGE 0 ML IV ONE (07:45)
[2019-02-27] MEDS ORDERED: POTASSIUM PHOS 3 MMOL/1 ML INFUSION IV STA (08:23)
[2019-02-27] MEDS: CIPROFLOXACIN 400 MG/200 ML BAG IV SCH (08:40)
[2019-02-27] MEDS ORDERED: POTASSIUM PHOSPHATE 9 MMOL in SODIUM CHLORIDE 0.9% 250 ML IV ONE (08:45)
[2019-02-27] MEDS: HEPARIN SOD 5,000 UNIT/0.5 ML VIAL SQ SCH ×2 (09:52→20:18)
[2019-02-27 15:59] LABS: Albumin Level 2.3 gm/dl (3.4-5.0); BUN Creatinine Ratio 30.2 (10-20); Calcium 8.1 mg/dl (8.5-10.1); Creatinine Clr Calc Pharmacy 19.7 ml/min; Est GFR (Non-African American) 35.4; Potassium 4.5 mmol/L (3.5-5.1)
[2019-02-27] MEDS ORDERED: CUSTOM CENTRAL PN IV SCH (16:00)
[2019-02-27 16:03] LABS: Albumin Globulin Ratio 0.9 (0.9-2); Bilirubin,Total 0.4 mg/dl (0.2-1); Globulin 2.6 gm/dl (2.5-4.0); Phosphorus 1.7 mg/dl (2.5-4.9); Total Protein 4.9 gm/dl (6.4-8.2)
--- NOTE | 2019-02-27 16:30 | Hospitalist Progress Note ---
Date of Service February 27, 2019 Assessment & Plan (1) Mass of colon: had Ileocolic resection with ileocolic anastomosis and umbilical hernia repair, POD 2 cont TPN, watch electrolytes, DC ivf Surgical input appreciated, We will follow-up pathology report and oncology consult per results (2) Lesion of left lung: CT of chest shows a left lower lobe lobulated lesion 11 mm in size concerning for malignancy. Question of primary lesion versus metastasis. No shortness of breath or coughing at this time follow-up for now, because patient has Colon mass, will take care of colon mass and then look into to how to deal with this spot (3) Small bowel obstruction: see above (4) Chronic pain: Morphine 15 mg p.o. twice daily as outpatient. Placed on morphine 4 mg IV every 4 hours as needed. Pain well controlled, (5) Hypothyroid: We will start 1/2 home dose and follow up (6) Mobitz (type) II atrioventricular block: f/u (7) Anxiety: post op now, will f/u (8) CKD (chronic kidney disease) stage 4, GFR 15-29 ml/min: Creatinine 1.3 from 1.6 , will continue watch, possibly in baseline, (9) Hypernatremia: Likely from IV fluid, you need to follow up with your primary care physician in 1 week, - take medication as instructed, never overdose or any misuse, or take with alcohol, because misuse of medicine may cause organ damage or , call me, or your primary care physician if have questions of discharge medicaitons. - call your primary care physician, or go to local emergency room if has any fever/chill, chest pain, shortness of breathing, nausea/vomiting/abdominal pain, facial droop/slurry speech/local weakness, or if has any questions. - fall precaution - diet as instructed - you need to follow up with your subspecialist, such as Dr. aguilar, f/u Discussed with 2 daughters at bedside, answered all questions, discussed about CODE STATUS, patient is okay CPR however no cardioversion no intubation, Increase activity, PTOT Subjective She sitting up in chair, obvious weakness, was feeling frustrated because PICC line was having leakage, which needed to be replaced, uncomfortable genera lized weakness, denies nausea vomiting, denies fever and chill, however has upper swelling, she is on TPN, Review of Systems Review of Systems: Review of Systems Constitutional: positive weakness, or fatigue Respiratory: no cough, sputum, wheezing, Cardiac: No chest pain, No orthopnea, Abdomen: no passing gas Musculoskeletal: joint pain, : No dysuria, No urinary frequency Neurologic: No paralysis, No weakness, No numbness/tingling Psychiatric: No depression symptoms, Heme: Sporadic bluish in the skin because of IV access, n Skin: No rash, No itch, Physical Exam Physical Exam: General Appearance: frail, weak, WD/WN, no apparent distress Eyes: normal inspection, PERRL, EOMI, sclerae normal ENT: normal ENT inspection, hearing grossly normal, pharynx normal Neck: supple, no adenopathy, thyroid normal, Respiratory/Chest: chest non-tender, decreased breath sounds, Cardiovascular: regular rate, rhythm, no JVD, no murmur Abdomen: - bowel sounds, mild tender, soft, no organomegaly, Extremities: normal range of motion, non-tender, normal inspection, 1+ pedal edema, Neurologic/Psychiatric: road train 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 II-XII nml as tested, no motor/sensory deficits, alert, normal mood/affect, oriented x 3 Results & Data Vital Signs (Past 12 Hours) Vital Signs Temp Pulse Pulse Resp BP Pulse Ox 02/27/19 15:11 37.1 C 96 H 14 134/84 91 02/27/19 14:28 94 02/27/19 12:47 37.0 C 101 H 16 93 02/27/19 12:45 84 L 02/27/19 07:47 36.4 C L 100 H 11 L 128/66 96 Laboratory Results - last 24 hr 02/27/19 02/27/19 02/27/19 05:48 12:07 15:11 Sodium 146 H 146 H Potassium 4.2 D 4.5 Chloride 118 H 119 H Carbon Dioxide 21 20 L Anion Gap 7.0 8.0 BUN 38 H 40 H Creatinine 1.33 H 1.33 H Est Cr Clr Drug Dosing 19.7 19.7 Est GFR ( Amer) 41.0 41.0 Est GFR (Non-Af Amer) 35.4 35.4 BUN/Creatinine Ratio 28.6 H 30.2 H Glucose 165 H 175 H POC Glucose 173 H Calcium 8.0 L 8.1 L Phosphorus 1.6 L 1.7 L Magnesium 2.2 Total Bilirubin 0.4 AST 27 ALT 17 Alkaline Phosphatase 34 L Total Protein 4.9 L Albumin 2.3 L Globulin 2.6 Albumin/Globulin Ratio 0.9 Triglycerides 83
--- NOTE | 2019-02-27 16:55 | XRay Report ---
XR chest 1V portable CLINICAL HISTORY: PICC PLACEMENT COMPARISON STUDY: 02/23/2019 FINDINGS: The heart remains enlarged. There has been interval placement of a right-sided PICC cathete r. The tip projects over the age or caval junction. There are bilateral pleural effusions right great er than left. There are associated basilar airspace opacities likely atelectatic. There is an old rig ht humeral fracture.[ IMPRESSION: Interval placement of a right-sided PICC catheter. The tip projects over the atriocaval j unction. Electronically signed by: Praneeth Alexandre M.D. 02/27/2019 4:53 PM
[2019-02-28] MEDS: HYDROmorphone INJ 0.5 MG/0.5 ML SYR IV PRN ×4 (05:03→20:25)
--- NOTE | 2019-02-28 06:09 | Progress Note ---
Date of Service February 28, 2019 Assessment & Plan (1) Mass of colon: begin clears, no po meds yet- cont Tpn pt will need rehab per PT, consult oncology slow progress- ?d/c 3-4 days - possibly longer Subjective awake, alert, no acute chgs no emesis, on Tpn Physical Exam Physical Exam: awake, abd- mild distention- has some bowel sounds Results & Data Vital Signs (Past 12 Hours) Vital Signs Temp Pulse Resp BP Pulse Ox 02/27/19 22:55 36.4 C L 89 16 133/76 97
[2019-02-28 06:44] LABS: BUN Creatinine Ratio 36.3 (10-20); Calcium 7.9 mg/dl (8.5-10.1); Creatinine Clr Calc Pharmacy 22.6 ml/min; Est GFR (African American) 48.3; Est GFR (Non-African American) 41.7; Phosphorus 1.6 mg/dl (2.5-4.9); Potassium 4.3 mmol/L (3.5-5.1)
[2019-02-28] MEDS: HEPARIN SOD 5,000 UNIT/0.5 ML VIAL SQ SCH (08:11)
[2019-02-28] MEDS ORDERED: POTASSIUM PHOS 3 MMOL/1 ML INFUSION IV STA (08:45)
[2019-02-28] MEDS ORDERED: POTASSIUM PHOSPHATE 15 MMOL in SODIUM CHLORIDE 0.9% 250 ML IV SCH (09:00)
--- NOTE | 2019-02-28 09:40 | Consultation Report ---
DATE OF CONSULTATION: 02/28/2019 MEDICAL ONCOLOGY CONSULTATION REASON FOR CONSULTATION: T3N2Mx adenocarcinoma of the colon. HISTORY OF PRESENT ILLNESS: Marli is a very pleasant but quite frail 89-year-old female patient who was originally admitted to [facility] on 02/21/2019 with abdominal discomfort, proven to be a small-bowel obstruction. The patient is not the best of informants based on clinical notes. She has multiple comorbid issues including chronic kidney disease, Mobitz type 2 AV block, hypothyroidism, anxiety and COPD. Upon presentation to the Emergency Room, the patient underwent a CT scan of the abdomen and pelvis which revealed a cecal mass with mild obstructive findings. Additionally, there is 1.3 cm irregular pulmonary nodule in the superior segment of the left lower lobe, new as compared to films performed in November of 2016. The patient was seen in consultation by Dr. Jordan Urbina and taken to the operating room on 02/25/2019, performing a right hemicolectomy and umbilical hernia repair. The patient is in a state of recovery, currently receiving enteral feed. According to the nursing, has advanced to clear liquids this morning. She is in considerable discomfort and again Marli is not the best of informants and could really extract no further pertinent information regarding the be of her symptoms prior to admission. Path reported on 02/26 confirms adenocarcinoma of the right colon. Tumor was approximately 4 x 4 x 3.5 well-differentiated invading into the muscularis propria into the pericolorectal tissue. All surgical margins were negative. Seventeen lymph nodes were harvested, 5 of which contained metastatic disease. Primary service requesting consultation and guidance regarding the patient's diagnosis, prognosis and treatment options. PAST MEDICAL HISTORY: As discussed in the HPI. PAST SURGICAL HISTORY: Status post hysterectomy, appendectomy, cholecystectomy and her most recent colon resection and umbilical hernia repair. MEDICATIONS: Aspirin 81 mg p.o. daily, cholecalciferol 1000 units p.o. q.a.m., levothyroxine 50 mcg p.o. daily, morphine 15 mg p.o. b.i.d., prednisone 5 mg p.o. daily, promethazine 25 mg p.o. q. 6 hours p.r.n. ALLERGIES: CODEINE, ERYTHROMYCIN, PENICILLIN AND SULFA, CEFUROXIME, [place]. FAMILY HISTORY: Brother succumbed to sarcoma. No other neoplasia involving first-degree relatives. SOCIAL HISTORY: Apparently lives with family members who assist her care. She is a . She is nonsmoker and non-illicit drug user and denies alcohol. REVIEW OF SYSTEMS: Again, really not obtainable. The patient was quite distracted during today's interview. PHYSICAL EXAMINATION: GENERAL: A very pleasant 89-year-old female patient, appears somewhat uncomfortable, but certainly not in distress. VITAL SIGNS: Temperature 36.3, pulse 98, respiratory rate 14, blood pressure 137/79. SKIN: Without rash or lesion. HEENT: Head is atraumatic, normocephalic. EYES: PERRLA. Sclerae nonicteric. Nares patent without rhinorrhea or discharge. Throat clear. Tongue midline. Mucous membranes are moist. NECK: Supple. Trachea is midline. LYMPH: No cervical, supraclavicular palpable nodes. HEART: Regular rate and rhythm. LUNGS: Breath sounds are distant, but appear clear. No obvious rales or rhonchi heard. ABDOMEN: She has a sterile dressing over the new surgical wound. Abdomen is otherwise soft, nontender, nondistended. EXTREMITIES: No clubbing, cyanosis or edema. MUSCULOSKELETAL: Strength testing not done. Pulses are equal in all 4 quadrants. NEUROLOGIC: She is awake and alert and she is oriented. Cranial nerves grossly intact. LABORATORY DATA: Sodium 144, potassium 4.3, chloride 116, carbon dioxide 26, creatinine 1.16, BUN 42, phosphorus 1.6, total protein 4.9, albumin 2.3. IMPRESSION: 1. Pathologic stage III colorectal cancer. 2. 1.3 cm irregular pulmonary nodule in the left lower lobe. 3. Hypoalbuminemia. 4. Status post right hemicolectomy and umbilical hernia repair. 5. Hypoalbuminemia. 6. Chronic pain syndrome. 7. Electrolyte disorder. 8. Mobitz type 2 atrioventricular block. 9. Anxiety. PLAN: I have been asked to evaluate this very pleasant 89-year-old female patient recently diagnosed with stage III colorectal cancer. The patient had presented with nonspecific abdominal pain. CT scan of the abdomen and pelvis confirmed a small-bowel obstruction and a right-sided colonic mass. She was taken to the operating room on 25 of February, underwent right hemicolectomy as well as repair of the umbilical hernia. Path is consistent with stage III disease with 5 of 17 lymph nodes positive for metastatic disease. The patient also has a left lower lobe nodule which has not been diagnosed, and in addition was not present as compared to films from 2017. Nonetheless, currently her performance status is not conducive to adjuvant therapy. By current NCCN guidelines, stage III disease is treated with adjuvant chemotherapy particular combination oxaliplatin, 5-FU and leucovorin. However, the patient with marginal performance status, I would most likely offer 5-FU and leucovorin. Would prefer to discuss treatment options with the family at some point. She is early in healing process and her performance status needs to improve dramatically before I would consider adjuvant treatment. I agree with current medical management. I will continue to follow her periodically during her stay, but I anticipate reconvening as outpatient. I did not get into details with the patient herself as she was quite distracted throughout the entire interview. Thank you very much for allowing me to participate in her care. If you have any questions or concerns, feel free to contact me at any time.
--- NOTE | 2019-02-28 12:27 | Ultrasound Report ---
US venous doppler UE RT CLINICAL HISTORY: 89 years-old Female presenting with painful right upper extremity, rule out blood c lot. TECHNIQUE: Real-time grayscale and color and spectral Doppler ultrasound imaging of the veins of the right upper extremity was performed. Compression and augmentation were also utilized. COMPARISON: Chest x-ray from 02/27/2019. FINDINGS: Examination is limited by patient cooperation, the presence of bandages, and limitations in patient p ositioning. RIGHT: Internal jugular vein: Patent. Subclavian vein: Catheter in place within the right subclavian vein. The vein is patent. Axillary vein: Catheter in place within the axillary vein. The vein is occluded. Brachial vein: Only the distal portion of the brachial vein is visualized and is patent. Basilic vein (superficial): Not well visualized. Cephalic vein (superficial): Not well visualized. Radial vein: Not well visualized. Ulnar vein: Not well visualized. Other: None. IMPRESSION: Thrombus in the right axillary vein, which contains a catheter. Overall limited evaluation due to pat ient cooperation, the presence of bandages, and limitations in positioning. Subclavian vein remains p atent. Electronically signed by: Darío Wilson M.D. 02/28/2019 12:25 PM
--- NOTE | 2019-02-28 14:21 | Palliative Care Consultation ---
Date of Consultation February 28, 2019 Assessment & Plan (1) Goals of care, counseling/discussion: -89 year old female patient with PMH CKD stage IV, Mobitz type II AV block, hypothyroidism, anxiety, asthma, hypertension, chronic pain, and others, presented to the hospital a week ago with N/V, found to have small bowel obstruction. Patient also had colon mass and LLL lung lesion suspicious for malignancy. She underwent right hemicolectomy. Pathology reveals stage III colon cancer with 5/17 lymph nodes positive for malignancy as well. Heme/onc consulted but state that with patient's frailty and poor performance status, she would not be a current candidate for chemotherapy. Patient was previously on hospice care at home but was discharged in December 2018 due to prolonged prognosis. She now has right upper extremity DVT and was started on heparin gtt today. She is on clear liquid diet and receiving TPN until diet can be advanced. Plan was tentatively for patient to go to rehab at [facility], but patient is declining. She lives at home with her two daughters, one of which is currently ill, who thought patient should have some rehab before coming home. Palliative care is consulted to discuss goals of care. -met with patient in room 385. Patient is awake, alert and oriented. She stated, "everything hurts. Nothing is going right for me." She knows that she now has colon cancer and does not feel like she would want to undergo any chemotherapy for this anyway. she gave me permission to call her daughter Felicia to further discuss goals/plan of care. Her other daughter Marla just left the hospital. -Patient states she would prefer to go home and would even be amenable to [facility]. However, will need to determine her functional status and her daughters' thoughts on taking her home from the hospital. She now has the RUE DVT and will need a new PICC line placed. There are a few things that need to be determined prior to discharge and we will continue to discuss goals of care. -Called and left message for Felicia. -Will not make any changes to pain medication at this time. She is utilizing IV Dilaudid post-surgery. -PPS 40%. (2) Small bowel obstruction: (3) Mass of colon: (4) Lesion of left lung: (5) Chronic pain: (6) CKD (chronic kidney disease) stage 4, GFR 15-29 ml/min: (7) Mobitz (type) II atrioventricular block: Supervising Physician Co-Signing Physician Notes Late entry for pt seen and examined on 02/28 Pt seen in her room along with LION Carr PE: frail , elderly female, emotional and worried about daughter's health HEENT: EOMI, hearing WNL Resp: clear, unlabored on RA CV: irreg irreg, + LE edema Abd: soft, NT Neuro: A&O Agree with above note, assessment and plan as per LION Carr - will reach out to daughter when she is available. History of Present Illness Attending Physician: Maurice Carvalho MD, PhD, [facility] History of Present Illness This 89 year old female patient with PMH CKD stage IV, Mobitz type II AV block, hypothyroidism, anxiety, asthma, hypertension, chronic pain, and others, presented to the hospital a week ago with N/V, found to have small bowel obstruction. Patient also had colon mass and LLL lung lesion suspicious for malignancy. She underwent right hemicolectomy. Pathology reveals stage III colon cancer with 5/17 lymph nodes positive for malignancy as well. Heme/onc consulted but state that with patient's frailty and poor performance status, she would not be a current candidate for chemotherapy. Patient was previously on hospice care at home but was discharged in December 2018 due to prolonged prognosis. She now has right upper extremity DVT and was started on heparin gtt today. She is on clear liquid diet and receiving TPN until diet can be advanced. Plan was tentatively for patient to go to rehab at [facility], but patient is declining. She lives at home with her two daughters, one of which is currently ill, who thought patient should have some rehab before coming home. Palliative care is consulted to discuss goals of care. Thank you kindly for this consult. I will follow throughout hospitalization. Allergies Allergy/AdvReac Type Severity Reaction Status Date / Time codeine Allergy Unknown CAN'T Verified 02/21/19 02:40 REMEMBER erythromycin base Allergy Unknown CAN'T Verified 02/21/19 02:40 REMEMBER Penicillins Allergy Unknown CAN'T Verified 02/21/19 02:40 REMEMBER Sulfa (Sulfonamide Allergy Unknown CAN'T Verified 02/21/19 02:40 Antibiotics) REMEMBER cefuroxime [From Ceftin] AdvReac Intermediate Diarrhea Verified 02/21/19 02:40 banana AdvReac Mild GI symptoms Verified 02/21/19 02:40 melon AdvReac Verified 02/23/19 13:47 Cantaloupe AdvReac Mild GI Uncoded 02/21/19 02:40 SYMPTOMS FROM UNSPECIFIED MELONS Home Medications Home Medications Medication Instructions Recorded Confirmed Type aspirin 81 mg PO DAILY 11/29/18 02/21/19 History cholecalciferol (vitamin D3) 1,000 unit PO QPM 11/29/18 02/21/19 History [Vitamin D3] levothyroxine 50 mcg PO DAILY 11/29/18 02/21/19 History morphine 15 mg PO BID 11/29/18 02/21/19 History prednisone 5 mg PO DAILY 11/29/18 02/21/19 History promethazine 25 mg PO Q6H PRN 11/29/18 02/21/19 History Patient History Medical History Lesion of left lung (Acute) Mass of colon (Acute) Small bowel obstruction (Acute) Sacral ulcer (Chronic) 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) CAD (coronary artery disease) (Chronic) Mobitz (type) II atrioventricular block (Chronic) Hypertension (Resolved) Asthma (Chronic) Acute kidney injury superimposed on chronic kidney disease (Resolved) Chronic kidney disease (Chronic) Back fracture Elevated troponin Epigastric abdominal pain Ischemic colitis Nausea and vomiting Sepsis due to cellulitis Surgical History H/O: hysterectomy S/P appendectomy S/P cholecystectomy Family History Other No significant family history Social History Preferred Language: [place] Communication Ability: Effective Beliefs That Will Affect Care: None marital status: / Current Living Situation: Family Feels Safe at Home: Yes Smoking Status: Never smoker Hx Alcohol Use: No Hx Substance Use: No Review of Systems Constitutional: + weakness Ear, Nose, Mouth, Throat: no dysphagia Respiratory: no cough and no dyspnea Cardiovascular: + edema; no chest pain Gastrointestinal: + abdominal pain; no nausea and no vomiting Musculoskeletal: + body aches (generalized pain) Neurologic: no confusion Psychiatric: feeling sad about diagnosis Physical Exam Constitutional: + thin and + frail appearing; no acute distress ENMT: external ear and nose normal, oropharynx normal Ears: no hearing impairment Neck: normal visual inspection Respiratory: normal respiratory effort, lungs clear to auscultation Cardiovascular: Rate/Rhythm: + irregularly irregular Extremities: + edema (pedal edema +2-3) Gastrointestinal (Abdomen): Inspection/Auscultation: normal bowel sounds; abdomen not distended Percussion/Palpation: + abdomen tender Skin: + ecchymosis (on left side of face) Neurologic: awake; not confused Psychiatric: Orientation: alert and oriented x 3 Affect: + tearful affect Results & Data Vital Signs (Past 12 Hours) Vital Signs Temp Pulse Resp BP Pulse Ox 02/28/19 07:51 36.3 C L 98 H 14 137/79 97 Time Spent Midlevel 50 minutes with >50% of time spent at bedside with patient discussing condition and GOC.
[2019-02-28] MEDS: Heparin IV Low Dose *NO* Bolus IV SCH ×2 (14:26→14:28)
[2019-02-28 14:42] LABS: Basophils # (auto) 0.02 K/uL (0-0.2); Basophils % (auto) 0.2 %; Eosinophils # (auto) 0.11 K/uL (0-0.5); Eosinophils % (auto) 1.1 %; Hematocrit (blood only) 29.4 % (37-47); Hemoglobin 9.2 g/dL (12.0-16.0); Lymphocytes # (auto) 1.05 K/uL (1.2-3.4); Lymphocytes % (auto) 10.2 %; Mean Corpuscular Volume 97.4 fL (80-100); Mean Platelet Volume 9.9 fL (7.4-10.4); Monocytes % (auto) 6.8 %; Neutrophils # (auto) 8.36 K/uL (1.4-6.5); Neutrophils % (auto) 80.7 %; Platelet Count 175 K/uL (130-400); RDW Coefficient of Variation 17.2 % (11.5-14.5); RDW Standard Deviation 60.7 fL (36.4-46.3); Red Blood Count 3.02 M/uL (4.2-5.4); White Blood Count 10.34 K/uL (4.8-10.8)
[2019-02-28 14:44] LABS: Mean Corpuscular Hgb Conc 31.3 g/dL (32-36)
[2019-02-28 15:01] LABS: INR 1.1 (0.9-1.1); Partial Thromboplastin Ratio 1.2; Partial Thromboplastin Time 32.2 Seconds (21.0-31.0); Prothrombin Time 11.5 Seconds (9.0-12.0)
[2019-02-28] MEDS ORDERED: CUSTOM CENTRAL PN IV SCH (16:00)
--- NOTE | 2019-02-28 16:41 | Hospitalist Progress Note ---
Date of Service February 28, 2019 Assessment & Plan (1) Mass of colon: had Ileocolic resection with ileocolic anastomosis and umbilical hernia repair, POD 2 colon cancer , at least stage 3, Oncology consulted , per pathology report, the border of excision were negative for cancer cell, however 5 out of 17 lymph nodes sent were positive for cancer cell cont TPN, watch electrolytes, DC ivf Surgical input appreciated, there is report of possible PICC line leakage, PICC was changed and reinsert two time already, however after detailed talking to registered nurse possible only minimal leakage or no obvious leakage, okay to continue TPN and heparin drip for now. If currently PICC line found still leakage, will stop TPN, will have new peripheral 9line for heparin drip and IV fluid, and looking for PICC line in other arm for TPN Right upper acute DVT started on low-dose heparin drip without bolus after discussed with Dr. Urbina (2) Lesion of left lung: CT of chest shows a left lower lobe lobulated lesion 11 mm in size concerning for malignancy. Question of primary lesion versus metastasis. No shortness of breath or coughing at this time follow-up for now, because patient has Colon mass, will take care of colon mass and then look into to how to deal with this spot Because of colon cancer stage III, the spot possible from the cancer metastasis (3) Small bowel obstruction: see above (4) Chronic pain: Morphine 15 mg p.o. twice daily as outpatient. Placed on morphine 4 mg IV every 4 hours as needed. Pain well controlled, (5) Hypothyroid: We will start 1/2 home dose and follow up (6) Mobitz (type) II atrioventricular block: f/u (7) Anxiety: post op now, will f/u (8) CKD (chronic kidney disease) stage 4, GFR 15-29 ml/min: Creatinine 1.1 today , in baseline, (9) Hypernatremia: Likely from IV fluid, resolved Discussed with 1 of daughters at bedside, with pt, Discussed with palliative care and Dr. Urbina, but he ate your care service involved, discussed about CODE STATUS, patient is okay CPR however no cardioversion no intubation, Increase activity, PTOT (10) Colon cancer: (11) Acute DVT (deep venous thrombosis): Subjective obvious depress and sad this morning, because in the bad news of colon cancer, There was right upper extremity DVT, new diagnosed, associated with right upper arm swelling, there is report of possible PICC line leakage, PICC was changed and reinsert two time already, however after detailed talking to registered nurse possible only minimal leakage or no obvious leakage, okay to continue TPN and heparin drip for now Patient has clear for her to have clear liquid diet however patient has no bowel movement not passing gas yet denies abdominal pain Review of Systems Review of Systems: Review of Systems Constitutional: positive weakness, or fatigue Respiratory: no cough, sputum, wheezing, Cardiac: No chest pain, No orthopnea, Abdomen: No pain, No nausea, No vomiting, has been tolerating clear Musculoskeletal: Positive whole body intact, positive right arm swelling, : No dysuria, No urinary frequency, No incontinence, No hematuria Neurologic: No paralysis, No weakness, No numbness/tingling Psychiatric: possible depression and sad Skin: Sporadic bluish in is because of IV access, swelling, patient not in place, Physical Exam Physical Exam: General Appearance: frail, weak, WD/WN, sad, but no apparent distress Eyes: normal inspection, PERRL, EOMI, sclerae normal ENT: dry mucus membrane, normal ENT inspection, hearing grossly normal, pharynx normal Neck: supple, no adenopathy, thyroid normal, Respiratory/Chest: chest non-tender, decreased breath sounds, Cardiovascular: regular rate, rhythm, no JVD, no murmur Abdomen: - bowel sounds, mild tender, soft, no organomegaly, Extremities: Sporadic bluish in is because of IV access, swelling, patient not in place, normal range of motion, non-tender, normal inspection, 1+ pedal edema, Neurologic/Psychiatric: human factors advisor lead II-XII nml as tested, no motor/sensory deficits, alert, normal mood/affect, oriented x 3 Results & Data Vital Signs (Past 12 Hours) Vital Signs Temp Pulse Pulse Resp BP Pulse Ox 02/28/19 15:15 36.3 C L 92 H 16 147/72 H 94 02/28/19 07:51 36.3 C L 98 H 14 137/79 97 Laboratory Results - last 24 hr 02/27/19 02/27/19 02/28/19 17:56 23:58 05:43 WBC RBC Hgb Hct MCV MCH MCHC RDW Std Deviation RDW Coeff of Rashida Plt Count MPV Immature Gran % (Auto) Neut % (Auto) Lymph % (Auto) [place] % (Auto) Eos % (Auto) Baso % (Auto) Immature Gran # (Auto) Neut # (Auto) Lymph # (Auto) [place] # (Auto) Eos # (Auto) Baso # (Auto) PT INR APTT PTT Ratio Sodium 144 Potassium 4.3 Chloride 116 H Carbon Dioxide 26 Anion Gap 2.0 L BUN 42 H Creatinine 1.16 Est Cr Clr Drug Dosing 22.6 Est GFR ( Amer) 48.3 Est GFR (Non-Af Amer) 41.7 BUN/Creatinine Ratio 36.3 H Glucose 155 H POC Glucose 149 H 171 H Calcium 7.9 L Phosphorus 1.6 L Magnesium 2.0 02/28/19 02/28/19 02/28/19 06:22 12:19 14:18 WBC 10.34 RBC 3.02 L Hgb 9.2 L Hct 29.4 L MCV 97.4 MCH 30.5 MCHC 31.3 L RDW Std Deviation 60.7 H RDW Coeff of Rashida 17.2 H Plt Count 175 MPV 9.9 Immature Gran % (Auto) 1.0 Neut % (Auto) 80.7 Lymph % (Auto) 10.2 [place] % (Auto) 6.8 Eos % (Auto) 1.1 Baso % (Auto) 0.2 Immature Gran # (Auto) 0.10 H Neut # (Auto) 8.36 H Lymph # (Auto) 1.05 L [place] # (Auto) 0.70 H Eos # (Auto) 0.11 Baso # (Auto) 0.02 PT INR APTT PTT Ratio Sodium Potassium Chloride Carbon Dioxide Anion Gap BUN Creatinine Est Cr Clr Drug Dosing Est GFR ( Amer) Est GFR (Non-Af Amer) BUN/Creatinine Ratio Glucose POC Glucose 159 H 204 H Calcium Phosphorus Magnesium 02/28/19 14:18 WBC RBC Hgb Hct MCV MCH MCHC RDW Std Deviation RDW Coeff of Rashida Plt Count MPV Immature Gran % (Auto) Neut % (Auto) Lymph % (Auto) [place] % (Auto) Eos % (Auto) Baso % (Auto) Immature Gran # (Auto) Neut # (Auto) Lymph # (Auto) [place] # (Auto) Eos # (Auto) Baso # (Auto) PT 11.5 INR 1.1 APTT 32.2 H PTT Ratio 1.2 Sodium Potassium Chloride Carbon Dioxide Anion Gap BUN Creatinine Est Cr Clr Drug Dosing Est GFR ( Amer) Est GFR (Non-Af Amer) BUN/Creatinine Ratio Glucose POC Glucose Calcium Phosphorus Magnesium
[2019-02-28] MEDS: Heparin Adult LOW DOSE Wt-Based Dextrose 5% 25,000 units/500 mL IV SCH (17:50)
[2019-02-28] MEDS ORDERED: METOPROLOL TARTRATE 1 MG/ML VIAL IV STA ×2 (21:18→22:19)
[2019-02-28] MEDS ORDERED: SODIUM CHLORIDE 0.9% 1000ML 500 ML IV ONE (21:45)
[2019-02-28] MEDS ORDERED: dilTIAZem HCl 5 MG/ML 5 ML VIAL IV STA (22:43)
[2019-02-28] MEDS ORDERED: dilTIAZem HCl 125 MG in DEXTROSE 5% 100 ML IV SCH (22:45)
--- NOTE | 2019-02-28 22:58 | Progress Note ---
Date of Service February 28, 2019 Subjective RN called this evening around 21:30 for concern of pt having neck pain and being tachycardic to 160s Stat EKG ordered Pt was in Afib with RVR BP was 131/72 and lopressor 5mg IV x 1 was given with improvement in rate to 130s Pt's blood pressure was rechecked and another 2.5mg of IV lopressor provided Pt's BP decreased to 90s/50s and a 500cc NS bolus was given Pt's rate remained stable around 130-140 but BP improved to 100/70 She was transferred to PCU for cardizem drip with bolus of 10mg x 1 (02/2019 ECHO with EF of 45%) Will continue to monitor pt closely Results & Data Vital Signs (Past 12 Hours) Vital Signs Temp Pulse Pulse Pulse Resp BP BP 02/28/19 22:37 142 H 100/70 02/28/19 22:27 132 H 98/64 L 02/28/19 21:39 172 H 131/72 02/28/19 15:15 36.3 C L 92 H 16 147/72 H Pulse Ox 02/28/19 22:37 02/28/19 22:27 02/28/19 21:39 02/28/19 15:15 94
[2019-03-01] MEDS: HYDROmorphone INJ 0.5 MG/0.5 ML SYR IV PRN ×6 (00:02→19:26)
[2019-03-01 00:47] LABS: Partial Thromboplastin Ratio 2.7
[2019-03-01 00:52] LABS: Partial Thromboplastin Time 73.2 Seconds (21.0-31.0)
[2019-03-01] MEDS: ONDANSETRON INJ 2 MG/ML 2 ML VIAL IV PRN (02:01)
[2019-03-01] MEDS ORDERED: SENNA 8.8 MG/5 ML UDP PO PRN (08:06)
[2019-03-01 08:18] LABS: Partial Thromboplastin Ratio 2.5
--- NOTE | 2019-03-01 09:30 | Cardiology Progress Note ---
Date of Service March 01, 2019 Assessment & Plan (1) Atrial fibrillation with RVR: She had recurrence of atrial fibrillation last evening with a rapid heart rate of over 170 bpm on 12-lead electrocardiography. It is paroxysmal, converted to normal rhythm at around 5:30 AM today therefore was present for less than 12 hours although I am not sure exactly the time of onset. She remains on intravenous diltiazem this morning, I have discontinued that. I do not know if she has had atrial fibrillation in the past, she is not familiar with it but she may have been on beta-parish for that although I am not sure why that was started historically. She may need something for rate control now, she had heart block on rate control medications recently here and is well documented. She has not had heart block on intravenous diltiazem so perhaps oral diltiazem will cause less heart block for her then will beta-blockade. The normal approach would be to implant a pacemaker so that we can control the tachycardia, I mentioned that to her but she is not interested in that approach. We should therefore try to walk the line between rate control and heart block by being careful with AV jailene blocking medications. Anticoagulation would be a good idea if she can tolerate it, she is on heparin but that can be discontinued and she could be started on some other agent at the discretion of the primary service. (2) Mobitz (type) II atrioventricular block: She had AV block (I believe it was 2-1 AV block primarily) while on low- dose carvedilol in the past. Now on diltiazem she did not have heart block. I am hopeful that Cardizem can be used to help control heart rate although it will probably not give good heart rate control but perhaps it will be sufficient. I am going to start oral diltiazem tomorrow morning but stop intravenous today sin ce she is no longer in atrial fibrillation. She needs to remain on telemetry at least over the weekend to make sure she does not have heart block or recurrent rapid atrial fibrillation. (3) CAD (coronary artery disease): She has presumed coronary disease, I believe this was based on a nuclear study in the past. I do not think we need to treat her aggressively for this. Subjective Events of last night reviewed, she had a recurrence of atrial fibrillation identified around 930 last evening, that converted back to sinus rhythm this morning. When she had this she was started on heparin and intravenous diltiazem, on which she remains. She is feeling well today, she did feel her tachycardia yesterday evening when it occurred. She does not recall having it before. Physical Exam Physical Exam: Constitutional: Alert, cooperative and in no distress. HEENT: Unremarkable Neck: No jugular venous distention, carotid pulses are normal and equal bilaterally without bruits. Pulmonary: Clear to auscultation bilaterally. Cardiac: Regular rhythm with grade 2/6 holosystolic murmur at the apex, no gallop or rub. Abdomen: Soft, nontender with normal bowel sounds. Extremities: No edema. Distal pulses intact. Neurologic: No focal findings. Gait is steady. Skin: No rash, ecchymoses or petechiae. Results & Data Vital Signs (Past 12 Hours) Vital Signs Temp Pulse Pulse Pulse Pulse Resp BP 03/01/19 07:09 36.8 C 54 L 18 03/01/19 05:35 89 03/01/19 03:44 36.8 C 114 H 20 03/01/19 02:01 03/01/19 01:28 03/01/19 00:58 03/01/19 00:05 36.6 C 109 H 20 02/28/19 23:33 37.1 C 132 H 21 02/28/19 23:25 176 H 02/28/19 22:37 142 H 02/28/19 22:27 132 H 98/64 L 02/28/19 21:39 172 H 131/72 BP BP Pulse Ox 03/01/19 07:09 113/80 90 03/01/19 05:35 122/62 03/01/19 03:44 110/74 93 03/01/19 02:01 114/61 03/01/19 01:28 90/48 L 03/01/19 00:58 89/59 L 03/01/19 00:05 98/67 L 92 02/28/19 23:33 127/58 L 94 02/28/19 23:25 02/28/19 22:37 100/70 02/28/19 22:27 02/28/19 21:39 Diagnostic Findings An electrocardiogram done last evening at around 9:15 PM shows atrial fibrillation with a rapid heart rate at 176 bpm. Telemetry: She was placed on telemetry last evening when the atrial fibrillation was identified, she was rapid until received diltiazem and then the rate somewhat controlled but still greater than 100. She then converted to sinus rhythm at 5:30 AM today. No evidence of heart block on diltiazem following conversion.
--- NOTE | 2019-03-01 10:10 | XRay Report ---
XR chest 1V portable CLINICAL HISTORY: CONFIRM PICC PLACEMENT HANH COMPARISON STUDY: CT of the chest February 21, 2019. Chest radiograph February 27, 2019. FINDINGS: Tip of left PICC projects over the distal SVC. Tip of right PICC projects over the proximal right atrium. There is no pneumothorax. There are small bilateral pleural effusions with bibasilar o pacities. Patient is rotated. Cardiomegaly is noted. There is no evidence for pulmonary edema. There is no pneumothorax. IMPRESSION: 1. Tip of left PICC projects over the distal SVC. 2. Tip of right PICC projects over the proximal right atrium. 3. Small bilateral pleural effusions with bibasilar opacities. Electronically signed by: Frank Velez M.D. 03/01/2019 10:09 AM
--- NOTE | 2019-03-01 10:34 | Progress Note ---
Date of Service March 01, 2019 Assessment & Plan (1) Colon cancer: adv to full liquids, on IV Heparin No Lovenox cont Tpn if possible until sure she will tolerate po Subjective events of evening noted- heart rate better Physical Exam Physical Exam: much more alert today abd- mild distention- has good bowel sounds Results & Data Vital Signs (Past 12 Hours) Vital Signs Temp Pulse Pulse Pulse Pulse Resp BP 03/01/19 07:09 36.8 C 54 L 18 03/01/19 05:35 89 03/01/19 03:44 36.8 C 114 H 20 03/01/19 02:01 03/01/19 01:28 03/01/19 00:58 03/01/19 00:05 36.6 C 109 H 20 02/28/19 23:33 37.1 C 132 H 21 02/28/19 23:25 176 H 02/28/19 22:37 142 H 100/70 BP Pulse Ox 03/01/19 07:09 113/80 90 03/01/19 05:35 122/62 03/01/19 03:44 110/74 93 03/01/19 02:01 114/61 03/01/19 01:28 90/48 L 03/01/19 00:58 89/59 L 03/01/19 00:05 98/67 L 92 02/28/19 23:33 127/58 L 94 02/28/19 23:25 02/28/19 22:37
--- NOTE | 2019-03-01 10:58 | Palliative Care Progress Note ---
Date of Service March 01, 2019 Assessment & Plan (1) Goals of care, counseling/discussion: -Patient went into afib with rvr last night. Transferred to PCU for IV cardizem. Plan is to dc cardizem gtt today as she is no longer in afib with rvr, and will start PO cardizem tomorrow. -Will not make any changes to pain medication at this time. She is utilizing IV Dilaudid post-surgery. -Patient feels about the same today. Still has generalized pain and history of chronic pain. -Uncertain of discharge plan at this time. Daughter Felicia prefers patient go to rehab before coming home, but ultimately plan is for patient to return home. Uncertain if the plan will be for hospice at that time, but patient is amenable to continuing discussion about this. -Continue current treatment. -Called patient's daughter Felicia again today, no answer. Will continue to follow. -PPS 40%. (2) Small bowel obstruction: (3) Mass of colon: (4) Lesion of left lung: (5) Chronic pain: (6) CKD (chronic kidney disease) stage 4, GFR 15-29 ml/min: Subjective Patient went into afib with rvr last evening. Was transferred to telemetry unit for IV Cardizem. Cardiology following. Patient is doing about the same today. Still says, "Everything just hurts." But could not elaborate on exactly where she is having pain. Tolerating her diet. Surgeon advanced her to full liquids. Review of Systems Constitutional: + weakness Ear, Nose, Mouth, Throat: no dysphagia Respiratory: no cough and no dyspnea Cardiovascular: + edema; no chest pain Gastrointestinal: + abdominal pain; no nausea and no vomiting Musculoskeletal: + back pain and + body aches Neurologic: no confusion Psychiatric: + anxiety Physical Exam Constitutional: + thin and + frail appearing; no acute distress ENMT: external ear and nose normal, oropharynx normal Ears: no hearing impairment Neck: normal visual inspection Respiratory: normal respiratory effort, lungs clear to auscultation Cardiovascular: Rate/Rhythm: regular rate Extremities: + edema (pedal edema +2-3) Gastrointestinal (Abdomen): Inspection/Auscultation: normal bowel sounds; abdomen not distended Percussion/Palpation: + abdomen tender Skin: + ecchymosis (on left side of face) Neurologic: awake; not confused Psychiatric: Orientation: alert and oriented x 3 Affect: + tearful affect Results & Data Vital Signs (Past 12 Hours) Vital Signs Temp Pulse Pulse Pulse Pulse Resp BP 03/01/19 07:09 36.8 C 54 L 18 113/80 03/01/19 06:20 93 H 03/01/19 05:35 89 122/62 03/01/19 03:44 36.8 C 114 H 20 110/74 03/01/19 02:01 114/61 03/01/19 01:28 90/48 L 03/01/19 00:58 89/59 L 03/01/19 00:05 36.6 C 109 H 20 98/67 L 02/28/19 23:33 37.1 C 132 H 21 127/58 L 02/28/19 23:25 176 H Pulse Ox 03/01/19 07:09 90 03/01/19 06:20 03/01/19 05:35 03/01/19 03:44 93 03/01/19 02:01 03/01/19 01:28 03/01/19 00:58 03/01/19 00:05 92 02/28/19 23:33 94 02/28/19 23:25 Time Spent Midlevel 35 minutes with >50% of time spent at bedside with patient discussing condition and GOC.
[2019-03-01 11:05] LABS: BUN Creatinine Ratio 34.3 (10-20); Calcium 7.7 mg/dl (8.5-10.1); Creatinine Clr Calc Pharmacy 20.4 ml/min; Est GFR (African American) 40.6; Magnesium 1.9 mg/dl (1.8-2.4); Phosphorus 2.8 mg/dl (2.5-4.9); Potassium 5.2 mmol/L (3.5-5.1); Troponin I 0.166 ng/ml (0-0.045)
[2019-03-01] MEDS: HYDROCORTISONE SOD 50 MG in SYRINGE 0 ML IV SCH ×2 (12:12→23:20)
--- NOTE | 2019-03-01 13:42 | Pharmacy Report ---
PHA: Parenteral Nutrition Con - Date of Service March 01, 2019 - Scope Pharmacy was consulted on 02/26 to manage parenteral nutrition orders for this patient. - Subjective The patient is currently on day 3 of central parenteral nutrition for colon mass s/p ileocecal resection and NPO status x 6 days prior to PN initiation. - Objective Height: 4 ft 9 in Weight: 55.8 kg Diet: Full Liquid Vascular Access:: PICC Intake & Output (24hrs):: Intake & Output 02/27/19 02/28/19 03/01/19 03/02/19 06:59 06:59 06:59 06:59 Intake Total 2108.333 / 2108.333 572.258 / 119.315 9718.667 / 1771.667 136.167 / 136.167 Output Total 645 / 645 1500 / 1500 550 / 550 Balance 1463.333 / 1463.333 -927.742 / -690.429 4113.667 / 1221.667 136.167 / 136.167 Weight 51.3 kg 55.8 kg Laboratory Data (Last 24 Hr):: 03/01/19 03/01/19 10:14 10:14 Sodium 139 Potassium 5.2 H D Chloride 111 H Carbon Dioxide 25 BUN 46 H Creatinine 1.34 H Glucose 190 H Calcium 7.7 L Phosphorus 2.8 D Magnesium 1.9 Nutrition Assessment:: Please refer to the Notes section of the EMR for the most recent technical lead note. - Assessment Ms. Madison has had multiple issues with her IV access over the past 24 hours. Her PICC line was replaced yesterday and then again today. From review of the records and report from nursing, her PN was hung on time last night and had minimal time without this AM while they placed new access. She has been advanced to a full liquid diet but was nauseous this AM and with poor po intake so TPN will be continued for the time being. With regards to macronutrients/fluid volume: * AA and fats are at goal (TG are acceptable) * Dextrose is not yet at goal but is acceptable to increase as e-lytes not profoundly low. Will slowly increase since BSGs are a little elevated. * We have been keeping PN at minimum volume. Today Dr. James reported patient is quite dry but edema in the lower extremities. Plan was discussed with him to keep PN at minimum volume. With regards to electrolytes: * K level this AM was high so TPN was stopped ~1200 to prevent a further rise in K (SCr has increased from yesterday) * Phos has increased significantly. Will continue the same in the PN, not taking into account the additional she received out of the bag yesterday * Insulin will be added at ~0.1 units/g of dextrose; however, she may need more now that hydrocortisone has been started - Plan For day 4 of PN administration, the following will be ordered: Macronutrients Amino acids 60 grams/day Dextrose 150 grams/day Lipids 30 grams/day Micronutrients Sodium phosphate 30 MMol Magnesium sulfate 4.06 mEq Calcium gluconate 4.65 mEq Multivitamins 10 mL Trace Elements 1 mL Additional additives: Folic acid 1 mg, thiamine 100 mg, insulin 15 units Total volume 997 mL to be infused over 24 hrs will provide 1050 kcal/day Labs, as indicated, will be ordered per protocol Pharmacy will continue to follow and adjust parenteral nutrition orders on a daily basis. Thank you for allowing us to participate in the care of this patient.
[2019-03-01 15:40] LABS: Partial Thromboplastin Ratio 2.5
[2019-03-01 15:43] LABS: Partial Thromboplastin Time 67.2 Seconds (21.0-31.0)
[2019-03-01] MEDS ORDERED: CUSTOM CENTRAL PN IV SCH (16:00)
--- NOTE | 2019-03-01 18:12 | Hospitalist Progress Note ---
Date of Service March 01, 2019 Assessment & Plan (1) Mass of colon: had Ileocolic resection with ileocolic anastomosis and umbilical hernia repair, POD 3 colon cancer , at least stage 3, Oncology consulted , per pathology report, the border of excision were negative for cancer cell, however 5 out of 17 lymph nodes sent were positive for cancer cell cont TPN, watch electrolytes Surgical input appreciated . Some PICC line leakage noted. She remains on TPN and a heparin drip. Right upper acute DVT - Continue low-dose heparin drip (2) Lesion of left lung: CT of chest shows a left lower lobe lobulated lesion 11 mm in size concerning for malignancy. Question of primary lesion versus metastasis. No shortness of breath or coughing at this time follow-up for now, because patient has Colon mass, will take care of colon mass and then look into to how to deal with this spot Because of colon cancer stage III, the spot possible from the cancer metastasis (3) Small bowel obstruction: Resolved. She is now on a liquid diet. Further management per general surgery (4) Chronic pain: Morphine 15 mg p.o. twice daily as outpatient. Placed on morphine 4 mg IV every 4 hours as needed. Pain well controlled, (5) Hypothyroid: Continue current med management (6) Mobitz (type) II atrioventricular block: Cardiology consultation appreciated. She will continue with diltiazem dosing which will be switched to oral dosing tomorrow. (7) Anxiety: Medication management PRN (8) CKD (chronic kidney disease) stage 4, GFR 15-29 ml/min: Stable. Monitor urine output. Serial labs. (9) Hypernatremia: Resolved (10) Colon cancer: Oncology consultation noted from February 28. Oncology will discuss with family and patient regarding treatment options. (11) Acute DVT (deep venous thrombosis): Located in right upper extremity.Continue intravenous heparin infusion. 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 Unsure of the indication. Currently on intravenous hydrocortisone every 12 hours. Dispositionto be determined Subjective The patient is complaining of diffuse pain that is not localized but she does appear to be uncomfortable. Multiple entries noted from cardiology, general surgery, pharmacy. She remains on TPN until oral intake is adequate. She does state that she takes prednisone on a daily basis and apparently is steroid- dependent. She is now on intravenous hydrocortisone every 12 hours. Currently postoperative day 4. Troponin is elevated at 0.166 but this probably is due to supply demand mismatch from her rapid atrial fibrillation. Cardizem will be switched From IV dosing to oral dosing per cardiology recommendation.She remains on a heparin drip for her right upper extremity DVT. She still has some Leakage from the PICC line. Review of Systems Review of Systems: All systems reviewed & are unremarkable except as noted in HPI & below Gastrointestinal: Diffuse abdominal discomfort. Bowel sounds are active. Abdomen is slightly distended. No overt rebound or guarding noted Physical Exam Constitutional: + ill appearing and + thin Eyes: PERRL, conjunctivae normal, anicteric sclerae ENMT: external ear and nose normal, oropharynx normal Neck: trachea midline, no thyromegaly Respiratory: normal respiratory effort, lungs clear to auscultation Cardiovascular: Heart Sounds: normal S1 and normal S2 Gastrointestinal (Abdomen): Inspection/Auscultation: normal bowel sounds Percussion/Palpation: + abdomen tender; no guarding, abdomen not rigid and no hepatosplenomegaly Musculoskeletal: Generalized weakness. No edema Neurologic: CN's II-XI intact bilaterally; no focal motor deficits Results & Data Vital Signs (Past 12 Hours) Vital Signs Temp Pulse Pulse Pulse Resp BP Pulse Ox 03/01/19 15:12 37.6 C H 103 H 21 139/72 91 03/01/19 14:20 90 03/01/19 11:24 36.5 C 88 19 129/65 94 03/01/19 07:09 36.8 C 54 L 18 113/80 90 03/01/19 06:20 93 H Laboratory Results 02/28/19 14:18 03/01/19 10:14
[2019-03-01] MEDS ORDERED: PHARMACY GLYCEMIC MGMT CONSULT PRN (18:41)
[2019-03-01] MEDS: INSULIN HUMAN REGULAR SC SCH (20:59)
[2019-03-01] MEDS ORDERED: INSULIN ASPART 100 UNITS/ML 3 ML PEN SC SCH (21:00)
[2019-03-02] MEDS: HYDROmorphone INJ 0.5 MG/0.5 ML SYR IV PRN ×5 (00:13→20:34)
[2019-03-02] MEDS: INSULIN HUMAN REGULAR SC SCH ×5 (00:30→21:23)
[2019-03-02] MEDS ORDERED: INSULIN HUMAN REGULAR SC SCH (05:54)
[2019-03-02 06:34] LABS: Basophils # (auto) 0.03 K/uL (0-0.2); Basophils % (auto) 0.3 %; Hematocrit (blood only) 25.6 % (37-47); Hemoglobin 8.1 g/dL (12.0-16.0); Immature Granulocytes # (auto) 0.26 K/uL (0.00-0.02); Immature Granulocytes % (auto) 2.3 %; Lymphocytes # (auto) 0.46 K/uL (1.2-3.4); Lymphocytes % (auto) 4.1 %; Mean Corpuscular Hgb Conc 31.6 g/dL (32-36); Mean Corpuscular Volume 95.5 fL (80-100); Mean Platelet Volume 10.7 fL (7.4-10.4); Monocytes # (auto) 0.88 K/uL (0.11-0.59); Monocytes % (auto) 7.8 %; Neutrophils # (auto) 9.72 K/uL (1.4-6.5); Neutrophils % (auto) 85.5 %; Nucleated RBC # (auto) 0.03 K/uL (0-0); Nucleated RBC % (auto) 0.2 %; Platelet Count 184 K/uL (130-400); RDW Coefficient of Variation 16.9 % (11.5-14.5); RDW Standard Deviation 58.5 fL (36.4-46.3); Red Blood Count 2.68 M/uL (4.2-5.4); White Blood Count 11.35 K/uL (4.8-10.8)
[2019-03-02 07:00] LABS: Partial Thromboplastin Ratio 1.7
[2019-03-02 07:07] LABS: Partial Thromboplastin Time 45.4 Seconds (21.0-31.0)
[2019-03-02 07:11] LABS: BUN Creatinine Ratio 38.3 (10-20); Calcium 7.7 mg/dl (8.5-10.1); Creatinine Clr Calc Pharmacy 21.9 ml/min; Est GFR (African American) 43.7; Est GFR (Non-African American) 37.7
[2019-03-02 07:14] LABS: Phosphorus 3.8 mg/dl (2.5-4.9)
[2019-03-02] MEDS ORDERED: HEPARIN IV BOLUS 2,000 UNITS in SYRINGE 0 ML IV ONE (08:00)
[2019-03-02] MEDS ORDERED: LANTUS PER UNIT CHARGE SQ ONE (08:00)
[2019-03-02] MEDS: dilTIAZem HCL 180 MG CAPCR PO SCH (08:16)
[2019-03-02] MEDS: Heparin Adult LOW DOSE Wt-Based Dextrose 5% 25,000 units/500 mL IV SCH ×2 (09:44→13:35)
--- NOTE | 2019-03-02 10:07 | Surgery Progress Note ---
Date of Service March 02, 2019 Assessment & Plan (1) Mass of colon: no acute surgical issues per Dr. Urbina keep on full liquids for weekend cont TPN Subjective awake/alert. nad. "hurt all over". no specific complaints. Physical Exam Physical Exam: alert. nad abd: soft. wound looks good. dry/no sign of infection. Results & Data Vital Signs (Past 12 Hours) Vital Signs Temp Pulse Pulse Pulse Resp BP Pulse Ox 03/02/19 08:10 36.4 C L 93 H 20 139/85 97 03/02/19 08:00 94 H 03/02/19 07:05 36.6 C 88 20 154/68 H 95 03/02/19 03:51 36.8 C 100 H 20 166/97 H 95 03/02/19 00:15 36.8 C 88 19 153/74 H 96 03/02/19 00:00 94 H
--- NOTE | 2019-03-02 14:00 | Hospitalist Progress Note ---
Date of Service March 02, 2019 Assessment & Plan (1) Mass of colon: had Ileocolic resection with ileocolic anastomosis and umbilical hernia repair, POD 3 colon cancer , at least stage 3, Oncology consulted , per pathology report, the border of excision were negative for cancer cell, however 5 out of 17 lymph nodes sent were positive for cancer cell cont TPN, watch electrolytes Surgical input appreciated . Some PICC line leakage noted. She remains on TPN and a heparin drip. Right upper acute DVT - Continue low-dose heparin drip (2) Lesion of left lung: CT of chest shows a left lower lobe lobulated lesion 11 mm in size concerning for malignancy. Question of primary lesion versus metastasis. No shortness of breath or coughing at this time follow-up for now, because patient has Colon mass, will take care of colon mass and then look into to how to deal with this spot Because of colon cancer stage III, the spot possible from the cancer metastasis (3) Small bowel obstruction: Resolved. She is now on a regular diet. Further management per general surgery (4) Chronic pain: Morphine 15 mg p.o. twice daily as outpatient. Placed on morphine 4 mg IV every 4 hours as needed. Pain well controlled, (5) Hypothyroid: Continue current med management (6) Mobitz (type) II atrioventricular block: Cardiology consultation appreciated. She will continue with diltiazem (7) Anxiety: Medication management PRN (8) CKD (chronic kidney disease) stage 4, GFR 15-29 ml/min: Stable. Monitor urine output. Serial labs. (9) Hypernatremia: Resolved (10) Colon cancer: Oncology consultation noted from February 28. Oncology will discuss with family and patient regarding treatment options. (11) Acute DVT (deep venous thrombosis): Located in right upper extremity.Continue intravenous heparin infusion. (12) Steroid dependent: She takes prednisone 5 mg daily at home apparently for asthma. This has been restarted today. Intravenous hydrocortisone discontinued. Dispositionto be determined Subjective The patient is alert and feels somewhat better today. She states she feels hungry and a regular diet has been ordered. She is back on her oral prednisone. Physical therapy and Occupational Therapy have been ordered. She remains on a heparin infusion for the right upper extremity DVT. Postoperative day 5 after resection of colon carcinoma and relief of bowel obstruction. Review of Systems Review of Systems: All systems reviewed & are unremarkable except as noted in HPI & below Gastrointestinal: Bowel sounds are active but she does have some diffuse abd ominal discomfort. No rebound or guarding or rigidity. Physical Exam Constitutional: + ill appearing and + thin Eyes: PERRL, conjunctivae normal, anicteric sclerae ENMT: external ear and nose normal, oropharynx normal Neck: trachea midline, no thyromegaly Respiratory: normal respiratory effort, lungs clear to auscultation Cardiovascular: Heart Sounds: normal S1 and normal S2 Gastrointestinal (Abdomen): Inspection/Auscultation: normal bowel sounds Percussion/Palpation: + abdomen tender; no guarding, abdomen not rigid and no hepatosplenomegaly Neurologic: CN's II-XI intact bilaterally; no focal motor deficits Results & Data Vital Signs (Past 12 Hours) Vital Signs Temp Pulse Pulse Pulse Resp BP Pulse Ox 03/02/19 11:35 36.8 C 93 H 20 133/77 97 03/02/19 08:10 36.4 C L 93 H 20 139/85 97 03/02/19 08:00 94 H 03/02/19 07:05 36.6 C 88 20 154/68 H 95 03/02/19 03:51 36.8 C 100 H 20 166/97 H 95 Laboratory Results 03/02/19 06:09 03/02/19 06:09
--- NOTE | 2019-03-02 14:26 | Pharmacy Report ---
Pharmacy Glycemic Short Note 2 - Date of Service March 02, 2019 - Glycemic Short BSG Results (Last 24 hours): 03/01/19 03/01/19 03/02/19 18:09 20:48 00:25 Glucose POC Glucose 283 H 261 H 215 H 03/02/19 03/02/19 03/02/19 05:44 06:09 11:04 Glucose 237 H POC Glucose 302 H* 267 H OUTPATIENT ANTIDIABETIC REGIMEN: * none * A1c unknown - ordered ASSESSMENT: * Marli is a 89 yr old female with no reported history of diabetes. * She has been on TPN since 02/26. BSGs had been trending upwards but remained acceptable until patient developed persistent hyperglycemia 03/01 PM. * Of note, she was started on a full liquid diet and hydrocortisone 50 mg IV q12h on 03/01, which is likely the cause of hyperglycemia. Regular insulin was added to the TPN yesterday (15 units = 0.1 units/g of dextrose) however, BSGs have remained elevated. * Hydrocortisone IV was discontinued prior to the 1200 dose today. Patient will resume home dose of prednisone 5 mg daily tomorrow. * Changes needed to insulin regimen: * Low dose basal insulin was added this morning (this was done prior to hydrocortisone being d/c'ed). * Novolog correction factor tightened and goal range lowered * BSG check will be added for midnight * Continue 15 units of regular insulin in TPN (dextrose amount unchanged and I anticipate improvement since steroids have been cut) * If post prandial hyperglycemia persists, may need to add carb ratio to cover carbs in full liquid diet (will assess this on 03/03 - prefer not to make multiple changes at one time) PLAN FOR INPATIENT GLYCEMIC CONTROL: * Basal insulin * Lantus 10 units SQ x 1 this morning * Further basal dosing to be determined * Bolus insulin * NovoLog per scale ACHS or Q6hrs while NPO * Lower Goal Range: Low 120 mg/dL - High 160 mg/dL * Tighten Correction Factor: 30 mg/dL/unit * 15 units of regular insulin added to TPN to cover 150g dextrose PLAN FOR DISCHARGE: * dependent on A1c result
[2019-03-02 14:53] LABS: Partial Thromboplastin Ratio 2.5
[2019-03-02 15:09] LABS: Partial Thromboplastin Time 66.9 Seconds (21.0-31.0)
[2019-03-02] MEDS ORDERED: CUSTOM CENTRAL PN IV SCH (16:00)
[2019-03-02] MEDS: HYDROCORTISONE SOD 50 MG in SYRINGE 0 ML IV SCH (17:35)
[2019-03-02] MEDS ORDERED: METOPROLOL TARTRATE 1 MG/ML VIAL IV STA (18:58)
[2019-03-02] MEDS ORDERED: METOPROLOL TARTRATE 1 MG/ML VIAL IV ONE (19:00)
[2019-03-02 23:29] LABS: Partial Thromboplastin Ratio 2.6
[2019-03-02 23:33] LABS: Partial Thromboplastin Time 69.2 Seconds (21.0-31.0)
[2019-03-03] MEDS ORDERED: INSULIN HUMAN REGULAR SC SCH
[2019-03-03] MEDS: ACETAMINOPHEN 65 ML IV PRN (03:08)
[2019-03-03] MEDS: HYDROmorphone INJ 0.5 MG/0.5 ML SYR IV PRN ×5 (04:08→23:22)
[2019-03-03 06:58] LABS: Basophils # (auto) 0.01 K/uL (0-0.2); Basophils % (auto) 0.1 %; Eosinophils # (auto) 0.42 K/uL (0-0.5); Eosinophils % (auto) 3.7 %; Hematocrit (blood only) 22.4 % (37-47); Hemoglobin 7.2 g/dL (12.0-16.0); Immature Granulocytes % (auto) 2.7 %; Lymphocytes # (auto) 0.94 K/uL (1.2-3.4); Lymphocytes % (auto) 8.4 %; Mean Corpuscular Hgb Conc 32.1 g/dL (32-36); Mean Corpuscular Volume 95.3 fL (80-100); Mean Platelet Volume 10.9 fL (7.4-10.4); Monocytes % (auto) 14.2 %; Neutrophils # (auto) 7.98 K/uL (1.4-6.5); Neutrophils % (auto) 70.9 %; Nucleated RBC # (auto) 0.07 K/uL (0-0); Nucleated RBC % (auto) 0.6 %; Platelet Count 209 K/uL (130-400); RDW Coefficient of Variation 16.9 % (11.5-14.5); RDW Standard Deviation 57.8 fL (36.4-46.3); Red Blood Count 2.35 M/uL (4.2-5.4); White Blood Count 11.25 K/uL (4.8-10.8)
[2019-03-03 07:15] LABS: Calcium 8.1 mg/dl (8.5-10.1); Creatinine Clr Calc Pharmacy 21.9 ml/min; Est GFR (African American) 44.2; Est GFR (Non-African American) 38.1; Potassium 4.5 mmol/L (3.5-5.1)
[2019-03-03 07:25] LABS: Phosphorus 4.4 mg/dl (2.5-4.9)
[2019-03-03] MEDS: INSULIN HUMAN REGULAR SC SCH ×4 (07:34→20:54)
[2019-03-03 07:46] LABS: Echinocytes 2+; Giant Platelets 1+; Microcytosis Present; Ovalocytes 1+; Toxic Granulation 2+
[2019-03-03 07:55] LABS: Partial Thromboplastin Ratio 0.9; Partial Thromboplastin Time 24.5 Seconds (21.0-31.0)
[2019-03-03] MEDS: dilTIAZem HCL 180 MG CAPCR PO SCH (07:59)
[2019-03-03] MEDS: predniSONE 5 MG TAB PO SCH (07:59)
--- NOTE | 2019-03-03 09:42 | Surgery Progress Note ---
Date of Service March 03, 2019 Assessment & Plan (1) Colon cancer: hg 7. likely multifactoral. no evidence of gross GI blood loss. stool sample sent monitor fever. no evidence of surgical site infection can probably advance diet soon. Dr. Urbina back tomorrow to decide. Subjective pt with no new complaints. yesica diet. passing anamika. Physical Exam Physical Exam: alert. wound looks good. no erythema. small amount of serous drainage. stool sample obtained. brown. no gross blood or melena Results & Data Vital Signs (Past 12 Hours) Vital Signs Temp Pulse Pulse Pulse Resp BP Pulse Ox 03/03/19 08:00 84 03/03/19 06:41 36.6 C 92 H 16 135/70 93 03/03/19 02:50 38.3 C H 82 22 102/52 L 94 03/02/19 23:24 36.7 C 87 20 116/70 96
[2019-03-03] MEDS ORDERED: SODIUM CHLORIDE 0.9% 250 ML IV PRN (09:49)
[2019-03-03] MEDS ORDERED: Nursing to Pharmacy Communication ONE (10:44)
--- NOTE | 2019-03-03 12:33 | Hospitalist Progress Note ---
Date of Service March 03, 2019 Assessment & Plan (1) PAF (paroxysmal atrial fibrillation): Continue telemetry. She is now on oral diltiazem therapy. Cardiology consultation appreciated Present on Admission?: Yes (2) Acute blood loss anemia: Transfuse 1 unit packed red blood cells today. Serial CBC daily Present on Admission?: No (3) GI bleed: Stool is Hemoccult positive but not melenic. She is not a candidate for e ndoscopy at this time. Pepcid has been ordered. Will follow. Present on Admission?: No (4) Mass of colon: had Ileocolic resection with ileocolic anastomosis and umbilical hernia repair, POD 3 colon cancer , at least stage 3, Oncology consulted , per pathology report, the border of excision were negative for cancer cell, however 5 out of 17 lymph nodes sent were positive for cancer cell cont TPN, watch electrolytes Surgical input appreciated . Some PICC line leakage noted. She remains on TPN and a heparin drip. Right upper extremity acute DVT - Continue low-dose heparin drip (5) Lesion of left lung: CT of chest shows a left lower lobe lobulated lesion 11 mm in size concerning for malignancy. Question of primary lesion versus metastasis. No shortness of breath or coughing at this time follow-up for now, because patient has Colon mass, will take care of colon mass and then look into to how to deal with this spot Because of colon cancer stage III, the spot possible from the cancer metastasis (6) Small bowel obstruction: Resolved. She is now tolerating p.o. intake. Further management per general surgery (7) Chronic pain: Morphine 15 mg p.o. twice daily as outpatient. Placed on morphine 4 mg IV every 4 hours as needed. Pain well controlled, (8) Hypothyroid: Continue current med management (9) Mobitz (type) II atrioventricular block: Cardiology consultation appreciated. She will continue with diltiazem (10) Anxiety: Medication management PRN (11) CKD (chronic kidney disease) stage 4, GFR 15-29 ml/min: Stable. Monitor urine output. Serial labs. (12) Hypernatremia: Resolved (13) Colon cancer: Oncology consultation noted from February 28. Oncology will discuss with family and patient regarding treatment options. (14) Acute DVT (deep venous thrombosis): Located in right upper extremity.Continue intravenous heparin infusion. 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 This has been restarted . Intravenous hydrocortisone discontinued. Dispositionto be determined Subjective The patient is alert and continues to complain of "pain all over". Hemoglobin is noted to be declining and is down to 7.2 today. She will receive 1 unit of packed red blood cells. She has given verbal consent. Stool Hemoccult is positive although there is no overt melena. She will remain on low-dose heparin drip for the right upper extremity DVT and we will follow the hemoglobin level. She is not a candidate for endoscopy at this time. Currently postoperative day 6. Case discussed with general surgery. She continues to go in and out of atrial fibrillation and is now on oral Cardizem. Review of Systems Review of Systems: All systems reviewed & are unremarkable except as noted in HPI & below Physical Exam Constitutional: + ill appearing and + thin Eyes: PERRL, conjunctivae normal, anicteric sclerae ENMT: external ear and nose normal, oropharynx normal Neck: trachea midline, no thyromegaly Respiratory: normal respiratory effort, lungs clear to auscultation Cardiovascular: Heart Sounds: normal S1 and normal S2 Irregular heart rhythm Gastrointestinal (Abdomen): Inspection/Auscultation: normal bowel sounds Percussion/Palpation: + abdomen tender; no guarding, abdomen not rigid and no hepatosplenomegaly Neurologic: CN's II-XI intact bilaterally; no focal motor deficits Results & Data Vital Signs (Past 12 Hours) Vital Signs Temp Pulse Pulse Pulse Resp BP Pulse Ox 03/03/19 10:45 36.8 C 81 18 111/53 L 94 03/03/19 08:00 84 03/03/19 06:41 36.6 C 92 H 16 135/70 93 03/03/19 02:50 38.3 C H 82 22 102/52 L 94 Laboratory Results 03/03/19 05:53 03/03/19 05:53
[2019-03-03] MEDS: FAMOTIDINE 20 MG TAB PO SCH ×2 (13:08→20:54)
[2019-03-03] MEDS: Heparin Adult LOW DOSE Wt-Based Dextrose 5% 25,000 units/500 mL IV SCH (14:13)
--- NOTE | 2019-03-03 14:20 | Pharmacy Report ---
Pharmacy Glycemic Short Note 2 - Date of Service March 03, 2019 - Glycemic Short BSG Results (Last 24 hours): 03/02/19 03/02/19 03/02/19 16:23 19:56 23:27 Glucose POC Glucose 184 H 155 H 132 H 03/03/19 03/03/19 03/03/19 05:53 06:43 11:18 Glucose 103 H POC Glucose 125 H 131 H OUTPATIENT ANTIDIABETIC REGIMEN: * none * A1c unknown - ordered ASSESSMENT: 03/03: * Glycemic control significantly improved over the past 24 hours. Last dose of hydrocortisone IV was given 03/01 PM. * She remains on TPN plus full liquid diet with plans for this to continue until patient is reevaluated by Dr. Urbina. She is tolerating full liquids, however overall intake is minimal. * Changes needed to insulin regimen: * hold basal insulin today - I am unsure patient will need basal insulin since IV steroids have been stopped * decrease insulin in TPN to 12 units due to post prandial BSGs trending downward throughout the day 03/02: * Marli is a 89 yr old female with no reported history of diabetes. * She has been on TPN since 02/26. BSGs had been trending upwards but remained acceptable until patient developed persistent hyperglycemia 03/01 PM. * Of note, she was started on a full liquid diet and hydrocortisone 50 mg IV q12h on 03/01, which is likely the cause of hyperglycemia. Regular insulin was added to the TPN yesterday (15 units = 0.1 units/g of dextrose) however, BSGs have remained elevated. * Hydrocortisone IV was discontinued prior to the 1200 dose today. Patient will resume home dose of prednisone 5 mg daily tomorrow. * Changes needed to insulin regimen: * Low dose basal insulin was added this morning (this was done prior to hydrocortisone being d/c'ed). * Novolog correction factor tightened and goal range lowered * BSG check will be added for midnight * Continue 15 units of regular insulin in TPN (dextrose amount unchanged and I anticipate improvement since steroids have been cut) * If post prandial hyperglycemia persists, may need to add carb ratio to cover carbs in full liquid diet (will assess this on 03/03 - prefer not to make multiple changes at one time) PLAN FOR INPATIENT GLYCEMIC CONTROL: * Basal insulin * none ordered for today * Bolus insulin - no change * NovoLog per scale ACHS or Q6hrs while NPO * Goal Range: Low 120 mg/dL - High 160 mg/dL * Correction Factor: 30 mg/dL/unit * 12 units of regular insulin added to TPN to cover 180g dextrose (equivalent to carb ratio of 15) PLAN FOR DISCHARGE: * dependent on A1c result
[2019-03-03] MEDS ORDERED: CUSTOM CENTRAL PN IV SCH (16:00)
[2019-03-03 17:17] LABS: Partial Thromboplastin Ratio 1.3; Partial Thromboplastin Time 34.1 Seconds (21.0-31.0)
[2019-03-03] MEDS ORDERED: HEPARIN IV BOLUS 3,000 UNITS in SYRINGE 0 ML IV ONE (19:00)
[2019-03-04 01:14] LABS: Hematocrit (blood only) 28.4 % (37-47); Hemoglobin 9.6 g/dL (12.0-16.0)
[2019-03-04 01:37] LABS: Partial Thromboplastin Ratio 3.5
[2019-03-04] MEDS: HYDROmorphone INJ 0.5 MG/0.5 ML SYR IV PRN ×4 (02:38→23:37)
[2019-03-04 06:06] LABS: Estimated Average Glucose 126 mg/dl
[2019-03-04 06:10] LABS: Basophils # (auto) 0.03 K/uL (0-0.2); Basophils % (auto) 0.2 %; Eosinophils # (auto) 0.26 K/uL (0-0.5); Eosinophils % (auto) 1.9 %; Hematocrit (blood only) 27.8 % (37-47); Hemoglobin 9.3 g/dL (12.0-16.0); Immature Granulocytes # (auto) 0.58 K/uL (0.00-0.02); Immature Granulocytes % (auto) 4.2 %; Lymphocytes # (auto) 1.12 K/uL (1.2-3.4); Mean Corpuscular Hgb Conc 33.5 g/dL (32-36); Mean Corpuscular Volume 90.6 fL (80-100); Monocytes # (auto) 1.58 K/uL (0.11-0.59); Monocytes % (auto) 11.4 %; Neutrophils # (auto) 10.35 K/uL (1.4-6.5); Neutrophils % (auto) 74.3 %; Nucleated RBC # (auto) 0.11 K/uL (0-0); Nucleated RBC % (auto) 0.8 %; Platelet Count 221 K/uL (130-400); RDW Coefficient of Variation 16.8 % (11.5-14.5); Red Blood Count 3.07 M/uL (4.2-5.4); White Blood Count 13.92 K/uL (4.8-10.8)
--- NOTE | 2019-03-04 06:43 | Progress Note ---
Date of Service March 04, 2019 Assessment & Plan (1) Colon cancer: try low fiber diet, ask pain mgt to see- try to decrease use of Dilaudid- has musculoskel pain, cont Tpn today cont senna syrup, d/c zakiya drain monitor IV Heparin- PTT 95 last pm Subjective pt resting comfortably now restless at night- given Dilaudid for nonspecific back, hip pain min abd pain Physical Exam Physical Exam: vitals stable, no acute chgs Results & Data Vital Signs (Past 12 Hours) Vital Signs Temp Pulse Resp BP Pulse Ox 03/04/19 02:40 36.9 C 112 H 24 138/81 95 03/03/19 23:00 36.6 C 96 H 23 137/67 92 03/03/19 19:32 36.8 C 107 H 16 136/76 95
[2019-03-04 06:46] LABS: BUN Creatinine Ratio 45.5 (10-20); Creatinine Clr Calc Pharmacy 22.5 ml/min; Est GFR (Non-African American) 38.9; Potassium 4.6 mmol/L (3.5-5.1)
[2019-03-04 06:52] LABS: Phosphorus 3.9 mg/dl (2.5-4.9)
[2019-03-04] MEDS: predniSONE 5 MG TAB PO SCH (07:50)
[2019-03-04] MEDS: dilTIAZem HCL 180 MG CAPCR PO SCH (07:50)
[2019-03-04] MEDS: FAMOTIDINE 20 MG TAB PO SCH ×2 (07:51→20:42)
[2019-03-04] MEDS: INSULIN HUMAN REGULAR SC SCH ×4 (07:51→20:19)
[2019-03-04] MEDS: ONDANSETRON INJ 2 MG/ML 2 ML VIAL IV PRN ×2 (08:09→19:09)
--- NOTE | 2019-03-04 08:41 | Cardiology Progress Note ---
Date of Service March 04, 2019 Assessment & Plan (1) Atrial fibrillation with RVR: She had recurrence of atrial fibrillation last week with a rapid heart rate of over 170 bpm on 12-lead electrocardiography. It is paroxysmal, converted to normal rhythm but was present for less than 12 hours although I am not sure exactly the time of onset. She remains on oral diltiazem. I do not know if she has had atrial fibrillation in the past, she is not familiar with it but she may have been on beta-parish for that although I am not sure why that was started historically. She has not had heart block on diltiazem so perhaps oral diltiazem will cause less heart block for her then did beta-blockade. The normal approach would be to implant a pacemaker so that we can control the tachycardia, I mentioned that to her but she is not interested in that approach. We should therefore try to walk the line between rate control and heart block by being careful with AV jailene blocking medications. Anticoagulation would be a good idea if she can tolerate it, she is on heparin but that can be discontinued and she could be started on some other agent at the discretion of the primary service. With her very frequent atrial ectopy and runs of PAT (which likely start A. fib on occasion as that is the normal mechanism of starting atrial fibrillation) it may be prudent to try to suppress some of it. I am going to start low-dose flecainide. That can also cause heart block so we will have to watch for that, although usually does not. We could consider the use of amiodarone but I would like to start with flecainide due to its rapid onset. (2) Mobitz (type) II atrioventricular block: She had AV block (I believe it was 2-1 AV block primarily) while on low- dose carvedilol in the past. Now on diltiazem she did not have heart block. I am hopeful that Cardizem can be used to help control heart rate although it will probably not give good heart rate control unless we go up on the dose but perhaps it will be sufficient in combination with flecainide. (3) CAD (coronary artery disease): She has presumed coronary disease, I believe this was based on a nuclear study in the past. I do not think we need to treat her aggressively for this. I do not think she has ischemia and I think it is safe to use flecainide in the setting. She does not have left ventricular dysfunction. Subjective She is not feeling very well today. She seems to be in a lot of pain, although she cannot tell me exactly where it is. She is not having chest pain, she has no awareness of her atrial arrhythmia or her heart rate. Denies lightheadedness or dizziness. Physical Exam Physical Exam: Constitutional: Alert, cooperative and in no distress. Pulmonary: Clear to auscultation bilaterally. Cardiac: Irregular rhythm with no murmur, gallop or rub. Abdomen: Soft, possibly tender with present bowel sounds. Extremities: No edema. Skin: No rash, ecchymoses or petechiae. Results & Data Vital Signs (Past 12 Hours) Vital Signs Temp Pulse Resp BP Pulse Ox 03/04/19 07:02 37.8 C H 107 H 22 160/70 H 94 03/04/19 02:40 36.9 C 112 H 24 138/81 95 03/03/19 23:00 36.6 C 96 H 23 137/67 92 Diagnostic Findings Telemetry: She continues to have a lot of atrial arrhythmias. This seems much more pronounced than earlier during her admission. Her heart rate has not been terribly fast but does remain above 100 very frequently, sometimes quite fast. No AV block or bradycardia. Mostly PAT but probably some episodes of PAF.
[2019-03-04 09:37] LABS: Partial Thromboplastin Time 28.3 Seconds (21.0-31.0)
[2019-03-04] MEDS: OXYCODONE HCL IR 5 MG TAB (IMMEDIATE RELEASE) PO PRN ×2 (10:13→19:58)
[2019-03-04] MEDS: FLECAINIDE ACETATE 100 MG TABLET PO SCH ×2 (10:14→20:42)
--- NOTE | 2019-03-04 10:44 | Pain Management Consultation ---
Date of Consultation March 04, 2019 Assessment & Plan (1) Diffuse pain: Patient will be initiated on Oxycodone 5mg x 6 hours PRN. Diminish the use of IV Dilaudid and try to use PO Oxycodone instead. Thank you for the consultation. History of Present Illness Reason for Consultation: Diffuse pain Attending Physician: Edilberto Castellanos MD History of Present Illness Mrs. Madison is an 89 year old white female with a significant history of Stage 3 colon cancer, venous stasis of lower extremities, acute on chronic renal failure. Patient underwent a colon resection on 02/25/[address] Urbina. Patient has been utilizing Hydromorphone 0.5mg IV PRN pain. I have asked the patient where her worst pain is she says "it's all over". Pain complaints include right foot, low back, hips, ect. Patient cannot describe the pains or give any history of old vs new pain complaints. Patient is tearful during our entire discussion. Pain is rated 8/10 currently. On an outpatient basis she was on MS IR 15mg. Patient in unsure if the Morphine was effective towards diminishing the pain. She is nauseated. Patient is tearful during our discussion and will not move around in the bed for exam. Case discussed with Dr. Godwin Pain Assessment [facility] Combined Pain Scale: 8-Debilitating - Impairs activity. Can't maintain a conversation. Allergies Allergy/AdvReac Type Severity Reaction Status Date / Time codeine Allergy Unknown CAN'T Verified 02/21/19 02:40 REMEMBER erythromycin base Allergy Unknown CAN'T Verified 02/21/19 02:40 REMEMBER Penicillins Allergy Unknown CAN'T Verified 02/21/19 02:40 REMEMBER Sulfa (Sulfonamide Allergy Unknown CAN'T Verified 02/21/19 02:40 Antibiotics) REMEMBER cefuroxime [From Ceftin] AdvReac Intermediate Diarrhea Verified 02/21/19 02:40 banana AdvReac Mild GI symptoms Verified 02/21/19 02:40 melon AdvReac Verified 02/23/19 13:47 Cantaloupe AdvReac Mild GI Uncoded 02/21/19 02:40 SYMPTOMS FROM UNSPECIFIED MELONS Home Medications Home Medications Medication Instructions Recorded Confirmed Type aspirin 81 mg PO DAILY 11/29/18 02/21/19 History cholecalciferol (vitamin D3) 1,000 unit PO QPM 11/29/18 02/21/19 History [Vitamin D3] levothyroxine 50 mcg PO DAILY 11/29/18 02/21/19 History morphine 15 mg PO BID 11/29/18 02/21/19 History prednisone 5 mg PO DAILY 11/29/18 02/21/19 History promethazine 25 mg PO Q6H PRN 11/29/18 02/21/19 History Patient History Medical History PAF (paroxysmal atrial fibrillation) (Chronic) GI bleed (Acute) Acute blood loss anemia (Acute) Steroid dependent Lesion of left lung (Acute) Mass of colon (Acute) Small bowel obstruction (Acute) Sacral ulcer (Chronic) 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) CAD (coronary artery disease) (Chronic) Mobitz (type) II atrioventricular block (Chronic) Hypertension (Resolved) Asthma (Chronic) Acute kidney injury superimposed on chronic kidney disease (Resolved) Chronic kidney disease (Chronic) Back fracture Elevated troponin Epigastric abdominal pain Ischemic colitis Nausea and vomiting Sepsis due to cellulitis Surgical History H/O: hysterectomy S/P appendectomy S/P cholecystectomy Family History Other No significant family history Social History Preferred Language: Kinyarwanda Communication Ability: Effective Beliefs That Will Affect Care: None marital status: / Current Living Situation: Family Feels Safe at Home: Yes Smoking Status: Never smoker Hx Alcohol Use: No Hx Substance Use: No Physical Exam Physical Exam: GENERAL: 89 year old white female is thin and frail appearing. She is very anxious and tearful during our discussion. HEAD: Normocephalic; atraumatic. EYES: Pupils are round, equal, and reactive to light; EOM intact. ENT: No external ear discharge or lesions. No rhinorrhea or epistaxis. No mucosal lesions. CHEST: Regular chest respiration and excursion. EXTREMITIES: + 3 pitting edema of the feet which are diffusely tender. NEURO: CN II-XII grossly intact with no focal deficits noted. SKIN: No lesions, erythema, or rashes noted. Covered wound on the right heel.
[2019-03-04] MEDS ORDERED: HEPARIN IV BOLUS 3,000 UNITS in SYRINGE 0 ML IV ONE (11:30)
--- NOTE | 2019-03-04 14:32 | Hospitalist Progress Note ---
Date of Service March 04, 2019 Assessment & Plan (1) Adenocarcinoma of colon: Had ileocolic resection with ileocolic anastomosis and umbilical hernia repair on 02/[address] Urbina for adenocarcinoma of the colon, at least stage 3. - Seen by Dr. Hilliard on 02/28 with plan for possible adjuvant chemotherapy if her functional status improves. - Surgical input appreciated - She is on low-fiber diet for her recent surgery. (2) Lesion of left lung: CT chest on 02/21 showed a left lower lobe lobulated lesion 11 mm in size concerning for malignancy. Concern for metastatic disease, which would change her diagnosis from Stage III to Stage IV adenocarcinoma of the colon. - No shortness of breath or coughing at this time - Outpatient follow up (3) Small bowel obstruction: S/p ileocolectomy on 02/25. SBO resolved. - She is now tolerating p.o. intake. - Further management per general surgery (4) Acute blood loss anemia: Hgb ~10-11 at baseline. - Hgb dropped to 7.2 on 03/03; transfused 1 unit PRBCs with bump to 9.6 - Trend hgb (5) GI bleed: Concern for GI bleed on 03/03. Stool was hemoccult positive but not melenic. She is not a candidate for endoscopy at this time. - No further BMs on 03/04 with stable hgb. - Monitor (6) Acute DVT (deep venous thrombosis): Seen on Doppler on 02/28 in right upper extremity. - Continue intravenous heparin infusion (7) PAF (paroxysmal atrial fibrillation): Went into afib with RVR this admission. - Continue diltiazem 180mg PO daily - As of 03/04, rates are ~100 bpm. - On heparin gtt for DVT - Cardiology consultation appreciated (8) Chronic pain: Morphine 15 mg p.o. twice daily as outpatient. - Pain regimen per pain management. (9) Hypothyroid: Continue current med management (10) Mobitz (type) II atrioventricular block: Had temporary AV block while on beta-parish. Not present on calcium channel parish. - Cardiology consultation appreciated. (11) Anxiety: Medication management PRN (12) CKD (chronic kidney disease) stage 4, GFR 15-29 ml/min: Baseline Cr ~ 1.2 with eGFR of ~38. - At baseline as of 03/04. 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 - Was on IV hydrocortisone around time of surgery. - Now back on prednisone PO. Subjective Still in pain, predominantly in the hips and knees. No abdominal pain. No venancio etitie and has nausea. Very tearful. Reports no fevers/chills, chest pain, shortness of breath, abdominal pain, or vomiting. Review of Systems Review of Systems: All systems reviewed & are unremarkable except as noted in HPI & below Physical Exam Constitutional: + ill appearing and + thin Eyes: PERRL, conjunctivae normal, anicteric sclerae ENMT: external ear and nose normal, oropharynx normal Neck: trachea midline, no thyromegaly Respiratory: normal respiratory effort, lungs clear to auscultation Cardiovascular: Heart Sounds: normal S1 and normal S2 Gastrointestinal (Abdomen): normal bowel sounds, soft, nontender, no hepatosplenomegaly Inspection/Auscultation: normal bowel sounds Percussion/Palpation: abdomen nontender, no guarding, abdomen not rigid and no hepatosplenomegaly Neurologic: CN's II-XI intact bilaterally; no focal motor deficits Results & Data Vital Signs (Past 12 Hours) Vital Signs Temp Pulse Pulse Resp BP Pulse Ox 03/04/19 11:06 37.1 C 102 H 20 154/71 H 94 03/04/19 08:00 101 H 03/04/19 07:02 37.8 C H 107 H 22 160/70 H 94 03/04/19 02:40 36.9 C 112 H 24 138/81 95
--- NOTE | 2019-03-04 14:40 | Palliative Care Progress Note ---
Date of Service March 04, 2019 Assessment & Plan (1) Palliative care encounter: Assessment & Plan (1) Goals of care,: -Patient went into afib with rvr -rate now controlled on p.o. diltiazem and flecainide, patient on heparin -Patient with generalized pain-less tearful and more cooperative with PT on exam -Family would like patient to go to [facility]-discussed with patient that she would need to participate and cooperate with therapies in order for insurance to approve this-patient was more cooperative with PT -Attempted to call daughter-left message -Continue current treatment. -PPS 40%. (2) Small bowel obstruction: Due to adenocarcinoma-on TPN (3) Mass of colon: Adenocarcinoma (4) Lesion of left lung: (5) Chronic pain: On PRN IV Dilaudid and as needed p.o. oxycodone (6) CKD (chronic kidney disease) stage 4, GFR 15-29 ml/min: (2) Adenocarcinoma of colon: No chemotherapy planned (3) Diffuse pain: Patient received 1 dose of IV Tylenol yesterday, she received 5 doses of IV Dilaudid for a total of 3 mg and 24 hours-this is equivalent to approximately 40 mg of oxycodone daily She also has PRN oxycodone at 5 mg-she received 1 dose today. Would recommend starting fentanyl patch at 12 mcg-fentanyl is less constipating than the other opioids and given patient's current opioid use she may need dose titration. Would discontinue the IV Dilaudid, can continue p.o. PRN oxycodone (4) Atrial fibrillation with RVR: Rate controlled on diltiazem and flecainide (5) Acute DVT (deep venous thrombosis): On heparin drip Subjective Patient awake and alert, appears comfortable resting in bed. When asked patient will report pain all over-patient still emotional, however not tearful on exam today PT present during my exam-patient was able to cooperate and sit on the side of the bed without any assist Patient reports the swelling her legs is slightly improved. Patient with chronic pain-she has required 3 mg of IV Dilaudid in the past 24 hours which is approximately equivalent to 40 mg of oxycodone, she received 1 dose of IV Dilaudid yesterday, 1 dose of PRN oxycodone. Review of Systems Review of Systems: Patient denies increased shortness of breath, fever, chills, chest pain Reports lower extremity edema is improving Tearfulness improved Physical Exam Physical Exam: PE: Patient appears comfortable at rest HEENT: EOMI, hearing within normal limits Respiratory: Patient on room air, unlabored respirations, no rhonchi CV: Irregular, lower extremity edema slightly improved, continues to have 2-3+ pitting edema Abdomen: Soft, patient tolerating light palpation Extremities: Generalized weakness Neuro: No new focal deficits Psych: Less tearful Results & Data Vital Signs (Past 12 Hours) Vital Signs Temp Pulse Pulse Resp BP Pulse Ox 03/04/19 11:06 98.8 F 102 H 20 154/71 H 94 03/04/19 08:00 101 H 03/04/19 07:02 100.0 F H 107 H 22 160/70 H 94 03/04/19 02:40 98.4 F 112 H 24 138/81 95 Time Spent Attending Total time spent 35 minutes with greater than 50% of the time spent at bedside evaluating patient's current level of comfort as well as encouraging her to participate in therapies.
[2019-03-04 15:18] LABS: Bilirubin,Total 0.5 mg/dl (0.2-1); Prealbumin 10.3 mg/dl (20-40)
[2019-03-04] MEDS ORDERED: CUSTOM CENTRAL PN IV SCH (16:00)
[2019-03-04 16:44] LABS: Partial Thromboplastin Time 82.5 Seconds (21.0-31.0)
[2019-03-04] MEDS: fentaNYL 12 MCG/HR TDSY TD SCH (17:07)
[2019-03-04] MEDS: LORazepam 0.5 MG/1 ML VIAL IV PRN (19:49)
[2019-03-04] MEDS ORDERED: XOPENEX/ATROVENT 0.63mg/0.5MG NEB COMBO NEB PRN (20:07)
[2019-03-04] MEDS ORDERED: IPRATROPIUM BROMIDE NEB SOLN 0.02% 2.5 ML VIAL INH PRN (20:15)
[2019-03-04] MEDS ORDERED: LEVALBUTEROL HCL 0.63 MG/3 ML NEB NEB PRN (20:15)
[2019-03-05] MEDS: CHECK FENTANYL PATCH PLACEMENT SCH ×3 (00:34→16:09)
[2019-03-05 00:40] LABS: Partial Thromboplastin Ratio 1.3; Partial Thromboplastin Time 33.9 Seconds (21.0-31.0)
[2019-03-05] MEDS ORDERED: HEPARIN IV BOLUS 3,000 UNITS in SYRINGE 0 ML IV ONE (01:30)
[2019-03-05] MEDS: OXYCODONE HCL IR 5 MG TAB (IMMEDIATE RELEASE) PO PRN ×2 (01:41→18:17)
[2019-03-05] MEDS: LORazepam 0.5 MG/1 ML VIAL IV PRN ×2 (01:48→20:10)
[2019-03-05] MEDS: ACETAMINOPHEN 65 ML IV PRN ×2 (06:00→17:05)
[2019-03-05 06:18] LABS: Hematocrit (blood only) 26.5 % (37-47); Hemoglobin 8.9 g/dL (12.0-16.0); Mean Corpuscular Hgb Conc 33.6 g/dL (32-36); Mean Corpuscular Volume 91.1 fL (80-100); Mean Platelet Volume 10.9 fL (7.4-10.4); Platelet Count 233 K/uL (130-400); RDW Coefficient of Variation 16.5 % (11.5-14.5); RDW Standard Deviation 53.8 fL (36.4-46.3); Red Blood Count 2.91 M/uL (4.2-5.4); White Blood Count 15.86 K/uL (4.8-10.8)
[2019-03-05 06:53] LABS: BUN Creatinine Ratio 38.1 (10-20); Calcium 7.4 mg/dl (8.5-10.1); Creatinine Clr Calc Pharmacy 21.7 ml/min; Est GFR (African American) 42.5; Est GFR (Non-African American) 36.7; Magnesium 2.1 mg/dl (1.8-2.4); Phosphorus 4.2 mg/dl (2.5-4.9); Potassium 4.3 mmol/L (3.5-5.1)
[2019-03-05 06:57] LABS: Basophils # (auto) 0.04 K/uL (0-0.2); Basophils % (auto) 0.3 %; Echinocytes 1+; Eosinophils # (auto) 0.14 K/uL (0-0.5); Eosinophils % (auto) 0.9 %; Immature Granulocytes # (auto) 0.65 K/uL (0.00-0.02); Immature Granulocytes % (auto) 4.1 %; Lymphocytes # (auto) 0.72 K/uL (1.2-3.4); Lymphocytes % (auto) 4.5 %; Monocytes % (auto) 6.3 %; Neutrophils # (auto) 13.31 K/uL (1.4-6.5); Neutrophils % (auto) 83.9 %; Polychromasia 1+
--- NOTE | 2019-03-05 08:09 | Cardiology Progress Note ---
Date of Service March 05, 2019 Assessment & Plan (1) Atrial fibrillation with RVR: She had recurrence of atrial fibrillation last week with a rapid heart rate of over 170 bpm on 12-lead electrocardiography. It is paroxysmal, converted to normal rhythm but was present for less than 12 hours although I am not sure exactly the time of onset. She remains on oral diltiazem. I do not know if she has had atrial fibrillation in the past, she is not familiar with it but she may have been on beta-parish for that although I am not sure why that was started historically. She has not had heart block on diltiazem so perhaps oral diltiazem will cause less heart block for her then did beta-blockade. The normal approach would be to implant a pacemaker so that we can control the tachycardia, I mentioned that to her but she is not interested in that approach. We should therefore try to walk the line between rate control and heart block by being careful with AV jailene blocking medications. Anticoagulation would be a good idea if she can tolerate it, she is on heparin but that can be discontinued and she could be started on some other agent at the discretion of the primary service. With her very frequent atrial ectopy and runs of PAT (which likely start A. fib on occasion as that is the normal mechanism of starting atrial fibrillation) it may be prudent to try to suppress some of it. Yesterday I started flecainide 50 mg twice a day. So far it seems to be quite effective. Although she still has frequent atrial ectopy is an acceptable response. Flecainide can also cause heart block so we will have to watch for that, although usually does not and so far we see no evidence of that. Additionally her QT interval is not significantly prolonged this morning. We could consider the use of amiodarone but I would like to start with flecainide due to its rapid onset. (2) Mobitz (type) II atrioventricular block: She had AV block (I believe it was 2-1 AV block primarily) while on low- dose carvedilol in the past. Now on diltiazem she did not have heart block. I am hopeful that Cardizem can be used to help control heart rate although it will probably not give good heart rate control unless we go up on the dose but perhaps it will be sufficient in combination with flecainide. (3) CAD (coronary artery disease): She has presumed coronary disease, I believe this was based on a nuclear study in the past. I do not think we need to treat her aggressively for this. I do not think she has ischemia and I think it is safe to use flecainide in the setting. She does not have left ventricular dysfunction. Subjective She looks more comfortable today but continues to be minimally conversational. She says she is in pain but cannot tell me where. Physical Exam Physical Exam: Constitutional: Alert, cooperative and in no distress. Pulmonary: Clear to auscultation bilaterally. Cardiac: Irregular rhythm with no murmur, gallop or rub. Abdomen: Soft, possibly tender with present bowel sounds. Extremities: No edema. Skin: No rash, ecchymoses or petechiae. Results & Data Vital Signs (Past 12 Hours) Vital Signs Temp Pulse Pulse Resp BP BP Pulse Ox 03/05/19 07:40 36.9 C 90 18 102/61 92 03/05/19 05:31 38.1 C H 97 H 18 147/72 H 93 03/04/19 23:35 36.9 C 94 H 18 115/60 92 Diagnostic Findings Telemetry: Although reported to be going in and out of atrial fibrillation I scanned through the last 24 hours and it looks like sinus rhythm with premature beats and brief runs of PAT. It looks considerably better on the trend than before we started flecainide.
[2019-03-05 08:35] LABS: Partial Thromboplastin Ratio 1.9
[2019-03-05 08:36] LABS: Partial Thromboplastin Time 51.3 Seconds (21.0-31.0)
[2019-03-05] MEDS: INSULIN HUMAN REGULAR SC SCH ×4 (08:49→21:31)
[2019-03-05] MEDS: FAMOTIDINE 20 MG TAB PO SCH ×2 (08:51→20:11)
[2019-03-05] MEDS: FLECAINIDE ACETATE 100 MG TABLET PO SCH ×2 (08:51→20:12)
[2019-03-05] MEDS: dilTIAZem HCL 180 MG CAPCR PO SCH (08:51)
[2019-03-05] MEDS: predniSONE 5 MG TAB PO SCH (08:51)
[2019-03-05] MEDS: HYDROmorphone INJ 0.5 MG/0.5 ML SYR IV PRN (12:12)
--- NOTE | 2019-03-05 14:19 | XRay Report ---
XR chest 2V routine HISTORY: Fever COMPARISON: Chest 03/01/2019. FINDINGS: Bilateral PICC terminates within the distal SVC. No pneumothorax. The heart remains enlarge d. There is mild pulmonary vascular congestion without overt edema. Small bilateral pleural effusions and bibasilar densities have slightly progressed. Old, healed right humeral shaft fracture. IMPRESSION: 1. Small bilateral pleural effusions and bibasilar densities slightly progressed. 2. There is mild central pulmonary vascular congestion without overt edema. 3. Satisfactory support line placement. Electronically signed by: Segundo Silveira M.D. 03/05/2019 2:18 PM
--- NOTE | 2019-03-05 14:32 | Palliative Care Progress Note ---
Date of Service March 05, 2019 Assessment & Plan (1) Palliative care encounter: Assessment & Plan (1) Goals of care,: -Patient went into afib with rvr -rate now controlled on p.o. diltiazem and flecainide, patient on heparin -Patient with generalized pain-less tearful, encourage cooperation with PT -Family would like patient to go to group home facility for rehab-discussed with patient that she would need to participate and cooperate with therapies in order for insurance to approve this-patient was more cooperative with PT -We will continue to try to contact daughter regarding goals of care -Continue current treatment. -PPS 40%. (2) Small bowel obstruction: Due to adenocarcinoma-on TPN (3) Mass of colon: Adenocarcinoma (4) Lesion of left lung: (5) Chronic pain: On PRN IV Dilaudid and as needed p.o. oxycodone-fentanyl patch started at 12 mcg-we will discontinue IV Dilaudid, continue p.o. PRN oxycodone (6) CKD (chronic kidney disease) stage 4 (2) Adenocarcinoma of colon: No chemotherapy planned (3) Diffuse pain: Patient received 3 doses of IV Dilaudid and 3 doses of PRN oxycodone-we will try to transition to p.o. meds, monitor for constipation -Started fentanyl 12 mcg patch yesterday at 1700-monitor as needed opioid requirements Would discontinue the IV Dilaudid, can continue p.o. PRN oxycodone (4) Atrial fibrillation with RVR: Rate controlled on diltiazem and flecainide (5) Acute DVT (deep venous thrombosis): On heparin drip Subjective Patient continues to complain of pain all over-patient still very emotional, but less tearful. Encourage patient to cooperate with therapies for evaluation for rehab Patient started on a fentanyl patch yesterday-received 3 doses of PRN IV Dilaudid at 0.5 mg, also received PRN oxycodone x3 at 5 mg. Would continue to try and transition to p.o. medications-would recommend discontinuing her IV Dilaudid. Review of Systems Review of Systems: Patient continues to complain of generalized pain-wherever you touch slightly she reports it hurts. Patient able to move around in bed with assist without any evidence of increased discomfort. Patient denies fever, chills, chest pain, increased shortness of breath, or GI symptoms Physical Exam Physical Exam: PE: In moderate distress-emotional HEENT: EOMI, hearing within normal limits Respiratory: Respirations unlabored at rest, no wheezes CV: Irregular, rate controlled Abdomen: Soft, no increased distention Extremities: Edema all 4 extremities Neuro: Generalized weakness Psych: Emotional distress Results & Data Vital Signs (Past 12 Hours) Vital Signs Temp Pulse Pulse Pulse Resp BP BP 03/05/19 11:47 96.8 F L 83 28 H 166/65 H 03/05/19 07:40 98.4 F 90 18 102/61 03/05/19 06:19 101 H 03/05/19 05:31 100.6 F H 97 H 18 147/72 H Pulse Ox 03/05/19 11:47 96 03/05/19 07:40 92 03/05/19 06:19 03/05/19 05:31 93
--- NOTE | 2019-03-05 14:34 | Pharmacy Report ---
Pharmacy Glycemic Short Note 2 - Date of Service March 05, 2019 - Glycemic Short BSG Results (Last 24 hours): 03/04/19 03/04/19 03/05/19 15:59 19:54 05:12 Glucose 193 H POC Glucose 147 H 150 H 03/05/19 03/05/19 07:38 11:44 Glucose POC Glucose 169 H 168 H OUTPATIENT ANTIDIABETIC REGIMEN: * none * A1c unknown - ordered ASSESSMENT: 03/05 * Patient remains on TPN and po diet (~25% of meals for the most part). Boost BID was added by dietary yesterday. Hoping to have TPN stopped shortly as I do not anticipate po intake to improve much more in setting of pain/cancer. * BSGs have ranged from 147-193 mg/dL in the past 24 hours; requiring only a few units of SSI on top of 12 units in the TPN * Will plan to add just a few more units of insulin to the TPN so that she will not require additional short-acting coverage 03/03: * Glycemic control significantly improved over the past 24 hours. Last dose of hydrocortisone IV was given 03/01 PM. * She remains on TPN plus full liquid diet with plans for this to continue until patient is reevaluated by Dr. Urbina. She is tolerating full liquids, however overall intake is minimal. * Changes needed to insulin regimen: * hold basal insulin today - I am unsure patient will need basal insulin since IV steroids have been stopped * decrease insulin in TPN to 12 units due to post prandial BSGs trending downward throughout the day 03/02: * Marli is a 89 yr old female with no reported history of diabetes. * She has been on TPN since 02/26. BSGs had been trending upwards but remained acceptable until patient developed persistent hyperglycemia 03/01 PM. * Of note, she was started on a full liquid diet and hydrocortisone 50 mg IV q12h on 03/01, which is likely the cause of hyperglycemia. Regular insulin was added to the TPN yesterday (15 units = 0.1 units/g of dextrose) however, BSGs have remained elevated. * Hydrocortisone IV was discontinued prior to the 1200 dose today. Patient will resume home dose of prednisone 5 mg daily tomorrow. * Changes needed to insulin regimen: * Low dose basal insulin was added this morning (this was done prior to hydrocortisone being d/c'ed). * Novolog correction factor tightened and goal range lowered * BSG check will be added for midnight * Continue 15 units of regular insulin in TPN (dextrose amount unchanged and I anticipate improvement since steroids have been cut) * If post prandial hyperglycemia persists, may need to add carb ratio to cover carbs in full liquid diet (will assess this on 03/03 - prefer not to make multiple changes at one time) PLAN FOR INPATIENT GLYCEMIC CONTROL: * Bolus insulin - no change * NovoLog per scale ACHS or Q6hrs while NPO * Goal Range: Low 120 mg/dL - High 160 mg/dL * Correction Factor: 30 mg/dL/unit * Prandial coverage - increase just slightly * 15 units of regular insulin added to TPN to cover 180g dextrose PLAN FOR DISCHARGE: * A1c 6% on 03/03/19 * This is below goal for patient's age/comorbidities. No indication to start anti-diabetic medications.
--- NOTE | 2019-03-05 14:47 | Surgery Progress Note ---
Date of Service March 05, 2019 Assessment & Plan (1) Adenocarcinoma of colon: 03/05/2019 patient advanced to low fiber diet. states that she is not very hungry Continue TPN today- may d/c tomorrow. c/o pain all over- abdominal pain seems to be improved from this weekend. WBC elevated this am- spoke with Dr. Castellanos, he will order chest xray, blood and urine cultures. May consider ct scan of abdomen/pelvis tomorrow. 03/04/2019 try low fiber diet, ask pain mgt to see- try to decrease use of Dilaudid- has musculoskel pain, cont Tpn today cont senna syrup, d/c zakiya drain monitor IV Heparin- PTT 95 last pm Subjective Patient doing ok- still complains of pain "all over" Physical Exam Gastrointestinal (Abdomen): Percussion/Palpation: + abdomen tender (minimally tender. ) and abdomen soft Results & Data Vital Signs (Past 12 Hours) Vital Signs Temp Pulse Pulse Pulse Resp BP BP 03/05/19 11:47 36.0 C L 83 28 H 166/65 H 03/05/19 07:40 36.9 C 90 18 102/61 03/05/19 06:19 101 H 03/05/19 05:31 38.1 C H 97 H 18 147/72 H Pulse Ox 03/05/19 11:47 96 03/05/19 07:40 92 03/05/19 06:19 03/05/19 05:31 93
--- NOTE | 2019-03-05 15:22 | Hospitalist Progress Note ---
Date of Service March 05, 2019 Assessment & Plan (1) Adenocarcinoma of colon: Had ileocolic resection with ileocolic anastomosis and umbilical hernia repair on 02/[address] Urbina for adenocarcinoma of the colon, at least stage 3. - Seen by Dr. Hilliard on 02/28 with plan for possible adjuvant chemotherapy if her functional status improves. - Surgical input appreciated - She is on low-fiber diet for her recent surgery. - Discussed with surgical team today. Will continue TPN and hold off on abdominal imaging at this time. (2) Lesion of left lung: CT chest on 02/21 showed a left lower lobe lobulated lesion 11 mm in size concerning for malignancy. Concern for metastatic disease, which would change her diagnosis from Stage III to Stage IV adenocarcinoma of the colon. - No shortness of breath or coughing at this time - Outpatient follow up (3) Small bowel obstruction: S/p ileocolectomy on 02/25. SBO resolved. - She is now tolerating PO intake. - Further management per general surgery (4) Acute blood loss anemia: Hgb ~10-11 at baseline. - Hgb dropped to 7.2 on 03/03; transfused 1 unit PRBCs with bump to 9.6 - Trend hgb - On 03/05, hgb was 8.9; down mildly from yesterday. (5) GI bleed: Concern for GI bleed on 03/03. Stool was hemoccult positive but not melenic. She is not a candidate for endoscopy at this time. - No further BMs on 03/04 with stable hgb. - Monitor (6) Acute DVT (deep venous thrombosis): Seen on Doppler on 02/28 in right upper extremity. - Continue intravenous heparin infusion (7) PAF (paroxysmal atrial fibrillation): Went into afib with RVR this admission. - Continue diltiazem 180mg PO daily - As of 03/04, rates are ~100 bpm. - Was on heparin gtt for DVT - Cardiology consultation appreciated - On 03/05, plan to switch to novel anticoagulation to avoid further fluids (8) Chronic pain: Morphine 15 mg p.o. twice daily as outpatient. - Pain regimen per palliative care. - As of 03/05, on fentynl patch and PRN oxycodone. (9) Hypothyroid: Continue current med management (10) Mobitz (type) II atrioventricular block: Had temporary AV block while on beta-parish. Not present on calcium channel parish. - Cardiology consultation appreciated. (11) Anxiety: Medication management PRN (12) CKD (chronic kidney disease) stage 4, GFR 15-29 ml/min: Baseline Cr ~ 1.2 with eGFR of ~38. - At baseline as of 03/04. 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 - Was on IV hydrocortisone around time of surgery. - Now back on prednisone PO. Subjective Very tired. Reports pain in her hands and buttocks. Very tearful. Review of Systems Review of Systems: All systems reviewed & are unremarkable except as noted in HPI & below Physical Exam Constitutional: + acute distress, + ill appearing, + thin, + in distress and + lethargic Eyes: PERRL, conjunctivae normal, anicteric sclerae ENMT: external ear and nose normal, oropharynx normal Neck: trachea midline, no thyromegaly Respiratory: normal respiratory effort, lungs clear to auscultation Cardiovascular: Heart Sounds: normal S1 and normal S2 Gastrointestinal (Abdomen): normal bowel sounds, soft, nontender, no hepato splenomegaly Inspection/Auscultation: normal bowel sounds Percussion/Palpation: abdomen nontender, no guarding, abdomen not rigid and no hepatosplenomegaly Neurologic: CN's II-XI intact bilaterally; no focal motor deficits Psychiatric: Affect: + anxious affect and + tearful affect Results & Data Vital Signs (Past 12 Hours) Vital Signs Temp Pulse Pulse Pulse Resp BP BP 03/05/19 11:47 36.0 C L 83 28 H 166/65 H 03/05/19 07:40 36.9 C 90 18 102/61 03/05/19 06:19 101 H 03/05/19 05:31 38.1 C H 97 H 18 147/72 H Pulse Ox 03/05/19 11:47 96 03/05/19 07:40 92 03/05/19 06:19 03/05/19 05:31 93
[2019-03-05] MEDS ORDERED: CUSTOM CENTRAL PN IV SCH (16:00)
[2019-03-05] MEDS: fentaNYL 12 MCG/HR TDSY TD SCH (16:09)
[2019-03-05 16:23] LABS: Appearance Urine Cloudy (Clear); Bacteria Urine Automated 1+ (Negative); Bilirubin Urine Negative (Negative); Blood Urine 1+ (Negative); Color Urine Yellow; Epithelial Cell Urine Auto 0-5 /lpf (0-5); Glucose Urine UA Negative (Negative); Ketones Urine Negative (Negative); Leukocyte Esterase Urine 2+ (Negative); Nitrite Urine Positive (Negative); Protein Urine 1+ (Negative); Specific Gravity Urine 1.017 (1.000-1.030); Urobilinogen Urine Negative (Negative); WBC Urine Automated >30 /hpf (0-5); pH Urine 5.5 (4.5-7.5)
[2019-03-05] MEDS: APIXABAN 2.5 MG TAB PO SCH (20:39)
[2019-03-05] MEDS: Heparin Adult LOW DOSE Wt-Based Dextrose 5% 25,000 units/500 mL IV SCH ×2 (20:44→21:33)
[2019-03-06] MEDS: CHECK FENTANYL PATCH PLACEMENT SCH ×3 (00:36→15:33)
[2019-03-06] MEDS: OXYCODONE HCL IR 5 MG TAB (IMMEDIATE RELEASE) PO PRN ×4 (01:20→21:56)
[2019-03-06 05:56] LABS: Basophils # (auto) 0.02 K/uL (0-0.2); Basophils % (auto) 0.1 %; Eosinophils # (auto) 0.14 K/uL (0-0.5); Hematocrit (blood only) 24.7 % (37-47); Hemoglobin 8.3 g/dL (12.0-16.0); Immature Granulocytes # (auto) 0.37 K/uL (0.00-0.02); Immature Granulocytes % (auto) 2.6 %; Lymphocytes # (auto) 0.54 K/uL (1.2-3.4); Lymphocytes % (auto) 3.8 %; Mean Corpuscular Hgb Conc 33.6 g/dL (32-36); Mean Corpuscular Volume 91.1 fL (80-100); Mean Platelet Volume 10.4 fL (7.4-10.4); Monocytes # (auto) 0.75 K/uL (0.11-0.59); Monocytes % (auto) 5.3 %; Neutrophils # (auto) 12.26 K/uL (1.4-6.5); Neutrophils % (auto) 87.2 %; Platelet Count 242 K/uL (130-400); RDW Coefficient of Variation 16.5 % (11.5-14.5); RDW Standard Deviation 53.6 fL (36.4-46.3); Red Blood Count 2.71 M/uL (4.2-5.4); White Blood Count 14.08 K/uL (4.8-10.8)
[2019-03-06 06:13] LABS: Partial Thromboplastin Ratio 1.2; Partial Thromboplastin Time 32.4 Seconds (21.0-31.0)
[2019-03-06 06:36] LABS: BUN Creatinine Ratio 40.1 (10-20); Calcium 7.8 mg/dl (8.5-10.1); Creatinine Clr Calc Pharmacy 20.6 ml/min; Est GFR (African American) 39.2; Est GFR (Non-African American) 33.8; Potassium 4.3 mmol/L (3.5-5.1)
--- NOTE | 2019-03-06 07:20 | Progress Note ---
Date of Service March 06, 2019 Assessment & Plan (1) Adenocarcinoma of colon: Lt arm edema- ck duplex r/o dvt ck CT abd/pelvis- no oral contrast- won't tolerate. R/o hematoma/ abscess if possible. May need to empirically treat with atbx depending on findings. Cont Tpn until sure she is able to maintain proteins with po Will try to discuss with Dr Castellanos this am. Subjective pain Lt arm- seems to be more swollen no emesis- yesica some po wbc slightly decreased, had fever yest afternoon Physical Exam Physical Exam: awake , mild distress from Lt arm abd- mild distention, decreased bowel sounds Results & Data Vital Signs (Past 12 Hours) Vital Signs Temp Pulse Pulse Resp BP BP Pulse Ox 03/06/19 07:05 36.5 C 89 20 92 03/06/19 04:21 36.9 C 94 H 18 180/78 H 90 03/06/19 01:30 36.6 C 84 18 180/91 H 95 03/05/19 20:41 37.0 C 84 20 106/51 L 92
[2019-03-06] MEDS: INSULIN HUMAN REGULAR SC SCH ×4 (07:37→20:26)
[2019-03-06] MEDS ORDERED: cefTRIAXone SODIUM 1,000 MG in DEXTROSE 5% 50 ML IV SCH (08:00)
[2019-03-06] MEDS ORDERED: IOVERSOL 100ml IV PRN (09:12)
--- NOTE | 2019-03-06 09:19 | Ultrasound Report ---
LEFT UPPER EXTREMITY VENOUS DOPPLER ULTRASOUND CLINICAL HISTORY: r/o dvt COMPARISON STUDY: Left upper extremity venous Doppler May 31, 2018. FINDINGS: A left PICC is in place. The left internal jugular, subclavian, axillary, brachial, basilic , radial and ulnar veins are patent. No venous thrombus is identified within the left upper extremity . IMPRESSION: No deep venous thrombus within the left upper extremity. Electronically signed by: Frank Velez M.D. 03/06/2019 9:18 AM
--- NOTE | 2019-03-06 09:55 | CT Scan Report ---
CT OF THE ABDOMEN AND PELVIS WITH CONTRAST CLINICAL HISTORY: r/o hematoma, abscess- s/p colectomy COMPARISON STUDY: CT of the abdomen and pelvis February 21, 2019. TECHNIQUE: Following IV administration of 94 mL of Optiray-320, axial images of the abdomen and pelvi s were obtained from the lung bases to the proximal femurs. Images were reviewed in the axial, sagitt al, and coronal planes. IV contrast was administered without complication. Automated exposure contro l was utilized for the study. A dose lowering technique was utilized adhering to the principles of A CANDY. CT DOSE: 472.15 mGy.cm FINDINGS: Imaged portions of the lower chest partially visualize a small to moderate right pleural ef fusion and a small left pleural effusion with probable right lower lobe collapse. No pneumatosis is p resent. There is no portal venous gas. There is no biliary ductal dilatation status post cholecystect jaycob. No suspicious hepatic lesions are present. Anasarca is noted with a small amount of ascites with in the abdomen and pelvis. There are calcified granulomas within the spleen. Adrenal glands and kidne ys are unremarkable with exception of a few suspected renal cyst. There is no pancreatic ductal dilat ation. A few cystic pancreatic lesions are noted, the largest of which is a 1.3 cm lesion within the pancreatic. 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 There are postoperati ve findings consistent with an interval ileocecal resection. There is no evidence for residual bowel obstruction. There is prominent soft tissue within the operative bed which may simply represent the a nastomosis or a trace blood products. There is no large hematoma at this site. Postoperative findings consistent with umbilical hernia repair are also noted. Gas within the operative bed is postsurgical . Pockets of fluid without rim enhancement are likely sterile. Note is made of a 4.2 x 1.3 cm fluid a nd gas containing collection within the operative bed, immediately superficial to the abdominal wall musculature. This has minimal peripheral enhancement. Note is also made of a 2.4 x 1.7 cm rim-enhanci ng multiloculated fluid collection within the right lateral abdominal wall musculature. Smaller pocke ts of rim-enhancing fluid are noted. A 3.6 cm left ovarian lesion is indeterminate but has decreased in size from exam of December 11, 2016. L1 burst fracture is unchanged with retropulsion. IMPRESSION: 1. Status post interval ileocecal resection. No bowel obstruction. Prominent soft tissue within the o perative bed may represent the anastomosis or trace blood products. No significant hematoma at this s ite. 2. Interval umbilical hernia repair. Soft tissue gas within the operative bed is expected. 4.2 x 1.3 cm fluid and gas containing collection within the operative bed, superficial to the abdominal wall mu sculature. At most, this has minimal peripheral enhancement and is probably sterile although a develo ping abscess could appear similar. 2.4 x 1.7 cm rim-enhancing fluid collection within the right later al abdominal wall musculature could reflect a small abscess or resolving hematoma. 3. Small to moderate right pleural effusion with right lower lobe atelectasis. Small left pleural eff usion. Anasarca. 4. 3.6 cm cystic left ovarian lesion which is indeterminate but has decreased in size since CT of Dec ruary 2016. Electronically signed by: Frank Velez M.D. 03/06/2019 9:54 AM
[2019-03-06] MEDS: APIXABAN 2.5 MG TAB PO SCH ×2 (10:04→21:56)
[2019-03-06] MEDS: predniSONE 5 MG TAB PO SCH (10:04)
[2019-03-06] MEDS: FLECAINIDE ACETATE 100 MG TABLET PO SCH ×2 (10:04→21:56)
[2019-03-06] MEDS: dilTIAZem HCL 180 MG CAPCR PO SCH (10:05)
[2019-03-06] MEDS: FAMOTIDINE 20 MG TAB PO SCH ×2 (10:05→21:57)
[2019-03-06] MEDS ORDERED: VANCOMYCIN CONSULT ACTIVE PRN (13:40)
[2019-03-06] MEDS ORDERED: PIPERACILL/TAZOBAC CONSULT ACTIVE PRN (13:40)
[2019-03-06] MEDS ORDERED: PIPERACILLIN/TAZOBACTAM 3.375 GM in DEXTROSE 5% 100 ML IV ONE (14:00)
[2019-03-06] MEDS ORDERED: VANCOMYCIN HCL 1,500 MG in SODIUM CHLORIDE 0.9% 500 ML IV ONE (14:00)
--- NOTE | 2019-03-06 14:23 | Hospitalist Progress Note ---
Date of Service March 06, 2019 Assessment & Plan (1) Adenocarcinoma of colon: Had ileocolic resection with ileocolic anastomosis and umbilical hernia repair on 02/[address] Urbina for adenocarcinoma of the colon, at least stage 3. - Seen by Dr. Hilliard on 02/28 with plan for possible adjuvant chemotherapy if her functional status improves. - Surgical input appreciated - She is on low-fiber diet for her recent surgery. - Discussed with surgical team today: - Soft tissue surgical site infection - Started vanc/Zosyn with cultures pending - Hold TPN for now (2) Lesion of left lung: CT chest on 02/21 showed a left lower lobe lobulated lesion 11 mm in size concerning for malignancy. Concern for metastatic disease, which would change her diagnosis from Stage III to Stage IV adenocarcinoma of the colon. - No shortness of breath or coughing at this time - Outpatient follow up (3) Small bowel obstruction: S/p ileocolectomy on 02/25. SBO resolved. - She is now tolerating PO intake. - Further management per general surgery (4) Acute blood loss anemia: Hgb ~10-11 at baseline. - Hgb dropped to 7.2 on 03/03; transfused 1 unit PRBCs with bump to 9.6 - Trend hgb - On 03/06, hgb was 8.3; down mildly from yesterday. (5) GI bleed: Concern for GI bleed on 03/03. Stool was hemoccult positive but not melenic. She is not a candidate for endoscopy at this time. - No further melenic BMs on 03/06 - Monitor (6) Acute DVT (deep venous thrombosis): Seen on Doppler on 02/28 in right upper extremity. - Continue anticoagulation (7) PAF (paroxysmal atrial fibrillation): Went into afib with RVR this admission. - Continue diltiazem 180mg PO daily & flecainide 50mg PO Q12h- As of 03/04, rates are ~90-100 bpm. - Was on heparin gtt for DVT - Cardiology consultation appreciated - On 03/05,switched to novel anticoagulation to avoid further fluids, but will consider going back to heparin if her hgb continues to drop (8) Chronic pain: Morphine 15 mg p.o. twice daily as outpatient. - Pain regimen per palliative care. - As of 03/05, on fentanyl patch and PRN oxycodone. (9) Hypothyroid: TSH was 4.4 in 02/2019. No signs/symptoms of hypo-/hyperthyroidism. - Continue home Synthroid 50 mcg (10) Mobitz (type) II atrioventricular block: Had temporary AV block while on beta-parish. Not present on calcium channel parish. - Cardiology consultation appreciated. (11) Anxiety: Medication management PRN (12) CKD (chronic kidney disease) stage 4, GFR 15-29 ml/min: Baseline Cr ~ 1.2 with eGFR of ~38. - At baseline as of 03/04. 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 - Was on IV hydrocortisone around time of surgery. - Now back on prednisone PO. Subjective Still feeling worse today. Continued pain. Physical Exam Constitutional: + acute distress, + ill appearing, + thin, + in distress and + lethargic Eyes: PERRL, conjunctivae normal, anicteric sclerae ENMT: external ear and nose normal, oropharynx normal Neck: trachea midline, no thyromegaly Respiratory: normal respiratory effort, lungs clear to auscultation Cardiovascular: Heart Sounds: normal S1 and normal S2 Gastrointestinal (Abdomen): normal bowel sounds, soft, nontender, no hepatosplenomegaly Inspection/Auscultation: normal bowel sounds Percussion/Palpation: abdomen nontender, no guarding, abdomen not rigid and no hepatosplenomegaly Neurologic: CN's II-XI intact bilaterally; no focal motor deficits Psychiatric: Affect: + anxious affect and + tearful affect Results & Data Vital Signs (Past 12 Hours) Vital Signs Temp Pulse Pulse Resp BP BP Pulse Ox 03/06/19 12:25 37.1 C 89 18 91 03/06/19 09:45 130/79 03/06/19 07:05 36.5 C 89 20 92 03/06/19 06:22 86 03/06/19 04:21 36.9 C 94 H 18 180/78 H 90
--- NOTE | 2019-03-06 15:14 | Pharmacy Report ---
Pharmacy Abx Initial Consult - Date of Service March 06, 2019 - Pharmacy Dosing Scope Date of Consult: 03/06 Consultation requested by: Dr. Castellanos Pharmacy is consulted to initiate vancomycin and Zosyn IV dosing therapy, order appropriate labs and adjust drug dose/frequency. - Subjective The patient is a 89 year old F admitted on 02/21/19 03:38. - Objective Height: 4 ft 9 in Weight: 60.1 kg Vital Signs (Past 12hrs): Vital Signs Temp Pulse Pulse Resp BP BP Pulse Ox 03/06/19 12:25 37.1 C 89 18 91 03/06/19 09:45 130/79 03/06/19 07:05 36.5 C 89 20 92 03/06/19 06:22 86 03/06/19 04:21 36.9 C 94 H 18 180/78 H 90 Lab Results (24hrs): Laboratory Tests (24 Hours) 03/06/19 03/06/19 05:48 05:48 WBC 14.08 H Neut # (Auto) 12.26 H Creatinine 1.38 H Est Cr Clr Drug Dosing 20.6 Micro Results: 03/06/19 11:30 Gram Stain - Final Abdomen, Right Upper Quadrant Aerobic and Anaerobic Culture - Pending 03/05/19 13:12 Blood Culture - Pending Blood 03/05/19 13:23 Blood Culture - Pending Blood - Risk Factors for Resistance * Current hospitalization > 5 days * Immunocompromised (chronic steroid therapy, chemotherapy, immunomodulators) - Assessment & Plan Assessment 89 year old F admitted 02/21 for colon mass s/p ileocolic resection. She has had a complicated hospital course including long-term PN, chronic pain management and surgery. Now starting on vanc and Zosyn for possible surgical site infection. Plan Vancomycin IV * Estimated PK Parameters: Vd 0.7 L/kg, [place] 0.021 hr-1, t1/2 33 hr * Loading dose: 1500 mg (25 mg/kg) * No maintenance dose ordered in the setting of changing renal function and elderly/lean patient * Will obtain random level @ 1200 tomorrow to determine when we will need to re- dose Piperacillin/tazobactam * 3.375 g bolus administered over 30 minutes, then 3.375 g IV extended infusion every 8 hours for CrCl greater than 20 mL/min (current CrCl borderline but will dose aggressively up front) Pharmacy will continue to follow and will adjust dose/frequency as necessary. Thank you.
--- NOTE | 2019-03-06 17:01 | Cardiology Progress Note ---
Date of Service March 06, 2019 Assessment & Plan (1) Atrial fibrillation with RVR: She had recurrence of atrial fibrillation last week with a rapid heart rate of over 170 bpm on 12-lead electrocardiography. It is paroxysmal, converted to normal rhythm but was present for less than 12 hours although I am not sure exactly the time of onset. She remains on oral diltiazem. I do not know if she has had atrial fibrillation in the past, she is not familiar with it but she may have been on beta-parish for that although I am not sure why that was started historically. She has not had heart block on diltiazem so perhaps oral diltiazem will cause less heart block for her then did beta-blockade. The normal approach would be to implant a pacemaker so that we can control the tachycardia, I mentioned that to her but she is not interested in that approach. We should therefore try to walk the line between rate control and heart block by being careful with AV jailene blocking medications. Anticoagulation would be a good idea if she can tolerate it, she is on heparin but that can be discontinued and she could be started on some other agent at the discretion of the primary service. With her very frequent atrial ectopy and runs of PAT (which likely start A. fib on occasion as that is the normal mechanism of starting atrial fibrillation) it may be prudent to try to suppress some of it. 48 hours ago I started flecainide 50 mg twice a day. So far it seems to be quite effective. Although she still has frequent atrial ectopy she has not had atrial fibrillation that I can see and this is an acceptable response. Flecainide can also cause heart block so we will have to watch for that, although usually does not and so far we see no evidence of that. Additionally her QT interval is not significantly prolonged on it. We could consider the use of amiodarone if needed in the future but I would like to continue flecainide. (2) Mobitz (type) II atrioventricular block: She had AV block (I believe it was 2-1 AV block primarily) while on low- dose carvedilol in the past. Now on diltiazem and flecainide she has not had heart block. I am hopeful that Cardizem can be used to help control heart rate although it will probably not give good heart rate control unless we go up on the dose but perhaps it will be sufficient in combination with flecainide. (3) CAD (coronary artery disease): She has presumed coronary disease, I believe this was based on a nuclear study in the past. I do not think we need to treat her aggressively for this. I do not think she has ischemia and I think it is safe to use flecainide in the setting. She does not have left ventricular dysfunction. Subjective She is still complaining of generalized pain, nothing specific. No cardiovascular complaints and no palpitations. Physical Exam Physical Exam: Constitutional: Alert, cooperative and in no distress. Pulmonary: Clear to auscultation bilaterally. Cardiac: Irregular rhythm with no murmur, gallop or rub. Abdomen: Soft, possibly tender with present bowel sounds. Extremities: No edema. Skin: No rash, ecchymoses or petechiae. Results & Data Vital Signs (Past 12 Hours) Vital Signs Temp Pulse Pulse Resp BP Pulse Ox 03/06/19 15:40 37.2 C 83 18 131/65 93 03/06/19 12:25 37.1 C 89 18 91 03/06/19 09:45 130/79 03/06/19 07:05 36.5 C 89 20 92 03/06/19 06:22 86 Diagnostic Findings Telemetry: Sinus rhythm with frequent premature atrial beats, no obvious atrial fibrillation or runs of PAT in the past 24 hours
[2019-03-06] MEDS: PIPERACILLIN/TAZOBACTAM 3.375 GM in DEXTROSE 5% 100 ML IV SCH (19:30)
[2019-03-07] MEDS: CHECK FENTANYL PATCH PLACEMENT SCH ×4 (00:17→23:32)
[2019-03-07] MEDS: OXYCODONE HCL IR 5 MG TAB (IMMEDIATE RELEASE) PO PRN ×5 (02:06→16:33)
[2019-03-07] MEDS: PIPERACILLIN/TAZOBACTAM 3.375 GM in DEXTROSE 5% 100 ML IV SCH (04:51)
[2019-03-07] MEDS: LEVOTHYROXINE SODIUM 50 MCG TABLET PO SCH (05:49)
[2019-03-07 06:33] LABS: Partial Thromboplastin Ratio 1.2; Partial Thromboplastin Time 33.7 Seconds (21.0-31.0)
[2019-03-07 07:08] LABS: BUN Creatinine Ratio 35.8 (10-20); Calcium 7.7 mg/dl (8.5-10.1); Creatinine Clr Calc Pharmacy 19.6 ml/min; Est GFR (African American) 36.9; Est GFR (Non-African American) 31.8; Magnesium 2.1 mg/dl (1.8-2.4); Phosphorus 3.9 mg/dl (2.5-4.9); Potassium 4.7 mmol/L (3.5-5.1)
[2019-03-07] MEDS: FLECAINIDE ACETATE 100 MG TABLET PO SCH ×2 (07:31→20:12)
[2019-03-07] MEDS: APIXABAN 2.5 MG TAB PO SCH ×2 (07:31→20:12)
[2019-03-07] MEDS: predniSONE 5 MG TAB PO SCH (07:32)
[2019-03-07] MEDS: dilTIAZem HCL 180 MG CAPCR PO SCH (07:32)
[2019-03-07] MEDS: FAMOTIDINE 20 MG TAB PO SCH ×2 (07:33→20:12)
[2019-03-07] MEDS: INSULIN HUMAN REGULAR SC SCH ×4 (08:36→20:18)
[2019-03-07] MEDS: ONDANSETRON INJ 2 MG/ML 2 ML VIAL IV PRN (08:46)
[2019-03-07] MEDS ORDERED: OXYCODONE HCL IR 5 MG TAB (IMMEDIATE RELEASE) PO STA (08:50)
--- NOTE | 2019-03-07 11:55 | Palliative Care Progress Note ---
Date of Service March 07, 2019 Assessment & Plan (1) Goals of care, counseling/discussion: -Patient remains tearful this morning. So tearful that having any sort of meaningful conversation is difficult. -patient c/o pain "everywhere", today it is also specifically in her left hand and sacrum. She declined having me reposition her or help her roll onto her side so I could look at her back side. Patient states her pain is "terrible," but did not give me a number. I will increase her fentanyl patch to 25mcg/hr. -Patient now has soft tissue infection at her surgical site. It is draining a serous fluid and covered with absorbent, padded dressing. May need wound vac. Also has MRSA UTI. Remains on abx. Refusing to work with PT/OT due to pain and just feelings of unwellness. -Attempted to discuss goals of care with patient but she kept stating, "no one should have to go through this," and "just do whatever is going to get me better." She couldn't really elaborate on what "get better" means to her, but she did say many times over that she wanted to go home. She gave me permission to call her daughter Felicia. Called Felicia and left a message. -Will continue to attempt to get in touch with patient's daughter and hopefully come together to discuss goals of care. (2) Small bowel obstruction: (3) Mass of colon: (4) Lesion of left lung: (5) Chronic pain: (6) CKD (chronic kidney disease) stage 4, GFR 15-29 ml/min: Subjective Patient is awake and oriented x4. Tearful, as she usually is. C/o pain "everywhere." Review of Systems Constitutional: + weakness Cardiovascular: + edema; no chest pain Gastrointestinal: + abdominal pain; no nausea and no vomiting Musculoskeletal: + back pain and + body aches Psychiatric: + anxiety Physical Exam Constitutional: + thin and + frail appearing ENMT: external ear and nose normal, oropharynx normal Neck: normal visual inspection Respiratory: normal respiratory effort, lungs clear to auscultation Cardiovascular: Rate/Rhythm: regular rate Extremities: + edema (pedal edema +2-3) Gastrointestinal (Abdomen): Inspection/Auscultation: normal bowel sounds; abdomen not distended Percussion/Palpation: + abdomen tender Neurologic: awake; not confused Psychiatric: Orientation: alert and oriented x 3 Affect: + tearful affect Results & Data Vital Signs (Past 12 Hours) Vital Signs Temp Pulse Resp BP Pulse Ox 03/07/19 07:48 82 03/07/19 07:31 36.4 C L 83 16 111/51 L 96 Supervising Physician Co-Signing Physician Notes Chart reviewed, patient seen and examined-updated on current issues. Collaborated with LION Carr-agree that while patient is here starting a low-dose Zoloft and titrating slowly may be beneficial. PE: Patient resting comfortably Respirations: Unlabored CV: Normal rate Abdomen: Normal bowel sounds Agree with above note, assessment and plan as per LION Carr-will continue to follow and assist patient's daughter with medical decision making Time Spent Midlevel 35 minutes with >50% of time spent at beside with patient discussing condition and GOC.
[2019-03-07] MEDS ORDERED: fentaNYL 25 MCG/HR TDSY TD SCH (12:30)
[2019-03-07] MEDS ORDERED: DAPTOMYCIN CONSULT ACTIVE PRN (14:18)
[2019-03-07] MEDS ORDERED: PIPERACILLIN/TAZOBACTAM 3.375 GM in DEXTROSE 5% 100 ML IV SCH (16:00)
[2019-03-07] MEDS: DAPTOmycin 275 MG in SYRINGE 0 ML IV SCH (16:19)
--- NOTE | 2019-03-07 17:56 | Hospitalist Progress Note ---
Date of Service March 07, 2019 Assessment & Plan (1) Adenocarcinoma of colon: Had ileocolic resection with ileocolic anastomosis and umbilical hernia repair on 02/[address] Urbina for adenocarcinoma of the colon, at least stage 3. - Seen by Dr. Hilliard on 02/28 with plan for possible adjuvant chemotherapy if her functional status improves. - Surgical input appreciated - She is on low-fiber diet for her recent surgery. - Discussed with surgical team today: - Soft tissue surgical site infection - Started vanc/Zosyn with cultures pending - Hold TPN for now - On 03/07, switched to dapto for renal-protection. Stop Zosyn for culture results showing Staph. MRSA also growing from urine culture from 03/05. (2) Lesion of left lung: CT chest on 02/21 showed a left lower lobe lobulated lesion 11 mm in size concerning for malignancy. Concern for metastatic disease, which would change her diagnosis from Stage III to Stage IV adenocarcinoma of the colon. - No shortness of breath or coughing at this time - Outpatient follow up (3) Small bowel obstruction: S/p ileocolectomy on 02/25. SBO resolved. - She is now tolerating PO intake. - Further management per general surgery (4) Acute blood loss anemia: Hgb ~10-11 at baseline. - Hgb dropped to 7.2 on 03/03; transfused 1 unit PRBCs with bump to 9.6. - Trend hgb - On 03/06, hgb was 8.3; down mildly from yesterday. (5) GI bleed: Concern for GI bleed on 03/03. Stool was hemoccult positive but not melenic. She is not a candidate for endoscopy at this time. - No further melenic BMs on 03/07 - Monitor (6) Acute DVT (deep venous thrombosis): Seen on Doppler on 02/28 in right upper extremity. - Continue anticoagulation (7) PAF (paroxysmal atrial fibrillation): Went into afib with RVR this admission. - Continue diltiazem 180mg PO daily & flecainide 50mg PO Q12h- As of 03/04, rates are ~90-100 bpm. - Was on heparin gtt for DVT - Cardiology consultation appreciated - On 03/05,switched to novel anticoagulation to avoid further fluids, but will consider going back to heparin if her hgb continues to drop (8) Chronic pain: Morphine 15 mg p.o. twice daily as outpatient. - Pain regimen per palliative care. - As of 03/05, on fentanyl patch and PRN oxycodone. (9) Hypothyroid: TSH was 4.4 in 02/2019. No signs/symptoms of hypo-/hyperthyroidism. - Continue home Synthroid 50 mcg (10) Mobitz (type) II atrioventricular block: Had temporary AV block while on beta-parish. Not present on calcium channel parish. - Cardiology consultation appreciated. (11) Anxiety: Medication management PRN (12) CKD (chronic kidney disease) stage 4, GFR 15-29 ml/min: Baseline Cr ~ 1.2 with eGFR of ~38. - At baseline as of 03/07. 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 - Was on IV hydrocortisone around time of surgery. - Now back on prednisone PO. Subjective Somewhat happy while talking about her cat, but then very sad about pain. Pain all over. Reports no fevers/chills, chest pain, shortness of breath, abdominal pain, nausea, or vomiting. Review of Systems Review of Systems: All systems reviewed & are unremarkable except as noted in HPI & below Physical Exam Constitutional: + acute distress, + ill appearing, + thin, + in distress and + lethargic Eyes: PERRL, conjunctivae normal, anicteric sclerae ENMT: external ear and nose normal, oropharynx normal Neck: trachea midline, no thyromegaly Respiratory: normal respiratory effort, lungs clear to auscultation Cardiovascular: Heart Sounds: normal S1 and normal S2 Gastrointestinal (Abdomen): normal bowel sounds, soft, nontender, no hepatosplenomegaly Inspection/Auscultation: normal bowel sounds Percussion/Palpation: abdomen nontender, no guarding, abdomen not rigid and no hepatosplenomegaly Neurologic: CN's II-XI intact bilaterally; no focal motor deficits Psychiatric: Affect: + anxious affect and + tearful affect Results & Data Vital Signs (Past 12 Hours) Vital Signs Temp Pulse Resp BP BP Pulse Ox 03/07/19 15:15 36.5 C 83 20 128/59 L 95 03/07/19 07:48 82 03/07/19 07:31 36.4 C L 83 16 111/51 L 96
[2019-03-07] MEDS: LORazepam 0.5 MG/1 ML VIAL IV PRN (17:57)
[2019-03-08] MEDS: OXYCODONE HCL IR 5 MG TAB (IMMEDIATE RELEASE) PO PRN ×4 (05:00→19:23)
[2019-03-08 05:55] LABS: Hematocrit (blood only) 21.2 % (37-47); Mean Corpuscular Volume 92.2 fL (80-100); Mean Platelet Volume 10.1 fL (7.4-10.4); Platelet Count 306 K/uL (130-400); RDW Coefficient of Variation 16.2 % (11.5-14.5); RDW Standard Deviation 53.8 fL (36.4-46.3); White Blood Count 10.35 K/uL (4.8-10.8)
[2019-03-08] MEDS: LEVOTHYROXINE SODIUM 50 MCG TABLET PO SCH (06:06)
[2019-03-08 06:33] LABS: BUN Creatinine Ratio 32.8 (10-20); Calcium 7.6 mg/dl (8.5-10.1); Creatinine Clr Calc Pharmacy 17.8 ml/min; Est GFR (African American) 32.8; Est GFR (Non-African American) 28.3; Potassium 4.6 mmol/L (3.5-5.1)
[2019-03-08 06:35] LABS: Magnesium 2.1 mg/dl (1.8-2.4)
--- NOTE | 2019-03-08 06:40 | Progress Note ---
Date of Service March 08, 2019 Assessment & Plan (1) Adenocarcinoma of colon: cont diet as tolerated- not significantly distended cont senna syrup, try some min oil in juice or other cont wound care Subjective afeb, no acute chgs HR under control Physical Exam Physical Exam: in no distress- has active bowel sounds Results & Data Vital Signs (Past 12 Hours) Vital Signs Temp Pulse Resp BP Pulse Ox 03/07/19 23:11 36.8 C 88 19 123/60 94
[2019-03-08] MEDS ORDERED: MINERAL OIL 30 ML UDC PO ONE (06:41)
[2019-03-08] MEDS: dilTIAZem HCL 180 MG CAPCR PO SCH (08:57)
[2019-03-08] MEDS: predniSONE 5 MG TAB PO SCH (08:58)
[2019-03-08] MEDS: FAMOTIDINE 20 MG TAB PO SCH ×2 (08:58→19:25)
[2019-03-08] MEDS: ONDANSETRON INJ 2 MG/ML 2 ML VIAL IV PRN (08:58)
[2019-03-08] MEDS: FLECAINIDE ACETATE 100 MG TABLET PO SCH ×2 (08:58→19:23)
[2019-03-08] MEDS: APIXABAN 2.5 MG TAB PO SCH ×2 (08:58→19:25)
[2019-03-08] MEDS: CHECK FENTANYL PATCH PLACEMENT SCH ×2 (09:06→16:15)
[2019-03-08] MEDS: INSULIN HUMAN REGULAR SC SCH ×4 (09:10→19:57)
--- NOTE | 2019-03-08 14:14 | Pharmacy Report ---
Pharmacy Glycemic Short Note 2 - Date of Service March 08, 2019 - Glycemic Short BSG Results (Last 24 hours): 03/07/19 03/07/19 03/08/19 16:44 19:57 05:22 Glucose 94 POC Glucose 171 H 220 H 03/08/19 03/08/19 07:49 11:42 Glucose POC Glucose 166 H 142 H OUTPATIENT ANTIDIABETIC REGIMEN: * none * A1c = 6% on 03/03/19 ASSESSMENT: Patient continues to have poor oral intake and this is not expected to change. TPN was put on hold yesterday since this will not improve her outcome and she currently has MRSA wound infection and UTI. She has been on Novolog with a correction factor of 30 and no carb coverage since her food intake is minimal and varied. Her BSGs have been either at goal or close to it with only 2 high values of 220 in the last 2 days. Therefore will continue current Novolog parameters. PLAN FOR INPATIENT GLYCEMIC CONTROL: * Bolus insulin - no change * NovoLog per scale ACHS or Q6hrs while NPO * Goal Range: Low 120 mg/dL - High 160 mg/dL * Correction Factor: 30 mg/dL/unit PLAN FOR DISCHARGE: * A1c 6% on 03/03/19 * This is below goal for patient's age/comorbidities. No indication to start anti-diabetic medications.
[2019-03-08] MEDS ORDERED: NORMOSOL-R 500 ML IV ONE (15:39)
--- NOTE | 2019-03-08 15:39 | Hospitalist Progress Note ---
Date of Service March 08, 2019 Assessment & Plan (1) Adenocarcinoma of colon: Had ileocolic resection with ileocolic anastomosis and umbilical hernia repair on 02/[address] Urbina for adenocarcinoma of the colon, at least stage 3. - Seen by Dr. Hilliard on 02/28 with plan for possible adjuvant chemotherapy if her functional status improves. - Surgical input appreciated - She is on low-fiber diet for her recent surgery. - Discussed with surgical team today: - Soft tissue surgical site infection - Started vanc/Zosyn with cultures pending - Hold TPN for now - On 03/07, switched to dapto for renal-protection. Stopped Zosyn for culture results showing Staph. MRSA also growing from urine culture from 03/05. (2) Lesion of left lung: CT chest on 02/21 showed a left lower lobe lobulated lesion 11 mm in size concerning for malignancy. Concern for metastatic disease, which would change her diagnosis from Stage III to Stage IV adenocarcinoma of the colon. - No shortness of breath or coughing at this time - Outpatient follow up (3) CKD (chronic kidney disease) stage 4, GFR 15-29 ml/min: Baseline Cr ~ 1.2 with eGFR of ~38. - Increasing on 03/08 to 1.6; will give fluid bolus - Monitor Cr (4) Acute blood loss anemia: Hgb ~10-11 at baseline. - Hgb dropped to 7.2 on 03/03; transfused 1 unit PRBCs with bump to 9.6. - Trend hgb - On 03/08, hgb was 7.0; down from 03/06. (5) GI bleed: Concern for GI bleed on 03/03. Stool was hemoccult positive but not melenic. She is not a candidate for endoscopy at this time. - No further melenic BMs on 03/07 - Monitor (6) Small bowel obstruction: S/p ileocolectomy on 02/25. SBO resolved. - She is now tolerating PO intake. - Further management per general surgery (7) Acute DVT (deep venous thrombosis): Seen on Doppler on 02/28 in right upper extremity. - Continue anticoagulation (8) PAF (paroxysmal atrial fibrillation): Went into afib with RVR this admission. - Continue diltiazem 180mg PO daily & flecainide 50mg PO Q12h- As of 04/29, rates are ~90-100 bpm. - Was on heparin gtt for DVT - Cardiology consultation appreciated - On 03/05,switched to novel anticoagulation to avoid further fluids, but will consider going back to heparin if her hgb continues to drop (9) Chronic pain: Morphine 15 mg p.o. twice daily as outpatient. - Pain regimen per palliative care. - As of 03/05, on fentanyl patch and PRN oxycodone. (10) Hypothyroid: TSH was 4.4 in 02/2019. No signs/symptoms of hypo-/hyperthyroidism. - Continue home Synthroid 50 mcg (11) Mobitz (type) II atrioventricular block: Had temporary AV block while on beta-parish. Not present on calcium channel parish. - Cardiology consultation appreciated. 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 - Was on IV hydrocortisone around time of surgery. - Now back on prednisone PO. Subjective No change in mental status. Reports pain all over. Cannot really given any meaningful review of symptoms due to agitation and anxiety. Review of Systems Review of Systems: Unobtainable due to mental health condition Physical Exam Constitutional: + acute distress, + ill appearing, + thin, + in distress and + lethargic Eyes: PERRL, conjunctivae normal, anicteric sclerae ENMT: external ear and nose normal, oropharynx normal Neck: trachea midline, no thyromegaly Respiratory: normal respiratory effort, lungs clear to auscultation Cardiovascular: Heart Sounds: normal S1 and normal S2 Gastrointestinal (Abdomen): normal bowel sounds, soft, nontender, no hepatosplenomegaly Inspection/Auscultation: normal bowel sounds; + abdomen abnormal to inspection (Dressing over midline incision) Percussion/Palpation: abdomen nontender, no guarding, abdomen not rigid and no hepatosplenomegaly Neurologic: CN's II-XI intact bilaterally; no focal motor deficits Psychiatric: Affect: + anxious affect and + tearful affect Results & Data Vital Signs (Past 12 Hours) Vital Signs Temp Pulse Resp BP Pulse Ox 03/08/19 07:30 37.3 C 97 H 18 109/46 L 91
[2019-03-08] MEDS: LORazepam 0.5 MG/1 ML VIAL IV PRN (20:03)
[2019-03-09] MEDS: CHECK FENTANYL PATCH PLACEMENT SCH ×6 (00:14→23:59)
[2019-03-09 06:39] LABS: Hematocrit (blood only) 21.6 % (37-47); Hemoglobin 7.1 g/dL (12.0-16.0); Mean Corpuscular Hgb Conc 32.9 g/dL (32-36); Mean Corpuscular Volume 92.7 fL (80-100); Mean Platelet Volume 9.9 fL (7.4-10.4); Platelet Count 357 K/uL (130-400); Red Blood Count 2.33 M/uL (4.2-5.4); White Blood Count 9.64 K/uL (4.8-10.8)
[2019-03-09] MEDS: LEVOTHYROXINE SODIUM 50 MCG TABLET PO SCH (06:46)
[2019-03-09] MEDS: OXYCODONE HCL IR 5 MG TAB (IMMEDIATE RELEASE) PO PRN ×3 (06:46→18:24)
[2019-03-09 07:20] LABS: Albumin Level 1.5 gm/dl (3.4-5.0); BUN Creatinine Ratio 29.1 (10-20); Calcium 7.8 mg/dl (8.5-10.1); Est GFR (African American) 30.5; Est GFR (Non-African American) 26.3; Magnesium 2.3 mg/dl (1.8-2.4); Potassium 4.5 mmol/L (3.5-5.1)
[2019-03-09 07:23] LABS: Albumin Globulin Ratio 0.4 (0.9-2); Bilirubin,Total 0.5 mg/dl (0.2-1); Globulin 3.7 gm/dl (2.5-4.0); Total Protein 5.2 gm/dl (6.4-8.2)
[2019-03-09] MEDS: INSULIN HUMAN REGULAR SC SCH ×4 (08:55→21:01)
[2019-03-09] MEDS: LORazepam 0.5 MG/1 ML VIAL IV PRN (09:01)
[2019-03-09] MEDS: dilTIAZem HCL 180 MG CAPCR PO SCH (09:08)
[2019-03-09] MEDS: predniSONE 5 MG TAB PO SCH (09:09)
[2019-03-09] MEDS: APIXABAN 2.5 MG TAB PO SCH ×2 (09:09→20:58)
[2019-03-09] MEDS: FAMOTIDINE 20 MG TAB PO SCH ×2 (09:09→21:00)
[2019-03-09] MEDS: FLECAINIDE ACETATE 100 MG TABLET PO SCH ×2 (09:10→20:59)
--- NOTE | 2019-03-09 09:44 | Surgery Progress Note ---
Date of Service March 09, 2019 Assessment & Plan (1) Adenocarcinoma of colon: POD#12 from right colectomy by Dr. Urbina. Tolerating low fiber diet. Wound infection requiring opening of wound - now improved on vanco (MRSA) and dressing changes. Abdominal exam is stable. No new recommendations. Subjective Pt was complaining of severe pain with movement - in her left hand, foot, back. No abdominal pain. On low fiber diet. Bowels functioning. Just received ativan and is now very sleepy. Review of Systems Review of Systems: Unobtainable due to mental health condition Physical Exam Constitutional: frail elderly woman, hurts when she move her Gastrointestinal (Abdomen): Inspection/Auscultation: normal bowel sounds; abdomen not distended Percussion/Palpation: abdomen soft dressing changed, wound is clean with no further sign of infection. Repacked. Neurologic: arousable but sleepy Results & Data Vital Signs (Past 12 Hours) Vital Signs Temp Pulse Resp BP Pulse Ox 03/09/19 07:34 36.8 C 87 16 120/57 L 86 L 03/08/19 23:44 36.7 C 83 22 166/49 H 93
--- NOTE | 2019-03-09 10:29 | Pharmacy Report ---
Pharmacy Glycemic Short Note 2 - Date of Service March 09, 2019 - Glycemic Short BSG Results (Last 24 hours): 03/08/19 03/08/19 03/08/19 11:42 16:20 19:53 Glucose POC Glucose 142 H 145 H 246 H 03/09/19 03/09/19 05:33 07:48 Glucose 90 POC Glucose 142 H OUTPATIENT ANTIDIABETIC REGIMEN: * none * A1c = 6% on 03/03/19 (indicates pre-diabetes) ASSESSMENT: * 89yo pre-diabetic with hyperglycemia secondary to daily/chronic low dose prednisone, infection, stress, etc. 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 Likely not needed with low A1c * Post-prandial BSGs are elevated. Pt is not ordered a CR. Will add conservative CR and titrate based on BSG trends. PLAN FOR INPATIENT GLYCEMIC CONTROL: * No basal insulin needed * Bolus insulin - add CR * using regular insulin per scale ACHS or Q6hrs while NPO- may need to change to NovoLog if stacking occurs * Goal Range: Low 120 mg/dL - High 140 mg/dL * Correction Factor: 30 mg/dL/unit * nutritional/prandial insulin per carb ratio of: 1 unit for every 12g CHO consumed PLAN FOR DISCHARGE: * A1c 6% on 03/03/19 * This is below goal for patient's age/comorbidities. No indication to start anti-diabetic medications.
[2019-03-09] MEDS ORDERED: NORMOSOL-R 1,000 ML IV SCH (11:00)
[2019-03-09] MEDS: DAPTOmycin 275 MG in SYRINGE 0 ML IV SCH (13:56)
--- NOTE | 2019-03-09 14:00 | Hospitalist Progress Note ---
Date of Service March 09, 2019 Assessment & Plan (1) Adenocarcinoma of colon: Had ileocolic resection with ileocolic anastomosis and umbilical hernia repair on 02/[address] Urbina for adenocarcinoma of the colon, at least stage 3. - Seen by Dr. Hilliard on 02/28 with plan for possible adjuvant chemotherapy if her functional status improves. - Surgical input appreciated - She is on low-fiber diet for her recent surgery. - Discussed with surgical team on 03/06: - Soft tissue surgical site infection - Started vanc/Zosyn with cultures pending - On 03/07, switched to dapto for renal-protection. Stopped Zosyn for culture results showing Staph. MRSA also growing from urine culture from 03/05. - By 03/09, her WBC count had normalized, no fever in >48 hours, HR normalized. Tentative 7-day course (could prolong if continues purulence or any additional fever) (End date: 02/10) - Wound care per wound RN (2) Lesion of left lung: CT chest on 02/21 showed a left lower lobe lobulated lesion 11 mm in size concerning for malignancy. Concern for metastatic disease, which would change her diagnosis from Stage III to Stage IV adenocarcinoma of the colon. - No shortness of breath or coughing at this time - Outpatient follow up (3) CKD (chronic kidney disease) stage 4, GFR 15-29 ml/min: Baseline Cr ~ 1.2 with eGFR of ~38. - Increasing on 03/08 & 03/09 - Gave a 500mL bolus, then 1L bolus - Will get FeNa, urine eosinophils - Monitor Cr (4) Acute blood loss anemia: Hgb ~10-11 at baseline. - Hgb dropped to 7.2 on 03/03; transfused 1 unit PRBCs with bump to 9.6. - Trend hgb - On 03/09, hgb was 7.1; stable from 03/08. (5) GI bleed: Concern for GI bleed on 03/03. Stool was hemoccult positive but not grossly melenic. She is not a candidate for endoscopy at this time. - No further melenic BMs on 03/09 - Monitor (6) Small bowel obstruction: S/p ileocolectomy on 02/25. SBO resolved. - She is now tolerating PO intake. - Further management per general surgery (7) Acute DVT (deep venous thrombosis): Seen on Doppler on 02/28 in right upper extremity. - Continue anticoagulation (8) PAF (paroxysmal atrial fibrillation): Went into afib with RVR this admission. - Continue diltiazem 180mg PO daily & flecainide 50mg PO Q12h - As of 03/09, rates are 80-90 bpm. - Was on heparin gtt for DVT - Cardiology consultation appreciated - On 03/05,switched to novel anticoagulation to avoid further fluids, but will consider going back to heparin if her hgb continues to drop (9) Chronic pain: Morphine 15 mg p.o. twice daily as outpatient. - Pain regimen per palliative care. - As of 03/05, on fentanyl patch and PRN oxycodone. - Long discussion with daughter who reports she has a very tearful aspect at baseline. - Adjusting pain meds gently as she is currently either sleeping or crying in pain. (10) Hypothyroid: TSH was 4.4 in 02/2019. No signs/symptoms of hypo-/hyperthyroidism. - Continue home Synthroid 50 mcg (11) Mobitz (type) II atrioventricular block: Had temporary AV block while on beta-parish. Not present on calcium channel parish. - Cardiology consultation appreciated. 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 - Was on IV hydrocortisone around time of surgery. - Now back on prednisone PO. Subjective Sleeping quietly, but when awoken, she reports severe pain mostly in her legs bilaterally. Very tearful again today. Review of Systems Review of Systems: Unobtainable due to cognitive status Physical Exam Constitutional: + acute distress, + ill appearing, + thin, + in distress and + lethargic Eyes: PERRL, conjunctivae normal, anicteric sclerae ENMT: external ear and nose normal, oropharynx normal Neck: trachea midline, no thyromegaly Respiratory: normal respiratory effort, lungs clear to auscultation Cardiovascular: Heart Sounds: normal S1 and normal S2 Gastrointestinal (Abdomen): normal bowel sounds, soft, nontender, no hepatosplenomegaly Inspection/Auscultation: normal bowel sounds; + abdomen abnormal to inspection (Dressing over midline incision) Percussion/Palpation: abdomen nontender, no guarding, abdomen not rigid and no hepatosplenomegaly Neurologic: CN's II-XI intact bilaterally; no focal motor deficits Psychiatric: Affect: + anxious affect and + tearful affect Results & Data Vital Signs (Past 12 Hours) Vital Signs Temp Pulse Pulse Resp BP BP Pulse Ox 03/09/19 11:48 36.9 C 88 18 120/82 92 03/09/19 07:34 36.8 C 87 16 120/57 L 86 L
[2019-03-09] MEDS: fentaNYL 25 MCG/HR TDSY TD SCH (15:20)
[2019-03-09] MEDS: fentaNYL 12 MCG/HR TDSY TD SCH (15:20)
[2019-03-09 17:17] LABS: Creatinine Urine Random 51.3 mg/dl
[2019-03-10] MEDS: OXYCODONE HCL IR 5 MG TAB (IMMEDIATE RELEASE) PO PRN ×3 (05:49→14:21)
[2019-03-10] MEDS: LEVOTHYROXINE SODIUM 50 MCG TABLET PO SCH (05:49)
[2019-03-10 06:13] LABS: Hematocrit (blood only) 21.6 % (37-47); Hemoglobin 7.2 g/dL (12.0-16.0); Mean Corpuscular Hgb Conc 33.3 g/dL (32-36); Mean Corpuscular Volume 92.7 fL (80-100); Mean Platelet Volume 9.8 fL (7.4-10.4); Platelet Count 387 K/uL (130-400); RDW Coefficient of Variation 15.8 % (11.5-14.5); RDW Standard Deviation 52.8 fL (36.4-46.3); Red Blood Count 2.33 M/uL (4.2-5.4); White Blood Count 7.62 K/uL (4.8-10.8)
[2019-03-10 06:51] LABS: Albumin Level 1.4 gm/dl (3.4-5.0); BUN Creatinine Ratio 27.5 (10-20); Creatinine Clr Calc Pharmacy 16.6 ml/min; Est GFR (Non-African American) 25.9; Magnesium 2.4 mg/dl (1.8-2.4); Potassium 4.6 mmol/L (3.5-5.1)
[2019-03-10 06:54] LABS: Albumin Globulin Ratio 0.4 (0.9-2); Bilirubin,Total 0.4 mg/dl (0.2-1); Globulin 3.6 gm/dl (2.5-4.0)
[2019-03-10] MEDS: APIXABAN 2.5 MG TAB PO SCH ×2 (08:28→21:03)
[2019-03-10] MEDS: dilTIAZem HCL 180 MG CAPCR PO SCH (08:28)
[2019-03-10] MEDS: LORazepam 0.5 MG/1 ML VIAL IV PRN ×2 (08:28→17:23)
[2019-03-10] MEDS: FLECAINIDE ACETATE 100 MG TABLET PO SCH ×2 (08:29→21:03)
[2019-03-10] MEDS: predniSONE 5 MG TAB PO SCH (08:29)
[2019-03-10] MEDS: FAMOTIDINE 20 MG TAB PO SCH ×2 (08:29→21:03)
[2019-03-10] MEDS: CHECK FENTANYL PATCH PLACEMENT SCH ×6 (08:31→23:28)
[2019-03-10] MEDS: INSULIN HUMAN REGULAR SC SCH ×4 (08:33→21:03)
--- NOTE | 2019-03-10 10:14 | Surgery Progress Note ---
Date of Service March 10, 2019 Assessment & Plan (1) Adenocarcinoma of colon: POD#13 from right colectomy by Dr. Urbina. Tolerating low fiber diet. Wound infection requiring opening of wound - now improved on vanco (MRSA) and dressing changes. Abdominal exam is stable. No new recommendations. Subjective Has pain with any kind of movement. No abdominal pain. On low fiber diet. Bowels functioning. Rests comfortably after pain meds. Review of Systems Review of Systems: Unobtainable due to mental health condition Physical Exam Gastrointestinal (Abdomen): Inspection/Auscultation: normal bowel sounds; abdomen not distended Percussion/Palpation: abdomen soft dressing changed - wound clean, no erythema Results & Data Vital Signs (Past 12 Hours) Vital Signs Temp Pulse Resp BP BP Pulse Ox 03/10/19 08:10 36.9 C 91 H 20 144/65 H 90 03/10/19 00:41 36.8 C 80 18 138/71 95
--- NOTE | 2019-03-10 14:47 | Hospitalist Progress Note ---
Date of Service March 10, 2019 Assessment & Plan (1) Adenocarcinoma of colon: Had ileocolic resection with ileocolic anastomosis and umbilical hernia repair on 02/[address] Urbina for adenocarcinoma of the colon, at least stage 3. - Seen by Dr. Hilliard on 02/28 with plan for possible adjuvant chemotherapy if her functional status improves. - Surgical input appreciated - She is on low-fiber diet for her recent surgery. - Discussed with surgical team on 03/06: - Soft tissue surgical site infection - Started vanc/Zosyn with cultures pending - On 03/07, switched to dapto for renal-protection. Stopped Zosyn for culture results showing Staph. MRSA also growing from urine culture from 03/05. - By 03/09, her WBC count had normalized, no fever in >48 hours, HR normalized. Tentative 7-day course (could prolong if continues purulence or any additional fever) (End date: 02/10) - On 03/10, seen with Dr. Betsy Orantes who felt wound was looking good. Will continue plan for tentative end date of abx. (2) Lesion of left lung: CT chest on 02/21 showed a left lower lobe lobulated lesion 11 mm in size concerning for malignancy. Concern for metastatic disease, which would change her diagnosis from Stage III to Stage IV adenocarcinoma of the colon. - No shortness of breath or coughing at this time - Outpatient follow up (3) CKD (chronic kidney disease) stage 4, GFR 15-29 ml/min: Baseline Cr ~ 1.2 with eGFR of ~38. Over 03/08-03/10, Cr climbed to 1.7. - FeNa on 03/09 was 0.6%, indicating pre-renal - Gave a 500mL bolus, then 1L bolus. Started standing IV fluids on 03/10, but this should be addressed with family as she cannot stay on IV fluids indefinitely. - Monitor Cr (4) Acute blood loss anemia: Hgb ~10-11 at baseline. - Hgb dropped to 7.2 on 03/03; transfused 1 unit PRBCs with bump to 9.6. - Trend hgb - On 03/10, hgb was 7.2; stable from last few days. (5) GI bleed: Concern for GI bleed on 03/03. Stool was hemoccult positive but not grossly melenic. She is not a candidate for endoscopy at this time. - No further melenic BMs in last few days - Monitor (6) Small bowel obstruction: S/p ileocolectomy on 02/25. SBO resolved. - She is now tolerating PO intake. - Further management per general surgery (7) Acute DVT (deep venous thrombosis): Seen on Doppler on 02/28 in right upper extremity. - Continue anticoagulation (8) PAF (paroxysmal atrial fibrillation): Went into afib with RVR this admission. - Continue diltiazem 180mg PO daily & flecainide 50mg PO Q12h - As of 03/09, rates are 80-90 bpm. - Was on heparin gtt for DVT - Cardiology consultation appreciated - On 03/05, switched to novel anticoagulation (9) Chronic pain: Morphine 15 mg p.o. twice daily as outpatient. - Pain regimen per palliative care. - As of 03/05, on fentanyl patch and PRN oxycodone. - Long discussion with daughter who reports she has a very tearful aspect at baseline. - Adjusting pain meds gently as she is currently either sleeping or crying in pain. - Increased fentynl to 37.5 mcg dose on 03/09 with improvement in tearfulness. Mildly more sleepy, so will need to adjust carefully. (10) Hypothyroid: TSH was 4.4 in 02/2019. No signs/symptoms of hypo-/hyperthyroidism. - Continue home Synthroid 50 mcg (11) Mobitz (type) II atrioventricular block: Had temporary AV block while on beta-parish. Not present on calcium channel parish. - Cardiology consultation appreciated. 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 - Was on IV hydrocortisone around time of surgery. - Now back on prednisone PO. Subjective Sleepy, but in less pain today. Awakens fairly easily with some verbal stimulus, but definitely falls asleep without interaction. Physical Exam Constitutional: + acute distress, + ill appearing, + thin, + in distress and + lethargic Eyes: PERRL, conjunctivae normal, anicteric sclerae ENMT: external ear and nose normal, oropharynx normal Neck: trachea midline, no thyromegaly Respiratory: normal respiratory effort, lungs clear to auscultation Cardiovascular: Heart Sounds: normal S1 and normal S2 Gastrointestinal (Abdomen): normal bowel sounds, soft, nontender, no hepatosplenomegaly Inspection/Auscultation: normal bowel sounds; + abdomen abnormal to inspection (Midline incision without erythema or warmth. No purulence.) Percussion/Palpation: abdomen nontender, no guarding, abdomen not rigid and no hepatosplenomegaly Neurologic: CN's II-XI intact bilaterally; no focal motor deficits Psychiatric: Affect: + anxious affect and + tearful affect Results & Data Vital Signs (Past 12 Hours) Vital Signs Temp Pulse Resp BP Pulse Ox 03/10/19 08:10 36.9 C 91 H 20 144/65 H 90
[2019-03-10] MEDS: NORMOSOL-R 1,000 ML IV SCH ×2 (15:13→23:27)
[2019-03-11] MEDS: OXYCODONE HCL IR 5 MG TAB (IMMEDIATE RELEASE) PO PRN ×4 (01:13→21:10)
[2019-03-11] MEDS: ACETAMINOPHEN 65 ML IV PRN (02:07)
[2019-03-11] MEDS: LORazepam 0.5 MG/1 ML VIAL IV PRN ×2 (02:46→10:52)
[2019-03-11] MEDS: LEVOTHYROXINE SODIUM 50 MCG TABLET PO SCH (05:38)
[2019-03-11 06:35] LABS: Hematocrit (blood only) 19.4 % (37-47); Hemoglobin 6.4 g/dL (12.0-16.0); Mean Corpuscular Volume 92.8 fL (80-100); Mean Platelet Volume 9.4 fL (7.4-10.4); Platelet Count 383 K/uL (130-400); RDW Coefficient of Variation 15.5 % (11.5-14.5); RDW Standard Deviation 53.3 fL (36.4-46.3); Red Blood Count 2.09 M/uL (4.2-5.4); White Blood Count 6.59 K/uL (4.8-10.8)
[2019-03-11 07:02] LABS: Albumin Level 1.3 gm/dl (3.4-5.0); BUN Creatinine Ratio 24.1 (10-20); Calcium 7.5 mg/dl (8.5-10.1); Creatinine Clr Calc Pharmacy 15.8 ml/min; Est GFR (African American) 28.4; Est GFR (Non-African American) 24.5; Magnesium 2.6 mg/dl (1.8-2.4); Potassium 4.3 mmol/L (3.5-5.1)
[2019-03-11 07:04] LABS: Albumin Globulin Ratio 0.4 (0.9-2); Bilirubin,Total 0.4 mg/dl (0.2-1); Globulin 3.4 gm/dl (2.5-4.0); Total Protein 4.7 gm/dl (6.4-8.2)
[2019-03-11] MEDS: dilTIAZem HCL 180 MG CAPCR PO SCH (08:11)
[2019-03-11] MEDS: APIXABAN 2.5 MG TAB PO SCH ×2 (08:11→21:12)
[2019-03-11] MEDS: FAMOTIDINE 20 MG TAB PO SCH ×2 (08:11→21:13)
[2019-03-11] MEDS: predniSONE 5 MG TAB PO SCH (08:12)
[2019-03-11] MEDS: FLECAINIDE ACETATE 100 MG TABLET PO SCH ×2 (08:12→21:13)
[2019-03-11] MEDS: ONDANSETRON INJ 2 MG/ML 2 ML VIAL IV PRN (08:13)
[2019-03-11] MEDS: CHECK FENTANYL PATCH PLACEMENT SCH ×4 (08:18→16:51)
[2019-03-11] MEDS: INSULIN HUMAN REGULAR SC SCH ×4 (08:23→21:12)
[2019-03-11 09:21] LABS: Hematocrit (blood only) 20.8 % (37-47); Hemoglobin 6.9 g/dL (12.0-16.0)
[2019-03-11] MEDS ORDERED: SODIUM CHLORIDE 0.9% 250 ML IV PRN (10:09)
--- NOTE | 2019-03-11 10:43 | Hospitalist Progress Note ---
Date of Service March 11, 2019 Assessment & Plan (1) Adenocarcinoma of colon: Had ileocolic resection with ileocolic anastomosis and umbilical hernia repair on 02/[address] Urbina for adenocarcinoma of the colon, at least stage 3. - Seen by Dr. Hilliard on 02/28 with plan for possible adjuvant chemotherapy if her functional status improves. - Surgical input appreciated - She is on low-fiber diet for her recent surgery. - Discussed with surgical team on 03/06: - Soft tissue surgical site infection - Started vanc/Zosyn with cultures pending - On 03/07, switched to dapto for renal-protection. Stopped Zosyn for culture results showing Staph. MRSA also growing from urine culture from 03/05. - By 03/09, her WBC count had normalized, no fever in >48 hours, HR normalized. Tentative 7-day course (could prolong if continues purulence or any additional fever) (End date: 02/10) - On 03/10, seen with Dr. Betsy Orantes who felt wound was looking good. Will continue plan for tentative end date of abx. -On 03/11 patient had anemia, will transfuse 1 unit of PRBC. Will consult palliative care. (2) Lesion of left lung: CT chest on 02/21 showed a left lower lobe lobulated lesion 11 mm in size concerning for malignancy. Concern for metastatic disease, which would change her diagnosis from Stage III to Stage IV adenocarcinoma of the colon. - No shortness of breath or coughing at this time - Outpatient follow up (3) CKD (chronic kidney disease) stage 4, GFR 15-29 ml/min: Baseline Cr ~ 1.2 with eGFR of ~38. Over 03/08-03/10, Cr climbed to 1.7. - FeNa on 03/09 was 0.6%, indicating pre-renal - Gave a 500mL bolus, then 1L bolus. Started standing IV fluids on 03/10, but this should be addressed with family as she cannot stay on IV fluids indefinitely. - Monitor Cr (4) Acute blood loss anemia: Hgb ~10-11 at baseline. - Hgb dropped to 7.2 on 03/03; transfused 1 unit PRBCs with bump to 9.6. - Trend hgb - On 03/10, hgb was 7.2; stable from last few days. As stated above: transfused on unit of PRBC. (5) GI bleed: Concern for GI bleed on 03/03. Stool was hemoccult positive but not grossly melenic. She is not a candidate for endoscopy at this time. - No further melenic BMs in last few days - Monitor (6) Small bowel obstruction: S/p ileocolectomy on 02/25. SBO resolved. - She is now tolerating PO intake. - Further management per general surgery (7) Acute DVT (deep venous thrombosis): Seen on Doppler on 02/28 in right upper extremity. - Continue anticoagulation (8) PAF (paroxysmal atrial fibrillation): Went into afib with RVR this admission. - Continue diltiazem 180mg PO daily & flecainide 50mg PO Q12h - As of 03/09, rates are 80-90 bpm. - Was on heparin gtt for DVT - Cardiology consultation appreciated - On 03/05, switched to novel anticoagulation (9) Chronic pain: Morphine 15 mg p.o. twice daily as outpatient. - Pain regimen per palliative care. - As of 03/05, on fentanyl patch and PRN oxycodone. - Long discussion with daughter who reports she has a very tearful aspect at baseline. - Adjusting pain meds gently as she is currently either sleeping or crying in pain. - Increased fentynl to 37.5 mcg dose on 03/09 with improvement in tearfulness. Mildly more sleepy, so will need to adjust carefully. (10) Hypothyroid: TSH was 4.4 in 02/2019. No signs/symptoms of hypo-/hyperthyroidism. - Continue home Synthroid 50 mcg (11) Mobitz (type) II atrioventricular block: Had temporary AV block while on beta-parish. Not present on calcium channel parish. - Cardiology consultation appreciated. 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 - Was on IV hydrocortisone around time of surgery. - Now back on prednisone PO. Spent 35 minutes in management of patient. Subjective Patient has pain today. She does not provide further details on the pain but just states that it is all over. She is sobbing and asking for medicine. She also states that she is very hungry. And would like lunch though its 10 am. Patient is also stating that she feels cold and would like another blanket. Patient has no abdominal pain. Patient is informed that she is requiring another unit of blood. Consent is already obtained earlier in hospital stay. Informed nurse. Review of Systems Review of Systems: Unobtainable due to mental health condition Physical Exam Physical Exam: Constitutional: + ill appearing, + thin, Eyes: PERRL, conjunctivae normal, anicteric sclerae ENMT: external ear and nose normal, oropharynx normal Neck: trachea midline, no thyromegaly Respiratory: normal respiratory effort, lungs clear to auscultation Cardiovascular: Heart Sounds: normal S1 and normal S2 Gastrointestinal (Abdomen): normal bowel sounds, soft, nontender, no hepatosplenomegaly Inspection/Auscultation: normal bowel sounds; + abdomen abnormal to inspection (Midline incision without erythema or warmth. No purulence.) Percussion/Palpation: abdomen nontender, no guarding, abdomen not rigid and no hepatosplenomegaly Neurologic: CN's II-XI intact bilaterally; no focal motor deficits Psychiatric: Affect: + anxious affect and + tearful affect Results & Data Vital Signs (Past 12 Hours) Vital Signs Temp Pulse Resp BP Pulse Ox 03/11/19 07:20 36.5 C 84 20 132/75 98
--- NOTE | 2019-03-11 14:21 | Progress Note ---
Date of Service March 11, 2019 Assessment & Plan (1) S/P colectomy: supportive care- transfusion should help diet as tolerated, cont wound care Subjective H/H gradually drifted down- transfusion ongoing positive bm pt has anasarca Physical Exam Physical Exam: no acute bleeding, some Gi function Results & Data Vital Signs (Past 12 Hours) Vital Signs Temp Pulse Pulse Resp BP BP Pulse Ox 03/11/19 13:54 36.2 C L 73 20 135/63 03/11/19 13:24 36.4 C L 75 16 141/76 H 03/11/19 13:09 36.5 C 73 20 144/73 H 94 03/11/19 12:42 36.5 C 76 20 135/59 L 94 03/11/19 07:20 36.5 C 84 20 132/75 98
--- NOTE | 2019-03-11 16:00 | Palliative Care Progress Note ---
Date of Service March 11, 2019 Assessment & Plan (1) Goals of care, counseling/discussion: 1) Goals of care, counseling/discussion: -patient c/o pain "everywhere" -continues on fentanyl patch at 37 mcg with PRN Roxanol -Patient now has soft tissue infection at her surgical site. Also has MRSA UTI. Antibiotics changed to daptomycin on 03/07. Refusing to work with PT/OT due to pain and fatigue -Attempted to discuss goals of care with patient-patient unable to be specific- just wants to go home. Spoke with patient's daughter by phone-we will have case management work with daughter regarding possible hospice care either at home or in a facility (2) Small bowel obstruction: Able to take small bites p.o., poor appetite, continues on TPN (3) Mass of colon: Stage IV adenocarcinoma-not a candidate for chemotherapy due to poor functional status (4) Lesion of left lung: Suspect metastatic disease (5) Chronic pain: Patient appears more comfortable on fentanyl at 37 mcg, continue PRN oxycodone (6) CKD (chronic kidney disease) stage 4, GFR 15-29 ml/min: Difficult to diurese, patient receiving significant amounts of IV fluids via TPN and antibiotics (2) Small bowel obstruction: (3) Mass of colon: (4) Lesion of left lung: (5) Chronic pain: (6) CKD (chronic kidney disease) stage 4, GFR 15-29 ml/min: Subjective Patient seen and examined in her room, no family at bedside, spoke with patient's daughter and Felicia YUN, by phone. Patient arousable, dozes off quickly. Patient does not feel she is getting any better Patient's hemoglobin continues to decrease-was 6.4 this a.m.-patient receiving transfusion. Patient is currently on a low fiber diet-poor p.o. intake, continues on TPN. Patient with stage IV adenocarcinoma of the colon as well as CKD stage IV-having increased edema, difficult to diuresis due to CKD. Patient with MRSA wound infection-IV antibiotics changed to daptomycin on 03/07. Patient's pain is under fair control on fentanyl patch at 37 mcg, she did receive 3 doses of PRN oxycodone as well as 2 doses of PRN Ativan. Spoke with patient's daughter at length by phone-she also is noticing her mother is not improving-discussed options including hospice at home versus at a facility. Collaborated with case management-barrier to speak with daughter regarding options for placement versus home with hospice care. Review of Systems Review of Systems: Patient complains of pain-unable to rate, states she hurts all over Patient denies fever, chills, chest pain, increased abdominal pain or issues Physical Exam Physical Exam: PE: Patient appears comfortable when asleep, increased emotional and physical discomfort when aroused HEENT: EOMI, mild POARCH Respiratory: Respirations unlabored, decreased breath sounds bilateral bases CV: Normal rate Abdomen: No increased pain with palpation Extremities: Increasing lower extremity as well as upper extremity edema Neuro: Patient unable to make medical decisions-decisions deferred to her POA- daughter Felicia Results & Data Vital Signs (Past 12 Hours) Vital Signs Temp Pulse Pulse Resp BP BP Pulse Ox 03/11/19 13:54 97.2 F L 73 20 135/63 03/11/19 13:24 97.5 F L 75 16 141/76 H 03/11/19 13:09 97.7 F 73 20 144/73 H 94 03/11/19 12:42 97.7 F 76 20 135/59 L 94 03/11/19 07:20 97.7 F 84 20 132/75 98 Time Spent Attending Total time spent 40 minutes with greater than 50% of the time spent at bedside assessing patient, assessing pain level, and addressing goals of care. Spoke with patient's daughter by phone regarding options for discharge.
[2019-03-11] MEDS: DAPTOmycin 275 MG in SYRINGE 0 ML IV SCH (17:27)
[2019-03-12] MEDS: CHECK FENTANYL PATCH PLACEMENT SCH ×6 (00:58→16:09)
[2019-03-12] MEDS: ACETAMINOPHEN 65 ML IV PRN (01:25)
[2019-03-12] MEDS: LORazepam 0.5 MG/1 ML VIAL IV PRN (01:26)
[2019-03-12] MEDS: OXYCODONE HCL IR 5 MG TAB (IMMEDIATE RELEASE) PO PRN ×4 (06:08→20:08)
[2019-03-12] MEDS: LEVOTHYROXINE SODIUM 50 MCG TABLET PO SCH (06:08)
[2019-03-12 07:06] LABS: Creatinine Clr Calc Pharmacy 17.7 ml/min; Est GFR (African American) 29.2; Est GFR (Non-African American) 25.2
[2019-03-12] MEDS: dilTIAZem HCL 180 MG CAPCR PO SCH (08:05)
[2019-03-12] MEDS: fentaNYL 25 MCG/HR TDSY TD SCH (08:06)
[2019-03-12] MEDS: fentaNYL 12 MCG/HR TDSY TD SCH (08:06)
[2019-03-12] MEDS: FLECAINIDE ACETATE 100 MG TABLET PO SCH ×2 (08:06→20:09)
[2019-03-12] MEDS: APIXABAN 2.5 MG TAB PO SCH ×2 (08:07→20:10)
[2019-03-12] MEDS: FAMOTIDINE 20 MG TAB PO SCH ×2 (08:07→20:10)
[2019-03-12] MEDS: predniSONE 5 MG TAB PO SCH (08:07)
[2019-03-12 08:38] LABS: Basophils # (auto) 0.01 K/uL (0-0.2); Basophils % (auto) 0.1 %; Eosinophils % (auto) 2.9 %; Hematocrit (blood only) 26.3 % (37-47); Hemoglobin 8.6 g/dL (12.0-16.0); Immature Granulocytes # (auto) 0.07 K/uL (0.00-0.02); Lymphocytes # (auto) 0.66 K/uL (1.2-3.4); Lymphocytes % (auto) 9.7 %; Mean Corpuscular Hgb Conc 32.7 g/dL (32-36); Mean Platelet Volume 9.2 fL (7.4-10.4); Monocytes # (auto) 0.42 K/uL (0.11-0.59); Monocytes % (auto) 6.2 %; Neutrophils # (auto) 5.44 K/uL (1.4-6.5); Neutrophils % (auto) 80.1 %; Platelet Count 373 K/uL (130-400); RDW Coefficient of Variation 16.2 % (11.5-14.5); RDW Standard Deviation 53.3 fL (36.4-46.3); Red Blood Count 2.89 M/uL (4.2-5.4)
[2019-03-12] MEDS: INSULIN HUMAN REGULAR SC SCH ×4 (08:42→21:39)
[2019-03-12 09:12] LABS: Albumin Level 1.5 gm/dl (3.4-5.0); BUN Creatinine Ratio 23.4 (10-20); Calcium 8.3 mg/dl (8.5-10.1); Creatinine Clr Calc Pharmacy 18.3 ml/min; Est GFR (African American) 30.2; Est GFR (Non-African American) 26.1
[2019-03-12 09:14] LABS: Albumin Globulin Ratio 0.4 (0.9-2); Bilirubin,Total 0.4 mg/dl (0.2-1); Globulin 3.9 gm/dl (2.5-4.0); Phosphorus 5.1 mg/dl (2.5-4.9); Total Protein 5.4 gm/dl (6.4-8.2)
--- NOTE | 2019-03-12 13:38 | Surgery Progress Note ---
Date of Service March 12, 2019 Assessment & Plan (1) Adenocarcinoma of colon: POD 15 right hemicolectomy for obstructing CA wound, urine with MRSA, day #6 Daptomycin daily packing changes, wound explored yesterday at bedside, no additional fluid collections H&H 8.05/01 this AM after transfusion yesterday anasarca, continues to have limited po intake poor prognosis, palliative care & account services associate following Subjective moans, c/o skin hurting Physical Exam Cardiovascular: Extremities: + edema Gastrointestinal (Abdomen): Inspection/Auscultation: + abdominal surgical incision (packing changed this morning, no erythema) Percussion/Palpation: abdomen soft Results & Data Vital Signs (Past 12 Hours) Vital Signs Temp Pulse Resp BP Pulse Ox 03/12/19 08:09 36.2 C L 75 18 142/67 H 98
[2019-03-12] MEDS ORDERED: FUROSEMIDE 40 MG/4 ML VIAL IV STA (14:27)
--- NOTE | 2019-03-12 15:17 | Pharmacy Report ---
Pharmacy Glycemic Short Note 2 - Date of Service March 12, 2019 - Glycemic Short BSG Results (Last 24 hours): 03/11/19 03/11/19 03/12/19 16:50 20:18 07:36 Glucose POC Glucose 222 H 260 H 144 H 03/12/19 03/12/19 07:58 11:16 Glucose 101 H POC Glucose 101 H OUTPATIENT ANTIDIABETIC REGIMEN: * none * A1c = 6% on 03/03/19 (indicates pre-diabetes) ASSESSMENT: * 89yo pre-diabetic with hyperglycemia secondary to daily/chronic low dose prednisone, infection, stress, etc. * Patient is still receiving IV dapto for MRSA UTI/wound infection. * Patient is ordered a Type 2 diabetic diet, but appetite is still somewhat poor. Nursing reports that patient is eating ~50% of her meals, however, carb intake is not documented. Carb ratio loosened slightly, as patient has received several doses of insulin the past 24 hours, which were significantly larger than she has been getting the past several days. PLAN FOR INPATIENT GLYCEMIC CONTROL: * No basal insulin needed * Bolus insulin - loosen CR * using regular insulin per scale ACHS or Q6hrs while NPO- may need to change to NovoLog if stacking occurs * Goal Range: Low 110 mg/dL - High 140 mg/dL * Correction Factor: 30 mg/dL/unit * Nutritional/prandial insulin per carb ratio of: 1 unit for every 15 g CHO consumed PLAN FOR DISCHARGE: * A1c 6% on 03/03/19 * This is below goal for patient's age/comorbidities. No indication to start anti-diabetic medications.
[2019-03-12] MEDS ORDERED: FUROSEMIDE 40 MG/4 ML VIAL IV ONE (17:33)
--- NOTE | 2019-03-12 22:43 | Hospitalist Progress Note ---
Date of Service March 12, 2019 Assessment & Plan (1) Adenocarcinoma of colon: Had ileocolic resection with ileocolic anastomosis and umbilical hernia repair on 02/[address] Urbina for adenocarcinoma of the colon, at least stage 3. - Seen by Dr. Hilliard on 02/28 with plan for possible adjuvant chemotherapy if her functional status improves. - Surgical input appreciated - She is on low-fiber diet for her recent surgery. - Discussed with surgical team on 03/06: - Soft tissue surgical site infection - Started vanc/Zosyn with cultures pending - On 03/07, switched to dapto for renal-protection. Stopped Zosyn for culture results showing Staph. MRSA also growing from urine culture from 03/05. - By 03/09, her WBC count had normalized, no fever in >48 hours, HR normalized. Tentative 7-day course (could prolong if continues purulence or any additional fever) (End date: 02/10) - On 03/10, seen with Dr. Betsy Orantes who felt wound was looking good. Will continue plan for tentative end date of abx. -On 03/11 patient had anemia, will transfuse 1 unit of PRBC. Will consult palliative care. On 03/12, it appears family is leaning towards hospice. Case management is working on this. (2) Lesion of left lung: CT chest on 02/21 showed a left lower lobe lobulated lesion 11 mm in size concerning for malignancy. Concern for metastatic disease, which would change her diagnosis from Stage III to Stage IV adenocarcinoma of the colon. - No shortness of breath or coughing at this time - Outpatient follow up (3) CKD (chronic kidney disease) stage 4, GFR 15-29 ml/min: Baseline Cr ~ 1.2 with eGFR of ~38. Over 03/08-03/10, Cr climbed to 1.7. - FeNa on 03/09 was 0.6%, indicating pre-renal - Gave a 500mL bolus, then 1L bolus. Started standing IV fluids on 03/10, but this should be addressed with family as she cannot stay on IV fluids indefinitely. - Monitor Cr (4) Acute blood loss anemia: Hgb ~10-11 at baseline. - Hgb dropped to 7.2 on 03/03; transfused 1 unit PRBCs with bump to 9.6. - Trend hgb - On 03/10, hgb was 7.2; stable from last few days. As stated above: transfused on unit of PRBC. Hemoglobin is above 8 on 03/13 (5) GI bleed: Concern for GI bleed on 03/03. Stool was hemoccult positive but not grossly melenic. She is not a candidate for endoscopy at this time. - No further melenic BMs in last few days - Monitor (6) Small bowel obstruction: S/p ileocolectomy on 02/25. SBO resolved. - She is now tolerating PO intake. - Further management per general surgery (7) Acute DVT (deep venous thrombosis): Seen on Doppler on 02/28 in right upper extremity. - Continue anticoagulation (8) PAF (paroxysmal atrial fibrillation): Went into afib with RVR this admission. - Continue diltiazem 180mg PO daily & flecainide 50mg PO Q12h - As of 03/09, rates are 80-90 bpm. - Was on heparin gtt for DVT - Cardiology consultation appreciated - On 03/05, switched to novel anticoagulation (9) Chronic pain: Morphine 15 mg p.o. twice daily as outpatient. - Pain regimen per palliative care. - As of 03/05, on fentanyl patch and PRN oxycodone. - Long discussion with daughter who reports she has a very tearful aspect at baseline. - Adjusting pain meds gently as she is currently either sleeping or crying in pain. - Increased fentynl to 37.5 mcg dose on 03/09 with improvement in tearfulness. Mildly more sleepy, so will need to adjust carefully. (10) Hypothyroid: TSH was 4.4 in 02/2019. No signs/symptoms of hypo-/hyperthyroidism. - Continue home Synthroid 50 mcg (11) Mobitz (type) II atrioventricular block: Had temporary AV block while on beta-parish. Not present on calcium channel parish. - Cardiology consultation appreciated. 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 - Was on IV hydrocortisone around time of surgery. - Now back on prednisone PO. Spent 25 minutes in management of patient. Subjective 89 yo female reports no new changes. She continues to be complaining of pain and is asking for pain medicine. Review of Systems Review of Systems: Unobtainable due to mental health condition Physical Exam Physical Exam: Constitutional: + ill appearing, + thin, Eyes: PERRL, conjunctivae normal, anicteric sclerae ENMT: external ear and nose normal, oropharynx normal Neck: trachea midline, no thyromegaly Respiratory: normal respiratory effort, lungs clear to auscultation Cardiovascular: Heart Sounds: normal S1 and normal S2 Gastrointestinal (Abdomen): normal bowel sounds, soft, nontender, no hepatosplenomegaly Inspection/Auscultation: normal bowel sounds; + abdomen abnormal to inspection (Midline incision without erythema or warmth. No purulence.) Percussion/Palpation: abdomen nontender, no guarding, abdomen not rigid and no hepatosplenomegaly Neurologic: CN's II-XI intact bilaterally; no focal motor deficits Psychiatric: Affect: + anxious affect and + tearful affect Results & Data Vital Signs (Past 12 Hours) Vital Signs Temp Pulse Resp BP BP Pulse Ox 03/12/19 20:06 70 127/61 03/12/19 15:25 36.3 C L 74 18 149/63 H 98
[2019-03-13] MEDS: CHECK FENTANYL PATCH PLACEMENT SCH ×6 (01:04→17:18)
[2019-03-13] MEDS: LEVOTHYROXINE SODIUM 50 MCG TABLET PO SCH (05:20)
[2019-03-13] MEDS: LORazepam 0.5 MG/1 ML VIAL IV PRN ×3 (05:21→18:26)
--- NOTE | 2019-03-13 06:28 | Progress Note ---
Date of Service March 13, 2019 Assessment & Plan (1) S/P colectomy: cont abd wound care- po as tolerated to SNF when med stable and bed available Subjective comfortable, vitals stable Physical Exam Physical Exam: resting comfortably less edema overall no changes in abd wound Results & Data Vital Signs (Past 12 Hours) Vital Signs Temp Pulse Pulse Resp BP Pulse Ox 03/13/19 00:24 36.3 C L 59 L 18 141/52 H 97 03/12/19 20:06 70 127/61
[2019-03-13] MEDS: predniSONE 5 MG TAB PO SCH (08:02)
[2019-03-13] MEDS: FAMOTIDINE 20 MG TAB PO SCH ×2 (08:02→21:24)
[2019-03-13] MEDS: dilTIAZem HCL 180 MG CAPCR PO SCH (08:02)
[2019-03-13] MEDS: FLECAINIDE ACETATE 100 MG TABLET PO SCH ×2 (08:02→21:23)
[2019-03-13] MEDS: APIXABAN 2.5 MG TAB PO SCH ×2 (08:02→21:24)
[2019-03-13] MEDS: INSULIN HUMAN REGULAR SC SCH ×3 (08:09→18:24)
[2019-03-13] MEDS: OXYCODONE HCL IR 5 MG TAB (IMMEDIATE RELEASE) PO PRN ×3 (09:35→21:22)
--- NOTE | 2019-03-13 13:37 | Pharmacy Report ---
Pharmacy Glycemic Short Note 2 - Date of Service March 13, 2019 - Glycemic Short BSG Results (Last 24 hours): 03/12/19 03/12/19 03/13/19 16:50 19:54 07:44 POC Glucose 123 H 199 H 103 H 03/13/19 11:18 POC Glucose 105 H OUTPATIENT ANTIDIABETIC REGIMEN: * none * A1c = 6% on 03/03/19 (indicates pre-diabetes) ASSESSMENT: * 89yo pre-diabetic with hyperglycemia secondary to daily/chronic low dose prednisone, infection, stress, etc. * Patient is still receiving IV dapto for MRSA UTI/wound infection. * Patient is ordered a Type 2 diabetic diet, but appetite is still poor. Nursing reports that patient is eating ~30-40% of her meals. Since her meal intake is poor, I opted to take out the carb coverage with lunch today and use only a correction factor. * Patient's fasting and lunch BSGs have been below goal today. * Since patient is probably not going to continue on insulin post-discharge given her age/co-morbidities and good A1c, and her food intake is poor, will change Novolog to BID with breakfast and dinner only to minimize the number of fingersticks. PLAN FOR INPATIENT GLYCEMIC CONTROL: * No basal insulin needed * Bolus insulin -removed CR and changed frequency to breakfast and dinner. * using regular insulin BID before breakfast and dinner OR 0800 and 1700 while NPO * Goal Range: Low 110 mg/dL - High 140 mg/dL * Correction Factor: 30 mg/dL/unit * Nutritional/prandial insulin: NONE PLAN FOR DISCHARGE: * A1c 6% on 03/03/19 * This is below goal for patient's age/comorbidities. No indication to start anti-diabetic medications.
[2019-03-13] MEDS: DAPTOmycin 275 MG in SYRINGE 0 ML IV SCH (14:06)
--- NOTE | 2019-03-13 23:47 | Hospitalist Progress Note ---
Date of Service March 13, 2019 Assessment & Plan (1) Adenocarcinoma of colon: Had ileocolic resection with ileocolic anastomosis and umbilical hernia repair on 02/[address] Urbina for adenocarcinoma of the colon, at least stage 3. - Seen by Dr. Hilliard on 02/28 with plan for possible adjuvant chemotherapy if her functional status improves. - Surgical input appreciated - She is on low-fiber diet for her recent surgery. - Discussed with surgical team on 03/06: - Soft tissue surgical site infection - Started vanc/Zosyn with cultures pending - On 03/07, switched to dapto for renal-protection. Stopped Zosyn for culture results showing Staph. MRSA also growing from urine culture from 03/05. - By 03/09, her WBC count had normalized, no fever in >48 hours, HR normalized. Tentative 7-day course (could prolong if continues purulence or any additional fever) (End date: 02/10) - On 03/10, seen with Dr. Betsy Orantes who felt wound was looking good. Will continue plan for tentative end date of abx. -On 03/11 patient had anemia, will transfuse 1 unit of PRBC. Will consult palliative care. On 03/12, it appears family is leaning towards hospice. Case management is working on this. On 03/13 Family is arranging for hospice at [facility]. Working closely with case management. (2) Lesion of left lung: CT chest on 02/21 showed a left lower lobe lobulated lesion 11 mm in size concerning for malignancy. Concern for metastatic disease, which would change her diagnosis from Stage III to Stage IV adenocarcinoma of the colon. - No shortness of breath or coughing at this time - Outpatient follow up (3) CKD (chronic kidney disease) stage 4, GFR 15-29 ml/min: Baseline Cr ~ 1.2 with eGFR of ~38. Over 03/08-03/10, Cr climbed to 1.7. - FeNa on 03/09 was 0.6%, indicating pre-renal - Gave a 500mL bolus, then 1L bolus. Started standing IV fluids on 03/10, but this should be addressed with family as she cannot stay on IV fluids indefinitely. - Monitor Cr (4) Acute blood loss anemia: Hgb ~10-11 at baseline. - Hgb dropped to 7.2 on 03/03; transfused 1 unit PRBCs with bump to 9.6. - Trend hgb - On 03/10, hgb was 7.2; stable from last few days. As stated above: transfused on unit of PRBC. Hemoglobin is above 8 on 03/13 (5) GI bleed: Concern for GI bleed on 03/03. Stool was hemoccult positive but not grossly melenic. She is not a candidate for endoscopy at this time. - No further melenic BMs in last few days - Monitor (6) Small bowel obstruction: S/p ileocolectomy on 02/25. SBO resolved. - She is now tolerating PO intake. - Further management per general surgery (7) Acute DVT (deep venous thrombosis): Seen on Doppler on 02/28 in right upper extremity. - Continue anticoagulation (8) PAF (paroxysmal atrial fibrillation): Went into afib with RVR this admission. - Continue diltiazem 180mg PO daily & flecainide 50mg PO Q12h - As of 03/09, rates are 80-90 bpm. - Was on heparin gtt for DVT - Cardiology consultation appreciated - On 03/05, switched to novel anticoagulation (9) Chronic pain: Morphine 15 mg p.o. twice daily as outpatient. - Pain regimen per palliative care. - As of 03/05, on fentanyl patch and PRN oxycodone. - Long discussion with daughter who reports she has a very tearful aspect at baseline. - Adjusting pain meds gently as she is currently either sleeping or crying in pain. - Increased fentynl to 37.5 mcg dose on 03/09 with improvement in tearfulness. Mildly more sleepy, so will need to adjust carefully. (10) Hypothyroid: TSH was 4.4 in 02/2019. No signs/symptoms of hypo-/hyperthyroidism. - Continue home Synthroid 50 mcg (11) Mobitz (type) II atrioventricular block: Had temporary AV block while on beta-parish. Not present on calcium channel parish. - Cardiology consultation appreciated. 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 - Was on IV hydrocortisone around time of surgery. - Now back on prednisone PO. Spent 25 minutes in management of patient. Subjective She appears comfortable at this moment. She is not complaining of pain currently. Review of Systems Review of Systems: Unobtainable due to mental health condition Physical Exam Physical Exam: Constitutional: + ill appearing, + thin, Eyes: PERRL, conjunctivae normal, anicteric sclerae ENMT: external ear and nose normal, oropharynx normal Neck: trachea midline, no thyromegaly Respiratory: normal respiratory effort, lungs clear to auscultation Cardiovascular: Heart Sounds: normal S1 and normal S2 Gastrointestinal (Abdomen): normal bowel sounds, soft, nontender, no hepatosplenomegaly Inspection/Auscultation: normal bowel sounds; + abdomen abnormal to inspection (Midline incision without erythema or warmth. No purulence.) Percussion/Palpation: abdomen nontender, no guarding, abdomen not rigid and no hepatosplenomegaly Neurologic: CN's II-XI intact bilaterally; no focal motor deficits Results & Data Vital Signs (Past 12 Hours) Vital Signs Temp Pulse Resp BP BP Pulse Ox 03/13/19 23:24 36.7 C 68 21 117/69 97 03/13/19 14:57 36.5 C 67 16 155/71 H 96
[2019-03-14] MEDS: CHECK FENTANYL PATCH PLACEMENT SCH ×8 (01:07→23:40)
[2019-03-14] MEDS: LEVOTHYROXINE SODIUM 50 MCG TABLET PO SCH (06:08)
[2019-03-14] MEDS: dilTIAZem HCL 180 MG CAPCR PO SCH (07:39)
[2019-03-14] MEDS: FLECAINIDE ACETATE 100 MG TABLET PO SCH ×2 (07:39→21:15)
[2019-03-14] MEDS: predniSONE 5 MG TAB PO SCH (07:39)
[2019-03-14] MEDS: APIXABAN 2.5 MG TAB PO SCH ×2 (07:39→21:14)
[2019-03-14] MEDS: FAMOTIDINE 20 MG TAB PO SCH ×2 (07:40→21:15)
[2019-03-14] MEDS: INSULIN HUMAN REGULAR SC SCH ×2 (07:48→17:50)
[2019-03-14] MEDS: OXYCODONE HCL IR 5 MG TAB (IMMEDIATE RELEASE) PO PRN (08:45)
[2019-03-14] MEDS: LORazepam 0.5 MG/1 ML VIAL IV PRN ×2 (09:09→21:48)
--- NOTE | 2019-03-14 13:07 | Progress Note ---
Date of Service March 14, 2019 Assessment & Plan (1) S/P colectomy: plan to d/c to [facility] tomorrow cont current wound care- complete atbx as planned- will order remaining musa to be removed- followup as needed Subjective pt resting comfortably this am no acute events during night Physical Exam Physical Exam: seems to have less edema Results & Data Vital Signs (Past 12 Hours) Vital Signs Temp Pulse Resp BP Pulse Ox 03/14/19 07:41 36.7 C 69 18 169/95 H 94
[2019-03-14] MEDS: MoRPHine SULFATE 5 MG/0.25 ML UDP PO PRN ×2 (19:07→22:40)
--- NOTE | 2019-03-14 22:15 | Hospitalist Progress Note ---
Date of Service March 14, 2019 Assessment & Plan (1) Adenocarcinoma of colon: Had ileocolic resection with ileocolic anastomosis and umbilical hernia repair on 02/[address] Urbina for adenocarcinoma of the colon, at least stage 3. - Seen by Dr. Hilliard on 02/28 with plan for possible adjuvant chemotherapy if her functional status improves. - Surgical input appreciated - She is on low-fiber diet for her recent surgery. - Discussed with surgical team on 03/06: - Soft tissue surgical site infection - Started vanc/Zosyn with cultures pending - On 03/07, switched to dapto for renal-protection. Stopped Zosyn for culture results showing Staph. MRSA also growing from urine culture from 03/05. - By 03/09, her WBC count had normalized, no fever in >48 hours, HR normalized. Tentative 7-day course (could prolong if continues purulence or any additional fever) (End date: 02/10) - On 03/10, seen with Dr. Betsy Orantes who felt wound was looking good. Will continue plan for tentative end date of abx. -On 03/11 patient had anemia, will transfuse 1 unit of PRBC. Will consult palliative care. On 03/12, it appears family is leaning towards hospice. Case management is working on this. On 03/14 Family is arranging for hospice at [facility]. Working closely with case management. Likely discharge for tomorrow. (2) Lesion of left lung: CT chest on 02/21 showed a left lower lobe lobulated lesion 11 mm in size concerning for malignancy. Concern for metastatic disease, which would change her diagnosis from Stage III to Stage IV adenocarcinoma of the colon. - No shortness of breath or coughing at this time - Outpatient follow up (3) CKD (chronic kidney disease) stage 4, GFR 15-29 ml/min: Baseline Cr ~ 1.2 with eGFR of ~38. Over 03/08-03/10, Cr climbed to 1.7. - FeNa on 03/09 was 0.6%, indicating pre-renal - Gave a 500mL bolus, then 1L bolus. Started standing IV fluids on 03/10, but this should be addressed with family as she cannot stay on IV fluids indefinitely. - Monitor Cr (4) Acute blood loss anemia: Hgb ~10-11 at baseline. - Hgb dropped to 7.2 on 03/03; transfused 1 unit PRBCs with bump to 9.6. - Trend hgb - On 03/10, hgb was 7.2; stable from last few days. As stated above: transfused on unit of PRBC. Hemoglobin is above 8 on 03/13 (5) GI bleed: Concern for GI bleed on 03/03. Stool was hemoccult positive but not grossly melenic. She is not a candidate for endoscopy at this time. - No further melenic BMs in last few days - Monitor (6) Small bowel obstruction: S/p ileocolectomy on 02/25. SBO resolved. - She is now tolerating PO intake. - Further management per general surgery (7) Acute DVT (deep venous thrombosis): Seen on Doppler on 02/28 in right upper extremity. - Continue anticoagulation (8) PAF (paroxysmal atrial fibrillation): Went into afib with RVR this admission. - Continue diltiazem 180mg PO daily & flecainide 50mg PO Q12h - As of 03/09, rates are 80-90 bpm. - Was on heparin gtt for DVT - Cardiology consultation appreciated - On 03/05, switched to novel anticoagulation (9) Chronic pain: Morphine 15 mg p.o. twice daily as outpatient. - Pain regimen per palliative care. - As of 03/05, on fentanyl patch and PRN oxycodone. - Long discussion with daughter who reports she has a very tearful aspect at baseline. - Adjusting pain meds gently as she is currently either sleeping or c rying in pain. - Increased fentynl to 37.5 mcg dose on 03/09 with improvement in tearfulness. Mildly more sleepy, so will need to adjust carefully. (10) Hypothyroid: TSH was 4.4 in 02/2019. No signs/symptoms of hypo-/hyperthyroidism. - Continue home Synthroid 50 mcg (11) Mobitz (type) II atrioventricular block: Had temporary AV block while on beta-parish. Not present on calcium channel parish. - Cardiology consultation appreciated. 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 - Was on IV hydrocortisone around time of surgery. - Now back on prednisone PO. Spent 25 minutes in management of patient. Subjective Patient appears to be resting comfortably. Patient is in no distress at this time. Review of Systems Review of Systems: Unobtainable due to mental health condition Physical Exam Physical Exam: Constitutional: + ill appearing, + thin, Eyes: PERRL, conjunctivae normal, anicteric sclerae ENMT: external ear and nose normal, oropharynx normal Neck: trachea midline, no thyromegaly Respiratory: normal respiratory effort, lungs clear to auscultation Cardiovascular: Heart Sounds: normal S1 and normal S2 Gastrointestinal (Abdomen): normal bowel sounds, soft, nontender, no hepatosplenomegaly Inspection/Auscultation: normal bowel sounds; + abdomen abnormal to inspection (Midline incision without erythema or warmth. No purul ence.) Percussion/Palpation: abdomen nontender, no guarding, abdomen not rigid and no hepatosplenomegaly Neurologic: no focal motor deficits Results & Data Vital Signs (Past 12 Hours) Vital Signs Temp Pulse Resp BP Pulse Ox 03/14/19 15:21 36.3 C L 60 20 125/59 L 93
[2019-03-15] MEDS: MoRPHine SULFATE 5 MG/0.25 ML UDP PO PRN (05:40)
[2019-03-15] MEDS: LEVOTHYROXINE SODIUM 50 MCG TABLET PO SCH (06:03)
--- NOTE | 2019-03-15 07:27 | Progress Note ---
Date of Service March 15, 2019 Assessment & Plan (1) S/P colectomy: plan for Hospice care- [facility] cont wound care daily- iodoform gauze and optifoam, atbx for wound and UTI- can stop from wound standpoint- cont if needed for UTI. office as needed- see how she does at [facility] Subjective pt comfortable Physical Exam Physical Exam: resting in bed- no distress wound dressing in place Results & Data Vital Signs (Past 12 Hours) Vital Signs Temp Pulse Resp BP Pulse Ox 03/14/19 23:21 36.4 C L 68 18 142/58 H 97
[2019-03-15] MEDS: INSULIN HUMAN REGULAR SC SCH (07:35)
[2019-03-15] MEDS: fentaNYL 25 MCG/HR TDSY TD SCH (07:38)
[2019-03-15] MEDS: fentaNYL 12 MCG/HR TDSY TD SCH (07:38)
[2019-03-15] MEDS: CHECK FENTANYL PATCH PLACEMENT SCH ×2 (07:38→07:39)
[2019-03-15] MEDS: predniSONE 5 MG TAB PO SCH (07:40)
[2019-03-15] MEDS: APIXABAN 2.5 MG TAB PO SCH (07:40)
[2019-03-15] MEDS: FAMOTIDINE 20 MG TAB PO SCH (07:40)
[2019-03-15] MEDS: dilTIAZem HCL 180 MG CAPCR PO SCH (07:40)
[2019-03-15] MEDS: FLECAINIDE ACETATE 100 MG TABLET PO SCH (07:40)
[2019-03-15] MEDS: DAPTOmycin 275 MG in SYRINGE 0 ML IV SCH (10:52)
--- NOTE | 2019-03-22 07:34 | Discharge Summary ---
Date of Service March 15, 2019 Admission HPI Per Admitting Provider The patient is a 89-year-old female with a past medical history including CKD stage IV, Mobitz type II AV block, hypothyroidism, anxiety, asthma, hypertension who presents to the emergency department with acute onset of severe abdominal pain. Principal Diagnosis Adenocarcinoma of colon Discharge Exam Constitutional: + ill appearing, + thin, Eyes: PERRL, conjunctivae normal, anicteric sclerae ENMT: external ear and nose normal, oropharynx normal Neck: trachea midline, no thyromegaly Respiratory: normal respiratory effort, lungs clear to auscultation Cardiovascular: Heart Sounds: normal S1 and normal S2 Gastrointestinal (Abdomen): normal bowel sounds, soft, nontender, no hepatosplenomegaly Inspection/Auscultation: normal bowel sounds; + abdomen abnormal to inspection (Midline incision without erythema or warmth. No purulence.) Percussion/Palpation: abdomen nontender, no guarding, abdomen not rigid and no hepatosplenomegaly Neurologic: no focal motor deficits Discharge Data Allergies Allergy/AdvReac Type Severity Reaction Status Date / Time codeine Allergy Unknown CAN'T Verified 02/21/19 02:40 REMEMBER erythromycin base Allergy Unknown CAN'T Verified 02/21/19 02:40 REMEMBER Penicillins Allergy Unknown CAN'T Verified 02/21/19 02:40 REMEMBER Sulfa (Sulfonamide Allergy Unknown CAN'T Verified 02/21/19 02:40 Antibiotics) REMEMBER cefuroxime [From Ceftin] AdvReac Intermediate Diarrhea Verified 02/21/19 02:40 banana AdvReac Mild GI symptoms Verified 02/21/19 02:40 melon AdvReac Verified 02/23/19 13:47 Cantaloupe AdvReac Mild GI Uncoded 02/21/19 02:40 SYMPTOMS FROM UNSPECIFIED MELONS Consultations 02/21/19 03:09 ED Decision to Admit Stat 02/21/19 05:03 Consult General Surgery Routine 02/25/19 11:40 Consult Sewer Contractor Routine 02/28/19 06:09 Consult Oncology Routine 02/28/19 12:57 Consult Palliative Care Routine 03/01/19 08:57 Consult Cardiology Routine 03/04/19 06:35 Consult Pain Management Routine Procedures Performed Operation Date: 02/25/19 08:25 Actual Procedures p Ileocolic Resection and - Jordan Urbina MD, FACS s Umbilical Hernia Repair - Jordan Urbina MD, FACS Ordered Studies 02/21/19 00:58 CT abd pelvis IV con only Urgent CT chest w con Urgent 02/28/19 09:17 US venous doppler UE RT Stat 03/06/19 07:10 CT abd pelvis IV con only Urgent 03/06/19 07:13 US venous doppler UE LT Urgent Hospital Course (1) Adenocarcinoma of colon: Had ileocolic resection with ileocolic anastomosis and umbilical hernia re pair on 02/[address] Urbina for adenocarcinoma of the colon, at least stage 3. - Seen by Dr. Hliliard on 02/28 with plan for possible adjuvant chemotherapy if her functional status improves. - Surgical input appreciated - She is on low-fiber diet for her recent surgery. - Discussed with surgical team on 03/06: - Soft tissue surgical site infection - Started vanc/Zosyn with cultures pending - On 03/07, switched to dapto for renal-protection. Stopped Zosyn for culture results showing Staph. MRSA also growing from urine culture from 03/05. - By 03/09, her WBC count had normalized, no fever in >48 hours, HR normalized. Tentative 7-day course (could prolong if continues purulence or any additional fever) (End date: 02/10) - On 03/10, seen with Dr. Betsy Orantes who felt wound was looking good. Will continue plan for tentative end date of abx. -On 03/11 patient had anemia, will transfuse 1 unit of PRBC. Will consult palliative care. On 03/12, it appears family is leaning towards hospice. Case management is working on this. On 03/14 Family is arranging for hospice at [facility]. Working closely with case management. On 03/15 Patient was discharged. (2) Lesion of left lung: CT chest on 02/21 showed a left lower lobe lobulated lesion 11 mm in size concerning for malignancy. Concern for metastatic disease, which would change h er diagnosis from Stage III to Stage IV adenocarcinoma of the colon. - No shortness of breath or coughing at this time - Outpatient follow up (3) CKD (chronic kidney disease) stage 4, GFR 15-29 ml/min: Baseline Cr ~ 1.2 with eGFR of ~38. Over 03/08-03/10, Cr climbed to 1.7. - FeNa on 05/04 was 0.6%, indicating pre-renal - Gave a 500mL bolus, then 1L bolus. Started standing IV fluids on 03/10, but this should be addressed with family as she cannot stay on IV fluids indefinitely. - Monitor Cr (4) Acute blood loss anemia: Hgb ~10-11 at baseline. - Hgb dropped to 7.2 on 03/03; transfused 1 unit PRBCs with bump to 9.6. - Trend hgb - On 03/10, hgb was 7.2; stable from last few days. As stated above: transfused on unit of PRBC. Hemoglobin is above 8 on 03/13 (5) GI bleed: Concern for GI bleed on 03/03. Stool was hemoccult positive but not grossly melenic. She is not a candidate for endoscopy at this time. - No further melenic BMs in last few days - Monitor (6) Small bowel obstruction: S/p ileocolectomy on 02/25. SBO resolved. - She is now tolerating PO intake. - Further management per general surgery (7) Acute DVT (deep venous thrombosis): Seen on Doppler on 02/28 in right upper extremity. - Continue anticoagulation (8) PAF (paroxysmal atrial fibrillation): Went into afib with RVR this admission. - Continue diltiazem 180mg PO daily & flecainide 50mg PO Q12h - As of 03/09, rates are 80-90 bpm. - Was on heparin gtt for DVT - Cardiology consultation appreciated - On 03/05, switched to novel anticoagulation (9) Chronic pain: Morphine 15 mg p.o. twice daily as outpatient. - Pain regimen per palliative care. - As of 03/05, on fentanyl patch and PRN oxycodone. - Long discussion with daughter who reports she has a very tearful aspect at baseline. - Adjusting pain meds gently as she is currently either sleeping or crying in pain. - Increased fentynl to 37.5 mcg dose on 03/09 with improvement in tearfulness. Mildly more sleepy, so will need to adjust carefully. (10) Hypothyroid: TSH was 4.4 in 02/2019. No signs/symptoms of hypo-/hyperthyroidism. - Continue home Synthroid 50 mcg (11) Mobitz (type) II atrioventricular block: Had temporary AV block while on beta-parish. Not present on calcium channel parish. - Cardiology consultation appreciated. 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 - Was on IV hydrocortisone around time of surgery. - Now back on prednisone PO. Total Time Total Time Spent Total Time Spent (In Minutes): 32 Total Time Includes: Examination of the Patient, Discharge Planning and Medication Reconciliation Discharge Plan Discharge Items Patient Disposition: Hospice - Medical Facility Reason For Visit: SBO, COLON MASS, LLL LOBULATED LESION Discharge Diagnosis: SBO, colon mass Discharge Goals: Decrease discomfort Activity: As commented below Activity Comment: Bedrest/ as per hospice Non-emergency contact: Specialist Call non-emergency contact if: your pain is not controlled Follow-up/Referrals: Mil Durand [Primary Care Provider] - Diet: Regular Addtl Provider Instructions: Will be discharged on hospice. Will continue Alexander cath. May consider voiding trial at hospice. Prescriptions: New diltiazem HCl 180 mg Capsule,Extended Release 24hr 180 mg PO QAM Qty: 30 RF: 0 Eliquis 2.5 mg Tablet 2.5 mg PO BID Qty: 60 RF: 0 morphine concentrate 100 mg/5 mL (20 mg/mL) Solution 0.25 ml PO Q2H PRN (Reason: pain) Qty: 5 RF: 0 prednisone 5 mg Tablet 5 mg PO DAILY Qty: 30 RF: 0 sennosides [senna] 8.8 mg/5 mL Syrup 8.8 mg PO BID PRN (Reason: constipation) Qty: 100 RF: 0 famotidine 20 mg Tablet 20 mg PO BID Qty: 60 RF: 0 levothyroxine [Synthroid] 50 mcg Tablet 50 mcg PO DAILYBB Qty: 30 RF: 0 flecainide 100 mg Tablet 50 mg PO Q12 Qty: 60 RF: 0 fentanyl 25 mcg/hr Patch 72 Hour 25 mcg transdermal Q3D@0900 Qty: 5 RF: 0 fentanyl 12 mcg/hr Patch 72 Hour 12 mcg transdermal Q3D@0900 Qty: 5 RF: 0 Continued promethazine 25 mg Tablet 25 mg PO Q6H PRN (Reason: Nausea) RF: 0 cholecalciferol (vitamin D3) [Vitamin D3] 1,000 unit Tablet 1,000 unit PO QPM RF: 0 Discontinued prednisone 5 mg Tablet 5 mg PO DAILY RF: 0 aspirin 81 mg Tablet,Delayed Release (Dr/Ec) 81 mg PO DAILY RF: 0 levothyroxine 50 mcg Tablet 50 mcg PO DAILY RF: 0 morphine 15 mg Tablet 15 mg PO BID RF: 0 Stand-Alone Forms: [facility] Discharge Orders: Discharge Order (Routine); Ordered 03/15/19 Ordered By: Carlos Roberts Admission Data Admit Date/Time: 02/21/19 03:38 Attending Provider: Carlos Roberts Admit Provider: Buck Bose Primary Care Provider: Mil Durand Other Providers: Sherwin Ding ; Buck Bose ; Dieudonne Joya ; Rona Hernandez ; Rob Hilliard V ; Pratik Schroeder ; Beth Fabian ; Alison Lundberg ; Christopher Velazquez ; Marco Mendoza ; K[address] ; Chavez García ; Pk Harrison Jr ; Agustin Melendez ; Yadira Driscoll ; Phoebe Devi ; Tom Medina ; Tom Sharp ; Les Guzmán ; Jordan Ba ; Alysia Taylor ; Nargis Mcclendon ; Alysia Funk Service: Medical Other Interventions: Discharge Summary Assessment (RN) Last Done: 03/15/19 10:59 DC Date/Time DO NOT enter until pt leaves facility: 03/15/19 15:47
== END 2019-03-15 15:47 | disposition hospice, inpatient (51) | DRG 330 ==
LOC: ED 00:35 → 3W 03:38 → SUATTDRO 03:38 → 3W 04:14 → 1E 02-25 11:39 → 3N 02-26 14:58 → 2W 02-28 21:23 → 2S 02-28 22:20 → 4E 03-06 18:23